=== PATIENT | male | born 1955 | race Caucasian/White ===

== ENCOUNTER → 2017-06-09 12:39 | Outpatient (CLI) | payer MEDICAID, SELFPAY ==
--- NOTE | 2017-06-09 12:42 | STE_ITS ---
Reason For Study: ASHD WITHOUT ANGINA Stress Results Protocol: Dobutamine Protocol Maximum Predicted HR: 161 bpm Target HR: 137 bpm% Maximum Predicted HR: 88 % DurationHeart Rate Stage (mm:ss) (bpm) BPDos eComment BASELINE 87 148/89 STAGE 1 3:50 10 9 160/7310.00 STAGE 2 2:54 14 2 166/8020.00 RECOVERY 102 142/8 7 4 CC DEFINITY FOR TEST Stress Duration: 6:44 mm:ss Maximum Stress HR: 142 bpm Baseline Echocardiogram Findings The estimated ejection fraction is 65 %. Stress Echo Wall motion Data Resting WMIntermediate WMStress WM Resting Wall Motion Wall Motion Stress No regional wall motion No regional wall motion abnormalities noted. abnormalities noted. EKG Data Normal intervals are noted. The patient was titrated from 10 mcg to a maximum of 20 mcg of dobutamine during the stress. The maximum heart rate attained was 148 beats per minute. This was 91% of maximum predicted heart rate. During dobutamine infusion, there were no ST or T wave changes noted to suggest ischemia. Interpretation Summary The study was technically difficult. Contrast injection was performed. The estimated ejection fraction is 65 %. The patient was titrated from 10 mcg to a maximum of 20 mcg of dobutamine during the stress. Normal adequate dobutamine echocardiogram. Negative for ischemia by EKG and echocardiographic criteria. No anginal symptoms noted. No arrhythmias noted. Rare PVCs noted. Hypertensive blood pressure response to dobutamine. Test terminated due to attainment of target heart rate. Final LVEF of 70%. No complications. Decreased sensitivity due to very poor echo windows. Ordering Physician: Stefan Lorenzana Referring Physician: Stefan Lorenzana Performed By: Esther Nicholson, RDNINFA, RVT
== END ==
PROVIDERS: Family Provider Internal Medicine; PCP Internal Medicine; Visit Provider Internal Medicine Cardiovascular Disease
DX: I25.10 Atherosclerotic heart disease of native coronary artery without angina pectoris (principal); R07.9 Chest pain, unspecified; E78.4 Other hyperlipidemia; R07.89 Other chest pain
CPT/HCPCS: 93017; 93350; J7030; Q9957; A4216; C8928

== ENCOUNTER 2017-12-12 08:11 | Day surgery (SDC) | payer MEDICAID, SELFPAY ==
[2017-12-12 07:05] VITALS: BMI 31.3
[2017-12-12 08:26] LABS: Prothrombin Time Fingerstick 12.4 SEC (11.9-14.4)
--- NOTE | 2017-12-12 10:28 | CL.D_ITS ---
Patient Name: CORIE TAN Study Date: 12/12/2017 Performing: Harrison Fontenot MD Ht: inches cm : 1955 Wt: lbs kg Age: 62 Gender: male BSA: PROCEDURE(S) PERFORMED NA34-SHL/COR/LV CLINICAL PROFILE AND INDICATIONS Indications: Other Heart Failure: None Stress/Imaging Stress/Image Study Performed: No CAD Presentations: Symptom unlikely to be ischemic. CONCLUSIONS Mild coronary artery disease with no obstructive segments noted RECOMMENDATIONS Medical therapy DESCRIPTION OF PROCEDURE The patient arrived to the procedure lab. The risks and benefits of the procedure as well as a full d escription of our services here and current unavailability of surgical backup were fully explained to the patient and/or their significant other prior to the catheterization. The Timeout was completed, verifying the correct patient and procedure. The patient's procedural site was prepped and draped in the usual fashion. Local anesthetic was given subcutaneously to right groin region with Lidocaine 2%. Using a modified Seldinger technique, arterial access was obtained via the right femoral artery, a 5 Fr sheath was inserted. Left Coronary Artery selective angiography was performed in multiple views u sing a 5 Fr. JL4 catheter. Right Coronary Artery selective angiography was then performed in multiple views using a 5 Fr. 3DRC (Raj) catheter. Left Ventriculography was performed in WERNER projection using a 5 Fr. Pigtail catheter. LV to AO pullback pressures were then recorded.Contrast was injected through the sheath and the Right Iliac and Femoral artery were assessed for possible closure device.T he arterial sheath was pulled and manual compression applied until hemostasis is achieved. CORONARY ANGIOGRAPHY DOMINANCE: Right Dominant LEFT HEART ASSESSMENT Left Ventricular Ejection Fraction: by LV Gram 60 % Normal Left Ventricular systolic function LEFT MAIN: Angiographically normal LEFT ANTERIOR DECENDING ARTERY: Mild luminal irregularities MID LAD: Moderate luminal irregularities up to 50% CIRCUMFLEX ARTERY: Mild luminal irregularities RIGHT CORONARY ARTERY: Mild luminal irregularities COMPLICATIONS No Complications PROCEDURE MEDICATIONS Versed 1 mg IV Fentanyl 25 mcg IV Oxygen: 4 L/min via nasal cannula SUMMARY OF HEMODYNAMIC DATA Time AIR REST ECG 09:01:53 AO 112/70 (88) SA 10:00:16 LV 117/3, 9 10:06:48 LV 115/3, 9 10:06:54 LV 122/3, 11 10:08:40 LVp 120/1, 11 10:08:55 AOp 117/64 (87) 10:09:00 Signed By Harrison Fontenot MD On 12/12/2017 10:27:42 Harrison Fontenot MD
== END 2017-12-12 15:46 | disposition home or self-care (01) ==
PROVIDERS: Family Provider Internal Medicine; PCP Internal Medicine; Referring Provider Internal Medicine Cardiovascular Disease; Visit Provider Internal Medicine Cardiovascular Disease
DX: I25.10 Atherosclerotic heart disease of native coronary artery without angina pectoris (principal); I73.9 Peripheral vascular disease, unspecified; I10 Essential (primary) hypertension; E78.5 Hyperlipidemia, unspecified; J44.9 Chronic obstructive pulmonary disease, unspecified; G40.409 Other generalized epilepsy and epileptic syndromes, not intractable, without status epilepticus; G47.33 Obstructive sleep apnea (adult) (pediatric); F17.210 Nicotine dependence, cigarettes, uncomplicated; E66.9 Obesity, unspecified; Z68.31 Body mass index [BMI] 31.0-31.9, adult; R07.9 Chest pain, unspecified; R94.39 Abnormal result of other cardiovascular function study; R00.2 Palpitations; Z86.718 Personal history of other venous thrombosis and embolism; Z86.711 Personal history of pulmonary embolism; Z79.01 Long term (current) use of anticoagulants; Z79.899 Other long term (current) drug therapy
CPT/HCPCS: 36416; 85610; 93458; 99152; 99153; C1760; J7040; Q9967; J2405

== ENCOUNTER 2017-12-14 14:04 | Emergency (ER) | payer MEDICAID, SELFPAY ==
[2017-12-14 14:05] VITALS: BP 140/84; PULSE 86; RESP 14; TEMP 37.4; O2SAT 94; BMI 31.6
[2017-12-14 16:16] VITALS: BP 134/80; PULSE 80; RESP 18; O2SAT 95
--- NOTE | 2017-12-14 16:27 | RAD_ITS ---
STUDY: X-RAY - LEFT SHOULDER REASON FOR EXAM: Male, 62 years old. Trauma TECHNIQUE: 2 view(s) of the shoulder. COMPARISON: None. FINDINGS: Normal glenohumeral articulation. Normal acromioclavicular joint. Normal acromion. There is a questionable cortical step off of the lateral aspect of the humeral head noted on the transscapular view. The soft tissue structures are unremarkable. Normal visualized pulmonary apex. RAD/Shoulder min 2 Views IMPRESSION: Questionable cortical step off of the lateral aspect of the humeral head noted on the transscapular view raising the suspicion of fracture. If clinically indicated, CT of the left shoulder would be helpful for further evaluation. Electronically Signed: Ford Craig MD at 16:49 EDT , Service support ,
--- NOTE | 2017-12-14 17:21 | ED.VISSUMM ---
- ER Visit Summary Date of Service: 12/14/17 Chief Complaint: [Injury left shoulder] History of Present Illness: The patient is a 62 M [presents the emergency department complaint of injury to his left shoulder that occurred 3 months ago. Patient states that his fianc?s daughter was falling as she was having a seizure and he try to catch her with his left arm. Patient immediately felt a tearing-like sensation in his left shoulder. Patient's had severe pain since that time. Patient states the pain is worse with certain movements. Patient is right-hand dominant. Patient also states he had a heart cath 2 days ago which was unremarkable.] Physical Examination: [HEENT-PERRLA, EOMI. Cranial nerves II through XII grossly intact. TMs clear. Mucous membranes moist. No adenopathy. Cardiovascular-regular rate and rhythm without murmur or ectopy Lungs-clear to auscultation, chest wall stable without crepitus or subcu emphysema Abdomen-normoactive bowel sounds, soft, nontender, no rebound or rigidity, no peritoneal signs. Extremities-intact ?4, normal range of motion, normal pulses, atraumatic]. Left shoulder-patient has diffuse tenderness over the glenohumeral joint. There is no obvious deformity or sulcus sign. Patient has pain with abduction and has a hard time resisting abduction at the glenohumeral joint. He is neurovascular intact distally. Deep tendon reflexes are plus 2 out of 4 bilaterally at the bicep and tricep as well as the brachial radialis. Test Results: [X-ray of the left shoulder read by radiology as questionable cortical defect of the humeral head on one view raising possibility for an avulsion type fracture.] Emergency Department Course and Treatment: [Patient will receive a sling in the emergency department. I suspect patient may have injured his rotator cuff however patient will be referred to orthopedics on-call for follow-up.] Treatment Plan: [Follow-up with orthopedics and given a sling. Patient given a prescription for [place] for pain] Disposition: [Discharged home in stable condition] Impression: [Left humeral head avulsion fracture with possible internal derangement of shoulder] This note was generated with [employer] Worksation software. It may contain incorrect words, spelling, and punctuation that were not noted in review of the chart prior to signing ED Disposition - Plan for ED Patient: Chief Complaint: Upper Extremity Injury Referrals: Josefina Newby MD [Primary Care Provider] -
--- NOTE | 2017-12-14 17:23 | ED.DEP ---
ED Disposition - Plan for ED Patient: Chief Complaint: Upper Extremity Injury Instructions: ED Sprain Shoulder, ED Fx Shoulder Prescriptions: Hydrocodone/Acetaminophen [[place] 5-325 Tablet] 1 - 2 ea PO 4X/DAY PRN PRN 5 Days #20 tab PRN Reason: Pain Referrals: Josefina Newby MD [Primary Care Provider] - Tyler De León MD [STAFF PHYSICIAN] - 3-5 Days
[2017-12-14 17:30] VITALS: BP 140/68; PULSE 86; RESP 20; O2SAT 96
== END 2017-12-14 17:31 | disposition home or self-care (01) ==
PROVIDERS: Emergency Provider Emergency Medicine; Family Provider Internal Medicine; PCP Internal Medicine
DX: S42.292A Other displaced fracture of upper end of left humerus, initial encounter for closed fracture (principal); X58.XXXA Exposure to other specified factors, initial encounter; Y93.89 Activity, other specified; J44.9 Chronic obstructive pulmonary disease, unspecified; Z72.0 Tobacco use
CPT/HCPCS: 73030; 99283

== ENCOUNTER 2018-04-29 01:15 | Observation (INO) | payer MEDICAID, SELFPAY ==
[2018-04-29] VITALS (16 sets, daily range): BP systolic 86–130; BP diastolic 66–98; PULSE 81–120; RESP 12–35; TEMP 36.9–37.8; O2SAT 91–97; BMI 33.4; BMI 31.1
--- NOTE | 2018-04-29 01:27 | EKG12_ITS ---
Test Reason : SOB Blood Pressure : / mmHG Vent. Rate : 115 BPM Atrial Rate : 115 BPM P-R Int : 142 ms QRS Dur : 088 ms QT Int : 326 ms P-R-T Axes : 079 063 080 degrees QTc Int : 450 ms Sinus tachycardia Otherwise normal ECG Confirmed by ADITHYA AVILES, JOSSELINE ([id number]), deputy editor in chief BRODY COLLINS ([id number]) on 05/02/2018 4:48:28 PM Referred By: DC Confirmed By:JOSSELINE HAJI MD
[2018-04-29] MEDS: Ipratropium/Albuterol Sulfate 3 ML AMPUL.NEB INHALATION ×3 (01:35→11:09)
[2018-04-29] MEDS: MethylPREDNISolone 125 MG/2 ML Vial IV (01:36)
[2018-04-29 01:38] LABS: Absolute Lymphocyte Count 2.77 X10^3/ul (0.83-4.51); Absolute Neutrophil Count 2.9 X10^3/uL (2.0-7.7); Basophil# 0.02 X10^3/uL; Basophil% 0.3 % (0-1); Eosinophil# 0.07 X10^3/uL; Hematocrit 48.1 % (40-54); Lymphocyte # 2.77 X10^3/ul (4.0); Lymphocyte % 38.2 % (19-41); Mean Corp Hgb Conc 33.3 g/gl (32-36); Mean Corpuscular Hgb 34.9 pg (27.0-32.0); Mean Corpuscular Volume 104.8 fL (80-94); Mean Platelet Vol. 10.2 fl (6.2-12.0); Monocyte% 20.7 % (0-10); Neutrophil # 2.86 X10^3/uL (2.7-7.7); Neutrophil % 39.2 % (47-70); Platelet Count 114 K/mm3 (150-450); RBC Distribution Width CV 13.2 % (11.6-14.6); RBC Distribution Width SD 50.4 fl (35.1-43.9); Red Blood Count 4.59 M/mm3 (4.6-6.2); White Blood Count 7.3 K/mm3 (4.4-11.0)
[2018-04-29 01:39] LABS: POSITIVE COUNT NO; POSITIVE DIFFERENTIAL NO; POSITIVE MORPHOLOGY NO
--- NOTE | 2018-04-29 01:40 | RAD_ITS ---
STUDY: X-RAY CHEST REASON FOR EXAM: Male, 62 years old. Sore throat TECHNIQUE: Single frontal view of the chest. COMPARISON: None. FINDINGS: Chronic interstitial lung changes without superimposed acute alveolar disease. There is no demonstrated pleural abnormality. Normal size heart. Normal mediastinum and angie. Normal visualized pulmonary arteries. There is atherosclerotic calcification of the aortic arch with tortuosity. Normal visualized thoracic spine. Normal visualized ribs, clavicles, and shoulders. There is no demonstrated abnormality of the visualized soft tissue structures of the upper abdomen. RAD/Chest 1 View (Portable) IMPRESSION: Chronic interstitial lung changes without superimposed acute alveolar disease. Electronically Signed: Trell Sal MD at 2:25 EST Tel , Service support ,
[2018-04-29 01:45] LABS: International Normalized Ratio 1.4; Prothrombin Time (Protime)PT. 17.2 SECONDS (11.7-14.9)
[2018-04-29 01:55] LABS: ALB/GLOB Ratio 0.8 RATIO (0.9-2.4); AST(SGOT) 41 U/L (15-37); Alanine Aminotransfer ALT/SGPT 22 U/L (16-61); Albumin, Serum 3.1 g/dL (3.2-5.0); Alkaline Phosphatase 83 U/L (45-117); Anion Gap 6 (5-15); BUN 11 mg/dL (7-18); BUN/Creat Ratio 15.9 RATIO (10-20); Calcium,Total 8.7 mg/dL (8.5-10.1); Chloride 102 mmol/L (98-107); Creatinine, Serum 0.69 mg/dL (0.70-1.30); EST Glomerular Filtration Rate 123 mL/min (>60); Est Glom Filt Rate - Afr Amer 149 mL/min (>60); Estimated Creatinine Clearance 113.85 ml/min; Globulin 4.1 g/dL (2.2-4.2); Glucose 96 mg/dL (74-106); Potassium 4.4 mmol/L (3.5-5.1); Protein, Total 7.2 g/dL (6.4-8.2); Sodium Level 134 mmol/L (136-145)
--- NOTE | 2018-04-29 02:00 | CPS ---
INCREASED IPAP TO 16-DR AWARE
[2018-04-29 02:01] LABS: Lactic Acid 1.1 mmol/L (0.4-2.0)
[2018-04-29 02:06] LABS: Allen Test POS; Base Excess 1 mmol/L (-2 to +2); Bicarbonate 25.5 mmol/L (22-26); Blood Gas Specimen Type ART; EPAP 7; FI02 40; IPAP 16; PO2 95 mmHG (75-100); RR 12; SITE L Radial; SO2 97 % (95-99); Time Given 154; Total Carbon Dioxide 27 mmol/L
[2018-04-29 04:04] LABS: Bacteria 0 SEEN /hpf (None Seen); Mucous, Urine 0 SEEN /hpf (<or=2+); White Blood Cells 0 SEEN /hpf (0-5)
--- NOTE | 2018-04-29 04:06 | CT_ITS ---
STUDY: CTA CHEST REASON FOR EXAM: Male, 62 years old. SOB RADIATION DOSAGE (If Supplied By Facility): CTDIvol = ( 17.87 ) mGy, DLP = ( 601.92 ) mGycm TECHNIQUE: The examination was performed with the intravenous administration of Isovue 370 100ML IV. Post-processing of the angiographic images was performed, with multiplanar reformation and 3D reconstruction. Individualized dose optimization techniques were used for this CT. COMPARISON: 06/18/2015 FINDINGS: Normal enhancement of the main pulmonary artery and right and left pulmonary arteries. Normal enhancement of the bilateral peripheral pulmonary arteries. There is no demonstrated pulmonary embolism. Normal thoracic aorta and visualized great vessels. There is no demonstrated aortic dissection. Normal heart and pericardium. Normal mediastinum. Calcified right hilar lymph nodes. Normal visualized trachea and bronchi. Pulmonary emphysema. Normal pleura. Normal chest wall structures. Normal osseous structures. Normal visualized upper abdomen. CT/CTA Chest W/WO Contrast IMPRESSION: Normal CTA chest examination, without a demonstrated pulmonary embolism or arterial dissection. Electronically Signed: Trell Sal MD at 5:36 EST Tel , Service support ,
[2018-04-29 04:07] LABS: Color, Urine Yellow (Yellow); Glucose, Dipstick Normal (Normal); Ketone-Dipstick 5 mg/dl (Negative); Leukocyte Esterase-Dipstick Negative /ul (Negative); Nitrite-Dipstick Negative (Negative); Occult Blood-Urine 10 /ul (Negative); Protein-Dipstick Negative (Negative); Urine Bilirubin Dipstick Negative (Negative); Urine Clarity Sl. Cloudy (Clear); Urine Urobilinogen 1 mg/dl (Normal)
[2018-04-29 04:13] LABS: Amorphous Sediment 1+ URATE; Red Blood Cells-Urine 0-5 SEEN /hpf (0-5); Squamous Epithelial Cells - UA 0-5 SEEN /hpf (0-5)
--- NOTE | 2018-04-29 04:43 | HP.PCM_ITS ---
Problem List (1) COPD exacerbation Status: Chronic History of Present Illness Date of Admission: 04/29/18 Chief Complaint: shortness of breath The patient is a 62 year old M with a significant history of COPD; seizure disorder and bilateral lower extremity edema who presented to the emergency department because of 1 day history of progressively worsening shortness of breath. Associated with his symptoms is wheezing and increased cough. Also he reports that he has productive cough of shields to greenish sputum which is changed from previous. Further, he had a sore throat. Emergency department doctor reported that patient was hypoxic with respiratory rate in the 80s for which reason he was on a nonrebreather mask and he was transitioned to BiPAP. Also patient was noted to be tripoding and was having purse lips breathing. At the emergency department patient was given steroids and DuoNeb. Because he complained of chest pain a CTPA was done but it was unremarkable for PE. Patient reported that he has a CPAP machine that is broken so for each night he wakes up 3-4 times because of difficulty breathing. He reported that his CPAP machine will be delivered to his home on 05/01/2018. Also, he reported that he has been too weak and he is unable to maintain a steady gait to walk. At emergency department he was found to have INR of 1.4. 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 Past Medical History Past Medical History (Chronic Problems): Chronic Problems COPD exacerbation (Chronic) History of DVT (deep vein thrombosis) (Chronic) History of pulmonary embolism (Chronic) Seizure disorder (Chronic) COPD (chronic obstructive pulmonary disease) (Chronic) Allergies No Known Allergies Allergy (Verified 04/29/18 01:22) Home Medications: Ambulatory Orders Medication Instructions Recorded Divalproex Sodium [Depakote ER] 1,000 mg PO QHS 10/30/14 Divalproex Sodium [Depakote ER] 500 mg PO BID 10/30/14 Warfarin [Coumadin] 5 mg PO SUMOWETHFRSA 10/30/14 Albuterol Inhaler [Ventolin Hfa] 1 - 2 puff INHALATION Q4H PRN PRN 05/28/16 Gabapentin [Neurontin] 300 - 600 mg PO TID 05/28/16 Mometasone/Formoterol [Dulera 200 2 puff IH BID 05/28/16 Mcg/5 Mcg Inhaler] Potassium Chloride [K-Dur] 10 meq PO TID 05/28/16 Acetaminophen [Tylenol] 650 mg PO Q6H PRN 12/12/17 Albuterol Sulfate [Proventil Hfa] 6.7 gm IH Q4H PRN 12/12/17 Cholecalciferol (Vitamin D3) 50,000 unit PO Q7D 12/12/17 [Vitamin D] Furosemide [Lasix] 40 mg PO BREAKFAST 12/12/17 Guaifenesin [Mucinex] 600 mg PO BID 12/12/17 Ipratropium/Albuterol Sulfate 3 ml INHALATION Q4HWA.RT 12/12/17 [Duoneb] Nitroglycerin [Nitrostat] 0.4 mg SUBLINGUAL Q5M PRN 12/12/17 Oxygen, Home [Home Oxygen] 2 - 4 lpm NASAL DAILY 12/12/17 Pravastatin [Pravachol] 40 mg PO QHS 12/12/17 Varenicline [Chantix] 1 mg PO BID 12/12/17 Furosemide [Lasix] 20 mg PO LUNCH 04/29/18 Oxycodone HCl/Acetaminophen 1 - 2 each PO Q6H PRN PRN 04/29/18 [Endocet 5-325 Tablet] Tiotropium [place] [Spiriva 18 MCG] 2 puff INHALATION DAILY 04/29/18 Warfarin [Coumadin ([facility])] 2 mg PO TU 04/29/18 Surgical History: no surgical history, appendectomy, - - Liver biopsy Psychiatric History: No pertinent psych hx Smoking Status: Current every day smoker Alcohol: None - *Family History Maternal History Items: COPD, - Paternal History Items: Unknown - Does not know his paternal medical history Review of Systems Constitutional: Reports: Chills, Weakness. Denies: Weight Change HEENT: Denies: Head Aches, Sinus Congestion, Sinus Drainage Cardiovascular: Denies: Chest Pain, Palpitations Respiratory: Reports: Cough, Shortness of Breath, Shortness of breath upon exertion, Wheezing. Denies: Sputum production Gastrointestinal: Denies: Abdominal Pain, Nausea, Vomiting Genitourinary: Denies: Dysuria Musculoskeletal: Denies: Joint Pain, Joint Tenderness Skin: Denies: Rash, Wounds Neurological: Denies: Numbness, Tingling, Focal weakness Psychiatric: Denies: Anxiety, Depression, Homicidal Ideations, Suicidal Ideations Hematologic/ Lymphatic: Denies: Easy Bruising, Easy Bleeding VTE Information - Inpt Only VTE Present on Admission: No VTE Mechan Device Prophylaxis: None VTE Pharm Prophylaxis ordered?: No Reason prophylaxis not ordered:: Treatment Not Indicated - History of DVT and PE and started on Lovenox to bridge his Coumadin. - Physical Exam General: Alert, Oriented x3, Cooperative HEENT: Atraumatic, PERRLA, EOMI, Normocephalic Neck: Supple, No JVD, Negative Carotid Bruits Lungs: Diminished Cardiovascular: Regular rate, No murmurs Abdomen: Bowel Sounds Present, Soft, Non Tender Extremities: No edema, Capillary Refill Less than 3 Seconds Skin: No rashes, No breakdown Musculoskeletal: No Tenderness to Palpation of Joints or Extremities Neurological: Neuro grossly intact Psych/Mental Status: Normal Affect, Appropriate Vital Signs Temp Pulse Resp BP Pulse Ox 98.9 F 102 H 22 H 127/98 H 93 04/29/18 03:00 04/29/18 03:00 04/29/18 03:00 04/29/18 03:00 04/29/18 03:00 Oxygen Flow Rate (L/min) 15 Oxygen Delivery Method Bi-pap Weight: 102.6 kg Body Mass Index (BMI) 33.4 Laboratory Tests Past 24 Hrs 04/29/18 04/29/18 04/29/18 01:25 01:25 01:25 WBC 7.3 RBC 4.59 L Hgb 16.0 Hct 48.1 MCV 104.8 H MCH 34.9 H MCHC 33.3 RDW 13.2 RDW Differential 50.4 H Plt Count 114 L MPV 10.2 Immature Gran % (Auto) 0.600 Neut % (Auto) 39.2 L Lymph % (Auto) 38.2 [place] % (Auto) 20.7 H Eos % (Auto) 1.0 Baso % (Auto) 0.3 Absolute Neuts (auto) 2.9 Absolute Lymphs (auto) 2.77 Total Counted Not Reportable PT 17.2 H INR 1.4 APTT 42.0 H Specimen Type Sample Site pH Bicarbonate Actual POC Total CO2 Base Excess O2 Saturation O2 % ABG pCO2 ABG pO2 Dariusz Test Respiration Rate O2 Delivery Device EPAP IPAP Blood Gas Notified Whom Blood Gas Notified Time Sodium 134 L Potassium 4.4 Chloride 102 Carbon Dioxide 26.0 Anion Gap 6 BUN 11 Creatinine 0.69 L Estim Creat Clear Calc 113.85 Est GFR (MDRD) Af Amer 149 Est GFR (MDRD) Non-Af 123 BUN/Creatinine Ratio 15.9 Glucose 96 Lactic Acid Calcium 8.7 Total Bilirubin 0.50 AST 41 H ALT 22 Alkaline Phosphatase 83 Troponin I < 0.015 Total Protein 7.2 Albumin 3.1 L Globulin 4.1 Albumin/Globulin Ratio 0.8 L Urine Color Urine Clarity Urine pH Ur Specific [place] Urine Protein Urine Glucose (UA) Urine Ketones Urine Occult Blood Urine Nitrite Urine Bilirubin Urine Urobilinogen Ur Leukocyte Esterase Urine RBC Urine WBC Ur Squamous Epith Cells Amorphous Sediment Urine Bacteria Urine Mucus 04/29/18 04/29/18 04/29/18 01:25 01:59 04:00 WBC RBC Hgb Hct MCV MCH MCHC RDW RDW Differential Plt Count MPV Immature Gran % (Auto) Neut % (Auto) Lymph % (Auto) [place] % (Auto) Eos % (Auto) Baso % (Auto) Absolute Neuts (auto) Absolute Lymphs (auto) Total Counted PT INR APTT Specimen Type ART Sample Site L Radial pH 7.40 Bicarbonate Actual 25.5 POC Total CO2 27 Base Excess 1 O2 Saturation 97 O2 % 40 ABG pCO2 41.0 ABG pO2 95 Dariusz Test POS Respiration Rate 12 O2 Delivery Device Bi / C PAP EPAP 7 IPAP 16 Blood Gas Notified Whom ED Blood Gas Notified Time 154 Sodium Potassium Chloride Carbon Dioxide Anion Gap BUN Creatinine Estim Creat Clear Calc Est GFR (MDRD) Af Amer Est GFR (MDRD) Non-Af BUN/Creatinine Ratio Glucose Lactic Acid 1.1 Calcium Total Bilirubin AST ALT Alkaline Phosphatase Troponin I Total Protein Albumin Globulin Albumin/Globulin Ratio Urine Color Yellow Urine Clarity Sl. Cloudy Urine pH 5.0 Ur Specific [place] 1.020 Urine Protein Negative Urine Glucose (UA) Normal Urine Ketones 5 H Urine Occult Blood 10 H Urine Nitrite Negative Urine Bilirubin Negative Urine Urobilinogen 1 H Ur Leukocyte Esterase Negative Urine RBC 0-5 SEEN Urine WBC 0 SEEN Ur Squamous Epith Cells 0-5 SEEN Amorphous Sediment 1+ URATE Urine Bacteria 0 SEEN Urine Mucus 0 SEEN Assessment/Plan All Active Problems COPD with acute exacerbation (Acute) SIRS (systemic inflammatory response syndrome) (Acute) Weakness (Acute) Thrush (Acute) Hypokalemia (Acute) The patient is a 62 year old M with a significant history of COPD; seizure disorder; DVT and PE and bilateral lower extremity edema who presented to the emergency department because of 1 day history of progressively worsening shortness of breath. COPD exacerbation CXR independently reviewed confirms no acute pathology. EKG independently reviewed confirms sinus tachycardia Scheduled DuoNeb Albuterol as needed Received Solu-Medrol at the emergency department. Telemetry continued. Because of reported chills; a T-max of 100 at the emergency department and with a productive cough that has changed patient will be started on antibiotics. Because he is on Coumadin and azithromycin can potentiate the Coumadin will put patient on Levaquin. Oxygen as needed. At the time of evaluation patient was off BiPAP and he was tolerating nasal cannula. CPAP nightly. PT and OT to work the patient. Epilepsy He reported that his last seizure was about a week ago Depakote continued Instructed follow-up with PCP and neurologist. Bilateral lower extremities Laxis with potassium supplementation continued. Chest pain Patient reported that has had chest pain for about 4 months he reported that previously he has been evaluated with a stress test and results was not impressive. Serial troponin ordered. History of DVT and PE Because because of subtherapeutic INR and if any chest suspicion of PE patient received therapeutic dose of Lovenox at the emergency department. Continue Lovenox to bridge Coumadin. Chronic pain Home narcotic continued ALEJANDRA CPAP ordered. DVT prophylaxis Not indicated since patient is on Lovenox and Coumadin for history of PE. Code Visit OBSV E&M: 14138 Initial observation care L3
--- NOTE | 2018-04-29 05:32 | ED.DCSUM_ITS ---
- ER Visit Summary Date of Service: 04/29/18 Chief Complaint: Shortness of breath History of Present Illness: The patient is a 62 M with shortness of breath that started yesterday and got worse. He has a history of COPD. He reports a cough with sputum. Denies fever. He does have some right side chest pain. He has a history of PE and takes Coumadin. He is a smoker. He was hypoxic for EMS but responded to nonrebreather. Physical Examination: Afebrile and vital signs unremarkable except for heart rate of 113 and a respiratory rate of 26. 95% on nonrebreather. HEENT exam unremarkable. Heart tachycardic but regular. Lungs show wheezing and diminished sounds in all [place]. Abdomen soft and nontender. Extremities nontender with no edema. Skin normal in color. Test Results: EKG showed sinus rhythm at a rate of 115. Platelets 114, sodium 134, creatinine 0.69, AST 41, INR 1.4, troponin normal, lactate normal, ABG normal, cultures pending. Chest x-ray showed chronic changes. CTA chest pending. Emergency Department Course and Treatment: Patient presents with respiratory failure and was started on BiPAP. He was treated with Solu-Medrol and DuoNeb and had improvement in his symptoms. He was tolerating BiPAP well. Sepsis workup was also performed but this was all fairly unremarkable. Lactate normal. EKG showed tachycardia but was otherwise unremarkable and troponin normal. His INR was subtherapeutic. I spoke with him about this. He said he did have chest pain and so a CTA was performed. Results are pending. Patient was treated with Lovenox while awaiting results. I spoke with the hospitalist who will admit for further care. Treatment Plan: As above Disposition: Admission Impression: 1. COPD exacerbation 2. Subtherapeutic INR This note was generated with [employer] software. It may contain incorrect words, spelling, and punctuation that were not noted in review of the chart prior to signing ED Disposition - Plan for ED Patient: Referrals: Josefina Newby MD [Primary Care Provider] -
[2018-04-29] MEDS: Enoxaparin 100 MG/ML Syringe SC (05:46)
[2018-04-29] MEDS: levoFLOXacin 750 MG Tablet PO (08:03)
[2018-04-29] MEDS: guaiFENesin 600 MG Tablet PO (08:04)
[2018-04-29] MEDS: Gabapentin 300 MG Capsule PO (08:04)
[2018-04-29] MEDS: Furosemide 40 MG Tablet PO (08:04)
--- NOTE | 2018-04-29 08:27 | CPS ---
PT STATED HE FELT S.O.B BECAUSE ROOM WAS TO HOT. THERMOSTAT WAS TURNED DOWN AND COAL MILL OPERATOR WAS GOING TO GET PT A FAN. PT WAS OFFERED BIPAP FOR COMFORT. PT REFUSED BIPAP AT THIS TIME. PT WAS INFORMED TO LET NURSE KNOW IF HE CHANGES MIND AND WOULD LIKE BIPAP.
--- NOTE | 2018-04-29 11:55 | DCINST_ITS ---
- Discharge Diagnoses Current Active Problems: Current Active and Chronic Problems COPD exacerbation (Chronic) You will use the following diet at home:: No restrictions Your food should be the consistency of: Regular Your liquids should be the consistency of: Regular/Thin Discharge Activity: Return to Normal Activity Weight Bearing Status: Full weight bearing Allergies/Adverse Reactions: Allergies No Known Allergies Allergy (Verified 04/29/18 01:22) Medications to take at Discharge Divalproex Sodium [Depakote ER] 1,000 mg PO QHS 10/30/14 Divalproex Sodium [Depakote ER] 500 mg PO BID 10/30/14 Albuterol Inhaler [Ventolin Hfa] 1 - 2 puff INHALATION Q4H PRN PRN 05/28/16 Gabapentin [Neurontin] 300 - 600 mg PO TID 05/28/16 Mometasone/Formoterol [Dulera 200 Mcg/5 Mcg Inhaler] 2 puff IH BID 05/28/16 Potassium Chloride [K-Dur] 10 meq PO TID 05/28/16 Acetaminophen [Tylenol] 650 mg PO Q6H PRN 12/12/17 Albuterol Sulfate [Proventil Hfa] 6.7 gm IH Q4H PRN 12/12/17 Cholecalciferol (Vitamin D3) [Vitamin D3] 50,000 unit PO Q7D 12/12/17 Furosemide [Lasix] 40 mg PO BREAKFAST 12/12/17 Guaifenesin [Mucinex] 600 mg PO BID 12/12/17 Ipratropium/Albuterol Sulfate [Duoneb] 3 ml INHALATION Q4HWA.RT 12/12/17 Nitroglycerin [Nitrostat] 0.4 mg SUBLINGUAL Q5M PRN 12/12/17 Oxygen, Home [Home Oxygen] 2 - 4 lpm NASAL DAILY 12/12/17 Pravastatin [Pravachol] 40 mg PO QHS 12/12/17 Varenicline [Chantix] 1 mg PO BID 12/12/17 Furosemide [Lasix] 20 mg PO LUNCH 04/29/18 Levofloxacin [Levaquin] 500 mg PO DAILY #5 tab 04/29/18 MethylPREDNISolone DosePak [Medrol DosePak] 4 mg PO UD #1 box 04/29/18 Oxycodone HCl/Acetaminophen [Endocet 5-325 Tablet] 1 - 2 each PO Q6H PRN PRN 04/29/18 Tiotropium [place] [Spiriva 18 MCG] 2 puff INHALATION DAILY 04/29/18 Warfarin [Coumadin] 5 mg PO DAILY #1 tablet 04/29/18 The following prescriptions were given: Levofloxacin [Levaquin] 500 mg PO DAILY #5 tab MethylPREDNISolone DosePak [Medrol DosePak] 4 mg PO UD #1 box Warfarin [Coumadin] 5 mg PO DAILY #1 tablet Primary Care Physician: Josefina Newby MD [Primary Care Provider] - Please follow up with your Primary Care Physician in: in one week to get your INR checked Test Results: Test results from this visit will be discussed in further detail at your follow-up appointment, if applicable. Please Follow Up With: Thomas Van MD When: as directed
[2018-04-29] MEDS: Divalproex (ER) 500 MG Tablet PO (12:16)
[2018-04-29] MEDS: Furosemide 20 MG Tablet PO (12:17)
--- NOTE | 2018-04-30 21:31 | PCM.DC.SUM ---
Discharge Date and Diagnosis Date of Admission: 04/29/18 Date of Discharge: 04/29/18 - Primary Discharge Diagnosis #1 acute exacerbation of COPD #2 subtherapeutic INR #3 seizure disorder - Secondary Discharge Diagnosis Chronic Problems COPD exacerbation (Chronic) History of DVT (deep vein thrombosis) (Chronic) History of pulmonary embolism (Chronic) Seizure disorder (Chronic) COPD (chronic obstructive pulmonary disease) (Chronic) Hospital Course and Treatment Operations: None Procedures: None Summary of Care Provided: The patient is a 62 year old M was seen in the emergency room with a chief complaint of shortness of breath. Patient stated his BiPAP machine was broken and he was unable to use it at home, he said that he was going to get a new BiPAP machine in 2 days. Patient complained of cough with yellow sputum production. Patient was examined in the ER, he was initially placed on a non-rebreather, then transition over to BiPAP, then nasal cannula. Patient was given aerosol treatments in the emergency room, CTA was performed which showed no evidence of pneumonia or PE. Patient was given IV Solu-Medrol and labs were obtained which were unremarkable except for a subtherapeutic INR. Patient was admitted for acute exacerbation of COPD, he remained on nasal cannula O2 and IV Solu-Medrol, he was evaluated the morning of 04/29/18 and was noted to be comfortable on his home oxygen setting. Patient wanted to be discharged home. On 04/29/18, patient was seen and examined: On examination he appeared in good health and spirits. Vital signs as documented. Skin warm and dry and without overt rashes. Neck without JVD. Lungs-breath sounds were distant bilaterally. Heart exam notable for regular rhythm, normal sounds and absence of murmurs, rubs or gallops. Abdomen unremarkable and without evidence of organomegaly, masses, or abdominal aortic enlargement. Extremities nonedematous. Neuro: Cranial nerves II through XII are grossly intact, no focal motor deficits were noted, sensation to light touch and pinprick intact. Psych: Patient is alert and oriented x3, he does not appear anxious or depressed On 04/29/18, patient was seen and examined and felt to be in stable condition for discharge home, patient was instructed to recheck his INR next week at his physician's office. - Physical Exam Vital Signs Temp Pulse Resp BP Pulse Ox 98.5 F 97 16 116/66 91 04/29/18 09:00 04/29/18 11:09 04/29/18 11:09 04/29/18 09:00 04/29/18 09:00 Oxygen Flow Rate (L/min) 4 Oxygen Delivery Method Nasal Cannula Weight: 95.6 kg Body Mass Index (BMI) 31.1 Intake and Output for Last 24 Hours 04/28/18 04/29/18 04/30/18 23:59 23:59 23:59 Intake Total 360 / 360 Balance 360 / 360 Microbiology Past 72 Hours 04/29/18 04:00 Urine Culture - Final Urine, Clean Catch Mixed Gram Positive Organisms 04/29/18 08:55 Influenza Types A,B Direct FA (ARACELI) - Final Mucosa - Nose Discharge Activity: Return to Normal Activity Weight Bearing Status: Full weight bearing Home Medications: Medications to take at Discharge Divalproex Sodium [Depakote ER] 1,000 mg PO QHS 10/30/14 Divalproex Sodium [Depakote ER] 500 mg PO BID 10/30/14 Albuterol Inhaler [Ventolin Hfa] 1 - 2 puff INHALATION Q4H PRN PRN 05/28/16 Gabapentin [Neurontin] 300 - 600 mg PO TID 05/28/16 Mometasone/Formoterol [Dulera 200 Mcg/5 Mcg Inhaler] 2 puff IH BID 05/28/16 Potassium Chloride [K-Dur] 10 meq PO TID 05/28/16 Acetaminophen [Tylenol] 650 mg PO Q6H PRN 12/12/17 Albuterol Sulfate [Proventil Hfa] 6.7 gm IH Q4H PRN 12/12/17 Cholecalciferol (Vitamin D3) [Vitamin D3] 50,000 unit PO Q7D 12/12/17 Furosemide [Lasix] 40 mg PO BREAKFAST 12/12/17 Guaifenesin [Mucinex] 600 mg PO BID 12/12/17 Ipratropium/Albuterol Sulfate [Duoneb] 3 ml INHALATION Q4HWA.RT 12/12/17 Nitroglycerin [Nitrostat] 0.4 mg SUBLINGUAL Q5M PRN 12/12/17 Oxygen, Home [Home Oxygen] 2 - 4 lpm NASAL DAILY 12/12/17 Pravastatin [Pravachol] 40 mg PO QHS 12/12/17 Varenicline [Chantix] 1 mg PO BID 12/12/17 Furosemide [Lasix] 20 mg PO LUNCH 04/29/18 Levofloxacin [Levaquin] 500 mg PO DAILY #5 tab 04/29/18 MethylPREDNISolone DosePak [Medrol DosePak] 4 mg PO UD #1 box 04/29/18 Oxycodone HCl/Acetaminophen [Endocet 5-325 Tablet] 1 - 2 each PO Q6H PRN PRN 04/29/18 Tiotropium [place] [Spiriva 18 MCG] 2 puff INHALATION DAILY 04/29/18 Warfarin [Coumadin] 5 mg PO DAILY #1 tablet 04/29/18 Following Prescrptions Were Given to Patient: Levofloxacin [Levaquin] 500 mg PO DAILY #5 tab MethylPREDNISolone DosePak [Medrol DosePak] 4 mg PO UD #1 box Warfarin [Coumadin] 5 mg PO DAILY #1 tablet Primary Care Physician: Josefina Newby MD [Primary Care Provider] - Please follow up with your Primary Care Physician in: in one week to get your INR checked Please Follow Up With: Thomas Van MD When: as directed Disposition: Home Minutes spent on discharge:: 30 Patient Condition:: Stable Medical Necessity - Tobacco Use Smoking Status: Current every day smoker Tobacco Use: Cigarettes, Cigars Meaningful Use Info Meaningful Use Diagnoses (Choose all that apply): None applicable Code Visit OBSV E&M: 34374 Observ/hosp same date L3
== END 2018-04-29 11:54 | disposition home or self-care (01) ==
LOC: ED 01:34 → PCU 05:33
PROVIDERS: Admitting Provider Hospitalist; Emergency Provider Emergency Medicine; Family Provider Internal Medicine; PCP Internal Medicine; Visit Provider Internal Medicine
DX: J44.1 Chronic obstructive pulmonary disease with (acute) exacerbation (principal); G40.909 Epilepsy, unspecified, not intractable, without status epilepticus; Z86.718 Personal history of other venous thrombosis and embolism; Z86.711 Personal history of pulmonary embolism; Z79.899 Other long term (current) drug therapy; Z79.01 Long term (current) use of anticoagulants; Z99.81 Dependence on supplemental oxygen; E87.6 Hypokalemia; G89.29 Other chronic pain; G47.33 Obstructive sleep apnea (adult) (pediatric); F17.210 Nicotine dependence, cigarettes, uncomplicated
CPT/HCPCS: 36415; 36600; 71045; 71275; 80053; 81001; 82803; 83605; 84484; 85025; 85610; 85730; 87040; 87086; 87088; 87804; 93005; 94002; 94640; 94667; 96372; 96374; 99218; 99285; 99406; Q9967; G0378

== ENCOUNTER 2018-05-02 12:56 | Inpatient (IN) | payer MEDICAID, SELFPAY ==
[2018-04-29 06:27] VITALS: BMI 31.1
[2018-05-02] VITALS (13 sets, daily range): BP systolic 118–176; BP diastolic 73–133; PULSE 76–106; RESP 12–40; TEMP 36.6–37.2; O2SAT 91–99; BMI 31.7; BMI 30.9; BMI 31.0
--- NOTE | 2018-05-02 13:40 | RAD_ITS ---
STUDY: X-RAY CHEST REASON FOR EXAM: Male, 62 years old. Shortness of breath. TECHNIQUE: Single AP portable view of the chest. COMPARISON: Comparison is made with prior study dated April 29, 2018. FINDINGS: EKG electrodes are seen. Hyperinflation. Emphysematous changes are seen in the upper lobes worse on the right side as well as bullous formation. There has been essentially no change. There is no demonstrated pleural abnormality. Normal size heart. Normal mediastinum and angie. Normal visualized pulmonary arteries. There is atherosclerotic tortuosity of the aortic arch and descending thoracic aorta. There are diffuse degenerative changes of the visualized thoracic spine. Normal visualized ribs, clavicles, and shoulders. There is no demonstrated abnormality of the visualized soft tissue structures of the upper abdomen. RAD/Chest 1 View (Portable) IMPRESSION: Hyperinflation. Emphysematous changes worse in the upper lobes and more prominent on the right side. Electronically Signed: Mack Quintanilla, at 14:15 EST , Service support ,
--- NOTE | 2018-05-02 13:40 | EKG12_ITS ---
Test Reason : CP Blood Pressure : / mmHG Vent. Rate : 107 BPM Atrial Rate : 107 BPM P-R Int : 142 ms QRS Dur : 084 ms QT Int : 334 ms P-R-T Axes : 082 066 076 degrees QTc Int : 445 ms Sinus tachycardia Otherwise normal ECG Confirmed by ADITHYA AVILES, JOSSELINE ([id number]), managing editor BRODY COLLINS ([id number] on 05/04/2018 3:47:47 PM Referred By: Savannah Saldana Confirmed By:JOSSELINE HAJI MD
[2018-05-02] MEDS: Ipratropium/Albuterol Sulfate 3 ML AMPUL.NEB INHALATION ×2 (13:57→19:02)
[2018-05-02] MEDS: Albuterol 2.5 MG/3 ML VIAL.NEB. INHALATION ×2 (13:57)
[2018-05-02 14:06] LABS: Absolute Lymphocyte Count 1.48 X10^3/ul (0.83-4.51); Absolute Neutrophil Count 3.6 X10^3/uL (2.0-7.7); Basophil# 0.01 X10^3/uL; Basophil% 0.2 % (0-1); Hematocrit 50.1 % (40-54); Hemoglobin 16.5 g/dl (13.0-16.5); Lymphocyte # 1.48 X10^3/ul (4.0); Lymphocyte % 26.5 % (19-41); Mean Corp Hgb Conc 32.9 g/gl (32-36); Mean Corpuscular Hgb 34.7 pg (27.0-32.0); Mean Corpuscular Volume 105.5 fL (80-94); Monocyte# 0.46 X10^3/uL; Monocyte% 8.2 % (0-10); Neutrophil # 3.59 X10^3/uL (2.7-7.7); Neutrophil % 64.4 % (47-70); Platelet Count 115 K/mm3 (150-450); RBC Distribution Width SD 50.7 fl (35.1-43.9); Red Blood Count 4.75 M/mm3 (4.6-6.2); White Blood Count 5.6 K/mm3 (4.4-11.0)
[2018-05-02 14:10] LABS: POSITIVE COUNT NO; POSITIVE DIFFERENTIAL NO; POSITIVE MORPHOLOGY NO
[2018-05-02 14:21] LABS: Anion Gap 6 (5-15); BUN 12 mg/dL (7-18); BUN/Creat Ratio 13.6 RATIO (10-20); Calcium,Total 8.8 mg/dL (8.5-10.1); Chloride 101 mmol/L (98-107); Creatinine, Serum 0.88 mg/dL (0.70-1.30); EST Glomerular Filtration Rate 93 mL/min (>60); Est Glom Filt Rate - Afr Amer 113 mL/min (>60); Estimated Creatinine Clearance 89.27 ml/min; Glucose 120 mg/dL (74-106); Potassium 4.4 mmol/L (3.5-5.1); Sodium Level 137 mmol/L (136-145)
[2018-05-02 15:03] LABS: International Normalized Ratio 2.1; Prothrombin Time (Protime)PT. 23.3 SECONDS (11.7-14.9)
--- NOTE | 2018-05-02 15:22 | HP.PCM_ITS ---
Problem List (1) Acute and chronic respiratory failure with hypoxia Status: Acute (2) COPD with acute exacerbation Status: Acute (3) Tobacco use Status: Chronic (4) HTN (hypertension) Status: Chronic Qualifiers: Hypertension type: essential hypertension Qualified Code(s): I10 - Essential (primary) hypertension (5) History of DVT (deep vein thrombosis) Status: Chronic (6) History of pulmonary embolism Status: Chronic (7) Seizure disorder Status: Chronic History of Present Illness Date of Admission: 05/02/18 Chief Complaint: Dyspnea, wheezing, increased RR, hypoxia per visit health care The patient is a 62 y/o M w/ PMHx: Seizure Disorder, Obesity, Chronic COPD w/ Chronic Hypoxic Respiratory Failure, History of PE/DVT, HTN who was recently discharged on 05/02/18 following evaluation and treatment for acute COPD exacerbation who notes he initially improved; however, he now returns to the [facility] ED on 05/02/18 with history of worsening dyspnea, accessory muscle usage, increased respiratory rate, audible wheezing, increased oxygenation needs with hypoxia per home health care visiting on day of ED presentation noting that he did take his antibiotic, steroid and breathing treatments as prescribed. Work-up in the ED included T 98.2, heart rate initially 106, BP 176/133, respiratory rate 40, 95% on 6 L nasal cannula, CBC with W BC 5.6, hemoglobin 16.5, platelet 115 without market shift, INR 2.1, ABG with pH 7.40, O2 saturation 93, PO2 68 on 4 L nasal cannula, BMP with glucose 120, troponin < 0.015, EKG w/ sinus tachycardia with no acute evidence of ischemia, chest x-ray with chronic COPD changes with no acute cardiopulmonary findings otherwise, rest watson viral panel pending. ED patient administered duo nebs, albuterol. Past Medical History Past Medical History (Chronic Problems): Chronic Problems COPD exacerbation (Chronic) Tobacco use (Chronic) HTN (hypertension) (Chronic) History of DVT (deep vein thrombosis) (Chronic) History of pulmonary embolism (Chronic) Seizure disorder (Chronic) COPD (chronic obstructive pulmonary disease) (Chronic) Allergies No Known Allergies Allergy (Verified 05/02/18 12:57) Home Medications: Ambulatory Orders Medication Instructions Recorded Albuterol Inhaler [Ventolin Hfa] 1 - 2 puff INHALATION Q4H PRN PRN 05/28/16 Gabapentin [Neurontin] 300 mg PO TID 05/28/16 Potassium Chloride [K-Dur] 10 meq PO TID 05/28/16 Acetaminophen [Tylenol] 650 mg PO Q6H PRN 12/12/17 Albuterol Sulfate [Proventil Hfa] 6.7 gm IH Q4H PRN 12/12/17 Nitroglycerin [Nitrostat] 0.4 mg SUBLINGUAL Q5M PRN 12/12/17 Oxygen, Home [Home Oxygen] 2 - 4 lpm NASAL DAILY 12/12/17 Varenicline [Chantix] 1 mg PO BID 12/12/17 Furosemide [Lasix] 20 mg PO BID 04/29/18 MethylPREDNISolone DosePak [Medrol 4 mg PO UD #1 box 04/29/18 DosePak] Tiotropium [place] [Spiriva 18 MCG] 2 puff INHALATION DAILY 04/29/18 Warfarin [Coumadin] 5 mg PO DAILY #1 tablet 04/29/18 Divalproex Sodium [Depakote ER] 1,000 mg PO QHS 05/02/18 Divalproex Sodium [Depakote ER] 500 mg PO 0700,1300 05/02/18 Guaifenesin [Mucinex] 600 mg PO BID 05/02/18 Levofloxacin [Levaquin] 500 mg PO DAILY 05/02/18 Mometasone/Formoterol [Dulera 200 2 puff INHALATION BID 05/02/18 Mcg/5 Mcg Inhaler] Pravastatin Sodium 40 mg PO QHS 05/02/18 Surgical History: no surgical history, appendectomy, - - Liver biopsy Psychiatric History: No pertinent psych hx Lives: Spouse/ Significant Other Smoking Status: Current every day smoker - Patient had previously been taking Chantix however recently started smoking approximately 4 cigarettes a day. Tobacco Use: Cigarettes Alcohol: None Drugs: None - *Family History Maternal History Items: COPD Paternal History Items: Unknown - Does not know his paternal medical history. Review of Systems Constitutional: Reports: Anorexia, Malaise, Weakness, Fatigue. Denies: Chills, Fever, Weight Change HEENT: Denies: Head Aches, Sinus Congestion, Sinus Drainage Cardiovascular: Denies: Chest Pain, Palpitations Respiratory: Reports: Cough, Shortness of Breath, Shortness of breath at rest, Shortness of breath upon exertion, Wheezing. Denies: Sputum production Gastrointestinal: Denies: Abdominal Pain, Nausea, Vomiting Genitourinary: Denies: Dysuria Musculoskeletal: Reports: Joint Pain. Denies: Joint Tenderness Skin: Denies: Rash, Wounds Neurological: Denies: Numbness, Tingling, Focal weakness Psychiatric: Denies: Anxiety, Depression, Homicidal Ideations, Suicidal Ideations Hematologic/ Lymphatic: Denies: Easy Bruising, Easy Bleeding VTE Information - Inpt Only VTE Present on Admission: No VTE Mechan Device Prophylaxis: SCD's VTE Pharm Prophylaxis ordered?: Yes Patient Problems: Active and Suspected Problems Acute and chronic respiratory failure with hypoxia (Acute) Subjective: Seated upright in ED bed, fatigued appearance, ongoing increased respiratory rate, accessory muscle usage, some conversational dyspnea. Objective: Physical Examination: General: awake, alert, oriented x 3 and cooperative, seated upright in the ED bed, mildly improved since initial presentation but still having increased respiratory rate, accessory muscle usage, some conversational dyspnea. Skin: normal color, turgor, no icterus, cyanosis. HEENT: AT/NC, EOMI, PERRLA, moderately dry MM, no carotid bruits or JVD noted. Lungs: Severely diminished bilaterally, and expiratory expiratory wheezing, mildly rhonchorous, increased work of breathing, some accessory muscle usage, increased respiratory rate, some conversational dyspnea. Heart: Tachycardic with regular rhythm; no gallop, rub audible. Abdomen: soft, obese, NTTP, ND, normal BS, no HSM. Extremities: no cyanosis, clubbing, or edema. Neurological: patient awake, alert, oriented x 3; cognitive function intact; pupils equally reactive to light and accomodation; cranial nerves II-XII grossly normal, moving all 4 extremities, no focal deficits, strength severely globally decreased secondary to acute presentation. Psychiatric: affect appears fatigued, ill-appearing, no acute evidence of depressive or anxiety feelings. - Physical Exam Vital Signs Temp Pulse Resp BP Pulse Ox 98.2 F 88 19 H 118/73 91 05/02/18 12:57 05/02/18 15:07 05/02/18 15:07 05/02/18 15:07 05/02/18 15:07 Oxygen Flow Rate (L/min) 6 Oxygen Delivery Method Nasal Cannula Weight: 215 lb Body Mass Index (BMI) 31.7 Laboratory Tests Past 24 Hrs 05/02/18 05/02/18 05/02/18 13:03 13:03 14:45 WBC 5.6 RBC 4.75 Hgb 16.5 Hct 50.1 MCV 105.5 H MCH 34.7 H MCHC 32.9 RDW 13.0 RDW Differential 50.7 H Plt Count 115 L MPV 11.0 Immature Gran % (Auto) 0.700 Neut % (Auto) 64.4 Lymph % (Auto) 26.5 [place] % (Auto) 8.2 Eos % (Auto) 0.0 Baso % (Auto) 0.2 Absolute Neuts (auto) 3.6 Absolute Lymphs (auto) 1.48 Total Counted Not Reportable PT 23.3 H INR 2.1 Sodium 137 Potassium 4.4 Chloride 101 Carbon Dioxide 30.0 Anion Gap 6 BUN 12 Creatinine 0.88 Estim Creat Clear Calc 89.27 Est GFR (MDRD) Af Amer 113 Est GFR (MDRD) Non-Af 93 BUN/Creatinine Ratio 13.6 Glucose 120 H Calcium 8.8 Troponin I < 0.015 Valproic Acid 05/02/18 14:45 WBC RBC Hgb Hct MCV MCH MCHC RDW RDW Differential Plt Count MPV Immature Gran % (Auto) Neut % (Auto) Lymph % (Auto) [place] % (Auto) Eos % (Auto) Baso % (Auto) Absolute Neuts (auto) Absolute Lymphs (auto) Total Counted PT INR Sodium Potassium Chloride Carbon Dioxide Anion Gap BUN Creatinine Estim Creat Clear Calc Est GFR (MDRD) Af Amer Est GFR (MDRD) Non-Af BUN/Creatinine Ratio Glucose Calcium Troponin I Valproic Acid Pending Assessment/Plan All Active Problems Acute and chronic respiratory failure with hypoxia (Acute) COPD with acute exacerbation (Acute) SIRS (systemic inflammatory response syndrome) (Acute) Weakness (Acute) Thrush (Acute) Hypokalemia (Acute) The patient is a 62 y/o M w/ PMHx: Seizure Disorder, Obesity, Chronic COPD w/ Chronic Hypoxic Respiratory Failure, History of PE/DVT, HLD, HTN who was recently discharged on 05/02/18 following evaluation and treatment for acute COPD exacerbation who notes he initially improved; however, he now returns to the [facility] ED on 05/02/18 with history of worsening dyspnea, accessory muscle usage, increased respiratory rate, audible wheezing, increased oxygenation needs with hypoxia per home health care visiting on day of ED presentation noting that he did take his antibiotic, steroid and breathing treatments as prescribed. (1) Acute on chronic COPD exacerbation w/ acute on chronic hypoxic respiratory failure: CXR w/ chronic changes, CBC on admission w/ no market WBC elevation or market shift, notable increased respiratory rate in the ED, accessory muscle usage, some conversational dyspnea, ABG requested and only noted hypoxia increasing oxygenation needed. Will admit to medical surgical floor on telemetry to be cautious, maintain on oxygen with wean as tolerated to home oxygen supplementation, continue ATC duonebs, PRN albuterol, IV methylprednisolone, HOB, IS parameters, continue patient home oral Levaquin regimen which he had been recently discharged on until completed with pending sputum cultures and respiratory viral panel requested. (2) History of DVT/PE: Continue home Coumadin regimen, INR therapeutic 2.1 upon admission. (3) Hyperlipidemia: Continue home statin regimen. (4) Hypertension: Continue home regimen including Lasix, PRN hydralazine. (5) Obesity: Weight loss and lifestyle changes encouraged. (6) Tobacco Abuse: Encouraged cessation, inpatient consultation per RT, NR if desired. (7) Seizure disorder: Continue home Depakote regimen. (8) DVT prophylaxis: SCDs, Coumadin with INR trending. (9) CODE status: Discussed CODE status at length including difference between FULL code, DNR-CCA and DNR-CC status. Following discussions about the differences in these status initially reticent about intubation however following discussion with present requested full code status. Advanced Care Planning Face to Face Time: 16 minutes. Code Visit Inpatient E&M: 00581 Init Hosp L3 Procedures: 44686 Advncd Care Plan 30 Min
[2018-05-02 15:30] LABS: Valproic Acid (Depakene) Level 100 ug/mL (50-100)
[2018-05-02 15:35] LABS: Allen Test POS; Base Excess 0 mmol/L (-2 to +2); Bicarbonate 25.1 mmol/L (22-26); Blood Gas Specimen Type ART; O2 Delivery Device Nasal Can; PO2 68 mmHG (75-100); SITE L Radial; SO2 93 % (95-99); Time Given 1525; Total Carbon Dioxide 26 mmol/L; pCO2 40.6 mmHg (35-45)
--- NOTE | 2018-05-02 15:36 | NURSING ---
209 COPD EXAC, RESP FAILURE WHITE
--- NOTE | 2018-05-02 15:41 | ED.DCSUM_ITS ---
- ER Visit Summary Date of Service: 05/02/18 Chief Complaint: Shortness of breath History of Present Illness: The patient is a 62 M presenting with shortness of breath. Patient states this started this morning. He has been very short of breath throughout the day. His home health aide came and was concerned about him and called EMS. His oxygen sat was 85% on 4 L. He is currently on prednisone. He was recently discharged from the hospital on Tuesday. Physical Examination: Vitals are stable. Patient is afebrile. 92% on 6 L. Alert mild distress. HEENT exam is unremarkable. Neck is supple. Lungs are wheezing bilaterally. Accessory muscle use Heart is regular and tachycardic Abdomen is soft nontender nondistended. Extremities are unremarkable. Skin is warm and dry. No focal neurologic deficit. Remainder of exam is unremarkable. Emergency Department Course and Treatment: EKG is sinus tachycardia rate of 107. Chest x-ray shows hyperinflation. Emphysematous changes worse in the upper lobes and more prominent on the right side. CBC normal except platelet 115. Chemistries unremarkable. INR 2.1. Troponin is negative. Valproic acid 100. Patient given albuterol, Atrovent aerosols. He is satting 93% on 6 L. Will discuss with hospitalist for admission. Disposition: Admission Impression: COPD exacerbation This note was generated with UGOBE dictation software. It may contain incorrect words, spelling, and punctuation that were not noted in review of the chart prior to signing ED Disposition - Plan for ED Patient: Referrals: Josefina Newby MD [Primary Care Provider] -
[2018-05-02 16:35] LABS: Magnesium 1.9 mg/dL (1.6-2.6)
--- NOTE | 2018-05-02 18:01 | NURSING ---
pads placed on side rails due to pt hx of epilepsy and last seizure being 2 weeks ago, pt educated about his fall risk and pressure controller light and bed alarm. Educated about cardiac/ low cholesterol diet- pt reports he is not happy about that but did eat dinner without difficulty.
[2018-05-02] MEDS: Gabapentin 300 MG Capsule PO (20:41)
[2018-05-02] MEDS: Furosemide 20 MG Tablet PO (20:42)
[2018-05-02] MEDS: guaiFENesin 600 MG Tablet PO (20:42)
[2018-05-02] MEDS: Pravastatin 40 MG Tablet PO (20:42)
[2018-05-02] MEDS: 0.9% NaCl Peripheral Flush Adult/Peds IV (20:43)
[2018-05-02] MEDS: Divalproex (ER) 500 MG Tablet 1000 MG PO (20:43)
[2018-05-02] MEDS: Varenicline 0.5 MG Tablet 1 MG PO (20:43)
[2018-05-03] VITALS (21 sets, daily range): BP systolic 108–147; BP diastolic 70–86; PULSE 73–110; RESP 12–31; TEMP 36.2–36.9; O2SAT 92–96
[2018-05-03 06:11] LABS: Absolute Lymphocyte Count 1.87 X10^3/ul (0.83-4.51); Absolute Neutrophil Count 2.9 X10^3/uL (2.0-7.7); Basophil# 0.01 X10^3/uL; Basophil% 0.2 % (0-1); Hematocrit 44.7 % (40-54); Hemoglobin 15.7 g/dl (13.0-16.5); Lymphocyte # 1.87 X10^3/ul (4.0); Lymphocyte % 35.7 % (19-41); Mean Corp Hgb Conc 35.1 g/gl (32-36); Mean Corpuscular Hgb 36.2 pg (27.0-32.0); Mean Platelet Vol. 10.7 fl (6.2-12.0); Monocyte# 0.42 X10^3/uL; Neutrophil % 55.3 % (47-70); POSITIVE COUNT NO; POSITIVE DIFFERENTIAL NO; POSITIVE MORPHOLOGY NO; Platelet Count 114 K/mm3 (150-450); RBC Distribution Width CV 12.8 % (11.6-14.6); RBC Distribution Width SD 48.5 fl (35.1-43.9); Red Blood Count 4.34 M/mm3 (4.6-6.2); White Blood Count 5.2 K/mm3 (4.4-11.0)
[2018-05-03 06:23] LABS: International Normalized Ratio 1.7; Prothrombin Time (Protime)PT. 19.8 SECONDS (11.7-14.9)
[2018-05-03 06:24] LABS: Anion Gap 9 (5-15); BUN 15 mg/dL (7-18); Calcium,Total 8.8 mg/dL (8.5-10.1); Chloride 102 mmol/L (98-107); EST Glomerular Filtration Rate 146 mL/min (>60); Est Glom Filt Rate - Afr Amer 176 mL/min (>60); Estimated Creatinine Clearance 130.93 ml/min; Glucose 138 mg/dL (74-106); Potassium 4.5 mmol/L (3.5-5.1); Sodium Level 138 mmol/L (136-145)
[2018-05-03] MEDS: Divalproex (ER) 500 MG Tablet PO ×2 (06:31→12:06)
[2018-05-03] MEDS: levoFLOXacin 500 MG Tablet PO (06:31)
[2018-05-03] MEDS: Gabapentin 300 MG Capsule PO ×3 (06:32→22:53)
[2018-05-03] MEDS: 0.9% NaCl Peripheral Flush Adult/Peds IV ×3 (06:32→14:06)
[2018-05-03] MEDS: Ipratropium/Albuterol Sulfate 3 ML AMPUL.NEB INHALATION ×4 (06:42→18:42)
[2018-05-03] MEDS: guaiFENesin 600 MG Tablet PO ×2 (09:14→22:53)
[2018-05-03] MEDS: Varenicline 0.5 MG Tablet 1 MG PO ×2 (09:14→22:53)
[2018-05-03] MEDS: Furosemide 20 MG Tablet PO ×2 (09:14→22:53)
--- NOTE | 2018-05-03 10:04 | NURSING ---
pre-void bladder scan approx 190-200ml. pt to bathroom, unable to void this is what happens at home pt back to bed- increased work of breathing due to exertion- again offered catheter to assist with voiding needs d/t breathing. pt unsteady on his feet. continues to decline optin of catheter- states he will let nurse know when he is agreeable to one. as pt rests, work of breathing subsides and pt able to speak in full sentences. pt verbalizes understanding of from this point just standing at bedside to use urinal d/t breathing and unsteady gait, pt agrees to call for assistance.
[2018-05-03] MEDS: Oseltamivir Phosphate 75 MG Capsule PO ×2 (10:07→22:56)
--- NOTE | 2018-05-03 11:58 | CT_ITS ---
STUDY: CT CHEST WITHOUT CONTRAST REASON FOR EXAM: Male, 62 years old. Shortness of breath and positive for influenza a RADIATION DOSAGE (If Supplied By Facility): CTDIvol = ( 15.24 ) mGy, DLP = ( 539.95 ) mGycm TECHNIQUE: Transaxial imaging was performed without the administration of intravenous contrast material. Individualized dose optimization techniques were used for this CT. COMPARISON: 04/29/2018 FINDINGS: Diffuse emphysema. No acute alveolar disease. There is no demonstrated pleural abnormality. Normal heart and pericardium. Normal mediastinum. Calcified right hilar lymph nodes. Normal unenhanced pulmonary arteries. Normal aorta arch and descending thoracic aorta. Normal osseous structures. There is no demonstrated abnormality of the visualized upper abdomen. CT/Chest without Contrast IMPRESSION: Diffuse emphysema. No acute alveolar disease. Electronically Signed: Trell Sal MD at 13:14 EST Tel , Service support ,
[2018-05-03] MEDS: Acetaminophen 325 MG Tablet 650 MG PO (12:06)
[2018-05-03] MEDS: Ondansetron 4 MG/2 ML Vial IV (12:12)
[2018-05-03 12:25] LABS: Allen Test POS; Base Excess 5 mmol/L (-2 to +2); Blood Gas Specimen Type ART; O2 Delivery Device Nasal Can; PO2 57 mmHG (75-100); SITE L Radial; SO2 90 % (95-99); Time Given 1205; Total Carbon Dioxide 30 mmol/L; pH 7.46 (7.35-7.45)
--- NOTE | 2018-05-03 12:25 | CASEMGMT ---
Addendum entered by Nikita Solano 05/03/18 15:52: 1300: Call placed to [facility]. They confirmed pt currently has order for O2 @ 4 L/M N/C with them. Inquired about BIPAP mask. They stated they are aware pt needs a new mask but that they are actually currently working with pt's physician on getting pt switched over to a Trilogy unit for pt instead. Call place to [facility] and referral made. Order for referral placed. Original Note: RN CM INDUSTRIAL SERVICES WORKER CM to room to meet with patient for initial transition planning/care coordination assessment. RN STUART introduced self and role at [facility]. Pt voices understanding and consents to assessment at this time. Pt resting in bed at this time. Pt is A/O at this time and answers all questions appropriately. Care providers, pharmacy, and demographics verified at this time. PCP: Keyonna Poe Pharmacy: [facility] [employer] Insurance: [facility] Prescription Benefit: Yes Living Will/HPOA: does not have LW or HCPOA. Explained to pt what these documents are for. Pt states he wishes for his significant other, Chely, to be the one to make medical decisions for him if he were unable to. Explained to pt the importance of completing POA papers. Pt states he would be willing to talk with HENRIETTA about this. HENRIETTA Martins, notified. Also provided pt with AD info packet and [employer] rac card if he decides to complete paperwork after discharge. LNOK: Pt states he does not have any children. Living Arrangements: Pt lives with his significant other, Chely Wills, and Chely's son and daughter. Pt states he was independent prior to admission. States Mo usually does the meals/cooking. States they live in a 2-story home with 3 steps to enter. Approx 10 steps between floors. Transportation: Pt states drives he does not drive. gets transportation for doctor appts through [facility]. His neighbor also helps provide transportation at times. DME: has the following DME: Tub bench/shower chair, cane, walker (does not use), O2 @ 4 L/M N/C through [employer], BIPAP, and nebulizer. Pt states the mask to the BIPAP is broken and states Dr Newby's office was working on getting him another one. Pt states he is interested in information on medical alert button. Pt given handout on local companies that provide medical alert button services. HHC/SNF: Pt states has never been to a SNF but that he has used a HHC agency in the past. He is unsure of the name of the agency. Pt wishes to return home on discharge and declines need for HHC. Discussed CCN with pt for Chronic COPD and pt states he is interested/agreeable to a referral. CM to follow for home oxygen needs and any further discharge planning/needs. Pt voices no further concerns/needs at this time. Advised pt to ask for CM if any further questions/concerns/needs arise. Voices understanding. PLAN: Home with support of significant other and discharge plans in place. Radha BAÑUELOS RN CM
--- NOTE | 2018-05-03 14:03 | PN_ITS ---
<Yves Mari - Last Filed: 05/03/18 13:53> Patient Problems: Active and Suspected Problems Acute and chronic respiratory failure with hypoxia (Acute) Subjective: When patient examined, he was tachypneic, had SOB, conversational dyspnea, and pursed lip breathing. He also had intermittent coughing bouts. He had recently received a breathing treatment. His pulse ox was dipping to about 87% and back up to low 90s during interview. He remains tachy. He also complained of subjective fevers and shaking chills. An ABG was obtained - mildly alkalotic, and BiPAP restarted - tolerated well and more relaxed. - Physical Exam General: Alert, Oriented x3, Cooperative HEENT: Atraumatic, PERRLA, EOMI, Normocephalic Neck: Supple, No JVD, Negative Carotid Bruits Lungs: Diminished - severely diminished, Wheezes Cardiovascular: Regular rate, No murmurs Abdomen: Bowel Sounds Present, Soft, Non Tender Extremities: No edema, Capillary Refill Less than 3 Seconds Skin: No rashes, No breakdown Musculoskeletal: No Tenderness to Palpation of Joints or Extremities Neurological: Cranial nerves II-XII grossly intact Psych/Mental Status: Anxious, Alert and oriented to time, place, person, mood and affect Vital Signs Temp Pulse Resp BP Pulse Ox 98.3 F 89 20 H 121/75 H 95 05/03/18 13:09 05/03/18 13:09 05/03/18 13:09 05/03/18 13:09 05/03/18 13:09 Oxygen Flow Rate (L/min) 4 Oxygen Delivery Method Bi-pap Weight: 209 lb 14.081 oz Body Mass Index (BMI) 30.9 Intake and Output for Last 24 Hours 05/01/18 05/02/18 05/03/18 23:59 23:59 23:59 Intake Total 450 / 450 410 / 410 Output Total 475 / 475 Balance 450 / 450 -65 / -65 Microbiology Past 72 Hours 05/02/18 17:30 Respiratory Panel (PCR) - Final Mucosa - Nose Influenza A (Subtype H1) Laboratory Tests Past 24 Hrs 05/02/18 05/02/18 05/02/18 13:03 13:03 13:03 WBC 5.6 RBC 4.75 Hgb 16.5 Hct 50.1 MCV 105.5 H MCH 34.7 H MCHC 32.9 RDW 13.0 RDW Differential 50.7 H Plt Count 115 L MPV 11.0 Immature Gran % (Auto) 0.700 Neut % (Auto) 64.4 Lymph % (Auto) 26.5 [place] % (Auto) 8.2 Eos % (Auto) 0.0 Baso % (Auto) 0.2 Absolute Neuts (auto) 3.6 Absolute Lymphs (auto) 1.48 Total Counted Not Reportable PT INR Specimen Type Sample Site pH Bicarbonate Actual POC Total CO2 Base Excess O2 Saturation ABG pCO2 ABG pO2 Dariusz Test O2 Delivery Device Liter Flow Blood Gas Notified Whom Blood Gas Notified Time Sodium 137 Potassium 4.4 Chloride 101 Carbon Dioxide 30.0 Anion Gap 6 BUN 12 Creatinine 0.88 Estim Creat Clear Calc 89.27 Est GFR (MDRD) Af Amer 113 Est GFR (MDRD) Non-Af 93 BUN/Creatinine Ratio 13.6 Glucose 120 H Calcium 8.8 Magnesium 1.9 Troponin I < 0.015 Valproic Acid MRSA (PCR) 05/02/18 05/02/18 05/02/18 14:45 14:45 15:30 WBC RBC Hgb Hct MCV MCH MCHC RDW RDW Differential Plt Count MPV Immature Gran % (Auto) Neut % (Auto) Lymph % (Auto) [place] % (Auto) Eos % (Auto) Baso % (Auto) Absolute Neuts (auto) Absolute Lymphs (auto) Total Counted PT 23.3 H INR 2.1 Specimen Type ART Sample Site L Radial pH 7.40 Bicarbonate Actual 25.1 POC Total CO2 26 Base Excess 0 O2 Saturation 93 L ABG pCO2 40.6 ABG pO2 68 L Dariusz Test POS O2 Delivery Device Nasal Can Liter Flow 4.0 Blood Gas Notified Whom ED MD Blood Gas Notified Time 1525 Sodium Potassium Chloride Carbon Dioxide Anion Gap BUN Creatinine Estim Creat Clear Calc Est GFR (MDRD) Af Amer Est GFR (MDRD) Non-Af BUN/Creatinine Ratio Glucose Calcium Magnesium Troponin I Valproic Acid 100 MRSA (PCR) 05/03/18 05/03/18 05/03/18 05:45 05:45 05:45 WBC 5.2 RBC 4.34 L Hgb 15.7 Hct 44.7 MCV 103.0 H MCH 36.2 H MCHC 35.1 RDW 12.8 RDW Differential 48.5 H Plt Count 114 L MPV 10.7 Immature Gran % (Auto) 0.800 Neut % (Auto) 55.3 Lymph % (Auto) 35.7 [place] % (Auto) 8.0 Eos % (Auto) 0.0 Baso % (Auto) 0.2 Absolute Neuts (auto) 2.9 Absolute Lymphs (auto) 1.87 Total Counted Not Reportable PT 19.8 H INR 1.7 Specimen Type Sample Site pH Bicarbonate Actual POC Total CO2 Base Excess O2 Saturation ABG pCO2 ABG pO2 Dariusz Test O2 Delivery Device Liter Flow Blood Gas Notified Whom Blood Gas Notified Time Sodium 138 Potassium 4.5 Chloride 102 Carbon Dioxide 27.0 Anion Gap 9 BUN 15 Creatinine 0.60 L Estim Creat Clear Calc 130.93 Est GFR (MDRD) Af Amer 176 Est GFR (MDRD) Non-Af 146 BUN/Creatinine Ratio 25.0 H Glucose 138 H Calcium 8.8 Magnesium Troponin I Valproic Acid MRSA (PCR) 05/03/18 05/03/18 12:22 Unknown WBC RBC Hgb Hct MCV MCH MCHC RDW RDW Differential Plt Count MPV Immature Gran % (Auto) Neut % (Auto) Lymph % (Auto) [place] % (Auto) Eos % (Auto) Baso % (Auto) Absolute Neuts (auto) Absolute Lymphs (auto) Total Counted PT INR Specimen Type ART Sample Site L Radial pH 7.46 H Bicarbonate Actual 29.0 H POC Total CO2 30 Base Excess 5 H O2 Saturation 90 L ABG pCO2 41.0 ABG pO2 57 L Dariusz Test POS O2 Delivery Device Nasal Can Liter Flow 4.0 Blood Gas Notified Whom [facility] MD Blood Gas Notified Time 1205 Sodium Potassium Chloride Carbon Dioxide Anion Gap BUN Creatinine Estim Creat Clear Calc Est GFR (MDRD) Af Amer Est GFR (MDRD) Non-Af BUN/Creatinine Ratio Glucose Calcium Magnesium Troponin I Valproic Acid MRSA (PCR) Pending Medical Necessity - Tobacco Use Smoking Status: Current every day smoker - Patient had previously been taking Chantix however recently started smoking approximately 4 cigarettes a day. Tobacco Use: Cigarettes Assessment/Plan All Active Problems Acute and chronic respiratory failure with hypoxia (Acute) COPD with acute exacerbation (Acute) SIRS (systemic inflammatory response syndrome) (Acute) Weakness (Acute) Thrush (Acute) Hypokalemia (Acute) 1. Acute COPD exacerbation with acute on chronic hypoxic respiratory failure - + Flu A. Tamiflu, Steroids, Aerosols. Bipap qhs and naps. CT ordered - no pneumonia, Diffuse emphysema. Levaquin DCd as he recently had a course of this. Afebrile no leukocytosis. He recently restarted smoking about 4 cigs per day. Still tachy with fluctuant sats - remain on tele for now. 2. Nicotine abuse - cessation, patch if desired. Again, recently started again. 3. Hx DVT/PE - warfarin, recently CTA negative. 4. Hx Seizures - Depakote. 5. HTN - stable. DVT ppx: warfarin. DC planning: PTOT This patient was seen by Yves Mari PA-C under the supervision of Doctor Jason. <Bean Gomez - Last Filed: 05/03/18 16:46> Subjective: Seen and examined. Patient was readmitted after discharge on 04/30/18 after severe shortness of breath, tachypnea, labored breathing from ER. He also complained of fever or chills and completed recently Levaquin. CT chest was done and shows diffuse emphysematous changes with hyperlucency - Physical Exam General: Alert, Oriented x3, Cooperative HEENT: Atraumatic, PERRLA, EOMI, Normocephalic Neck: Supple, No JVD, Negative Carotid Bruits Lungs: Diminished, Wheezes Cardiovascular: Regular rate, Normal S1, Normal S2, No murmurs Abdomen: Bowel Sounds Present, Soft, Non Tender, Non-Distended Extremities: No edema, Capillary Refill Less than 3 Seconds Skin: No rashes, No breakdown Musculoskeletal: No Tenderness to Palpation of Joints or Extremities, Arthritic Changes Neurological: Cranial nerves II-XII grossly intact, Neuro grossly intact Psych/Mental Status: Normal Affect, Appropriate Vital Signs Temp Pulse Resp BP Pulse Ox 97.9 F 85 22 H 108/70 94 05/03/18 16:11 05/03/18 16:11 05/03/18 16:11 05/03/18 16:11 05/03/18 16:11 Oxygen Flow Rate (L/min) 4 Oxygen Delivery Method Bi-pap Weight: 209 lb 14.081 oz Body Mass Index (BMI) 30.9 Intake and Output for Last 24 Hours 05/01/18 05/02/18 05/03/18 23:59 23:59 23:59 Intake Total 450 / 450 410 / 410 Output Total 775 / 775 Balance 450 / 450 -365 / -365 Microbiology Past 72 Hours 05/02/18 17:30 Respiratory Panel (PCR) - Final Mucosa - Nose Influenza A (Subtype H1) Laboratory Tests Past 24 Hrs 05/03/18 05/03/18 05/03/18 05:45 05:45 05:45 WBC 5.2 RBC 4.34 L Hgb 15.7 Hct 44.7 MCV 103.0 H MCH 36.2 H MCHC 35.1 RDW 12.8 RDW Differential 48.5 H Plt Count 114 L MPV 10.7 Immature Gran % (Auto) 0.800 Neut % (Auto) 55.3 Lymph % (Auto) 35.7 [place] % (Auto) 8.0 Eos % (Auto) 0.0 Baso % (Auto) 0.2 Absolute Neuts (auto) 2.9 Absolute Lymphs (auto) 1.87 Total Counted Not Reportable PT 19.8 H INR 1.7 Specimen Type Sample Site pH Bicarbonate Actual POC Total CO2 Base Excess O2 Saturation ABG pCO2 ABG pO2 Dariusz Test O2 Delivery Device Liter Flow Blood Gas Notified Whom Blood Gas Notified Time Sodium 138 Potassium 4.5 Chloride 102 Carbon Dioxide 27.0 Anion Gap 9 BUN 15 Creatinine 0.60 L Estim Creat Clear Calc 130.93 Est GFR (MDRD) Af Amer 176 Est GFR (MDRD) Non-Af 146 BUN/Creatinine Ratio 25.0 H Glucose 138 H Calcium 8.8 MRSA (PCR) 05/03/18 05/03/18 12:22 Unknown WBC RBC Hgb Hct MCV MCH MCHC RDW RDW Differential Plt Count MPV Immature Gran % (Auto) Neut % (Auto) Lymph % (Auto) [place] % (Auto) Eos % (Auto) Baso % (Auto) Absolute Neuts (auto) Absolute Lymphs (auto) Total Counted PT INR Specimen Type ART Sample Site L Radial pH 7.46 H Bicarbonate Actual 29.0 H POC Total CO2 30 Base Excess 5 H O2 Saturation 90 L ABG pCO2 41.0 ABG pO2 57 L Dariusz Test POS O2 Delivery Device Nasal Can Liter Flow 4.0 Blood Gas Notified Whom HOSP Blood Gas Notified Time 1205 Sodium Potassium Chloride Carbon Dioxide Anion Gap BUN Creatinine Estim Creat Clear Calc Est GFR (MDRD) Af Amer Est GFR (MDRD) Non-Af BUN/Creatinine Ratio Glucose Calcium MRSA (PCR) Negative Assessment/Plan This patient was seen in conjunction with Yves AGUILAR. I have independently interviewed and examined the patient and reviewed pertinent history, examination findings, laboratory and plan of management. I have reviewed the note and agree with the documented findings with the few additional points. In brief, patient is admitted for COPD exacerbation with acute on chronic hypoxic respiratory failure. CT chest was done and shows worsening of emphysematous changes predominantly in upper lobes on right side but no acute alveolar disease.. MRSA is negative. Influenza A subtype H1 is positive. Patient is on Tamiflu. As patient completed recently antibiotic and CT chest is negative for consolidation, no further indication of antibiotic. I have discussed my assessment with Yves AGUILAR and orders have been reviewed. Clinical Impression(s) from Imaging Studies Chest X-Ray 05/02/18 13:40 IMPRESSION: Hyperinflation. Emphysematous changes worse in the upper lobes and more prominent on the right side. Chest CT 05/03/18 11:58 IMPRESSION: Diffuse emphysema. No acute alveolar disease. E Code Visit Inpatient E&M: 28199 Subs Hosp L3
[2018-05-03 15:13] LABS: M R Staph aureus DNA By PCR Negative (Negative); Probe Check PASS; Specimen Processing Control PASS
[2018-05-03] MEDS: Tamsulosin HCl 0.4 MG Capsule PO (17:18)
[2018-05-03] MEDS: Pravastatin 40 MG Tablet PO (22:53)
[2018-05-03] MEDS: Divalproex (ER) 500 MG Tablet 1000 MG PO (22:54)
[2018-05-04] VITALS (17 sets, daily range): BP systolic 112–123; BP diastolic 60–87; PULSE 64–90; RESP 12–24; TEMP 36.3–36.6; O2SAT 85–96
[2018-05-04] MEDS: Gabapentin 300 MG Capsule PO ×3 (06:14→20:42)
[2018-05-04] MEDS: Divalproex (ER) 500 MG Tablet PO ×2 (06:14→14:11)
[2018-05-04 06:36] LABS: Absolute Lymphocyte Count 2.01 X10^3/ul (0.83-4.51); Absolute Neutrophil Count 7.1 X10^3/uL (2.0-7.7); Basophil# 0.01 X10^3/uL; Basophil% 0.1 % (0-1); Hematocrit 43.4 % (40-54); Hemoglobin 15.2 g/dl (13.0-16.5); Lymphocyte # 2.01 X10^3/ul (4.0); Lymphocyte % 20.9 % (19-41); Mean Corpuscular Hgb 35.7 pg (27.0-32.0); Mean Corpuscular Volume 101.9 fL (80-94); Mean Platelet Vol. 10.7 fl (6.2-12.0); Monocyte% 4.2 % (0-10); Neutrophil # 7.11 X10^3/uL (2.7-7.7); Neutrophil % 74.1 % (47-70); POSITIVE COUNT NO; POSITIVE DIFFERENTIAL NO; POSITIVE MORPHOLOGY NO; Platelet Count 113 K/mm3 (150-450); RBC Distribution Width CV 12.4 % (11.6-14.6); RBC Distribution Width SD 46.8 fl (35.1-43.9); Red Blood Count 4.26 M/mm3 (4.6-6.2); White Blood Count 9.6 K/mm3 (4.4-11.0)
[2018-05-04 07:05] LABS: Anion Gap 10 (5-15); BUN 20 mg/dL (7-18); BUN/Creat Ratio 32.3 RATIO (10-20); Calcium,Total 8.6 mg/dL (8.5-10.1); Chloride 100 mmol/L (98-107); Creatinine, Serum 0.62 mg/dL (0.70-1.30); EST Glomerular Filtration Rate 141 mL/min (>60); Est Glom Filt Rate - Afr Amer 170 mL/min (>60); Glucose 127 mg/dL (74-106); Potassium 4.7 mmol/L (3.5-5.1); Sodium Level 138 mmol/L (136-145)
[2018-05-04] MEDS: Ipratropium/Albuterol Sulfate 3 ML AMPUL.NEB INHALATION ×3 (07:14→18:41)
--- NOTE | 2018-05-04 08:45 | PCM.PN.HOSP ---
Patient Problems: Active and Suspected Problems Acute and chronic respiratory failure with hypoxia (Acute) Subjective: Patient is short of breath. Tachypneic and using accessory muscle. Patient is on BiPAP. No fever or chills. Vitals/I&O's: Vital Signs Temp Pulse Resp BP Pulse Ox 97.4 F L 70 16 123/74 H 94 05/04/18 03:30 05/04/18 03:30 05/04/18 03:30 05/04/18 03:30 05/04/18 03:30 Oxygen Flow Rate (L/min) 4 Oxygen Delivery Method Nasal Cannula Weight: 209 lb 14.081 oz Body Mass Index (BMI) 30.9 Intake and Output for Last 24 Hours 05/02/18 05/03/18 05/04/18 23:59 23:59 23:59 Intake Total 450 / 450 710 / 710 200 / 200 Output Total 1075 / 1075 500 / 500 Balance 450 / 450 -365 / -365 -300 / -300 Vital Signs - 24 hr Temp Pulse Resp BP Pulse Ox 05/04/18 14:07 97.7 F L 78 20 H 119/65 93 05/04/18 13:40 78 18 90 05/04/18 13:29 75 05/04/18 10:48 82 24 H 05/04/18 09:56 87 05/04/18 09:53 97.4 F L 90 22 H 122/87 H 96 05/04/18 07:14 71 18 85 05/04/18 03:30 97.4 F L 70 16 123/74 H 94 05/04/18 03:06 70 17 91 05/04/18 01:47 64 05/04/18 00:53 69 18 93 05/03/18 22:28 84 19 H 93 05/03/18 21:30 98 F 76 16 113/74 95 05/03/18 20:06 86 28 H 93 05/03/18 18:56 80 05/03/18 18:41 88 31 H 95 05/03/18 16:11 97.9 F 85 22 H 108/70 94 05/03/18 15:43 84 23 H 93 Prescriptions This Visit Medication Instructions Recorded Divalproex Sodium [Depakote ER] 1,000 mg PO QHS 05/02/18 Divalproex Sodium [Depakote ER] 500 mg PO 0700,1300 02/26/19 Guaifenesin [Mucinex] 600 mg PO BID 05/02/18 Levofloxacin [Levaquin] 500 mg PO DAILY 05/02/18 Mometasone/Formoterol [Dulera 200 2 puff INHALATION BID 05/02/18 Mcg/5 Mcg Inhaler] Pravastatin Sodium 40 mg PO QHS 05/02/18 Medications Added to Medication List This Visit Category Date Time Status Ensure Enlive Med 05/04/18 14:00 Active 120 ml PO 4X/DAY General: Alert, Oriented x3, Cooperative HEENT: Atraumatic, PERRLA, EOMI, Normocephalic Neck: Supple, No JVD, Negative Carotid Bruits Lungs: Diminished - Air entry severely diminished in all lung hudson, Rhonchi, Short of Breath, Tachypneic, Using Accessory Muscles, - - On BiPAP Cardiovascular: Regular rate, Regular Rhythm, Normal S1, Normal S2, No murmurs Abdomen: Bowel Sounds Present, Soft, Non Tender, Non-Distended Extremities: No edema, Capillary Refill Less than 3 Seconds Skin: No rashes, No breakdown Musculoskeletal: No Tenderness to Palpation of Joints or Extremities, Arthritic Changes, Muscle Wasting Lymphatic: No Cervical, Supraclavicular, or Inguinal Adenopathy Neurological: Cranial nerves II-XII grossly intact, Neuro grossly intact Psych/Mental Status: Normal Affect, Appropriate Microbiology Past 72 Hours 05/02/18 17:30 Mucosa - Nose Respiratory Panel (PCR) - Final Influenza A (Subtype H1) Laboratory Results 05/03/18 12:22: Specimen Type ART, Sample Site L Radial, pH 7.46 H, Bicarbonate Actual 29.0 H, POC Total CO2 30, Base Excess 5 H, O2 Saturation 90 L, ABG pCO2 41.0, ABG pO2 57 L, Dariusz Test POS, O2 Delivery Device Nasal Can, Liter Flow 4.0, Blood Gas Notified Whom HOSP , Blood Gas Notified Time 1205 05/03/18 : MRSA (PCR) Negative 05/04/18 06:20: WBC 9.6, RBC 4.26 L, Hgb 15.2, Hct 43.4, MCV 101.9 H, MCH 35.7 H, MCHC 35.0, RDW 12.4, RDW Differential 46.8 H, Plt Count 113 L, MPV 10.7, Immature Gran % (Auto) 0.700, Neut % (Auto) 74.1 H, Lymph % (Auto) 20.9, [place] % (Auto) 4.2, Eos % (Auto) 0.0, Baso % (Auto) 0.1, Absolute Neuts (auto) 7.1, Absolute Lymphs (auto) 2.01, Total Counted Not Reportable 05/04/18 06:20: Sodium 138, Potassium 4.7, Chloride 100, Carbon Dioxide 28.0, Anion Gap 10, BUN 20 H, Creatinine 0.62 L, Estim Creat Clear Calc 126.70, Est GFR (MDRD) Af Amer 170, Est GFR (MDRD) Non-Af 141, BUN/Creatinine Ratio 32.3 H, Glucose 127 H, Calcium 8.6 Current Medications Acetaminophen (Tylenol) 650 mg PO Q6H PRN PRN PRN Reason: Non-cardiac pain (mod-severe) Last Admin: 05/03/18 12:06 Dose: 650 mg Al Hydroxide/Mg Hydroxide (Mylanta Ii) 30 ml PO Q6H PRN PRN PRN Reason: Gastric burning Albuterol Sulfate (Ventolin Aerosols) 2.5 mg INHALATION Q2H PRN PRN PRN Reason: SHORTNESS OF BREATH Albuterol/Ipratropium (Duoneb) 3 ml INHALATION Q4HWA.RT REPLACED BY [facility] Last Admin: 05/04/18 07:14 Dose: 3 ml Divalproex Sodium (Depakote Er) 1,000 mg PO QHS REPLACED BY [facility] Last Admin: 05/03/18 22:54 Dose: 1,000 mg Divalproex Sodium (Depakote Er) 500 mg PO BID@0700,1300 REPLACED BY [facility] Last Admin: 05/04/18 06:14 Dose: 500 mg Furosemide (Lasix) 20 mg PO BID REPLACED BY [facility] Last Admin: 05/03/18 22:53 Dose: 20 mg Gabapentin (Neurontin) 300 mg PO TID REPLACED BY [facility] Last Admin: 05/04/18 06:14 Dose: 300 mg Guaifenesin (Mucinex) 600 mg PO BID REPLACED BY [facility] Last Admin: 05/03/18 22:53 Dose: 600 mg Hydralazine HCl (Apresoline Iv) 10 mg IV Q4H PRN PRN PRN Reason: SBP > 160 Magnesium Hydroxide (Milk Of Magnesia) 30 ml PO DAILY PRN PRN PRN Reason: Constipation Methylprednisolone (Solu-Medrol) 40 mg IV Q8 REPLACED BY [facility] Last Admin: 05/04/18 06:14 Dose: 40 mg Nitroglycerin (Nitrostat) 0.4 mg SUBLINGUAL Q5M PRN PRN Reason: Chest Pain Ondansetron HCl (Zofran) 4 mg IV Q8H PRN PRN PRN Reason: NAUSEA/VOMITING Last Admin: 05/03/18 12:12 Dose: 4 mg Oseltamivir Phosphate (Tamiflu) 75 mg PO BID REPLACED BY [facility] Stop: 05/07/18 22:01 Last Admin: 05/03/18 22:56 Dose: 75 mg Potassium Chloride (K-Dur) 10 meq PO TID REPLACED BY [facility] Last Admin: 05/04/18 06:13 Dose: 10 meq Pravastatin Sodium (Pravachol) 40 mg PO QHS REPLACED BY [facility] Last Admin: 05/03/18 22:53 Dose: 40 mg Sodium Chloride () 5 - 15 ml IV UD PRN PRN Reason: SALINE FLUSH Last Admin: 05/03/18 14:06 Dose: 10 ml Tamsulosin HCl (Flomax) 0.4 mg PO DAILY@1730 REPLACED BY [facility] Last Admin: 05/03/18 17:18 Dose: 0.4 mg Varenicline (Chantix) 1 mg PO BID REPLACED BY [facility] Last Admin: 05/03/18 22:53 Dose: 1 mg Warfarin Sodium (Coumadin (Pbkc)) 5 mg PO DAILY@1700 REPLACED BY [facility] Last Admin: 05/03/18 17:18 Dose: 5 mg Medical Necessity - Tobacco Use Smoking Status: Current every day smoker - Patient had previously been taking Chantix however recently started smoking approximately 4 cigarettes a day. Tobacco Use: Cigarettes Assessment/Plan All Active Problems Acute and chronic respiratory failure with hypoxia (Acute) COPD with acute exacerbation (Acute) SIRS (systemic inflammatory response syndrome) (Acute) Weakness (Acute) Thrush (Acute) Hypokalemia (Acute) The patient is 62-year-old male with history of chronic active smoker admitted for COPD exacerbation with acute on chronic hypoxic respiratory failure. CT chest was done and shows worsening of emphysematous changes predominantly in upper lobes on right side but no acute alveolar disease.. MRSA is negative. 1. Acute COPD exacerbation with acute on chronic hypoxic respiratory failure; probably from viral influenza A bronchitis:- Influenza A subtype H1 is positive. Patient is on Tamiflu. patient completed recently antibiotic and CT chest is negative for consolidation, no further indication of antibiotic. Continue steroids, Aerosols. Bipap qhs and naps. Afebrile no leukocytosis. He recently restarted smoking about 4 cigs per day. On BiPAP support 2. Nicotine abuse - cessation, patch if desired. Again, recently started again. 3. Hx DVT/PE - warfarin, recently CTA negative. 4. Hx Seizures - Depakote. 5. HTN - stable. DVT ppx: warfarin. Clinical Impression(s) from Imaging Studies Chest X-Ray 05/02/18 13:40 IMPRESSION: Hyperinflation. Emphysematous changes worse in the upper lobes and more prominent on the right side. Chest CT 05/03/18 11:58 IMPRESSION: Diffuse emphysema. No acute alveolar disease. E Code Visit Inpatient E&M: 54885 Subs Hosp L3
[2018-05-04] MEDS: Furosemide 20 MG Tablet PO ×2 (09:55→20:42)
[2018-05-04] MEDS: guaiFENesin 600 MG Tablet PO ×2 (09:55→20:42)
[2018-05-04] MEDS: Oseltamivir Phosphate 75 MG Capsule PO ×2 (09:55→20:41)
[2018-05-04] MEDS: Varenicline 0.5 MG Tablet 1 MG PO ×2 (09:55→20:42)
--- NOTE | 2018-05-04 10:10 | CASEMGMT ---
Addendum entered by Lakshmi Stewart 05/04/18 12:44: Pt is off bipap and awake. SW spoke w/pt about completing LW/POA forms, pt is not up for it at this time but is agreeable to talk about it again tomorrow. SW will follow up w/pt tomorrow. ERICKA Easton, SOCIAL SERVICE WORKER Original Note: Pt had indicated yesterday he would be interested in completing LW/POA forms. However, pt is resting at present w/bi-pap on. SW will check back in w/pt later today regarding LW/POA forms as time allows, or will speak w/pt tomorrow. ERICKA Easton, SOCIAL SERVICE WORKER
--- NOTE | 2018-05-04 13:55 | CPS ---
at 1000, RN reported placing patient on BiPAP.
[2018-05-04] MEDS: 0.9% NaCl Peripheral Flush Adult/Peds IV (14:11)
--- NOTE | 2018-05-04 15:37 | CPS ---
Patient complaining of SOB at this time, PEP therapy not done.
[2018-05-04] MEDS: Tamsulosin HCl 0.4 MG Capsule PO (17:45)
[2018-05-04] MEDS: Divalproex (ER) 500 MG Tablet 1000 MG PO (20:41)
[2018-05-04] MEDS: Pravastatin 40 MG Tablet PO (20:41)
[2018-05-05] VITALS (18 sets, daily range): BP systolic 103–124; BP diastolic 67–75; PULSE 73–108; RESP 12–26; TEMP 36.6–36.9; O2SAT 89–96
[2018-05-05] MEDS: Divalproex (ER) 500 MG Tablet PO ×2 (06:21→14:04)
[2018-05-05] MEDS: Gabapentin 300 MG Capsule PO ×3 (06:21→20:26)
[2018-05-05] MEDS: Ipratropium/Albuterol Sulfate 3 ML AMPUL.NEB INHALATION ×4 (07:32→20:21)
[2018-05-05] MEDS: guaiFENesin 600 MG Tablet PO ×2 (10:56→20:25)
[2018-05-05] MEDS: Varenicline 0.5 MG Tablet 1 MG PO ×2 (10:56→20:24)
[2018-05-05] MEDS: Oseltamivir Phosphate 75 MG Capsule PO ×2 (10:57→20:26)
[2018-05-05] MEDS: Furosemide 20 MG Tablet PO ×2 (10:57→20:25)
--- NOTE | 2018-05-05 11:50 | CASEMGMT ---
Addendum entered by Nikita Solano 05/06/18 16:13: 05/05/18: Pt requesting to talk with bookseamer blindstitch about questions he has re: diet order/restrictions and what foods he should/shouldn't eat when he returns home. Call placed to bookseamer blindstitch and referral made. She states she will come to floor to talk with pt. Original Note: RANDY DAVIDSON NOTE: *Per Dr Gomez, he anticipates that pt may be ready for discharge Tuesday05-07-18. *PT/OT evals reviewed. RANDY DAVIDSON to room to talk with pt. Pt sitting up in chair beside bed. Discussed HHC with pt. Pt states he would like HHC, and states no preference of HHC agency. *Call placed to [facility] @ [phone] and spoke with Hanane. She states they are in Network with [facility]. Referral faxed to her @ [phone] for Detention, and PT/OT. *Hanane returned call and states they are able to accept pt. Hanane was made aware that [facility] referrral was made prior to setting up [facility]. RANDY DAVIDSON asked Hanane if someone from [facility] could contact [facility] once pt discharged from [facility]. [facility] contact information provided. *If pt is discharged Tuesday, start of care will be Tuesday05-08-18. Green sheet placed on chart. *Call placed to [facility] and she was made aware plans are for pt to receive [facility] services upon discharge. Radha BAÑUELOS RN, CM
--- NOTE | 2018-05-05 13:36 | CASEMGMT ---
SW assisted pt in completing LW/POA forms. SW gave pt originals and copies, and placed a copy on the chart. Pt named Chely Wills as POA. ERICKA Easton, WINDOWS SYSTEMS ADMINISTRATOR
--- NOTE | 2018-05-05 13:56 | PCM.PN.HOSP ---
Patient Problems: Active and Suspected Problems Acute and chronic respiratory failure with hypoxia (Acute) Subjective: Patient still gets very short of breath even on going to bathroom. Has cough able to bring up some phlegm. Still on BiPAP intermittently. Tachypneic and hypoxic. Vitals/I&O's: Vital Signs Temp Pulse Resp BP Pulse Ox 98.4 F 104 H 22 H 124/72 H 92 05/05/18 11:45 05/05/18 11:54 05/05/18 11:45 05/05/18 11:45 05/05/18 11:45 Oxygen Flow Rate (L/min) 5 Oxygen Delivery Method Nasal Cannula Weight: 209 lb 14.081 oz Body Mass Index (BMI) 30.9 Intake and Output for Last 24 Hours 05/03/18 05/04/18 05/05/18 23:59 23:59 23:59 Intake Total 710 / 710 560 / 560 400 / 400 Output Total 1075 / 1075 1025 / 1025 800 / 800 Balance -365 / -365 -465 / -465 -400 / -400 General: Alert, Oriented x3, Cooperative HEENT: Atraumatic, PERRLA, EOMI, Normocephalic Neck: Supple, No JVD, Negative Carotid Bruits Lungs: Diminished, Rhonchi, Short of Breath, Tachypneic, Using Accessory Muscles, Wheezes Cardiovascular: Regular rate, Regular Rhythm, Normal S1, Normal S2, No murmurs Abdomen: Bowel Sounds Present, Soft, Non Tender Extremities: No edema, Capillary Refill Less than 3 Seconds Skin: No rashes, No breakdown Musculoskeletal: No Tenderness to Palpation of Joints or Extremities, Arthritic Changes, Muscle Wasting Neurological: Cranial nerves II-XII grossly intact Psych/Mental Status: Normal Affect, Appropriate Microbiology Past 72 Hours 05/02/18 17:30 Mucosa - Nose Respiratory Panel (PCR) - Final Influenza A (Subtype H1) Current Medications Acetaminophen (Tylenol) 650 mg PO Q6H PRN PRN PRN Reason: Non-cardiac pain (mod-severe) Last Admin: 05/03/18 12:06 Dose: 650 mg Al Hydroxide/Mg Hydroxide (Mylanta Ii) 30 ml PO Q6H PRN PRN PRN Reason: Gastric burning Albuterol Sulfate (Ventolin Aerosols) 2.5 mg INHALATION Q2H PRN PRN PRN Reason: SHORTNESS OF BREATH Albuterol/Ipratropium (Duoneb) 3 ml INHALATION Q4HWA.RT [facility] Last Admin: 05/05/18 11:53 Dose: 3 ml Divalproex Sodium (Depakote Er) 1,000 mg PO QHS [facility] Last Admin: 05/04/18 20:41 Dose: 1,000 mg Divalproex Sodium (Depakote Er) 500 mg PO BID@0700,1300 [facility] Last Admin: 05/05/18 06:21 Dose: 500 mg Furosemide (Lasix) 20 mg PO BID [facility] Last Admin: 05/05/18 10:57 Dose: 20 mg Gabapentin (Neurontin) 300 mg PO TID [facility] Last Admin: 05/05/18 06:21 Dose: 300 mg Guaifenesin (Mucinex) 600 mg PO BID [facility] Last Admin: 05/05/18 10:56 Dose: 600 mg Hydralazine HCl (Apresoline Iv) 10 mg IV Q4H PRN PRN PRN Reason: SBP > 160 Magnesium Hydroxide (Milk Of Magnesia) 30 ml PO DAILY PRN PRN PRN Reason: Constipation Methylprednisolone (Solu-Medrol) 40 mg IV Q8 [facility] Last Admin: 05/05/18 06:21 Dose: 40 mg Nitroglycerin (Nitrostat) 0.4 mg SUBLINGUAL Q5M PRN PRN Reason: Chest Pain Nutritional Formula (Lactose Free) (Ensure Enlive) 120 ml PO 4X/DAY [facility] Last Admin: 05/05/18 10:57 Dose: 120 ml Ondansetron HCl (Zofran) 4 mg IV Q8H PRN PRN PRN Reason: NAUSEA/VOMITING Last Admin: 05/03/18 12:12 Dose: 4 mg Oseltamivir Phosphate (Tamiflu) 75 mg PO BID [facility] Stop: 05/07/18 22:01 Last Admin: 05/05/18 10:57 Dose: 75 mg Potassium Chloride (K-Dur) 10 meq PO TID [facility] Last Admin: 05/05/18 06:21 Dose: 10 meq Pravastatin Sodium (Pravachol) 40 mg PO QHS [facility] Last Admin: 05/04/18 20:41 Dose: 40 mg Sodium Chloride () 5 - 15 ml IV UD PRN PRN Reason: SALINE FLUSH Last Admin: 05/04/18 14:11 Dose: 10 ml Tamsulosin HCl (Flomax) 0.4 mg PO DAILY@1730 [facility] Last Admin: 05/04/18 17:45 Dose: 0.4 mg Varenicline (Chantix) 1 mg PO BID [facility] Last Admin: 05/05/18 10:56 Dose: 1 mg Warfarin Sodium (Coumadin (Pbkc)) 5 mg PO DAILY@1700 [facility] Last Admin: 05/04/18 17:45 Dose: 5 mg Medical Necessity - Tobacco Use Smoking Status: Current every day smoker - Patient had previously been taking Chantix however recently started smoking approximately 4 cigarettes a day. Tobacco Use: Cigarettes Assessment/Plan All Active Problems Acute and chronic respiratory failure with hypoxia (Acute) COPD with acute exacerbation (Acute) SIRS (systemic inflammatory response syndrome) (Acute) Weakness (Acute) Thrush (Acute) Hypokalemia (Acute) The patient is 62-year-old male with history of chronic active smoker admitted for COPD exacerbation with acute on chronic hypoxic respiratory failure. CT chest was done and shows worsening of emphysematous changes predominantly in upper lobes on right side but no acute alveolar disease.. MRSA is negative. 1. Acute COPD exacerbation with acute on chronic hypoxic respiratory failure; probably from viral influenza A bronchitis; with history of advanced COPD:- Influenza A subtype H1 is positive. Patient is on Tamiflu. patient completed recently antibiotic and CT chest is negative for consolidation, no further indication of antibiotic. Continue steroids, Aerosols. Bipap qhs and naps. Afebrile no leukocytosis. He recently restarted smoking about 4 cigs per day. On BiPAP support. Sputum culture is ordered. MRSA nasal screen negative. No PFT in our EMR system 2. Nicotine abuse - cessation, patch if desired. Again, recently started again. 3. Hx DVT/PE - warfarin, recently CTA negative. 4. Hx Seizures - Depakote. 5. HTN - stable. DVT ppx: warfarin. Clinical Impression(s) from Imaging Studies Chest X-Ray 05/02/18 13:40 IMPRESSION: Hyperinflation. Emphysematous changes worse in the upper lobes and more prominent on the right side. Chest CT 05/03/18 11:58 IMPRESSION: Diffuse emphysema. No acute alveolar disease. Microbiology Past 72 Hours 05/02/18 17:30 Mucosa - Nose Respiratory Panel (PCR) - Final Influenza A (Subtype H1) Code Visit Inpatient E&M: 79424 Subs Hosp L3
--- NOTE | 2018-05-05 14:00 | PN_ITS ---
Patient Problems: Active and Suspected Problems Acute and chronic respiratory failure with hypoxia (Acute) Subjective: Patient still gets very short of breath even on going to bathroom. Has cough able to bring up some phlegm. Still on BiPAP intermittently. Tachypneic and hypoxic. Vitals/I&O's: Vital Signs Temp Pulse Resp BP Pulse Ox 98.4 F 104 H 22 H 124/72 H 92 05/05/18 11:45 05/05/18 11:54 05/05/18 11:45 05/05/18 11:45 05/05/18 11:45 Oxygen Flow Rate (L/min) 5 Oxygen Delivery Method Nasal Cannula Weight: 209 lb 14.081 oz Body Mass Index (BMI) 30.9 Intake and Output for Last 24 Hours 05/03/18 05/04/18 05/05/18 23:59 23:59 23:59 Intake Total 710 / 710 560 / 560 400 / 400 Output Total 1075 / 1075 1025 / 1025 800 / 800 Balance -365 / -365 -465 / -465 -400 / -400 General: Alert, Oriented x3, Cooperative HEENT: Atraumatic, PERRLA, EOMI, Normocephalic Neck: Supple, No JVD, Negative Carotid Bruits Lungs: Diminished, Rhonchi, Short of Breath, Tachypneic, Using Accessory Muscles, Wheezes Cardiovascular: Regular rate, Regular Rhythm, Normal S1, Normal S2, No murmurs Abdomen: Bowel Sounds Present, Soft, Non Tender Extremities: No edema, Capillary Refill Less than 3 Seconds Skin: No rashes, No breakdown Musculoskeletal: No Tenderness to Palpation of Joints or Extremities, Arthritic Changes, Muscle Wasting Neurological: Cranial nerves II-XII grossly intact Psych/Mental Status: Normal Affect, Appropriate Microbiology Past 72 Hours 05/02/18 17:30 Mucosa - Nose Respiratory Panel (PCR) - Final Influenza A (Subtype H1) Current Medications Acetaminophen (Tylenol) 650 mg PO Q6H PRN PRN PRN Reason: Non-cardiac pain (mod-severe) Last Admin: 05/03/18 12:06 Dose: 650 mg Al Hydroxide/Mg Hydroxide (Mylanta Ii) 30 ml PO Q6H PRN PRN PRN Reason: Gastric burning Albuterol Sulfate (Ventolin Aerosols) 2.5 mg INHALATION Q2H PRN PRN PRN Reason: SHORTNESS OF BREATH Albuterol/Ipratropium (Duoneb) 3 ml INHALATION Q4HWA.RT [facility] Last Admin: 05/05/18 11:53 Dose: 3 ml Divalproex Sodium (Depakote Er) 1,000 mg PO QHS [facility] Last Admin: 05/04/18 20:41 Dose: 1,000 mg Divalproex Sodium (Depakote Er) 500 mg PO BID@0700,1300 [facility] Last Admin: 05/05/18 06:21 Dose: 500 mg Furosemide (Lasix) 20 mg PO BID [facility] Last Admin: 05/05/18 10:57 Dose: 20 mg Gabapentin (Neurontin) 300 mg PO TID [facility] Last Admin: 05/05/18 06:21 Dose: 300 mg Guaifenesin (Mucinex) 600 mg PO BID [facility] Last Admin: 05/05/18 10:56 Dose: 600 mg Hydralazine HCl (Apresoline Iv) 10 mg IV Q4H PRN PRN PRN Reason: SBP > 160 Magnesium Hydroxide (Milk Of Magnesia) 30 ml PO DAILY PRN PRN PRN Reason: Constipation Methylprednisolone (Solu-Medrol) 40 mg IV Q8 [facility] Last Admin: 05/05/18 06:21 Dose: 40 mg Nitroglycerin (Nitrostat) 0.4 mg SUBLINGUAL Q5M PRN PRN Reason: Chest Pain Nutritional Formula (Lactose Free) (Ensure Enlive) 120 ml PO 4X/DAY [facility] Last Admin: 05/05/18 10:57 Dose: 120 ml Ondansetron HCl (Zofran) 4 mg IV Q8H PRN PRN PRN Reason: NAUSEA/VOMITING Last Admin: 05/03/18 12:12 Dose: 4 mg Oseltamivir Phosphate (Tamiflu) 75 mg PO BID [facility] Stop: 05/07/18 22:01 Last Admin: 05/05/18 10:57 Dose: 75 mg Potassium Chloride (K-Dur) 10 meq PO TID [facility] Last Admin: 05/05/18 06:21 Dose: 10 meq Pravastatin Sodium (Pravachol) 40 mg PO QHS [facility] Last Admin: 05/04/18 20:41 Dose: 40 mg Sodium Chloride () 5 - 15 ml IV UD PRN PRN Reason: SALINE FLUSH Last Admin: 05/04/18 14:11 Dose: 10 ml Tamsulosin HCl (Flomax) 0.4 mg PO DAILY@1730 [facility] Last Admin: 05/04/18 17:45 Dose: 0.4 mg Varenicline (Chantix) 1 mg PO BID [facility] Last Admin: 05/05/18 10:56 Dose: 1 mg Warfarin Sodium (Coumadin (Pbkc)) 5 mg PO DAILY@1700 [facility] Last Admin: 05/04/18 17:45 Dose: 5 mg Medical Necessity - Tobacco Use Smoking Status: Current every day smoker - Patient had previously been taking Chantix however recently started smoking approximately 4 cigarettes a day. Tobacco Use: Cigarettes Assessment/Plan All Active Problems Acute and chronic respiratory failure with hypoxia (Acute) COPD with acute exacerbation (Acute) SIRS (systemic inflammatory response syndrome) (Acute) Weakness (Acute) Thrush (Acute) Hypokalemia (Acute) The patient is 62-year-old male with history of chronic active smoker admitted for COPD exacerbation with acute on chronic hypoxic respiratory failure. CT chest was done and shows worsening of emphysematous changes predominantly in upper lobes on right side but no acute alveolar disease.. MRSA is negative. 1. Acute COPD exacerbation with acute on chronic hypoxic respiratory failure; probably from viral influenza A bronchitis; with history of advanced COPD:- Influenza A subtype H1 is positive. Patient is on Tamiflu. patient completed recently antibiotic and CT chest is negative for consolidation, no further indication of antibiotic. Continue steroids, Aerosols. Bipap qhs and naps. Afebrile no leukocytosis. He recently restarted smoking about 4 cigs per day. On BiPAP support. Sputum culture is ordered. MRSA nasal screen negative. No PFT in our EMR system 2. Nicotine abuse - cessation, patch if desired. Again, recently started again. 3. Hx DVT/PE - warfarin, recently CTA negative. 4. Hx Seizures - Depakote. 5. HTN - stable. DVT ppx: warfarin. Clinical Impression(s) from Imaging Studies Chest X-Ray 05/02/18 13:40 IMPRESSION: Hyperinflation. Emphysematous changes worse in the upper lobes and more prominent on the right side. Chest CT 05/03/18 11:58 IMPRESSION: Diffuse emphysema. No acute alveolar disease. Microbiology Past 72 Hours 05/02/18 17:30 Mucosa - Nose Respiratory Panel (PCR) - Final Influenza A (Subtype H1) Code Visit Inpatient E&M: 80160 Subs Hosp L3
[2018-05-05] MEDS: 0.9% NaCl Peripheral Flush Adult/Peds IV ×2 (14:03→20:26)
--- NOTE | 2018-05-05 14:32 | CASEMGMT ---
Addendum entered by Nikita Solano 05/05/18 14:41: Isadora's number is: [phone]. Original Note: RANDY DAVIDSON NOTE: VM message received from STUART Muir from [facility], inquiring about discharge plans. Call returned to Isadora and message left on her confidential VM informing her that pt may be discharged over the weekend, possibly Tuesday, and [facility]. She was also made aware that RANDY Catherine CM, will be CM for pt on Tuesday and her contact number was provided. Radha BAÑUELOS RN, CM
--- NOTE | 2018-05-05 14:50 | CASEMGMT ---
RANDY DAVIDSON NOTE: *Pt had previously stated he needs a new BIPAP mask at home. Pt clarifies at this time that his mask is usable but that it is getting old and that he would like a new one. Had pt look at the BIPAP mask/hose attachement that he has been been using while @ [facility] and pt states that it would fit/looks to be compatible with his home unit. Advised pt to take this BIPAP mask home with him on discharge. RNTiffanie, made aware that the BIPAP mask pt is using @ [facility] needs to be sent home with pt on discharge and asked her to pass this information along on the handoff. *Call placed to [facility]. They feel pt would benefit from Trilogy/Non-invasive breathing unit @ home. They state they were initially working on this with Rupal Sanders/JEFF for Dr Van, pt's pulmonoligst and that pt would need to be seen by broke worker after discharge. Discussed this with pt and he was made aware. Advised pt to follow-up with his broke worker, re: same. Pt states he had an apppt with Dr Van but that he had to cancel it d/t illness/coming to the hospital. Pt states he will make follow-up appt with Dr Van after he is discharged. *Call placed to Dr Van's office. They were made aware of [facility] recommendations for Trilogy unit and that pt plans to make follow-up appt after he is discharged. Radha BAÑUELOS RN, CM
--- NOTE | 2018-05-05 15:54 | NURSING ---
VSA overide by Dr. Gomez d/t COPD. VS obtained, will get again in 4hrs. No distress noted.
[2018-05-05] MEDS: Tamsulosin HCl 0.4 MG Capsule PO (18:02)
[2018-05-05] MEDS: Divalproex (ER) 500 MG Tablet 1000 MG PO (20:24)
[2018-05-05] MEDS: Pravastatin 40 MG Tablet PO (20:25)
[2018-05-06] VITALS (19 sets, daily range): BP systolic 102–132; BP diastolic 64–69; PULSE 60–86; RESP 12–24; TEMP 36.6–36.9; O2SAT 90–94
[2018-05-06] MEDS: Gabapentin 300 MG Capsule PO ×3 (06:02→20:53)
[2018-05-06] MEDS: Divalproex (ER) 500 MG Tablet PO ×2 (06:02→11:28)
[2018-05-06] MEDS: 0.9% NaCl Peripheral Flush Adult/Peds IV ×3 (06:03→23:38)
[2018-05-06] MEDS: Ipratropium/Albuterol Sulfate 3 ML AMPUL.NEB INHALATION ×4 (07:31→18:36)
[2018-05-06] MEDS: Varenicline 1 MG Tablet PO ×2 (08:55→20:57)
[2018-05-06] MEDS: Oseltamivir Phosphate 75 MG Capsule PO ×2 (08:55→20:53)
[2018-05-06] MEDS: Furosemide 20 MG Tablet PO ×2 (08:55→20:54)
[2018-05-06] MEDS: guaiFENesin 600 MG Tablet PO (08:55)
--- NOTE | 2018-05-06 11:02 | PCM.PN.HOSP ---
Patient Problems: Active and Suspected Problems Acute and chronic respiratory failure with hypoxia (Acute) Subjective: Patient is still short of breath. Does not feel improvement in breathing. Repeat chest x-ray PA lateral ordered. On BiPAP. Patient had 2 loose bowel movements in the morning no blood but mucousy. No fever or chills. No tachycardia. Respiratory rate 18 -22/min; pulse ox 92% 5 L of oxygen for last 3 days Vitals/I&O's: Vital Signs Temp Pulse Resp BP Pulse Ox 97.9 F 82 22 H 132/65 H 90 05/06/18 07:20 05/06/18 07:31 05/06/18 08:00 05/06/18 07:20 05/06/18 07:31 Oxygen Flow Rate (L/min) 5 Oxygen Delivery Method Nasal Cannula Weight: 209 lb 14.081 oz Body Mass Index (BMI) 30.9 Intake and Output for Last 24 Hours 05/04/18 05/05/18 05/06/18 23:59 23:59 23:59 Intake Total 560 / 560 640 / 640 Output Total 1025 / 1025 1100 / 1100 675 / 675 Balance -465 / -465 -460 / -460 -675 / -675 General: Alert, Oriented x3, Cooperative HEENT: Atraumatic, PERRLA, EOMI, Normocephalic Neck: Supple, No JVD, Negative Carotid Bruits Lungs: Clear to auscultation, Normal air movement Cardiovascular: Regular rate, No murmurs Abdomen: Bowel Sounds Present, Soft, Non Tender Extremities: No edema, Capillary Refill Less than 3 Seconds Skin: No rashes, No breakdown Musculoskeletal: No Tenderness to Palpation of Joints or Extremities Neurological: Cranial nerves II-XII grossly intact Psych/Mental Status: Normal Affect, Appropriate Microbiology Past 72 Hours 05/02/18 17:30 Mucosa - Nose Respiratory Panel (PCR) - Final Influenza A (Subtype H1) Current Medications Acetaminophen (Tylenol) 650 mg PO Q6H PRN PRN PRN Reason: Non-cardiac pain (mod-severe) Last Admin: 05/03/18 12:06 Dose: 650 mg Al Hydroxide/Mg Hydroxide (Mylanta Ii) 30 ml PO Q6H PRN PRN PRN Reason: Gastric burning Albuterol Sulfate (Ventolin Aerosols) 2.5 mg INHALATION Q2H PRN PRN PRN Reason: SHORTNESS OF BREATH Albuterol/Ipratropium (Duoneb) 3 ml INHALATION Q4HWA.RT [facility] Last Admin: 05/06/18 07:31 Dose: 3 ml Divalproex Sodium (Depakote Er) 1,000 mg PO QHS [facility] Last Admin: 05/05/18 20:24 Dose: 1,000 mg Divalproex Sodium (Depakote Er) 500 mg PO BID@0700,1300 [facility] Last Admin: 05/06/18 06:02 Dose: 500 mg Furosemide (Lasix) 20 mg PO BID [facility] Last Admin: 05/06/18 08:55 Dose: 20 mg Gabapentin (Neurontin) 300 mg PO TID [facility] Last Admin: 05/06/18 06:02 Dose: 300 mg Guaifenesin (Mucinex) 1,200 mg PO BID [facility] Hydralazine HCl (Apresoline Iv) 10 mg IV Q4H PRN PRN PRN Reason: SBP > 160 Magnesium Hydroxide (Milk Of Magnesia) 30 ml PO DAILY PRN PRN PRN Reason: Constipation Methylprednisolone (Solu-Medrol) 40 mg IV Q6 [facility] Nitroglycerin (Nitrostat) 0.4 mg SUBLINGUAL Q5M PRN PRN Reason: Chest Pain Nutritional Formula (Lactose Free) (Ensure Enlive) 120 ml PO 4X/DAY [facility] Last Admin: 05/06/18 08:55 Dose: Not Given Ondansetron HCl (Zofran) 4 mg IV Q8H PRN PRN PRN Reason: NAUSEA/VOMITING Last Admin: 05/03/18 12:12 Dose: 4 mg Oseltamivir Phosphate (Tamiflu) 75 mg PO BID [facility] Stop: 05/07/18 22:01 Last Admin: 05/06/18 08:55 Dose: 75 mg Potassium Chloride (K-Dur) 10 meq PO TID [facility] Last Admin: 05/06/18 06:02 Dose: 10 meq Pravastatin Sodium (Pravachol) 40 mg PO QHS [facility] Last Admin: 05/05/18 20:25 Dose: 40 mg Sodium Chloride () 5 - 15 ml IV UD PRN PRN Reason: SALINE FLUSH Last Admin: 05/06/18 06:03 Dose: 10 ml Tamsulosin HCl (Flomax) 0.4 mg PO DAILY@1730 [facility] Last Admin: 05/05/18 18:02 Dose: 0.4 mg Varenicline (Chantix) 1 mg PO BID [facility] Last Admin: 05/06/18 08:55 Dose: 1 mg Warfarin Sodium (Coumadin (Pbkc)) 5 mg PO DAILY@1700 [facility] Last Admin: 05/05/18 18:03 Dose: 5 mg Medical Necessity - Tobacco Use Smoking Status: Current every day smoker - Patient had previously been taking Chantix however recently started smoking approximately 4 cigarettes a day. Tobacco Use: Cigarettes Assessment/Plan All Active Problems Acute and chronic respiratory failure with hypoxia (Acute) COPD with acute exacerbation (Acute) SIRS (systemic inflammatory response syndrome) (Acute) Weakness (Acute) Thrush (Acute) Hypokalemia (Acute) The patient is 62-year-old male with history of chronic active smoker admitted for COPD exacerbation with acute on chronic hypoxic respiratory failure. CT chest was done and shows worsening of emphysematous changes predominantly in upper lobes on right side but no acute alveolar disease.. MRSA is negative. 1. Acute COPD exacerbation with acute on chronic hypoxic respiratory failure; probably from viral influenza A bronchitis; with history of advanced COPD:- Influenza A subtype H1 is positive. Patient is on Tamiflu. patient completed recently antibiotic and CT chest is negative for consolidation, no further indication of antibiotic. Continue steroids, Aerosols. Bipap qhs and naps. Afebrile no leukocytosis. He recently restarted smoking about 4 cigs per day. On BiPAP support. Sputum culture is ordered. MRSA nasal screen negative. No PFT in our EMR system Repeat chest x-ray ordered. Solu-Medrol increased to 60 mg every 6 hourly. CBC, BMP and INR ordered. 2. Loose bowel movement, 2 times: Patient is not on laxative. C. difficile needs to be sent if patient gets more than 3 bowel movements in 1 day as per C. difficile protocol. 2. Nicotine abuse - cessation, patch if desired. Again, recently started again. 3. Hx DVT/PE - warfarin, recently CTA negative. 4. Hx Seizures - Depakote. 5. HTN - stable. DVT ppx: warfarin. Clinical Impression(s) from Imaging Studies Chest X-Ray 05/02/18 13:40 IMPRESSION: Hyperinflation. Emphysematous changes worse in the upper lobes and more prominent on the right side. Chest CT 05/03/18 11:58 IMPRESSION: Diffuse emphysema. No acute alveolar disease. Microbiology Past 72 Hours 05/02/18 17:30 Mucosa - Nose Respiratory Panel (PCR) - Final Influenza A (Subtype H1) Code Visit Inpatient E&M: 14558 Subs Hosp L3
--- NOTE | 2018-05-06 13:14 | RAD_ITS ---
STUDY: X-RAY CHEST REASON FOR EXAM: Male, 62 years old. Shortness of breath, dyspnea TECHNIQUE: AP COMPARISON: Chest CT from 05/03/2018, chest x-ray from 05/02/2018 FINDINGS: Bullous emphysema particularly the right upper lobe better seen on prior chest CT. Parenchymal opacity at the right lung base is new since the prior chest x-ray CT. There is no demonstrated pleural abnormality. Normal size heart. Normal mediastinum and angie. Normal visualized pulmonary arteries. There is atherosclerotic calcification of the aortic arch with tortuosity. There is demineralization of the osseous structures. Normal visualized ribs, clavicles, and shoulders. There is no demonstrated abnormality of the visualized soft tissue structures of the upper abdomen. RAD/Chest 1 View (Portable) IMPRESSION: 1. Developing infiltrate in the right lower lobe. 2. Bullous emphysema. Electronically Signed: Eyal Burns MD at 15:32 EST , Service support ,
[2018-05-06 14:16] LABS: Absolute Lymphocyte Count 1.26 X10^3/ul (0.83-4.51); Absolute Neutrophil Count 8.4 X10^3/uL (2.0-7.7); Basophil# 0.02 X10^3/uL; Basophil% 0.2 % (0-1); Hematocrit 42.8 % (40-54); Hemoglobin 15.1 g/dl (13.0-16.5); Lymphocyte # 1.26 X10^3/ul (4.0); Lymphocyte % 11.7 % (19-41); Mean Corp Hgb Conc 35.3 g/gl (32-36); Mean Corpuscular Hgb 36.7 pg (27.0-32.0); Mean Corpuscular Volume 103.9 fL (80-94); Mean Platelet Vol. 10.7 fl (6.2-12.0); Monocyte# 0.81 X10^3/uL; Monocyte% 7.5 % (0-10); Neutrophil # 8.37 X10^3/uL (2.7-7.7); Neutrophil % 77.8 % (47-70); Platelet Count 124 K/mm3 (150-450); RBC Distribution Width CV 12.4 % (11.6-14.6); RBC Distribution Width SD 45.7 fl (35.1-43.9); Red Blood Count 4.12 M/mm3 (4.6-6.2); White Blood Count 10.8 K/mm3 (4.4-11.0)
[2018-05-06 14:20] LABS: International Normalized Ratio 1.8; Prothrombin Time (Protime)PT. 20.5 SECONDS (11.7-14.9)
[2018-05-06 14:22] LABS: POSITIVE COUNT YES; POSITIVE DIFFERENTIAL NO; POSITIVE MORPHOLOGY YES
[2018-05-06 14:29] LABS: Anion Gap 7 (5-15); BUN 25 mg/dL (7-18); Calcium,Total 8.4 mg/dL (8.5-10.1); Chloride 99 mmol/L (98-107); Creatinine, Serum 0.76 mg/dL (0.70-1.30); EST Glomerular Filtration Rate 111 mL/min (>60); Est Glom Filt Rate - Afr Amer 135 mL/min (>60); Estimated Creatinine Clearance 103.36 ml/min; Glucose 188 mg/dL (74-106); Potassium 4.5 mmol/L (3.5-5.1); Sodium Level 135 mmol/L (136-145)
--- NOTE | 2018-05-06 14:50 | CASEMGMT ---
RANDY DAVIDSON NOTE: *Pt had previously stated he needs a new BIPAP mask at home. Pt clarifies at this time that his mask is usable but that it is getting old and that he would like a new one. Had pt look at the BIPAP mask/hose attachement that he has been been using while @ [facility] and pt states that it would fit/looks to be compatible with his home unit. Advised pt to take this BIPAP mask home with him on discharge. RNTiffanie, made aware that the BIPAP mask pt is using @ [facility] needs to be sent home with pt on discharge and asked her to pass this information along on the handoff. *Call placed to [facility]. They feel pt would benefit from Trilogy/Non-invasive breathing unit @ home. They state they were initially working on this with Rupal Sanders/JEFF for Dr Van, pt's pulmonoligst and that pt would need to be seen by first officer after discharge. Discussed this with pt and he was made aware. Advised pt to follow-up with his first officer, re: same. Pt states he had an apppt with Dr Van but that he had to cancel it d/t illness/coming to the hospital. Pt states he will make follow-up appt with Dr Van after he is discharged. *Call placed to Dr Van's office. They were made aware of [facility]'s recommendations for Trilogy unit and that pt plans to make follow-up appt after he is discharged. Radha BAÑUELOS RN, CM
[2018-05-06] MEDS: Tamsulosin HCl 0.4 MG Capsule PO (17:07)
[2018-05-06] MEDS: Pravastatin 40 MG Tablet PO (20:53)
[2018-05-06] MEDS: guaiFENesin 1,200 MG Tablet 1200 MG PO (20:53)
[2018-05-06] MEDS: Divalproex (ER) 500 MG Tablet 1000 MG PO (20:54)
[2018-05-07] VITALS (17 sets, daily range): BP systolic 98–142; BP diastolic 68–92; PULSE 64–90; RESP 12–26; TEMP 36.1–36.9; O2SAT 91–95
[2018-05-07] MEDS: Gabapentin 300 MG Capsule PO ×3 (06:17→20:55)
[2018-05-07] MEDS: 0.9% NaCl Peripheral Flush Adult/Peds IV ×6 (06:18→22:59)
[2018-05-07] MEDS: Divalproex (ER) 500 MG Tablet PO ×2 (06:18→11:57)
[2018-05-07] MEDS: Ipratropium/Albuterol Sulfate 3 ML AMPUL.NEB INHALATION ×4 (07:43→19:41)
[2018-05-07 08:27] LABS: Prothrombin Time (Protime)PT. 22.2 SECONDS (11.7-14.9)
[2018-05-07] MEDS: guaiFENesin 1,200 MG Tablet 1200 MG PO ×2 (09:29→20:55)
[2018-05-07] MEDS: Varenicline 1 MG Tablet PO ×2 (09:29→20:55)
[2018-05-07] MEDS: Furosemide 20 MG Tablet PO ×2 (09:29→20:56)
[2018-05-07] MEDS: Oseltamivir Phosphate 75 MG Capsule PO ×2 (09:29→20:57)
--- NOTE | 2018-05-07 10:05 | PCM.PN.HOSP ---
Patient Problems: Active and Suspected Problems Acute and chronic respiratory failure with hypoxia (Acute) Subjective: Patient did not had tachycardia or fever but no improvement in shortness of breath. Patient also has cough and possible aspiration. Chest x-ray shows right lower lobe infiltrate. Started on clindamycin. Patient also loose bowel movement 2-3 times yesterday and 2 times today. C. difficile ordered. Vitals/I&O's: Vital Signs Temp Pulse Resp BP Pulse Ox 97.5 F L 90 22 H 113/71 92 05/07/18 07:36 05/07/18 12:00 05/07/18 11:39 05/07/18 07:36 05/07/18 07:43 Oxygen Flow Rate (L/min) 5 Oxygen Delivery Method Nasal Cannula Weight: 209 lb 14.081 oz Body Mass Index (BMI) 30.9 Intake and Output for Last 24 Hours 05/05/18 05/06/18 05/07/18 23:59 23:59 23:59 Intake Total 640 / 640 1120 / 1120 560 / 560 Output Total 1100 / 1100 1825 / 1825 600 / 600 Balance -460 / -460 -705 / -705 -40 / -40 General: Alert, Oriented x3, Cooperative HEENT: Atraumatic, PERRLA, EOMI, Normocephalic Neck: Supple, No JVD, Negative Carotid Bruits Lungs: Clear to auscultation, Normal air movement, Diminished - Air entry severely diminished., Rhonchi, Tachypneic, Wheezes, - - On high flow with intermittent BiPAP support Cardiovascular: Regular rate, Regular Rhythm, Normal S1, Normal S2, No murmurs Abdomen: Bowel Sounds Present, Soft, Non Tender, Non-Distended Extremities: No edema, Capillary Refill Less than 3 Seconds Skin: No rashes, No breakdown Musculoskeletal: No Tenderness to Palpation of Joints or Extremities, Arthritic Changes, Muscle Wasting Neurological: Cranial nerves II-XII grossly intact Psych/Mental Status: Normal Affect, Appropriate Microbiology Past 72 Hours 05/06/18 07:30 Sputum, Expectorated/Coughed Gram Stain - Final 05/06/18 07:30 Sputum, Expectorated/Coughed Respiratory Culture - Preliminary Appears to be normal respiratory angelika. Further studies to follow. Laboratory Results 05/06/18 13:50: PT 20.5 H, INR 1.8 05/06/18 13:50: WBC 10.8, RBC 4.12 L, Hgb 15.1, Hct 42.8, MCV 103.9 H, MCH 36.7 H, MCHC 35.3, RDW 12.4, RDW Differential 45.7 H, Plt Count 124 L, MPV 10.7, Immature Gran % (Auto) 2.800 H, Neut % (Auto) 77.8 H, Lymph % (Auto) 11.7 L, Laurens % (Auto) 7.5, Eos % (Auto) 0.0, Baso % (Auto) 0.2, Absolute Neuts (auto) 8.4 H, Absolute Lymphs (auto) 1.26, Total Counted Not Reportable, Diff Path Review July05/06/18 13:50: Sodium 135 L, Potassium 4.5, Chloride 99, Carbon Dioxide 29.0, Anion Gap 7, BUN 25 H, Creatinine 0.76, Estim Creat Clear Calc 103.36, Est GFR (MDRD) Af Amer 135, Est GFR (MDRD) Non-Af 111, BUN/Creatinine Ratio 33.0 H, Glucose 188 H, Calcium 8.4 L 05/07/18 07:55: PT 22.2 H, INR 2.0 Current Medications Acetaminophen (Tylenol) 650 mg PO Q6H PRN PRN PRN Reason: Non-cardiac pain (mod-severe) Last Admin: 05/03/18 12:06 Dose: 650 mg Al Hydroxide/Mg Hydroxide (Mylanta Ii) 30 ml PO Q6H PRN PRN PRN Reason: Gastric burning Albuterol Sulfate (Ventolin Aerosols) 2.5 mg INHALATION Q2H PRN PRN PRN Reason: SHORTNESS OF BREATH Albuterol/Ipratropium (Duoneb) 3 ml INHALATION Q4HWA.RT [facility] Last Admin: 05/07/18 11:39 Dose: 3 ml Clindamycin HCl (Cleocin) 300 mg PO TID [facility] Divalproex Sodium (Depakote Er) 1,000 mg PO QHS [facility] Last Admin: 05/06/18 20:54 Dose: 1,000 mg Divalproex Sodium (Depakote Er) 500 mg PO BID@0700,1300 [facility] Last Admin: 05/07/18 11:57 Dose: 500 mg Furosemide (Lasix) 20 mg PO BID [facility] Last Admin: 05/07/18 09:29 Dose: 20 mg Gabapentin (Neurontin) 300 mg PO TID [facility] Last Admin: 05/07/18 06:17 Dose: 300 mg Guaifenesin (Mucinex) 1,200 mg PO BID [facility] Last Admin: 05/07/18 09:29 Dose: 1,200 mg Hydralazine HCl (Apresoline Iv) 10 mg IV Q4H PRN PRN PRN Reason: SBP > 160 Lactobacillus Acidophilus (Acidophilus) 1 tablet PO TID [facility] Methylprednisolone (Solu-Medrol) 40 mg IV Q6 [facility] Last Admin: 05/07/18 11:52 Dose: 40 mg Nitroglycerin (Nitrostat) 0.4 mg SUBLINGUAL Q5M PRN PRN Reason: Chest Pain Nutritional Formula (Lactose Free) (Ensure Enlive) 120 ml PO 4X/DAY [facility] Last Admin: 05/07/18 09:29 Dose: 120 ml Ondansetron HCl (Zofran) 4 mg IV Q8H PRN PRN PRN Reason: NAUSEA/VOMITING Last Admin: 05/03/18 12:12 Dose: 4 mg Oseltamivir Phosphate (Tamiflu) 75 mg PO BID [facility] Stop: 05/07/18 22:01 Last Admin: 05/07/18 09:29 Dose: 75 mg Potassium Chloride (K-Dur) 10 meq PO TID [facility] Last Admin: 05/07/18 06:17 Dose: 10 meq Pravastatin Sodium (Pravachol) 40 mg PO QHS [facility] Last Admin: 05/06/18 20:53 Dose: 40 mg Sodium Chloride () 5 - 15 ml IV UD PRN PRN Reason: SALINE FLUSH Last Admin: 05/07/18 11:52 Dose: 10 ml Tamsulosin HCl (Flomax) 0.4 mg PO DAILY@1730 [facility] Last Admin: 05/06/18 17:07 Dose: 0.4 mg Varenicline (Chantix) 1 mg PO BID [facility] Last Admin: 05/07/18 09:29 Dose: 1 mg Warfarin Sodium (Coumadin (Pbkc)) 5 mg PO DAILY@1700 [facility] Last Admin: 05/06/18 17:07 Dose: 5 mg Medical Necessity - Tobacco Use Smoking Status: Current every day smoker - Patient had previously been taking Chantix however recently started smoking approximately 4 cigarettes a day. Tobacco Use: Cigarettes Assessment/Plan All Active Problems Acute and chronic respiratory failure with hypoxia (Acute) COPD with acute exacerbation (Acute) SIRS (systemic inflammatory response syndrome) (Acute) Weakness (Acute) Thrush (Acute) Hypokalemia (Acute) The patient is 62-year-old male with history of chronic active smoker admitted for COPD exacerbation with acute on chronic hypoxic respiratory failure. CT chest was done and shows worsening of emphysematous changes predominantly in upper lobes on right side but no acute alveolar disease.. MRSA is negative. 1. Acute COPD exacerbation with acute on chronic hypoxic respiratory failure; probably from viral influenza A bronchitis; with history of advanced COPD:- Influenza A subtype H1 is positive. Patient is on Tamiflu. patient completed recently antibiotic and CT chest is negative for consolidation, no further indication of antibiotic. Continue steroids, Aerosols. Bipap qhs and naps. Afebrile no leukocytosis. He recently restarted smoking about 4 cigs per day. On BiPAP support. Sputum culture is ordered. MRSA nasal screen negative. No PFT in our EMR system Repeat chest x-ray ordered. Solu-Medrol increased to 60 mg every 6 hourly. 2. Right lower lobe evolving infiltrate suggestive of possible right lower lobe aspiration pneumonia: Patient was given 1 dose of IV clindamycin and then he started on Flagyl 500 mg every 8 hourly. If his stool for C. difficile comes negative, can change to clindamycin. 3. Diarrhea, loose bowel movements 3 times per day: Patient is not on laxative. Stool for C. difficile ordered along with stool for leukocytes, occult blood and enteric panel. 2. Nicotine abuse - cessation, patch if desired. Again, recently started again. 3. Hx DVT/PE - warfarin, recently CTA negative. 4. Hx Seizures - Depakote. 5. HTN - stable. DVT ppx: warfarin. Heparin 5000 units subcutaneous every 8 hourly until INR is more than 2. Microbiology Past 72 Hours 05/06/18 07:30 Sputum, Expectorated/Coughed Gram Stain - Final 05/06/18 07:30 Sputum, Expectorated/Coughed Respiratory Culture - Preliminary Appears to be normal respiratory angelika. Further studies to follow. Laboratory Results 05/06/18 13:50: PT 20.5 H, INR 1.8 05/06/18 13:50: WBC 10.8, RBC 4.12 L, Hgb 15.1, Hct 42.8, MCV 103.9 H, MCH 36.7 H, MCHC 35.3, RDW 12.4, RDW Differential 45.7 H, Plt Count 124 L, MPV 10.7, Immature Gran % (Auto) 2.800 H, Neut % (Auto) 77.8 H, Lymph % (Auto) 11.7 L, Laurens % (Auto) 7.5, Eos % (Auto) 0.0, Baso % (Auto) 0.2, Absolute Neuts (auto) 8.4 H, Absolute Lymphs (auto) 1.26, Total Counted Not Reportable, Diff Path Review July05/06/18 13:50: Sodium 135 L, Potassium 4.5, Chloride 99, Carbon Dioxide 29.0, Anion Gap 7, BUN 25 H, Creatinine 0.76, Estim Creat Clear Calc 103.36, Est GFR (MDRD) Af Amer 135, Est GFR (MDRD) Non-Af 111, BUN/Creatinine Ratio 33.0 H, Glucose 188 H, Calcium 8.4 L 05/07/18 07:55: PT 22.2 H, INR 2.0 Microbiology Past 72 Hours 05/02/18 17:30 Mucosa - Nose Respiratory Panel (PCR) - Final Influenza A (Subtype H1) Clinical Impression(s) from Imaging Studies Chest X-Ray 05/02/18 13:40 IMPRESSION: Hyperinflation. Emphysematous changes worse in the upper lobes and more prominent on the right side. Chest CT 05/03/18 11:58 IMPRESSION: Diffuse emphysema. No acute alveolar disease. Chest X-Ray 05/06/18 13:14 IMPRESSION: 1. Developing infiltrate in the right lower lobe. 2. Bullous emphysema. Code Visit Inpatient E&M: 44482 Subs Hosp L3
--- NOTE | 2018-05-07 14:05 | PN_ITS ---
Patient Problems: Active and Suspected Problems Acute and chronic respiratory failure with hypoxia (Acute) Subjective: Patient did not had tachycardia or fever but no improvement in shortness of breath. Patient also has cough and possible aspiration. Chest x-ray shows right lower lobe infiltrate. Started on clindamycin. Patient also loose bowel movement 2-3 times yesterday and 2 times today. C. difficile ordered. Vitals/I&O's: Vital Signs Temp Pulse Resp BP Pulse Ox 97.5 F L 90 22 H 113/71 92 05/07/18 07:36 05/07/18 12:00 05/07/18 11:39 05/07/18 07:36 05/07/18 07:43 Oxygen Flow Rate (L/min) 5 Oxygen Delivery Method Nasal Cannula Weight: 209 lb 14.081 oz Body Mass Index (BMI) 30.9 Intake and Output for Last 24 Hours 05/05/18 05/06/18 05/07/18 23:59 23:59 23:59 Intake Total 640 / 640 1120 / 1120 560 / 560 Output Total 1100 / 1100 1825 / 1825 600 / 600 Balance -460 / -460 -705 / -705 -40 / -40 General: Alert, Oriented x3, Cooperative HEENT: Atraumatic, PERRLA, EOMI, Normocephalic Neck: Supple, No JVD, Negative Carotid Bruits Lungs: Clear to auscultation, Normal air movement, Diminished - Air entry severely diminished., Rhonchi, Tachypneic, Wheezes, - - On high flow with intermittent BiPAP support Cardiovascular: Regular rate, Regular Rhythm, Normal S1, Normal S2, No murmurs Abdomen: Bowel Sounds Present, Soft, Non Tender, Non-Distended Extremities: No edema, Capillary Refill Less than 3 Seconds Skin: No rashes, No breakdown Musculoskeletal: No Tenderness to Palpation of Joints or Extremities, Arthritic Changes, Muscle Wasting Neurological: Cranial nerves II-XII grossly intact Psych/Mental Status: Normal Affect, Appropriate Microbiology Past 72 Hours 05/06/18 07:30 Sputum, Expectorated/Coughed Gram Stain - Final 05/06/18 07:30 Sputum, Expectorated/Coughed Respiratory Culture - Preliminary Appears to be normal respiratory angelika. Further studies to follow. Laboratory Results 05/06/18 13:50: PT 20.5 H, INR 1.8 05/06/18 13:50: WBC 10.8, RBC 4.12 L, Hgb 15.1, Hct 42.8, MCV 103.9 H, MCH 36.7 H, MCHC 35.3, RDW 12.4, RDW Differential 45.7 H, Plt Count 124 L, MPV 10.7, Immature Gran % (Auto) 2.800 H, Neut % (Auto) 77.8 H, Lymph % (Auto) 11.7 L, Greer % (Auto) 7.5, Eos % (Auto) 0.0, Baso % (Auto) 0.2, Absolute Neuts (auto) 8.4 H, Absolute Lymphs (auto) 1.26, Total Counted Not Reportable, Diff Path Review July05/06/18 13:50: Sodium 135 L, Potassium 4.5, Chloride 99, Carbon Dioxide 29.0, Anion Gap 7, BUN 25 H, Creatinine 0.76, Estim Creat Clear Calc 103.36, Est GFR (MDRD) Af Amer 135, Est GFR (MDRD) Non-Af 111, BUN/Creatinine Ratio 33.0 H, Glucose 188 H, Calcium 8.4 L 05/07/18 07:55: PT 22.2 H, INR 2.0 Current Medications Acetaminophen (Tylenol) 650 mg PO Q6H PRN PRN PRN Reason: Non-cardiac pain (mod-severe) Last Admin: 05/03/18 12:06 Dose: 650 mg Al Hydroxide/Mg Hydroxide (Mylanta Ii) 30 ml PO Q6H PRN PRN PRN Reason: Gastric burning Albuterol Sulfate (Ventolin Aerosols) 2.5 mg INHALATION Q2H PRN PRN PRN Reason: SHORTNESS OF BREATH Albuterol/Ipratropium (Duoneb) 3 ml INHALATION Q4HWA.RT [facility] Last Admin: 05/07/18 11:39 Dose: 3 ml Clindamycin HCl (Cleocin) 300 mg PO TID [facility] Divalproex Sodium (Depakote Er) 1,000 mg PO QHS [facility] Last Admin: 05/06/18 20:54 Dose: 1,000 mg Divalproex Sodium (Depakote Er) 500 mg PO BID@0700,1300 [facility] Last Admin: 05/07/18 11:57 Dose: 500 mg Furosemide (Lasix) 20 mg PO BID [facility] Last Admin: 05/07/18 09:29 Dose: 20 mg Gabapentin (Neurontin) 300 mg PO TID [facility] Last Admin: 05/07/18 06:17 Dose: 300 mg Guaifenesin (Mucinex) 1,200 mg PO BID [facility] Last Admin: 05/07/18 09:29 Dose: 1,200 mg Hydralazine HCl (Apresoline Iv) 10 mg IV Q4H PRN PRN PRN Reason: SBP > 160 Lactobacillus Acidophilus (Acidophilus) 1 tablet PO TID [facility] Methylprednisolone (Solu-Medrol) 40 mg IV Q6 [facility] Last Admin: 05/07/18 11:52 Dose: 40 mg Nitroglycerin (Nitrostat) 0.4 mg SUBLINGUAL Q5M PRN PRN Reason: Chest Pain Nutritional Formula (Lactose Free) (Ensure Enlive) 120 ml PO 4X/DAY [facility] Last Admin: 05/07/18 09:29 Dose: 120 ml Ondansetron HCl (Zofran) 4 mg IV Q8H PRN PRN PRN Reason: NAUSEA/VOMITING Last Admin: 05/03/18 12:12 Dose: 4 mg Oseltamivir Phosphate (Tamiflu) 75 mg PO BID [facility] Stop: 05/07/18 22:01 Last Admin: 05/07/18 09:29 Dose: 75 mg Potassium Chloride (K-Dur) 10 meq PO TID [facility] Last Admin: 05/07/18 06:17 Dose: 10 meq Pravastatin Sodium (Pravachol) 40 mg PO QHS [facility] Last Admin: 05/06/18 20:53 Dose: 40 mg Sodium Chloride () 5 - 15 ml IV UD PRN PRN Reason: SALINE FLUSH Last Admin: 05/07/18 11:52 Dose: 10 ml Tamsulosin HCl (Flomax) 0.4 mg PO DAILY@1730 [facility] Last Admin: 05/06/18 17:07 Dose: 0.4 mg Varenicline (Chantix) 1 mg PO BID [facility] Last Admin: 05/07/18 09:29 Dose: 1 mg Warfarin Sodium (Coumadin (Pbkc)) 5 mg PO DAILY@1700 [facility] Last Admin: 05/06/18 17:07 Dose: 5 mg Medical Necessity - Tobacco Use Smoking Status: Current every day smoker - Patient had previously been taking Chantix however recently started smoking approximately 4 cigarettes a day. Tobacco Use: Cigarettes Assessment/Plan All Active Problems Acute and chronic respiratory failure with hypoxia (Acute) COPD with acute exacerbation (Acute) SIRS (systemic inflammatory response syndrome) (Acute) Weakness (Acute) Thrush (Acute) Hypokalemia (Acute) The patient is 62-year-old male with history of chronic active smoker admitted for COPD exacerbation with acute on chronic hypoxic respiratory failure. CT chest was done and shows worsening of emphysematous changes predominantly in upper lobes on right side but no acute alveolar disease.. MRSA is negative. 1. Acute COPD exacerbation with acute on chronic hypoxic respiratory failure; probably from viral influenza A bronchitis; with history of advanced COPD:- Inf luenza A subtype H1 is positive. Patient is on Tamiflu. patient completed recently antibiotic and CT chest is negative for consolidation, no further indication of antibiotic. Continue steroids, Aerosols. Bipap qhs and naps. Afebrile no leukocytosis. He recently restarted smoking about 4 cigs per day. On BiPAP support. Sputum culture is ordered. MRSA nasal screen negative. No PFT in our EMR system Repeat chest x-ray ordered. Solu-Medrol increased to 60 mg every 6 hourly. 2. Right lower lobe evolving infiltrate suggestive of possible right lower lobe aspiration pneumonia: Patient was given 1 dose of IV clindamycin and then he started on Flagyl 500 mg every 8 hourly. If his stool for C. difficile comes negative, can change to clindamycin. 3. Diarrhea, loose bowel movements 3 times per day: Patient is not on laxative. Stool for C. difficile ordered along with stool for leukocytes, occult blood and enteric panel. 2. Nicotine abuse - cessation, patch if desired. Again, recently started again. 3. Hx DVT/PE - warfarin, recently CTA negative. 4. Hx Seizures - Depakote. 5. HTN - stable. DVT ppx: warfarin. Heparin 5000 units subcutaneous every 8 hourly until INR is more than 2. Microbiology Past 72 Hours 05/06/18 07:30 Sputum, Expectorated/Coughed Gram Stain - Final 05/06/18 07:30 Sputum, Expectorated/Coughed Respiratory Culture - Pre liminary Appears to be normal respiratory angelika. Further studies to follow. Laboratory Results 05/06/18 13:50: PT 20.5 H, INR 1.8 05/06/18 13:50: WBC 10.8, RBC 4.12 L, Hgb 15.1, Hct 42.8, MCV 103.9 H, MCH 36.7 H, MCHC 35.3, RDW 12.4, RDW Differential 45.7 H, Plt Count 124 L, MPV 10.7, Immature Gran % (Auto) 2.800 H, Neut % (Auto) 77.8 H, Lymph % (Auto) 11.7 L, Greer % (Auto) 7.5, Eos % (Auto) 0.0, Baso % (Auto) 0.2, Absolute Neuts (auto) 8.4 H, Absolute Lymphs (auto) 1.26, Total Counted Not Reportable, Diff Path Review July05/06/18 13:50: Sodium 135 L, Potassium 4.5, Chloride 99, Carbon Dioxide 29.0, Anion Gap 7, BUN 25 H, Creatinine 0.76, Estim Creat Clear Calc 103.36, Est GFR (MDRD) Af Amer 135, Est GFR (MDRD) Non-Af 111, BUN/Creatinine Ratio 33.0 H, Glucose 188 H, Calcium 8.4 L 05/07/18 07:55: PT 22.2 H, INR 2.0 Microbiology Past 72 Hours 05/02/18 17:30 Mucosa - Nose Respiratory Panel (PCR) - Final Influenza A (Subtype H1) Clinical Impression(s) from Imaging Studies Chest X-Ray 05/02/18 13:40 IMPRESSION: Hyperinflation. Emphysematous changes worse in the upper lobes and more prominent on the right side. Chest CT 05/03/18 11:58 IMPRESSION: Diffuse emphysema. No acute alveolar disease. Chest X-Ray 05/06/18 13:14 IMPRESSION: 1. Developing infiltrate in the right lower lobe. 2. Bullous emphysema. Code Visit Inpatient E&M: 61361 Subs Hosp L3
[2018-05-07] MEDS: Clindamycin HCl 150 MG Capsule 300 MG PO (14:07)
[2018-05-07] MEDS: Tamsulosin HCl 0.4 MG Capsule PO (17:20)
[2018-05-07] MEDS: Pravastatin 40 MG Tablet PO (20:55)
[2018-05-07] MEDS: Divalproex (ER) 500 MG Tablet 1000 MG PO (20:56)
[2018-05-08] VITALS (14 sets, daily range): BP systolic 116–134; BP diastolic 62–94; PULSE 58–98; RESP 12–23; TEMP 36.5–36.9; O2SAT 92–98
[2018-05-08] MEDS: 0.9% NaCl Peripheral Flush Adult/Peds IV ×3 (05:54→17:59)
[2018-05-08] MEDS: Gabapentin 300 MG Capsule PO ×3 (05:54→21:00)
[2018-05-08] MEDS: Divalproex (ER) 500 MG Tablet PO ×2 (05:55→13:21)
[2018-05-08] MEDS: Ipratropium/Albuterol Sulfate 3 ML AMPUL.NEB INHALATION ×4 (06:54→19:34)
[2018-05-08 07:15] LABS: International Normalized Ratio 2.5; Prothrombin Time (Protime)PT. 27.3 SECONDS (11.7-14.9)
--- NOTE | 2018-05-08 07:27 | PN_ITS ---
Patient Problems: Active and Suspected Problems Acute and chronic respiratory failure with hypoxia (Acute) Subjective: Patient was seen and examined. He complains of difficulty breaking up his sputum. He is on 5 L of oxygen. He is on 4 L at home. He denied any fever but admits to having chills. Denied nausea or vomiting. Vitals/I&O's: Vital Signs Temp Pulse Resp BP Pulse Ox 97.7 F L 59 L 20 H 116/67 96 05/08/18 03:00 05/08/18 03:53 05/08/18 03:00 05/08/18 03:00 05/08/18 03:00 Oxygen Flow Rate (L/min) 5 Oxygen Delivery Method Bi-pap Weight: 95.2 kg Body Mass Index (BMI) 30.9 Intake and Output for Last 24 Hours 05/06/18 05/07/18 05/08/18 23:59 23:59 23:59 Intake Total 1120 / 1120 1317 / 1317 217 / 217 Output Total 1825 / 1825 1200 / 1200 900 / 900 Balance -705 / -705 117 / 117 -683 / -683 General: Alert, Oriented x3, Cooperative, - - in mild respiratory distress, on 5L oxygen HEENT: Atraumatic, PERRLA, EOMI, Normocephalic Oral: Moist Mucosa Neck: Supple Lungs: Normal air movement, Diminished Cardiovascular: Regular rate, Regular Rhythm, Normal S1, Normal S2, No murmurs Abdomen: Bowel Sounds Present, Soft, Non Tender, Non-Distended, No Hepato- splenomegaly Extremities: No edema Skin: No rashes, No breakdown Musculoskeletal: No Tenderness to Palpation of Joints or Extremities Lymphatic: No Cervical, Supraclavicular, or Inguinal Adenopathy Neurological: Cranial nerves II-XII grossly intact, Neuro grossly intact Psych/Mental Status: Normal Affect, Appropriate Microbiology Past 72 Hours 05/06/18 07:30 Sputum, Expectorated/Coughed Gram Stain - Final 05/06/18 07:30 Sputum, Expectorated/Coughed Respiratory Culture - Preliminary Appears to be normal respiratory angelika. Further studies to follow. Laboratory Results 05/07/18 07:55: PT 22.2 H, INR 2.0 05/08/18 06:40: PT 27.3 H, INR 2.5 Current Medications Acetaminophen (Tylenol) 650 mg PO Q6H PRN PRN PRN Reason: Non-cardiac pain (mod-severe) Last Admin: 05/03/18 12:06 Dose: 650 mg Al Hydroxide/Mg Hydroxide (Mylanta Ii) 30 ml PO Q6H PRN PRN PRN Reason: Gastric burning Albuterol Sulfate (Ventolin Aerosols) 2.5 mg INHALATION Q2H PRN PRN PRN Reason: SHORTNESS OF BREATH Albuterol/Ipratropium (Duoneb) 3 ml INHALATION Q4HWA.RT [facility] Last Admin: 05/07/18 19:41 Dose: 3 ml Divalproex Sodium (Depakote Er) 1,000 mg PO QHS [facility] Last Admin: 05/07/18 20:56 Dose: 1,000 mg Divalproex Sodium (Depakote Er) 500 mg PO BID@0700,1300 [facility] Last Admin: 05/08/18 05:55 Dose: 500 mg Furosemide (Lasix) 20 mg PO BID [facility] Last Admin: 05/07/18 20:56 Dose: 20 mg Gabapentin (Neurontin) 300 mg PO TID [facility] Last Admin: 05/08/18 05:54 Dose: 300 mg Guaifenesin (Mucinex) 1,200 mg PO BID [facility] Last Admin: 05/07/18 20:55 Dose: 1,200 mg Hydralazine HCl (Apresoline Iv) 10 mg IV Q4H PRN PRN PRN Reason: SBP > 160 Piperacillin Sod/Tazobactam (Sod 3.375 gm/ Sodium Chloride) 50 mls @ 12.5 mls/hr IV Q8 [facility] Last Admin: 05/08/18 05:55 Dose: 12.5 mls/hr Lactobacillus Acidophilus (Acidophilus) 1 tablet PO TID [facility] Last Admin: 05/08/18 05:54 Dose: 1 tablet Methylprednisolone (Solu-Medrol) 40 mg IV Q6 [facility] Last Admin: 05/08/18 05:54 Dose: 40 mg Nitroglycerin (Nitrostat) 0.4 mg SUBLINGUAL Q5M PRN PRN Reason: Chest Pain Nutritional Formula (Lactose Free) (Ensure Enlive) 120 ml PO 4X/DAY [facility] Last Admin: 05/07/18 20:56 Dose: 120 ml Ondansetron HCl (Zofran) 4 mg IV Q8H PRN PRN PRN Reason: NAUSEA/VOMITING Last Admin: 05/03/18 12:12 Dose: 4 mg Potassium Chloride (K-Dur) 10 meq PO TID [facility] Last Admin: 05/08/18 05:54 Dose: 10 meq Pravastatin Sodium (Pravachol) 40 mg PO QHS [facility] Last Admin: 05/07/18 20:55 Dose: 40 mg Sodium Chloride () 5 - 15 ml IV UD PRN PRN Reason: SALINE FLUSH Last Admin: 05/08/18 05:54 Dose: 10 ml Tamsulosin HCl (Flomax) 0.4 mg PO DAILY@1730 [facility] Last Admin: 05/07/18 17:20 Dose: 0.4 mg Varenicline (Chantix) 1 mg PO BID [facility] Last Admin: 05/07/18 20:55 Dose: 1 mg Warfarin Sodium (Coumadin (Pbkc)) 5 mg PO DAILY@1700 [facility] Last Admin: 05/07/18 17:19 Dose: 5 mg Medical Necessity - Tobacco Use Smoking Status: Current every day smoker - Patient had previously been taking Chantix however recently started smoking approximately 4 cigarettes a day. Tobacco Use: Cigarettes Assessment/Plan All Active Problems Acute and chronic respiratory failure with hypoxia (Acute) COPD with acute exacerbation (Acute) SIRS (systemic inflammatory response syndrome) (Acute) Weakness (Acute) Thrush (Acute) Hypokalemia (Acute) 62-year-old male with past medical history of COPD, on chronic 4 L home oxygen, recently admitted and discharged with acute COPD exacerbation comes in with worsening shortness of breath found to have acute influenza A. 1. Acute on chronic hypoxic respiratory failure secondary to acute influenza A bronchitis with possible aspiration pneumonia versus HCAP Patient is currently on 5 L of oxygen, on 4 L of oxygen at home, will continue breathing treatment, continue to wean off oxygen to home O2 level Respiratory therapy to assist patient with vest therapy. 2. Acute influenza A bronchitis, completed Tamiflu, on IV solumedrol, breathing treatments, will switch to prednisone taper possibly tomorrow if he improves. 3. HCAP vs possible aspiration pneumonia, on IV Zosyn( day 2) speech therapy consulted, feel patient is at risk for aspiration, swallow eval recommended today, will continue with Zosyn for now, will re- evaluate and de-escalate if needed 4. Acvute diarrhea, resolving, C. difficile negative, FOBT negative, will continue to monitor 5. Nicotine dependence, on replacement 6. History of DVT/PE, on Coumadin, INR therapeutic at 2.5 7. H/o seizures, on Depakote 8. Hypertension, controlled 9. DVT PPx-on Coumadin, INR is therapeutic, 10. Disposition - Possible DC in 24-48 hours Code Visit Inpatient E&M: 63846 Subs Hosp L2
[2018-05-08] MEDS: guaiFENesin 1,200 MG Tablet 1200 MG PO ×2 (10:27→21:00)
[2018-05-08] MEDS: Varenicline 1 MG Tablet PO ×2 (10:27→21:00)
[2018-05-08] MEDS: Furosemide 20 MG Tablet PO ×2 (10:27→21:00)
--- NOTE | 2018-05-08 12:45 | SP.MBSS_ITS ---
PRIMARY / SECONDARY DIAGNOSIS: dysphagia (R13.10) REFERRING PHYSICIAN: Dr. Mini Marx MD CURRENT DIET: regular textures, thin liquids DENTITION: edentulous MENTAL STATUS: WFL RESPIRATORY STATUS: O2 at 4L/min via nasal cannula. REASON FOR REFERRAL: The Patient is a 62 year old male referred for a modified barium swallow (MBS) study to objectively assess the Patients oropharyngeal swallow function under fluoroscopy secondary to concerns for persistent aspiration; currently admitted with right lower lobe infiltrate with suspicion of aspiration; healthcare acquired pneumonia vs. aspiration pneumonia. ADDITIONAL OBJECTIVE ASSESSMENT RESULTS: 05/02/2018 CXR revealed hyperinflation; emphysematous changes worse in the upper lobes and more prominent on the right side. 05/03/[address] revealed diffuse emphysema; no acute alveolar disease. 05/06/2018 CXR revealed developing infiltrate in the right lower lobe; bullous emphysema. MEDICAL HISTORY: Chronic obstructive pulmonary disease with acute exacerbations and chronic hypoxic respiratory failure, pulmonary embolism, seizure disorder, hypertension, tobacco use, deep vein thrombosis. ASSESSMENT PARAMETERS: The Patient participated in a Modified Barium Swallow (MBS) study on 05/08/2018. Dr. Quintanilla was the radiologist present for this evaluation. This study was recorded in the lateral view and images were sent to PACs for storage. Scoring was completed with each trial through the 8-point Penetration-Aspiration Scale (PAS) and Videofluoroscopic Scale Score (VSS), and summarized via the Modified Barium Swallow Impairment Profile (MBSImP) and Bolus Residue Scale (BRS) with severity scoring through the Dysphagia Severity Rating Scale (DSRS) and Swallowing Performance Scale (PSP), and recommended diet textures through the International Dysphagia Diet Standardisation Initiative (IDDSI). RESULTS OF THE EVALUATION: The Patient presents with mild to moderate oropharyngeal dysphagia (SPS: 4; DSRS: 3) with transient penetration with thin liquids likely secondary to the diagnosis of chronic obstructive pulmonary disease. OBJECTIVE ASSESSMENT OF SWALLOW FUNCTION (QUANTITATIVE ? PER TRIAL): PENETRATION / ASPIRATION SCALE (RIGGINS): 1 = does not enter airway 2 = enters airway/above vocal folds/ejected 3 = enters airway/above vocal folds/not ejected 4 = enters airway/contacts vocal folds/ejected 5 = enters airway/contacts vocal folds/not ejected 6 = enters airway/below vocal folds/ejected 7 = enters airway/below vocal folds/not ejected despite effort 8 = enters airway/below vocal folds/no effort VIDEOFLOROSCOPIC SCALE SCORE (RIGGINS): Grade I = aspiration of material that has penetrated into the laryngeal vestibule, intact cough reflex Grade II = aspiration < 10 % of the bolus, intact cough reflex Grade III = aspiration of < 10 % of the bolus, reduced cough reflex or aspiration of > 10 % of the bolus, intact cough reflex Grade IV = aspiration of > 10 % of the bolus, reduced cough reflex PENETRATION / ASPIRATION SCALE (SCORE) WITH VIDEOFLOROSCOPIC SCALE SCORE: Thin liquid - 5 mL tsp.: 1 Thin liquids via cup (single sip): 1 Thin liquids via cup (single sip): 2 Thin liquids via cup (single sip): 1 Thin liquids via straw (single sip): 2 Thin liquids via straw (sequential swallows): 3 Pudding via spoon: 1 Regular textured cookie: 1 Thin liquids via straw (sequential swallows): 4 OBJECTIVE ASSESSMENT OF SWALLOW FUNCTION (QUANTITATIVE ? AGGREGATE): MODIFIED BARIUM SWALLOW IMPAIRMENT PROFILE (MBSImP) LABIAL SEAL: 0 (of 4) no labial escape TONGUE CONTROL DURING BOLUS MANIPULATION: 2 (of 3) posterior escape < 50% BOLUS PREPARATION / MASTICATION: 1 (of 3) slow prolonged; complete recollection BOLUS TRANSPORT / LINGUAL MOTION: 0 (of 4) brisk tongue motion ORAL RESIDUE: 2 (of 4) residue collection on oral structures INITIATION OF PHARYNGEAL SWALLOW: 3 (of 4) bolus head in pyriforms SOFT PALATE ELEVATION: 0 (of 4) no bolus between soft palate & pharyngeal wall LARYNGEAL ELEVATION: 1 (of 3) partial superior movement; partial approximation ANTERIOR HYOID EXCURSION: 1 (of 2) partial anterior movement EPIGLOTTIC MOVEMENT: 0 (of 2) complete epiglottic inversion LARYNGEAL VESTIBULE CLOSURE: 1 (of 2) incomplete PHARYNGEAL STRIPPING WAVE: 1 (of 2) present / diminished PE SEGMENT OPENIN (of 3) complete distension / duration; no obstruction TONGUE BASE RETRACTION: 2 (of 4) narrow column of contrast PHARYNGEAL RESIDUE: 2 (of 4) collection of residue ESOPHAGEAL BOLUS CLEARANCE: could not view BOLUS RESIDUE SCALE (BRS): 2 (of 6) residue in valleculae DYSPHAGIA SEVERITY RATING SCALE (DSRS): 3 (mild-moderate) SWALLOWING PERFORMANCE SCALE (SPS): 4 (mild to moderate) OBJECTIVE ASSESSMENT OF SWALLOW FUNCTION (QUALITATIVE): ORAL PREPARATORY PHASE: oral preparatory phase marked by mild (albeit effective) mastication inefficiency with sufficient oral containment; difficulty with bolus formation / breath management with opened mouth breathing reported (reports most prominent towards end of meals) ORAL TRANSITIONAL PHASE: oral transitional phase marked by no presence of transitional incompetence; sufficient bolus transportation without lingual discoordination (no tremor / undulations); sufficient oral clearance; intermittent premature posterior bolus loss predominantly during trials of larger bolus sizes of thin liquids PHARYNGEAL PHASE: pharyngeal phase marked by mild pharyngeal phase delay / dyssynchrony; intermittent mild reduction in hyolaryngeal excursion resulting in inconsistent suboptimal laryngeal vestibule closure / pressure, with inconsistent laryngeal vestibule pressure generated to expel penetrated material; mild pharyngeal dysmotility attributed to mild reductions in tongue based retraction and posterior pharyngeal stripping wave action; no signs of velopharyngeal impairments; no aspiration throughout trials. ESOPHAGEAL PHASE: No obvious esophageal phase abnormalities observed. CONTRIBUTING / COMPLICATING FACTORS AND NOTABLE FINDINGS: sufficient volitional cough intensity to expel penetrated material. All deficits managed successfully with bolus rate / volume adjustments. No aspiration appreciated throughout trials, unable to definitively rule out silent aspiration. RECOMMENDATIONS AND CONSIDERATIONS: The Patient requires intensive skilled speech-language intervention targeting diet texture management and training / implementation of recommended compensatory strategies; Patient and caregiver education regarding dysphagia associated with chronic obstructive pulmonary disease (COPD); and Patient and caregiver training targeting meal preparation if unable to advance to baseline diet textures prior to discharge. Results and recommendations were discussed with the Patient immediately following MBS completion, with the Patient verbalizing understanding and agreement with all recommendations and education provided. DIET TEXTURE RECOMMENDATIONS: Will recommend a mechanical soft textured (IDDSI: 5), thin liquid diet (IDDSI: 0) diet. RECOMMENDED COMPENSATORY STRATEGIES: Distant supervision, reduced bolus volume / rate of ingestion, seated upright at 90 degrees during PO intake, remain upright for 30-60 minutes post meal (GERD precaution), medications one at a time with a liquid chaser. IMAGE COUNT: [id number] Cecilio Arnold M.A., CCC-RECYCLE COORDINATOR MBSImP Certified, LSVT Certified [facility] Speech-Language Pathology Department [email or web address]
--- NOTE | 2018-05-08 14:00 | RAD_ITS ---
STUDY: SWALLOWING STUDY REASON FOR EXAM: Male, 62 years old. Dysphagia. TECHNIQUE: The examination was performed with Speech Pathology in attendance. Under fluoroscopic observation, the patient ingested thin barium, thick barium, barium pudding, and barium coated cracker. FLUOROSCOPY TIME: 1:52 minutes/seconds. [id number] images were obtained. RADIOLOGIST INVOLVEMENT: Radiologist was present and providing direct supervision. COMPARISON: None. FINDINGS: The following was observed during swallowing of the various mixtures of barium: Thin Barium: Transient penetration with ingestion of thin liquids. Thick Barium: There was no evidence of aspiration or laryngeal penetration. Barium Pudding: There was no evidence of aspiration or laryngeal penetration. Barium Coated Cracker: There was no evidence of aspiration or laryngeal penetration. RAD/Swallowing Function w/Video IMPRESSION: Transient penetration with ingestion of thin liquids. The swallow study findings were discussed with the patient by the speech pathologist at the conclusion of the examination. Please see speech pathology report for more information and recommendations. Electronically Signed: Mack Quintanilla, at 9:56 EST , Service support ,
[2018-05-08 14:17] LABS: Pathologist Review Reviewed
[2018-05-08] MEDS: Tamsulosin HCl 0.4 MG Capsule PO (17:58)
[2018-05-08] MEDS: Pravastatin 40 MG Tablet PO (21:00)
[2018-05-08] MEDS: Divalproex (ER) 500 MG Tablet 1000 MG PO (21:00)
[2018-05-09] VITALS (17 sets, daily range): BP systolic 118–127; BP diastolic 61–75; PULSE 51–94; RESP 12–24; TEMP 36.6–36.9; O2SAT 92–96
[2018-05-09] MEDS: Divalproex (ER) 500 MG Tablet PO ×2 (06:09→12:39)
[2018-05-09] MEDS: Gabapentin 300 MG Capsule PO ×3 (06:09→21:13)
[2018-05-09] MEDS: Ipratropium/Albuterol Sulfate 3 ML AMPUL.NEB INHALATION ×4 (07:23→19:21)
[2018-05-09 07:50] LABS: Anion Gap 3 (5-15); BUN 20 mg/dL (7-18); BUN/Creat Ratio 26.7 RATIO (10-20); Calcium,Total 7.9 mg/dL (8.5-10.1); Chloride 100 mmol/L (98-107); Creatinine, Serum 0.75 mg/dL (0.70-1.30); EST Glomerular Filtration Rate 113 mL/min (>60); Est Glom Filt Rate - Afr Amer 137 mL/min (>60); Estimated Creatinine Clearance 104.74 ml/min; Glucose 198 mg/dL (74-106); Potassium 4.8 mmol/L (3.5-5.1); Sodium Level 135 mmol/L (136-145)
[2018-05-09 07:52] LABS: International Normalized Ratio 2.6; Prothrombin Time (Protime)PT. 27.9 SECONDS (11.7-14.9)
[2018-05-09 07:53] LABS: Hematocrit 44.7 % (40-54); Hemoglobin 15.2 g/dl (13.0-16.5); Mean Corpuscular Hgb 34.9 pg (27.0-32.0); Mean Corpuscular Volume 102.8 fL (80-94); Mean Platelet Vol. 10.6 fl (6.2-12.0); Platelet Count 133 K/mm3 (150-450); RBC Distribution Width CV 12.6 % (11.6-14.6); RBC Distribution Width SD 46.2 fl (35.1-43.9); Red Blood Count 4.35 M/mm3 (4.6-6.2); White Blood Count 10.7 K/mm3 (4.4-11.0)
[2018-05-09 08:06] LABS: Differential Indicated MANUAL DIFF; POSITIVE COUNT YES; POSITIVE DIFFERENTIAL NO; POSITIVE MORPHOLOGY YES
[2018-05-09 08:59] LABS: Lymphocyte 16 % (19-41); Metamyelocyte 1 % (0-1); Monocyte 3 % (0-10); Myelocyte 5 (0-0); Neutrophil-Band 2 % (0-5); Neutrophil-Segmented 72 % (47-70); Promyelocyte 1 (0-0); Total Cells Counted 100 (MANUAL DIFF)
[2018-05-09 09:03] LABS: Red Cell Morphology NORM C+C NORMAL (NORM C&C)
[2018-05-09 09:04] LABS: Platelet Estimate MOD DEC (ADEQ)
[2018-05-09 09:06] LABS: Absolute Neutrophil Count 7.9 X10^3/uL (2.0-7.7); Neutrophil # 7.88 X10^3/uL (2.7-7.7)
[2018-05-09] MEDS: Furosemide 20 MG Tablet PO ×2 (09:42→21:13)
[2018-05-09] MEDS: Varenicline 1 MG Tablet PO ×2 (09:42→21:13)
[2018-05-09] MEDS: guaiFENesin 1,200 MG Tablet 1200 MG PO ×2 (09:42→21:13)
--- NOTE | 2018-05-09 12:07 | PCM.PN.HOSP ---
Patient Problems: Active and Suspected Problems Acute and chronic respiratory failure with hypoxia (Acute) Subjective: Patient was seen and examined. He is using the vest therapy, feels that staff is been losing, but unable to be expectorated. Denies any fever or chills He is on 5 L of oxygen. Appears mildly anxious/dyspneic. Objective: Physical exam: General: Alert, Oriented x3, Cooperative, - - in mild respiratory distress, on 5L oxygen HEENT: Atraumatic, PERRLA, EOMI, Normocephalic Oral: Moist Mucosa Neck: Supple Lungs: Normal air movement, Diminished Cardiovascular: Regular rate, Regular Rhythm, Normal S1, Normal S2, No murmurs Abdomen: Bowel Sounds Present, Soft, Non Tender, Non-Distended, No Hepato-splenomegaly Extremities: No edema Skin: No rashes, No breakdown Musculoskeletal: No Tenderness to Palpation of Joints or Extremities Lymphatic: No Cervical, Supraclavicular, or Inguinal Adenopathy Neurological: Cranial nerves II-XII grossly intact, Neuro grossly intact Psych/Mental Status: Normal Affect, Appropriate Vitals/I&O's: Vital Signs Temp Pulse Resp BP Pulse Ox 98.4 F 82 20 H 127/67 H 92 05/09/18 09:33 05/09/18 11:05 05/09/18 11:05 05/09/18 09:33 05/09/18 09:33 Oxygen Flow Rate (L/min) 5 Oxygen Delivery Method Nasal Cannula Weight: 95.2 kg Body Mass Index (BMI) 30.9 Intake and Output for Last 24 Hours 05/07/18 05/08/18 05/09/18 23:59 23:59 23:59 Intake Total 1317 / 1317 2357 / 2357 733 / 733 Output Total 1200 / 1200 1600 / 1600 675 / 675 Balance 117 / 117 757 / 757 58 / 58 Microbiology Past 72 Hours 05/08/18 06:20 Stool Enteric Bacteriology - Final 05/06/18 07:30 Sputum, Expectorated/Coughed Gram Stain - Final 05/06/18 07:30 Sputum, Expectorated/Coughed Respiratory Culture - Final Gram positive jan Mixed Jen 05/08/18 06:20 Stool C. difficile DNA Amplification - Final 05/08/18 06:20 Stool Stool Lactoferrin - Final 05/08/18 06:20 Stool Stool Occult Blood (ARACELI) - Final Laboratory Results 05/06/18 13:50: Diff Path Review Reviewed 05/09/18 07:10: PT 27.9 H, INR 2.6 05/09/18 07:10: WBC 10.7, RBC 4.35 L, Hgb 15.2, Hct 44.7, MCV 102.8 H, MCH 34.9 H, MCHC 34.0, RDW 12.6, RDW Differential 46.2 H, Plt Count 133 L, MPV 10.6, Neut % (Auto) Not Reportable, Absolute Neuts (auto) 7.9 H, Absolute Lymphs (auto) 1.70, Total Counted 100, Neutrophils % (Manual) 72 H, Band Neutrophils % 2, Lymphocytes % (Manual) 16 L, Monocytes % (Manual) 3, Metamyelocytes % 1, Myelocytes % 5 H, Promyelocytes % 1 H, Diff Path Review May foll, Platelet Estimate MOD DEC, RBC Morphology NORM C+C 05/09/18 07:10: Sodium 135 L, Potassium 4.8, Chloride 100, Carbon Dioxide 32.0, Anion Gap 3 L, BUN 20 H, Creatinine 0.75, Estim Creat Clear Calc 104.74, Est GFR (MDRD) Af Amer 137, Est GFR (MDRD) Non-Af 113, BUN/Creatinine Ratio 26.7 H, Glucose 198 H, Calcium 7.9 L Current Medications Acetaminophen (Tylenol) 650 mg PO Q6H PRN PRN PRN Reason: Non-cardiac pain (mod-severe) Last Admin: 05/03/18 12:06 Dose: 650 mg Al Hydroxide/Mg Hydroxide (Mylanta Ii) 30 ml PO Q6H PRN PRN PRN Reason: Gastric burning Albuterol Sulfate (Ventolin Aerosols) 2.5 mg INHALATION Q2H PRN PRN PRN Reason: SHORTNESS OF BREATH Albuterol/Ipratropium (Duoneb) 3 ml INHALATION Q4HWA.RT [facility] Last Admin: 05/09/18 11:12 Dose: 3 ml Divalproex Sodium (Depakote Er) 1,000 mg PO QHS [facility] Last Admin: 05/08/18 21:00 Dose: 1,000 mg Divalproex Sodium (Depakote Er) 500 mg PO BID@0700,1300 [facility] Last Admin: 05/09/18 06:09 Dose: 500 mg Furosemide (Lasix) 20 mg PO BID [facility] Last Admin: 05/09/18 09:42 Dose: 20 mg Gabapentin (Neurontin) 300 mg PO TID [facility] Last Admin: 05/09/18 06:09 Dose: 300 mg Guaifenesin (Mucinex) 1,200 mg PO BID [facility] Last Admin: 05/09/18 09:42 Dose: 1,200 mg Hydralazine HCl (Apresoline Iv) 10 mg IV Q4H PRN PRN PRN Reason: SBP > 160 Piperacillin Sod/Tazobactam (Sod 3.375 gm/ Sodium Chloride) 50 mls @ 12.5 mls/hr IV Q8 [facility] Last Admin: 05/09/18 06:09 Dose: 12.5 mls/hr Lactobacillus Acidophilus (Acidophilus) 1 tablet PO TID [facility] Last Admin: 05/09/18 06:09 Dose: 1 tablet Methylprednisolone (Solu-Medrol) 40 mg IV Q6 [facility] Last Admin: 05/09/18 06:09 Dose: 40 mg Nitroglycerin (Nitrostat) 0.4 mg SUBLINGUAL Q5M PRN PRN Reason: Chest Pain Ondansetron HCl (Zofran) 4 mg IV Q8H PRN PRN PRN Reason: NAUSEA/VOMITING Last Admin: 05/03/18 12:12 Dose: 4 mg Potassium Chloride (K-Dur) 10 meq PO TID [facility] Last Admin: 05/09/18 06:09 Dose: 10 meq Pravastatin Sodium (Pravachol) 40 mg PO QHS [facility] Last Admin: 05/08/18 21:00 Dose: 40 mg Sodium Chloride () 5 - 15 ml IV UD PRN PRN Reason: SALINE FLUSH Last Admin: 05/08/18 17:59 Dose: 10 ml Tamsulosin HCl (Flomax) 0.4 mg PO DAILY@1730 [facility] Last Admin: 05/08/18 17:58 Dose: 0.4 mg Varenicline (Chantix) 1 mg PO BID [facility] Last Admin: 05/09/18 09:42 Dose: 1 mg Warfarin Sodium (Coumadin (Pbkc)) 5 mg PO DAILY@1700 [facility] Last Admin: 05/08/18 17:58 Dose: 5 mg Medical Necessity - Tobacco Use Smoking Status: Current every day smoker - Patient had previously been taking Chantix however recently started smoking approximately 4 cigarettes a day. Tobacco Use: Cigarettes Assessment/Plan All Active Problems Acute and chronic respiratory failure with hypoxia (Acute) COPD with acute exacerbation (Acute) SIRS (systemic inflammatory response syndrome) (Acute) Weakness (Acute) Thrush (Acute) Hypokalemia (Acute) 62-year-old male with past medical history of COPD, on chronic 4 L home oxygen, recently admitted and discharged with acute COPD exacerbation comes in with worsening shortness of breath found to have acute influenza A. 1. Acute on chronic hypoxic respiratory failure secondary to acute influenza A bronchitis with possible aspiration pneumonia Patient is currently on 5 L of oxygen, on 4 L of oxygen at home, will continue breathing treatment, continue to wean off oxygen to home O2 level Respiratory therapy to assist patient with vest therapy. 2. Acute influenza A bronchitis, completed Tamiflu, will switch to prednisone taper possibly tomorrow if he improves. 3. Aspiration pneumonia, stable vitals, being followed by speech therapy, aspiration risk, on IV Zosyn( day 2) Switch to oral Augmentin for total of 7 days of antibiotics 4. Acvute diarrhea, resolving, C. difficile negative, FOBT negative, will continue to monitor 5. Nicotine dependence, on replacement 6. History of DVT/PE, on Coumadin, INR therapeutic at 2.6 7. H/o seizures, on Depakote 8. Hypertension, controlled 9. DVT PPx-on Coumadin, INR is therapeutic, 10. Disposition - Possible DC tomorrow home with [facility] vs SNF Code Visit Inpatient E&M: 08144 Subs Hosp L2
[2018-05-09] MEDS: Acetaminophen 325 MG Tablet 650 MG PO (12:39)
--- NOTE | 2018-05-09 13:14 | CASEMGMT ---
Addendum entered by Florin Myers 05/09/18 14:30: Discussed DC Plan with pt. He states he spoke with his fiance on phone and they decided to return home. Referral has been sent to [facility] (see below). Awaiting their approval. Pt updated on Home Health Agency. Tari KEMP Original Note: Addendum entered by Florin Myers 05/09/18 14:02: Spoke with Dr. Brown re: recommendation for SNF. RANDY DAVIDSON spoke with patient who is reluctant for SNF placement, but after discussion re: medical progress, fatigue and weakness pt stated he will speak with his fiance. Tari KEMP Original Note: RANDY DAVIDSON Note- Intro role of CM to patient in room. discussed care needs for home. Pt states his shower is in basement and he won't be able to do stairs easily. Discussed sink side bathes until he is more stable. Discussed Home Health. Pt had not been agreeable earlier, but is agreeable now. States his is able to assist him @ home. Has oxygen concentrator, portability through [employer]. -Call to [place] [facility]-unable to accept. -Call to [facility]- clinicals faxed, they will review. PH: [phone] (ask for Home Health dept) FX: Tari KEMP
[2018-05-09] MEDS: Amox/Clavulanate 875 MG Tablet PO (17:49)
[2018-05-09] MEDS: Tamsulosin HCl 0.4 MG Capsule PO (17:50)
[2018-05-09] MEDS: Pravastatin 40 MG Tablet PO (21:13)
[2018-05-09] MEDS: Divalproex (ER) 500 MG Tablet 1000 MG PO (21:13)
[2018-05-10] VITALS (11 sets, daily range): BP systolic 127–137; BP diastolic 72–79; PULSE 63–89; RESP 12–20; TEMP 36.2–36.9; O2SAT 93–97
[2018-05-10] MEDS: Divalproex (ER) 500 MG Tablet PO (06:09)
[2018-05-10] MEDS: 0.9% NaCl Peripheral Flush Adult/Peds IV (06:09)
[2018-05-10] MEDS: Gabapentin 300 MG Capsule PO (06:10)
[2018-05-10 06:31] LABS: International Normalized Ratio 2.7; Prothrombin Time (Protime)PT. 28.6 SECONDS (11.7-14.9)
[2018-05-10] MEDS: Ipratropium/Albuterol Sulfate 3 ML AMPUL.NEB INHALATION ×2 (06:41→11:17)
[2018-05-10] MEDS: predniSONE 10 MG Tablet 40 MG PO (09:39)
[2018-05-10] MEDS: Furosemide 20 MG Tablet PO (09:39)
[2018-05-10] MEDS: guaiFENesin 1,200 MG Tablet 1200 MG PO (09:39)
[2018-05-10] MEDS: Amox/Clavulanate 875 MG Tablet PO (09:39)
[2018-05-10] MEDS: Varenicline 1 MG Tablet PO (09:39)
--- NOTE | 2018-05-10 10:10 | CASEMGMT ---
Addendum entered by Nikita Solano 05/10/18 12:29: Discharge orders are in. Call placed to Hanane Patel @ [facility]. She was notified pt being discharged today. She states start of care will be w/in the next 48 hrs. Discharge instructions and summary faxed to N @ [phone]. Original Note: RN STUART NOTE: RNSamia, notified this RN SUTART that pt asking if things are set up @ his home from [facility]. Call placed to [facility] and spoke with Radha. Radha confirms that they will be working with ASSISTANT OFFICE MANAGER Rupal Sanders @ [facility] re: Trilogy unit. They have received an order from Rupal Sanders for the Trilogy unit and are just awaiting clinical documentation before they can set it up. Pt currently has O2 @ 4 L/M thru [facility] @ home w/portability and also has BIPAP, but states would like a new BIPAP mask. Samia states she is aware pt's current BIPAP mask pt has been using @ [facility] will be sent home with pt on discharge. [facility]: Call placed to [facility] @ [phone] and spoke with Hanane. She states they are still able to take pt and she is aware of anticipated discharge today 05/10/18. Will return call to Hanane once discharge plans/date confirmed. RN to room to discuss above with pt. He was notified [facility] will contact pt re: setting up Trilogy in his home once they have all required documentation completed. He states he plans to make an appt with Dr Van's office once he is discharged. He was also made aware [facility] is still able to accept him for [facility] for start of care this week and he is still agreeable to same. Call placed to [facility] and referral cancelled. Radha BAÑUELOS RN CM
--- NOTE | 2018-05-10 11:08 | PCM.DC ---
- Discharge Diagnoses Current Active Problems: Current Active and Chronic Problems Tobacco use (Chronic) HTN (hypertension) (Chronic) Acute and chronic respiratory failure with hypoxia (Acute) Reason(s) for Visit for Discharge Instructions: Shortness of breath You will use the following diet at home:: Cardiac Your food should be the consistency of: Regular Your liquids should be the consistency of: Regular/Thin Discharge Activity: Return to Normal Activity Additional Instructions: You have been advised to quit smoking. Continue to wear your oxygen all the time. Complete your antibiotics. Continue to use your breathing treatments. Follow=up with your primary care doctor in 1-2 weeks. Allergies/Adverse Reactions: Allergies No Known Allergies Allergy (Verified 05/02/18 12:57) Medications to take at Discharge Albuterol Inhaler [Ventolin Hfa] 1 - 2 puff INHALATION Q4H PRN PRN 05/28/16 Gabapentin [Neurontin] 300 mg PO TID 05/28/16 Potassium Chloride [K-Dur] 10 meq PO TID 05/28/16 Acetaminophen [Tylenol] 650 mg PO Q6H PRN 12/12/17 Albuterol Sulfate [Proventil Hfa] 6.7 gm IH Q4H PRN 12/12/17 Nitroglycerin [Nitrostat] 0.4 mg SUBLINGUAL Q5M PRN 12/12/17 Oxygen, Home [Home Oxygen] 2 - 4 lpm NASAL DAILY 12/12/17 Varenicline [Chantix] 1 mg PO BID 12/12/17 Furosemide [Lasix] 20 mg PO BID 04/29/18 Tiotropium [place] [Spiriva 18 MCG] 2 puff INHALATION DAILY 04/29/18 Warfarin [Coumadin] 5 mg PO DAILY #1 tablet 04/29/18 Divalproex Sodium [Depakote ER] 1,000 mg PO QHS 05/02/18 Divalproex Sodium [Depakote ER] 500 mg PO 0700,1300 05/02/18 Guaifenesin [Mucinex] 600 mg PO BID 05/02/18 Mometasone/Formoterol [Dulera 200 Mcg/5 Mcg Inhaler] 2 puff INHALATION BID 05/02/18 Pravastatin Sodium 40 mg PO QHS 05/02/18 Acetaminophen [Tylenol Tablet] 650 mg PO Q6H PRN PRN tablet 05/10/18 Amox/Clavulanate Tablet [Augmentin Tablet] 875 mg PO BID #10 tablet 05/10/18 Lactobacillus Acidophilus [Acidophilus] 1 tablet PO TID #30 tablet 05/10/18 Prednisone 10 mg PO DAILY #30 tablet 05/10/18 The following prescriptions were given: Prednisone 10 mg PO DAILY #30 tablet Amox/Clavulanate Tablet [Augmentin Tablet] 875 mg PO BID #10 tablet Lactobacillus Acidophilus [Acidophilus] 1 tablet PO TID #30 tablet Primary Care Physician: Josefina Newby MD [Primary Care Provider] - Please follow up with your Primary Care Physician in: within 1-2 weeks Test Results: Test results from this visit will be discussed in further detail at your follow-up appointment, if applicable. Proposed Discharge Date: 05/10/18
--- NOTE | 2018-05-10 11:11 | PCM.DC.SUM ---
Discharge Date and Diagnosis Date of Admission: 05/02/18 Date of Discharge: 05/10/18 - Primary Discharge Diagnosis Active and Suspected Problems Acute and chronic respiratory failure with hypoxia (Acute) Acute influenza A bronchitis Aspiration pneumonia Dysphagia, on mechanical soft diet Acute diarrhea Nicotine dependence, recently quit - Secondary Discharge Diagnosis Chronic Problems COPD exacerbation (Chronic) Tobacco use (Chronic) HTN (hypertension) (Chronic) History of DVT (deep vein thrombosis) (Chronic) History of pulmonary embolism (Chronic) Seizure disorder (Chronic) COPD (chronic obstructive pulmonary disease) (Chronic) Hospital Course and Treatment Imaging Results: Clinical Impression(s) from Imaging Studies Chest X-Ray 05/02/18 13:40 IMPRESSION: Hyperinflation. Emphysematous changes worse in the upper lobes and more prominent on the right side. Electronically Signed: Mack Quintanilla, at 14:15 EST , Service support , Chest CT 05/03/18 11:58 IMPRESSION: Diffuse emphysema. No acute alveolar disease. Electronically Signed: Trell Sal MD at 13:14 EST Tel , Service support , Chest X-Ray 05/06/18 13:14 IMPRESSION: 1. Developing infiltrate in the right lower lobe. 2. Bullous emphysema. Electronically Signed: Eyal Burns MD at 15:32 EST , Service support , Videofluoroscopic Swallow 05/08/18 14:00 IMPRESSION: Transient penetration with ingestion of thin liquids. The swallow study findings were discussed with the patient by the speech pathologist at the conclusion of the examination. Please see speech pathology report for more information and recommendations. Electronically Signed: Mack Quintanilla, at 9:56 EST , Service support , None Operations: None Procedures: None Summary of Care Provided: 62-year-old male with past medical history of COPD, on chronic 4 L home oxygen, recently admitted and discharged with acute COPD exacerbation comes in with worsening shortness of breath found to have acute influenza A. Patient was managed as acute on chronic hypoxic respiratory failure secondary to acute influenza A bronchitis with possible aspiration pneumonia. He was seen by speech therapy and put on mechanical soft diet. He improved with breathing treatments, vest therapy, Tamiflu, IV antibiotics. He completed his Tamiflu in the hospital. He had episodes of diarrhea, stool for c. diff was negative. He was discharged on 5L oxygen. He was counselled to quit smoking. Subjective: On the day of his discharge, he felt well. Denies any fever or chills or SOB. Objective: Physical exam: General: Alert, Oriented x3, Cooperative, on 5L oxygen HEENT: Atraumatic, PERRLA, EOMI, Normocephalic Oral: Moist Mucosa Neck: Supple Lungs: Normal air movement, Diminished Cardiovascular: Regular rate, Regular Rhythm, Normal S1, Normal S2, No murmurs Abdomen: Bowel Sounds Present, Soft, Non Tender, Non-Distended, No Hepato-splenomegaly Extremities: No edema Skin: No rashes, No breakdown Musculoskeletal: No Tenderness to Palpation of Joints or Extremities Lymphatic: No Cervical, Supraclavicular, or Inguinal Adenopathy Neurological: Cranial nerves II-XII grossly intact, Neuro grossly intact Psych/Mental Status: Normal Affect, Appropriate - Physical Exam Vital Signs Temp Pulse Resp BP Pulse Ox 97.6 F L 73 16 128/75 H 94 05/10/18 06:07 05/10/18 06:41 05/10/18 06:41 05/10/18 06:07 05/10/18 06:41 Oxygen Flow Rate (L/min) 5 Oxygen Delivery Method Nasal Cannula Weight: 95.2 kg Body Mass Index (BMI) 30.9 Intake and Output for Last 24 Hours 05/08/18 05/09/18 05/10/18 23:59 23:59 23:59 Intake Total 2357 / 2357 1451 / 1451 1030 / 1030 Output Total 1600 / 1600 1200 / 1200 1575 / 1575 Balance 757 / 757 251 / 251 -545 / -545 Microbiology Past 72 Hours 05/08/18 06:20 Enteric Bacteriology - Final Stool 05/06/18 07:30 Gram Stain - Final Sputum, Expectorated/Coughed Respiratory Culture - Final Gram positive jan Mixed Jen 05/08/18 06:20 C. difficile DNA Amplification - Final Stool 05/08/18 06:20 Stool Lactoferrin - Final Stool 05/08/18 06:20 Stool Occult Blood (ARACELI) - Final Stool Laboratory Tests Past 24 Hrs 05/10/18 06:10 PT 28.6 H INR 2.7 Discharge Diet: Low fat/ Low Cholesterol, 2000 mg Sodium Diet Discharge Activity: Return to Normal Activity Home Medications: Medications to take at Discharge Albuterol Inhaler [Ventolin Hfa] 1 - 2 puff INHALATION Q4H PRN PRN 05/28/16 Gabapentin [Neurontin] 300 mg PO TID 05/28/16 Potassium Chloride [K-Dur] 10 meq PO TID 05/28/16 Acetaminophen [Tylenol] 650 mg PO Q6H PRN 12/12/17 Albuterol Sulfate [Proventil Hfa] 6.7 gm IH Q4H PRN 12/12/17 Nitroglycerin [Nitrostat] 0.4 mg SUBLINGUAL Q5M PRN 12/12/17 Oxygen, Home [Home Oxygen] 2 - 4 lpm NASAL DAILY 12/12/17 Varenicline [Chantix] 1 mg PO BID 12/12/17 Furosemide [Lasix] 20 mg PO BID 04/29/18 Tiotropium [place] [Spiriva 18 MCG] 2 puff INHALATION DAILY 04/29/18 Warfarin [Coumadin] 5 mg PO DAILY #1 tablet 04/29/18 Divalproex Sodium [Depakote ER] 1,000 mg PO QHS 05/02/18 Divalproex Sodium [Depakote ER] 500 mg PO 0700,1300 05/02/18 Guaifenesin [Mucinex] 600 mg PO BID 05/02/18 Mometasone/Formoterol [Dulera 200 Mcg/5 Mcg Inhaler] 2 puff INHALATION BID 05/02/18 Pravastatin Sodium 40 mg PO QHS 05/02/18 Acetaminophen [Tylenol Tablet] 650 mg PO Q6H PRN PRN tablet 05/10/18 Amox/Clavulanate Tablet [Augmentin Tablet] 875 mg PO BID #10 tablet 05/10/18 Lactobacillus Acidophilus [Acidophilus] 1 tablet PO TID #30 tablet 05/10/18 Prednisone 10 mg PO DAILY #30 tablet 05/10/18 Following Prescrptions Were Given to Patient: Prednisone 10 mg PO DAILY #30 tablet Amox/Clavulanate Tablet [Augmentin Tablet] 875 mg PO BID #10 tablet Lactobacillus Acidophilus [Acidophilus] 1 tablet PO TID #30 tablet Primary Care Physician: Josefina Newby MD [Primary Care Provider] - Please follow up with your Primary Care Physician in: within 1-2 weeks Disposition: Home Minutes spent on discharge:: 40 Patient Condition:: Stable Medical Necessity - Tobacco Use Smoking Status: Current every day smoker - Patient had previously been taking Chantix however recently started smoking approximately 4 cigarettes a day. Tobacco Use: Cigarettes Meaningful Use Info Meaningful Use Diagnoses (Choose all that apply): None applicable
[2018-05-10 14:38] LABS: Pathologist Review Reviewed
--- NOTE | 2018-05-11 15:35 | CASEMGMT ---
RANDY DAVIDSON Discharge Follow-Up Phone Call. Trini:?? 14? Strata: 4 Discharge Date: 05-10-18 Adm Dx:?? COPD Exac, Resp failure Call to pt to inquire about how??he?has been doing since being discharged from the hospital.? Pt stated, I'm feeling better, but just not 99%. Pt states he was able to get all of his prescriptions and has made follow-up appts with Dr Newby and his design technician. Pt states the [facility] agency is currently at his home going over all their stuff. Instructed pt to discuss any concerns he may have with [facility] nurse and also let pt know he could contact [facility] CM if he has questions or concerns. Radha BAÑUELOS RN, CM
== END 2018-05-10 13:51 | disposition home health service (06) | DRG 140 ==
LOC: ED 14:11 → MS2 15:43
PROVIDERS: Internal Medicine; Physician Assistant; Admitting Provider Family Medicine; Emergency Provider Emergency Medicine; Family Provider Internal Medicine; PCP Internal Medicine; Referring Provider Family Medicine; Visit Provider Internal Medicine
DX: J44.0 Chronic obstructive pulmonary disease with (acute) lower respiratory infection (principal); J96.21 Acute and chronic respiratory failure with hypoxia; J10.1 Influenza due to other identified influenza virus with other respiratory manifestations; Z99.81 Dependence on supplemental oxygen; J69.0 Pneumonitis due to inhalation of food and vomit; J44.1 Chronic obstructive pulmonary disease with (acute) exacerbation; E78.5 Hyperlipidemia, unspecified; G40.909 Epilepsy, unspecified, not intractable, without status epilepticus; E66.9 Obesity, unspecified; I10 Essential (primary) hypertension; Z68.30 Body mass index [BMI] 30.0-30.9, adult; Z86.711 Personal history of pulmonary embolism; Z79.01 Long term (current) use of anticoagulants; Z86.718 Personal history of other venous thrombosis and embolism; F17.210 Nicotine dependence, cigarettes, uncomplicated; G47.33 Obstructive sleep apnea (adult) (pediatric); G89.29 Other chronic pain; E87.6 Hypokalemia; R13.10 Dysphagia, unspecified; Z79.899 Other long term (current) drug therapy; R19.7 Diarrhea, unspecified
CPT/HCPCS: 36415; 36600; 71045; 71250; 71275; 74230; 80048; 80053; 80164; 81001; 82274; 82803; 83605; 83630; 83735; 84484; 85025; 85610; 85730; 87040; 87070; 87086; 87088; 87205; 87493; 87506; 87633; 87641; 87804; 92526; 92610; 92611; 93005; 94002; 94003; 94640; 94660; 94667; 94668; 96372; 96374; 97110; 97162; 97165; 97530; 97803; 99218; 99251; 99283; 99285; 99406; J7040; Q9967; A4216; G0378; G0463; J2405

== ENCOUNTER → 2018-06-26 09:08 | Outpatient (CLI) | payer MEDICAID, SELFPAY ==
[2018-05-02 16:09] VITALS: BMI 30.9
[2018-06-26 09:32] LABS: International Normalized Ratio 1.4; Prothrombin Time (Protime)PT. 17.4 SECONDS (11.7-14.9)
== END ==
PROVIDERS: Family Provider Internal Medicine; PCP Internal Medicine; Referring Provider Internal Medicine; Visit Provider Internal Medicine
DX: I26.90 Septic pulmonary embolism without acute cor pulmonale (principal)
CPT/HCPCS: 85610

== ENCOUNTER → 2018-06-27 08:39 | Outpatient (CLI) | payer MEDICAID, SELFPAY ==
[2018-05-02 16:09] VITALS: BMI 30.9
--- NOTE | 2018-06-27 09:25 | RAD_ITS ---
CLINICAL HISTORY: Male, 62 years old. Difficulty swallowing for several years. Fails food sticks in throat area. Bloating in abdomen area. PROCEDURE: Fluoroscopically guided, air-contrast, barium pill esophagram. FLUOROSCOPY TIME (if supplied): (2:28) minutes/seconds TECHNIQUE: The patient easily and readily swallowed effervescent crystals, a 13 mm barium pill and various density barium contrast. Multiple digital spot images were obtained during the course of the real-time exam. FINDINGS: Esophageal motility appears normal. There is no esophageal stricture, web or diverticulum. There is no intrinsic or extrinsic esophageal mass or mass effect. The esophageal mucosal pattern appears unremarkable. The stomach is appropriately positioned demonstrating normal morphology and rotation. There is no intrinsic or extrinsic gastric mass or mass effect. There is mildly suboptimal contrast coating of the gastric mucosa for unknown reasons. However no gross gastric mucosal abnormality is identified. Contrast readily exit of the gastric outlet into unremarkable appearing duodenal bulb and proximal duodenal C-sweep. RAD/Upper GI Series Only IMPRESSION: No fluoroscopically evident pathology. Electronically Signed: Aris Cannon MD at 11:36 EDT , Service support ,
== END ==
PROVIDERS: Family Provider Internal Medicine; PCP Internal Medicine; Referring Provider Nurse Practitioner Adult Health; Visit Provider Nurse Practitioner Adult Health
DX: K30 Functional dyspepsia (principal); R68.81 Early satiety
CPT/HCPCS: 74246

== ENCOUNTER 2018-07-15 12:31 | Emergency (ER) | payer MEDICAID, SELFPAY ==
[2018-05-02 16:09] VITALS: BMI 30.9
[2018-07-15 12:32] VITALS: BP 143/103; PULSE 111; RESP 22; TEMP 37.1; O2SAT 95; BMI 31.4
[2018-07-15 12:35] VITALS: O2SAT 95
--- NOTE | 2018-07-15 12:45 | ED.RN ---
PT ASKING FOR [facility] TO BE NOTIFIED. [facility] CALLED AT [phone], PER PATIENT REQUEST. [facility] UPDATED THAT PATIENT WAS HERE AND AWAITING TEST RESULTS.
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
[2018-07-15 13:29] LABS: Absolute Lymphocyte Count 2.91 X10^3/ul (0.83-4.51); Absolute Neutrophil Count 7.2 X10^3/uL (2.0-7.7); Basophil# 0.03 X10^3/uL; Basophil% 0.3 % (0-1); Eosinophil# 0.06 X10^3/uL; Eosinophils% 0.5 % (0-5); Hematocrit 49.4 % (40-54); Hemoglobin 16.9 g/dl (13.0-16.5); Lymphocyte # 2.91 X10^3/ul (4.0); Lymphocyte % 25.4 % (19-41); Mean Corp Hgb Conc 34.2 g/gl (32-36); Mean Corpuscular Hgb 34.1 pg (27.0-32.0); Mean Corpuscular Volume 99.8 fL (80-94); Mean Platelet Vol. 9.9 fl (6.2-12.0); Monocyte# 1.09 X10^3/uL; Monocyte% 9.5 % (0-10); Neutrophil # 7.21 X10^3/uL (2.7-7.7); Neutrophil % 62.8 % (47-70); Platelet Count 197 K/mm3 (150-450); RBC Distribution Width CV 12.7 % (11.6-14.6); RBC Distribution Width SD 46.5 fl (35.1-43.9); Red Blood Count 4.95 M/mm3 (4.6-6.2); White Blood Count 11.5 K/mm3 (4.4-11.0)
[2018-07-15 13:30] LABS: POSITIVE COUNT NO; POSITIVE DIFFERENTIAL NO; POSITIVE MORPHOLOGY NO
[2018-07-15] MEDS: fentaNYL 100 MCG/2 ML Ampul 50 MCG IV ×2 (13:31→15:08)
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
[2018-07-15 13:39] LABS: International Normalized Ratio 2.3; Prothrombin Time (Protime)PT. 25.7 SECONDS (11.7-14.9)
[2018-07-15 13:44] LABS: Anion Gap 11 (5-15); BUN 9 mg/dL (7-18); BUN/Creat Ratio 9.9 RATIO (10-20); Calcium,Total 9.4 mg/dL (8.5-10.1); Chloride 99 mmol/L (98-107); Creatinine, Serum 0.91 mg/dL (0.70-1.30); EST Glomerular Filtration Rate 90 mL/min (>60); Est Glom Filt Rate - Afr Amer 109 mL/min (>60); Estimated Creatinine Clearance 86.32 ml/min; Glucose 112 mg/dL (74-106); Potassium 4.1 mmol/L (3.5-5.1); Sodium Level 140 mmol/L (136-145)
[2018-07-15 14:07] LABS: Alcohol, Blood (Medical)-Serum < 3.0 mg/dL
[2018-07-15 14:29] LABS: Valproic Acid (Depakene) Level 92 ug/mL (50-100)
[2018-07-15 14:31] VITALS: BP 133/87; PULSE 115; RESP 24; O2SAT 92
[2018-07-15 16:01] VITALS: BP 140/78; PULSE 108; O2SAT 94
--- NOTE | 2018-07-15 16:16 | NURSING ---
[facility]
--- NOTE | 2018-07-15 16:45 | NURSING ---
[facility] FOR TRANSPORT, ETA IS HALF HOUR
[2018-07-15 16:51] VITALS: BP 133/83; PULSE 109; RESP 18; O2SAT 94
[2018-07-15 16:57] LABS: Amphetamine Urine VISTA NEGATIVE (<1000 ng/mL); Barbiturate Urine VISTA NEGATIVE (< 200 ng/mL); Benzodiazepine Urine VISTA NEGATIVE (< 200 ng/mL); Cocaine Urine VISTA NEGATIVE (< 300 ng/mL); Ecstacy Urine VISTA NEGATIVE (< 500 ng/mL); Methadone Urine VISTA NEGATIVE (< 300 ng/mL); PCP Urine VISTA NEGATIVE (< 25 ng/mL); THC Urine VISTA NEGATIVE (< 50 ng/mL); Vista UDS pH Range 6
--- NOTE | 2018-07-15 16:58 | ED.RN ---
ATTEMPTED TO CALL [facility] AGAIN PER PATIENT REQUEST. NO ANSWER AND NOT ABLE TO LEAVE MESSAGE. WILL TRY AGAIN.
--- NOTE | 2018-07-15 17:14 | ED.RN ---
TRANSPORT AT BEDSIDE, REPORT GIVEN. DENIES QUESTIONS OR NEEDS. ASSISTED IN GETTING PATIENT OVER TO EMS C[facility].
== END 2018-07-15 17:22 | disposition short-term general hospital (02) ==
LOC: ED 12:57
PROVIDERS: Emergency Provider Emergency Medicine; Family Provider Internal Medicine; PCP Internal Medicine
DX: S22.41XA Multiple fractures of ribs, right side, initial encounter for closed fracture (principal); V49.50XA Passenger injured in collision with unspecified motor vehicles in traffic accident, initial encounter; Y93.89 Activity, other specified; Y92.9 Unspecified place or not applicable; I25.10 Atherosclerotic heart disease of native coronary artery without angina pectoris; I10 Essential (primary) hypertension; J44.9 Chronic obstructive pulmonary disease, unspecified; Z99.81 Dependence on supplemental oxygen; Z86.718 Personal history of other venous thrombosis and embolism; Z79.01 Long term (current) use of anticoagulants; Z86.711 Personal history of pulmonary embolism; Z79.899 Other long term (current) drug therapy; Z72.0 Tobacco use
CPT/HCPCS: 70450; 71260; 72125; 72128; 72131; 73521; 73590; 74177; 80048; 80164; 80307; 80320; 85025; 85610; 96374; 96376; 99285; Q9967; A4216; G0480

== ENCOUNTER 2018-08-02 12:55 | Emergency (ER) | payer MEDICAID, SELFPAY ==
[2018-08-02 12:56] VITALS: BP 124/97; BP 127/96; PULSE 105; RESP 18; TEMP 37; O2SAT 97; BMI 32.3
--- NOTE | 2018-08-02 13:27 | RAD_ITS ---
STUDY: X-RAY CHEST REASON FOR EXAM: Male, 63 years old. Shortness of breath. Bilateral lower extremity swelling and pain. Hemoptysis. TECHNIQUE: Single AP portable view of the chest. COMPARISON: Comparison is made with prior study dated May 06, 2018. FINDINGS: EKG electrodes are seen. Increased bronchovascular markings in both lungs worse in the right upper lobe suggestive of emphysema. There is no demonstrated pleural abnormality. Normal size heart. Normal mediastinum and angie. Normal visualized pulmonary arteries. There is atherosclerotic calcification of the aortic arch with tortuosity. Normal visualized thoracic spine. There is evidence of nondisplaced fractures of the right fifth sixth seventh and eighth ribs. There is no demonstrated abnormality of the visualized soft tissue structures of the upper abdomen. RAD/Chest 1 View (Portable) IMPRESSION: Hyperinflation. Emphysematous changes. Nondisplaced fractures of the right fifth, sixth seventh and eighth ribs. Electronically Signed: Mack Quintanilla, at 13:58 EDT , Service support ,
--- NOTE | 2018-08-02 13:27 | EKG12_ITS ---
Test Reason : EDEMA Blood Pressure : / mmHG Vent. Rate : 101 BPM Atrial Rate : 101 BPM P-R Int : 144 ms QRS Dur : 092 ms QT Int : 368 ms P-R-T Axes : 080 068 073 degrees QTc Int : 477 ms Sinus tachycardia Otherwise normal ECG Confirmed by RUSSEL AVILES, YARELI ([id number]), editor trade journal ANDREW DAVIS ([id number] on 08/07/2018 12:56:30 PM Referred By: TREVIN Confirmed By:YARELI GOODE MD
[2018-08-02 13:53] LABS: Absolute Lymphocyte Count 2.51 X10^3/ul (0.83-4.51); Absolute Neutrophil Count 6.6 X10^3/uL (2.0-7.7); Basophil# 0.02 X10^3/uL; Basophil% 0.2 % (0-1); Eosinophil# 0.07 X10^3/uL; Eosinophils% 0.7 % (0-5); Hematocrit 41.2 % (40-54); Hemoglobin 13.4 g/dl (13.0-16.5); Lymphocyte # 2.51 X10^3/ul (4.0); Lymphocyte % 23.7 % (19-41); Mean Corp Hgb Conc 32.5 g/gl (32-36); Mean Corpuscular Hgb 34.6 pg (27.0-32.0); Mean Corpuscular Volume 106.5 fL (80-94); Mean Platelet Vol. 9.7 fl (6.2-12.0); Monocyte# 1.24 X10^3/uL; Monocyte% 11.7 % (0-10); Neutrophil # 6.57 X10^3/uL (2.7-7.7); POSITIVE COUNT NO; POSITIVE DIFFERENTIAL NO; POSITIVE MORPHOLOGY NO; Platelet Count 362 K/mm3 (150-450); RBC Distribution Width CV 14.5 % (11.6-14.6); RBC Distribution Width SD 54.9 fl (35.1-43.9); Red Blood Count 3.87 M/mm3 (4.6-6.2); White Blood Count 10.6 K/mm3 (4.4-11.0)
[2018-08-02 14:03] LABS: Anion Gap 8 (5-15); BUN 16 mg/dL (7-18); BUN/Creat Ratio 24.8 RATIO (10-20); Chloride 100 mmol/L (98-107); Creatinine, Serum 0.64 mg/dL (0.70-1.30); EST Glomerular Filtration Rate 134 mL/min (>60); Est Glom Filt Rate - Afr Amer 162 mL/min (>60); Estimated Creatinine Clearance 121.21 ml/min; Glucose 92 mg/dL (74-106); Potassium 4.3 mmol/L (3.5-5.1); Sodium Level 140 mmol/L (136-145)
[2018-08-02] MEDS: Morphine 4 MG/ML Syringe IV (14:06)
[2018-08-02 14:07] LABS: International Normalized Ratio 0.9; Prothrombin Time (Protime)PT. 12.1 SECONDS (11.7-14.9)
[2018-08-02 14:20] LABS: BNP,B-Type NATRIURETIC PEPTIDE 5.9 pg/mL (0-100)
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
--- NOTE | 2018-08-02 15:00 | ED.DEP ---
ED Disposition - Plan for ED Patient: Disposition: Home or Assisted Living Instructions: ED Leg Swelling Bilateral Referrals: Josefina Newby MD [Primary Care Provider] -
[2018-08-02] MEDS: fentaNYL 100 MCG/2 ML Ampul 50 MCG IV (15:16)
[2018-08-02] MEDS: Furosemide 40 MG Tablet PO (15:16)
[2018-08-02 15:24] VITALS: BP 123/80; BP 123/81; PULSE 102; RESP 17; RESP 18; O2SAT 94
== END 2018-08-02 15:54 | disposition home or self-care (01) ==
PROVIDERS: Emergency Provider Emergency Medicine; Family Provider Internal Medicine; PCP Internal Medicine
DX: R60.0 Localized edema (principal); V89.2XXA Person injured in unspecified motor-vehicle accident, traffic, initial encounter; R06.02 Shortness of breath; G40.909 Epilepsy, unspecified, not intractable, without status epilepticus; Z99.81 Dependence on supplemental oxygen; Z86.718 Personal history of other venous thrombosis and embolism; Z79.01 Long term (current) use of anticoagulants; Z79.899 Other long term (current) drug therapy
CPT/HCPCS: 71045; 80048; 83880; 84484; 85025; 85610; 93005; 96374; 96375; 99285; A4216

== ENCOUNTER 2018-08-13 16:12 | Inpatient (IN) | payer MEDICAID, SELFPAY ==
[2018-08-13] VITALS (10 sets, daily range): BP systolic 112–152; BP diastolic 62–103; PULSE 93–113; RESP 12–28; TEMP 36.8–37.3; O2SAT 92–98; BMI 31.3; BMI 31.1; BMI 31.2
--- NOTE | 2018-08-13 16:49 | EKG12_ITS ---
Test Reason : SOB Blood Pressure : / mmHG Vent. Rate : 102 BPM Atrial Rate : 102 BPM P-R Int : 150 ms QRS Dur : 092 ms QT Int : 354 ms P-R-T Axes : 079 071 077 degrees QTc Int : 461 ms Sinus tachycardia Otherwise normal ECG Confirmed by ADITHYA AVILES, JOSSELINE ([id number]), editorial specialist ROCKY MILLER ([id number]) on 08/15/2018 8:08:35 AM Referred By: Savannah Saldana Confirmed By:JOSSELINE HAJI MD
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
[2018-08-13 17:01] LABS: Absolute Lymphocyte Count 2.57 X10^3/ul (0.83-4.51); Absolute Neutrophil Count 2.4 X10^3/uL (2.0-7.7); Basophil# 0.01 X10^3/uL; Basophil% 0.2 % (0-1); Eosinophil# 0.14 X10^3/uL; Eosinophils% 2.3 % (0-5); Hematocrit 40.4 % (40-54); Hemoglobin 13.6 g/dl (13.0-16.5); Lymphocyte # 2.57 X10^3/ul (4.0); Lymphocyte % 42.5 % (19-41); Mean Corp Hgb Conc 33.7 g/gl (32-36); Mean Corpuscular Hgb 35.1 pg (27.0-32.0); Mean Corpuscular Volume 104.1 fL (80-94); Mean Platelet Vol. 9.6 fl (6.2-12.0); Monocyte# 0.88 X10^3/uL; Monocyte% 14.5 % (0-10); Neutrophil % 39.7 % (47-70); POSITIVE COUNT NO; POSITIVE DIFFERENTIAL NO; POSITIVE MORPHOLOGY NO; Platelet Count 202 K/mm3 (150-450); RBC Distribution Width CV 13.9 % (11.6-14.6); RBC Distribution Width SD 52.2 fl (35.1-43.9); Red Blood Count 3.88 M/mm3 (4.6-6.2); White Blood Count 6.1 K/mm3 (4.4-11.0)
[2018-08-13 17:09] LABS: Prothrombin Time (Protime)PT. 35.5 SECONDS (11.7-14.9)
[2018-08-13 17:10] LABS: International Normalized Ratio 3.5
[2018-08-13] MEDS: Albuterol 2.5 MG/3 ML VIAL.NEB. INHALATION ×3 (17:11→20:44)
[2018-08-13] MEDS: Ipratropium/Albuterol Sulfate 3 ML AMPUL.NEB INHALATION (17:11)
[2018-08-13 17:17] LABS: Anion Gap 5 (5-15); BUN 5 mg/dL (7-18); BUN/Creat Ratio 7.8 RATIO (10-20); Chloride 100 mmol/L (98-107); Creatinine, Serum 0.64 mg/dL (0.70-1.30); EST Glomerular Filtration Rate 136 mL/min (>60); Est Glom Filt Rate - Afr Amer 164 mL/min (>60); Estimated Creatinine Clearance 121.21 ml/min; Glucose 96 mg/dL (74-106); Potassium 3.5 mmol/L (3.5-5.1); Sodium Level 141 mmol/L (136-145)
[2018-08-13 17:28] LABS: Valproic Acid (Depakene) Level 104 ug/mL (50-100)
[2018-08-13] MEDS: Morphine 4 MG/ML Syringe IV (17:44)
[2018-08-13] MEDS: Ondansetron 4 MG/2 ML Vial IV (17:44)
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
[2018-08-13] MEDS: MethylPREDNISolone 125 MG/2 ML Vial IV (20:43)
[2018-08-13] MEDS: 0.9% Normal Saline 1,000 ML 100 ML IV (22:15)
[2018-08-13 22:18] LABS: Magnesium 1.7 mg/dL (1.6-2.6)
[2018-08-13] MEDS: Cefazolin 1 GM/50 ML BAG IV (22:51)
[2018-08-13] MEDS: Furosemide 20 MG Tablet PO (22:53)
[2018-08-13] MEDS: guaiFENesin 1,200 MG Tablet 1200 MG PO (22:53)
[2018-08-13] MEDS: Pravastatin 40 MG Tablet PO (22:54)
[2018-08-13] MEDS: Gabapentin 300 MG Capsule PO (22:55)
[2018-08-13] MEDS: HYDROcodone Bitartrate/Apap 5/325 Tablet PO (23:20)
[2018-08-14] VITALS (13 sets, daily range): BP systolic 116–142; BP diastolic 51–75; PULSE 82–100; RESP 12–26; TEMP 36.2–36.8; O2SAT 92–98
[2018-08-14] MEDS: Cefazolin 1 GM/50 ML BAG IV ×3 (05:56→21:45)
[2018-08-14] MEDS: Gabapentin 300 MG Capsule PO ×3 (05:57→21:44)
[2018-08-14] MEDS: HYDROcodone Bitartrate/Apap 5/325 Tablet PO ×3 (06:00→18:46)
[2018-08-14 06:01] LABS: Absolute Lymphocyte Count 0.73 X10^3/ul (0.83-4.51); Absolute Neutrophil Count 2.2 X10^3/uL (2.0-7.7); Hematocrit 39.7 % (40-54); Hemoglobin 12.9 g/dl (13.0-16.5); Lymphocyte # 0.73 X10^3/ul (4.0); Lymphocyte % 25.1 % (19-41); Mean Corp Hgb Conc 32.5 g/gl (32-36); Mean Corpuscular Hgb 34.2 pg (27.0-32.0); Mean Corpuscular Volume 105.3 fL (80-94); Mean Platelet Vol. 9.7 fl (6.2-12.0); Monocyte# 0.02 X10^3/uL; Monocyte% 0.7 % (0-10); Neutrophil # 2.15 X10^3/uL (2.7-7.7); Neutrophil % 73.9 % (47-70); Platelet Count 183 K/mm3 (150-450); RBC Distribution Width CV 13.4 % (11.6-14.6); RBC Distribution Width SD 50.2 fl (35.1-43.9); Red Blood Count 3.77 M/mm3 (4.6-6.2); White Blood Count 2.9 K/mm3 (4.4-11.0)
[2018-08-14 06:05] LABS: POSITIVE COUNT NO; POSITIVE DIFFERENTIAL NO; POSITIVE MORPHOLOGY NO
[2018-08-14 06:33] LABS: International Normalized Ratio 3.1; Prothrombin Time (Protime)PT. 32.4 SECONDS (11.7-14.9)
[2018-08-14 06:34] LABS: Anion Gap 11 (5-15); BUN 9 mg/dL (7-18); BUN/Creat Ratio 12.4 RATIO (10-20); Chloride 102 mmol/L (98-107); Creatinine, Serum 0.73 mg/dL (0.70-1.30); EST Glomerular Filtration Rate 117 mL/min (>60); Est Glom Filt Rate - Afr Amer 141 mL/min (>60); Estimated Creatinine Clearance 106.27 ml/min; Glucose 175 mg/dL (74-106); Sodium Level 144 mmol/L (136-145)
[2018-08-14] MEDS: Divalproex (ER) 500 MG Tablet PO ×2 (06:52→12:47)
[2018-08-14] MEDS: Ipratropium/Albuterol Sulfate 3 ML AMPUL.NEB INHALATION ×4 (07:11→19:50)
[2018-08-14] MEDS: guaiFENesin 1,200 MG Tablet 1200 MG PO ×2 (08:29→21:44)
[2018-08-14] MEDS: Furosemide 20 MG Tablet PO ×2 (08:29→21:43)
--- NOTE | 2018-08-14 09:43 | NURSING ---
wound photo: right martell
[2018-08-14 11:40] LABS: M R Staph aureus DNA By PCR POSITIVE (Negative); Probe Check PASS; Staph aureus DNA By PCR POSITIVE (Negative)
[2018-08-14] MEDS: 0.9% NaCl Peripheral Flush Adult/Peds IV ×3 (12:47→21:55)
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
[2018-08-14] MEDS: Divalproex (ER) 500 MG Tablet 1000 MG PO (21:44)
[2018-08-14] MEDS: Pravastatin 40 MG Tablet PO (21:45)
[2018-08-14] MEDS: Morphine 2 MG/ML Syringe IV (21:55)
[2018-08-15] VITALS (10 sets, daily range): BP systolic 105–136; BP diastolic 61–78; PULSE 82–93; RESP 12–22; TEMP 36.1–36.7; O2SAT 90–98
[2018-08-15] MEDS: Gabapentin 300 MG Capsule PO ×3 (06:05→21:43)
[2018-08-15] MEDS: Cefazolin 1 GM/50 ML BAG IV (06:05)
[2018-08-15] MEDS: Divalproex (ER) 500 MG Tablet PO ×2 (06:06→13:45)
[2018-08-15] MEDS: HYDROcodone Bitartrate/Apap 5/325 Tablet PO ×2 (06:06→13:45)
[2018-08-15 06:50] LABS: Absolute Lymphocyte Count 1.22 X10^3/ul (0.83-4.51); Absolute Neutrophil Count 7.1 X10^3/uL (2.0-7.7); Hematocrit 38.9 % (40-54); Hemoglobin 12.8 g/dl (13.0-16.5); Lymphocyte # 1.22 X10^3/ul (4.0); Lymphocyte % 13.6 % (19-41); Mean Corp Hgb Conc 32.9 g/gl (32-36); Mean Corpuscular Hgb 34.4 pg (27.0-32.0); Mean Corpuscular Volume 104.6 fL (80-94); Mean Platelet Vol. 10.1 fl (6.2-12.0); Monocyte# 0.53 X10^3/uL; Monocyte% 5.9 % (0-10); Neutrophil # 7.13 X10^3/uL (2.7-7.7); Neutrophil % 79.8 % (47-70); Platelet Count 179 K/mm3 (150-450); RBC Distribution Width CV 13.6 % (11.6-14.6); Red Blood Count 3.72 M/mm3 (4.6-6.2); White Blood Count 8.9 K/mm3 (4.4-11.0)
[2018-08-15 07:06] LABS: POSITIVE COUNT NO; POSITIVE DIFFERENTIAL NO; POSITIVE MORPHOLOGY NO
[2018-08-15] MEDS: Ipratropium/Albuterol Sulfate 3 ML AMPUL.NEB INHALATION ×4 (07:35→19:06)
[2018-08-15] MEDS: Ondansetron 4 MG/2 ML Vial IV (08:02)
[2018-08-15] MEDS: 0.9% NaCl Peripheral Flush Adult/Peds IV ×2 (08:03→10:22)
[2018-08-15] MEDS: guaiFENesin 1,200 MG Tablet 1200 MG PO ×2 (08:03→21:43)
[2018-08-15] MEDS: Furosemide 20 MG Tablet PO ×2 (08:03→18:00)
[2018-08-15] MEDS: Morphine 2 MG/ML Syringe IV ×2 (10:22→23:32)
[2018-08-15] MEDS: Magnesium Hydroxide 30 ML UDC PO (11:05)
--- NOTE | 2018-08-15 11:12 | PCM.RX.CS ---
Consult Pharmacy has been consulted to manage selected antiobiotic: Vancomycin Type of Consult: New start Suspected Infection: Skin/Soft tissue Prior Doses of Antibiotics Received/Current Regimen: NONE Labs: Sodium 144 mmol/L (136-145) 08/14/18 05:30 Potassium 4.0 mmol/L (3.5-5.1) 08/14/18 05:30 Chloride 102 mmol/L (98-107) 08/14/18 05:30 Carbon Dioxide 31.0 mmol/L (21.0-32.0) 08/14/18 05:30 Anion Gap 11 (5-15) 08/14/18 05:30 BUN 9 mg/dL (7-18) 08/14/18 05:30 Creatinine 0.73 mg/dL (0.70-1.30) 08/14/18 05:30 Est GFR (MDRD) Af Amer 141 mL/min (>60) 08/14/18 05:30 Est GFR (MDRD) Non-Af 117 mL/min (>60) 08/14/18 05:30 BUN/Creatinine Ratio 12.4 RATIO (10-20) 08/14/18 05:30 Glucose 175 mg/dL (74-106) H 08/14/18 05:30 Microbiology: Microbiology 08/14/18 09:10 Wound - Leg, Right Gram Stain - Final 08/14/18 09:10 Wound - Leg, Right Wound Culture - Preliminary Staphylococcus aureus 08/14/18 07:35 Sputum, Expectorated/Coughed Gram Stain - Final 08/14/18 07:35 Sputum, Expectorated/Coughed Respiratory Culture - Preliminary 08/14/18 05:05 Mucosa - Nasopharyngeal Respiratory Panel (PCR) - Final Weight used for dosin.8 kg Estimated Creatinine Clearance: 106ML/HR Goal Trough: 15-20 mcg/mL Pharmacy Plan for Drug Dosing: Plan/Recommendations 1. Vancomycin loading dose 2000mg IV x 1 08/15/18 @1130 2. Schedule vancomycin 1250mg IV Q8H to start 08/15/18 @ 1930 3. Trough schedule prior to 4th total dose per protocol 08/16/18 @ 1100 4. Pharmacy Service will continue to monitor and adjust dosing as required.
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
[2018-08-15] MEDS: Pravastatin 40 MG Tablet PO (21:43)
[2018-08-15] MEDS: Divalproex (ER) 500 MG Tablet 1000 MG PO (21:43)
[2018-08-16] VITALS (8 sets, daily range): BP systolic 121–149; BP diastolic 70–79; PULSE 80–91; RESP 12–22; TEMP 36.3–36.4; O2SAT 93–97
[2018-08-16] MEDS: HYDROcodone Bitartrate/Apap 5/325 Tablet PO (04:52)
[2018-08-16] MEDS: Gabapentin 300 MG Capsule PO (06:10)
[2018-08-16] MEDS: Divalproex (ER) 500 MG Tablet PO (06:10)
[2018-08-16 06:28] LABS: Prothrombin Time (Protime)PT. 56.7 SECONDS (11.7-14.9)
[2018-08-16 06:38] LABS: International Normalized Ratio 6.3
[2018-08-16] MEDS: Ipratropium/Albuterol Sulfate 3 ML AMPUL.NEB INHALATION ×2 (07:13→10:52)
--- NOTE | 2018-08-16 08:58 | DCINST_ITS ---
You will use the following diet at home:: Cardiac Your food should be the consistency of: Regular Your liquids should be the consistency of: Regular/Thin Discharge Activity: Return to Normal Activity Call your doctor if you observe: Fever of 101 or Higher, Shortness of breath, Dizziness, Fainting spells, Swelling in the ankles, Chest pain, Increased palpitations (irregular heartbeat) Allergies/Adverse Reactions: Allergies No Known Allergies Allergy (Verified 08/13/18 16:13) Medications to take at Discharge Albuterol Inhaler [Ventolin Hfa] 1 - 2 puff INHALATION Q4H PRN PRN 05/28/16 Gabapentin [Neurontin] 300 mg PO TID 05/28/16 Potassium Chloride [K-Dur] 10 meq PO TID 05/28/16 Albuterol Sulfate [Proventil Hfa] 6.7 gm IH Q4H PRN 12/12/17 Nitroglycerin (INPATIENT USE) [Nitrostat] 0.4 mg SUBLINGUAL Q5M PRN 12/12/17 Oxygen, Home [Home Oxygen] 2 - 4 lpm NASAL DAILY 12/12/17 Furosemide [Lasix] 20 mg PO BID 04/29/18 Tiotropium [place] [Spiriva 18 MCG] 2 puff INHALATION DAILY 04/29/18 Divalproex Sodium [Depakote ER] 1,000 mg PO QHS 05/02/18 Divalproex Sodium [Depakote ER] 500 mg PO 0700,1300 05/02/18 Pravastatin Sodium 40 mg PO QHS 05/02/18 Acetaminophen [Tylenol Tablet] 650 mg PO Q6H PRN PRN tablet 05/10/18 Lactobacillus Acidophilus [Acidophilus] 1 tablet PO TID #30 tablet 05/10/18 Guaifenesin [Mucinex] 600 mg PO BID 07/15/18 Ergocalciferol (Vitamin D2) [Vitamin D2] 50 mcg PO QWEEK 08/02/18 Mometasone/Formoterol [Dulera 200 Mcg/5 Mcg Inhaler] 2 puff IH BID 08/02/18 Doxycycline 100 mg PO BID #20 capsule 08/16/18 Prednisone [Deltasone] 40 mg PO DAILY #14 tablet 08/16/18 Warfarin Sodium 7.5 mg PO SUWETHFRSA #0 08/16/18 Warfarin [Coumadin] 10 mg PO MOTU #0 08/16/18 The following prescriptions were given: Prednisone [Deltasone] 40 mg PO DAILY #14 tablet Doxycycline 100 mg PO BID #20 capsule Primary Care Physician: Josefina Newby MD [Primary Care Provider] - Please follow up with your Primary Care Physician in: 3-5 days Test Results: Test results from this visit will be discussed in further detail at your follow- up appointment, if applicable. Please Follow Up With: Wound Care Center When: 1 week
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
--- NOTE | 2018-08-16 09:05 | PCA ---
made apt for [facility] and [facility]
[2018-08-16] MEDS: guaiFENesin 1,200 MG Tablet 1200 MG PO (09:12)
[2018-08-16] MEDS: Furosemide 20 MG Tablet PO (09:12)
--- NOTE | 2018-08-16 09:24 | NURSING ---
pt states he would like hospital van to transport him home- social work/case management aware- states nursing needs to arrange. transportation set up for 1200. pt aware and will order early meal tray. has his own portable o2 tank for transport home.
--- NOTE | 2018-08-16 09:37 | PCA ---
MADE APT FOR PRIMARY CARE BUT THE WOUND CENTER IS CLOSED SO GAVE PATIENT INFO TO MAKE THEMSELVES
--- NOTE | 2018-08-16 10:26 | NURSING ---
wound photo: right martell
[2018-08-16 12:11] LABS: Vancomycin, Trough Level 14.7 ug/mL (5.0-15.0)
--- NOTE | 2018-08-17 15:06 | CASEMGMT ---
RN CM DC PHONE CALL DC DATE: 08/16/18 DC Disposition: Home LACE/STRATA: 14/4 Attempted call to home, call did not go through with given number. Tari NOVAKN RN ACM
== END 2018-08-16 12:00 | disposition home health service (06) | DRG 140 ==
LOC: ED 17:48 → MS3 21:42
PROVIDERS: Admitting Provider Family Medicine; Emergency Provider Emergency Medicine; Family Provider Internal Medicine; PCP Internal Medicine; Referring Provider Family Medicine; Visit Provider Family Medicine
DX: J44.1 Chronic obstructive pulmonary disease with (acute) exacerbation (principal); J96.21 Acute and chronic respiratory failure with hypoxia; L03.115 Cellulitis of right lower limb; E66.9 Obesity, unspecified; G40.909 Epilepsy, unspecified, not intractable, without status epilepticus; Z68.31 Body mass index [BMI] 31.0-31.9, adult; Z99.81 Dependence on supplemental oxygen; S22.43XD Multiple fractures of ribs, bilateral, subsequent encounter for fracture with routine healing; Z86.711 Personal history of pulmonary embolism; E78.5 Hyperlipidemia, unspecified; V89.2XXD Person injured in unspecified motor-vehicle accident, traffic, subsequent encounter; I10 Essential (primary) hypertension; Z86.718 Personal history of other venous thrombosis and embolism; Z79.01 Long term (current) use of anticoagulants; Z87.891 Personal history of nicotine dependence
CPT/HCPCS: 36415; 71045; 80048; 80164; 80202; 83735; 84484; 85025; 85610; 87070; 87077; 87186; 87205; 87633; 87640; 93005; 94002; 94003; 94640; 94667; 94668; 97162; 97166; 97530; 97802; 99285; J7030; J7040; J7050; A4216; J2405

== ENCOUNTER → 2018-08-18 16:27 | Outpatient (CLI) | payer MEDICAID, SELFPAY ==
[2018-08-13 21:47] VITALS: BMI 31.1
[2018-08-18 16:50] LABS: International Normalized Ratio 3.1; Prothrombin Time (Protime)PT. 31.7 SECONDS (11.7-14.9)
== END ==
PROVIDERS: Family Provider Internal Medicine; PCP Internal Medicine; Referring Provider Internal Medicine; Visit Provider Internal Medicine
DX: I26.99 Other pulmonary embolism without acute cor pulmonale (principal)
CPT/HCPCS: 85610

== ENCOUNTER → 2018-08-25 12:23 | Outpatient (CLI) | payer MEDICAID, SELFPAY ==
[2018-08-24 11:03] VITALS: BMI 31.7
[2018-08-25 12:45] LABS: Prothrombin Time (Protime)PT. 12.7 SECONDS (11.7-14.9)
== END ==
PROVIDERS: Family Provider Internal Medicine; PCP Internal Medicine; Referring Provider Internal Medicine; Visit Provider Internal Medicine
DX: I26.99 Other pulmonary embolism without acute cor pulmonale (principal)
CPT/HCPCS: 85610

== ENCOUNTER 2018-08-31 10:00 | Outpatient (RCR) | payer MEDICAID, SELFPAY ==
[2018-08-13 21:47] VITALS: BMI 31.1
[2018-08-24 11:03] VITALS: BP 121/84; PULSE 116; RESP 20; TEMP 36.6; BMI 31.7
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
[2018-08-31 09:52] VITALS: BP 112/84; PULSE 113; RESP 18; TEMP 36.9; BMI 31.7
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
== END 2018-09-03 23:59 ==
LOC: WC 10:00
PROVIDERS: Family Provider Internal Medicine; PCP Internal Medicine; Visit Provider Podiatrist
DX: L97.812 Non-pressure chronic ulcer of other part of right lower leg with fat layer exposed (principal); M79.661 Pain in right lower leg; R60.0 Localized edema; J44.9 Chronic obstructive pulmonary disease, unspecified; Z86.718 Personal history of other venous thrombosis and embolism; E78.5 Hyperlipidemia, unspecified; I10 Essential (primary) hypertension; Z87.891 Personal history of nicotine dependence; J96.11 Chronic respiratory failure with hypoxia; G40.909 Epilepsy, unspecified, not intractable, without status epilepticus; Z79.899 Other long term (current) drug therapy; Z99.81 Dependence on supplemental oxygen; Z79.01 Long term (current) use of anticoagulants; Z86.711 Personal history of pulmonary embolism
CPT/HCPCS: 11042; 99202; G0463

== ENCOUNTER → 2018-09-04 12:22 | Outpatient (CLI) | payer MEDICAID, SELFPAY ==
[2018-08-31 09:52] VITALS: BMI 31.7
[2018-09-04 12:42] LABS: Prothrombin Time (Protime)PT. 36.7 SECONDS (11.7-14.9)
[2018-09-04 12:52] LABS: International Normalized Ratio 3.7
== END ==
PROVIDERS: Family Provider Internal Medicine; PCP Internal Medicine; Referring Provider Internal Medicine; Visit Provider Internal Medicine
DX: I26.99 Other pulmonary embolism without acute cor pulmonale (principal)
CPT/HCPCS: 85610

== ENCOUNTER → 2018-09-18 | Outpatient (CLI) | payer MEDICAID, SELFPAY ==
[2018-09-14 10:18] VITALS: BMI 31.7
[2018-09-18 13:00] LABS: Prothrombin Time (Protime)PT. 38.4 SECONDS (11.7-14.9)
[2018-09-18 13:03] LABS: International Normalized Ratio 3.9
== END | disposition home or self-care (01) ==
LOC: LABSPEC 12:33
PROVIDERS: Family Provider Internal Medicine; PCP Internal Medicine; Referring Provider Internal Medicine; Visit Provider Internal Medicine
DX: Z86.718 Personal history of other venous thrombosis and embolism (principal)
CPT/HCPCS: 85610

== ENCOUNTER → 2018-09-25 12:07 | Outpatient (CLI) | payer MEDICAID, SELFPAY ==
[2018-09-21 10:05] VITALS: BMI 31.7
[2018-09-25 12:39] LABS: Prothrombin Time (Protime)PT. 31.3 SECONDS (11.7-14.9)
== END ==
PROVIDERS: Family Provider Internal Medicine; PCP Internal Medicine; Referring Provider Internal Medicine; Visit Provider Internal Medicine
DX: I26.99 Other pulmonary embolism without acute cor pulmonale (principal)
CPT/HCPCS: 85610

== ENCOUNTER 2018-09-28 10:30 | Outpatient (RCR) | payer MEDICAID, SELFPAY ==
[2018-09-04 01:08] VITALS: BP 112/84; PULSE 113; RESP 18; TEMP 36.9
[2018-09-06 11:11] VITALS: BP 144/78; PULSE 100; RESP 20; TEMP 36.9; BMI 31.7
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
[2018-09-14 10:18] VITALS: BP 135/68; PULSE 100; RESP 22; TEMP 36.1; BMI 31.7
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
[2018-09-21 10:05] VITALS: BP 134/86; PULSE 100; RESP 20; TEMP 36.6; BMI 31.7
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
[2018-09-28 10:13] VITALS: BP 131/71; PULSE 96; RESP 20; TEMP 36.1; BMI 31.7
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
== END 2018-10-04 23:59 ==
LOC: WC 10:30
PROVIDERS: Family Provider Internal Medicine; PCP Internal Medicine; Visit Provider Podiatrist
DX: L97.812 Non-pressure chronic ulcer of other part of right lower leg with fat layer exposed (principal); M79.661 Pain in right lower leg; R60.0 Localized edema; J44.9 Chronic obstructive pulmonary disease, unspecified; E78.5 Hyperlipidemia, unspecified; I10 Essential (primary) hypertension; J96.11 Chronic respiratory failure with hypoxia; G40.909 Epilepsy, unspecified, not intractable, without status epilepticus; Z86.718 Personal history of other venous thrombosis and embolism; Z87.891 Personal history of nicotine dependence; S81.831S Puncture wound without foreign body, right lower leg, sequela; W26.8XXS Contact with other sharp object(s), not elsewhere classified, sequela
CPT/HCPCS: 11042

== ENCOUNTER → 2018-10-09 12:58 | Outpatient (CLI) | payer MEDICAID, SELFPAY ==
[2018-10-05 09:38] VITALS: BMI 31.7
[2018-10-09 13:36] LABS: International Normalized Ratio 3.2; Prothrombin Time (Protime)PT. 33.1 SECONDS (11.7-14.9)
== END ==
PROVIDERS: Family Provider Internal Medicine; PCP Internal Medicine; Referring Provider Internal Medicine; Visit Provider Internal Medicine
DX: I26.99 Other pulmonary embolism without acute cor pulmonale (principal)
CPT/HCPCS: 85610

== ENCOUNTER 2018-10-12 10:00 | Outpatient (RCR) | payer MEDICAID, SELFPAY ==
[2018-10-05 01:02] VITALS: BP 131/71; PULSE 96; RESP 20; TEMP 36.1
[2018-10-05 09:38] VITALS: BP 111/66; PULSE 104; RESP 18; TEMP 36.7; O2SAT 94; BMI 31.7
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
[2018-10-12 10:16] VITALS: BP 136/90; PULSE 99; RESP 18; TEMP 36.6; BMI 31.7
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
== END 2018-11-04 23:59 ==
LOC: WC 10:00
PROVIDERS: Family Provider Internal Medicine; PCP Internal Medicine; Visit Provider Podiatrist
DX: L97.812 Non-pressure chronic ulcer of other part of right lower leg with fat layer exposed (principal); R60.0 Localized edema; J44.9 Chronic obstructive pulmonary disease, unspecified; E66.9 Obesity, unspecified; Z68.31 Body mass index [BMI] 31.0-31.9, adult; Z71.3 Dietary counseling and surveillance; Z86.718 Personal history of other venous thrombosis and embolism; I10 Essential (primary) hypertension; E78.5 Hyperlipidemia, unspecified; M79.661 Pain in right lower leg
CPT/HCPCS: 11042; 99212; G0463

== ENCOUNTER → 2018-10-23 10:00 | Outpatient (CLI) | payer MEDICAID, SELFPAY ==
[2018-10-12 10:16] VITALS: BMI 31.7
[2018-10-23 10:20] LABS: International Normalized Ratio 2.6
== END ==
PROVIDERS: Family Provider Internal Medicine; PCP Internal Medicine; Referring Provider Internal Medicine; Visit Provider Internal Medicine
DX: I26.99 Other pulmonary embolism without acute cor pulmonale (principal)
CPT/HCPCS: 85610

== ENCOUNTER → 2018-11-07 15:10 | Outpatient (CLI) | payer MEDICAID, SELFPAY ==
[2018-10-12 10:16] VITALS: BMI 31.7
[2018-11-07 15:30] LABS: International Normalized Ratio 2.4; Prothrombin Time (Protime)PT. 26.1 SECONDS (11.7-14.9)
== END ==
PROVIDERS: Family Provider Internal Medicine; PCP Internal Medicine; Referring Provider Internal Medicine; Visit Provider Internal Medicine
DX: I26.99 Other pulmonary embolism without acute cor pulmonale (principal)
CPT/HCPCS: 85610

== ENCOUNTER → 2018-11-23 15:24 | Outpatient (CLI) | payer MEDICAID, SELFPAY ==
[2018-11-23 15:59] LABS: Absolute Neutrophil Count 2.5 X10^3/uL (2.0-7.7); Basophil# 0.03 X10^3/uL; Basophil% 0.5 % (0-1); Eosinophils% 1.8 % (0-5); Hematocrit 43.2 % (40-54); Hemoglobin 14.3 g/dL (13.0-16.5); Lymphocyte % 40.8 % (19-41); Mean Corp Hgb Conc 33.1 g/dL (32-36); Mean Corpuscular Hgb 33.3 pg (27.0-32.0); Mean Corpuscular Volume 100.5 fL (80-94); Mean Platelet Vol. 10.2 fl (6.2-12.0); Monocyte% 12.4 % (0-10); NRBC Flagged by Analyzer 0 % (0-5); Neutrophil # 2.47 X10^3/uL (2.7-7.7); Neutrophil % 43.8 % (47-70); Platelet Count 165 K/mm3 (150-450); RBC Distribution Width CV 13.4 % (11.6-14.6); RBC Distribution Width SD 49.8 fl (35.1-43.9); White Blood Count 5.6 K/mm3 (4.4-11.0)
[2018-11-23 16:27] LABS: Vitamin B12 354 pg/mL (211-911); Vitamin D,25 Hydroxy 70.6 ng/mL (29.95-100.01)
[2018-11-23 16:28] LABS: Valproic Acid (Depakene) Level 87 ug/mL (50-100)
[2018-11-23 16:32] LABS: ALB/GLOB Ratio 0.7 RATIO (0.9-2.4); AST(SGOT) 21 U/L (15-37); Alanine Aminotransfer ALT/SGPT 19 U/L (16-61); Albumin, Serum 2.8 g/dL (3.2-5.0); Alkaline Phosphatase 93 U/L (45-117); Anion Gap 2 (5-15); BUN 7 mg/dL (7-18); Calcium,Total 8.9 mg/dL (8.5-10.1); Chloride 103 mmol/L (98-107); Creatinine, Serum 0.64 mg/dL (0.70-1.30); EST Glomerular Filtration Rate 136 mL/min (>60); Est Glom Filt Rate - Afr Amer 165 mL/min (>60); Globulin 4.2 g/dL (2.2-4.2); Glucose 101 mg/dL (74-106); Potassium 3.9 mmol/L (3.5-5.1); Sodium Level 139 mmol/L (136-145); Thyroid Stim Hormone (TSH) 1.24 uIU/mL (0.358-3.74)
== END ==
PROVIDERS: Family Provider Internal Medicine; PCP Internal Medicine; Referring Provider Nurse Practitioner Family; Visit Provider Nurse Practitioner Family
DX: R56.9 Unspecified convulsions (principal); R41.3 Other amnesia
CPT/HCPCS: 36415; 80053; 80164; 82140; 82306; 82607; 84443; 85025

== ENCOUNTER → 2018-12-13 10:09 | Outpatient (CLI) | payer MEDICAID, SELFPAY ==
--- NOTE | 2018-12-13 10:23 | MRI_ITS ---
STUDY: MRI BRAIN WITHOUT CONTRAST REASON FOR EXAM: Male, 63 years old. Memory loss, headache TECHNIQUE: Standardized multiplanar fat and water weighted pulse sequences were obtained. COMPARISON: Previous RI obtained on 02/23/2017, previous CT scan obtained on 07/15/2018. FINDINGS: Mild enlargement of the ventricles and extra-axial spaces consistent with age-related cerebral atrophy. Normal white matter tracts of the supratentorial brain. Normal bilateral basal ganglia. Normal thalami. There is no extra-axial fluid accumulation. Normal flow voids within the major intracranial circulation suggesting patency by spin echo criteria. Normal sella turcica, pituitary gland, infundibular stalk, optic chiasm and hypothalamus. Normal tectal plate and pineal gland. Normal midbrain, santos and medulla. Normal cerebellum. Normal basal cisterns. Normal bilateral temporal bones. Normal bilateral internal auditory canals. No demonstrated orbital abnormality, within the constraints of a routine brain study. Normal visualized paranasal sinuses. Normal calvarium and skull base. Normal visualized soft tissue structures. Normal visualized upper cervical spine. MRI/Brain without Contrast IMPRESSION: Mild age-related cerebral atrophy, which is unchanged. Electronically Signed: Irvin Rivas, at 12:15 EDT Tel , Service support ,
== END ==
PROVIDERS: Family Provider Internal Medicine; PCP Internal Medicine; Referring Provider Nurse Practitioner Family; Visit Provider Nurse Practitioner Family
DX: R41.3 Other amnesia (principal); R51 Headache
CPT/HCPCS: 70551

== ENCOUNTER 2019-01-04 15:01 | Inpatient (IN) | payer MEDICAID, SELFPAY ==
[2019-01-04] VITALS (12 sets, daily range): BP systolic 121–137; BP diastolic 68–99; PULSE 92–103; RESP 12–26; TEMP 36.4–37.2; O2SAT 93–99; BMI 30.5; BMI 29.4
--- NOTE | 2019-01-04 15:30 | EKG12_ITS ---
Test Reason : SOB Blood Pressure : / mmHG Vent. Rate : 097 BPM Atrial Rate : 097 BPM P-R Int : 166 ms QRS Dur : 092 ms QT Int : 348 ms P-R-T Axes : 070 056 064 degrees QTc Int : 441 ms Normal sinus rhythm Low voltage QRS (Limb Leads) Confirmed by RUSSEL AVILES, YARELI ([id number]), non linear editor ROCKY MILLER ([id number]) on 01/08/2019 9:32:41 AM Referred By: Matias Chong Confirmed By:YARELI GOODE MD
--- NOTE | 2019-01-04 15:30 | RAD_ITS ---
STUDY: X-RAY CHEST REASON FOR EXAM: Male, 63 years old. Shortness of breath TECHNIQUE: PA and lateral views of the chest. COMPARISON: August 13, 2018 FINDINGS: Cardiac silhouette unremarkable. Pulmonary vascularity unremarkable. Aorta unremarkable. Reidentified are increased interstitial markings predominately at the lung bases Upper abdomen unremarkable. Old bilateral rib fractures are also again noted. No pneumothorax. RAD/Chest PA and Lateral IMPRESSION: No focal pulmonary consolidation or pneumothorax. Similar appearance to the increased bibasilar interstitial markings which may indicate a primary pulmonary parenchymal process. Electronically Signed: Dariusz River, at 17:33 EDT Tel , Service support ,
--- NOTE | 2019-01-04 15:33 | ED.DCSUM_ITS ---
- ER Visit Summary Date of Service: 01/04/19 Chief Complaint: Shortness of breath History of Present Illness: The patient is a 63 M who presents with shortness of breath that is been getting worse over the past 2 days. Patient states he is coughing up some yellow sputum. Patient admits to subjective chills. Patient admits to some intermittent chest pain. Patient states this is dull and lasts a few minutes. Patient states he gets lightheaded with ambulation. Patient has been using his home oxygen and CPAP with minimal relief. Patient admits to some nausea and vomiting. Patient also admits to a sore throat. Physical Examination: Vital signs are stable except for mild tachycardia of 102. Patient is afebrile. Patient is in no acute distress. Oral mucosa is pink and moist. Neck is supple. Trachea is midline. There is no JVD noted. Heart was regular and slightly tachycardic. Lungs were diminished bilaterally. There is adequate respiratory effort noted. Abdomen is soft and nontender. Cranial nerves II through XII are intact. There are no focal motor or sensory deficits noted. Extremities are intact. There is no calf tenderness or edema. Test Results: CBC was normal. Basic metabolic profile was essentially within normal limits. Troponin was normal. PA and lateral chest x-ray was obtained. There are chronic changes. There is no acute infiltrate. EKG showed normal sinus rhythm with a rate of 97. There are no acute ST or T wave changes. Emergency Department Course and Treatment: Patient was placed on oxygen. Patient was given DuoNeb and albuterol aerosols here. Patient was feeling better on reevaluation. I attempted to ambulate the patient with a pulse oximeter. Patient's pulse oximetry readings dropped into the 80s with a low of 81. Case was discussed with the hospitalist. He will admit the patient to his service. Patient understood and was agreeable with the plan. All questions were answered. Disposition: Admit to hospital Impression: COPD exacerbation This note was generated with [employer] dictation software. It may contain incorrect words, spelling, and punctuation that were not noted in review of the chart pr ior to signing ED Disposition - Plan for ED Patient: Disposition: Acute Care Hospital [facility] Diagnosis: COPD (chronic obstructive pulmonary disease), COPD exacerbation
[2019-01-04] MEDS: Albuterol 2.5 MG/3 ML VIAL.NEB. INHALATION ×3 (15:43→15:56)
[2019-01-04 15:44] LABS: Absolute Lymphocyte Count 2.63 X10^3/uL (0.83-4.51); Absolute Neutrophil Count 1.5 X10^3/uL (2.0-7.7); Basophil# 0.02 X10^3/uL; Basophil% 0.4 % (0-1); Eosinophil# 0.08 X10^3/uL; Eosinophils% 1.7 % (0-5); Hemoglobin 14.8 g/dL (13.0-16.5); Lymphocyte # 2.63 X10^3/ul (4.0); Lymphocyte % 54.7 % (19-41); Mean Corp Hgb Conc 33.6 g/dL (32-36); Mean Corpuscular Hgb 34.1 pg (27.0-32.0); Mean Corpuscular Volume 101.4 fL (80-94); Mean Platelet Vol. 11.1 fl (6.2-12.0); Monocyte# 0.52 X10^3/uL; Monocyte% 10.8 % (0-10); NRBC Flagged by Analyzer 0 % (0-5); Neutrophil # 1.54 X10^3/uL (2.7-7.7); Platelet Count 156 K/mm3 (150-450); RBC Distribution Width CV 12.9 % (11.6-14.6); RBC Distribution Width SD 48.7 fl (35.1-43.9); Red Blood Count 4.34 M/mm3 (4.6-6.2); White Blood Count 4.8 K/mm3 (4.4-11.0)
[2019-01-04] MEDS: MethylPREDNISolone 125 MG/2 ML Vial 60 MG IV (15:54)
[2019-01-04 15:56] LABS: Anion Gap 6 (5-15); BUN 3 mg/dL (7-18); BUN/Creat Ratio 5.4 RATIO (10-20); Calcium,Total 9.2 mg/dL (8.5-10.1); Chloride 100 mmol/L (98-107); Creatinine, Serum 0.56 mg/dL (0.70-1.30); EST Glomerular Filtration Rate 158 mL/min (>60); Est Glom Filt Rate - Afr Amer 191 mL/min (>60); Estimated Creatinine Clearance 138.52 ml/min; Glucose 107 mg/dL (74-106); Potassium 4.4 mmol/L (3.5-5.1); Sodium Level 139 mmol/L (136-145)
--- NOTE | 2019-01-04 19:56 | HP.PCM_ITS ---
Problem List (1) COPD exacerbation Status: Acute (2) COPD (chronic obstructive pulmonary disease) Status: Chronic Qualifiers: COPD type: unspecified COPD Qualified Code(s): J44.9 - Chronic obstructive pulmonary disease, unspecified (3) HLD (hyperlipidemia) Status: Chronic Qualifiers: Hyperlipidemia type: unspecified Qualified Code(s): E78.5 - Hyperlipidemia, unspecified (4) HTN (hypertension) Status: Chronic Qualifiers: Hypertension type: essential hypertension Qualified Code(s): I10 - Essential (primary) hypertension (5) History of DVT (deep vein thrombosis) Status: Chronic (6) History of pulmonary embolism Status: Chronic (7) Lower extremity edema Status: Chronic (8) Seizure disorder Status: Chronic (9) Tobacco use Status: Chronic (10) Ulcer of right lower extremity with fat layer exposed Status: Chronic History of Present Illness Date of Admission: 01/04/19 Chief Complaint: shortness of breath The patient is a 63 year old M with a significant history of COPD; tobacco abuse; PE; bilateral lower extremity edema and DVT who presented to the emergency department with progressively worsening shortness of breath x3 days. Associated with symptoms is malaise; forgetfulness; sore throat and orthopnea. At baseline he uses 4 L of oxygen. Because of his symptoms he increased his oxygen to 5 L but still he had no relief. He reports chills and subjective fever. Further, he had productive cough of yellow sputum. At the emergency department on 4 L of oxygen with ambulation his oxygen saturation dropped to 81% so a consideration was made for admission. Past Medical History Past Medical History (Chronic Problems): Chronic Problems Tobacco use (Chronic) HTN (hypertension) (Chronic) HLD (hyperlipidemia) (Chronic) Ulcer of right lower extremity with fat layer exposed (Chronic) Lower extremity edema (Chronic) History of DVT (deep vein thrombosis) (Chronic) History of pulmonary embolism (Chronic) Seizure disorder (Chronic) COPD (chronic obstructive pulmonary disease) (Chronic) Allergies No Known Allergies Allergy (Verified 01/04/19 15:02) Home Medications: Ambulatory Orders Medication Instructions Recorded Albuterol Inhaler [Ventolin Hfa] 1 - 2 puff INHALATION Q4H PRN PRN 05/28/16 Gabapentin [Neurontin] 300 mg PO TID 05/28/16 Potassium Chloride [K-Dur] 10 meq PO TID 05/28/16 Nitroglycerin (INPATIENT USE) 0.4 mg SUBLINGUAL Q5M PRN 12/12/17 [Nitrostat] Furosemide [Lasix] 40 mg PO BREAKFAST 04/29/18 Divalproex Sodium [Depakote ER] 1,000 mg PO QHS 05/02/18 Divalproex Sodium [Depakote ER] 500 mg PO 0700,1300 05/02/18 Pravastatin Sodium 40 mg PO QHS 05/02/18 Acetaminophen [Tylenol Tablet] 650 mg PO Q6H PRN PRN tablet 05/10/18 Guaifenesin [Mucinex] 600 mg PO BID 07/15/18 Ergocalciferol (Vitamin D2) 50 mcg PO QWEEK 08/02/18 [Vitamin D2] Furosemide [Lasix] 20 mg PO LUNCH 01/04/19 Levetiracetam 500 mg PO BID 01/04/19 Mometasone/Formoterol [Dulera 200 1 puff IH BID 01/04/19 Mcg/5 Mcg Inhaler] Warfarin Sodium 7.5 mg PO MOFR 01/04/19 Warfarin [Coumadin] 5 mg PO SUTUWETHSA 01/04/19 Surgical History: appendectomy, - - Liver biopsy. Psychiatric History: No pertinent psych hx Smoking Status: Heavy Smoker (>10/day) Tobacco Use: Cigarettes - *Family History Maternal History Items: COPD, Heart Disease Paternal History Items: Unknown - Does not know his paternal medical history. Review of Systems Constitutional: Reports: Chills, Fever - subjective, Malaise. Denies: Weight Change HEENT: Denies: Head Aches, Sinus Congestion, Sinus Drainage Cardiovascular: Reports: Orthopnea, Paroxysmal Noc. Dyspnea. Denies: Chest Pain, Palpitations Respiratory: Reports: Cough, Sputum production. Denies: Shortness of breath at rest Gastrointestinal: Denies: Abdominal Pain, Nausea, Vomiting Genitourinary: Denies: Dysuria Musculoskeletal: Denies: Joint Pain, Joint Tenderness Skin: Denies: Rash, Wounds Neurological: Denies: Numbness, Tingling, Focal weakness Psychiatric: Denies: Anxiety, Depression, Homicidal Ideations, Suicidal Ideations Hematologic/ Lymphatic: Denies: Easy Bruising, Easy Bleeding VTE Information - Inpt Only VTE Present on Admission: No VTE Mechan Device Prophylaxis: None VTE Pharm Prophylaxis ordered?: No Reason prophylaxis not ordered:: Treatment Not Indicated - Patient is supratherapeutic on his home Coumadin. Patient Problems: Active and Suspected Problems COPD exacerbation (Acute) - Physical Exam Vitals/I&O's: Vital Signs Temp Pulse Resp BP Pulse Ox 98.6 F 103 H 20 H 129/82 H 93 01/04/19 19:00 01/04/19 19:30 01/04/19 19:30 01/04/19 19:30 01/04/19 19:30 Oxygen Flow Rate (L/min) 4 Oxygen Delivery Method Nasal Cannula Weight: 93.8 kg Body Mass Index (BMI) 30.5 General: Alert, Oriented x3, Cooperative HEENT: Atraumatic, PERRLA, EOMI, Normocephalic Neck: Supple, No JVD, Negative Carotid Bruits Lungs: No wheeze, No rales, Rhonchi Cardiovascular: Regular rate, No murmurs Abdomen: Bowel Sounds Present, Soft, Non Tender Extremities: Capillary Refill Less than 3 Seconds, Edema - 3+ bilateral feet and legs. Skin: No rashes, No breakdown Musculoskeletal: No Tenderness to Palpation of Joints or Extremities Neurological: Cranial nerves II-XII grossly intact Psych/Mental Status: Normal Affect, Appropriate Laboratory Results 01/04/19 15:10: WBC 4.8, RBC 4.34 L, Hgb 14.8, Hct 44.0, MCV 101.4 H, MCH 34.1 H , MCHC 33.6, RDW Std Deviation 48.7 H, RDW Coeff of Mohsen 12.9, Plt Count 156, MPV 11.1, Immature Gran % (Auto) 0.400, Neut % (Auto) 32.0 L, Lymph % (Auto) 54.7 H , [place] % (Auto) 10.8 H, Eos % (Auto) 1.7, Baso % (Auto) 0.4, Absolute Neuts (auto) 1.5 L, Absolute Lymphs (auto) 2.63, Nucleated RBC % 0 01/04/19 15:10: Sodium 139, Potassium 4.4, Chloride 100, Carbon Dioxide 33.0 H, Anion Gap 6, BUN 3 L, Creatinine 0.56 L, Estim Creat Clear Calc 138.52, Est GFR (MDRD) Af Amer 191, Est GFR (MDRD) Non-Af 158, BUN/Creatinine Ratio 5.4 L, Glucose 107 H, Calcium 9.2, Troponin I < 0.015 Assessment/Plan All Active Problems COPD exacerbation (Acute) The patient is a 63 year old M with a significant history of COPD; tobacco abuse; PE; bilateral lower extremity edema and DVT who presented to the emergency department with progressively worsening shortness of breath x3 days consistent with likely COPD exacerbation. COPD exacerbation CXR independently reviewed confirms no acute cardiopulmonary process Scheduled DuoNeb Albuterol as needed Received Solu-Medrol. Solu-Medrol continued Since patient reported subjective fever and chills at home azithromycin was ordered. Oxygen as needed PE/ DVT/aortic mechanical valve valve INR is 3.5. Hold Coumadin for now. Repeat INR in a.m. Bilateral leg edema Lasix continued DVT Prophylaxis Not indicated since patient is supratherapeutic on his home Coumadin. Code Visit Inpatient E&M: 68652 Init Hosp L3
[2019-01-04] MEDS: guaiFENesin 600 MG Tablet PO (22:08)
[2019-01-04] MEDS: Pravastatin 40 MG Tablet PO (22:08)
[2019-01-04 22:09] LABS: Prothrombin Time (Protime)PT. 35.2 SECONDS (11.7-14.9)
[2019-01-04] MEDS: Gabapentin 300 MG Capsule PO (22:09)
[2019-01-04] MEDS: Divalproex (ER) 500 MG Tablet 1000 MG PO (22:09)
[2019-01-04] MEDS: levETIRAcetam 500 MG Tablet PO (22:09)
[2019-01-04 22:11] LABS: International Normalized Ratio 3.5
[2019-01-04] MEDS: 0.9% Saline Lock 10 ML Syringe IV (22:15)
[2019-01-04] MEDS: Ipratropium/Albuterol Sulfate 3 ML AMPUL.NEB INHALATION (22:52)
[2019-01-04] MEDS: Azithromycin 250 MG Tablet 500 MG PO (23:56)
[2019-01-05] VITALS (13 sets, daily range): BP systolic 109–131; BP diastolic 63–81; PULSE 97–119; RESP 12–24; TEMP 36.1–37.1; O2SAT 89–96
[2019-01-05] MEDS: Ipratropium/Albuterol Sulfate 3 ML AMPUL.NEB INHALATION ×5 (02:18→23:20)
[2019-01-05] MEDS: Gabapentin 300 MG Capsule PO ×3 (05:09→22:36)
[2019-01-05] MEDS: 0.9% Saline Lock 10 ML Syringe IV ×2 (05:10→22:39)
[2019-01-05 06:53] LABS: Prothrombin Time (Protime)PT. 35.1 SECONDS (11.7-14.9)
[2019-01-05] MEDS: Divalproex (ER) 500 MG Tablet PO ×2 (07:01→12:32)
[2019-01-05 07:03] LABS: International Normalized Ratio 3.5
--- NOTE | 2019-01-05 07:18 | CPS ---
pt was increased to 5lpm per home O2 setting.....90% on 5.
--- NOTE | 2019-01-05 09:00 | PN_ITS ---
Patient Problems: Active and Suspected Problems COPD exacerbation (Acute) Subjective: Chief complaint: Follow-up after admission for acute COPD exacerbation. Patient seen and examined. No acute events overnight. He is still complaining of significant shortness of breath at rest with productive cough with clear sputum. He reported no improvement. He is afebrile, slightly tachycardic, blood pressure stable, pulse ox is 96% on 5 L. - Physical Exam Vitals/I&O's: Vital Signs Temp Pulse Resp BP Pulse Ox 98.1 F 113 H 24 H 131/75 H 96 01/05/19 08:46 01/05/19 08:46 01/05/19 08:46 01/05/19 08:46 01/05/19 08:46 Oxygen Flow Rate (L/min) 5 Oxygen Delivery Method Nasal Cannula Weight: 199 lb 4.766 oz Body Mass Index (BMI) 29.4 Intake and Output for Last 24 Hours 01/03/19 01/04/19 01/05/19 23:59 23:59 23:59 Intake Total 600 / 600 Output Total 625 / 625 Balance -25 / -25 General: Alert, Oriented x3, Cooperative, - - In moderate respiratory distress. HEENT: Atraumatic, PERRLA, EOMI, Normocephalic Oral: Moist Mucosa, No Gingival or Mucosal Lesions/ Ulcerations Neck: Supple, No JVD, Negative Carotid Bruits, Trachea Midline, Thyroid Normal Size and Texture Lungs: No rales, Diminished, Rhonchi, Short of Breath, Tachypneic, Wheezes, - - Markedly decreased sounds bilateral, occasional wheezes, bilateral rhonchi. Cardiovascular: Regular rate, Regular Rhythm, Normal S1, Normal S2, PMI Normal, - - Metallic click. Abdomen: Bowel Sounds Present, Soft, Non Tender, Non-Distended, No Hepato- splenomegaly Extremities: No clubbing, No cyanosis, Edema - Trace edema. Skin: No rashes, No breakdown Lymphatic: No Cervical, Supraclavicular, or Inguinal Adenopathy Neurological: Cranial nerves II-XII grossly intact, Motor Exam 5/5 strength throughout Psych/Mental Status: Normal Affect, Appropriate, Alert and oriented to time, place, person, mood and affect Microbiology Past 72 Hours 01/04/19 23:15 Mucosa - Nasopharyngeal Influenza Types A,B Direct FA (ARACELI) - Final Laboratory Results 01/04/19 15:10: WBC 4.8, RBC 4.34 L, Hgb 14.8, Hct 44.0, MCV 101.4 H, MCH 34.1 H , MCHC 33.6, RDW Std Deviation 48.7 H, RDW Coeff of Mohsen 12.9, Plt Count 156, MPV 11.1, Immature Gran % (Auto) 0.400, Neut % (Auto) 32.0 L, Lymph % (Auto) 54.7 H, [place] % (Auto) 10.8 H, Eos % (Auto) 1.7, Baso % (Auto) 0.4, Absolute Neuts (auto) 1.5 L, Absolute Lymphs (auto) 2.63, Nucleated RBC % 0 01/04/19 15:10: Sodium 139, Potassium 4.4, Chloride 100, Carbon Dioxide 33.0 H, Anion Gap 6, BUN 3 L, Creatinine 0.56 L, Estim Creat Clear Calc 138.52, Est GFR (MDRD) Af Amer 191, Est GFR (MDRD) Non-Af 158, BUN/Creatinine Ratio 5.4 L, Glucose 107 H, Calcium 9.2, Troponin I < 0.015 01/04/19 21:36: PT 35.2 H, INR 3.5 H* 01/05/19 05:43: PT 35.1 H, INR 3.5 H* Clinical Impression(s) from Imaging Studies Chest X-Ray 01/04/19 15:30 IMPRESSION: No focal pulmonary consolidation or pneumothorax. Similar appearance to the increased bibasilar interstitial markings which may indicate a primary pulmonary parenchymal process. Electronically Signed: Dariusz River, at 17:33 EDT Tel , Service support , Current Medications Acetaminophen (Tylenol) 650 mg PO Q6H PRN PRN PRN Reason: Pain Score 1-3/Temp > 100.7 F Albuterol Sulfate (Ventolin Aerosols) 2.5 mg INHALATION Q2H PRN PRN PRN Reason: SHORTNESS OF BREATH Albuterol/Ipratropium (Duoneb) 3 ml INHALATION Q4H.RT [place] Last Admin: 01/05/19 06:55 Dose: 3 ml Documented by: Azithromycin (Zithromax) 500 mg PO Q24@2200 [facility] Last Admin: 01/04/19 23:56 Dose: 500 mg Documented by: Dextrose (D50w Syringe) 0 gm IV X1 PRN; Protocol PRN Reason: Hypoglycemia Divalproex Sodium (Depakote Er) 500 mg PO 0700,1300 [facility] Last Admin: 01/05/19 07:01 Dose: 500 mg Documented by: Divalproex Sodium (Depakote Er) 1,000 mg PO QHS [facility] Last Admin: 01/04/19 22:09 Dose: 1,000 mg Documented by: Furosemide (Lasix) 40 mg PO BREAKFAST [place] Furosemide (Lasix) 20 mg PO LUNCH [facility] Gabapentin (Neurontin) 300 mg PO TID [facility] Last Admin: 01/05/19 05:09 Dose: 300 mg Documented by: Glucagon () 1 mg IM .X1 PRN PRN Reason: Hypoglycemia Guaifenesin (Mucinex) 600 mg PO BID [facility] Last Admin: 01/04/19 22:08 Dose: 600 mg Documented by: Levetiracetam (Keppra Tablet) 500 mg PO BID [facility] Last Admin: 01/04/19 22:09 Dose: 500 mg Documented by: Methylprednisolone (Solu-Medrol) 40 mg IV Q8 [facility] Last Admin: 01/05/19 05:09 Dose: 40 mg Documented by: Nutritional Formula (Lactose Free) (Ensure Enlive) 120 ml PO 4X/DAY [facility] Last Admin: 01/04/19 22:15 Dose: 120 ml Documented by: Ondansetron HCl (Zofran) 4 mg IV Q8H PRN PRN PRN Reason: NAUSEA/VOMITING Potassium Chloride (K-Dur) 10 meq PO TIDCM [facility] Pravastatin Sodium (Pravachol) 40 mg PO QHS [facility] Last Admin: 01/04/19 22:08 Dose: 40 mg Documented by: Sodium Chloride () 10 - 40 ml IV UD PRN PRN Reason: SALINE FLUSH Last Admin: 01/05/19 05:10 Dose: 10 ml Documented by: Medical Necessity - Tobacco Use Smoking Status: Current every day smoker Tobacco Use: Cigarettes Assessment/Plan All Active Problems COPD exacerbation (Acute) This is a 63 years old male patient presented to the emergency room because of worsening shortness of breath with productive cough with clear sputum and was found to have acute COPD exacerbation. #1 acute COPD exacerbation: Chest x-ray reviewed, no acute findings. Patient is on IV Solu-Medrol, IV Zithromax and bronchodilators. He reported no improvement of his symptoms. His routine blood work was unremarkable. EKG revealed no acute ischemic changes. Nasal swab for influenza A and B were negative. Plan to continue same treatment. #2 chronic respiratory failure: Chronically on 5 L of oxygen at home and he has been on 5 L here. He is dyspneic, tachypneic and distressed. Plan as above. #3 status post aortic valve replacement with prosthetic valve: On Coumadin, INR 3.5. Plan to check INR tomorrow morning again. #4 history of DVT/PE: Again, on Coumadin and INR is 3.5. #5 seizure disorder: Stable, continue Keppra. #6 hyperlipidemia: Continue statins. #7 chronic bilateral leg edema: Continue Lasix. #8 DVT prophylaxis: INR is 3.5. This note was generated with cartmi dictation software. It may contain incorrect words, spelling, and punctuation that were not noted in checking the note before signing. Code Visit Inpatient E&M: 74990 Subs Hosp L2
[2019-01-05] MEDS: Furosemide 40 MG Tablet PO (09:32)
[2019-01-05] MEDS: guaiFENesin 600 MG Tablet PO ×2 (09:33→22:36)
[2019-01-05] MEDS: levETIRAcetam 500 MG Tablet PO ×2 (09:33→22:37)
--- NOTE | 2019-01-05 11:34 | CASEMGMT ---
LW/POA forms both scanned into summary tab of [facility]. Chely Wills is listed as pt's healthcare POA. ERICKA Easton
[2019-01-05] MEDS: Furosemide 20 MG Tablet PO (12:31)
[2019-01-05] MEDS: Ondansetron 4 MG/2 ML Vial IV (15:21)
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
--- NOTE | 2019-01-05 22:34 | CPS ---
PT REFUSED TO PUT ON BIPAP FOR TONIGHT
[2019-01-05] MEDS: Divalproex (ER) 500 MG Tablet 1000 MG PO (22:37)
[2019-01-05] MEDS: Pravastatin 40 MG Tablet PO (22:38)
[2019-01-05] MEDS: Azithromycin 250 MG Tablet 500 MG PO (22:39)
[2019-01-05] MEDS: Acetaminophen 325 MG Tablet 650 MG PO (22:45)
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
[2019-01-06] VITALS (28 sets, daily range): BP systolic 107–130; BP diastolic 56–74; PULSE 80–115; RESP 12–30; TEMP 36.2–37.2; O2SAT 90–96
[2019-01-06] MEDS: Ipratropium/Albuterol Sulfate 3 ML AMPUL.NEB INHALATION ×5 (02:33→19:46)
[2019-01-06] MEDS: Albuterol 2.5 MG/3 ML VIAL.NEB. INHALATION ×2 (05:24→07:37)
[2019-01-06] MEDS: Gabapentin 300 MG Capsule PO ×3 (05:47→21:36)
[2019-01-06] MEDS: 0.9% Saline Lock 10 ML Syringe IV ×4 (05:50→21:43)
[2019-01-06] MEDS: Divalproex (ER) 500 MG Tablet PO ×2 (06:00→14:13)
[2019-01-06] MEDS: Acetaminophen 325 MG Tablet 650 MG PO ×2 (06:00→18:18)
[2019-01-06] MEDS: guaiFENesin 600 MG Tablet PO ×2 (07:25→21:36)
[2019-01-06] MEDS: levETIRAcetam 500 MG Tablet PO ×2 (07:26→21:36)
[2019-01-06] MEDS: Furosemide 40 MG Tablet PO (07:27)
--- NOTE | 2019-01-06 07:39 | NURSING ---
abelardo called @ [address] beck in room and requesting pt get a stat albuterol aerosol, he is also going to add mucomyst to regime
[2019-01-06 07:41] LABS: International Normalized Ratio 1.4; Prothrombin Time (Protime)PT. 17.1 SECONDS (11.7-14.9)
--- NOTE | 2019-01-06 08:12 | PN_ITS ---
Patient Problems: Active and Suspected Problems COPD exacerbation (Acute) Subjective: Chief complaint: Follow-up after admission for acute COPD exacerbation. Patient seen and examined. No acute events overnight. This morning, he complained of significant shortness of breath and wheezing. Nursing staff mentioned that he has been coughing for the last 3 to 4 hours continuously. He has been having difficulty expectorating sputum. He remained on 5 L of oxygen. Slightly tachycardic, blood pressure stable, pulse ox is 95% on 5 L. - Physical Exam Vitals/I&O's: Vital Signs Temp Pulse Resp BP Pulse Ox 98.1 F 110 H 26 H 109/56 L 95 01/06/19 08:11 01/06/19 08:11 01/06/19 08:11 01/06/19 07:37 01/06/19 08:11 Oxygen Flow Rate (L/min) 5 Oxygen Delivery Method Nasal Cannula Weight: 199 lb 4.766 oz Body Mass Index (BMI) 29.4 Intake and Output for Last 24 Hours 01/04/19 01/05/19 01/06/19 23:59 23:59 23:59 Intake Total 1300 / 1620 1020 / 1020 Output Total 1050 / 1600 1050 / 1050 Balance 250 / 20 -30 / -30 General: Alert, Oriented x3, Cooperative, - - Moderately short of breath, distress because of coughing. HEENT: Atraumatic, PERRLA, EOMI, Normocephalic Oral: Moist Mucosa, No Gingival or Mucosal Lesions/ Ulcerations Neck: Supple, No JVD, Negative Carotid Bruits, Trachea Midline, Thyroid Normal Size and Texture Lungs: No rales, Diminished, Rhonchi, Short of Breath, - - Markedly decreased breath sounds bilateral, bilateral end expiratory wheezes. Rhonchi. Cardiovascular: Regular rate, Regular Rhythm, Normal S1, Normal S2, PMI Normal, Tachycardic Abdomen: Bowel Sounds Present, Soft, Non Tender, Non-Distended, No Hepato- splenomegaly Extremities: No clubbing, No cyanosis, Edema Skin: No rashes, No breakdown Lymphatic: No Cervical, Supraclavicular, or Inguinal Adenopathy Neurological: Cranial nerves II-XII grossly intact, Neuro grossly intact Psych/Mental Status: Normal Affect, Appropriate Microbiology Past 72 Hours 01/04/19 23:15 Mucosa - Nasopharyngeal Influenza Types A,B Direct FA (ARACELI) - Final Laboratory Results 01/06/19 06:41: PT 17.1 H, INR 1.4 Current Medications Acetaminophen (Tylenol) 650 mg PO Q6H PRN PRN PRN Reason: Pain Score 1-3/Temp > 100.7 F Last Admin: 01/06/19 06:00 Dose: 650 mg Documented by: Acetylcysteine (Mucomyst) 800 mg INHALATION BID.RT [facility] Albuterol Sulfate (Ventolin Aerosols) 2.5 mg INHALATION Q2H PRN PRN PRN Reason: SHORTNESS OF BREATH Last Admin: 01/06/19 07:37 Dose: 2.5 mg Documented by: Albuterol/Ipratropium (Duoneb) 3 ml INHALATION Q4H.RT [facility] Last Admin: 01/06/19 06:38 Dose: 3 ml Documented by: Azithromycin (Zithromax) 500 mg PO Q24@2200 [facility] Last Admin: 01/05/19 22:39 Dose: 500 mg Documented by: Dextrose (D50w Syringe) 0 gm IV X1 PRN; Protocol PRN Reason: Hypoglycemia Divalproex Sodium (Depakote Er) 500 mg PO 0700,1300 [facility] Last Admin: 01/06/19 06:00 Dose: 500 mg Documented by: Divalproex Sodium (Depakote Er) 1,000 mg PO QHS [facility] Last Admin: 01/05/19 22:37 Dose: 1,000 mg Documented by: Furosemide (Lasix) 40 mg PO BREAKFAST [facility] Last Admin: 01/06/19 07:27 Dose: 40 mg Documented by: Furosemide (Lasix) 20 mg PO LUNCH [facility] Last Admin: 01/05/19 12:31 Dose: 20 mg Documented by: Gabapentin (Neurontin) 300 mg PO TID [facility] Last Admin: 01/06/19 05:47 Dose: 300 mg Documented by: Glucagon () 1 mg IM .X1 PRN PRN Reason: Hypoglycemia Guaifenesin (Mucinex) 600 mg PO BID [facility] Last Admin: 01/06/19 07:25 Dose: 600 mg Documented by: Levetiracetam (Keppra Tablet) 500 mg PO BID [facility] Last Admin: 01/06/19 07:26 Dose: 500 mg Documented by: Methylprednisolone (Solu-Medrol) 40 mg IV Q8 [facility] Last Admin: 01/06/19 05:47 Dose: 40 mg Documented by: Nicotine (Nicoderm Cq (Pbkc)) 21 mg TRANSDERM. DAILY [facility] Last Admin: 01/06/19 07:26 Dose: 21 mg Documented by: Nutritional Formula (Lactose Free) (Ensure Enlive) 120 ml PO 4X/DAY [facility] Last Admin: 01/06/19 07:26 Dose: 120 ml Documented by: Ondansetron HCl (Zofran) 4 mg IV Q8H PRN PRN PRN Reason: NAUSEA/VOMITING Last Admin: 01/05/19 15:21 Dose: 4 mg Documented by: Potassium Chloride (K-Dur) 10 meq PO TIDCM [facility] Last Admin: 01/06/19 07:23 Dose: 10 meq Documented by: Pravastatin Sodium (Pravachol) 40 mg PO QHS [facility] Last Admin: 01/05/19 22:38 Dose: 40 mg Documented by: Sodium Chloride () 10 - 40 ml IV UD PRN PRN Reason: SALINE FLUSH Last Admin: 01/06/19 05:50 Dose: 10 ml Documented by: Medical Necessity - Tobacco Use Smoking Status: Current every day smoker Tobacco Use: Cigarettes Assessment/Plan All Active Problems COPD exacerbation (Acute) This is a 63 years old male patient presented to the emergency room because of worsening shortness of breath with productive cough with clear sputum and was found to have acute COPD exacerbation. #1 acute COPD exacerbation: He is on IV Solu-Medrol, p.o. Zithromax and bronchodilators. Chest x-ray reviewed, no acute findings. Nasal swab for influenza a and B were negative. He remained on 5 L of oxygen, slightly tachycardic, blood pressure stable. Nasal swab for influenza a and B were negative. Sputum culture is pending. He reported no improvement of his symptoms . His routine blood work was unremarkable. EKG revealed no acute ischemic changes. Plan: Start Mucomyst inhalation twice daily, continue other treatments. #2 chronic respiratory failure: Chronically on 5 L of oxygen at home and he has been on 5 L here. He is dyspneic, tachypneic and distressed. Plan as above. #3 status post aortic valve replacement with prosthetic valve: Today's INR is 1.4, subtherapeutic. Coumadin was held because INR was 3.5 on 2 consecutive days. Plan: Resume Coumadin, start IV heparin drip weight-based protocol, recheck INR tomorrow morning. #4 history of DVT/PE: Again, on Coumadin and INR is 1.4, plan to start IV heparin drip as above. #5 seizure disorder: Stable, continue Keppra. #6 hyperlipidemia: Continue statins. #7 chronic bilateral leg edema: Continue Lasix. #8 DVT prophylaxis: INR is 1.4, plan as above. This note was generated with [employer] dictation software. It may contain incorrect words, spelling, and punctuation that were not noted in checking the note before signing. Code Visit Inpatient E&M: 59138 Subs Hosp L2
--- NOTE | 2019-01-06 08:39 | NURSING ---
Addendum entered by Sandra Mota 01/06/19 08:41: order changed to vial 5000units/1ml, ordered dose to be 6000 units =1.2 ml Original Note: Notified by Louise of need for clarification for loading dose of heparin. Clarified order for heparin loading dose with pharmacist- 10,000units /10ml received did not match protocol, order changed to 6000units/ml to match protocol.
--- NOTE | 2019-01-06 08:49 | NURSING ---
heparin just arrived from Rx
[2019-01-06 08:59] LABS: Partial Thromboplast Time 29.9 Seconds (24.1-36.2)
[2019-01-06] MEDS: HEPARIN/D5w 25,000 UNITS 25,000 UNITS/250 ML IV.SOLN. 0.1 UNITS IV (09:03)
[2019-01-06] MEDS: Heparin Injection (Vial) 5,000 UNIT/ML VIAL 6000 UNIT IV (09:04)
[2019-01-06] MEDS: Acetylcysteine 800 MG/4 ML VIAL.NEB. INHALATION (10:59)
[2019-01-06] MEDS: Furosemide 20 MG Tablet PO (14:12)
[2019-01-06 15:35] LABS: Partial Thromboplast Time 123.3 Seconds (24.1-36.2)
--- NOTE | 2019-01-06 16:27 | NURSING ---
APTT 123.3, notified RANDY Gil. Louise states she was already aware and adjusted according to protocol.
[2019-01-06] MEDS: Ondansetron 4 MG/2 ML Vial IV (18:17)
[2019-01-06] MEDS: Divalproex (ER) 500 MG Tablet 1000 MG PO (21:34)
[2019-01-06] MEDS: Azithromycin 250 MG Tablet 500 MG PO (21:38)
[2019-01-06] MEDS: Pravastatin 40 MG Tablet PO (21:38)
[2019-01-06 21:46] LABS: Partial Thromboplast Time 50.7 Seconds (24.1-36.2)
[2019-01-06] MEDS: Heparin 10,000 UNITS/10 ML Vial 1000 UNITS IV (22:19)
[2019-01-07] VITALS (25 sets, daily range): BP systolic 110–132; BP diastolic 61–81; PULSE 80–98; RESP 12–24; TEMP 36.4–37; O2SAT 93–99
[2019-01-07] MEDS: Ipratropium/Albuterol Sulfate 3 ML AMPUL.NEB INHALATION ×7 (01:19→23:01)
[2019-01-07] MEDS: HEPARIN/D5w 25,000 UNITS 25,000 UNITS/250 ML IV.SOLN. 10 UNITS IV (01:50)
[2019-01-07] MEDS: Acetaminophen 325 MG Tablet 650 MG PO (01:54)
[2019-01-07 04:24] LABS: Absolute Lymphocyte Count 1.31 X10^3/uL (0.83-4.51); Absolute Neutrophil Count 6.9 X10^3/uL (2.0-7.7); Basophil# 0.02 X10^3/uL; Basophil% 0.2 % (0-1); Hematocrit 39.2 % (40-54); Hemoglobin 12.7 g/dL (13.0-16.5); Lymphocyte # 1.31 X10^3/ul (4.0); Lymphocyte % 14.9 % (19-41); Mean Corp Hgb Conc 32.4 g/dL (32-36); Mean Corpuscular Hgb 33.4 pg (27.0-32.0); Mean Corpuscular Volume 103.2 fL (80-94); Monocyte# 0.42 X10^3/uL; Monocyte% 4.8 % (0-10); NRBC Flagged by Analyzer 0 % (0-5); Neutrophil # 6.88 X10^3/uL (2.7-7.7); Neutrophil % 78.3 % (47-70); Platelet Count 128 K/mm3 (150-450); RBC Distribution Width CV 13.1 % (11.6-14.6); RBC Distribution Width SD 49.5 fl (35.1-43.9); White Blood Count 8.8 K/mm3 (4.4-11.0)
[2019-01-07 04:26] LABS: International Normalized Ratio 1.2; Prothrombin Time (Protime)PT. 14.9 SECONDS (11.7-14.9)
[2019-01-07 04:28] LABS: Partial Thromboplast Time 65.3 Seconds (24.1-36.2)
[2019-01-07 04:29] LABS: Anion Gap 5 (5-15); BUN 14 mg/dL (7-18); BUN/Creat Ratio 24.4 RATIO (10-20); Calcium,Total 8.5 mg/dL (8.5-10.1); Chloride 98 mmol/L (98-107); Creatinine, Serum 0.57 mg/dL (0.70-1.30); EST Glomerular Filtration Rate 153 mL/min (>60); Est Glom Filt Rate - Afr Amer 186 mL/min (>60); Estimated Creatinine Clearance 136.09 ml/min; Glucose 151 mg/dL (74-106); Potassium 4.8 mmol/L (3.5-5.1); Sodium Level 136 mmol/L (136-145)
--- NOTE | 2019-01-07 05:06 | NURSING ---
Continue 1,000 units heparin per hour. aPTT 65.3.
[2019-01-07] MEDS: Gabapentin 300 MG Capsule PO ×3 (05:53→20:07)
[2019-01-07] MEDS: 0.9% Saline Lock 10 ML Syringe IV ×3 (05:58→20:06)
[2019-01-07] MEDS: Divalproex (ER) 500 MG Tablet PO ×2 (06:03→13:21)
[2019-01-07] MEDS: Acetylcysteine 800 MG/4 ML VIAL.NEB. INHALATION ×2 (06:47→19:37)
[2019-01-07] MEDS: guaiFENesin 600 MG Tablet PO ×2 (08:19→20:08)
[2019-01-07] MEDS: Furosemide 40 MG Tablet PO (08:19)
[2019-01-07] MEDS: levETIRAcetam 500 MG Tablet PO ×2 (08:20→20:08)
--- NOTE | 2019-01-07 08:32 | PCM.PROGNOTE ---
Patient Problems: Active and Suspected Problems COPD exacerbation (Acute) Subjective: Chief complaint: Follow-up after admission for acute COPD exacerbation. Patient seen and examined. No acute events overnight. Today, patient started to feel better, shortness of breath is minimally improved, still having cough but also improved. He remained on 5 L of oxygen. He was started on Mucomyst inhalation and he was able to expectorate some sputum. His other vital signs are stable. - Physical Exam Vitals/I&O's: Vital Signs Temp Pulse Resp BP Pulse Ox 97.8 F 80 24 H 120/71 94 01/07/19 08:02 01/07/19 08:06 01/07/19 08:06 01/07/19 08:02 01/07/19 08:06 Oxygen Flow Rate (L/min) 5 Oxygen Delivery Method Nasal Cannula Weight: 199 lb 4.766 oz Body Mass Index (BMI) 29.4 Intake and Output for Last 24 Hours 01/05/19 01/06/19 01/07/19 23:59 23:59 22:59 Intake Total 1300 / 1620 2024.89 / 2024.89 477.17 / 477.17 Output Total 1050 / 1600 2100 / 2100 925 / 925 Balance 250 / 20 -75.11 / -75.11 -447.83 / -447.83 General: Alert, Oriented x3, Cooperative, - - Mildly short of breath. HEENT: Atraumatic, PERRLA, EOMI, Normocephalic Oral: Moist Mucosa, No Gingival or Mucosal Lesions/ Ulcerations Neck: Supple, No JVD, Negative Carotid Bruits, Trachea Midline, Thyroid Normal Size and Texture Lungs: No rales, Diminished, Rhonchi, Wheezes, - - Decreased breath sounds bilateral, bilateral rhonchi, occasional wheezes. Cardiovascular: Regular rate, Regular Rhythm, Normal S1, Normal S2, PMI Normal Abdomen: Bowel Sounds Present, Soft, Non Tender, Non-Distended, No Hepato-splenomegaly Extremities: No clubbing, No cyanosis, Edema - Trace edema. Skin: No rashes, No breakdown Lymphatic: No Cervical, Supraclavicular, or Inguinal Adenopathy Neurological: Cranial nerves II-XII grossly intact, Neuro grossly intact Psych/Mental Status: Normal Affect, Appropriate, Alert and oriented to time, place, person, mood and affect Microbiology Past 72 Hours 11/01/19 12:30 Sputum, Expectorated/Coughed Gram Stain - Final 01/05/19 12:30 Sputum, Expectorated/Coughed Respiratory Culture - Preliminary Appears to be normal respiratory angelika. Further studies to follow. 01/04/19 23:15 Mucosa - Nasopharyngeal Influenza Types A,B Direct FA (ARACELI) - Final Laboratory Results 01/06/19 15:00: APTT 123.3 H* 01/06/19 21:30: APTT 50.7 H 01/07/19 03:56: WBC 8.8, RBC 3.80 L, Hgb 12.7 L, Hct 39.2 L, MCV 103.2 H, MCH 33.4 H, MCHC 32.4, RDW Std Deviation 49.5 H, RDW Coeff of Mohsen 13.1, Plt Count 128 L, MPV 11.0, Immature Gran % (Auto) 1.800 H, Neut % (Auto) 78.3 H, Lymph % (Auto) 14.9 L, Mchenry % (Auto) 4.8, Eos % (Auto) 0.0, Baso % (Auto) 0.2, Absolute Neuts (auto) 6.9, Absolute Lymphs (auto) 1.31, Nucleated RBC % 0 01/07/19 03:56: PT 14.9, INR 1.2, APTT 65.3 H 01/07/19 03:56: Sodium 136, Potassium 4.8, Chloride 98, Carbon Dioxide 33.0 H, Anion Gap 5, BUN 14, Creatinine 0.57 L, Estim Creat Clear Calc 136.09, Est GFR (MDRD) Af Amer 186, Est GFR (MDRD) Non-Af 153, BUN/Creatinine Ratio 24.4 H, Glucose 151 H, Calcium 8.5 Current Medications Acetaminophen (Tylenol) 650 mg PO Q6H PRN PRN PRN Reason: Pain Score 1-3/Temp > 100.7 F Last Admin: 01/07/19 01:54 EDT Dose: 650 mg Documented by: Acetylcysteine (Mucomyst) 800 mg INHALATION BID.RT [facility] Last Admin: 01/07/19 06:47 Dose: 800 mg Documented by: Albuterol Sulfate (Ventolin Aerosols) 2.5 mg INHALATION Q2H PRN PRN PRN Reason: SHORTNESS OF BREATH Last Admin: 01/06/19 07:37 Dose: 2.5 mg Documented by: Albuterol/Ipratropium (Duoneb) 3 ml INHALATION Q4H.RT [facility] Last Admin: 01/07/19 06:47 Dose: 3 ml Documented by: Azithromycin (Zithromax) 500 mg PO Q24@2200 [facility] Last Admin: 01/06/19 21:38 Dose: 500 mg Documented by: Dextrose (D50w Syringe) 0 gm IV X1 PRN; Protocol PRN Reason: Hypoglycemia Divalproex Sodium (Depakote Er) 500 mg PO 0700,1300 [facility] Last Admin: 01/07/19 06:03 Dose: 500 mg Documented by: Divalproex Sodium (Depakote Er) 1,000 mg PO QHS [facility] Last Admin: 01/06/19 21:34 Dose: 1,000 mg Documented by: Enoxaparin Sodium (Lovenox) 90 mg SC Q12@0600,1800 [facility] Furosemide (Lasix) 40 mg PO BREAKFAST [facility] Last Admin: 01/07/19 08:19 Dose: 40 mg Documented by: Furosemide (Lasix) 20 mg PO LUNCH [facility] Last Admin: 01/06/19 14:12 Dose: 20 mg Documented by: Gabapentin (Neurontin) 300 mg PO TID [facility] Last Admin: 01/07/19 05:53 Dose: 300 mg Documented by: Glucagon () 1 mg IM .X1 PRN PRN Reason: Hypoglycemia Guaifenesin (Mucinex) 600 mg PO BID [facility] Last Admin: 01/07/19 08:19 Dose: 600 mg Documented by: Levetiracetam (Keppra Tablet) 500 mg PO BID [facility] Last Admin: 01/07/19 08:20 Dose: 500 mg Documented by: Methylprednisolone (Solu-Medrol) 40 mg IV Q8 [facility] Last Admin: 01/07/19 05:56 Dose: 40 mg Documented by: Nicotine (Nicoderm Cq (Pbkc)) 21 mg TRANSDERM. DAILY [facility] Last Admin: 01/07/19 08:20 Dose: 21 mg Documented by: Nutritional Formula (Lactose Free) (Ensure Enlive) 120 ml PO 4X/DAY [facility] Last Admin: 01/07/19 08:19 Dose: 120 ml Documented by: Ondansetron HCl (Zofran) 4 mg IV Q8H PRN PRN PRN Reason: NAUSEA/VOMITING Last Admin: 01/06/19 18:17 Dose: 4 mg Documented by: Potassium Chloride (K-Dur) 10 meq PO TIDCM [facility] Last Admin: 01/07/19 08:19 Dose: 10 meq Documented by: Pravastatin Sodium (Pravachol) 40 mg PO QHS [facility] Last Admin: 01/06/19 21:38 Dose: 40 mg Documented by: Sodium Chloride () 10 - 40 ml IV UD PRN PRN Reason: SALINE FLUSH Last Admin: 01/07/19 05:58 Dose: 10 ml Documented by: Warfarin Sodium (Coumadin (Pbkc)) 7.5 mg PO MOFR [facility] Warfarin Sodium (Coumadin (Pbkc)) 5 mg PO SUTUWETHSA [facility] Last Admin: 01/06/19 16:22 Dose: 5 mg Documented by: Medical Necessity - Tobacco Use Smoking Status: Current every day smoker Tobacco Use: Cigarettes Assessment/Plan All Active Problems COPD exacerbation (Acute) This is a 63 years old male patient presented to the emergency room because of worsening shortness of breath with productive cough with clear sputum and was found to have acute COPD exacerbation. #1 acute COPD exacerbation: Remained on IV Solu-Medrol, p.o. Zithromax and bronchodilators including Mucomyst inhalation. Today, symptoms started to improve. Chest x-ray reviewed, no acute findings. Nasal swab for influenza a and B were negative. Remained stable on 5 L of oxygen, other vital signs are stable. Nasal swab for influenza a and B were negative. Sputum culture culture revealed normal respiratory angelika, final is pending. Routine blood work from today reviewed, unremarkable. EKG revealed no acute ischemic changes. Plan: Continue same treatment, possible DC home tomorrow. #2 chronic respiratory failure: Chronically on 5 L of oxygen at home and he has been on 5 L here. Symptoms started to improve. Plan as above. #3 history of DVT/PE: Patient was on Coumadin only for history of PE and DVT, never had a history of aortic valve replacement. Today's INR is 1.2. Plan: DC IV heparin drip, start subcu Lovenox twice daily, continue Coumadin, repeat INR tomorrow morning. #4 seizure disorder: Stable, continue Keppra. #5 hyperlipidemia: Continue statins. #6 chronic bilateral leg edema: Continue Lasix. #7 DVT prophylaxis: INR is 1.2, start subcu Lovenox as above. This note was generated with [employer] dictation software. It may contain incorrect words, spelling, and punctuation that were not noted in checking the note before signing. Code Visit Inpatient E&M: 18617 Subs Hosp L2
--- NOTE | 2019-01-07 08:32 | NURSING ---
Notified by RANDY Gil that patient does not have a mechanical valve and heparin stopped and lovenox to be ordered.
--- NOTE | 2019-01-07 11:43 | NURSING ---
on 01/06 @ 0903 when heparin started via pump, dose should have read on MAY 1199 units or 12/hr on 01/06 @ 1740 when heparin restarted via pump, dose should have refelected on MAY 900 units or 9 ml/hr these are the actual doses that the heparin premix was run at according to the policy, it wwould not allow nurse to correct what is reflected on MAR to the actual dose that is running
[2019-01-07] MEDS: Enoxaparin 100 MG/ML Syringe 90 MG SC ×2 (13:18→22:21)
[2019-01-07] MEDS: Furosemide 20 MG Tablet PO (13:20)
[2019-01-07] MEDS: Divalproex (ER) 500 MG Tablet 1000 MG PO (20:09)
[2019-01-07] MEDS: Pravastatin 40 MG Tablet PO (20:09)
[2019-01-07] MEDS: Azithromycin 250 MG Tablet 500 MG PO (20:16)
--- NOTE | 2019-01-07 23:31 | CPS ---
pt to be discharged tomorrow, has no bipap at home. om 5 lpm nasal o2 as at home
[2019-01-08] VITALS (19 sets, daily range): BP systolic 105–122; BP diastolic 62–75; PULSE 82–98; RESP 12–22; TEMP 36.5–37; O2SAT 94–98
[2019-01-08] MEDS: Ipratropium/Albuterol Sulfate 3 ML AMPUL.NEB INHALATION ×6 (02:39→23:10)
[2019-01-08 05:54] LABS: International Normalized Ratio 1.4; Prothrombin Time (Protime)PT. 17.3 SECONDS (11.7-14.9)
[2019-01-08] MEDS: 0.9% Saline Lock 10 ML Syringe IV ×3 (06:09→21:04)
[2019-01-08] MEDS: Gabapentin 300 MG Capsule PO ×3 (06:09→21:59)
[2019-01-08] MEDS: Divalproex (ER) 500 MG Tablet PO ×2 (06:10→14:05)
[2019-01-08] MEDS: Acetaminophen 325 MG Tablet 650 MG PO ×2 (06:11→18:06)
[2019-01-08] MEDS: Acetylcysteine 800 MG/4 ML VIAL.NEB. INHALATION ×2 (07:14→19:39)
--- NOTE | 2019-01-08 08:07 | PCM.PROGNOTE ---
Patient Problems: Active and Suspected Problems COPD exacerbation (Acute) Subjective: Chief complaint: Follow-up after admission for acute COPD exacerbation. Patient seen and examined. No acute events overnight. Symptoms continue to improve very slowly, still complaining of cough and wheezing. He does not think that he is back to his baseline. His pulse ox remained stable on 5 L of oxygen, other vitals are stable. - Physical Exam Vitals/I&O's: Vital Signs Temp Pulse Resp BP Pulse Ox 98.2 F 84 18 116/63 98 01/08/19 07:23 01/08/19 07:23 01/08/19 07:23 01/08/19 07:23 01/08/19 07:23 Oxygen Flow Rate (L/min) 5 Oxygen Delivery Method Nasal Cannula Weight: 199 lb 4.766 oz Body Mass Index (BMI) 29.4 Intake and Output for Last 24 Hours 01/07/19 01/07/19 01/08/19 00:59 23:59 23:59 Intake Total 640 / 640 Output Total 750 / 750 Balance -110 / -110 General: Alert, Oriented x3, Cooperative, - - Mildly short of breath, audible wheezing. HEENT: Atraumatic, PERRLA, EOMI, Normocephalic Oral: Moist Mucosa, No Gingival or Mucosal Lesions/ Ulcerations Neck: Supple, No JVD, Negative Carotid Bruits, Trachea Midline, Thyroid Normal Size and Texture Lungs: No rales, Diminished, Rhonchi, Short of Breath, - - Decreased breath sounds bilateral, bilateral expiratory wheezes. Cardiovascular: Regular rate, Regular Rhythm, Normal S1, Normal S2, PMI Normal Abdomen: Bowel Sounds Present, Soft, Non Tender, Non-Distended, No Hepato-splenomegaly Extremities: No clubbing, No cyanosis, Edema - Trace edema. Skin: No rashes, No breakdown Lymphatic: No Cervical, Supraclavicular, or Inguinal Adenopathy Neurological: Cranial nerves II-XII grossly intact, Neuro grossly intact Psych/Mental Status: Normal Affect, Appropriate Microbiology Past 72 Hours 01/05/19 12:30 Sputum, Expectorated/Coughed Gram Stain - Final 01/05/19 12:30 Sputum, Expectorated/Coughed Respiratory Culture - Final Laboratory Results 01/08/19 05:08: PT 17.3 H, INR 1.4 Current Medications Acetaminophen (Tylenol) 650 mg PO Q6H PRN PRN PRN Reason: Pain Score 1-3/Temp > 100.7 F Last Admin: 01/08/19 06:11 Dose: 650 mg Documented by: Acetylcysteine (Mucomyst) 800 mg INHALATION BID.RT [facility] Last Admin: 01/08/19 07:14 Dose: 800 mg Documented by: Albuterol Sulfate (Ventolin Aerosols) 2.5 mg INHALATION Q2H PRN PRN PRN Reason: SHORTNESS OF BREATH Last Admin: 01/06/19 07:37 Dose: 2.5 mg Documented by: Albuterol/Ipratropium (Duoneb) 3 ml INHALATION Q4H.RT [facility] Last Admin: 01/08/19 07:14 Dose: 3 ml Documented by: Azithromycin (Zithromax) 500 mg PO Q24@2200 [facility] Last Admin: 01/07/19 20:16 Dose: 500 mg Documented by: Dextrose (D50w Syringe) 0 gm IV X1 PRN; Protocol PRN Reason: Hypoglycemia Divalproex Sodium (Depakote Er) 500 mg PO 0700,1300 [facility] Last Admin: 01/08/19 06:10 Dose: 500 mg Documented by: Divalproex Sodium (Depakote Er) 1,000 mg PO QHS [facility] Last Admin: 01/07/19 20:09 Dose: 1,000 mg Documented by: Enoxaparin Sodium (Lovenox) 90 mg SC Q12 [facility] Last Admin: 01/07/19 22:21 Dose: 90 mg Documented by: Furosemide (Lasix) 40 mg PO BREAKFAST [facility] Last Admin: 01/07/19 08:19 Dose: 40 mg Documented by: Furosemide (Lasix) 20 mg PO LUNCH [facility] Last Admin: 01/07/19 13:20 Dose: 20 mg Documented by: Gabapentin (Neurontin) 300 mg PO TID [facility] Last Admin: 01/08/19 06:09 Dose: 300 mg Documented by: Glucagon () 1 mg IM .X1 PRN PRN Reason: Hypoglycemia Guaifenesin (Mucinex) 600 mg PO BID [facility] Last Admin: 01/07/19 20:08 Dose: 600 mg Documented by: Levetiracetam (Keppra Tablet) 500 mg PO BID [facility] Last Admin: 01/07/19 20:08 Dose: 500 mg Documented by: Methylprednisolone (Solu-Medrol) 40 mg IV Q8 [facility] Last Admin: 01/08/19 06:09 Dose: 40 mg Documented by: Nicotine (Nicoderm Cq (Pbkc)) 21 mg TRANSDERM. DAILY [facility] Last Admin: 01/07/19 08:20 Dose: 21 mg Documented by: Nutritional Formula (Lactose Free) (Ensure Enlive) 120 ml PO 4X/DAY [facility] Last Admin: 01/07/19 20:16 Dose: 120 ml Documented by: Ondansetron HCl (Zofran) 4 mg IV Q8H PRN PRN PRN Reason: NAUSEA/VOMITING Last Admin: 01/06/19 18:17 Dose: 4 mg Documented by: Potassium Chloride (K-Dur) 10 meq PO TIDCM [facility] Last Admin: 01/07/19 18:03 Dose: 10 meq Documented by: Pravastatin Sodium (Pravachol) 40 mg PO QHS [facility] Last Admin: 01/07/19 20:09 Dose: 40 mg Documented by: Sodium Chloride () 10 - 40 ml IV UD PRN PRN Reason: SALINE FLUSH Last Admin: 01/08/19 06:09 Dose: 10 ml Documented by: Warfarin Sodium (Coumadin (Pbkc)) 7.5 mg PO MOFR [facility] Warfarin Sodium (Coumadin (Pbkc)) 5 mg PO SUTUWETHSA [facility] Last Admin: 01/07/19 18:03 Dose: 5 mg Documented by: Medical Necessity - Tobacco Use Smoking Status: Current every day smoker Tobacco Use: Cigarettes Assessment/Plan All Active Problems COPD exacerbation (Acute) This is a 63 years old male patient presented to the emergency room because of worsening shortness of breath with productive cough with clear sputum and was found to have acute COPD exacerbation. #1 acute COPD exacerbation: Remained on IV Solu-Medrol, p.o. Zithromax and bronchodilators including Mucomyst inhalation. Symptoms continued to improve very slowly. He remained on 5 L of oxygen which is his baseline at home. Chest x-ray reviewed, no acute findings. Nasal swab for influenza a and B were negative. Sputum culture culture revealed mixed normal respiratory angelika. Routine blood work from today reviewed, unremarkable. EKG revealed no acute ischemic changes. Plan to continue same treatment, anticipate discharge home tomorrow. #2 chronic respiratory failure: Chronically on 5 L of oxygen at home and he has been on 5 L here. Symptoms continue to improve. Plan as above. #3 history of DVT/PE: Patient was on Coumadin only for history of PE and DVT. He is on therapeutic Lovenox twice daily and Coumadin. Today's INR is 1.4. Plan to continue same treatment, repeat INR tomorrow morning. #4 seizure disorder: Stable, continue Keppra. #5 hyperlipidemia: Continue statins. #6 chronic bilateral leg edema: Continue Lasix. #7 DVT prophylaxis: INR is 1.4, start subcu Lovenox as above. This note was generated with [employer] dictation software. It may contain incorrect words, spelling, and punctuation that were not noted in checking the note before signing. Code Visit Inpatient E&M: 97431 Subs Hosp L2
[2019-01-08] MEDS: Furosemide 40 MG Tablet PO (08:23)
[2019-01-08] MEDS: guaiFENesin 600 MG Tablet PO ×2 (10:17→21:59)
[2019-01-08] MEDS: levETIRAcetam 500 MG Tablet PO ×2 (10:18→22:00)
[2019-01-08] MEDS: Enoxaparin 100 MG/ML Syringe 90 MG SC ×2 (10:18→21:10)
[2019-01-08] MEDS: Furosemide 20 MG Tablet PO (12:00)
[2019-01-08] MEDS: Ondansetron 4 MG/2 ML Vial IV (21:05)
[2019-01-08] MEDS: Divalproex (ER) 500 MG Tablet 1000 MG PO (21:58)
[2019-01-08] MEDS: Pravastatin 40 MG Tablet PO (21:58)
[2019-01-08] MEDS: Azithromycin 250 MG Tablet 500 MG PO (21:59)
[2019-01-09 02:19] VITALS: PULSE 92; RESP 18
[2019-01-09] MEDS: Ipratropium/Albuterol Sulfate 3 ML AMPUL.NEB INHALATION ×3 (02:20→11:22)
[2019-01-09 02:23] VITALS: BP 116/63; PULSE 91; RESP 20; TEMP 36.9; O2SAT 97
--- NOTE | 2019-01-09 05:30 | CPS ---
patient refused PAP therapy at this time. Patient informed that it is recommended for him to wear it but still declined
[2019-01-09] MEDS: 0.9% Saline Lock 10 ML Syringe IV (06:09)
[2019-01-09] MEDS: Divalproex (ER) 500 MG Tablet PO ×2 (06:09→12:47)
[2019-01-09] MEDS: Gabapentin 300 MG Capsule PO (06:10)
[2019-01-09] MEDS: Acetylcysteine 800 MG/4 ML VIAL.NEB. INHALATION (06:36)
[2019-01-09 06:37] VITALS: PULSE 91; RESP 18; O2SAT 96
--- NOTE | 2019-01-09 07:27 | DCINST_ITS ---
- Discharge Diagnoses Current Active Problems: Current Active and Chronic Problems COPD exacerbation (Acute) COPD (chronic obstructive pulmonary disease) (Chronic) You will use the following diet at home:: Cardiac Your food should be the consistency of: Regular Discharge Activity: May Not Drive - for 1-2 week and see PCP before resumtion of driving Call your doctor if you observe: Fever of 101 or Higher, Coldness, Increased Pain, Inability to urinate, Inability to have a bowel movement, Shortness of breath, Fainting spells, Swelling in the ankles, Chest pain, Prolonged hiccoughing, Increased palpitations (irregular heartbeat) Allergies/Adverse Reactions: Allergies No Known Allergies Allergy (Verified 01/04/19 15:02) Medications to take at Discharge Gabapentin [Neurontin] 300 mg PO TID 05/28/16 Potassium Chloride [K-Dur] 10 meq PO TID 05/28/16 Nitroglycerin (INPATIENT USE) [Nitrostat] 0.4 mg SUBLINGUAL Q5M PRN 12/12/17 Furosemide [Lasix] 40 mg PO BREAKFAST 04/29/18 Divalproex Sodium [Depakote ER] 1,000 mg PO QHS 05/02/18 Divalproex Sodium [Depakote ER] 500 mg PO 0700,1300 05/02/18 Pravastatin Sodium 40 mg PO QHS 05/02/18 Acetaminophen [Tylenol Tablet] 650 mg PO Q6H PRN PRN tablet 05/10/18 Guaifenesin [Mucinex] 600 mg PO BID 07/15/18 Ergocalciferol (Vitamin D2) [Vitamin D2] 50 mcg PO QWEEK 08/02/18 Furosemide [Lasix] 20 mg PO LUNCH 01/04/19 Levetiracetam 500 mg PO BID 01/04/19 Mometasone/Formoterol [Dulera 200 Mcg/5 Mcg Inhaler] 1 puff IH BID 01/04/19 Warfarin Sodium 7.5 mg PO MOFR 01/04/19 Warfarin [Coumadin] 5 mg PO SUTUWETHSA 01/04/19 Albuterol Inhaler [Ventolin Hfa] 2 puff INHALATION Q4H PRN PRN #0 01/09/19 Bmx Liquid 10 ml PO Q4H PRN PRN #100 ml 01/09/19 Ipratropium/Albuterol Sulfate [Duoneb] 3 ml INHALATION Q4H PRN PRN #30 ampul.neb 01/09/19 Nicotine [Nicoderm Cq] 21 mg TRANSDERM. DAILY #30 patch 01/09/19 Prednisone 10 mg PO UD #30 tab 01/09/19 The following prescriptions were given: Bmx Liquid 10 ml PO Q4H PRN PRN #100 ml PRN Reason: sore thorat Transmission Status: Pending to [facility] Ipratropium/Albuterol Sulfate [Duoneb] 3 ml INHALATION Q4H PRN PRN #30 ampul.neb PRN Reason: Sob &/Or Wheezing Transmission Status: Pending to [facility] Nicotine [Nicoderm Cq] 21 mg TRANSDERM. DAILY #30 patch Transmission Status: Pending to [facility] Prednisone 10 mg PO UD #30 tab Prescription Printed Primary Care Physician: Josefina Newby MD [Primary Care Provider] - Please follow up with your Primary Care Physician in: in 1-2 weeks Test Results: Test results from this visit will be discussed in further detail at your follow- up appointment, if applicable. Please Follow Up With: Freddy Gee MD When: SEVERE COPD
[2019-01-09 07:46] LABS: International Normalized Ratio 2.6; Prothrombin Time (Protime)PT. 27.5 SECONDS (11.7-14.9)
[2019-01-09 08:19] VITALS: BP 129/69; PULSE 90; RESP 18; TEMP 36.7; O2SAT 93
[2019-01-09] MEDS: Acetaminophen 325 MG Tablet 650 MG PO (08:24)
[2019-01-09] MEDS: Furosemide 40 MG Tablet PO (08:26)
--- NOTE | 2019-01-09 08:35 | PCM.PN.HOSP ---
Patient Problems: Active and Suspected Problems COPD exacerbation (Acute) Subjective: The patient is still short of breath. Postnasal dripping, sore throat. Patient also has choking sensation on sausage. Patient is edentulous but does not use dentures. Feels like burning and sore throat. Vitals/I&O's: Vital Signs Temp Pulse Resp BP Pulse Ox 98.0 F 90 18 129/69 H 93 01/09/19 08:19 01/09/19 08:19 01/09/19 08:19 01/09/19 08:19 01/09/19 08:19 Oxygen Flow Rate (L/min) 5 Oxygen Delivery Method Nasal Cannula Weight: 199 lb 4.766 oz Body Mass Index (BMI) 29.4 Intake and Output for Last 24 Hours 01/07/19 01/08/19 01/09/19 23:59 23:59 23:59 Intake Total 1560 / 1560 1084 / 1084 Output Total 1625 / 1625 400 / 400 Balance -65 / -65 684 / 684 General: Alert, Oriented x3, Cooperative HEENT: Atraumatic, PERRLA, EOMI, Normocephalic Oral: No Gingival or Mucosal Lesions/ Ulcerations, - - No obvious oral ulcers seen. No whitish plaque suggestive of yeast infection Neck: Supple, No JVD, Negative Carotid Bruits Lungs: Diminished - Air entry severely diminished., Rhonchi, Short of Breath Cardiovascular: Regular rate, Regular Rhythm, Normal S1, Normal S2, No murmurs Abdomen: Bowel Sounds Present, Soft, Non Tender, Non-Distended Extremities: Capillary Refill Less than 3 Seconds, Edema - Slight edema Skin: No rashes, No breakdown Musculoskeletal: No Tenderness to Palpation of Joints or Extremities, Arthritic Changes Neurological: Cranial nerves II-XII grossly intact Psych/Mental Status: Normal Affect, Appropriate Microbiology Past 72 Hours 01/05/19 12:30 Sputum, Expectorated/Coughed Gram Stain - Final 01/05/19 12:30 Sputum, Expectorated/Coughed Respiratory Culture - Final Laboratory Results 01/09/19 05:47: PT 27.5 H, INR 2.6 Current Medications Acetaminophen (Tylenol) 650 mg PO Q6H PRN PRN PRN Reason: Pain Score 1-3/Temp > 100.7 F Last Admin: 01/09/19 08:24 Dose: 650 mg Documented by: Acetylcysteine (Mucomyst) 800 mg INHALATION BID.RT [facility] Last Admin: 01/09/19 06:36 Dose: 800 mg Documented by: Albuterol Sulfate (Ventolin Aerosols) 2.5 mg INHALATION Q2H PRN PRN PRN Reason: SHORTNESS OF BREATH Last Admin: 01/06/19 07:37 Dose: 2.5 mg Documented by: Albuterol/Ipratropium (Duoneb) 3 ml INHALATION Q4H.RT [facility] Last Admin: 01/09/19 06:36 Dose: 3 ml Documented by: Azithromycin (Zithromax) 500 mg PO Q24@2200 [facility] Last Admin: 01/08/19 21:59 Dose: 500 mg Documented by: Dextrose (D50w Syringe) 0 gm IV X1 PRN; Protocol PRN Reason: Hypoglycemia Divalproex Sodium (Depakote Er) 500 mg PO 0700,1300 [facility] Last Admin: 01/09/19 06:09 Dose: 500 mg Documented by: Divalproex Sodium (Depakote Er) 1,000 mg PO QHS [facility] Last Admin: 01/08/19 21:58 Dose: 1,000 mg Documented by: Enoxaparin Sodium (Lovenox) 90 mg SC Q12 [facility] Last Admin: 01/08/19 21:10 Dose: 90 mg Documented by: Furosemide (Lasix) 40 mg PO BREAKFAST [facility] Last Admin: 01/09/19 08:26 Dose: 40 mg Documented by: Furosemide (Lasix) 20 mg PO LUNCH [facility] Last Admin: 01/08/19 12:00 Dose: 20 mg Documented by: Gabapentin (Neurontin) 300 mg PO TID [facility] Last Admin: 01/09/19 06:10 Dose: 300 mg Documented by: Glucagon () 1 mg IM .X1 PRN PRN Reason: Hypoglycemia Guaifenesin (Mucinex) 600 mg PO BID [facility] Last Admin: 01/08/19 21:59 Dose: 600 mg Documented by: Levetiracetam (Keppra Tablet) 500 mg PO BID [facility] Last Admin: 01/08/19 22:00 Dose: 500 mg Documented by: Lidocaine/Diphenhydr/Alum/Mg/Simeth () 10 ml PO Q4H PRN PRN PRN Reason: sore thorat Methylprednisolone (Solu-Medrol) 40 mg IV Q8 [facility] Last Admin: 01/09/19 06:09 Dose: 40 mg Documented by: Nicotine (Nicoderm Cq (Pbkc)) 21 mg TRANSDERM. DAILY [facility] Last Admin: 01/08/19 10:19 Dose: 21 mg Documented by: Nutritional Formula (Lactose Free) (Ensure Enlive) 120 ml PO 4X/DAY [facility] Last Admin: 01/08/19 21:08 Dose: Not Given Documented by: Ondansetron HCl (Zofran) 4 mg IV Q8H PRN PRN PRN Reason: NAUSEA/VOMITING Last Admin: 01/08/19 21:05 Dose: 4 mg Documented by: Potassium Chloride (K-Dur) 10 meq PO TIDCM [facility] Last Admin: 01/09/19 08:26 Dose: 10 meq Documented by: Pravastatin Sodium (Pravachol) 40 mg PO QHS [facility] Last Admin: 01/08/19 21:58 Dose: 40 mg Documented by: Sodium Chloride () 10 - 40 ml IV UD PRN PRN Reason: SALINE FLUSH Last Admin: 01/09/19 06:09 Dose: 10 ml Documented by: Warfarin Sodium (Coumadin (Pbkc)) 7.5 mg PO MOFR [facility] Last Admin: 01/08/19 17:56 Dose: 7.5 mg Documented by: Warfarin Sodium (Coumadin (Pbkc)) 5 mg PO SUTUWETHSA [facility] Last Admin: 01/07/19 18:03 Dose: 5 mg Documented by: STROKE Vital Signs/Narrative: Vital Signs Temp Pulse Resp BP Pulse Ox 01/09/19 08:19 98.0 F 90 18 129/69 H 93 01/09/19 06:37 91 18 96 Medical Necessity - Tobacco Use Smoking Status: Current every day smoker Tobacco Use: Cigarettes Assessment/Plan All Active Problems COPD exacerbation (Acute) Patient has acute COPD exacerbation: Patient has URI symptoms including postnasal drip and sore throat. There is no obvious white plaque suggestive of yeast infection or ulcer. Speech therapist was called. Patient was examined and recommended small bites with sips of water but no obvious major abnormality. Mechanical soft texture with thin liquid. For sore throat, started on BMX liquid. Repeat chest x-ray was done does not show acute cardiopulmonary ability. Patient follows hand stemmer Dr Van [facility]. Patient agrees for discharge. Scripts were given. Please see discharge summary for details assessment and plan and management during hospital course.
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
[2019-01-09] MEDS: guaiFENesin 600 MG Tablet PO (10:54)
[2019-01-09] MEDS: levETIRAcetam 500 MG Tablet PO (10:55)
--- NOTE | 2019-01-09 11:07 | RAD_ITS ---
STUDY: X-RAY CHEST REASON FOR EXAM: Male, 63 years old. Thick cough, SOB COPD TECHNIQUE: PA and lateral views of the chest. COMPARISON: January 04, 2019 FINDINGS: There is hyperinflation of the lungs consistent with chronic obstructive lung disease (COPD). No focal consolidation or new opacification. Interstitial fibrotic and cystic emphysematous changes reidentified. Normal size heart. Stable mediastinal and osseous structures. RAD/Chest PA and Lateral IMPRESSION: COPD/emphysema Electronically Signed: Brandon Baker MD at 13:07 EST , Service support ,
[2019-01-09 11:23] VITALS: PULSE 74; RESP 19
[2019-01-09] MEDS: Furosemide 20 MG Tablet PO (11:46)
--- NOTE | 2019-01-09 11:56 | DS.PCM_ITS ---
Discharge Date and Diagnosis - Problem List Patient Problems: Active and Suspected Problems COPD exacerbation (Acute) Date of Admission: 01/04/19 Date of Discharge: 01/09/19 - Primary Discharge Diagnosis Active and Suspected Problems COPD exacerbation (Acute) - Secondary Discharge Diagnosis Chronic Problems Tobacco use (Chronic) HTN (hypertension) (Chronic) HLD (hyperlipidemia) (Chronic) Ulcer of right lower extremity with fat layer exposed (Chronic) Lower extremity edema (Chronic) History of DVT (deep vein thrombosis) (Chronic) History of pulmonary embolism (Chronic) Seizure disorder (Chronic) COPD (chronic obstructive pulmonary disease) (Chronic) Hospital Course and Treatment Imaging Results: 01/09/19 11:07 Chest PA and Lateral [RAD] Urgent Operations: None Summary of Care Provided: [] This is a 63 years old male patient [facility] ER because of worsening shortness of breath with productive cough with clear sputum, significant URI symptoms of postnasal drip and nasal congestion and was found to have acute COPD exacerbation. #1 acute COPD exacerbation: Nasal swab for influenza a and B were negative. Sputum culture culture revealed mixed normal respiratory angelika. Influenza is negative EKG revealed no acute ischemic changes.He was started on IV Solu- Medrol, p.o. Zithromax, bronchodilator, Mucomyst inhalation, incentive spirometry and chest physiotherapy. Patient has slow improvement in respiratory status. Patient is on 5 L of oxygen diuresis home requirement. There is no obvious white plaque suggestive of yeast infection or ulcer. Speech therapist was called. Patient was examined and recommended small bites with sips of water but no obvious major abnormality. Mechanical soft texture with thin liquid. For sore throat, started on BMX liquid. Repeat chest x-ray was done does not show acute cardiopulmonary ability. Patient follows aws consultant Dr Van [place]. #2 chronic respiratory failure: Chronically on 5 L of oxygen at home and he has been on 5 L here. Patient was advised bronchopulmonary hygiene especially incentive spirometry and acapella #3 history of DVT/PE: Patient was on Coumadin only for history of PE and DVT. Initially, INR was subtherapeutic and supplemented with Lovenox therapeutic dose. INR today is 2.6 therefore Lovenox discontinued. The new home dose of warfarin. #4 seizure disorder: Stable, continue Keppra. #5 hyperlipidemia: Continue statins. #6 chronic bilateral leg edema: Continue Lasix. Discharge medication reconciliation done. Discharge follow-up instructions completed. Discharge process discussed with the patient and all questions were answered to patient's satisfaction. Prescriptions were given for tapering dose of prednisone, DuoNeb nebulization, BMX liquid as needed for symptomatic management of sore throat and nicotine patch. Follow-up with aws consultant Dr Van in 2 weeks. Patient was advised to use BiPAP with oxygen as he was using before. Total time spent, exact 35 minutes on discharge meds reconciliation, examination, review of imaging and blood test and discussion with the patient on follow-up instructions. Patient Problems: Active and Suspected Problems COPD exacerbation (Acute) Subjective: Please see progress note of the same day 01/09. - Physical Exam Vitals/I&O's: Vital Signs Temp Pulse Resp BP Pulse Ox 98.0 F 74 19 H 129/69 H 93 01/09/19 08:19 01/09/19 11:23 01/09/19 11:23 01/09/19 08:19 01/09/19 08:19 Oxygen Flow Rate (L/min) 5 Oxygen Delivery Method Nasal Cannula Weight: 199 lb 4.766 oz Body Mass Index (BMI) 29.4 Intake and Output for Last 24 Hours 01/07/19 01/08/19 01/09/19 23:59 23:59 23:59 Intake Total 1560 / 1560 1084 / 1084 Output Total 1625 / 1625 400 / 400 Balance -65 / -65 684 / 684 Microbiology Past 72 Hours 01/05/19 12:30 Sputum, Expectorated/Coughed Gram Stain - Final 01/05/19 12:30 Sputum, Expectorated/Coughed Respiratory Culture - Final Laboratory Results 01/09/19 05:47: PT 27.5 H, INR 2.6 Current Medications Acetaminophen (Tylenol) 650 mg PO Q6H PRN PRN PRN Reason: Pain Score 1-3/Temp > 100.7 F Last Admin: 01/09/19 08:24 Dose: 650 mg Documented by: Acetylcysteine (Mucomyst) 800 mg INHALATION BID.RT [facility] Last Admin: 01/09/19 06:36 Dose: 800 mg Documented by: Albuterol Sulfate (Ventolin Aerosols) 2.5 mg INHALATION Q2H PRN PRN PRN Reason: SHORTNESS OF BREATH Last Admin: 01/06/19 07:37 Dose: 2.5 mg Documented by: Albuterol/Ipratropium (Duoneb) [address] [facility] Last Admin: 01/09/19 11:22 Dose: 3 ml Documented by: Azithromycin (Zithromax) 500 mg PO Q24@2200 [facility] Last Admin: 01/08/19 21:59 Dose: 500 mg Documented by: Dextrose (D50w Syringe) 0 gm IV X1 PRN; Protocol PRN Reason: Hypoglycemia Divalproex Sodium (Depakote Er) 500 mg PO 0700,1300 [facility] Last Admin: 01/09/19 06:09 Dose: 500 mg Documented by: Divalproex Sodium (Depakote Er) 1,[address] [facility] Last Admin: 01/08/19 21:58 Dose: 1,000 mg Documented by: Furosemide (Lasix) [address] [facility] Last Admin: 01/09/19 08:26 Dose: 40 mg Documented by: Furosemide (Lasix) [address] [facility] Last Admin: 01/09/19 11:46 Dose: 20 mg Documented by: Gabapentin (Neurontin) [address] [facility] Last Admin: 01/09/19 06:10 Dose: 300 mg Documented by: Glucagon () 1 mg IM .X1 PRN PRN Reason: Hypoglycemia Guaifenesin (Mucinex) [address] [facility] Last Admin: 01/09/19 10:54 Dose: 600 mg Documented by: Levetiracetam (Keppra Tablet) [address] [facility] Last Admin: 01/09/19 10:55 Dose: 500 mg Documented by: Lidocaine/Diphenhydr/Alum/Mg/Simeth () 10 ml PO Q4H PRN PRN PRN Reason: sore thorat Methylprednisolone (Solu-Medrol) [address] [facility] Last Admin: 01/09/19 06:09 Dose: 40 mg Documented by: Nicotine (Nicoderm Cq (Pbkc)) [address] [facility] Last Admin: 01/09/19 10:55 Dose: 21 mg Documented by: Nutritional Formula (Lactose Free) (Ensure Enlive) 120 ml PO 4X/DAY [facility] Last Admin: 01/09/19 10:58 Dose: Not Given Documented by: Ondansetron HCl (Zofran) 4 mg IV Q8H PRN PRN PRN Reason: NAUSEA/VOMITING Last Admin: 01/08/19 21:05 Dose: 4 mg Documented by: Potassium Chloride (K-Dur) [address] [facility] Last Admin: 01/09/19 11:47 Dose: 10 meq Documented by: Pravastatin Sodium (Pravachol) [address] [facility] Last Admin: 01/08/19 21:58 Dose: 40 mg Documented by: Sodium Chloride () 10 - 40 ml IV UD PRN PRN Reason: SALINE FLUSH Last Admin: 01/09/19 06:09 Dose: 10 ml Documented by: Warfarin Sodium (Coumadin (Pbkc)) 7.[address] [facility] Last Admin: 01/08/19 17:56 Dose: 7.5 mg Documented by: Warfarin Sodium (Coumadin (Pbkc)) [address] [facility] Last Admin: 01/07/19 18:03 Dose: 5 mg Documented by: Discharge Activity: May Not Drive - for 1-2 week and see PCP before resumtion of driving Call your doctor if you observe: Fever of 101 or Higher, Coldness, Increased Pain, Inability to urinate, Inability to have a bowel movement, Shortness of breath, Fainting spells, Swelling in the ankles, Chest pain, Prolonged hiccoughing, Increased palpitations (irregular heartbeat) Home Medications: Medications to take at Discharge Gabapentin [Neurontin] 300 mg PO TID 05/28/16 Potassium Chloride [K-Dur] 10 meq PO TID 05/28/16 Nitroglycerin (INPATIENT USE) [Nitrostat] 0.4 mg SUBLINGUAL Q5M PRN 12/12/17 Furosemide [Lasix] 40 mg PO BREAKFAST 04/29/18 Divalproex Sodium [Depakote ER] 1,000 mg PO QHS 05/02/18 Divalproex Sodium [Depakote ER] 500 mg PO 0700,1300 05/02/18 Pravastatin Sodium 40 mg PO QHS 05/02/18 Acetaminophen [Tylenol Tablet] 650 mg PO Q6H PRN PRN tablet 05/10/18 Guaifenesin [Mucinex] 600 mg PO BID 07/15/18 Ergocalciferol (Vitamin D2) [Vitamin D2] 50 mcg PO QWEEK 08/02/18 Furosemide [Lasix] 20 mg PO LUNCH 01/04/19 Levetiracetam 500 mg PO BID 01/04/19 Mometasone/Formoterol [Dulera 200 Mcg/5 Mcg Inhaler] 1 puff IH BID 01/04/19 Warfarin Sodium 7.5 mg PO MOFR 01/04/19 Warfarin [Coumadin] 5 mg PO SUTUWETHSA 01/04/19 Albuterol Inhaler [Ventolin Hfa] 2 puff INHALATION Q4H PRN PRN #0 01/09/19 Bmx Liquid 10 ml PO Q4H PRN PRN #100 ml 01/09/19 Ipratropium/Albuterol Sulfate [Duoneb] 3 ml INHALATION Q4H PRN PRN #30 ampul.neb 01/09/19 Nicotine [Nicoderm Cq] 21 mg TRANSDERM. DAILY #30 patch 01/09/19 Prednisone 10 mg PO UD #30 tab 01/09/19 Following Prescrptions Were Given to Patient: Bmx Liquid 10 ml PO Q4H PRN PRN #100 ml PRN Reason: sore thorat Transmission Status: Received by [facility] Ipratropium/Albuterol Sulfate [Duoneb] 3 ml INHALATION Q4H PRN PRN #30 ampul.neb PRN Reason: Sob &/Or Wheezing Transmission Status: Received by [facility] Nicotine [Nicoderm Cq] 21 mg TRANSDERM. DAILY #30 patch Transmission Status: Received by [facility] Prednisone 10 mg PO UD #30 tab Prescription Printed Primary Care Physician: Josefina Newby MD [Primary Care Provider] - Please follow up with your Primary Care Physician in: in 1-2 weeks Please Follow Up With: Freddy Gee MD When: SEVERE COPD Please Follow Up With: DEEDEE BECK NP When: TUESDAY Medical Necessity - Tobacco Use Smoking Status: Current every day smoker Tobacco Use: Cigarettes Meaningful Use Info Meaningful Use Diagnoses (Choose all that apply): None applicable Code Visit Inpatient E&M: 92423 Disch Hosp
[2019-01-09] MEDS: BMX LIQUID 180 ML 10 ML PO (12:50)
[2019-01-09 12:55] VITALS: BP 124/88; PULSE 85; RESP 18; TEMP 36.7; O2SAT 96
--- NOTE | 2019-01-10 14:56 | CASEMGMT ---
RANDY CM DC PHONE CALL DC DATE: DC Disposition: Home Diagnosis on Discharge: Shortness of Breath LACE/STRATA: 15/4 Attempted call, no answer and no message machine with name identifier. Tari NOVAKN RN ACM
--- NOTE | 2019-01-16 08:06 | CCN.REFER ---
Patient declining CCN. Spoke with both sisters and brother, and they all agree. However, patient states he is much improved and does not needed any added monitoring in the home. CCN information left with patient and family to contact if they change their mind.
== END 2019-01-09 13:10 | disposition home or self-care (01) | DRG 140 ==
LOC: ED 20:49 → MS3 20:53
PROVIDERS: Hospitalist; Admitting Provider Hospitalist; Emergency Provider Emergency Medicine; Family Provider Internal Medicine; PCP Internal Medicine; Referring Provider Hospitalist; Visit Provider Internal Medicine
DX: J44.1 Chronic obstructive pulmonary disease with (acute) exacerbation (principal); Z99.81 Dependence on supplemental oxygen; Z86.718 Personal history of other venous thrombosis and embolism; Z86.711 Personal history of pulmonary embolism; F17.210 Nicotine dependence, cigarettes, uncomplicated; R60.0 Localized edema; Z79.01 Long term (current) use of anticoagulants; E78.5 Hyperlipidemia, unspecified; G40.909 Epilepsy, unspecified, not intractable, without status epilepticus; J96.10 Chronic respiratory failure, unspecified whether with hypoxia or hypercapnia; I10 Essential (primary) hypertension
CPT/HCPCS: 36415; 71046; 80048; 84484; 85025; 85610; 85730; 87070; 87205; 87633; 87804; 92610; 93005; 94002; 94003; 94640; 94667; 94668; 97110; 97116; 97162; 97166; 97530; 97802; 99285; 99406; A4216; J2405

== ENCOUNTER 2019-01-23 17:47 | Inpatient (IN) | payer MEDICAID, SELFPAY ==
[2019-01-04 21:15] VITALS: BMI 29.4
[2019-01-23] VITALS (15 sets, daily range): BP systolic 115–139; BP diastolic 64–111; PULSE 97–130; RESP 19–28; TEMP 36.8–37.7; O2SAT 95–97; BMI 31.9; BMI 29.4
--- NOTE | 2019-01-23 18:35 | CT_ITS ---
STUDY: CT BRAIN WITHOUT CONTRAST REASON FOR EXAM: Male, 63 years old. Garbled speech, elevated blood pressure, shortness of breath, nausea, cough RADIATION DOSAGE (If Supplied By Facility): CTDIvol = ( 44.99 ) mGy, DLP = ( 829.85 ) mGycm TECHNIQUE: Transaxial CT imaging of the brain was performed without administration of intravenous contrast material. Individualized dose optimization techniques were used for this CT. COMPARISON: Previous study of 07/15/2018 FINDINGS: Normal soft tissue structures. Normal calvarium. There is mild cerebral atrophy with widening of the extra-axial spaces and ventricular dilatation. There are areas of decreased attenuation within the white matter tracts of the supratentorial brain, consistent with microvascular disease changes. Normal basal ganglia and thalami. Normal brainstem. Normal cerebellum. There is no intracranial hemorrhage. There are no findings of an acute ischemic infarction. Normal visualized paranasal sinuses. CT/Brain/Head without Contrast IMPRESSION: Chronic involutional changes of the brain. Electronically Signed: Ford Craig MD at 19:28 EST , Service support ,
--- NOTE | 2019-01-23 18:35 | EKG12_ITS ---
Test Reason : SOB Blood Pressure : / mmHG Vent. Rate : 118 BPM Atrial Rate : 118 BPM P-R Int : 168 ms QRS Dur : 086 ms QT Int : 322 ms P-R-T Axes : 072 062 072 degrees QTc Int : 451 ms Sinus tachycardia Otherwise normal ECG Confirmed by DELMY AVILES, JERI ([id number]), editor newspaper PATT CUMMINS ([id number]) on 01/26/2019 12:24:53 PM Referred By: Confirmed By:JOEL BROCK MD
--- NOTE | 2019-01-23 18:37 | RAD_ITS ---
STUDY: X-RAY CHEST REASON FOR EXAM: Male, 63 years old. Nausea cough and shortness of breath times several days TECHNIQUE: Single AP portable view of the chest. COMPARISON: Prior study of 01/09/2019 FINDINGS: chauffeur leads are present. The lungs are clear and expanded. There is no demonstrated pleural abnormality. Normal size heart. Normal mediastinum and angie. Normal visualized pulmonary arteries. There are calcified plaques of the thoracic aorta. Normal visualized thoracic spine. There are multiple old bilateral rib fractures. There is no demonstrated abnormality of the visualized soft tissue structures of the upper abdomen. RAD/Chest 1 View (Portable) IMPRESSION: Calcified plaques of the thoracic aorta. Multiple old bilateral rib fractures. No acute cardiopulmonary disease process is seen. Electronically Signed: Ford Craig MD at 18:56 EST , Service support ,
[2019-01-23] MEDS: 0.9% Normal Saline 1,000 ML 1000 ML IV (18:47)
[2019-01-23 19:08] LABS: Absolute Lymphocyte Count 1.36 X10^3/uL (0.83-4.51); Absolute Neutrophil Count 4.6 X10^3/uL (2.0-7.7); Basophil# 0.04 X10^3/uL; Basophil% 0.5 % (0-1); Hematocrit 42.9 % (40-54); Hemoglobin 14.4 g/dL (13.0-16.5); Lymphocyte # 1.36 X10^3/ul (4.0); Lymphocyte % 17.1 % (19-41); Mean Corp Hgb Conc 33.6 g/dL (32-36); Mean Corpuscular Hgb 33.8 pg (27.0-32.0); Mean Corpuscular Volume 100.7 fL (80-94); Mean Platelet Vol. 10.7 fl (6.2-12.0); Monocyte# 1.87 X10^3/uL; Monocyte% 23.5 % (0-10); NRBC Flagged by Analyzer 0 % (0-5); Neutrophil % 57.6 % (47-70); POSITIVE DIFFERENTIAL YES; Platelet Count 117 K/mm3 (150-450); RBC Distribution Width CV 13.1 % (11.6-14.6); RBC Distribution Width SD 48.1 fl (35.1-43.9); Red Blood Count 4.26 M/mm3 (4.6-6.2)
[2019-01-23 19:11] LABS: International Normalized Ratio 2.3; Prothrombin Time (Protime)PT. 25.7 SECONDS (11.7-14.9)
[2019-01-23 19:20] LABS: Differential Indicated SCAN CRITERIA MET
[2019-01-23 19:24] LABS: Valproic Acid (Depakene) Level 73 ug/mL (50-100)
[2019-01-23 19:28] LABS: Anion Gap 9 (5-15); BUN 9 mg/dL (7-18); BUN/Creat Ratio 19.1 RATIO (10-20); Calcium,Total 8.7 mg/dL (8.5-10.1); Chloride 95 mmol/L (98-107); Creatinine, Serum 0.47 mg/dL (0.70-1.30); EST Glomerular Filtration Rate 193 mL/min (>60); Est Glom Filt Rate - Afr Amer 233 mL/min (>60); Estimated Creatinine Clearance 165.05 ml/min; Glucose 109 mg/dL (74-106); Potassium 4.4 mmol/L (3.5-5.1); Sodium Level 132 mmol/L (136-145)
[2019-01-23 19:44] LABS: Bacteria 0 SEEN /hpf (None Seen); Squamous Epithelial Cells - UA 0 SEEN /hpf (0-5)
[2019-01-23 19:47] LABS: Differential Comment SCANNED
[2019-01-23 19:57] LABS: Color, Urine Amber (Yellow); Glucose, Dipstick Normal (Normal); Ketone-Dipstick 50 mg/dl (Negative); Leukocyte Esterase-Dipstick 25 /ul (Negative); Nitrite-Dipstick Negative (Negative); Occult Blood-Urine 25 /ul (Negative); Protein-Dipstick 30 mg/dl (Negative); Urine Clarity Clear (Clear); Urine Urobilinogen 12 mg/dl (Normal)
[2019-01-23 19:58] LABS: Urine Bilirubin Dipstick 1 mg/dL (Negative)
[2019-01-23] MEDS: Ipratropium/Albuterol Sulfate 3 ML AMPUL.NEB INHALATION ×2 (20:01→23:47)
[2019-01-23 20:22] LABS: Mucous, Urine 1+ /hpf (<or=2+)
[2019-01-23 20:23] LABS: Red Blood Cells-Urine 0-5 SEEN /hpf (0-5)
[2019-01-23 20:25] LABS: Transitional Epithelial - Ur 0-5 SEEN /hpf (0-5); White Blood Cells 0-5 SEEN /hpf (0-5)
--- NOTE | 2019-01-23 20:54 | HP.PCM_ITS ---
Problem List (1) CVA (cerebral vascular accident) Status: Acute Qualifiers: CVA mechanism: unspecified Qualified Code(s): I63.9 - Cerebral infarction, unspecified (2) COPD exacerbation Status: Acute (3) Tobacco use Status: Chronic (4) HTN (hypertension) Status: Chronic Qualifiers: Hypertension type: essential hypertension Qualified Code(s): I10 - Essential (primary) hypertension (5) HLD (hyperlipidemia) Status: Chronic Qualifiers: Hyperlipidemia type: unspecified Qualified Code(s): E78.5 - Hyperlipidemia, unspecified (6) History of DVT (deep vein thrombosis) Status: Chronic (7) History of pulmonary embolism Status: Chronic (8) Seizure disorder Status: Chronic (9) COPD (chronic obstructive pulmonary disease) Status: Chronic Qualifiers: COPD type: unspecified COPD Qualified Code(s): J44.9 - Chronic obstructive pulmonary disease, unspecified (10) Chronic respiratory failure with hypoxia Status: Chronic History of Present Illness Date of Admission: 01/23/19 Chief Complaint: Dyspnea, cough, wheezing, ongoing slurred speech The patient is a 63 y/o M w/ PMHx: Chronic COPD w/ Chronic Hypoxic Respiratory Failure (4L NC) following w/ CC Pulmonary, HTN, HLD, Depression and Anxiety, Hx DVT/PE on coumadin, Seizure disorder, Tobacco use ongoing who presents to the [facility] [place] ED on 01/23/19 with history of 2 to 3 days of progressively worsening fatigue, weakness generally, dyspnea worse with exertion with mildly productive cough of yellow-shields sputum with ongoing wheezing and chest tightness with decreased appetite, nausea, emesis and subjective fevers in addition to 2 days of ongoing slurred speech but no focal neurological deficits otherwise but global weakness per patient report. He states that he has been able to eat although he has had little appetite but had no difficulty doing so. Work-up in the ED included T 98.4, heart rate 109, BP 115/69, respiratory rate 20, 92% on 4 L nasal cannula, CBC with WC 8, hemoglobin 14.4, platelet 117 with increased granulocytes, monocytes, INR 2.3, BMP with sodium 132, chloride 95, BUN/creatinine 9/0.47, glucose 109, urinalysis with 30 protein, 50 ketones, 25 occult blood, negative nitrite, leukocyte esterase 12, urobilinogen 12, bilirubin 1, 0 bacteria, valproic acid level 73, EKG with no acute evidence of ischemia, CT head with chronic involutional changes with no acute intracranial findings, chest x-ray with calcified plaques of the thoracic aorta, multiple old bilateral rib fractures with no acute cardiopulmonary findings. In the ED patient ministered normal saline, Solu-Medrol, DuoNeb therapy. Past Medical History Past Medical History (Chronic Problems): Chronic Problems Chronic respiratory failure with hypoxia (Chronic) Tobacco use (Chronic) HTN (hypertension) (Chronic) HLD (hyperlipidemia) (Chronic) Ulcer of right lower extremity with fat layer exposed (Chronic) Lower extremity edema (Chronic) History of DVT (deep vein thrombosis) (Chronic) History of pulmonary embolism (Chronic) Seizure disorder (Chronic) COPD (chronic obstructive pulmonary disease) (Chronic) Allergies No Known Allergies Allergy (Verified 01/23/19 17:51) Home Medications: Ambulatory Orders Medication Instructions Recorded Gabapentin [Neurontin] 300 mg PO TID 05/28/16 Potassium Chloride [K-Dur] 10 meq PO TID 05/28/16 Nitroglycerin (INPATIENT USE) 0.4 mg SUBLINGUAL Q5M PRN 12/12/17 [Nitrostat] Furosemide [Lasix] 40 mg PO BREAKFAST 04/29/18 Divalproex Sodium [Depakote ER] 1,000 mg PO QHS 05/02/18 Divalproex Sodium [Depakote ER] 500 mg PO 0700,1300 05/02/18 Pravastatin Sodium 40 mg PO QHS 05/02/18 Acetaminophen [Tylenol Tablet] 650 mg PO Q6H PRN PRN tablet 05/10/18 Guaifenesin [Mucinex] 600 mg PO BID 07/15/18 Furosemide [Lasix] 20 mg PO LUNCH 01/04/19 Mometasone/Formoterol [Dulera 200 1 puff IH BID 01/04/19 Mcg/5 Mcg Inhaler] Warfarin [Coumadin] 5 mg PO SUTUWETHSA 01/04/19 Albuterol Inhaler [Ventolin Hfa] 2 puff INHALATION Q4H PRN PRN #0 01/09/19 Ipratropium/Albuterol Sulfate 3 ml INHALATION Q4H PRN PRN #30 01/09/19 [Duoneb] ampul.neb Cholecalciferol (Vitamin D3) 50,000 unit PO MO 01/23/19 [Vitamin D] Warfarin Sodium 2.5 mg PO MOFR 01/23/19 Surgical History: appendectomy, - - Liver biopsy. Psychiatric History: No pertinent psych hx Lives: With Family - Patient lives with his temo as well as her family. Smoking Status: Current every day smoker - Patient continues to smoke 1 pack/day cigarette tobacco usage. Tobacco Use: Cigarettes Alcohol: None Drugs: None - *Family History Maternal History Items: COPD, Heart Disease Paternal History Items: Unknown - Does not know his paternal medical history. Review of Systems Constitutional: Reports: Anorexia, Fever, Malaise, Weakness, Fatigue. Denies: Chills, Weight Change HEENT: Reports: Sinus Congestion, Sore Throat. Denies: Head Aches, Sinus Draina ge Cardiovascular: Denies: Chest Pain, Palpitations Respiratory: Reports: Cough, Shortness of Breath, Shortness of breath at rest, Shortness of breath upon exertion, Sputum production, Wheezing Gastrointestinal: Reports: Nausea. Denies: Abdominal Pain, Vomiting Genitourinary: Denies: Dysuria Musculoskeletal: Reports: Back Pain, Joint Pain. Denies: Joint Tenderness Skin: Reports: Skin Changes. Denies: Rash, Wounds Neurological: Reports: Slurred speech, Confusion. Denies: Focal weakness, Numbness, Tingling Psychiatric: Denies: Anxiety, Depression, Homicidal Ideations, Suicidal Ideations Hematologic/ Lymphatic: Reports: Easy Bruising, Easy Bleeding VTE Information - Inpt Only VTE Present on Admission: No VTE Mechan Device Prophylaxis: SCD's VTE Pharm Prophylaxis ordered?: No Reason prophylaxis not ordered:: Treatment Not Indicated - Continue Coumadin, INR therapeutic upon presentation. Patient Problems: Active and Suspected Problems CVA (cerebral vascular accident) (Acute) Subjective: Patient seated upright in ED bed, fatigued appearance, markedly slurred speech. Objective: Physical Examination: General: awake, alert, oriented to self, place, month but gave wrong year and wrong president and cooperative, seated upright in the ED bed in no apparent distress, markedly slurred speech. Skin: normal color, turgor, no icterus, cyanosis. HEENT: AT/NC, EOMI, PERRLA, dry MM, no carotid bruits or JVD noted. Lungs: Diminished breath sounds throughout, greater bilateral bases, occasional end expiratory wheeze, no rhonchi or rales. Heart: Regular rate and rhythm; no gallop, rub audible. Abdomen: soft, obese, NTTP, ND, normal BS, no HSM. Extremities: no cyanosis, clubbing, or edema. Neurological: patient awake, alert, oriented as noted; cognitive function not baseline intact; pupils equally reactive to light and accomodation; cranial nerves II-XII grossly normal, moving all 4 extremities, no focal deficits, sensation intact, finger-nose and [id number] appropriate, no drift, negative Babinski, notably slurred speech, strength accordingly moderately to severely global decrease. Psychiatric: affect appears flat, fatigue, no acute evidence of depressive or anxiety feelings. - Physical Exam Vitals/I&O's: Vital Signs Temp Pulse Resp BP Pulse Ox 98.4 F 111 H 24 H 115/69 96 01/23/19 20:00 01/23/19 20:02 01/23/19 20:02 01/23/19 20:00 01/23/19 20:00 Oxygen Flow Rate (L/min) 4 Oxygen Delivery Method Nasal Cannula Weight: 216 lb 7.903 oz Body Mass Index (BMI) 31.9 Intake and Output for Last 24 Hours 01/21/19 01/22/19 01/23/19 23:59 23:59 23:59 Intake Total 1000 / 1000 Balance 1000 / 1000 Microbiology Past 72 Hours 01/23/19 18:45 Mucosa - Nasopharyngeal Influenza Types A,B Direct FA (ARACELI) - Final Laboratory Results 01/23/19 18:10: WBC 8.0, RBC 4.26 L, Hgb 14.4, Hct 42.9, MCV 100.7 H, MCH 33.8 H , MCHC 33.6, RDW Std Deviation 48.1 H, RDW Coeff of Mohsen 13.1, Plt Count 117 L, MPV 10.7, Immature Gran % (Auto) 1.300 H, Neut % (Auto) 57.6, Lymph % (Auto) 17.1 L, [place] % (Auto) 23.5 H, Eos % (Auto) 0.0, Baso % (Auto) 0.5, Absolute Neuts (auto) 4.6, Absolute Lymphs (auto) 1.36, Nucleated RBC % 0, Differential Comment SCANNED 01/23/19 18:10: PT 25.7 H, INR 2.3 01/23/19 18:10: Sodium 132 L, Potassium 4.4, Chloride 95 L, Carbon Dioxide 28.0, Anion Gap 9, BUN 9, Creatinine 0.47 L, Estim Creat Clear Calc 165.05, Est GFR (MDRD) Af Amer 233, Est GFR (MDRD) Non-Af 193, BUN/Creatinine Ratio 19.1, Glucose 109 H, Calcium 8.7, Troponin I < 0.015 01/23/19 18:10: Lactic Acid 1.0 01/23/19 18:10: Valproic Acid 73 01/23/19 19:35: Urine Color Alida, Urine Clarity Clear, Urine pH 7.0, Ur Specific [place] 1.010, Urine Protein 30 H, Urine Glucose (UA) Normal, Urine Ketones 50 H, Urine Occult Blood 25 H, Urine Nitrite Negative, Urine Bilirubin 1 H, Urine Urobilinogen 12 H, Ur Leukocyte Esterase 25 H, Urine RBC 0-5 SEEN, Urine WBC 0-5 SEEN, Ur Squamous Epith Cells 0 SEEN, Ur Transition Epith Cell 0-5 SEEN, Urine Bacteria 0 SEEN, Urine Mucus 1+ Assessment/Plan All Active Problems CVA (cerebral vascular accident) (Acute) COPD exacerbation (Acute) The patient is a 63 y/o M w/ PMHx: Chronic COPD w/ Chronic Hypoxic Respiratory Failure (4-5L NC) following w/ CC Pulmonary, Obesity, HTN, HLD, Depression and Anxiety, Hx DVT/PE on coumadin, Seizure disorder, Tobacco use ongoing who presents to the [facility] [place] ED on 01/23/19 with history of 2 to 3 days of progressively worsening fatigue, weakness generally, dyspnea worse with exertion with mildly productive cough of yellow-shields sputum with ongoing wheezing and chest tightness with decreased appetite, nausea, emesis and subjective fevers in addition to 2 days of ongoing slurred speech but no focal neurological deficits otherwise but global weakness per patient report. He states that he has been able to eat although he has had little appetite but had no difficulty doing so. (1) Slurred speech, Unclear specific etiology, concerning for TIA/CVA: Work-up in the ED included T 98.4, heart rate 109, BP 115/69, respiratory rate 20, 92% on 4 L nasal cannula, CBC with WC 8, hemoglobin 14.4, platelet 117 with increased granulocytes, monocytes, INR 2.3, BMP with sodium 132, chloride 95, BUN/creatinine 9/0.47, glucose 109, valproic acid level 73, EKG with no acute evidence of ischemia, CT head with chronic involutional changes with no acute intracranial findings, chest x-ray with calcified plaques of the thoracic aorta, multiple old bilateral rib fractures with no acute cardiopulmonary findings. Will admit to the PCU and his concurrent slurred speech, will obtain MRI Brain, MRA Head and Neck, ECHO, PT/OT/Speech/Nutrition evaluation per protocol. Will consult Neurology for evaluation. Will allow permissive HTN, maintain on aspirin, Coumadin with INR trending, high-dose statin w/ AM FLP, fall precautions. Mag, TSH, HgbA1c, UDS, NH requested. (2) Acute on chronic COPD exacerbation chronic hypoxic respiratory failure: CXR w/ chronic changes, CBC on admission w/ no market WBC elevation. Will maintain on oxygen with wean as tolerated to home oxygen supplementation, continue ATC duonebs, PRN albuterol, IV methylprednisolone, HOB, IS parameters, defer antibiotics given no market WBC elevation and afebrile with suspected possible viral etiology, respiratory viral panel requested, sputum culture requested. (3) Hypertension: We will hold regimen, permissive pending evaluation #1, add back once appropriate. (4) Hyperlipidemia: Maintained on high-dose statin, FLP in a.m. (5) History of DVT/PE: We will continue on Coumadin, INR trending. (6) Obesity: Weight loss and lifestyle changes encouraged, nutrition consulted. (7) Seizure disorder: We will continue home Depakote regimen. (8) Tobacco Abuse: Encouraged cessation, inpatient consultation per RT, NR if desired. (9) DVT prophylaxis: SCDs, Coumadin with INR trending, therapeutic upon presentation. (10) CODE status: Patient does not have a living will nor healthcare power of mergers and acquisitions attorney per current discussions but he is fatigued. Discussed CODE status at length including difference between FULL code, DNR-CCA and DNR-CC status. Following discussions about the differences in these status, requested full code status. Advanced Care Planning Face to Face Time: 16 minutes. Code Visit Inpatient E&M: 34000 Init Hosp L3 Procedures: 75875 Advncd Care Plan 30 Min
--- NOTE | 2019-01-23 21:10 | ED.VISSUMM ---
- ER Visit Summary Date of Service: 01/23/19 Chief Complaint: Shortness of breath History of Present Illness: The patient is a 63 M presenting with shortness of breath. Patient states this started a couple of days ago. He complains of decreased appetite, shortness of breath, cough, nausea, vomiting, diarrhea. He has had subjective fever and chills. He also states that he has slurred speech for the past 2 days. He had admission 01/04-01/09 for COPD exacerbation. He has chest pain with cough. Denies other complaints. Physical Examination: Vitals are stable. Temperature 99.9. Pulse ox 97% on 4 L. Alert no acute distress. HEENT exam is unremarkable. Neck is supple. Lungs are diminished and wheezing bilaterally. Heart is regular and tachycardic Abdomen is soft nontender nondistended. Extremities are unremarkable. Skin is warm and dry. Dysarthria, normal strength and sensation Remainder of exam is unremarkable. Emergency Department Course and Treatment: Patient was given DuoNeb aerosol. He was given Solu-Medrol IV. CBC normal except platelet 117, chemistries unremarkable except sodium 132. INR 2.3. Urinalysis unremarkable. Troponin is negative. Lactic acid 1.0. EKG sinus tachycardia rate of 118. Chest x-ray shows no acute process. CT head shows chronic changes. Discussed with the hospitalist for admission. Disposition: Admission Impression: TIA versus CVA; COPD exacerbation This note was generated with [employer] dictation software. It may contain incorrect words, spelling, and punctuation that were not noted in review of the chart prior to signing ED Disposition - Plan for ED Patient: Referrals: Josefina Newby MD [Primary Care Provider] -
[2019-01-23] MEDS: MethylPREDNISolone 125 MG/2 ML Vial IV (21:23)
--- NOTE | 2019-01-23 21:55 | ECHOCS_ITS ---
Reason For Study: TIA/CVA Procedure This was a 2D Doppler, Color Flow transthoracic echocardiogram. The study was technically difficult. Contrast injection was performed. Exam performed portable in patient room. Left Ventricle Normal size and thickness. The estimated ejection fraction is 65 %. Stage 1 diastolic dysfunction. No regional wall motion abnormalities noted. Right Ventricle Moderately dilated right ventricle. Normal systolic function. Atria Normal left atrium. Normal right atrium. Normal atrial septum. Bubble contrast study negative for right to left interatrial shunt. Mitral Valve The mitral valve is structurally normal. No prolapse or stenosis seen. Mild mitral annular calcification extending into the posterior leaflet. Tricuspid Valve Normal tricuspid valve. Unable to estimate RV systolic pressure due to insufficient tricuspid regurgitant envelope. Aortic Valve Normal aortic valve. Trisinus/trileaflet aortic valve. Pulmonic Valve Normal pulmonic valve. Great Vessels Normal aortic root. Normal arch. Normal inferior vena cava. Inferior vena cava collapse with sniff. Pericardium/Pleural No pericardial effusion. Medication Diluted definity 4.0ml given slow IV push to enhance endocardial definition. Performed a rapid injection of agitated mix of 9 cc saline and 1cc air to assess for atrial septal defect. Bubble study from subcostal window. MMode/2D Measurements & Calculations LVIDd: 4.3 cm IVSd: 0.91 cm LVIDs: 2.8 cm LVPWd: 0.96 cm LVAd ap4: 33.3 cm2 RVDd: 4.1 cm FS: 33.9 % EDV(MOD-sp4): 106.9 ml EDV(sp4-el): 112.8 ml LVAs ap4: 19.5 cm2 ESV(MOD-sp4): 43.2 ml ESV(sp4-el): 44.0 ml EF(MOD-sp4): 59.6 % EF(sp4-el): 61.0 % SV(MOD-sp4): 63.6 ml SV(sp4-el): 68.8 ml Time Measurements MV dec time: 0.20 sec Doppler Measurements & Calculations MV E max joaquim: 58.4 cm/sec Lat Peak E' Joaquim: 11.1 cm/sec Med Peak E' Joaquim: 6.3 cm/sec MV A max joaquim: 80.2 cm/sec E/E' lat: 5.3 E/E' med: 9.3 MV E/A: 0.73 Ao V2 max: 104.1 cm/sec LV V1 max: 86.9 cm/sec Ao max P.3 mmHg LV V1 max P.0 mmHg Interpretation Summary The estimated ejection fraction is 65 %. Stage 1 diastolic dysfunction. Moderately dilated right ventricle. Bubble contrast study negative for right to left interatrial shunt. Unable to estimate RV systolic pressure due to insufficient tricuspid regurgitant envelope. Compared to echo report dated 12/24/2016, no appreciable changes noted. The study was technically difficult. Contrast injection was performed. Ordering Physician: Savannah Saldana Referring Physician: RHONDA JIMENEZ Performed By: Randi Eaton, IKE, RVT
[2019-01-23 22:29] LABS: Magnesium 1.9 mg/dL (1.6-2.6); Thyroid Stim Hormone (TSH) 1.04 uIU/mL (0.358-3.74)
[2019-01-23 23:02] LABS: AST(SGOT) 21 U/L (15-37); Alanine Aminotransfer ALT/SGPT 24 U/L (16-61); Albumin, Serum 2.8 g/dL (3.2-5.0); Alkaline Phosphatase 81 U/L (45-117); Bilirubin, Direct 0.29 mg/dL (0.00-0.30); Globulin 4.4 g/dL (2.2-4.2); Protein, Total 7.2 g/dL (6.4-8.2)
[2019-01-23] MEDS: guaiFENesin 600 MG Tablet PO (23:03)
[2019-01-23] MEDS: Famotidine 20 MG Tablet PO (23:03)
[2019-01-23] MEDS: 0.9% Normal Saline 1,000 ML 100 ML IV (23:03)
[2019-01-23] MEDS: Gabapentin 300 MG Capsule PO (23:03)
[2019-01-23] MEDS: Atorvastatin Calcium 80 MG Tablet PO (23:03)
[2019-01-23] MEDS: Divalproex (ER) 500 MG Tablet 1000 MG PO (23:03)
[2019-01-23 23:08] LABS: Hemoglobin A1c 5.2 % (4.2-6.3)
[2019-01-23 23:39] LABS: Amphetamine Urine VISTA NEGATIVE (<1000 ng/mL); Barbiturate Urine VISTA NEGATIVE (< 200 ng/mL); Benzodiazepine Urine VISTA NEGATIVE (< 200 ng/mL); Cocaine Urine VISTA NEGATIVE (< 300 ng/mL); Ecstacy Urine VISTA NEGATIVE (< 500 ng/mL); Methadone Urine VISTA NEGATIVE (< 300 ng/mL); PCP Urine VISTA NEGATIVE (< 25 ng/mL); THC Urine VISTA NEGATIVE (< 50 ng/mL); Vista UDS pH Range 6
[2019-01-23 23:43] LABS: Ammonia < 10.0 umol/L (11-32)
[2019-01-23 23:52] LABS: Alcohol, Blood (Medical)-Serum < 3.0 mg/dL
[2019-01-24] VITALS (19 sets, daily range): BP systolic 104–131; BP diastolic 58–77; PULSE 82–101; RESP 12–20; TEMP 36.2–37.2; O2SAT 88–97; BMI 31.9
[2019-01-24 06:10] LABS: Absolute Lymphocyte Count 0.62 X10^3/uL (0.83-4.51); Absolute Neutrophil Count 2.4 X10^3/uL (2.0-7.7); Basophil# 0.01 X10^3/uL; Basophil% 0.3 % (0-1); Hemoglobin 12.8 g/dL (13.0-16.5); Lymphocyte # 0.62 X10^3/ul (4.0); Lymphocyte % 19.2 % (19-41); Mean Corp Hgb Conc 33.7 g/dL (32-36); Mean Corpuscular Volume 100.8 fL (80-94); Mean Platelet Vol. 10.5 fl (6.2-12.0); Monocyte# 0.18 X10^3/uL; Monocyte% 5.6 % (0-10); NRBC Flagged by Analyzer 0 % (0-5); Neutrophil # 2.37 X10^3/uL (2.7-7.7); Neutrophil % 73.4 % (47-70); POSITIVE COUNT YES; POSITIVE MORPHOLOGY YES; Platelet Count 86 K/mm3 (150-450); RBC Distribution Width SD 47.8 fl (35.1-43.9); Red Blood Count 3.77 M/mm3 (4.6-6.2); White Blood Count 3.2 K/mm3 (4.4-11.0)
[2019-01-24 06:19] LABS: International Normalized Ratio 1.7; Prothrombin Time (Protime)PT. 20.1 SECONDS (11.7-14.9)
[2019-01-24 06:25] LABS: Anion Gap 6 (5-15); BUN 8 mg/dL (7-18); BUN/Creat Ratio 19.5 RATIO (10-20); Calcium,Total 8.7 mg/dL (8.5-10.1); Chloride 101 mmol/L (98-107); Cholesterol 152 mg/dL (200); Creatinine, Serum 0.41 mg/dL (0.70-1.30); EST Glomerular Filtration Rate 226 mL/min (>60); Est Glom Filt Rate - Afr Amer 273 mL/min (>60); Glucose 176 mg/dL (74-106); High Density Lipoprotein 43 mg/dL; Potassium 4.3 mmol/L (3.5-5.1); Sodium Level 134 mmol/L (136-145); Triglycerides 128 mg/dL; Very Low Density Lipoprotein 26 mg/dL (5-40)
[2019-01-24] MEDS: Gabapentin 300 MG Capsule PO ×3 (06:30→20:55)
[2019-01-24] MEDS: Divalproex (ER) 500 MG Tablet PO ×2 (06:30→14:46)
[2019-01-24] MEDS: Ipratropium/Albuterol Sulfate 3 ML AMPUL.NEB INHALATION ×5 (06:54→22:51)
[2019-01-24 07:11] LABS: Differential Indicated SCAN CRITERIA MET
[2019-01-24 07:26] LABS: Differential Comment SCANNED; Reactive Lymphocyte 1+
[2019-01-24] MEDS: Furosemide 40 MG Tablet PO (09:14)
[2019-01-24] MEDS: Aspirin 81 MG TAB.CHEW PO (09:14)
[2019-01-24] MEDS: Famotidine 20 MG Tablet PO ×2 (10:18→20:54)
[2019-01-24] MEDS: guaiFENesin 600 MG Tablet PO ×3 (10:18→20:55)
--- NOTE | 2019-01-24 11:50 | PN_ITS ---
Patient Problems: Active and Suspected Problems CVA (cerebral vascular accident) (Acute) Subjective: Patient seen and examined. He complained of slurred speech and double vision. He also complains of some lower abdominal pain. Review of systems otherwise negative. Labs and vitals reviewed. He is for MRI of the brain and MRA of the head and neck today. Neurology is on board. Vitals/I&O's: Vital Signs Temp Pulse Resp BP Pulse Ox 98.2 F 90 16 127/74 H 91 01/24/19 10:26 01/24/19 10:45 01/24/19 10:45 01/24/19 10:26 01/24/19 10:26 Oxygen Flow Rate (L/min) 4 Oxygen Delivery Method Nasal Cannula Weight: 199 lb 1.239 oz Body Mass Index (BMI) 31.9 Intake and Output for Last 24 Hours 01/22/19 01/23/19 01/24/19 23:59 23:59 23:59 Intake Total 1000 / 1000 1320 / 1320 Output Total 200 / 200 Balance 1000 / 1000 1120 / 1120 General: Alert, Oriented x3, Cooperative, Lethargic HEENT: Atraumatic, PERRLA, EOMI, Normocephalic Oral: Dry Mucosa Neck: Supple, No JVD, Negative Carotid Bruits Lungs: Clear to auscultation, Normal air movement, No rhonchi, No wheeze Cardiovascular: Regular rate, Regular Rhythm, Normal S1, Normal S2, No murmurs Abdomen: Bowel Sounds Present, Soft, Non Tender Extremities: No clubbing, No cyanosis, No edema, Capillary Refill Less than 3 Seconds Skin: No rashes, No breakdown Musculoskeletal: No Tenderness to Palpation of Joints or Extremities Lymphatic: No Cervical, Supraclavicular, or Inguinal Adenopathy Neurological: - - has double vision in both eyes, has slurred speech, power in LE is 4-/5. normal sensation to light touch and pinprick; reflexes normal Psych/Mental Status: Normal Affect, Appropriate, Alert and oriented to time, place, person, mood and affect Microbiology Past 72 Hours 01/24/19 06:02 Sputum, Expectorated/Coughed Gram Stain - Final 01/23/19 23:40 Mucosa - Nose Respiratory Panel (PCR) - Final 01/23/19 18:45 Mucosa - Nasopharyngeal Influenza Types A,B Direct FA (ARACELI) - Final Laboratory Results 01/23/19 18:10: WBC 8.0, RBC 4.26 L, Hgb 14.4, Hct 42.9, MCV 100.7 H, MCH 33.8 H , MCHC 33.6, RDW Std Deviation 48.1 H, RDW Coeff of Mohsen 13.1, Plt Count 117 L, MPV 10.7, Immature Gran % (Auto) 1.300 H, Neut % (Auto) 57.6, Lymph % (Auto) 17.1 L, Starke % (Auto) 23.5 H, Eos % (Auto) 0.0, Baso % (Auto) 0.5, Absolute Neuts (auto) 4.6, Absolute Lymphs (auto) 1.36, Nucleated RBC % 0, Differential Comment SCANNED 01/23/19 18:10: PT 25.7 H, INR 2.3 01/23/19 18:10: Sodium 132 L, Potassium 4.4, Chloride 95 L, Carbon Dioxide 28.0, Anion Gap 9, BUN 9, Creatinine 0.47 L, Estim Creat Clear Calc 165.05, Est GFR (MDRD) Af Amer 233, Est GFR (MDRD) Non-Af 193, BUN/Creatinine Ratio 19.1, Glucose 109 H, Calcium 8.7, Troponin I < 0.015 01/23/19 18:10: Lactic Acid 1.0 01/23/19 18:10: Valproic Acid 73 01/23/19 18:10: Magnesium 1.9, TSH 1.04 01/23/19 18:10: Hemoglobin A1c 5.2 01/23/19 18:10: Total Bilirubin 0.70, Direct Bilirubin 0.29, AST 21, ALT 24, Alkaline Phosphatase 81, Total Protein 7.2, Albumin 2.8 L, Globulin 4.4 H 01/23/19 19:35: Urine Color Alida, Urine Clarity Clear, Urine pH 7.0, Ur Specific [place] 1.010, Urine Protein 30 H, Urine Glucose (UA) Normal, Urine Ketones 50 H, Urine Occult Blood 25 H, Urine Nitrite Negative, Urine Bilirubin 1 H, Urine Urobilinogen 12 H, Ur Leukocyte Esterase 25 H, Urine RBC 0-5 SEEN, Urine WBC 0-5 SEEN, Ur Squamous Epith Cells 0 SEEN, Ur Transition Epith Cell 0-5 SEEN, Urine Bacteria 0 SEEN, Urine Mucus 1+ 01/23/19 19:35: Urine Opiates Screen NEGATIVE, Urine Methadone Screen NEGATIVE, Ur Barbiturates Screen NEGATIVE, Ur Phencyclidine Scrn NEGATIVE, Ur Amphetamines Screen NEGATIVE, U Methamphetamin-MDMA NEGATIVE, U Benzodiazepines Scrn NEGATIVE, Urine Cocaine Screen NEGATIVE, U Cannabinoids Screen NEGATIVE, Ur Drug Screen Comment 01/23/19 23:05: Ammonia < 10.0 L 01/23/19 23:05: Ethyl Alcohol < 3.0 01/24/19 05:30: WBC 3.2 L, RBC 3.77 L, Hgb 12.8 L, Hct 38.0 L, MCV 100.8 H, MCH 34.0 H, MCHC 33.7, RDW Std Deviation 47.8 H, RDW Coeff of Mohsen 13.0, Plt Count 86 L, MPV 10.5, Immature Gran % (Auto) 1.500 H, Neut % (Auto) 73.4 H, Lymph % (Auto) 19.2, Starke % (Auto) 5.6, Eos % (Auto) 0.0, Baso % (Auto) 0.3, Absolute Neuts (auto) 2.4, Absolute Lymphs (auto) 0.62 L, Nucleated RBC % 0, Differential Comment SCANNED, Reactive Lymphocytes 1+ 01/24/19 05:30: Sodium 134 L, Potassium 4.3, Chloride 101, Carbon Dioxide 27.0, Anion Gap 6, BUN 8, Creatinine 0.41 L, Estim Creat Clear Calc 189.20, Est GFR (MDRD) Af Amer 273, Est GFR (MDRD) Non-Af 226, BUN/Creatinine Ratio 19.5, Glucose 176 H, Calcium 8.7, Triglycerides 128, Cholesterol 152, LDL Cholesterol 83, VLDL Cholesterol 26, HDL Cholesterol 43 01/24/19 05:30: PT 20.1 H, INR 1.[address] 01/23/19 18:35 IMPRESSION: Chronic involutional changes of the brain. Electronically Signed: Ford Craig MD at 19:28 EST , Service support , Chest X-Ray 01/23/19 18:37 IMPRESSION: Calcified plaques of the thoracic aorta. Multiple old bilateral rib fractures. No acute cardiopulmonary disease process is seen. Electronically Signed: Ford Craig MD at 18:56 EST , Service support , Current Medications Acetaminophen (Tylenol) 650 mg PO Q6H PRN PRN PRN Reason: Non-cardiac pain (-12/14) Al Hydroxide/Mg Hydroxide (Mylanta Ii) 15 - 30 ml PO Q4H PRN PRN PRN Reason: INDIGESTION Albuterol Sulfate (Ventolin Aerosols) 2.5 mg INHALATION Q2H PRN PRN PRN Reason: dyspnea, wheezing Albuterol/Ipratropium (Duoneb) 3 ml INHALATION Q4HWA.RT [facility] Last Admin: 01/24/19 10:45 Dose: 3 ml Documented by: Aspirin (Aspirin, Baby) 81 mg PO DAILY@0800 [facility] Last Admin: 01/24/19 09:14 Dose: 81 mg Documented by: Atorvastatin Calcium (Lipitor) 80 mg PO QHS [facility] Last Admin: 01/23/19 23:03 Dose: 80 mg Documented by: Dextrose (D50w Syringe) 0 gm IV X1 PRN; Protocol PRN Reason: Hypoglycemia Divalproex Sodium (Depakote Er) 500 mg PO 0700,1300 [facility] Last Admin: 01/24/19 06:30 Dose: 500 mg Documented by: Divalproex Sodium (Depakote Er) 1,000 mg PO QHS [facility] Last Admin: 01/23/19 23:03 Dose: 1,000 mg Documented by: Famotidine (Pepcid) 20 mg PO BID [facility] Last Admin: 01/24/19 10:18 Dose: 20 mg Documented by: Furosemide (Lasix) 40 mg PO BREAKFAST [facility] Last Admin: 01/24/19 09:14 Dose: 40 mg Documented by: Furosemide (Lasix) 20 mg PO LUNCH [facility] Gabapentin (Neurontin) 300 mg PO TID [facility] Last Admin: 01/24/19 06:30 Dose: 300 mg Documented by: Glucagon () 1 mg IM .X1 PRN PRN Reason: Hypoglycemia Guaifenesin (Mucinex) 600 mg PO BID [facility] Last Admin: 01/24/19 10:18 Dose: 600 mg Documented by: Sodium Chloride () 250 mls @ 15 mls/hr IV .[id number] PRN PRN Reason: Saline Flush Labetalol HCl (Trandate) 10 mg IV Q10M PRN PRN Reason: MAINTAIN BP < 220/120 Stop: 01/24/19 21:56 Magnesium Hydroxide (Milk Of Magnesia) 30 ml PO DAILY PRN PRN Reason: Constipation Methylprednisolone (Solu-Medrol) 40 mg IV Q8 [facility] Last Admin: 01/24/19 06:30 Dose: 40 mg Documented by: Nicotine (Nicoderm Cq (Pbkc)) 21 mg TRANSDERM. DAILY [facility] Last Admin: 01/24/19 10:18 Dose: 21 mg Documented by: Nitroglycerin (Nitrostat) 0.4 mg SUBLINGUAL Q5M PRN PRN Reason: CARDIAC/CHEST PAIN Nutritional Formula (Lactose Free) (Ensure Enlive) 120 ml PO 4X/DAY [facility] Last Admin: 01/24/19 10:23 Dose: 120 ml Documented by: Ondansetron HCl (Zofran) 4 mg IV Q8H PRN PRN PRN Reason: NAUSEA/VOMITING Sodium Chloride () 10 - 40 ml IV UD PRN PRN Reason: SALINE FLUSH Throat Lozenges (Cepacol Sore Throat Lozenge) 1 lozenge MUCOUS MEM Q2H PRN PRN PRN Reason: COUGH Warfarin Sodium (Coumadin (Pbkc)) 5 mg PO SuTuWeThSa@1700 [facility] Warfarin Sodium (Coumadin (Pbkc)) 2.5 mg PO MoFr@1700 [facility] STROKE Vital Signs/Narrative: Vital Signs Temp Pulse Resp BP Pulse Ox 01/24/19 10:45 90 16 01/24/19 10:26 98.2 F 90 18 127/74 H 91 01/24/19 08:01 18 Medical Necessity - Tobacco Use Smoking Status: Current every day smoker Tobacco Use: Cigarettes Assessment/Plan All Active Problems CVA (cerebral vascular accident) (Acute) COPD exacerbation (Acute) 1. Slurred speech and double vision * etiology is not very clear; It is unlikely it is a TIA as symptoms are still persistent * brain CT as negative for any acute intracranial process * MRI of brain and MRA of head and neck pending * neurology on board * on aspirin, and statin * 2D echo pending * PT/OT and speech therapy consulted * fall precautions * ammonia level was also <10 * 2. hypertensionL: Controlled. Current meds on hold to allow for permissive hypertension as he was thought to possibly have a stroke. Resume BP meds. 3. Hyperlipidemia: On high-dose statin. Lipid panel was within normal limits. 4. ? Acute COPD exacerbation: * Patient currently on 4 L of oxygen which is his baseline. * His lungs are clear he does not seem to be in exacerbation. * On breathing treatments and IV Solu-Medrol. * Respiratory panel and culture are negative and influenza screen is also negative. 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 INR was 1.7 today. 6. Seizure disorder: * On Depakote. * Per discussion with neurology, since there is crossreaction to Depakote and Coumadin, will be a good idea to switch patient to newer oral anticoagulants. * Will check to see if there is insurance coverage for the newer anticoagulants * 7 Nicotine dependence: Counseled on cessation. DVT Prophylaxis: On Coumadin. INR today is 1.7 Code Visit Inpatient E&M: 16543 Subs Hosp L3
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
--- NOTE | 2019-01-24 12:20 | MRI_ITS ---
STUDY: MRA OF THE HEAD WITHOUT CONTRAST REASON FOR EXAM: Male, 63 years old. CVA. Slurred speech, weakness, fatigue. TECHNIQUE: 3-D [id number] (TOF) imaging was performed with MIPs. The study was performed unenhanced. COMPARISON: 06/20/2015. FINDINGS: Bilateral petrous and cavernous carotid arteries are unremarkable. Normal A1 segments of the anterior cerebral arteries bilaterally. Hypoplastic anterior communicating artery. Visualized A2 segments of the anterior cerebral arteries are unremarkable. No aneurysm, dissection, stenosis, or occlusion. Normal right M1 and M2 segments of the middle cerebral arteries, with a normal M1 bifurcation. Normal left M1 and M2 segments of the middle cerebral arteries, with a normal M1 bifurcation. Hypoplastic or aplastic posterior communicating arteries. Normal bilateral vertebral arteries. Normal basilar artery with a normal basilar bifurcation. The visualized bilateral superior cerebellar (SCA) arteries are normal. Normal bilateral P1, P2 and visualized P3 segments of the posterior cerebral arteries. There is no demonstrated aneurysm of the kashia of [place]. There is no major vessel occlusion or significant stenosis. MRI/MRA Head ONLY without Contrast IMPRESSION: Normal MRA of the head. No demonstrated aneurysm, dissection, stenosis, or occlusion. Electronically Signed: Renetta Diaz MD at 16:09 EST Tel , Service support ,
--- NOTE | 2019-01-24 12:20 | MRI_ITS ---
STUDY: MRA NECK WITHOUT CONTRAST REASON FOR EXAM: Male, 63 years old. CVA. Slurred speech, weakness, fatigue. TECHNIQUE: Source images were obtained, MIPs were performed. The study was performed unenhanced. COMPARISON: None. FINDINGS: This study is limited by patient motion. RIGHT CAROTID ARTERIES: Normal right common carotid artery (CCA). Normal right common carotid bulb. Normal origin of the right internal carotid (ICA) artery without a significant stenosis. Normal visualized cervical portion of the right internal carotid artery. Normal origin of the right external carotid artery (ECA). LEFT CAROTID ARTERIES: Normal left common carotid artery (CCA). Normal left common carotid bulb. Normal origin of the left internal carotid (ICA) artery without a significant stenosis. Normal visualized cervical portion of the left internal carotid artery. Normal origin of the left external carotid artery (ECA). VERTEBRAL ARTERIES: Unremarkable vertebral arteries. MRI/MRA Neck without Contrast IMPRESSION: Normal bilateral cervical carotid and vertebral arteries. Electronically Signed: Renetta Diaz MD at 16:15 EST Tel , Service support ,
--- NOTE | 2019-01-24 12:30 | MRI_ITS ---
STUDY: MRI BRAIN WITHOUT CONTRAST REASON FOR EXAM: Male, 63 years old. CVA, slurred speech TECHNIQUE: Standardized multiplanar fat and water weighted pulse sequences were obtained. COMPARISON: Brain MRI 12/13/2018. FINDINGS: There is mild cerebral atrophy with widening of the extra-axial spaces and ventricular dilatation. There are a limited number of small white matter hyperintensities, distributed throughout the deep white matter tracts of the cerebral hemispheres, consistent with mild chronic white matter ischemic changes. There is no evidence for recent intracranial ischemia or other cause of cytotoxic edema on diffusion weighted imaging (DWI). Normal T2* images of the brain without demonstrated susceptibility artifact. There is no demonstrated hemosiderin stain. Normal bilateral basal ganglia. Normal thalami. There is no extra-axial fluid accumulation. Normal flow voids within the major intracranial circulation suggesting patency by spin echo criteria. Normal sella turcica, pituitary gland, infundibular stalk, optic chiasm and hypothalamus. Normal tectal plate and pineal gland. Normal midbrain, santos and medulla. Normal cerebellum. Normal basal cisterns. Normal bilateral temporal bones. Normal bilateral internal auditory canals. No demonstrated orbital abnormality, within the constraints of a routine brain study. Normal visualized paranasal sinuses. Normal calvarium and skull base. Normal visualized soft tissue structures. Normal visualized upper cervical spine. MRI/Brain without Contrast IMPRESSION: No acute infarct or intracranial hemorrhage. Mild involutional changes of the brain, as described above. Electronically Signed: Isaihammad Coleman, at 15:29 EST Tel , Service support ,
--- NOTE | 2019-01-24 12:35 | PCA ---
[facility] called to let us know that the patient is active with them for HH.
--- NOTE | 2019-01-24 12:54 | CHAPLAIN ---
Type of Pastoral Visit _x__ Initial Visit ___ Follow-up Visit ___ On-call Visit ___ General Patient Visit ___ Spiritual Assessment ___ Family Conference ___ Bereavement ___ Rapid Response ___ Code Blue ___ Other (describe below) Pastoral Care Referral From _x__ Patient ___ Family ___ Nurse ___ Physician ___ Radiology Equipment Servicer ___ Sorting Supervisor ___ Other (describe below) Sacrament/Intervention _x__ Active listening ___ Anointing ___ Yazidism ___ Bereavement ___ Communion _x__ Gabby exploration ___ ___ Life review _x__ Prayer ___ Reconciliation ___ Sacrament of Sick _x__ Supportive presence ___ Wedding ___ Other (describe below) Pastoral Comments patient expresses concern about his spiritual status and requests support and prayer
--- NOTE | 2019-01-24 14:22 | CASEMGMT ---
Addendum entered by Lashay Stover 01/24/19 15:00: [facility] is aware of pt admission. Minal PADILLA CM Original Note: Readmission chart review: Pt was initially admitted 01/04-01/09/19 on MS3 for COPD exacerbation. Pt was already current with [facility] for home oxygen at 5 liters and trilogy prior to this visit. Pt did have [facility] setup at discharge with [facility] for RN, PT/OT and a referral was faxed to [facility] but pt declined CCN once home. Call to [facility] and pt is still active with them at this time and resumption of care order placed in computer at this time. Pt states that he did f/u with PCP on 01/16/19 and that he has been taking meds and using oxygen/trilogy as prescribed. Pt readmitted 01/23/19 for COPD/slurred speech. CM to follow for MRI results and any further discharge planning/needs. Minal PADILLA CM
[2019-01-24] MEDS: Furosemide 20 MG Tablet PO (14:46)
--- NOTE | 2019-01-24 15:39 | CASEMGMT ---
SW did not complete a PHQ 9 as per Neurologist he did not have a Stroke or TIA. Jane GOVEA MSW
[2019-01-24] MEDS: Acetaminophen 325 MG Tablet 650 MG PO (17:42)
[2019-01-24] MEDS: Ibuprofen 400 MG Tablet PO (20:54)
[2019-01-24] MEDS: Atorvastatin Calcium 80 MG Tablet PO (20:54)
[2019-01-24] MEDS: Divalproex (ER) 500 MG Tablet 1000 MG PO (20:55)
[2019-01-24] MEDS: 0.9% Saline Lock 10 ML Syringe IV (20:55)
[2019-01-25] VITALS (19 sets, daily range): BP systolic 113–146; BP diastolic 61–79; PULSE 77–104; RESP 12–24; TEMP 36.2–36.8; O2SAT 91–97; BMI 31.9
[2019-01-25] MEDS: 0.9% Saline Lock 10 ML Syringe IV ×2 (06:10→21:41)
[2019-01-25] MEDS: Divalproex (ER) 500 MG Tablet PO ×2 (06:10→12:38)
[2019-01-25] MEDS: Gabapentin 300 MG Capsule PO ×3 (06:10→21:42)
[2019-01-25] MEDS: Magnesium Hydroxide 30 ML UDC PO (06:14)
[2019-01-25] MEDS: Ipratropium/Albuterol Sulfate 3 ML AMPUL.NEB INHALATION ×4 (07:10→21:06)
[2019-01-25 08:01] LABS: Absolute Lymphocyte Count 0.88 X10^3/uL (0.83-4.51); Absolute Neutrophil Count 8.2 X10^3/uL (2.0-7.7); Basophil# 0.01 X10^3/uL; Basophil% 0.1 % (0-1); Hematocrit 37.2 % (40-54); Hemoglobin 12.5 g/dL (13.0-16.5); Lymphocyte # 0.88 X10^3/ul (4.0); Lymphocyte % 8.9 % (19-41); Mean Corp Hgb Conc 33.6 g/dL (32-36); Mean Corpuscular Volume 101.1 fL (80-94); Mean Platelet Vol. 10.9 fl (6.2-12.0); Monocyte% 7.1 % (0-10); NRBC Flagged by Analyzer 0 % (0-5); Neutrophil # 8.22 X10^3/uL (2.7-7.7); Neutrophil % 83.3 % (47-70); Platelet Count 101 K/mm3 (150-450); RBC Distribution Width CV 13.1 % (11.6-14.6); RBC Distribution Width SD 49.1 fl (35.1-43.9); Red Blood Count 3.68 M/mm3 (4.6-6.2); White Blood Count 9.9 K/mm3 (4.4-11.0)
[2019-01-25 08:17] LABS: Anion Gap 7 (5-15); BUN 17 mg/dL (7-18); BUN/Creat Ratio 33.1 RATIO (10-20); Calcium,Total 9.1 mg/dL (8.5-10.1); Chloride 100 mmol/L (98-107); Creatinine, Serum 0.51 mg/dL (0.70-1.30); EST Glomerular Filtration Rate 174 mL/min (>60); Est Glom Filt Rate - Afr Amer 211 mL/min (>60); Estimated Creatinine Clearance 152.11 ml/min; Glucose 173 mg/dL (74-106); Potassium 4.2 mmol/L (3.5-5.1); Sodium Level 136 mmol/L (136-145)
[2019-01-25] MEDS: Furosemide 40 MG Tablet PO (09:02)
[2019-01-25] MEDS: Aspirin 81 MG TAB.CHEW PO (09:02)
[2019-01-25] MEDS: Famotidine 20 MG Tablet PO ×2 (09:02→21:41)
[2019-01-25] MEDS: guaiFENesin 600 MG Tablet PO ×2 (09:06→21:41)
--- NOTE | 2019-01-25 09:45 | RAD_ITS ---
STUDY: X-RAY CHEST REASON FOR EXAM: Male, 63 years old. Shortness of breath TECHNIQUE: AP and lateral views of the chest. COMPARISON: 01/23/2019 FINDINGS: There are hazy infiltrates at the right lung base.. There is no demonstrated pleural abnormality. Normal size heart. Normal mediastinum and angie. Normal visualized pulmonary arteries. Normal visualized aortic arch and descending thoracic aorta. Normal visualized thoracic spine. Normal visualized ribs, clavicles, and shoulders. There is no demonstrated abnormality of the visualized soft tissue structures of the upper abdomen. RAD/Chest PA and Lateral IMPRESSION: Hazy infiltrates at the right lung base may represent atelectasis or pneumonia in the proper clinical setting. Electronically Signed: Andrew Coleman, at 10:46 EST Tel , Service support ,
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
[2019-01-25] MEDS: Furosemide 20 MG Tablet PO (12:38)
--- NOTE | 2019-01-25 13:21 | PCM.PROGNOTE ---
<Holly Mabry - Last Filed: 01/25/19 14:00> Patient Problems: Active and Suspected Problems CVA (cerebral vascular accident) (Acute) Slurred speech (Acute) Subjective: Patient seen and examined. Continues to complain of slurred speech and visual disturbances. Reports continued shortness of breath with intermittent productive cough. Denies fever, chills. - Physical Exam Vitals/I&O's: Vital Signs Temp Pulse Resp BP Pulse Ox 97.7 F L 96 16 114/61 91 01/25/19 12:51 01/25/19 12:51 01/25/19 12:51 01/25/19 12:51 01/25/19 12:51 Oxygen Flow Rate (L/min) 6 Oxygen Delivery Method Nasal Cannula Weight: 199 lb 1.239 oz Body Mass Index (BMI) 31.9 Intake and Output for Last 24 Hours 01/23/19 01/24/19 01/25/19 23:59 23:59 23:59 Intake Total 1000 / 1000 2140 / 2240 100 / 100 Output Total 650 / 900 725 / 725 Balance 1000 / 1000 1490 / 1340 -625 / -625 General: Alert, Oriented x3, Cooperative HEENT: Atraumatic, PERRLA, EOMI, Normocephalic Oral: Dry Mucosa Neck: Supple, No JVD, Negative Carotid Bruits Lungs: Clear to auscultation, Diminished Cardiovascular: Regular rate, Regular Rhythm, Normal S1, Normal S2, No murmurs Abdomen: Bowel Sounds Present, Soft, Non Tender, Non-Distended Extremities: No clubbing, No cyanosis, No edema, Capillary Refill Less than 3 Seconds Skin: No rashes, No breakdown Musculoskeletal: No Tenderness to Palpation of Joints or Extremities Neurological: Cranial nerves II-XII grossly intact, Neuro grossly intact Psych/Mental Status: Normal Affect, Appropriate Microbiology Past 72 Hours 01/24/19 06:02 Sputum, Expectorated/Coughed Gram Stain - Final 01/24/19 06:02 Sputum, Expectorated/Coughed Respiratory Culture - Preliminary Appears to be normal respiratory angelika. Further studies to follow. 01/23/19 23:40 Mucosa - Nose Respiratory Panel (PCR) - Final 01/23/19 18:45 Mucosa - Nasopharyngeal Influenza Types A,B Direct FA (ARACELI) - Final Laboratory Results 01/25/19 07:15: WBC 9.9, RBC 3.68 L, Hgb 12.5 L, Hct 37.2 L, MCV 101.1 H, MCH 34.0 H, MCHC 33.6, RDW Std Deviation 49.1 H, RDW Coeff of Mohsen 13.1, Plt Count 101 L, MPV 10.9, Immature Gran % (Auto) 0.600, Neut % (Auto) 83.3 H, Lymph % (Auto) 8.9 L, [place] % (Auto) 7.1, Eos % (Auto) 0.0, Baso % (Auto) 0.1, Absolute Neuts (auto) 8.2 H, Absolute Lymphs (auto) 0.88, Nucleated RBC % 0 01/25/19 07:15: Sodium 136, Potassium 4.2, Chloride 100, Carbon Dioxide 29.0, Anion Gap 7, BUN 17, Creatinine 0.51 L, Estim Creat Clear Calc 152.11, Est GFR (MDRD) Af Amer 211, Est GFR (MDRD) Non-Af 174, BUN/Creatinine Ratio 33.1 H, Glucose 173 H, Calcium 9.1 Current Medications Acetaminophen (Tylenol) 650 mg PO Q6H PRN PRN PRN Reason: Non-cardiac pain (-12/14) Last Admin: 01/24/19 17:42 Dose: 650 mg Documented by: Al Hydroxide/Mg Hydroxide (Mylanta Ii) 15 - 30 ml PO Q4H PRN PRN PRN Reason: INDIGESTION Albuterol Sulfate (Ventolin Aerosols) 2.5 mg INHALATION Q2H PRN PRN PRN Reason: dyspnea, wheezing Albuterol/Ipratropium (Duoneb) 3 ml INHALATION Q4HWA.RT [facility] Last Admin: 01/25/19 11:18 Dose: 3 ml Documented by: Aspirin (Aspirin, Baby) 81 mg PO DAILY@0800 [facility] Last Admin: 01/25/19 09:02 Dose: 81 mg Documented by: Atorvastatin Calcium (Lipitor) 80 mg PO QHS [facility] Last Admin: 01/24/19 20:54 Dose: 80 mg Documented by: Dextrose (D50w Syringe) 0 gm IV X1 PRN; Protocol PRN Reason: Hypoglycemia Divalproex Sodium (Depakote Er) 500 mg PO 0700,1300 [facility] Last Admin: 01/25/19 12:38 Dose: 500 mg Documented by: Divalproex Sodium (Depakote Er) 1,000 mg PO QHS [facility] Last Admin: 01/24/19 20:55 Dose: 1,000 mg Documented by: Famotidine (Pepcid) 20 mg PO BID [facility] Last Admin: 01/25/19 09:02 Dose: 20 mg Documented by: Furosemide (Lasix) 40 mg PO BREAKFAST [facility] Last Admin: 01/25/19 09:02 Dose: 40 mg Documented by: Furosemide (Lasix) 20 mg PO LUNCH [facility] Last Admin: 01/25/19 12:38 Dose: 20 mg Documented by: Gabapentin (Neurontin) 300 mg PO TID [facility] Last Admin: 01/25/19 12:39 Dose: 300 mg Documented by: Glucagon () 1 mg IM .X1 PRN PRN Reason: Hypoglycemia Guaifenesin (Mucinex) 600 mg PO BID [facility] Last Admin: 01/25/19 09:06 Dose: 600 mg Documented by: Sodium Chloride () 250 mls @ 15 mls/hr IV .[id number] PRN PRN Reason: Saline Flush Ibuprofen (Motrin) 400 mg PO Q8H PRN PRN PRN Reason: mild to moderate pain, fever Last Admin: 01/24/19 20:54 Dose: 400 mg Documented by: Magnesium Hydroxide (Milk Of Magnesia) 30 ml PO DAILY PRN PRN Reason: Constipation Last Admin: 01/25/19 06:14 Dose: 30 ml Documented by: Methylprednisolone (Solu-Medrol) 40 mg IV Q8 [facility] Last Admin: 01/25/19 12:39 Dose: 40 mg Documented by: Nicotine (Nicoderm Cq (Pbkc)) 21 mg TRANSDERM. DAILY [facility] Last Admin: 01/25/19 09:03 Dose: 21 mg Documented by: Nitroglycerin (Nitrostat) 0.4 mg SUBLINGUAL Q5M PRN PRN Reason: CARDIAC/CHEST PAIN Nutritional Formula (Lactose Free) (Ensure Enlive) 120 ml PO 4X/DAY [facility] Last Admin: 01/25/19 12:45 Dose: 120 ml Documented by: Ondansetron HCl (Zofran) 4 mg IV Q8H PRN PRN PRN Reason: NAUSEA/VOMITING Sodium Chloride () 10 - 40 ml IV UD PRN PRN Reason: SALINE FLUSH Last Admin: 01/25/19 06:10 Dose: 10 ml Documented by: Throat Lozenges (Cepacol Sore Throat Lozenge) 1 lozenge MUCOUS MEM Q2H PRN PRN PRN Reason: COUGH Warfarin Sodium (Coumadin (Pbkc)) 5 mg PO SuTuWeThSa@1700 [place] Warfarin Sodium (Coumadin (Pbkc)) 2.5 mg PO MoFr@1700 [place] Medical Necessity - Tobacco Use Smoking Status: Former smoker Tobacco Use: Cigarettes Assessment/Plan All Active Problems CVA (cerebral vascular accident) (Acute) Slurred speech (Acute) COPD exacerbation (Acute) 1. Acute on chronic COPD exacerbation with chronic hypoxic respiratory failure- chest x-ray this morning with hazy infiltrate versus atelectasis in the right lung base. Respiratory panel negative. Sputum culture pending, preliminary shows normal respiratory angelika. Afebrile, no leukocytosis. Low suspicion for underlying pneumonia. Continue IV Solu-Medrol. Continue supplement oxygen to maintain O2 at or above 90%. Patient wears 4 L nasal cannula at baseline. Currently requiring 6 L nasal cannula. PT/OT. PT recommending additional therapy. SNF recommended at prior to discharge. Case management following for discharge planning. 2. TIA/CVA ruled out-MRI of brain showed nothing acute. MRA of head and neck showed no significant stenosis or occlusion. Neurology consulted, suspect symptoms secondary to underlying metabolic issues as a result of #1. Discontinue aspirin. Patient continues to complain of slurred speech and double vision. Unclear etiology. Patient will need follow-up with ophthalmology at discharge. 3. Hypertension-stable, continue home Lasix regimen. 4. Hyperlipidemia-continue statin. 5. 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 Transition to Eliquis due to concern for cross reaction with Depakote and Coumadin. Patient appears to have been on Coumadin long-term for remote history of DVT/PE however history of this is not entirely clear. Will begin Eliquis 2.5 mg twice daily for preventative DVT recurrence. Recommend follow-up with primary care physician to see if long-term anticoagulation is necessary. 6. Seizure disorder-continue Depakote. 7. Tobacco dependence-encourage cessation, nicotine replacement patch. 8. Obesity-encouraged diet lifestyle modifications. DVT prophylaxis-Coumadin, transition to Eliquis This patient was seen by Holly Raghavendra, [employer] [facility] under the supervision of Dr. Arteaga. <MikelpipeAlia - Last Filed: 01/25/19 16:14> - Physical Exam Vitals/I&O's: Vital Signs Temp Pulse Resp BP Pulse Ox 97.7 F L 90 16 114/61 91 01/25/19 12:51 01/25/19 15:15 01/25/19 15:15 01/25/19 12:51 01/25/19 12:51 Oxygen Flow Rate (L/min) 6 Oxygen Delivery Method Nasal Cannula Weight: 199 lb 1.239 oz Body Mass Index (BMI) 31.9 Intake and Output for Last 24 Hours 01/23/19 01/24/19 01/25/19 23:59 23:59 23:59 Intake Total 1000 / 1000 2140 / 2240 100 / 100 Output Total 650 / 900 725 / 725 Balance 1000 / 1000 1490 / 1340 -625 / -625 Microbiology Past 72 Hours 01/24/19 06:02 Sputum, Expectorated/Coughed Gram Stain - Final 01/24/19 06:02 Sputum, Expectorated/Coughed Respiratory Culture - Preliminary Appears to be normal respiratory angelika. Further studies to follow. 01/23/19 23:40 Mucosa - Nose Respiratory Panel (PCR) - Final 01/23/19 18:45 Mucosa - Nasopharyngeal Influenza Types A,B Direct FA (ARACELI) - Final Laboratory Results 01/25/19 07:15: WBC 9.9, RBC 3.68 L, Hgb 12.5 L, Hct 37.2 L, MCV 101.1 H, MCH 34.0 H, MCHC 33.6, RDW Std Deviation 49.1 H, RDW Coeff of Mohsen 13.1, Plt Count 101 L, MPV 10.9, Immature Gran % (Auto) 0.600, Neut % (Auto) 83.3 H, Lymph % (Auto) 8.9 L, [place] % (Auto) 7.1, Eos % (Auto) 0.0, Baso % (Auto) 0.1, Absolute Neuts (auto) 8.2 H, Absolute Lymphs (auto) 0.88, Nucleated RBC % 0 01/25/19 07:15: Sodium 136, Potassium 4.2, Chloride 100, Carbon Dioxide 29.0, Anion Gap 7, BUN 17, Creatinine 0.51 L, Estim Creat Clear Calc 152.11, Est GFR (MDRD) Af Amer 211, Est GFR (MDRD) Non-Af 174, BUN/Creatinine Ratio 33.1 H, Glucose 173 H, Calcium 9.1 Current Medications Acetaminophen (Tylenol) 650 mg PO Q6H PRN PRN PRN Reason: Non-cardiac pain (4-1010) Last Admin: 01/25/19 15:13 Dose: 650 mg Documented by: Al Hydroxide/Mg Hydroxide (Mylanta Ii) 15 - 30 ml PO Q4H PRN PRN PRN Reason: INDIGESTION Albuterol Sulfate (Ventolin Aerosols) 2.5 mg INHALATION Q2H PRN PRN PRN Reason: dyspnea, wheezing Albuterol/Ipratropium (Duoneb) 3 ml INHALATION Q4HWA.RT [facility] Last Admin: 01/25/19 15:14 Dose: 3 ml Documented by: Apixaban (Eliquis) 2.5 mg PO BID [facility] Atorvastatin Calcium (Lipitor) 80 mg PO QHS [facility] Last Admin: 01/24/19 20:54 Dose: 80 mg Documented by: Dextrose (D50w Syringe) 0 gm IV X1 PRN; Protocol PRN Reason: Hypoglycemia Divalproex Sodium (Depakote Er) 500 mg PO 0700,1300 [facility] Last Admin: 01/25/19 12:38 Dose: 500 mg Documented by: Divalproex Sodium (Depakote Er) 1,000 mg PO QHS [facility] Last Admin: 01/24/19 20:55 Dose: 1,000 mg Documented by: Famotidine (Pepcid) 20 mg PO BID [facility] Last Admin: 01/25/19 09:02 Dose: 20 mg Documented by: Furosemide (Lasix) 40 mg PO BREAKFAST [facility] Last Admin: 01/25/19 09:02 Dose: 40 mg Documented by: Furosemide (Lasix) 20 mg PO LUNCH [facility] Last Admin: 01/25/19 12:38 Dose: 20 mg Documented by: Gabapentin (Neurontin) 300 mg PO TID [facility] Last Admin: 01/25/19 12:39 Dose: 300 mg Documented by: Glucagon () 1 mg IM .X1 PRN PRN Reason: Hypoglycemia Guaifenesin (Mucinex) 600 mg PO BID [facility] Last Admin: 11/21/19 09:06 Dose: 600 mg Documented by: Sodium Chloride () 250 mls @ 15 mls/hr IV .[id number] PRN PRN Reason: Saline Flush Magnesium Hydroxide (Milk Of Magnesia) 30 ml PO DAILY PRN PRN Reason: Constipation Last Admin: 01/25/19 06:14 Dose: 30 ml Documented by: Methylprednisolone (Solu-Medrol) 40 mg IV Q8 [facility] Last Admin: 01/25/19 12:39 Dose: 40 mg Documented by: Nicotine (Nicoderm Cq (Pbkc)) 21 mg TRANSDERM. DAILY [facility] Last Admin: 01/25/19 09:03 Dose: 21 mg Documented by: Nitroglycerin (Nitrostat) 0.4 mg SUBLINGUAL Q5M PRN PRN Reason: CARDIAC/CHEST PAIN Nutritional Formula (Lactose Free) (Ensure Enlive) 120 ml PO 4X/DAY [facility] Last Admin: 01/25/19 12:45 Dose: 120 ml Documented by: Ondansetron HCl (Zofran) 4 mg IV Q8H PRN PRN PRN Reason: NAUSEA/VOMITING Sodium Chloride () 10 - 40 ml IV UD PRN PRN Reason: SALINE FLUSH Last Admin: 01/25/19 06:10 Dose: 10 ml Documented by: Throat Lozenges (Cepacol Sore Throat Lozenge) 1 lozenge MUCOUS MEM Q2H PRN PRN PRN Reason: COUGH Assessment/Plan Patient seen by ROXANA Allison under my supervision. Patient seen and examined. He still complains of slurred speech and weakness in his lower extremities. CVA ruled out. MRI. MRA of the head and neck was also negative. Still does complain of some shortness of breath and cough Labs and vitals reviewed. o/e: Vital Signs Height 5 ft 9 in Weight: 199 lb 1.239 oz Weight in Pounds 199.1 lbs Pulse Ox 91 Temperature 97.7 F Pulse Rate 90 Respiratory Rate 16 Blood Pressure 114/61 Blood Pressure Position Sitting General: Alert, Oriented x3, Cooperative HEENT: Atraumatic, PERRLA, EOMI, Normocephalic Oral: Dry Mucosa Neck: Supple, No JVD, Negative Carotid Bruits Lungs: Clear to auscultation, Normal air movement, No rhonchi, No wheeze Cardiovascular: Regular rate, Regular Rhythm, Normal S1, Normal S2, No murmurs Abdomen: Bowel Sounds Present, Soft, Non Tender Extremities: No clubbing, No cyanosis, No edema, Capillary Refill Less than 3 Seconds Skin: No rashes, No breakdown Musculoskeletal: No Tenderness to Palpation of Joints or Extremities Lymphatic: No Cervical, Supraclavicular, or Inguinal Adenopathy Neurological: - - has double vision in both eyes, has slurred speech, power in LE is 4-/5. normal sensation to light touch and pinprick; reflexes normal Psych/Mental Status: Normal Affect, Appropriate, Alert and oriented to time, place, person, mood and affect Plan is continue breathing treatments and IV Solu Medrol for now. Aspirin discontinued a stroke has been ruled out. Patient switched to Eliquis on account of reaction between Coumadin and Depakote. Symptoms may be likely due to underlying metabolic issues per neurology. PT OT on board. Will benefit from ophthalmology referral upon discharge due to double vision. Will check vitamin B1 and B12 as well as folic acid levels. Code Visit Inpatient E&M: 37256 Subs Hosp L2
--- NOTE | 2019-01-25 13:36 | CASEMGMT ---
SW met with patient, introduced self and role at [facility]. SW discussed Palliative Care with patient and he was open to a referral. SW also talked with patient about his d/c plan. He said he wants to go home. SW told him therapy will work with him today and we will see how he does. Referral made to Palliative Care. Jane SULLIVAN
--- NOTE | 2019-01-25 14:09 | CASEMGMT ---
Referral made to Palliative Care via phone and fax. Jane GOVEA MSW
--- NOTE | 2019-01-25 14:59 | CASEMGMT ---
SW spoke with patient as it is being recommended that he go somewhere for rehab as he is weak and he is requiring more oxygen than normal. He said, Nope. He said he understands they are worried about him, but he is going home. Jane GOVEA SLPS
[2019-01-25] MEDS: Acetaminophen 325 MG Tablet 650 MG PO (15:13)
[2019-01-25 17:04] LABS: Vitamin B12 621 pg/mL (211-911)
[2019-01-25] MEDS: Divalproex (ER) 500 MG Tablet 1000 MG PO (21:41)
[2019-01-25] MEDS: Atorvastatin Calcium 80 MG Tablet PO (21:42)
[2019-01-26] VITALS (36 sets, daily range): BP systolic 92–184; BP diastolic 56–137; PULSE 75–165; RESP 12–32; TEMP 36.2–40.3; O2SAT 88–99; BMI 31.9
[2019-01-26] MEDS: Divalproex (ER) 500 MG Tablet PO (06:00)
[2019-01-26] MEDS: Gabapentin 300 MG Capsule PO (06:00)
[2019-01-26] MEDS: 0.9% Saline Lock 10 ML Syringe IV ×3 (06:01→13:37)
[2019-01-26] MEDS: Ipratropium/Albuterol Sulfate 3 ML AMPUL.NEB INHALATION ×5 (07:07→22:29)
[2019-01-26 07:12] LABS: International Normalized Ratio 1.1; Prothrombin Time (Protime)PT. 13.7 SECONDS (11.7-14.9)
--- NOTE | 2019-01-26 09:24 | CASEMGMT ---
HENRIETTA received a call yesterday from Claudia at Palliative Care. [facility] has the incorrect address and phone number for patient. HENRIETTA spoke with patient this am and obtained the correct address and phone number for patient. [address] and phone [phone]. HENRIETTA called Palliative Care and updated Darshana. HENRIETTA also asked if someone could see the patient for Palliative while he is here in the hospital as he is not doing well and he is someone that could easily fall through the cracks. She said they are really busy today so she cannot guarantee anything. Jane GOVEA APPLICATION DEVELOPMENT CONSULTANT
[2019-01-26] MEDS: Albuterol 2.5 MG/3 ML VIAL.NEB. INHALATION (09:26)
--- NOTE | 2019-01-26 09:27 | RAD_ITS ---
STUDY: X-RAY CHEST REASON FOR EXAM: Male, 63 years old. Shortness of breath, aspiration TECHNIQUE: Single AP portable view of the chest. COMPARISON: 01/25/2019 and 01/23/2019 FINDINGS: There are persistent hazy infiltrates at the right lung base which may represent aspiration pneumonia due to the rapid development since 01/23/2019. The left lung is clear. Small right pleural effusion. Normal size heart. Normal mediastinum and angie. Normal visualized pulmonary arteries. Normal visualized aortic arch and descending thoracic aorta. Normal visualized thoracic spine. Normal visualized ribs, clavicles, and shoulders. There is no demonstrated abnormality of the visualized soft tissue structures of the upper abdomen. RAD/Chest 1 View (Portable) IMPRESSION: Persistent hazy infiltrates at the right lung base may represent aspiration pneumonia. Small right pleural effusion. Electronically Signed: Andrew Coleman, at 10:01 EST Tel , Service support ,
--- NOTE | 2019-01-26 09:42 | PCM.PROGNOTE ---
<Holly Mabry - Last Filed: 01/26/19 10:13> Patient Problems: Active and Suspected Problems CVA (cerebral vascular accident) (Acute) Slurred speech (Acute) Subjective: Nursing reports patient began coughing intensely while eating breakfast this morning. His respiratory status has quickly declined since that time. Patient seen and examined. Appears in significant respiratory distress, coarse breath sounds. O2 saturation mid 80s on 8 L nasal cannula. Respiratory notified to place BiPAP. Stat chest x-ray ordered. Pulmonary medicine consulted. Patient transferred to ICU, anticipate need for intubation. - Physical Exam Vitals/I&O's: Vital Signs Temp Pulse Resp BP Pulse Ox 97.9 F 102 H 20 H 120/69 91 01/26/19 05:00 01/26/19 07:07 01/26/19 07:07 01/26/19 05:00 01/26/19 07:07 Oxygen Flow Rate (L/min) 6 Oxygen Delivery Method Nasal Cannula Weight: 199 lb 1.239 oz Body Mass Index (BMI) 31.9 Intake and Output for Last 24 Hours 01/24/19 01/25/19 01/26/19 23:59 23:59 23:59 Intake Total 2140 / 2240 680 / 680 Output Total 650 / 900 1100 / 1350 650 / 650 Balance 1490 / 1340 -420 / -670 -650 / -650 General: - - Appears to be in significant respiratory distress, alert, appears fatigued HEENT: Atraumatic, PERRLA, EOMI, Normocephalic Oral: Dry Mucosa Neck: Supple, No JVD, Negative Carotid Bruits Lungs: Diminished, Tachypneic, - - Coarse breath sounds Cardiovascular: Regular Rhythm, Normal S1, Normal S2, No murmurs, Tachycardic Abdomen: Bowel Sounds Present, Soft, Non Tender, Non-Distended Extremities: No clubbing, No cyanosis, Capillary Refill Less than 3 Seconds, Edema - Nonpitting bilateral lower extremities Skin: No rashes, No breakdown Musculoskeletal: No Tenderness to Palpation of Joints or Extremities Neurological: Cranial nerves II-XII grossly intact, Neuro grossly intact Psych/Mental Status: Normal Affect Microbiology Past 72 Hours 01/24/19 06:02 Sputum, Expectorated/Coughed Gram Stain - Final 01/24/19 06:02 Sputum, Expectorated/Coughed Respiratory Culture - Final 01/23/19 23:40 Mucosa - Nose Respiratory Panel (PCR) - Final 01/23/19 18:45 Mucosa - Nasopharyngeal Influenza Types A,B Direct FA (ARACELI) - Final Laboratory Results 01/25/19 07:15: Vitamin B12 621 01/26/19 06:45: PT 13.7, INR 1.1 01/26/19 06:45: Whole Bld Vitamin B1 Pending, RBC Folate Hemolysate Pending, RBC Folate Pending, Hematocrit Pending Current Medications Acetaminophen (Tylenol) 650 mg PO Q6H PRN PRN PRN Reason: Non-cardiac pain (-12/14) Last Admin: 01/25/19 15:13 Dose: 650 mg Documented by: Al Hydroxide/Mg Hydroxide (Mylanta Ii) 15 - 30 ml PO Q4H PRN PRN PRN Reason: INDIGESTION Albuterol Sulfate (Ventolin Aerosols) 2.5 mg INHALATION Q2H PRN PRN PRN Reason: dyspnea, wheezing Last Admin: 01/26/19 09:26 Dose: 2.5 mg Documented by: Albuterol/Ipratropium (Duoneb) 3 ml INHALATION Q4HWA.RT [facility] Last Admin: 01/26/19 07:07 Dose: 3 ml Documented by: Apixaban (Eliquis) 2.5 mg PO BID [facility] Atorvastatin Calcium (Lipitor) 80 mg PO QHS [facility] Last Admin: 01/25/19 21:42 Dose: 80 mg Documented by: Dextrose (D50w Syringe) 0 gm IV X1 PRN; Protocol PRN Reason: Hypoglycemia Divalproex Sodium (Depakote Er) 500 mg PO 0700,1300 [facility] Last Admin: 01/26/19 06:00 Dose: 500 mg Documented by: Divalproex Sodium (Depakote Er) 1,000 mg PO QHS [facility] Last Admin: 01/25/19 21:41 Dose: 1,000 mg Documented by: Famotidine (Pepcid) 20 mg PO BID [facility] Last Admin: 01/25/19 21:41 Dose: 20 mg Documented by: Furosemide (Lasix) 40 mg PO BREAKFAST [facility] Last Admin: 01/25/19 09:02 Dose: 40 mg Documented by: Furosemide (Lasix) 20 mg PO LUNCH [facility] Last Admin: 01/25/19 12:38 Dose: 20 mg Documented by: Gabapentin (Neurontin) 300 mg PO TID [facility] Last Admin: 01/26/19 06:00 Dose: 300 mg Documented by: Glucagon () 1 mg IM .X1 PRN PRN Reason: Hypoglycemia Guaifenesin (Mucinex) 600 mg PO BID [facility] Last Admin: 01/25/19 21:41 Dose: 600 mg Documented by: Sodium Chloride () 250 mls @ 15 mls/hr IV .[id number] PRN PRN Reason: Saline Flush Piperacillin Sod/Tazobactam (Sod 3.375 gm/ Sodium Chloride) 50 mls @ 12.5 mls/hr IV Q8 [facility] Magnesium Hydroxide (Milk Of Magnesia) 30 ml PO DAILY PRN PRN Reason: Constipation Last Admin: 01/25/19 06:14 Dose: 30 ml Documented by: Methylprednisolone (Solu-Medrol) 40 mg IV Q8 [facility] Last Admin: 01/26/19 06:00 Dose: 40 mg Documented by: Nicotine (Nicoderm Cq (Pbkc)) 21 mg TRANSDERM. DAILY [facility] Last Admin: 01/25/19 09:03 Dose: 21 mg Documented by: Nitroglycerin (Nitrostat) 0.4 mg SUBLINGUAL Q5M PRN PRN Reason: CARDIAC/CHEST PAIN Nutritional Formula (Lactose Free) (Ensure Enlive) 120 ml PO 4X/DAY [facility] Last Admin: 01/25/19 21:42 Dose: 120 ml Documented by: Ondansetron HCl (Zofran) 4 mg IV Q8H PRN PRN PRN Reason: NAUSEA/VOMITING Sodium Chloride () 10 - 40 ml IV UD PRN PRN Reason: SALINE FLUSH Last Admin: 01/26/19 06:01 Dose: 10 ml Documented by: Throat Lozenges (Cepacol Sore Throat Lozenge) 1 lozenge MUCOUS MEM Q2H PRN PRN PRN Reason: COUGH Medical Necessity - Tobacco Use Smoking Status: Former smoker Tobacco Use: Cigarettes Assessment/Plan All Active Problems CVA (cerebral vascular accident) (Acute) Slurred speech (Acute) COPD exacerbation (Acute) 1. Acute hypoxic respiratory failure secondary to suspected aspiration-attempted BiPAP however patient began vomiting. Chest x-ray shows persistent hazy infiltrate at the right lung base, possible aspiration pneumonia. IV Zosyn initiated. Patient transferred to ICU. Pulmonary medicine consult placed. 2. Acute on chronic COPD exacerbation with chronic hypoxic respiratory failure- Respiratory panel negative. Sputum culture showed normal respiratory angelika. Afebrile, no leukocytosis. Continue IV Solu-Medrol. Patient wears 4 L nasal cannula at baseline. 3. TIA/CVA ruled out-MRI of brain showed nothing acute. MRA of head and neck showed no significant stenosis or occlusion. Neurology consulted, suspect symptoms secondary to underlying metabolic issues as a result of #1. Discontinue aspirin. Patient continues to complain of slurred speech and double vision. Unclear etiology. Patient will need follow-up with ophthalmology at discharge. 4. Hypertension-stable, continue home Lasix regimen. 5. Hyperlipidemia-continue statin. 6. 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 Transition to Eliquis due to concern for cross reaction with Depakote and Coumadin. Patient appears to have been on Coumadin long-term for remote history of DVT/PE however history of this is not entirely clear. Will begin Eliquis 2.5 mg twice daily for preventative DVT recurrence. Recommend follow-up with primary care physician to see if long-term anticoagulation is necessary. 7. Seizure disorder-continue Depakote. 8. Tobacco dependence-encourage cessation, nicotine replacement patch. 9. Obesity-encouraged diet lifestyle modifications. DVT prophylaxis-transitioned to Eliquis This patient was seen by ROXANA Allison under the supervision of Dr. Arteaga. <Alia Arteaga - Last Filed: 01/26/19 15:11> - Physical Exam Vitals/I&O's: Vital Signs Temp Pulse Resp BP Pulse Ox 103 F H 117 H 16 135/67 H 97 01/26/19 12:00 01/26/19 13:25 01/26/19 13:25 01/26/19 12:00 01/26/19 13:25 Oxygen Flow Rate (L/min) 6 Oxygen Delivery Method Mechanical Ventilator Weight: 199 lb 1.239 oz Body Mass Index (BMI) 31.9 Intake and Output for Last 24 Hours 01/24/19 01/25/19 01/26/19 23:59 23:59 23:59 Intake Total 2140 / 2240 680 / 680 2049 / 2049 Output Total 650 / 900 1100 / 1350 650 / 650 Balance 1490 / 1340 -420 / -670 1400 / 1400 Microbiology Past 72 Hours 11/19/19 18:10 Blood Culture (Wb) - Right Forearm Blood Culture - Preliminary No growth in 48 hours. 01/23/19 18:00 Blood Culture (Wb) - Anticubital Left Blood Culture - Preliminary No growth in 48 hours. 01/24/19 06:02 Sputum, Expectorated/Coughed Gram Stain - Final 01/24/19 06:02 Sputum, Expectorated/Coughed Respiratory Culture - Final 01/23/19 23:40 Mucosa - Nose Respiratory Panel (PCR) - Final 01/23/19 18:45 Mucosa - Nasopharyngeal Influenza Types A,B Direct FA (ARACELI) - Final Laboratory Results 01/25/19 07:15: Vitamin B12 621 01/26/19 06:45: PT 13.7, INR 1.1 01/26/19 06:45: Whole Bld Vitamin B1 Pending, RBC Folate Hemolysate Pending, RBC Folate Pending, Hematocrit Pending 01/26/19 10:24: ESR 44 H 01/26/19 10:24: Miscellaneous Test Pending 01/26/19 10:24: Acetylchol Rcpt Block Ab Pending, Acetylchol Rcpt Modu Ab Pending 01/26/19 10:25: Total Creatine Kinase 45, Triglycerides 130 01/26/19 11:17: Specimen Type ART, Sample Site R Brachial, pH 7.42, Bicarbonate Actual 28.5 H, POC Total CO2 30, Base Excess 4 H, O2 Saturation 84 L, O2 % 50, ABG pCO2 43.8, ABG pO2 48 L, Dariusz Test NA, Respiration Rate 14, O2 Delivery Device Vent, Vent Mode A-C, Tidal Volume 450, POC PEEP 5, Blood Gas Notified Whom ICU , Blood Gas Notified Time 1116 01/26/19 12:50: Lactic Acid 3.2 H 01/26/19 12:55: WBC 12.4 H, RBC 4.00 L, Hgb 13.6, Hct 42.1, MCV 105.3 H, MCH 34.0 H, MCHC 32.3, RDW Std Deviation 54.4 H, RDW Coeff of Mohsen 13.9, Plt Count 107 L, MPV 10.7, Immature Gran % (Auto) 0.500, Neut % (Auto) 80.5 H, Lymph % (Auto) 5.4 L, [place] % (Auto) 13.4 H, Eos % (Auto) 0.0, Baso % (Auto) 0.2, Absolute Neuts (auto) 9.9 H, Absolute Lymphs (auto) 0.67 L, Nucleated RBC % 0, Differential Comment COMMENT, Diff Path Review July foll 01/26/19 12:55: Sodium 143, Potassium 3.9, Chloride 106, Carbon Dioxide 30.0, Anion Gap 7, BUN 16, Creatinine 0.65 L, Estim Creat Clear Calc 119.34, Est GFR (MDRD) Af Amer 161, Est GFR (MDRD) Non-Af 133, BUN/Creatinine Ratio 24.6 H, Glucose 126 H, Calcium 8.8, Total Bilirubin 0.60, AST 44 H, ALT 41, Alkaline Phosphatase 77, Total Protein 6.3 L, Albumin 2.4 L, Globulin 3.9, Albumin/Globulin Ratio 0.6 L Current Medications Acetaminophen (Tylenol) 650 mg PO Q6H PRN PRN PRN Reason: Non-cardiac pain (-12/14) Last Admin: 01/25/19 15:13 Dose: 650 mg Documented by: Acetaminophen (Tylenol Liquid) 650 mg GT Q6H PRN PRN PRN Reason: TEMP>101 Al Hydroxide/Mg Hydroxide (Mylanta Ii) 15 - 30 ml PO Q4H PRN PRN PRN Reason: INDIGESTION Albuterol Sulfate (Ventolin Aerosols) 2.5 mg INHALATION Q2H PRN PRN PRN Reason: dyspnea, wheezing Last Admin: 01/26/19 09:26 Dose: 2.5 mg Documented by: Albuterol/Ipratropium (Duoneb) 3 ml INHALATION Q4HWA.RT [facility] Last Admin: 01/26/19 14:17 Dose: 3 ml Documented by: Apixaban (Eliquis) 2.5 mg GT BID [facility] Atorvastatin Calcium (Lipitor) 80 mg GT QHS [facility] Chlorhexidine Gluconate () 15 ml PO BID [facility] Chlorhexidine Gluconate () 1 each TOPICAL DAILY [facility] Dextrose (D50w Syringe) 0 gm IV X1 PRN; Protocol PRN Reason: Hypoglycemia Divalproex Sodium (Depakote Er) 500 mg PO 0700,1300 [facility] Last Admin: 01/26/19 13:30 Dose: Not Given Documented by: Divalproex Sodium (Depakote Er) 1,000 mg PO QHS [facility] Last Admin: 01/25/19 21:41 Dose: 1,000 mg Documented by: Famotidine (Pepcid) 20 mg GT BID [facility] Gabapentin (Neurontin) 300 mg GT TID [facility] Last Admin: 01/26/19 14:41 Dose: 300 mg Documented by: Glucagon () 1 mg IM .X1 PRN PRN Reason: Hypoglycemia Guaifenesin (Robitussin) 10 ml GT Q6H PRN Sodium Chloride () 250 mls @ 15 mls/hr IV .[id number] PRN PRN Reason: Saline Flush Piperacillin Sod/Tazobactam (Sod 3.375 gm/ Sodium Chloride) 50 mls @ 12.5 mls/hr IV Q8 [facility] Last Admin: 01/26/19 11:39 Dose: 12.5 mls/hr Documented by: Vancomycin IV Pharmacy to Dose (1 ea/ Sodium Chloride) 500 mls @ 250 mls/hr IV X1 PRN; Protocol PRN Reason: Rx to Dose Vancomycin HCl 1,750 mg/ (Sodium Chloride) 535 mls @ 250 mls/hr IV Q12H [facility] Fentanyl () 100 mls @ 5 mls/hr IV UD [facility]; Protocol Last Admin: 01/26/19 10:05 Dose: 50 mcg/hr, 5 mls/hr Documented by: Propofol (Diprivan) 1,000 mg in 100 mls @ 5.418 mls/hr CONT INF .Q12H [facility]; Protocol Last Admin: 01/26/19 10:05 Dose: 10 mcg/kg/min, 5.4 mls/hr Documented by: Magnesium Hydroxide (Milk Of Magnesia) 30 ml GT DAILY PRN PRN Reason: Constipation Methylprednisolone (Solu-Medrol) 40 mg IV Q8 [facility] Last Admin: 01/26/19 14:41 Dose: 40 mg Documented by: Nicotine (Nicoderm Cq (Pbkc)) 21 mg TRANSDERM. DAILY [facility] Last Admin: 01/26/19 11:41 Dose: 21 mg Documented by: Nitroglycerin (Nitrostat) 0.4 mg SUBLINGUAL Q5M PRN PRN Reason: CARDIAC/CHEST PAIN Ondansetron HCl (Zofran) 4 mg IV Q8H PRN PRN PRN Reason: NAUSEA/VOMITING Sodium Chloride () 10 - 40 ml IV UD PRN PRN Reason: SALINE FLUSH Last Admin: 01/26/19 13:37 Dose: 10 ml Documented by: Throat Lozenges (Cepacol Sore Throat Lozenge) 1 lozenge MUCOUS MEM Q2H PRN PRN PRN Reason: COUGH Assessment/Plan Patient seen by Holly Mabry NP-C under my supervision Patient seen and examined this morning. At time of early review, patient had no complaints. He still said he had weakness in his lower extremities but this was getting better he thought his speech was getting better too. However subsequently after eating breakfast, patient was noted to be getting more short of breath and requiring increasing amounts of oxygen up to 8 L. Stat chest x-ray obtained showed persistent hazy infiltrate of the right lung base likely due to aspiration pneumonia. Urgent pulmonology consult was placed and patient was transferred to ICU where he was intubated. He was started on IV Zosyn. o/e: Vital Signs Height 5 ft 9 in Weight: 199 lb 1.239 oz Weight in Pounds 199.1 lbs Pulse Ox 97 Temperature 103 F Pulse Rate 117 Respiratory Rate 16 Blood Pressure 135/67 Blood Pressure Position Semi-Fowlers General: - - alert, fatigued, short of breath, HEENT: Atraumatic, PERRLA, EOMI, Normocephalic Oral: Dry Mucosa Neck: Supple, No JVD, Negative Carotid Bruits Lungs: Diminished, Tachypneic, - - Coarse breath sounds bibasally, on 8L of oxygen by nasal canula Cardiovascular: Regular Rhythm, Normal S1, Normal S2, No murmurs, Tachycardic Abdomen: Bowel Sounds Present, Soft, Non Tender, Non-Distended Extremities: No clubbing, No cyanosis, Capillary Refill Less than 3 Seconds, Edema - Nonpitting bilateral lower extremities Skin: No rashes, No breakdown Musculoskeletal: No Tenderness to Palpation of Joints or Extremities Neurological: Cranial nerves II-XII grossly intact,power in LE is 4-/5, slurred speech Psych/Mental Status: Normal Affect Plan is to transfer emergently to ICU. Start IV zosyn. Sputum culture. He could not tolerate BiPAP and so he was emergently intubated. Continue hydration with IV fluids. Continue IV steroids. Neurology is on board. Rest of management as per Holly Mabry NP-C's notes which I reviewed and endorsed. Code Visit Inpatient E&M: 74816 Subs Hosp L3
--- NOTE | 2019-01-26 09:50 | NURSING ---
Dr. Medellin in to see patient. clearly patient is SOB and struggling to catch breath. Dr. Medellin spoke to patient about possible need for intubation and patient was agreeable. Pt then began to vomit. Dr. Medellin request immediate transfer to ICU
[2019-01-26] MEDS: Etomidate 20 MG/10 ML Vial IV (10:02)
[2019-01-26] MEDS: Midazolam 2 MG/2 ML Syringe 4 MG IV (10:02)
[2019-01-26] MEDS: fentaNYL drip 100 ML 5 MCG IV (10:05)
[2019-01-26] MEDS: Propofol 10MG/Ml 1,000 MG/100 ML Bottle 5.4 MG CONT INF (10:05)
--- NOTE | 2019-01-26 10:05 | RAD_ITS ---
STUDY: X-RAY CHEST REASON FOR EXAM: Male, 63 years old. ET tube placement TECHNIQUE: Single AP portable view of the chest. COMPARISON: 01/26/2019 FINDINGS: There has been interval intubation, ET tube is 7.1 cm above the ciro. Enteric tube courses below the diaphragms, its tip is excluded from view. Multiple external lines overlie the thorax. There are persistent hazy infiltrates at the right lung base which may represent aspiration pneumonia due to the rapid development since 01/23/2019. The left lung is clear. Small right pleural effusion. Normal size heart. Normal mediastinum and angie. Normal visualized pulmonary arteries. Normal visualized aortic arch and descending thoracic aorta. Normal visualized thoracic spine. There are fractures of the right lateral ribs. There is no demonstrated abnormality of the visualized soft tissue structures of the upper abdomen. RAD/Chest 1 View IMPRESSION: ET tube as described above. Persistent hazy infiltrates at the right lung base may represent aspiration pneumonia. Electronically Signed: Andrew Coleman, at 11:31 EST Tel , Service support ,
--- NOTE | 2019-01-26 10:05 | RAD_ITS ---
STUDY: X-RAY - ABDOMEN/PELVIS REASON FOR EXAM: Male, 63 years old. OG tube placement TECHNIQUE: Single AP view of the abdomen / pelvis. COMPARISON: None. FINDINGS: Normal visualized lung bases. Enteric tube overlies the stomach. There is an unremarkable bowel gas pattern. There is no demonstrated free abdominal air. The visualized liver, spleen and kidneys are grossly normal in size and morphology. Normal soft tissue structures. Normal visualized osseous structures. RAD/Abdomen Single View IMPRESSION: Enteric tube overlies the stomach. Electronically Signed: Andrew Coleman, at 11:35 EST Tel , Service support ,
--- NOTE | 2019-01-26 10:15 | CON.PCM_ITS ---
Reason for Consult Date of Consultation: 01/26/19 Reason for Consultation: Acute on chronic hypoxemic respiratory failure History of Present Illness: The patient is a 63-year-old male, with a history as outlined below, who presented to the emergency department on January 23 with complaints of s hortness of breath and slurred speech. The patient has a history of COPD (follows with Dr. 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 On presentation to the emergency department, the patient was noted to be febrile, tachycardic and tachypneic. Initial laboratory evaluation revealed no evidence of a leukocytosis. INR was noted to be 2.3. Troponin was negative. Lactate was within normal limits. Head CT revealed chronic involutional changes of the brain. Plain film checks x-ray on presentation revealed no acute cardiopulmonary process. The patient received aerosol treatments, IV steroids and was admitted to the progressive care unit for further management. Although the patient was maintained on bronchodilators and steroids, antibiotics were not initiated, as there was little overall concern for an underlying pulmonary infectious process. Over concerns for the patient slurred speech, neurology consultation was placed. Brain MRI, however, was largely unremarkable. A surface echocardiogram was also obtained and revealed normal LV size with an ejection fraction of 65% and stage I diastolic dysfunction. The RV was noted to be moderately dilated. On the morning of January 26, the patient apparently experienced a venkat aspir ation event while eating breakfast. He subsequently went on to develop a significant amount of respiratory distress. Attempts to utilize noninvasive positive pressure ventilatory support was limited by the fact that the patient developed nausea and vomiting. I did speak personally with the patient who indicated that he would in fact want to be intubated. The decision at that time was made to transfer the patient to the medical intensive care unit. On arrival to the ICU, the patient was noted to be in venkat respiratory distress. The patient was unable to speak in sentences and was tachypneic with accessory muscle use. Bedside Intubation Note Indication: Acute on chronic respiratory failure Consent was obtained from: Patient The patient was placed in the appropriate sniffing position. Preoxygenation via bag valve mask was provided for a minimum of 3 minutes. The patient had continuous cardiac as well as pulse oximetry monitoring during the procedure. P rocedure sedation was provided by the administration of 4 mg of Versed and 20 mg of etomidate. Direct laryngoscopy was then performed using a number 4 MAC blade, which revealed a grade 1 view. A 7.5 mm endotracheal tube was visualized advancing between the cords to the level of 22 cm at the lip. The stylette was then removed and discarded. Tube placement was confirmed by fogging in the tube along with equal and bilateral breath sounds. Colorimetric change was visualized on the CO2 meter. The cuff was then inflated and the tube secured using a commercially available device. A good pulse oximetry waveform was seen on the monitor throughout the procedure. A portable chest x-ray has been ordered to confirm appropriate placement. The patient tolerated the procedure well. Past Medical History Past Medical History (Chronic Problems): Chronic Problems Chronic respiratory failure with hypoxia (Chronic) Tobacco use (Chronic) HTN (hypertension) (Chronic) HLD (hyperlipidemia) (Chronic) Ulcer of right lower extremity with fat layer exposed (Chronic) Lower extremity edema (Chronic) History of DVT (deep vein thrombosis) (Chronic) History of pulmonary embolism (Chronic) Seizure disorder (Chronic) COPD (chronic obstructive pulmonary disease) (Chronic) Allergies No Known Allergies Allergy (Verified 01/23/19 17:51) Home Medications: Ambulatory Orders Medication Instructions Recorded Gabapentin [Neurontin] 300 mg PO TID 05/28/16 Potassium Chloride [K-Dur] 10 meq PO TID 05/28/16 Nitroglycerin (INPATIENT USE) 0.4 mg SUBLINGUAL Q5M PRN 12/12/17 [Nitrostat] Furosemide [Lasix] 40 mg PO BREAKFAST 04/29/18 Divalproex Sodium [Depakote ER] 1,000 mg PO QHS 05/02/18 Divalproex Sodium [Depakote ER] 500 mg PO 0700,1300 05/02/18 Pravastatin Sodium 40 mg PO QHS 05/02/18 Acetaminophen [Tylenol Tablet] 650 mg PO Q6H PRN PRN tablet 05/10/18 Guaifenesin [Mucinex] 600 mg PO BID 07/15/18 Furosemide [Lasix] 20 mg PO LUNCH 01/04/19 Mometasone/Formoterol [Dulera 200 1 puff IH BID 01/04/19 Mcg/5 Mcg Inhaler] Warfarin [Coumadin] 5 mg PO SUTUWETHSA 01/04/19 Albuterol Inhaler [Ventolin Hfa] 2 puff INHALATION Q4H PRN PRN #0 01/09/19 Ipratropium/Albuterol Sulfate 3 ml INHALATION Q4H PRN PRN #30 01/09/19 [Duoneb] ampul.neb Cholecalciferol (Vitamin D3) 50,000 unit PO MO 01/23/19 [Vitamin D] Warfarin Sodium 2.5 mg PO MOFR 01/23/19 Surgical History: appendectomy, - - Liver biopsy. Psychiatric History: No pertinent psych hx Lives: With Family - Patient lives with his fianc?e as well as her family. Smoking Status: Former smoker Tobacco Use: Cigarettes Alcohol: None Drugs: None - *Family History Maternal History Items: COPD, Heart Disease Paternal History Items: Unknown - Does not know his paternal medical history. Review of Systems Unable to obtain accurate/complete ROS d/t: Due to current intubation and mechanical ventilation status Patient Problems: Active and Suspected Problems CVA (cerebral vascular accident) (Acute) Slurred speech (Acute) Objective: The patient's most recent lab work, culture data and imaging studies have all been personally reviewed. - Physical Exam Vitals/I&O's: Vital Signs Temp Pulse Resp BP Pulse Ox 97.9 F 102 H 20 H 120/69 91 01/26/19 05:00 01/26/19 07:07 01/26/19 07:07 01/26/19 05:00 01/26/19 07:07 Oxygen Flow Rate (L/min) 6 Oxygen Delivery Method Nasal Cannula Weight: 199 lb 1.239 oz Body Mass Index (BMI) 31.9 Intake and Output for Last 24 Hours 01/24/19 01/25/19 01/26/19 23:59 23:59 23:59 Intake Total 2140 / 2240 680 / 680 Output Total 650 / 900 1100 / 1350 650 / 650 Balance 1490 / 1340 -420 / -670 -650 / -650 General: - - Intubated, sedated and mechanically ventilated. HEENT: Atraumatic, PERRLA, Normocephalic Oral: Dry Mucosa, - - Endotracheal and OG tubes in place Neck: Supple, No Nodes, Trachea Midline Lungs: Diminished, Rhonchi Cardiovascular: Normal S1, Normal S2, No murmurs, Tachycardic Abdomen: Bowel Sounds Present, Soft, Non Tender Extremities: No clubbing, No cyanosis, Edema Skin: No breakdown Musculoskeletal: No Muscle Wasting Lymphatic: No Cervical, Supraclavicular, or Inguinal Adenopathy Neurological: - - No focal neurological deficits. Currently sedated. Labs (Last 48 Hours) 01/25/19 01/25/19 01/25/19 07:15 07:15 07:15 WBC 9.9 RBC 3.68 L Hgb 12.5 L Hct 37.2 L MCV 101.1 H MCH 34.0 H MCHC 33.6 RDW Std Deviation 49.1 H RDW Coeff of Mohsen 13.1 Plt Count 101 L MPV 10.9 Immature Gran % (Auto) 0.600 Neut % (Auto) 83.3 H Lymph % (Auto) 8.9 L White % (Auto) 7.1 Eos % (Auto) 0.0 Baso % (Auto) 0.1 Absolute Neuts (auto) 8.2 H Absolute Lymphs (auto) 0.88 Nucleated RBC % 0 ESR PT INR Specimen Type Sample Site pH Bicarbonate Actual POC Total CO2 Base Excess O2 Saturation O2 % ABG pCO2 ABG pO2 Dariusz Test Respiration Rate O2 Delivery Device Vent Mode Tidal Volume POC PEEP Blood Gas Notified Whom Blood Gas Notified Time Sodium 136 Potassium 4.2 Chloride 100 Carbon Dioxide 29.0 Anion Gap 7 BUN 17 Creatinine 0.51 L Estim Creat Clear Calc 152.11 Est GFR (MDRD) Af Amer 211 Est GFR (MDRD) Non-Af 174 BUN/Creatinine Ratio 33.1 H Glucose 173 H Lactic Acid Calcium 9.1 Total Bilirubin AST ALT Alkaline Phosphatase Total Creatine Kinase Total Protein Albumin Triglycerides Whole Bld Vitamin B1 Vitamin B12 621 RBC Folate Hemolysate RBC Folate Hematocrit Acetylchol Rcpt Block Ab Acetylchol Rcpt Modu Ab Miscellaneous Test 01/26/19 01/26/19 01/26/19 06:45 06:45 10:24 WBC RBC Hgb Hct MCV MCH MCHC RDW Std Deviation RDW Coeff of Mohsen Plt Count MPV Immature Gran % (Auto) Neut % (Auto) Lymph % (Auto) White % (Auto) Eos % (Auto) Baso % (Auto) Absolute Neuts (auto) Absolute Lymphs (auto) Nucleated RBC % ESR 44 H PT 13.7 INR 1.1 Specimen Type Sample Site pH Bicarbonate Actual POC Total CO2 Base Excess O2 Saturation O2 % ABG pCO2 ABG pO2 Dariusz Test Respiration Rate O2 Delivery Device Vent Mode Tidal Volume POC PEEP Blood Gas Notified Whom Blood Gas Notified Time Sodium Potassium Chloride Carbon Dioxide Anion Gap BUN Creatinine Estim Creat Clear Calc Est GFR (MDRD) Af Amer Est GFR (MDRD) Non-Af BUN/Creatinine Ratio Glucose Lactic Acid Calcium Total Bilirubin AST ALT Alkaline Phosphatase Total Creatine Kinase Total Protein Albumin Triglycerides Whole Bld Vitamin B1 Pending Vitamin B12 RBC Folate Hemolysate Pending RBC Folate Pending Hematocrit Pending Acetylchol Rcpt Block Ab Acetylchol Rcpt Modu Ab Miscellaneous Test 01/26/19 01/26/19 01/26/19 10:24 10:24 10:25 WBC RBC Hgb Hct MCV MCH MCHC RDW Std Deviation RDW Coeff of Mohsen Plt Count MPV Immature Gran % (Auto) Neut % (Auto) Lymph % (Auto) White % (Auto) Eos % (Auto) Baso % (Auto) Absolute Neuts (auto) Absolute Lymphs (auto) Nucleated RBC % ESR PT INR Specimen Type Sample Site pH Bicarbonate Actual POC Total CO2 Base Excess O2 Saturation O2 % ABG pCO2 ABG pO2 Dariusz Test Respiration Rate O2 Delivery Device Vent Mode Tidal Volume POC PEEP Blood Gas Notified Whom Blood Gas Notified Time Sodium Potassium Chloride Carbon Dioxide Anion Gap BUN Creatinine Estim Creat Clear Calc Est GFR (MDRD) Af Amer Est GFR (MDRD) Non-Af BUN/Creatinine Ratio Glucose Lactic Acid Calcium Total Bilirubin AST ALT Alkaline Phosphatase Total Creatine Kinase 45 Total Protein Albumin Triglycerides 130 Whole Bld Vitamin B1 Vitamin B12 RBC Folate Hemolysate RBC Folate Hematocrit Acetylchol Rcpt Block Ab Pending Acetylchol Rcpt Modu Ab Pending Miscellaneous Test Pending 01/26/19 01/26/19 01/26/19 11:17 12:50 12:55 WBC Pending RBC Pending Hgb Pending Hct Pending MCV Pending MCH Pending MCHC Pending RDW Std Deviation Pending RDW Coeff of Mohsen Pending Plt Count Pending MPV Immature Gran % (Auto) Neut % (Auto) Pending Lymph % (Auto) White % (Auto) Eos % (Auto) Baso % (Auto) Absolute Neuts (auto) Pending Absolute Lymphs (auto) Nucleated RBC % ESR PT INR Specimen Type ART Sample Site R Brachial pH 7.42 Bicarbonate Actual 28.5 H POC Total CO2 30 Base Excess 4 H O2 Saturation 84 L O2 % 50 ABG pCO2 43.8 ABG pO2 48 L Dariusz Test NA Respiration Rate 14 O2 Delivery Device Vent Vent Mode A-C Tidal Volume 450 POC PEEP 5 Blood Gas Notified Whom ICU MD Blood Gas Notified Time 1116 Sodium Potassium Chloride Carbon Dioxide Anion Gap BUN Creatinine Estim Creat Clear Calc Est GFR (MDRD) Af Amer Est GFR (MDRD) Non-Af BUN/Creatinine Ratio Glucose Lactic Acid Pending Calcium Total Bilirubin AST ALT Alkaline Phosphatase Total Creatine Kinase Total Protein Albumin Triglycerides Whole Bld Vitamin B1 Vitamin B12 RBC Folate Hemolysate RBC Folate Hematocrit Acetylchol Rcpt Block Ab Acetylchol Rcpt Modu Ab Miscellaneous Test 01/26/19 12:55 WBC RBC Hgb Hct MCV MCH MCHC RDW Std Deviation RDW Coeff of Mohsen Plt Count MPV Immature Gran % (Auto) Neut % (Auto) Lymph % (Auto) White % (Auto) Eos % (Auto) Baso % (Auto) Absolute Neuts (auto) Absolute Lymphs (auto) Nucleated RBC % ESR PT INR Specimen Type Sample Site pH Bicarbonate Actual POC Total CO2 Base Excess O2 Saturation O2 % ABG pCO2 ABG pO2 Dariusz Test Respiration Rate O2 Delivery Device Vent Mode Tidal Volume POC PEEP Blood Gas Notified Whom Blood Gas Notified Time Sodium Pending Potassium Pending Chloride Pending Carbon Dioxide Pending Anion Gap Pending BUN Pending Creatinine Pending Estim Creat Clear Calc Est GFR (MDRD) Af Amer Pending Est GFR (MDRD) Non-Af Pending BUN/Creatinine Ratio Pending Glucose Pending Lactic Acid Calcium Pending Total Bilirubin Pending AST Pending ALT Pending Alkaline Phosphatase Pending Total Creatine Kinase Total Protein Pending Albumin Pending Triglycerides Whole Bld Vitamin B1 Vitamin B12 RBC Folate Hemolysate RBC Folate Hematocrit Acetylchol Rcpt Block Ab Acetylchol Rcpt Modu Ab Miscellaneous Test Microbiology 01/24/19 06:02 Sputum, Expectorated/Coughed Gram Stain - Final 01/24/19 06:02 Sputum, Expectorated/Coughed Respiratory Culture - Final 01/23/19 23:40 Mucosa - Nose Respiratory Panel (PCR) - Final Clinical Impression(s) from Imaging Studies Brain CT 01/23/19 18:35 IMPRESSION: Chronic involutional changes of the brain. Electronically Signed: Ford Craig MD at 19:28 EST , Service support , Chest X-Ray 01/23/19 18:37 IMPRESSION: Calcified plaques of the thoracic aorta. Multiple old bilateral rib fractures. No acute cardiopulmonary disease process is seen. Electronically Signed: Ford Craig MD at 18:56 EST , Service support , Head MRA 01/24/19 12:20 IMPRESSION: Normal MRA of the head. No demonstrated aneurysm, dissection, stenosis, or occlusion. Electronically Signed: Renetta Diaz MD at 16:09 EST Tel , Service support , Neck MRA 01/24/19 12:20 IMPRESSION: Normal bilateral cervical carotid and vertebral arteries. Electronically Signed: Renetta Diaz MD at 16:15 EST Tel , Service support , Brain MRI 01/24/19 12:30 IMPRESSION: No acute infarct or intracranial hemorrhage. Mild involutional changes of the brain, as described above. Electronically Signed: Andrew Coleman, at 15:29 EST Tel , Service support , Chest X-Ray 01/25/19 09:45 IMPRESSION: Hazy infiltrates at the right lung base may represent atelectasis or pneumonia in the proper clinical setting. Electronically Signed: Andrew Coleman, at 10:46 EST Tel , Service support , Chest X-Ray 01/26/19 09:27 IMPRESSION: Persistent hazy infiltrates at the right lung base may represent aspiration pneumonia. Small right pleural effusion. Electronically Signed: Andrew Coleman, at 10:01 EST Tel , Service support , Chest X-Ray 01/26/19 10:05 IMPRESSION: ET tube as described above. Persistent hazy infiltrates at the right lung base may represent aspiration pneumonia. Electronically Signed: Andrew Coleman, at 11:31 EST Tel , Service support , KUB X-Ray 01/26/19 10:05 IMPRESSION: Enteric tube overlies the stomach. Electronically Signed: Andrew Coleman, at 11:35 EST Tel , Service support , KUB X-Ray 01/26/19 10:46 IMPRESSION: Enteric tube overlies the stomach. Electronically Signed: Andrew Coleman, at 11:41 EST Tel , Service support , Current Medications Acetaminophen (Tylenol) 650 mg PO Q6H PRN PRN PRN Reason: Non-cardiac pain (4-12/14) Last Admin: 01/25/19 15:13 Dose: 650 mg Documented by: Al Hydroxide/Mg Hydroxide (Mylanta Ii) 15 - 30 ml PO Q4H PRN PRN PRN Reason: INDIGESTION Albuterol Sulfate (Ventolin Aerosols) 2.5 mg INHALATION Q2H PRN PRN PRN Reason: dyspnea, wheezing Last Admin: 01/26/19 09:26 Dose: 2.5 mg Documented by: Albuterol/Ipratropium (Duoneb) 3 ml INHALATION Q4HWA.RT [facility] Last Admin: 01/26/19 07:07 Dose: 3 ml Documented by: Apixaban (Eliquis) 2.5 mg PO BID EVLER Atorvastatin Calcium (Lipitor) 80 mg PO QHS [facility]VER Last Admin: 01/25/19 21:42 Dose: 80 mg Documented by: Dextrose (D50w Syringe) 0 gm IV X1 PRN; Protocol PRN Reason: Hypoglycemia Divalproex Sodium (Depakote Er) 500 mg PO 0700,1300 [facility] Last Admin: 01/26/19 06:00 Dose: 500 mg Documented by: Divalproex Sodium (Depakote Er) 1,000 mg PO QHS [facility] Last Admin: 01/25/19 21:41 Dose: 1,000 mg Documented by: Famotidine (Pepcid) 20 mg PO BID [facility] Last Admin: 01/25/19 21:41 Dose: 20 mg Documented by: Furosemide (Lasix) 40 mg PO BREAKFAST [facility] Last Admin: 01/25/19 09:02 Dose: 40 mg Documented by: Furosemide (Lasix) 20 mg PO LUNCH [facility] Last Admin: 01/25/19 12:38 Dose: 20 mg Documented by: Gabapentin (Neurontin) 300 mg PO TID [facility] Last Admin: 01/26/19 06:00 Dose: 300 mg Documented by: Glucagon () 1 mg IM .X1 PRN PRN Reason: Hypoglycemia Guaifenesin (Mucinex) 600 mg PO BID [facility] Last Admin: 01/25/19 21:41 Dose: 600 mg Documented by: Sodium Chloride () 250 mls @ 15 mls/hr IV .[id number] PRN PRN Reason: Saline Flush Piperacillin Sod/Tazobactam (Sod 3.375 gm/ Sodium Chloride) 50 mls @ 12.5 mls/hr IV Q8 [facility] Vancomycin IV Pharmacy to Dose (1 ea/ Sodium Chloride) 500 mls @ 250 mls/hr IV X1 PRN; Protocol PRN Reason: Rx to Dose Magnesium Hydroxide (Milk Of Magnesia) 30 ml PO DAILY PRN PRN Reason: Constipation Last Admin: 01/25/19 06:14 Dose: 30 ml Documented by: Methylprednisolone (Solu-Medrol) 40 mg IV Q8 [facility] Last Admin: 01/26/19 06:00 Dose: 40 mg Documented by: Nicotine (Nicoderm Cq (Pbkc)) 21 mg TRANSDERM. DAILY [facility] Last Admin: 01/25/19 09:03 Dose: 21 mg Documented by: Nitroglycerin (Nitrostat) 0.4 mg SUBLINGUAL Q5M PRN PRN Reason: CARDIAC/CHEST PAIN Nutritional Formula (Lactose Free) (Ensure Enlive) 120 ml PO 4X/DAY [facility] Last Admin: 01/25/19 21:42 Dose: 120 ml Documented by: Ondansetron HCl (Zofran) 4 mg IV Q8H PRN PRN PRN Reason: NAUSEA/VOMITING Sodium Chloride () 10 - 40 ml IV UD PRN PRN Reason: SALINE FLUSH Last Admin: 01/26/19 06:01 Dose: 10 ml Documented by: Throat Lozenges (Cepacol Sore Throat Lozenge) 1 lozenge MUCOUS MEM Q2H PRN PRN PRN Reason: COUGH Assessment/Plan Active and Suspected Problems CVA (cerebral vascular accident) (Acute) Slurred speech (Acute) RECOMMENDATIONS: 1. Start broad-spectrum antimicrobials including Zosyn and vancomycin. 2. Orders for IV fluids have been placed. 3. Check lactate and obtain arterial blood gas in 1 hour. 4. Obtain sputum, urine and blood cultures. 5. Wean FiO2 and PEEP to maintain oxygen saturations at or above 90%. 6. Start tube feeds once OG tube placement has been confirmed. 7. Continue appropriate ICU prophylaxis IMPRESSIONS: 1. Acute on chronic hypoxemic respiratory failure/severe sepsis secondary to presumed aspiration pneumonia The patient was emergently transferred to the ICU on the morning of January 26, where she did require intubation due to impending respiratory failure following an aspiration event. The patient has been started on appropriate antimicrobials. He will receive supplemental IV fluid hydration as well. Culture data is currently pending. Continue bronchodilators and steroids as ordered. Will obtain arterial blood gas in approximately 1 hour. Wean FiO2 and PEEP to maintain oxygen saturations at or above 90%. 2. COPD with exacerbation Inciting etiology appears to be aspiration event. Continue current supportive measures as noted above along with bronchodilators and steroids. Wean oxygen as tolerated. 3. Slurred speech Neurology is currently following. Work-up has been unrevealing to date. 4. History of venous thrombi embolic disease/hypertension/hyperlipidemia/seizure disorder/continuous tobacco dependency Complicates care, management, recovery and prognosis. Hold home antihypertensives and diuretics for now. Continue antiepileptics. TIME: 40 minutes of critical care time, inclusive of procedures, was spent addressing the patient's acute on chronic hypoxemic respiratory failure, severe sepsis secondary to presumed aspiration pneumonia, COPD with exacerbation, review of all data and collaboration with the care team. ([id number]) Code Visit 9xxxx: [id number] Critical care first hour
--- NOTE | 2019-01-26 10:24 | CASEMGMT ---
SW spoke with Palliative Care this am and they can see patient today at 3p. Patient however, was transferred to ICU and intubated so SW canceled the visit for today. Jane GOVEA MSW
--- NOTE | 2019-01-26 10:41 | NURSING ---
Notified patients listed person to notify of his status change ans transfer to ICU. Spoke with Chely Wills listed as his significant other.
[2019-01-26 10:42] LABS: Erythrocyte Sedimentation Rate 44 mm/hr (0-20)
--- NOTE | 2019-01-26 10:46 | RAD_ITS ---
STUDY: X-RAY - ABDOMEN/PELVIS REASON FOR EXAM: Male, 63 years old. OG tube placement TECHNIQUE: Single AP view of the abdomen / pelvis. COMPARISON: None. FINDINGS: Normal visualized lung bases. Enteric tube overlies the stomach. There is an unremarkable bowel gas pattern. There is no demonstrated free abdominal air. The visualized liver, spleen and kidneys are grossly normal in size and morphology. Normal soft tissue structures. Normal visualized osseous structures. RAD/Abdomen Single View (Portable) IMPRESSION: Enteric tube overlies the stomach. Electronically Signed: Andrew Coleman, at 11:41 EST Tel , Service support ,
[2019-01-26] MEDS: 0.9% Normal Saline 1,000 ML 999 ML IV (10:51)
[2019-01-26 11:20] LABS: Base Excess 4 mmol/L (-2 to +2); Bicarbonate 28.5 mmol/L (22-26); Blood Gas Specimen Type ART; FI02 50; Mode A-C; O2 Delivery Device Vent; PEEP 5; PO2 48 mmHG (75-100); RR 14; SITE R Brachial; SO2 84 % (95-99); Time Given 1116; Total Carbon Dioxide 30 mmol/L; Vt 450; pCO2 43.8 mmHg (35-45); pH 7.42 (7.35-7.45)
[2019-01-26 11:51] LABS: CPK Total, Creatine Kinase 45 U/L (39-308); Triglycerides 130 mg/dL
--- NOTE | 2019-01-26 12:00 | CASEMGMT ---
Patient is now intubated. His photoresist contact printer on his demographics is his ex-fiance (Chely Wills). Patient completed healthcare poa papers in May of this year and he named Chely as his healthcare poa. SW called Chely and she is aware patient named her as his healthcare poa. She is in agreement with making decisions that need made for now. She asked that we keep her updated. SW printed his healthcare poa and healthcare lw and placed them in his chart. HENRIETTA also updated RN. Jane GOVEA MSW
--- NOTE | 2019-01-26 12:25 | NURSING ---
1000 RNS, respiratory, and Dr. Millan at bedside for intubation 1002 4mg IVP Versed given by Dr. millan followed by NS flush 1002 20mg etomidate IVP given by Dr. Millan followed by NS flush 1004 Dr. Millan intubated with 7.5 ETT, positive color change, equal Breath sounds bilaterally, 22 @the lip, OG placed by Anjelica Jolley RN, CXray ordered for verification of placement.
[2019-01-26 13:21] LABS: Absolute Lymphocyte Count 0.67 X10^3/uL (0.83-4.51); Absolute Neutrophil Count 9.9 X10^3/uL (2.0-7.7); Basophil# 0.02 X10^3/uL; Basophil% 0.2 % (0-1); Hematocrit 42.1 % (40-54); Hemoglobin 13.6 g/dL (13.0-16.5); Lymphocyte # 0.67 X10^3/ul (4.0); Lymphocyte % 5.4 % (19-41); Mean Corp Hgb Conc 32.3 g/dL (32-36); Mean Corpuscular Volume 105.3 fL (80-94); Mean Platelet Vol. 10.7 fl (6.2-12.0); Monocyte# 1.66 X10^3/uL; Monocyte% 13.4 % (0-10); NRBC Flagged by Analyzer 0 % (0-5); Neutrophil # 9.94 X10^3/uL (2.7-7.7); Neutrophil % 80.5 % (47-70); POSITIVE DIFFERENTIAL YES; POSITIVE MORPHOLOGY YES; Platelet Count 107 K/mm3 (150-450); RBC Distribution Width CV 13.9 % (11.6-14.6); RBC Distribution Width SD 54.4 fl (35.1-43.9); White Blood Count 12.4 K/mm3 (4.4-11.0)
[2019-01-26 13:29] LABS: BUN 16 mg/dL (7-18); BUN/Creat Ratio 24.6 RATIO (10-20); Creatinine, Serum 0.65 mg/dL (0.70-1.30); EST Glomerular Filtration Rate 133 mL/min (>60); Estimated Creatinine Clearance 119.34 ml/min; Glucose 126 mg/dL (74-106)
[2019-01-26 13:29] LABS: Lactic Acid 3.2 mmol/L (0.4-2.0)
[2019-01-26 13:30] LABS: ALB/GLOB Ratio 0.6 RATIO (0.9-2.4); AST(SGOT) 44 U/L (15-37); Alanine Aminotransfer ALT/SGPT 41 U/L (16-61); Albumin, Serum 2.4 g/dL (3.2-5.0); Alkaline Phosphatase 77 U/L (45-117); Anion Gap 7 (5-15); Calcium,Total 8.8 mg/dL (8.5-10.1); Chloride 106 mmol/L (98-107); Est Glom Filt Rate - Afr Amer 161 mL/min (>60); Globulin 3.9 g/dL (2.2-4.2); Potassium 3.9 mmol/L (3.5-5.1); Protein, Total 6.3 g/dL (6.4-8.2); Sodium Level 143 mmol/L (136-145)
[2019-01-26 13:31] LABS: Differential Indicated SCAN CRITERIA MET
[2019-01-26] MEDS: Lactated Ringers 1,000 ML 999 ML IV ×2 (13:37→14:41)
--- NOTE | 2019-01-26 13:37 | PCM.RX.CS ---
Consult Pharmacy has been consulted to manage selected antiobiotic: Vancomycin Type of Consult: New start Suspected Infection: Sepsis Prior Doses of Antibiotics Received/Current Regimen: none Labs: Sodium 143 mmol/L (136-145) 01/26/19 12:55 Potassium 3.9 mmol/L (3.5-5.1) 01/26/19 12:55 Chloride 106 mmol/L (98-107) 01/26/19 12:55 Carbon Dioxide 30.0 mmol/L (21.0-32.0) 01/26/19 12:55 Anion Gap 7 (5-15) 01/26/19 12:55 BUN 16 mg/dL (7-18) 01/26/19 12:55 Creatinine 0.65 mg/dL (0.70-1.30) L 01/26/19 12:55 Est GFR (MDRD) Af Amer 161 mL/min (>60) 01/26/19 12:55 Est GFR (MDRD) Non-Af 133 mL/min (>60) 01/26/19 12:55 BUN/Creatinine Ratio 24.6 RATIO (10-20) H 01/26/19 12:55 Glucose 126 mg/dL (74-106) H 01/26/19 12:55 Microbiology: Microbiology 01/24/19 06:02 Sputum, Expectorated/Coughed Gram Stain - Final 01/24/19 06:02 Sputum, Expectorated/Coughed Respiratory Culture - Final 01/23/19 23:40 Mucosa - Nose Respiratory Panel (PCR) - Final 01/23/19 18:45 Mucosa - Nasopharyngeal Influenza Types A,B Direct FA (ARACELI) - Final Weight used for dosin kg Estimated Creatinine Clearance: 97ml/min Goal Trough: 15-20 mcg/mL Pharmacy Plan for Drug Dosing: Recommend an initial dose of Vancomycin of 25mg/kg or 2000mg IV x1. Then based on pt's weight and CrCl recommend Vancomycin 1750mg IV q12h to start 01/26/19 at 2200. Est trough for the pt is 15-20. Trough will be drawn before the 4th total dose on 01/27/19 at 2130 Pharmacy Service will continue to monitor and adjust dosing as required. Follow-Up Labs: Trough Vancomycin - 01/27/19 at 2130
[2019-01-26] MEDS: Gabapentin 300 MG Capsule GT ×2 (14:41→20:49)
--- NOTE | 2019-01-26 15:25 | NURSING ---
placed patient on cooling blanket
[2019-01-26] MEDS: Vital AF 1.2 Cal Liquid 1,000 ML 60 ML GT (16:49)
[2019-01-26] MEDS: Propofol 10MG/Ml 1,000 MG/100 ML Bottle 8.1 MG CONT INF (16:51)
[2019-01-26 16:55] LABS: Reflex Lactate? Y
[2019-01-26 16:56] LABS: Lactic Acid 4.6 mmol/L (0.4-2.0)
[2019-01-26 19:59] LABS: Reflex Lactate? Y
[2019-01-26] MEDS: Chlorhexidine 15 ML PO (20:48)
[2019-01-26] MEDS: Atorvastatin Calcium 80 MG Tablet GT (20:49)
[2019-01-26] MEDS: APIXABAN 2.5 MG TABLET GT (20:50)
[2019-01-26 22:36] LABS: Bedside Glucose 166 mg/dL (70-110)
[2019-01-26] MEDS: Famotidine 20 MG Tablet GT (22:36)
[2019-01-26] MEDS: fentaNYL drip 100 ML 7.5 MCG IV (23:38)
[2019-01-27] VITALS (70 sets, daily range): BP systolic 71–130; BP diastolic 42–79; PULSE 72–93; RESP 14–21; TEMP 36.2–37.3; O2SAT 85–97; BMI 31.9
[2019-01-27] MEDS: Ipratropium/Albuterol Sulfate 3 ML AMPUL.NEB INHALATION ×6 (03:00→23:13)
[2019-01-27] MEDS: Propofol 10MG/Ml 1,000 MG/100 ML Bottle 8.1 MG CONT INF (03:14)
[2019-01-27] MEDS: Gabapentin 300 MG Capsule GT ×3 (05:49→21:09)
--- NOTE | 2019-01-27 06:27 | PN_ITS ---
Subjective: The patient was seen and examined at the bedside this morning. Events from the last 24 hours have been reviewed. Although the patient is currently afebrile, he did spike fevers yesterday afternoon with a T-max of 104.6 ?F noted. Hemodynamics have been somewhat tenuous overnight. The patient's FiO2 and PEEP requirements had to be increased overnight. However, respiratory therapy reports that they have not had to suction a significant amount of secretions from the endotracheal tube. The patient is currently documented to be overall net +6.5 L for the admission. He was started on tube feeds yesterday, which are currently at goal rate. He is sedated at the present time on both propofol and fentanyl. Objective: The patient's most recent lab work, culture data and imaging studies have all been personally reviewed. Surface echocardiogram revealed normal LV size and function with an ejection fraction of 65%. There was evidence of stage I diastolic dysfunction, nonetheless. The right ventricle was noted to be moderately dilated. Sputum, blood and urine cultures are currently pending. General: - - Remains intubated, sedated and mechanically ventilated. Occasional ventilator dyssynchrony noted. HEENT: Atraumatic, PERRLA, Normocephalic Oral: No Gingival or Mucosal Lesions/ Ulcerations, - - Endotracheal and OG tubes in place. Neck: Supple, No Nodes, Trachea Midline Lungs: No rhonchi, No wheeze, No rales, Diminished Cardiovascular: Normal S1, Normal S2, No murmurs, Tachycardic Abdomen: Bowel Sounds Present, Soft, Non Tender, Non-Distended Extremities: No clubbing, No cyanosis, - - Bilateral lower extremity pitting edema present Skin: No breakdown Musculoskeletal: No Tenderness to Palpation of Joints or Extremities Lymphatic: No Cervical, Supraclavicular, or Inguinal Adenopathy Neurological: - - No focal neurological deficits. Currently sedated. Moves all extremities spontaneously. Vital Signs Temp Pulse Resp BP Pulse Ox 98.7 F 90 21 H 92/58 L 88 01/27/19 06:00 01/27/19 06:18 01/27/19 06:18 01/27/19 06:00 01/27/19 06:18 Oxygen Flow Rate (L/min) 6 Oxygen Delivery Method Mechanical Ventilator Weight: 219 lb 5.759 oz Body Mass Index (BMI) 31.9 Intake and Output for Last 24 Hours 01/25/19 01/26/19 01/27/19 23:59 23:59 23:59 Intake Total 680 / 680 5126.01 / 5136.86 614.45 / 614.45 Output Total 1100 / 1350 1175 / 1175 150 / 150 Balance -420 / -670 3951.01 / 3961.86 464.45 / 464.45 Labs (Last 48 Hours) 01/25/19 01/25/19 01/25/19 07:15 07:15 07:15 WBC 9.9 RBC 3.68 L Hgb 12.5 L Hct 37.2 L MCV 101.1 H MCH 34.0 H MCHC 33.6 RDW Std Deviation 49.1 H RDW Coeff of Mohsen 13.1 Plt Count 101 L MPV 10.9 Immature Gran % (Auto) 0.600 Neut % (Auto) 83.3 H Lymph % (Auto) 8.9 L Morehouse % (Auto) 7.1 Eos % (Auto) 0.0 Baso % (Auto) 0.1 Absolute Neuts (auto) 8.2 H Absolute Lymphs (auto) 0.88 Nucleated RBC % 0 Differential Comment Diff Path Review ESR PT INR Specimen Type Sample Site pH Bicarbonate Actual POC Total CO2 Base Excess O2 Saturation O2 % ABG pCO2 ABG pO2 Dariusz Test Respiration Rate O2 Delivery Device Vent Mode Tidal Volume POC PEEP Blood Gas Notified Whom Blood Gas Notified Time Sodium 136 Potassium 4.2 Chloride 100 Carbon Dioxide 29.0 Anion Gap 7 BUN 17 Creatinine 0.51 L Estim Creat Clear Calc 152.11 Est GFR (MDRD) Af Amer 211 Est GFR (MDRD) Non-Af 174 BUN/Creatinine Ratio 33.1 H Glucose 173 H Lactic Acid Calcium 9.1 Total Bilirubin AST ALT Alkaline Phosphatase Total Creatine Kinase Total Protein Albumin Globulin Albumin/Globulin Ratio Triglycerides Whole Bld Vitamin B1 Vitamin B12 621 RBC Folate Hemolysate RBC Folate Hematocrit Acetylchol Rcpt Block Ab Acetylchol Rcpt Modu Ab Miscellaneous Cytology Miscellaneous Test POC Glucose 01/26/19 01/26/19 01/26/19 06:45 06:45 10:24 WBC RBC Hgb Hct MCV MCH MCHC RDW Std Deviation RDW Coeff of Mohsen Plt Count MPV Immature Gran % (Auto) Neut % (Auto) Lymph % (Auto) Morehouse % (Auto) Eos % (Auto) Baso % (Auto) Absolute Neuts (auto) Absolute Lymphs (auto) Nucleated RBC % Differential Comment Diff Path Review ESR 44 H PT 13.7 INR 1.1 Specimen Type Sample Site pH Bicarbonate Actual POC Total CO2 Base Excess O2 Saturation O2 % ABG pCO2 ABG pO2 Dariusz Test Respiration Rate O2 Delivery Device Vent Mode Tidal Volume POC PEEP Blood Gas Notified Whom Blood Gas Notified Time Sodium Potassium Chloride Carbon Dioxide Anion Gap BUN Creatinine Estim Creat Clear Calc Est GFR (MDRD) Af Amer Est GFR (MDRD) Non-Af BUN/Creatinine Ratio Glucose Lactic Acid Calcium Total Bilirubin AST ALT Alkaline Phosphatase Total Creatine Kinase Total Protein Albumin Globulin Albumin/Globulin Ratio Triglycerides Whole Bld Vitamin B1 Pending Vitamin B12 RBC Folate Hemolysate Pending RBC Folate Pending Hematocrit Pending Acetylchol Rcpt Block Ab Acetylchol Rcpt Modu Ab Miscellaneous Cytology Miscellaneous Test POC Glucose 01/26/19 01/26/19 01/26/19 10:24 10:24 10:25 WBC RBC Hgb Hct MCV MCH MCHC RDW Std Deviation RDW Coeff of Mohsen Plt Count MPV Immature Gran % (Auto) Neut % (Auto) Lymph % (Auto) Morehouse % (Auto) Eos % (Auto) Baso % (Auto) Absolute Neuts (auto) Absolute Lymphs (auto) Nucleated RBC % Differential Comment Diff Path Review ESR PT INR Specimen Type Sample Site pH Bicarbonate Actual POC Total CO2 Base Excess O2 Saturation O2 % ABG pCO2 ABG pO2 Dariusz Test Respiration Rate O2 Delivery Device Vent Mode Tidal Volume POC PEEP Blood Gas Notified Whom Blood Gas Notified Time Sodium Potassium Chloride Carbon Dioxide Anion Gap BUN Creatinine Estim Creat Clear Calc Est GFR (MDRD) Af Amer Est GFR (MDRD) Non-Af BUN/Creatinine Ratio Glucose Lactic Acid Calcium Total Bilirubin AST ALT Alkaline Phosphatase Total Creatine Kinase 45 Total Protein Albumin Globulin Albumin/Globulin Ratio Triglycerides 130 Whole Bld Vitamin B1 Vitamin B12 RBC Folate Hemolysate RBC Folate Hematocrit Acetylchol Rcpt Block Ab Pending Acetylchol Rcpt Modu Ab Pending Miscellaneous Cytology Miscellaneous Test Pending POC Glucose 01/26/19 01/26/19 01/26/19 11:17 12:50 12:55 WBC 12.4 H RBC 4.00 L Hgb 13.6 Hct 42.1 MCV 105.3 H MCH 34.0 H MCHC 32.3 RDW Std Deviation 54.4 H RDW Coeff of Mohsen 13.9 Plt Count 107 L MPV 10.7 Immature Gran % (Auto) 0.500 Neut % (Auto) 80.5 H Lymph % (Auto) 5.4 L Morehouse % (Auto) 13.4 H Eos % (Auto) 0.0 Baso % (Auto) 0.2 Absolute Neuts (auto) 9.9 H Absolute Lymphs (auto) 0.67 L Nucleated RBC % 0 Differential Comment COMMENT Diff Path Review May foll ESR PT INR Specimen Type ART Sample Site R Brachial pH 7.42 Bicarbonate Actual 28.5 H POC Total CO2 30 Base Excess 4 H O2 Saturation 84 L O2 % 50 ABG pCO2 43.8 ABG pO2 48 L Dariusz Test NA Respiration Rate 14 O2 Delivery Device Vent Vent Mode A-C Tidal Volume 450 POC PEEP 5 Blood Gas Notified Whom ICU MD Blood Gas Notified Time 1116 Sodium Potassium Chloride Carbon Dioxide Anion Gap BUN Creatinine Estim Creat Clear Calc Est GFR (MDRD) Af Amer Est GFR (MDRD) Non-Af BUN/Creatinine Ratio Glucose Lactic Acid 3.2 H Calcium Total Bilirubin AST ALT Alkaline Phosphatase Total Creatine Kinase Total Protein Albumin Globulin Albumin/Globulin Ratio Triglycerides Whole Bld Vitamin B1 Vitamin B12 RBC Folate Hemolysate RBC Folate Hematocrit Acetylchol Rcpt Block Ab Acetylchol Rcpt Modu Ab Miscellaneous Cytology Miscellaneous Test POC Glucose 01/26/19 01/26/19 01/26/19 12:55 15:00 15:55 WBC RBC Hgb Hct MCV MCH MCHC RDW Std Deviation RDW Coeff of Mohsen Plt Count MPV Immature Gran % (Auto) Neut % (Auto) Lymph % (Auto) Morehouse % (Auto) Eos % (Auto) Baso % (Auto) Absolute Neuts (auto) Absolute Lymphs (auto) Nucleated RBC % Differential Comment Diff Path Review ESR PT INR Specimen Type Sample Site pH Bicarbonate Actual POC Total CO2 Base Excess O2 Saturation O2 % ABG pCO2 ABG pO2 Dariusz Test Respiration Rate O2 Delivery Device Vent Mode Tidal Volume POC PEEP Blood Gas Notified Whom Blood Gas Notified Time Sodium 143 Potassium 3.9 Chloride 106 Carbon Dioxide 30.0 Anion Gap 7 BUN 16 Creatinine 0.65 L Estim Creat Clear Calc 119.34 Est GFR (MDRD) Af Amer 161 Est GFR (MDRD) Non-Af 133 BUN/Creatinine Ratio 24.6 H Glucose 126 H Lactic Acid 4.6 H* Calcium 8.8 Total Bilirubin 0.60 AST 44 H ALT 41 Alkaline Phosphatase 77 Total Creatine Kinase Total Protein 6.3 L Albumin 2.4 L Globulin 3.9 Albumin/Globulin Ratio 0.6 L Triglycerides Whole Bld Vitamin B1 Vitamin B12 RBC Folate Hemolysate RBC Folate Hematocrit Acetylchol Rcpt Block Ab Acetylchol Rcpt Modu Ab Miscellaneous Cytology Cancelled Miscellaneous Test POC Glucose 01/26/19 22:29 WBC RBC Hgb Hct MCV MCH MCHC RDW Std Deviation RDW Coeff of Mohsen Plt Count MPV Immature Gran % (Auto) Neut % (Auto) Lymph % (Auto) Morehouse % (Auto) Eos % (Auto) Baso % (Auto) Absolute Neuts (auto) Absolute Lymphs (auto) Nucleated RBC % Differential Comment Diff Path Review ESR PT INR Specimen Type Sample Site pH Bicarbonate Actual POC Total CO2 Base Excess O2 Saturation O2 % ABG pCO2 ABG pO2 Dariusz Test Respiration Rate O2 Delivery Device Vent Mode Tidal Volume POC PEEP Blood Gas Notified Whom Blood Gas Notified Time Sodium Potassium Chloride Carbon Dioxide Anion Gap BUN Creatinine Estim Creat Clear Calc Est GFR (MDRD) Af Amer Est GFR (MDRD) Non-Af BUN/Creatinine Ratio Glucose Lactic Acid Calcium Total Bilirubin AST ALT Alkaline Phosphatase Total Creatine Kinase Total Protein Albumin Globulin Albumin/Globulin Ratio Triglycerides Whole Bld Vitamin B1 Vitamin B12 RBC Folate Hemolysate RBC Folate Hematocrit Acetylchol Rcpt Block Ab Acetylchol Rcpt Modu Ab Miscellaneous Cytology Miscellaneous Test POC Glucose 166 H Microbiology 01/26/19 10:45 Sputum, Induced/Lukens Gram Stain - Final 01/23/19 18:10 Blood Culture (Wb) - Right Forearm Blood Culture - Preliminary No growth in 48 hours. 01/23/19 18:00 Blood Culture (Wb) - Anticubital Left Blood Culture - Preliminary No growth in 48 hours. 01/24/19 06:02 Sputum, Expectorated/Coughed Gram Stain - Final 01/24/19 06:02 Sputum, Expectorated/Coughed Respiratory Culture - Final Clinical Impression(s) from Imaging Studies Brain CT 01/23/19 18:35 IMPRESSION: Chronic involutional changes of the brain. Electronically Signed: Ford Craig MD at 19:28 EST , Service support , Chest X-Ray 01/23/19 18:37 IMPRESSION: Calcified plaques of the thoracic aorta. Multiple old bilateral rib fractures. No acute cardiopulmonary disease process is seen. Electronically Signed: Ford Craig MD at 18:56 EST , Service support , Head MRA 01/24/19 12:20 IMPRESSION: Normal MRA of the head. No demonstrated aneurysm, dissection, stenosis, or occlusion. Electronically Signed: Renetta Diaz MD at 16:09 EST Tel , Service support , Neck MRA 01/24/19 12:20 IMPRESSION: Normal bilateral cervical carotid and vertebral arteries. Electronically Signed: Renetta Diaz MD at 16:15 EST Tel , Service support , Brain MRI 01/24/19 12:30 IMPRESSION: No acute infarct or intracranial hemorrhage. Mild involutional changes of the brain, as described above. Electronically Signed: Andrew Coleman, at 15:29 EST Tel , Service support , Chest X-Ray 01/25/19 09:45 IMPRESSION: Hazy infiltrates at the right lung base may represent atelectasis or pneumonia in the proper clinical setting. Electronically Signed: Andrew Coleman, at 10:46 EST Tel , Service support , Chest X-Ray 01/26/19 09:27 IMPRESSION: Persistent hazy infiltrates at the right lung base may represent aspiration pneumonia. Small right pleural effusion. Electronically Signed: Andrew Coleman, at 10:01 EST Tel , Service support , Chest X-Ray 01/26/19 10:05 IMPRESSION: ET tube as described above. Persistent hazy infiltrates at the right lung base may represent aspiration pneumonia. Electronically Signed: Andrew Coleman, at 11:31 EST Tel , Service support , KUB X-Ray 01/26/19 10:05 IMPRESSION: Enteric tube overlies the stomach. Electronically Signed: Andrew Coleman, at 11:35 EST Tel , Service support , KUB X-Ray 01/26/19 10:46 IMPRESSION: Enteric tube overlies the stomach. Electronically Signed: Andrew Coleman, at 11:41 EST Tel , Service support , Medical Necessity - Tobacco Use Smoking Status: Current every day smoker Tobacco Use: Cigarettes Assessment/Plan All Active Problems CVA (cerebral vascular accident) (Acute) Slurred speech (Acute) COPD exacerbation (Acute) RECOMMENDATIONS: 1. Obtain repeat plain film chest x-ray this morning. 2. Obtain repeat arterial blood gas. 3. Continue to wean FiO2 and PEEP to maintain oxygen saturations at or above 90%. 4. Continue propofol and fentanyl for sedation. 5. Continue empiric antimicrobials, pending infectious work-up. 6. Continue scheduled bronchodilators and steroids. 7. Continue tube feeds as ordered. 8. Continue appropriate ICU prophylaxis. IMPRESSIONS: 1. Acute on chronic hypoxemic respiratory failure/severe sepsis secondary to presumed aspiration pneumonia The patient was emergently transferred to the ICU on the morning of January 26, where he did require intubation due to impending respiratory failure following an aspiration event. The patient will remain on broad-spectrum antimicrobial coverage, pending infectious work-up. He has been adequately volume resuscitated at this time. Continue scheduled bronchodilators and IV steroids. Continue to wean FiO2 and PEEP to maintain oxygen saturations at or above 90%. Repeat plain film chest x-ray and arterial blood gas will be obtained this morning. Continue tube feeds as ordered. 2. COPD with exacerbation Inciting etiology appears to be aspiration event. Continue current supportive measures as noted above along with bronchodilators and steroids. Wean oxygen as tolerated. 3. Slurred speech Neurology is currently following. Work-up has been unrevealing to date. 4. History of venous thrombi embolic disease/hypertension/hyperlipidemia/seizure disorder/continuous tobacco dependency Complicates care, management, recovery and prognosis. Hold home antihypertensives and diuretics for now. Continue antiepileptics. UPDATE: Following my initial evaluation of the patient, I was notified by nursing staff that the patient's blood pressures had dropped. This is likely multifactorial and related to the patient's underlying infection coupled with the sedation that is currently being employed. The patient will be given a small fluid challenge and if he remains hemodynamically unstable, vasopressor support will be initiated. We will plan to have PICC line placed today as well. TIME: 44 minutes of critical care time, inclusive of procedures, was spent addressing the patient's acute on chronic hypoxemic respiratory failure, severe sepsis secondary to presumed aspiration pneumonia, COPD with exacerbation, review of all data and collaboration with the care team. ([id number]) Code Visit [id number]: [id number] Critical care first hour
--- NOTE | 2019-01-27 06:29 | RAD_ITS ---
HISTORY: SOB Short of Breath/Dyspnea ADDITIONAL HISTORY: None provided. TECHNIQUE: Frontal chest radiograph. Number of images including paperwork: 1 COMPARISON: 01/26/2019 FINDINGS: LUNGS AND PLEURA: Mild decrease in right basilar opacity. Mild increase in left basilar opacity. Findings could be related to atelectasis and/or infiltrates. CARDIAC SILHOUETTE: Stable. MEDIASTINUM AND SARAH: Stable. UPPER ABDOMEN: Unremarkable. SKELETON AND SOFT TISSUES: No acute findings. OTHER DEVICES AND HARDWARE: Endotracheal tube tip in the mid thoracic trachea. Gastric tube extends into the stomach, tip below the level of the film. RAD/Chest 1 View (Portable) IMPRESSION: Bibasilar pulmonary opacities with mild decrease on the right and mild increase on the left. at 0744 Reported and signed by: Vidhya Tierney MD Electronically Signed: Vidhya Tierney MD at 7:44 EST Tel , Service support ,
[2019-01-27 07:03] LABS: Absolute Lymphocyte Count 0.88 X10^3/uL (0.83-4.51); Absolute Neutrophil Count 11.6 X10^3/uL (2.0-7.7); Basophil# 0.03 X10^3/uL; Basophil% 0.2 % (0-1); Eosinophil# 0.04 X10^3/uL; Eosinophils% 0.3 % (0-5); Hematocrit 36.6 % (40-54); Lymphocyte # 0.88 X10^3/ul (4.0); Lymphocyte % 6.4 % (19-41); Mean Corp Hgb Conc 32.8 g/dL (32-36); Mean Corpuscular Hgb 34.7 pg (27.0-32.0); Mean Corpuscular Volume 105.8 fL (80-94); Mean Platelet Vol. 11.2 fl (6.2-12.0); Monocyte# 0.97 X10^3/uL; NRBC Flagged by Analyzer 0 % (0-5); Neutrophil # 11.63 X10^3/uL (2.7-7.7); Neutrophil % 84.4 % (47-70); POSITIVE COUNT YES; POSITIVE MORPHOLOGY YES; Platelet Count 84 K/mm3 (150-450); RBC Distribution Width CV 14.2 % (11.6-14.6); Red Blood Count 3.46 M/mm3 (4.6-6.2); White Blood Count 13.8 K/mm3 (4.4-11.0)
[2019-01-27 07:05] LABS: Differential Indicated SCAN CRITERIA MET
[2019-01-27 07:12] LABS: Anion Gap 5 (5-15); BUN 17 mg/dL (7-18); BUN/Creat Ratio 34.6 RATIO (10-20); Calcium,Total 8.5 mg/dL (8.5-10.1); Chloride 103 mmol/L (98-107); Creatinine, Serum 0.49 mg/dL (0.70-1.30); EST Glomerular Filtration Rate 183 mL/min (>60); Est Glom Filt Rate - Afr Amer 222 mL/min (>60); Estimated Creatinine Clearance 158.31 ml/min; Glucose 181 mg/dL (74-106); Sodium Level 138 mmol/L (136-145)
[2019-01-27 07:26] LABS: Base Excess 5 mmol/L (-2 to +2); Bicarbonate 30.6 mmol/L (22-26); Blood Gas Specimen Type ART; FI02 80; Mode A-C; O2 Delivery Device Vent; PEEP 10; PO2 59 mmHG (75-100); RR 14; SITE R Brachial; SO2 87 % (95-99); Time Given 719; Total Carbon Dioxide 32 mmol/L; Vt 450; pCO2 58.8 mmHg (35-45); pH 7.32 (7.35-7.45)
--- NOTE | 2019-01-27 09:27 | CM.UR ---
Participated in interdisciplinary rounds this am. Patient remains on vent. Will possibly need to start on levo today d/t low map. Explained that dc is undetermined but have home vs SNF but with his currently vent setting will anticipate need for SNF. dr. Medellin agreed. RANDY Nina requested I confirm who is listed as HPOA as she has name and phone number for andrespau Chely Wills. I did confirm that she is who is listed as HPOA on the scanned advance directives and alerted ICU. Diane Gastelum RN, CCM.
[2019-01-27] MEDS: Chlorhexidine 15 ML PO ×2 (09:56→21:10)
[2019-01-27] MEDS: APIXABAN 2.5 MG TABLET GT ×2 (09:57→21:08)
[2019-01-27] MEDS: Famotidine 20 MG Tablet GT ×2 (09:59→21:09)
[2019-01-27] MEDS: Senna/Docusate Sodium 1 Tablet 2 TABLET GT ×2 (10:04→21:10)
[2019-01-27] MEDS: Polyethylene Glycol 3350 17 GM PACKET GT ×2 (10:04→21:09)
--- NOTE | 2019-01-27 10:10 | PCM.PN.HOSP ---
Patient Problems: Active and Suspected Problems CVA (cerebral vascular accident) (Acute) Slurred speech (Acute) Subjective: Patient seen and examined. He remains intubated and is heavily sedated. His blood pressure was running low this morning and patient is to be started on vasopressor support. WBC has trended up to 13.8 today. Unable to do comprehensive review of systems as patient is intubated and sedated. Vitals/I&O's: Vital Signs Temp Pulse Resp BP Pulse Ox 98.5 F 86 20 H 91/54 L 91 01/27/19 07:00 01/27/19 07:00 01/27/19 07:00 01/27/19 07:00 01/27/19 08:00 Oxygen Flow Rate (L/min) 6 Oxygen Delivery Method Mechanical Ventilator Weight: 219 lb 5.759 oz Body Mass Index (BMI) 31.9 Intake and Output for Last 24 Hours 01/25/19 01/26/19 01/27/19 23:59 23:59 23:59 Intake Total 680 / 680 5126.01 / 5136.86 646.58 / 646.58 Output Total 1100 / 1350 1175 / 1175 150 / 150 Balance -420 / -670 3951.01 / 3961.86 496.58 / 496.58 General: - - intubated, sedated, RASS score is -4 HEENT: Atraumatic, PERRLA, EOMI, Normocephalic Oral: Moist Mucosa Neck: Supple, No JVD, Negative Carotid Bruits Lungs: - - decreased breath sounds bibasally, no wheezes or crackles. intubated. AC/VC, TV-500mls, [id number] Cardiovascular: Regular rate, Regular Rhythm, Normal S1, Normal S2, No murmurs Abdomen: Bowel Sounds Present, Soft, Non Tender, Non-Distended, No Hepato-splenomegaly Extremities: No clubbing, No cyanosis, No edema, Capillary Refill Less than 3 Seconds Skin: No rashes, No breakdown Musculoskeletal: No Tenderness to Palpation of Joints or Extremities Lymphatic: No Cervical, Supraclavicular, or Inguinal Adenopathy Neurological: - - intubated, heavily sedated, RASS score is -4 Microbiology Past 72 Hours 01/26/19 10:45 Sputum, Induced/Lukens Gram Stain - Final 01/23/19 18:10 Blood Culture (Wb) - Right Forearm Blood Culture - Preliminary No growth in 48 hours. 01/23/19 18:00 Blood Culture (Wb) - Anticubital Left Blood Culture - Preliminary No growth in 48 hours. 01/24/19 06:02 Sputum, Expectorated/Coughed Gram Stain - Final 01/24/19 06:02 Sputum, Expectorated/Coughed Respiratory Culture - Final 01/23/19 23:40 Mucosa - Nose Respiratory Panel (PCR) - Final Laboratory Results 01/26/19 10:24: ESR 44 H 01/26/19 10:24: Miscellaneous Test Pending 01/26/19 10:24: Acetylchol Rcpt Block Ab Pending, Acetylchol Rcpt Modu Ab Pending 01/26/19 10:25: Total Creatine Kinase 45, Triglycerides 130 01/26/19 11:17: Specimen Type ART, Sample Site R Brachial, pH 7.42, Bicarbonate Actual 28.5 H, POC Total CO2 30, Base Excess 4 H, O2 Saturation 84 L, O2 % 50, ABG pCO2 43.8, ABG pO2 48 L, Dariusz Test NA, Respiration Rate 14, O2 Delivery Device Vent, Vent Mode A-C, Tidal Volume 450, POC PEEP 5, Blood Gas Notified Whom ICU MD, Blood Gas Notified Time 1116 01/26/19 12:50: Lactic Acid 3.2 H 01/26/19 12:55: WBC 12.4 H, RBC 4.00 L, Hgb 13.6, Hct 42.1, MCV 105.3 H, MCH 34.0 H, MCHC 32.3, RDW Std Deviation 54.4 H, RDW Coeff of Mohsen 13.9, Plt Count 107 L, MPV 10.7, Immature Gran % (Auto) 0.500, Neut % (Auto) 80.5 H, Lymph % (Auto) 5.4 L, [place] % (Auto) 13.4 H, Eos % (Auto) 0.0, Baso % (Auto) 0.2, Absolute Neuts (auto) 9.9 H, Absolute Lymphs (auto) 0.67 L, Nucleated RBC % 0, Differential Comment COMMENT, Diff Path Review July01/26/19 12:55: Sodium 143, Potassium 3.9, Chloride 106, Carbon Dioxide 30.0, Anion Gap 7, BUN 16, Creatinine 0.65 L, Estim Creat Clear Calc 119.34, Est GFR (MDRD) Af Amer 161, Est GFR (MDRD) Non-Af 133, BUN/Creatinine Ratio 24.6 H, Glucose 126 H, Calcium 8.8, Total Bilirubin 0.60, AST 44 H, ALT 41, Alkaline Phosphatase 77, Total Protein 6.3 L, Albumin 2.4 L, Globulin 3.9, Albumin/Globulin Ratio 0.6 L 01/26/19 15:00: Miscellaneous Cytology Cancelled 01/26/19 15:55: Lactic Acid 4.6 H* 01/26/19 22:29: POC Glucose 166 H 01/27/19 05:45: WBC 13.8 H, RBC 3.46 L, Hgb 12.0 L, Hct 36.6 L, MCV 105.8 H, MCH 34.7 H, MCHC 32.8, RDW Std Deviation 55.0 H, RDW Coeff of Mohsen 14.2, Plt Count 84 L, MPV 11.2, Immature Gran % (Auto) 1.700 H, Neut % (Auto) 84.4 H, Lymph % (Auto) 6.4 L, [place] % (Auto) 7.0, Eos % (Auto) 0.3, Baso % (Auto) 0.2, Absolute Neuts (auto) 11.6 H, Absolute Lymphs (auto) 0.88, Nucleated RBC % 0 01/27/19 05:45: Sodium 138, Potassium 5.0, Chloride 103, Carbon Dioxide 30.0, Anion Gap 5, BUN 17, Creatinine 0.49 L, Estim Creat Clear Calc 158.31, Est GFR (MDRD) Af Amer 222, Est GFR (MDRD) Non-Af 183, BUN/Creatinine Ratio 34.6 H, Glucose 181 H, Calcium 8.5 01/27/19 07:20: Specimen Type ART, Sample Site R Brachial, pH 7.32 L, Bicarbonate Actual 30.6 H, POC Total CO2 32, Base Excess 5 H, O2 Saturation 87 L, O2 % 80, ABG pCO2 58.8 H, ABG pO2 59 L, Respiration Rate 14, O2 Delivery Device Vent, Minute Volume 11.00, Vent Mode A-C, Tidal Volume 450, POC PEEP 10, Blood Gas Notified Whom ICU , Blood Gas Notified Time [address] 01/23/19 18:35 IMPRESSION: Chronic involutional changes of the brain. Electronically Signed: Ford Craig MD at 19:28 EST , Service support , Head MRA 01/24/19 12:20 IMPRESSION: Normal MRA of the head. No demonstrated aneurysm, dissection, stenosis, or occlusion. Electronically Signed: Renetta Diaz MD at 16:09 EST Tel , Service support , Neck MRA 01/24/19 12:20 IMPRESSION: Normal bilateral cervical carotid and vertebral arteries. Electronically Signed: Renetta Diaz MD at 16:15 EST Tel , Service support , Brain MRI 01/24/19 12:30 IMPRESSION: No acute infarct or intracranial hemorrhage. Mild involutional changes of the brain, as described above. Electronically Signed: Andrew Coleman, at 15:29 EST Tel , Service support , KUB X-Ray 01/26/19 10:46 IMPRESSION: Enteric tube overlies the stomach. Electronically Signed: Andrew Coleman, at 11:41 EST Tel , Service support , Chest X-Ray 01/27/19 06:29 IMPRESSION: Bibasilar pulmonary opacities with mild decrease on the right and mild increase on the left. at 0744 Reported and signed by: Vidhay Tierney MD Electronically Signed: Vidhya Tierney MD at 7:44 EST Tel , Service support , Current Medications Acetaminophen (Tylenol) 650 mg PO Q6H PRN PRN PRN Reason: Non-cardiac pain (-12/14) Last Admin: 01/25/19 15:13 Dose: 650 mg Documented by: Acetaminophen (Tylenol Liquid) 650 mg GT Q6H PRN PRN PRN Reason: TEMP>101 Al Hydroxide/Mg Hydroxide (Mylanta Ii) 15 - 30 ml PO Q4H PRN PRN PRN Reason: INDIGESTION Albuterol Sulfate (Ventolin Aerosols) 2.5 mg INHALATION Q2H PRN PRN PRN Reason: dyspnea, wheezing Last Admin: 01/26/19 09:26 Dose: 2.5 mg Documented by: Albuterol/Ipratropium (Duoneb) 3 ml INHALATION Q4HWA.RT [facility] Last Admin: 01/27/19 06:17 Dose: 3 ml Documented by: Apixaban (Eliquis) 2.5 mg GT BID [facility] Last Admin: 01/26/19 20:50 Dose: 2.5 mg Documented by: Atorvastatin Calcium (Lipitor) 80 mg GT QHS [facility] Last Admin: 01/26/19 20:49 Dose: 80 mg Documented by: Chlorhexidine Gluconate () 15 ml PO BID [facility] Last Admin: 01/26/19 20:48 Dose: 15 ml Documented by: Chlorhexidine Gluconate () 1 each TOPICAL DAILY [facility] Dextrose (D50w Syringe) 0 gm IV X1 PRN; Protocol PRN Reason: Hypoglycemia Divalproex Sodium (Depakote Er) 500 mg PO 0700,1300 [facility] Last Admin: 01/26/19 13:30 Dose: Not Given Documented by: Divalproex Sodium (Depakote Er) 1,000 mg PO QHS [facility] Last Admin: 01/25/19 21:41 Dose: 1,000 mg Documented by: Famotidine (Pepcid) 20 mg GT BID [facility] Last Admin: 01/26/19 22:36 Dose: 20 mg Documented by: Gabapentin (Neurontin) 300 mg GT TID [facility] Last Admin: 01/27/19 05:49 Dose: 300 mg Documented by: Glucagon () 1 mg IM .X1 PRN PRN Reason: Hypoglycemia Guaifenesin (Robitussin) 10 ml GT Q6H PRN Sodium Chloride () 250 mls @ 15 mls/hr IV .[id number] PRN PRN Reason: Saline Flush Piperacillin Sod/Tazobactam (Sod 3.375 gm/ Sodium Chloride) 50 mls @ 12.5 mls/hr IV Q8 [facility] Last Admin: 01/27/19 06:30 Dose: 12.5 mls/hr Documented by: Vancomycin IV Pharmacy to Dose (1 ea/ Sodium Chloride) 500 mls @ 250 mls/hr IV X1 PRN; Protocol PRN Reason: Rx to Dose Vancomycin HCl 1,750 mg/ (Sodium Chloride) 535 mls @ 250 mls/hr IV Q12H [facility] Last Infusion: 01/26/19 23:06 Dose: Infused Documented by: Fentanyl () 100 mls @ 5 mls/hr IV UD [facility]; Protocol Last Titration: 01/27/19 07:26 Dose: 150 mcg/hr, 15 mls/hr Documented by: Propofol (Diprivan) 1,000 mg in 100 mls @ 5.418 mls/hr CONT INF .Q12H [facility]; Protocol Last Titration: 01/27/19 07:30 Dose: 30 mcg/kg/min, 16.3 mls/hr Documented by: Enteral Nutritional Formula (Vital Af 1.2 Truong Liquid) 1,000 mls @ 60 mls/hr GT .[id number] [facility] Last Admin: 01/26/19 16:49 Dose: 60 mls/hr Documented by: Magnesium Hydroxide (Milk Of Magnesia) 30 ml GT DAILY PRN PRN Reason: Constipation Methylprednisolone (Solu-Medrol) 40 mg IV Q8 [facility] Last Admin: 01/27/19 05:49 Dose: 40 mg Documented by: Nicotine (Nicoderm Cq (Pbkc)) 21 mg TRANSDERM. DAILY [facility] Last Admin: 01/26/19 11:41 Dose: 21 mg Documented by: Nitroglycerin (Nitrostat) 0.4 mg SUBLINGUAL Q5M PRN PRN Reason: CARDIAC/CHEST PAIN Ondansetron HCl (Zofran) 4 mg IV Q8H PRN PRN PRN Reason: NAUSEA/VOMITING Polyethylene Glycol (Miralax) 17 gm GT BID [facility] Senna/Docusate Sodium (Senokot-S, Lila-Colace) 2 tablet GT BID [facility] Sodium Chloride () 10 - 40 ml IV UD PRN PRN Reason: SALINE FLUSH Last Admin: 01/26/19 13:37 Dose: 10 ml Documented by: Throat Lozenges (Cepacol Sore Throat Lozenge) 1 lozenge MUCOUS MEM Q2H PRN PRN PRN Reason: COUGH Valproic Acid (Depakene) 500 mg GT 4X/DAY [facility] Last Admin: 01/26/19 20:48 Dose: 500 mg Documented by: STROKE Vital Signs/Narrative: Vital Signs Temp Pulse Resp BP Pulse Ox 01/27/19 08:00 91 01/27/19 07:00 98.5 F 86 20 H 91/54 L 90 01/27/19 06:18 90 21 H 88 Medical Necessity - Tobacco Use Smoking Status: Current every day smoker Tobacco Use: Cigarettes Assessment/Plan All Active Problems CVA (cerebral vascular accident) (Acute) Slurred speech (Acute) COPD exacerbation (Acute) 1. Acute hypoxic respiratory failure due to aspiration pneumonia patient acutely aspirated yesterday morning, requiring emergent intubation and sedation. remains intubated and sedated on IV zosyn and vancomycin blood cultures pending sputum culture growing GNR possibly Hemophilus sp critical care on board 2. Septic shock due to aspiration pneumonia BP running low this morning, down to the 80s and 90s systolic has received IVF resuscitation per sepsis protocol to be started on levophed for vasopressor support. critical care on board on IV vancomycin and zosyn 3. Aspiration pneumonia: as under 1 and 2 4. Slurred speech and double vision stroke ruled out per CT and MRI etiology still unclear neurology on board PT/OT and speech therapy on board 5. Hypertension: now hypotensive, so BP meds on hold 6. 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 Seizure disorder: on depakote DVT prophylaxis: on eliquis Code Visit Inpatient E&M: [id number] [facility] Hosp L3
[2019-01-27] MEDS: fentaNYL drip 100 ML 15 MCG IV ×3 (10:25→21:30)
[2019-01-27] MEDS: Propofol 10MG/Ml 1,000 MG/100 ML Bottle 13.5 MG CONT INF (10:25)
[2019-01-27] MEDS: Propofol 10MG/Ml 1,000 MG/100 ML Bottle 16.3 MG CONT INF ×2 (16:30→20:57)
--- NOTE | 2019-01-27 17:00 | NURSING ---
ed re chronic illness deferred til acute illness resolving
[2019-01-27] MEDS: TITRATION PARAMETER CHANGE 1 EACH IV (20:56)
[2019-01-27] MEDS: CHLORHEXIDINE GLUC 2% CLOTH 1 EACH TOWELETTE TOPICAL (20:56)
[2019-01-27] MEDS: Atorvastatin Calcium 80 MG Tablet GT (21:09)
[2019-01-27 22:21] LABS: Bedside Glucose 218 mg/dL (70-110)
[2019-01-27 22:42] LABS: Vancomycin, Trough Level 13.6 ug/mL (5.0-15.0)
[2019-01-28] VITALS (54 sets, daily range): BP systolic 100–161; BP diastolic 53–84; PULSE 46–76; RESP 16; TEMP 36.5–37.3; O2SAT 84–98; BMI 31.9
--- NOTE | 2019-01-28 | CT_ITS ---
STUDY: CTA CHEST REASON FOR EXAM: Male, 63 years old. COPD with signs and symptoms of pulmonary embolus. RADIATION DOSAGE (If Supplied By Facility): CTDIvol = ( 10.29 ) mGy, DLP = ( 564.79 ) mGycm TECHNIQUE: The examination was performed with the intravenous administration of 100 ml of Isovue 370. Post-processing of the angiographic images was performed, with multiplanar reformation and 3D reconstruction. Individualized dose optimization techniques were used for this CT. COMPARISON: Prior comparison studies are not available for review at this time. FINDINGS: Cardiac monitoring leads are present. Patient is intubated. The tip of endotracheal tube is located below the aortic arch. Enteric tube is present with the distal end not imaged on the study. Normal enhancement of the main pulmonary artery and right and left pulmonary arteries. Normal enhancement of the bilateral peripheral pulmonary arteries. Small segmental and subsegmental emboli are visible in the right middle lobe branches of the right pulmonary artery. There is atherosclerotic calcification of the aortic arch with tortuosity. There is no demonstrated aortic dissection. Normal heart and pericardium. There are calcifications of the coronary arteries. Normal mediastinum. Normal hilar regions. Normal visualized trachea and bronchi. The lungs are hyper expanded, with flattening of the hemidiaphragms. There is dense right lower lobe airspace consolidation and possible atelectasis. This could be secondary to pneumonia. There is also left lower lobe airspace consolidation. There are increased lucencies in the upper lobes are probably related to sequela of centrilobular and paraseptal emphysema. There is interstitial thickening present in the left upper lobe that may represent pulmonary fibrosis. Normal pleura. Normal chest wall structures. There are degenerative changes of thoracic spine. The bones appear mildly osteopenic. There is deformity of right-sided ribs that may be the result of old rib fractures. Normal visualized upper abdomen. CT/CTA Chest W/WO Contrast IMPRESSION: 1. Small right middle lobe segmental pulmonary emboli. 2. Bilateral lower lobe airspace consolidations and possible atelectasis suggesting pneumonia. 3. 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 4. No CTA demonstrated arterial dissection. N.B. : The above information has been verbally conveyed by Maddie Jeffers MD to RANDY Galvez, on 01/28/2019 09:50:52 (ET). Electronically Signed: Maddie Jeffers MD at 9:55 EST , Service support ,
--- NOTE | 2019-01-28 00:21 | PCM.RX.CS ---
Consult Pharmacy has been consulted to manage selected antiobiotic: Vancomycin Type of Consult: Follow-up Labs: Sodium 138 mmol/L (136-145) 01/27/19 05:45 Potassium 5.0 mmol/L (3.5-5.1) 01/27/19 05:45 Chloride 103 mmol/L (98-107) 01/27/19 05:45 Carbon Dioxide 30.0 mmol/L (21.0-32.0) 01/27/19 05:45 Anion Gap 5 (5-15) 01/27/19 05:45 BUN 17 mg/dL (7-18) 01/27/19 05:45 Creatinine 0.49 mg/dL (0.70-1.30) L 01/27/19 05:45 Est GFR (MDRD) Af Amer 222 mL/min (>60) 01/27/19 05:45 Est GFR (MDRD) Non-Af 183 mL/min (>60) 01/27/19 05:45 BUN/Creatinine Ratio 34.6 RATIO (10-20) H 01/27/19 05:45 Glucose 181 mg/dL (74-106) H 01/27/19 05:45 Vancomycin Trough 13.6 ug/mL (5.0-15.0) 01/27/19 21:45 Microbiology: Microbiology 01/26/19 12:55 Urine Catheter - [place] Urine Culture - Preliminary Culture exhibits no growth. 01/26/19 10:45 Sputum, Induced/Lukens Gram Stain - Final 01/26/19 10:45 Sputum, Induced/Lukens Respiratory Culture - Preliminary GNR Possible Haemophilus sp. 01/23/19 18:10 Blood Culture (Wb) - Right Forearm Blood Culture - Preliminary No growth in 48 hours. 01/23/19 18:00 Blood Culture (Wb) - Anticubital Left Blood Culture - Preliminary No growth in 48 hours. 01/24/19 06:02 Sputum, Expectorated/Coughed Gram Stain - Final 01/24/19 06:02 Sputum, Expectorated/Coughed Respiratory Culture - Final 01/23/19 23:40 Mucosa - Nose Respiratory Panel (PCR) - Final 01/23/19 18:45 Mucosa - Nasopharyngeal Influenza Types A,B Direct FA (ARACELI) - Final Goal Trough: 15-20 mcg/mL Pharmacy Plan for Drug Dosing: Pharmacy Service will continue to monitor and adjust dosing as required. TROUGH 13.6 INCREASE TO 2GM Q12H NEXT TR 01/29 @ 2029 Follow-Up Labs: Trough Vancomycin Labs to be done on [date and time ordered]: 01/29 @ 2029
[2019-01-28] MEDS: Propofol 10MG/Ml 1,000 MG/100 ML Bottle 16.3 MG CONT INF ×2 (01:21→06:59)
[2019-01-28] MEDS: Vital AF 1.2 Cal Liquid 1,000 ML 60 ML GT (01:34)
[2019-01-28] MEDS: CHLORHEXIDINE GLUC 2% CLOTH 1 EACH TOWELETTE TOPICAL (02:18)
[2019-01-28] MEDS: Ipratropium/Albuterol Sulfate 3 ML AMPUL.NEB INHALATION ×6 (03:10→22:18)
[2019-01-28] MEDS: fentaNYL drip 100 ML 15 MCG IV ×3 (04:00→20:08)
[2019-01-28 05:20] LABS: Anion Gap 6 (5-15); BUN 20 mg/dL (7-18); Calcium,Total 8.1 mg/dL (8.5-10.1); Chloride 101 mmol/L (98-107); Creatinine, Serum 0.53 mg/dL (0.70-1.30); EST Glomerular Filtration Rate 169 mL/min (>60); Est Glom Filt Rate - Afr Amer 204 mL/min (>60); Estimated Creatinine Clearance 146.37 ml/min; Glucose 207 mg/dL (74-106); Potassium 5.1 mmol/L (3.5-5.1); Sodium Level 136 mmol/L (136-145)
[2019-01-28 05:24] LABS: Absolute Neutrophil Count 13.2 X10^3/uL (2.0-7.7); Basophil# 0.02 X10^3/uL; Basophil% 0.1 % (0-1); Eosinophil# 0.02 X10^3/uL; Eosinophils% 0.1 % (0-5); Hematocrit 35.5 % (40-54); Hemoglobin 11.4 g/dL (13.0-16.5); Lymphocyte % 5.9 % (19-41); Mean Corp Hgb Conc 32.1 g/dL (32-36); Mean Corpuscular Hgb 34.3 pg (27.0-32.0); Mean Corpuscular Volume 106.9 fL (80-94); Mean Platelet Vol. 10.8 fl (6.2-12.0); Monocyte# 0.85 X10^3/uL; Monocyte% 5.6 % (0-10); NRBC Flagged by Analyzer 0.1 % (0-5); Neutrophil # 13.15 X10^3/uL (2.7-7.7); Neutrophil % 86.5 % (47-70); POSITIVE COUNT YES; POSITIVE MORPHOLOGY YES; Platelet Count 89 K/mm3 (150-450); RBC Distribution Width CV 13.7 % (11.6-14.6); RBC Distribution Width SD 54.2 fl (35.1-43.9); Red Blood Count 3.32 M/mm3 (4.6-6.2); White Blood Count 15.2 K/mm3 (4.4-11.0)
[2019-01-28] MEDS: Gabapentin 300 MG Capsule GT ×3 (05:34→21:24)
[2019-01-28 05:45] LABS: Bedside Glucose 192 mg/dL (70-110)
[2019-01-28] MEDS: Insulin Lispro 100 UNIT/ML INSULN.PEN SC ×3 (05:46→18:37)
[2019-01-28 06:09] LABS: Differential Indicated SCAN CRITERIA MET
[2019-01-28 06:15] LABS: Platelet Estimate MOD DEC (ADEQ)
--- NOTE | 2019-01-28 06:25 | PN_ITS ---
Subjective: The patient was seen and examined at the bedside this morning. Events from the last 24 hours have been reviewed. The patient is currently afebrile, but is requiring levophed at 2.5 mcg/min to maintain hemodynamic stability. FiO2 and PEEP remains significantly elevated at 70% and 14, respectively. The patient is currently documented to be overall net +10.7 L for the hospital admission. He is currently tolerating tube feeds without issue. No significant secretions have been suctioned from his endotracheal tube. The patient readily desaturates with attempts at weaning his sedation. Objective: The patient's most recent lab work, culture data and imaging studies have all been personally reviewed. Surface echocardiogram revealed normal LV size and function with an ejection fraction of 65%. There was evidence of stage I diastolic dysfunction, nonetheless. The right ventricle was noted to be moderately dilated. Preliminary sputum culture appears to be a gram-negative jan, possible Haemophilus. Blood and urine cultures are pending. General: - - Remains intubated, sedated and mechanically ventilated. No ventilator dyssynchrony at the current time. HEENT: Atraumatic, Normocephalic Oral: No Gingival or Mucosal Lesions/ Ulcerations, - - Endotracheal and OG tubes currently in place Neck: Supple, No Nodes, Trachea Midline Lungs: No rhonchi, No wheeze, No rales, Diminished Cardiovascular: Regular rate, Regular Rhythm, Normal S1, Normal S2 Abdomen: Bowel Sounds Present, Soft, Non Tender Extremities: No clubbing, No cyanosis, - - Bilateral lower external body pitting edema Skin: No breakdown Musculoskeletal: No Tenderness to Palpation of Joints or Extremities Lymphatic: No Cervical, Supraclavicular, or Inguinal Adenopathy Neurological: - - No focal neurological deficits. The patient is currently sedated. Vital Signs Temp Pulse Resp BP Pulse Ox 97.9 F 68 16 108/61 95 01/28/19 05:00 01/28/19 05:00 01/28/19 05:00 01/28/19 05:00 01/28/19 05:00 Oxygen Flow Rate (L/min) 6 Oxygen Delivery Method Mechanical Ventilator Weight: 221 lb 9.033 oz Body Mass Index (BMI) 31.9 Intake and Output for Last 24 Hours 01/26/19 01/27/19 01/28/19 23:59 23:59 23:59 Intake Total 5126.01 / 5136.86 4179.38 / 4215.38 1406.97 / 1406.97 Output Total 1175 / 1175 680 / 680 250 / 250 Balance 3951.01 / 3961.86 3499.38 / 3535.38 1156.97 / 1156.97 Labs (Last 48 Hours) 01/26/19 01/26/19 01/26/19 06:45 06:45 10:24 WBC RBC Hgb Hct MCV MCH MCHC RDW Std Deviation RDW Coeff of Mohsen Plt Count MPV Immature Gran % (Auto) Neut % (Auto) Lymph % (Auto) [place] % (Auto) Eos % (Auto) Baso % (Auto) Absolute Neuts (auto) Absolute Lymphs (auto) Nucleated RBC % Differential Comment Diff Path Review Platelet Estimate ESR 44 H PT 13.7 INR 1.1 Specimen Type Sample Site pH Bicarbonate Actual POC Total CO2 Base Excess O2 Saturation O2 % ABG pCO2 ABG pO2 Dariusz Test Respiration Rate O2 Delivery Device Minute Volume Vent Mode Tidal Volume POC PEEP Blood Gas Notified Whom Blood Gas Notified Time Sodium Potassium Chloride Carbon Dioxide Anion Gap BUN Creatinine Estim Creat Clear Calc Est GFR (MDRD) Af Amer Est GFR (MDRD) Non-Af BUN/Creatinine Ratio Glucose Lactic Acid Calcium Total Bilirubin AST ALT Alkaline Phosphatase Total Creatine Kinase Total Protein Albumin Globulin Albumin/Globulin Ratio Triglycerides Whole Bld Vitamin B1 Pending RBC Folate Hemolysate Pending RBC Folate Pending Hematocrit Pending Vancomycin Trough Acetylchol Rcpt Block Ab Acetylchol Rcpt Modu Ab Miscellaneous Cytology Miscellaneous Test POC Glucose 01/26/19 01/26/19 01/26/19 10:24 10:24 10:25 WBC RBC Hgb Hct MCV MCH MCHC RDW Std Deviation RDW Coeff of Mohsen Plt Count MPV Immature Gran % (Auto) Neut % (Auto) Lymph % (Auto) [place] % (Auto) Eos % (Auto) Baso % (Auto) Absolute Neuts (auto) Absolute Lymphs (auto) Nucleated RBC % Differential Comment Diff Path Review Platelet Estimate ESR PT INR Specimen Type Sample Site pH Bicarbonate Actual POC Total CO2 Base Excess O2 Saturation O2 % ABG pCO2 ABG pO2 Dariusz Test Respiration Rate O2 Delivery Device Minute Volume Vent Mode Tidal Volume POC PEEP Blood Gas Notified Whom Blood Gas Notified Time Sodium Potassium Chloride Carbon Dioxide Anion Gap BUN Creatinine Estim Creat Clear Calc Est GFR (MDRD) Af Amer Est GFR (MDRD) Non-Af BUN/Creatinine Ratio Glucose Lactic Acid Calcium Total Bilirubin AST ALT Alkaline Phosphatase Total Creatine Kinase 45 Total Protein Albumin Globulin Albumin/Globulin Ratio Triglycerides 130 Whole Bld Vitamin B1 RBC Folate Hemolysate RBC Folate Hematocrit Vancomycin Trough Acetylchol Rcpt Block Ab Pending Acetylchol Rcpt Modu Ab Pending Miscellaneous Cytology Miscellaneous Test Pending POC Glucose 01/26/19 01/26/19 01/26/19 11:17 12:50 12:55 WBC 12.4 H RBC 4.00 L Hgb 13.6 Hct 42.1 MCV 105.3 H MCH 34.0 H MCHC 32.3 RDW Std Deviation 54.4 H RDW Coeff of Mohsen 13.9 Plt Count 107 L MPV 10.7 Immature Gran % (Auto) 0.500 Neut % (Auto) 80.5 H Lymph % (Auto) 5.4 L [place] % (Auto) 13.4 H Eos % (Auto) 0.0 Baso % (Auto) 0.2 Absolute Neuts (auto) 9.9 H Absolute Lymphs (auto) 0.67 L Nucleated RBC % 0 Differential Comment COMMENT Diff Path Review May foll Platelet Estimate ESR PT INR Specimen Type ART Sample Site R Brachial pH 7.42 Bicarbonate Actual 28.5 H POC Total CO2 30 Base Excess 4 H O2 Saturation 84 L O2 % 50 ABG pCO2 43.8 ABG pO2 48 L Dariusz Test NA Respiration Rate 14 O2 Delivery Device Vent Minute Volume Vent Mode A-C Tidal Volume 450 POC PEEP 5 Blood Gas Notified Whom ICU Blood Gas Notified Time 1116 Sodium Potassium Chloride Carbon Dioxide Anion Gap BUN Creatinine Estim Creat Clear Calc Est GFR (MDRD) Af Amer Est GFR (MDRD) Non-Af BUN/Creatinine Ratio Glucose Lactic Acid 3.2 H Calcium Total Bilirubin AST ALT Alkaline Phosphatase Total Creatine Kinase Total Protein Albumin Globulin Albumin/Globulin Ratio Triglycerides Whole Bld Vitamin B1 RBC Folate Hemolysate RBC Folate Hematocrit Vancomycin Trough Acetylchol Rcpt Block Ab Acetylchol Rcpt Modu Ab Miscellaneous Cytology Miscellaneous Test POC Glucose 01/26/19 01/26/19 01/26/19 12:55 15:00 15:55 WBC RBC Hgb Hct MCV MCH MCHC RDW Std Deviation RDW Coeff of Mohsen Plt Count MPV Immature Gran % (Auto) Neut % (Auto) Lymph % (Auto) [place] % (Auto) Eos % (Auto) Baso % (Auto) Absolute Neuts (auto) Absolute Lymphs (auto) Nucleated RBC % Differential Comment Diff Path Review Platelet Estimate ESR PT INR Specimen Type Sample Site pH Bicarbonate Actual POC Total CO2 Base Excess O2 Saturation O2 % ABG pCO2 ABG pO2 Dariusz Test Respiration Rate O2 Delivery Device Minute Volume Vent Mode Tidal Volume POC PEEP Blood Gas Notified Whom Blood Gas Notified Time Sodium 143 Potassium 3.9 Chloride 106 Carbon Dioxide 30.0 Anion Gap 7 BUN 16 Creatinine 0.65 L Estim Creat Clear Calc 119.34 Est GFR (MDRD) Af Amer 161 Est GFR (MDRD) Non-Af 133 BUN/Creatinine Ratio 24.6 H Glucose 126 H Lactic Acid 4.6 H* Calcium 8.8 Total Bilirubin 0.60 AST 44 H ALT 41 Alkaline Phosphatase 77 Total Creatine Kinase Total Protein 6.3 L Albumin 2.4 L Globulin 3.9 Albumin/Globulin Ratio 0.6 L Triglycerides Whole Bld Vitamin B1 RBC Folate Hemolysate RBC Folate Hematocrit Vancomycin Trough Acetylchol Rcpt Block Ab Acetylchol Rcpt Modu Ab Miscellaneous Cytology Cancelled Miscellaneous Test POC Glucose 01/26/19 01/27/19 01/27/19 22:29 05:45 05:45 WBC 13.8 H RBC 3.46 L Hgb 12.0 L Hct 36.6 L MCV 105.8 H MCH 34.7 H MCHC 32.8 RDW Std Deviation 55.0 H RDW Coeff of Mohsen 14.2 Plt Count 84 L MPV 11.2 Immature Gran % (Auto) 1.700 H Neut % (Auto) 84.4 H Lymph % (Auto) 6.4 L [place] % (Auto) 7.0 Eos % (Auto) 0.3 Baso % (Auto) 0.2 Absolute Neuts (auto) 11.6 H Absolute Lymphs (auto) 0.88 Nucleated RBC % 0 Differential Comment Diff Path Review Platelet Estimate ESR PT INR Specimen Type Sample Site pH Bicarbonate Actual POC Total CO2 Base Excess O2 Saturation O2 % ABG pCO2 ABG pO2 Adriusz Test Respiration Rate O2 Delivery Device Minute Volume Vent Mode Tidal Volume POC PEEP Blood Gas Notified Whom Blood Gas Notified Time Sodium 138 Potassium 5.0 Chloride 103 Carbon Dioxide 30.0 Anion Gap 5 BUN 17 Creatinine 0.49 L Estim Creat Clear Calc 158.31 Est GFR (MDRD) Af Amer 222 Est GFR (MDRD) Non-Af 183 BUN/Creatinine Ratio 34.6 H Glucose 181 H Lactic Acid Calcium 8.5 Total Bilirubin AST ALT Alkaline Phosphatase Total Creatine Kinase Total Protein Albumin Globulin Albumin/Globulin Ratio Triglycerides Whole Bld Vitamin B1 RBC Folate Hemolysate RBC Folate Hematocrit Vancomycin Trough Acetylchol Rcpt Block Ab Acetylchol Rcpt Modu Ab Miscellaneous Cytology Miscellaneous Test POC Glucose 166 H 01/27/19 01/27/19 01/27/19 07:20 21:45 22:14 WBC RBC Hgb Hct MCV MCH MCHC RDW Std Deviation RDW Coeff of Mohsen Plt Count MPV Immature Gran % (Auto) Neut % (Auto) Lymph % (Auto) [place] % (Auto) Eos % (Auto) Baso % (Auto) Absolute Neuts (auto) Absolute Lymphs (auto) Nucleated RBC % Differential Comment Diff Path Review Platelet Estimate ESR PT INR Specimen Type ART Sample Site R Brachial pH 7.32 L Bicarbonate Actual 30.6 H POC Total CO2 32 Base Excess 5 H O2 Saturation 87 L O2 % 80 ABG pCO2 58.8 H ABG pO2 59 L Dariusz Test Respiration Rate 14 O2 Delivery Device Vent Minute Volume 11.00 Vent Mode A-C Tidal Volume 450 POC PEEP 10 Blood Gas Notified Whom ICU MD Blood Gas Notified Time 719 Sodium Potassium Chloride Carbon Dioxide Anion Gap BUN Creatinine Estim Creat Clear Calc Est GFR (MDRD) Af Amer Est GFR (MDRD) Non-Af BUN/Creatinine Ratio Glucose Lactic Acid Calcium Total Bilirubin AST ALT Alkaline Phosphatase Total Creatine Kinase Total Protein Albumin Globulin Albumin/Globulin Ratio Triglycerides Whole Bld Vitamin B1 RBC Folate Hemolysate RBC Folate Hematocrit Vancomycin Trough 13.6 Acetylchol Rcpt Block Ab Acetylchol Rcpt Modu Ab Miscellaneous Cytology Miscellaneous Test POC Glucose 218 H 01/28/19 01/28/19 01/28/19 05:00 05:00 05:41 WBC 15.2 H RBC 3.32 L Hgb 11.4 L Hct 35.5 L MCV 106.9 H MCH 34.3 H MCHC 32.1 RDW Std Deviation 54.2 H RDW Coeff of Mohsen 13.7 Plt Count 89 L MPV 10.8 Immature Gran % (Auto) 1.800 H Neut % (Auto) 86.5 H Lymph % (Auto) 5.9 L [place] % (Auto) 5.6 Eos % (Auto) 0.1 Baso % (Auto) 0.1 Absolute Neuts (auto) 13.2 H Absolute Lymphs (auto) 0.90 Nucleated RBC % 0.1 Differential Comment Diff Path Review Platelet Estimate MOD DEC ESR PT INR Specimen Type Sample Site pH Bicarbonate Actual POC Total CO2 Base Excess O2 Saturation O2 % ABG pCO2 ABG pO2 Dariusz Test Respiration Rate O2 Delivery Device Minute Volume Vent Mode Tidal Volume POC PEEP Blood Gas Notified Whom Blood Gas Notified Time Sodium 136 Potassium 5.1 Chloride 101 Carbon Dioxide 29.0 Anion Gap 6 BUN 20 H Creatinine 0.53 L Estim Creat Clear Calc 146.37 Est GFR (MDRD) Af Amer 204 Est GFR (MDRD) Non-Af 169 BUN/Creatinine Ratio 38.0 H Glucose 207 H Lactic Acid Calcium 8.1 L Total Bilirubin AST ALT Alkaline Phosphatase Total Creatine Kinase Total Protein Albumin Globulin Albumin/Globulin Ratio Triglycerides Whole Bld Vitamin B1 RBC Folate Hemolysate RBC Folate Hematocrit Vancomycin Trough Acetylchol Rcpt Block Ab Acetylchol Rcpt Modu Ab Miscellaneous Cytology Miscellaneous Test POC Glucose 192 H Microbiology 01/26/19 12:55 Urine Catheter - [place] Urine Culture - Preliminary Culture exhibits no growth. 01/26/19 10:45 Sputum, Induced/[place] Gram Stain - Final 01/26/19 10:45 Sputum, Induced/[place] Respiratory Culture - Preliminary GNR Possible Haemophilus sp. 01/23/19 18:10 Blood Culture (Wb) - Right Forearm Blood Culture - Preliminary No growth in 48 hours. 01/23/19 18:00 Blood Culture (Wb) - Anticubital Left Blood Culture - Preliminary No growth in 48 hours. 01/24/19 06:02 Sputum, Expectorated/Coughed Gram Stain - Final 01/24/19 06:02 Sputum, Expectorated/Coughed Respiratory Culture - Final Clinical Impression(s) from Imaging Studies Brain CT 01/23/19 18:35 IMPRESSION: Chronic involutional changes of the brain. Electronically Signed: Ford Craig MD at 19:28 EST , Service support , Chest X-Ray 01/23/19 18:37 IMPRESSION: Calcified plaques of the thoracic aorta. Multiple old bilateral rib fractures. No acute cardiopulmonary disease process is seen. Electronically Signed: Ford Craig MD at 18:56 EST , Service support , Head MRA 01/24/19 12:20 IMPRESSION: Normal MRA of the head. No demonstrated aneurysm, dissection, stenosis, or occlusion. Electronically Signed: Renetta Diaz MD at 16:09 EST Tel , Service support , Neck MRA 01/24/19 12:20 IMPRESSION: Normal bilateral cervical carotid and vertebral arteries. Electronically Signed: Renetta Diaz MD at 16:15 EST Tel , Service support , Brain MRI 01/24/19 12:30 IMPRESSION: No acute infarct or intracranial hemorrhage. Mild involutional changes of the brain, as described above. Electronically Signed: Andrew Cloeman at 15:29 EST Tel , Service support , Chest X-Ray 01/25/19 09:45 IMPRESSION: Hazy infiltrates at the right lung base may represent atelectasis or pneumonia in the proper clinical setting. Electronically Signed: Andrew Coleman at 10:46 EST Tel , Service support , Chest X-Ray 01/26/19 09:27 IMPRESSION: Persistent hazy infiltrates at the right lung base may represent aspiration pneumonia. Small right pleural effusion. Electronically Signed: Andrew Coleman at 10:01 EST Tel , Service support , Chest X-Ray 01/26/19 10:05 IMPRESSION: ET tube as described above. Persistent hazy infiltrates at the right lung base may represent aspiration pneumonia. Electronically Signed: Andrew Coleman, at 11:31 EST Tel , Service support , KUB X-Ray 01/26/19 10:05 IMPRESSION: Enteric tube overlies the stomach. Electronically Signed: Andrew Coleman, at 11:35 EST Tel , Service support , KUB X-Ray 01/26/19 10:46 IMPRESSION: Enteric tube overlies the stomach. Electronically Signed: Andrew Coleman, at 11:41 EST Tel , Service support , Chest X-Ray 01/27/19 06:29 IMPRESSION: Bibasilar pulmonary opacities with mild decrease on the right and mild increase on the left. at 0744 Reported and signed by: Vidhya Tierney MD Electronically Signed: Vidhya Tierney MD at 7:44 EST Tel , Service support , Medical Necessity - Tobacco Use Smoking Status: Current every day smoker Tobacco Use: Cigarettes Assessment/Plan All Active Problems CVA (cerebral vascular accident) (Acute) Slurred speech (Acute) COPD exacerbation (Acute) RECOMMENDATIONS: 1. Obtain CTA chest to evaluate for recurrent PE. 2. Continue broad-spectrum antimicrobial coverage. 3. Continue Levophed with plans to wean to maintain a mean arterial pressure at or above 65 mmHg. 4. Continue to wean FiO2 and PEEP to maintain an oxygen saturation at or above 90%. 5. Continue bronchodilators and steroids. 6. Continue tube feeds as ordered. 7. Continue appropriate ICU prophylaxis. IMPRESSIONS: 1. Acute on chronic hypoxemic respiratory failure secondary to presumed aspiration pneumonia The patient was emergently transferred to the ICU on the morning of November 22, where he did require intubation due to impending respiratory failure following an aspiration event. The patient will remain on broad-spectrum antimicrobial coverage, pending infectious work-up. He has been adequately volume resuscitated at this time. Continue scheduled bronchodilators and IV steroids. Continue to wean FiO2 and PEEP to maintain oxygen saturations at or above 90%. A CTA chest will be obtained this morning as well, given the patient's history of venous thromboembolic disease. Tube feeds will be continued as ordered. 2. Septic shock secondary to presumed aspiration pneumonia The patient was adequately volume resuscitated, but subsequently developed hypotension, which may be the consequence of both his underlying infection and concurrent use of sedative medications. Regardless, he did require initiation of vasopressor support. Levophed will be weaned to maintain a mean arterial p ressure at or above 65 mmHg. We will plan to continue current supportive measures with broad-spectrum antimicrobials, pending finalized infectious work- up. 3. COPD with exacerbation Inciting etiology appears to be aspiration event. Continue current supportive measures as noted above along with bronchodilators and steroids. Wean oxygen as tolerated. 4. Slurred speech Neurology is currently following. Work-up has been unrevealing to date. 5. History of venous thrombi embolic disease/hypertension/hyperlipidemia/seizure disorder/continuous tobacco dependency Complicates care, management, recovery and prognosis. Hold home antihypertensives and diuretics for now. Continue antiepileptics. TIME: 45 minutes of critical care time, independent of procedures, was spent addressing the patient's acute on chronic hypoxemic respiratory failure, septic shock secondary to presumed aspiration pneumonia, COPD with exacerbation, review of all data and collaboration with the care team. ([id number]) Code Visit [id number]: [id number] Critical care first hour
--- NOTE | 2019-01-28 09:05 | PN_ITS ---
Patient Problems: Active and Suspected Problems CVA (cerebral vascular accident) (Acute) Slurred speech (Acute) Subjective: Patient seen and examined. He remains intubated and heavily sedated. According to his nurse, he had an episode of bradycardia this morning. Patient also had difficulty sustaining his oxygen saturation unless he was heavily sedated. His PEEP had to be increased to 14 overnight. Unable to do comprehensive review of systems as he is intubated and heavily sedated. Vitals/I&O's: Vital Signs Temp Pulse Resp BP Pulse Ox 97.8 F 67 16 126/65 H 94 01/28/19 07:00 01/28/19 07:00 01/28/19 07:00 01/28/19 07:00 01/28/19 07:00 Oxygen Flow Rate (L/min) 6 Oxygen Delivery Method Mechanical Ventilator Weight: 221 lb 9.033 oz Body Mass Index (BMI) 31.9 Intake and Output for Last 24 Hours 01/26/19 01/27/19 01/28/19 23:59 23:59 23:59 Intake Total 5126.01 / 5136.86 4179.38 / 4215.38 1478.70 / 1478.70 Output Total 1175 / 1175 680 / 680 250 / 250 Balance 3951.01 / 3961.86 3499.38 / 3535.38 1228.70 / 1228.70 General: - - intubated, sedated, RASS score is -4 HEENT: Atraumatic, PERRLA, EOMI, Normocephalic Oral: Moist Mucosa Neck: Supple, No JVD, Negative Carotid Bruits Lungs: - - decreased breath sounds bibasally, no wheezes or crackles. intubated. AC/VC, TV-500mls, [id number] Cardiovascular: Regular rate, Regular Rhythm, Normal S1, Normal S2, No murmurs Abdomen: Bowel Sounds Present, Soft, Non Tender, Non-Distended, No Hepato- splenomegaly Extremities: No clubbing, No cyanosis, No edema, Capillary Refill Less than 3 Seconds Skin: No rashes, No breakdown Musculoskeletal: No Tenderness to Palpation of Joints or Extremities Lymphatic: No Cervical, Supraclavicular, or Inguinal Adenopathy Neurological: - - intubated, heavily sedated, RASS score is -4 Microbiology Past 72 Hours 01/26/19 12:55 Urine Catheter - [place] Urine Culture - Preliminary Culture exhibits no growth. 01/26/19 10:45 Sputum, Induced/Lukens Gram Stain - Final 01/26/19 10:45 Sputum, Induced/Lukens Respiratory Culture - Preliminary GNR Possible Haemophilus sp. 01/23/19 18:10 Blood Culture (Wb) - Right Forearm Blood Culture - Preliminary No growth in 48 hours. 01/23/19 18:00 Blood Culture (Wb) - Anticubital Left Blood Culture - Preliminary No growth in 48 hours. 01/24/19 06:02 Sputum, Expectorated/Coughed Gram Stain - Final 01/24/19 06:02 Sputum, Expectorated/Coughed Respiratory Culture - Final Laboratory Results 01/27/19 21:45: Vancomycin Trough 13.6 01/27/19 22:14: POC Glucose 218 H 01/28/19 05:00: WBC 15.2 H, RBC 3.32 L, Hgb 11.4 L, Hct 35.5 L, MCV 106.9 H, MCH 34.3 H, MCHC 32.1, RDW Std Deviation 54.2 H, RDW Coeff of Mohsen 13.7, Plt Count 89 L, MPV 10.8, Immature Gran % (Auto) 1.800 H, Neut % (Auto) 86.5 H, Lymph % (Auto) 5.9 L, [place] % (Auto) 5.6, Eos % (Auto) 0.1, Baso % (Auto) 0.1, Absolute Neuts (auto) 13.2 H, Absolute Lymphs (auto) 0.90, Nucleated RBC % 0.1, Platelet Estimate MOD DEC 01/28/19 05:00: Sodium 136, Potassium 5.1, Chloride 101, Carbon Dioxide 29.0, Anion Gap 6, BUN 20 H, Creatinine 0.53 L, Estim Creat Clear Calc 146.37, Est GFR (MDRD) Af Amer 204, Est GFR (MDRD) Non-Af 169, BUN/Creatinine Ratio 38.0 H, Gluc ose 207 H, Calcium 8.1 L 01/28/19 05:41: POC Glucose 192 H Current Medications Acetaminophen (Tylenol) 650 mg PO Q6H PRN PRN PRN Reason: Non-cardiac pain (-12/14) Last Admin: 01/25/19 15:13 Dose: 650 mg Documented by: Acetaminophen (Tylenol Liquid) 650 mg GT Q6H PRN PRN PRN Reason: TEMP>101 Al Hydroxide/Mg Hydroxide (Mylanta Ii) 15 - 30 ml PO Q4H PRN PRN PRN Reason: INDIGESTION Albuterol Sulfate (Ventolin Aerosols) 2.5 mg INHALATION Q2H PRN PRN PRN Reason: dyspnea, wheezing Last Admin: 01/26/19 09:26 Dose: 2.5 mg Documented by: Albuterol/Ipratropium (Duoneb) 3 ml INHALATION Q4HWA.RT [facility] Last Admin: 01/28/19 06:43 Dose: 3 ml Documented by: Apixaban (Eliquis) 2.5 mg GT BID [facility] Last Admin: 01/27/19 21:08 Dose: 2.5 mg Documented by: Atorvastatin Calcium (Lipitor) 80 mg GT QHS [facility] Last Admin: 01/27/19 21:09 Dose: 80 mg Documented by: Chlorhexidine Gluconate () 15 ml PO BID [facility] Last Admin: 01/27/19 21:10 Dose: 15 ml Documented by: Chlorhexidine Gluconate () 1 each TOPICAL DAILY [facility] Last Admin: 01/28/19 02:18 Dose: 1 each Documented by: Dextrose (D50w Syringe) 0 gm IV X1 PRN; Protocol PRN Reason: Hypoglycemia Divalproex Sodium (Depakote Er) 500 mg PO 0700,1300 [facility] Last Admin: 01/26/19 13:30 Dose: Not Given Documented by: Divalproex Sodium (Depakote Er) 1,000 mg PO QHS [facility] Last Admin: 01/25/19 21:41 Dose: 1,000 mg Documented by: Famotidine (Pepcid) 20 mg GT BID [facility] Last Admin: 01/27/19 21:09 Dose: 20 mg Documented by: Gabapentin (Neurontin) 300 mg GT TID [facility] Last Admin: 01/28/19 05:34 Dose: 300 mg Documented by: Glucagon () 1 mg IM .X1 PRN PRN Reason: Hypoglycemia Guaifenesin (Robitussin) 10 ml GT Q6H PRN Sodium Chloride () 250 mls @ 15 mls/hr IV .[id number] PRN PRN Reason: Saline Flush Piperacillin Sod/Tazobactam (Sod 3.375 gm/ Sodium Chloride) 50 mls @ 12.5 mls/hr IV Q8 [facility] Last Admin: 01/28/19 05:34 Dose: 12.5 mls/hr Documented by: Vancomycin IV Pharmacy to Dose (1 ea/ Sodium Chloride) 500 mls @ 250 mls/hr IV X1 PRN; Protocol PRN Reason: Rx to Dose Enteral Nutritional Formula (Vital Af 1.2 Truong Liquid) 1,000 mls @ 60 mls/hr GT .[id number] [facility] Last Admin: 01/28/19 01:34 Dose: 60 mls/hr Documented by: Fentanyl () 100 mls @ 15 mls/hr IV UD [facility]; Protocol Last Titration: 01/28/19 07:00 Dose: 150 mcg/hr, 15 mls/hr Documented by: Propofol (Diprivan) 1,000 mg in 100 mls @ 16.254 mls/hr CONT INF .Q6H10M [facility]; Protocol Last Admin: 01/28/19 06:59 Dose: 30 mcg/kg/min, 16.3 mls/hr Documented by: Norepinephrine Bitartrate 8 mg (/ Sodium Chloride) 250 mls @ 9.375 mls/hr CONT INF .[id number] [facility]; Protocol Last Titration: 01/28/19 07:00 Dose: 2.5 mcg/min, 4.7 mls/hr Documented by: Vancomycin HCl 2,000 mg/ (Sodium Chloride) 540 mls @ 250 mls/hr IV Q12H [facility] Insulin Human Lispro (Humalog Kwikpen (Bkc)) 0 unit SC Q6 [facility]; Protocol Last Admin: 01/28/19 05:46 Dose: 1 u Documented by: Magnesium Hydroxide (Milk Of Magnesia) 30 ml GT DAILY PRN PRN Reason: Constipation Methylprednisolone (Solu-Medrol) 40 mg IV Q8 [facility] Last Admin: 01/28/19 05:34 Dose: 40 mg Documented by: Nicotine (Nicoderm Cq (Pbkc)) 21 mg TRANSDERM. DAILY [facility] Last Admin: 01/27/19 09:58 Dose: 21 mg Documented by: Nitroglycerin (Nitrostat) 0.4 mg SUBLINGUAL Q5M PRN PRN Reason: CARDIAC/CHEST PAIN Ondansetron HCl (Zofran) 4 mg IV Q8H PRN PRN PRN Reason: NAUSEA/VOMITING Polyethylene Glycol (Miralax) 17 gm GT BID [facility] Last Admin: 01/27/19 21:09 Dose: 17 gm Documented by: Senna/Docusate Sodium (Senokot-S, Lila-Colace) 2 tablet GT BID [facility] Last Admin: 01/27/19 21:10 Dose: 2 tablet Documented by: Sodium Chloride () 10 - 40 ml IV UD PRN PRN Reason: SALINE FLUSH Last Admin: 01/26/19 13:37 Dose: 10 ml Documented by: Throat Lozenges (Cepacol Sore Throat Lozenge) 1 lozenge MUCOUS MEM Q2H PRN PRN PRN Reason: COUGH Valproic Acid (Depakene) 500 mg GT 4X/DAY [facility] Last Admin: 01/27/19 21:10 Dose: 500 mg Documented by: STROKE Vital Signs/Narrative: Vital Signs Temp Pulse Resp BP Pulse Ox 01/28/19 07:00 97.8 F 67 16 126/65 H 94 01/28/19 06:43 70 16 94 01/28/19 06:00 97.7 F L 68 16 114/60 91 01/28/19 05:45 67 16 95 Medical Necessity - Tobacco Use Smoking Status: Current every day smoker Tobacco Use: Cigarettes Assessment/Plan All Active Problems CVA (cerebral vascular accident) (Acute) Slurred speech (Acute) COPD exacerbation (Acute) 1. Acute hypoxic respiratory failure due to aspiration pneumonia * remains intubated and sedated * PEEP had to be increased from [id number] to [id number] * patient having difficulty maintaining adequate oxygenation unless he is deeply sedated * on IV zosyn and vancomycin * blood cultures: no growth after 48 hours; repeat blood cultures pending * sputum culture growing GNR possibly Hemophilus sp * critical care on board * to get CTA of chest to rule out a PE * 2. Septic shock due to aspiration pneumonia * still remains on low dose levophed * critical care on board * on IV vancomycin and zosyn * 3. Aspiration pneumonia: as under 1 and 2 4. Slurred speech and double vision * stroke ruled out per CT and MRI * etiology still unclear * neurology on board * PT/OT and speech therapy on board * will need re-evaluation after he is extubated * 5. Hypertension:BP meds on hold o/a of septic shock 6. History of DVT and PE: * on eliquis * Patient couldnt give us much information about when he had the PE and DVT, and how many he had had. * He just said his PCP said he wasnt to go off of anticoagulation. * 7. Seizure disorder: on depakote DVT prophylaxis: on eliquis Code Visit Inpatient E&M: 84378 Subs Hosp L3
[2019-01-28] MEDS: Chlorhexidine 15 ML PO ×2 (10:14→21:26)
[2019-01-28] MEDS: Polyethylene Glycol 3350 17 GM PACKET GT ×2 (10:15→21:24)
[2019-01-28] MEDS: Famotidine 20 MG Tablet GT ×2 (10:17→21:27)
[2019-01-28] MEDS: Senna/Docusate Sodium 1 Tablet 2 TABLET GT ×2 (10:18→21:25)
[2019-01-28] MEDS: HEPARIN/D5w 25,000 UNITS 25,000 UNITS/250 ML IV.SOLN. 14 UNITS IV (10:19)
[2019-01-28 10:45] LABS: International Normalized Ratio 1.1; Partial Thromboplast Time 32.8 Seconds (24.1-36.2); Prothrombin Time (Protime)PT. 13.9 SECONDS (11.7-14.9)
[2019-01-28 13:20] LABS: Bedside Glucose 198 mg/dL (70-110)
[2019-01-28] MEDS: TITRATION PARAMETER CHANGE 1 EACH IV ×2 (13:41→16:04)
[2019-01-28] MEDS: Propofol 10MG/Ml 1,000 MG/100 ML Bottle 13.5 MG CONT INF (13:42)
[2019-01-28] MEDS: 0.9% Saline Lock 10 ML Syringe IV (13:51)
--- NOTE | 2019-01-28 15:45 | NURSING ---
ed re chronic illness deferred till acute illness resolving
[2019-01-28 16:29] LABS: Partial Thromboplast Time 89.2 Seconds (24.1-36.2)
[2019-01-28 18:36] LABS: Bedside Glucose 199 mg/dL (70-110)
[2019-01-28] MEDS: Propofol 10MG/Ml 1,000 MG/100 ML Bottle 18.1 MG CONT INF (19:17)
[2019-01-28] MEDS: Atorvastatin Calcium 80 MG Tablet GT (21:25)
[2019-01-29] VITALS (45 sets, daily range): BP systolic 99–126; BP diastolic 54–82; PULSE 67–90; RESP 12–28; TEMP 37.3–37.7; O2SAT 88–97; BMI 31.9
[2019-01-29] MEDS: Insulin Lispro 100 UNIT/ML INSULN.PEN SC ×4 (00:27→17:30)
[2019-01-29] MEDS: Propofol 10MG/Ml 1,000 MG/100 ML Bottle 18.1 MG CONT INF ×2 (00:27→05:00)
[2019-01-29 00:35] LABS: Bedside Glucose 212 mg/dL (70-110)
[2019-01-29 00:38] LABS: Partial Thromboplast Time 104.8 Seconds (24.1-36.2)
[2019-01-29] MEDS: fentaNYL drip 100 ML 15 MCG IV (03:06)
[2019-01-29] MEDS: HEPARIN/D5w 25,000 UNITS 25,000 UNITS/250 ML IV.SOLN. 10 UNITS IV (03:07)
[2019-01-29] MEDS: Ipratropium/Albuterol Sulfate 3 ML AMPUL.NEB INHALATION ×5 (03:31→19:09)
[2019-01-29] MEDS: Gabapentin 300 MG Capsule GT ×3 (05:03→20:27)
[2019-01-29 05:41] LABS: Bedside Glucose 195 mg/dL (70-110)
[2019-01-29 06:45] LABS: Allen Test POS; Base Excess 7 mmol/L (-2 to +2); Bicarbonate 33.5 mmol/L (22-26); Blood Gas Specimen Type ART; FI02 100; Mode A-C; O2 Delivery Device Vent; PEEP 14; PO2 106 mmHG (75-100); RR 16; SITE L Radial; SO2 97 % (95-99); Time Given 635; Total Carbon Dioxide 35 mmol/L; Vt 500; pCO2 66.3 mmHg (35-45); pH 7.31 (7.35-7.45)
[2019-01-29 06:58] LABS: Absolute Lymphocyte Count 0.75 X10^3/uL (0.83-4.51); Absolute Neutrophil Count 10.1 X10^3/uL (2.0-7.7); Basophil# 0.04 X10^3/uL; Basophil% 0.3 % (0-1); Eosinophil# 0.05 X10^3/uL; Eosinophils% 0.4 % (0-5); Hematocrit 34.2 % (40-54); Hemoglobin 11.2 g/dL (13.0-16.5); Lymphocyte # 0.75 X10^3/ul (4.0); Lymphocyte % 6.2 % (19-41); Mean Corp Hgb Conc 32.7 g/dL (32-36); Mean Corpuscular Hgb 34.8 pg (27.0-32.0); Mean Corpuscular Volume 106.2 fL (80-94); Mean Platelet Vol. 12.2 fl (6.2-12.0); Monocyte# 0.66 X10^3/uL; Monocyte% 5.4 % (0-10); NRBC Flagged by Analyzer 0.7 % (0-5); Neutrophil # 10.13 X10^3/uL (2.7-7.7); Neutrophil % 83.4 % (47-70); POSITIVE COUNT YES; Platelet Count 81 K/mm3 (150-450); RBC Distribution Width CV 13.8 % (11.6-14.6); RBC Distribution Width SD 53.1 fl (35.1-43.9); Red Blood Count 3.22 M/mm3 (4.6-6.2); White Blood Count 12.2 K/mm3 (4.4-11.0)
[2019-01-29] MEDS: guaiFENesin 10 ML UDC (200MG/10ML) GT ×3 (06:58→17:31)
[2019-01-29 07:51] LABS: Partial Thromboplast Time 55.9 Seconds (24.1-36.2)
[2019-01-29 08:00] LABS: Allen Test POS; Base Excess 7 mmol/L (-2 to +2); Bicarbonate 33.7 mmol/L (22-26); Blood Gas Specimen Type ART; FI02 100; Mode APRV; O2 Delivery Device Vent; PO2 92 mmHG (75-100); SITE L Radial; SO2 96 % (95-99); T LOW 0.5; Time Given 748; Total Carbon Dioxide 36 mmol/L; pCO2 67.3 mmHg (35-45); pH 7.31 (7.35-7.45)
[2019-01-29 08:13] LABS: Anion Gap 4 (5-15); BUN 20 mg/dL (7-18); BUN/Creat Ratio 40.7 RATIO (10-20); Calcium,Total 8.5 mg/dL (8.5-10.1); Chloride 101 mmol/L (98-107); Creatinine, Serum 0.49 mg/dL (0.70-1.30); EST Glomerular Filtration Rate 183 mL/min (>60); Est Glom Filt Rate - Afr Amer 221 mL/min (>60); Estimated Creatinine Clearance 158.31 ml/min; Glucose 191 mg/dL (74-106); Sodium Level 136 mmol/L (136-145)
[2019-01-29] MEDS: 0.9% Saline Lock 10 ML Syringe IV ×4 (08:18→16:02)
--- NOTE | 2019-01-29 08:28 | PCM.PN.INT ---
Subjective: Intubated and sedated. Patient did come off of pressor agents at approximately 1:15 AM. Patient continues to be positive fluid balance over the course of the hospitalization. Patient had significant difficulty with oxygenation overnight requiring 100% FiO2 on my arrival this morning. Patient has remained on a heparin drip. General: - - Intubated and sedated. RASS -3. Fair vent synchrony. Anasarca. HEENT: Atraumatic, PERRLA, EOMI, Normocephalic, - - Slight scleral injection without icterus Oral: Moist Mucosa, No Gingival or Mucosal Lesions/ Ulcerations Neck: Supple, No Nodes, Trachea Midline, JVD, Right Lungs: Diminished, Rhonchi - Bilateral, Wheezes Cardiovascular: Regular rate, Regular Rhythm, Normal S1, Normal S2, No murmurs, No rub noted, No Gallop Abdomen: Bowel Sounds Present, Soft, Non Tender, Distended, Obese, - - No grimacing with palpation Extremities: No clubbing, No cyanosis, Edema - Anasarca Skin: No rashes, No breakdown Musculoskeletal: No Tenderness to Palpation of Joints or Extremities Lymphatic: No Cervical, Supraclavicular, or Inguinal Adenopathy Neurological: - - Difficult exam. Spinal reflexes are intact. Some spontaneous movement of the hands noted. Psych/Mental Status: Flat Affect Vital Signs Temp Pulse Resp BP Pulse Ox 37.4 C H 81 14 112/60 96 01/29/19 07:00 01/29/19 07:00 01/29/19 07:00 01/29/19 07:00 01/29/19 07:00 Oxygen Flow Rate (L/min) 6 Oxygen Delivery Method Mechanical Ventilator Weight: 104.9 kg Body Mass Index (BMI) 31.9 Intake and Output for Last 24 Hours 01/27/19 01/28/19 01/29/19 23:59 23:59 23:59 Intake Total 4179.38 / 4215.38 4491.51 / 5730.51 1644.03 / 1644.03 Output Total 680 / 680 1000 / 1300 500 / 500 Balance 3499.38 / 3535.38 3491.51 / 4430.51 1144.03 / 1144.03 Labs (Last 48 Hours) 01/27/19 01/27/19 01/28/19 21:45 22:14 05:00 WBC 15.2 H RBC 3.32 L Hgb 11.4 L Hct 35.5 L MCV 106.9 H MCH 34.3 H MCHC 32.1 RDW Std Deviation 54.2 H RDW Coeff of Mohsen 13.7 Plt Count 89 L MPV 10.8 Immature Gran % (Auto) 1.800 H Neut % (Auto) 86.5 H Lymph % (Auto) 5.9 L [place] % (Auto) 5.6 Eos % (Auto) 0.1 Baso % (Auto) 0.1 Absolute Neuts (auto) 13.2 H Absolute Lymphs (auto) 0.90 Nucleated RBC % 0.1 Platelet Estimate MOD DEC PT INR APTT Specimen Type Sample Site pH Bicarbonate Actual POC Total CO2 Base Excess O2 Saturation O2 % ABG pCO2 ABG pO2 Dariusz Test Respiration Rate O2 Delivery Device Vent Mode Tidal Volume POC PEEP Pressure High Pressure Low Time High Time Low Blood Gas Notified Whom Blood Gas Notified Time Sodium Potassium Chloride Carbon Dioxide Anion Gap BUN Creatinine Estim Creat Clear Calc Est GFR (MDRD) Af Amer Est GFR (MDRD) Non-Af BUN/Creatinine Ratio Glucose Calcium Troponin I Vancomycin Trough 13.6 POC Glucose 218 H 01/28/19 01/28/19 01/28/19 05:00 05:41 10:00 WBC RBC Hgb Hct MCV MCH MCHC RDW Std Deviation RDW Coeff of Mohsen Plt Count MPV Immature Gran % (Auto) Neut % (Auto) Lymph % (Auto) [place] % (Auto) Eos % (Auto) Baso % (Auto) Absolute Neuts (auto) Absolute Lymphs (auto) Nucleated RBC % Platelet Estimate PT 13.9 INR 1.1 APTT 32.8 Specimen Type Sample Site pH Bicarbonate Actual POC Total CO2 Base Excess O2 Saturation O2 % ABG pCO2 ABG pO2 Dariusz Test Respiration Rate O2 Delivery Device Vent Mode Tidal Volume POC PEEP Pressure High Pressure Low Time High Time Low Blood Gas Notified Whom Blood Gas Notified Time Sodium 136 Potassium 5.1 Chloride 101 Carbon Dioxide 29.0 Anion Gap 6 BUN 20 H Creatinine 0.53 L Estim Creat Clear Calc 146.37 Est GFR (MDRD) Af Amer 204 Est GFR (MDRD) Non-Af 169 BUN/Creatinine Ratio 38.0 H Glucose 207 H Calcium 8.1 L Troponin I Vancomycin Trough POC Glucose 192 H 01/28/19 01/28/19 01/28/19 11:10 11:42 16:00 WBC RBC Hgb Hct MCV MCH MCHC RDW Std Deviation RDW Coeff of Mohsen Plt Count MPV Immature Gran % (Auto) Neut % (Auto) Lymph % (Auto) [place] % (Auto) Eos % (Auto) Baso % (Auto) Absolute Neuts (auto) Absolute Lymphs (auto) Nucleated RBC % Platelet Estimate PT INR APTT 89.2 H Specimen Type Sample Site pH Bicarbonate Actual POC Total CO2 Base Excess O2 Saturation O2 % ABG pCO2 ABG pO2 Dariusz Test Respiration Rate O2 Delivery Device Vent Mode Tidal Volume POC PEEP Pressure High Pressure Low Time High Time Low Blood Gas Notified Whom Blood Gas Notified Time Sodium Potassium Chloride Carbon Dioxide Anion Gap BUN Creatinine Estim Creat Clear Calc Est GFR (MDRD) Af Amer Est GFR (MDRD) Non-Af BUN/Creatinine Ratio Glucose Calcium Troponin I < 0.015 Vancomycin Trough POC Glucose 198 H 01/28/19 01/28/19 01/28/19 18:33 23:00 23:45 WBC RBC Hgb Hct MCV MCH MCHC RDW Std Deviation RDW Coeff of Mohsen Plt Count MPV Immature Gran % (Auto) Neut % (Auto) Lymph % (Auto) [place] % (Auto) Eos % (Auto) Baso % (Auto) Absolute Neuts (auto) Absolute Lymphs (auto) Nucleated RBC % Platelet Estimate PT INR APTT Cancelled 104.8 H* Specimen Type Sample Site pH Bicarbonate Actual POC Total CO2 Base Excess O2 Saturation O2 % ABG pCO2 ABG pO2 Dariusz Test Respiration Rate O2 Delivery Device Vent Mode Tidal Volume POC PEEP Pressure High Pressure Low Time High Time Low Blood Gas Notified Whom Blood Gas Notified Time Sodium Potassium Chloride Carbon Dioxide Anion Gap BUN Creatinine Estim Creat Clear Calc Est GFR (MDRD) Af Amer Est GFR (MDRD) Non-Af BUN/Creatinine Ratio Glucose Calcium Troponin I Vancomycin Trough POC Glucose 199 H 01/29/19 01/29/19 01/29/19 00:19 05:02 06:39 WBC RBC Hgb Hct MCV MCH MCHC RDW Std Deviation RDW Coeff of Mohsen Plt Count MPV Immature Gran % (Auto) Neut % (Auto) Lymph % (Auto) [place] % (Auto) Eos % (Auto) Baso % (Auto) Absolute Neuts (auto) Absolute Lymphs (auto) Nucleated RBC % Platelet Estimate PT INR APTT Specimen Type ART Sample Site L Radial pH 7.31 L Bicarbonate Actual 33.5 H POC Total CO2 35 Base Excess 7 H O2 Saturation 97 O2 % 100 ABG pCO2 66.3 H ABG pO2 106 H Dariusz Test POS Respiration Rate 16 O2 Delivery Device Vent Vent Mode A-C Tidal Volume 500 POC PEEP 14 Pressure High Pressure Low Time High Time Low Blood Gas Notified Whom ICU MD Blood Gas Notified Time 635 Sodium Potassium Chloride Carbon Dioxide Anion Gap BUN Creatinine Estim Creat Clear Calc Est GFR (MDRD) Af Amer Est GFR (MDRD) Non-Af BUN/Creatinine Ratio Glucose Calcium Troponin I Vancomycin Trough POC Glucose 212 H 195 H 01/29/19 01/29/19 01/29/19 06:40 06:40 06:40 WBC 12.2 H RBC 3.22 L Hgb 11.2 L Hct 34.2 L MCV 106.2 H MCH 34.8 H MCHC 32.7 RDW Std Deviation 53.1 H RDW Coeff of Mohsen 13.8 Plt Count 81 L MPV 12.2 H Immature Gran % (Auto) 4.300 H Neut % (Auto) 83.4 H Lymph % (Auto) 6.2 L [place] % (Auto) 5.4 Eos % (Auto) 0.4 Baso % (Auto) 0.3 Absolute Neuts (auto) 10.1 H Absolute Lymphs (auto) 0.75 L Nucleated RBC % 0.7 Platelet Estimate PT INR APTT Cancelled Specimen Type Sample Site pH Bicarbonate Actual POC Total CO2 Base Excess O2 Saturation O2 % ABG pCO2 ABG pO2 Dariusz Test Respiration Rate O2 Delivery Device Vent Mode Tidal Volume POC PEEP Pressure High Pressure Low Time High Time Low Blood Gas Notified Whom Blood Gas Notified Time Sodium Cancelled Potassium Cancelled Chloride Cancelled Carbon Dioxide Cancelled Anion Gap Cancelled BUN Cancelled Creatinine Cancelled Estim Creat Clear Calc Cancelled Est GFR (MDRD) Af Amer Cancelled Est GFR (MDRD) Non-Af Cancelled BUN/Creatinine Ratio Cancelled Glucose Cancelled Calcium Cancelled Troponin I Vancomycin Trough POC Glucose 01/29/19 01/29/19 01/29/19 07:30 07:30 07:54 WBC RBC Hgb Hct MCV MCH MCHC RDW Std Deviation RDW Coeff of Mohsen Plt Count MPV Immature Gran % (Auto) Neut % (Auto) Lymph % (Auto) [place] % (Auto) Eos % (Auto) Baso % (Auto) Absolute Neuts (auto) Absolute Lymphs (auto) Nucleated RBC % Platelet Estimate PT INR APTT 55.9 H Specimen Type ART Sample Site L Radial pH 7.31 L Bicarbonate Actual 33.7 H POC Total CO2 36 Base Excess 7 H O2 Saturation 96 O2 % 100 ABG pCO2 67.3 H* ABG pO2 92 Dariusz Test POS Respiration Rate O2 Delivery Device Vent Vent Mode APRV Tidal Volume POC PEEP Pressure High 20.0 Pressure Low 0.0 Time High 4.0 Time Low 0.5 Blood Gas Notified Whom ICU Blood Gas Notified Time 748 Sodium 136 Potassium 6.0 H* Chloride 101 Carbon Dioxide 31.0 Anion Gap 4 L BUN 20 H Creatinine 0.49 L Estim Creat Clear Calc 158.31 Est GFR (MDRD) Af Amer 221 Est GFR (MDRD) Non-Af 183 BUN/Creatinine Ratio 40.7 H Glucose 191 H Calcium 8.5 Troponin I Vancomycin Trough POC Glucose Microbiology 01/26/19 10:45 Sputum, Induced/Lukens Gram Stain - Final 01/26/19 10:45 Sputum, Induced/Lukens Respiratory Culture - Preliminary Haemophilus influenzae Streptococcus pneumoniae 01/23/19 18:00 Blood Culture (Wb) - Anticubital Left Blood Culture - Final No growth in 5 days. 01/23/19 18:10 Blood Culture (Wb) - Right Forearm Blood Culture - Final No growth in 5 days. 01/26/19 12:55 Urine Catheter - [place] Urine Culture - Final Culture exhibits no growth. Clinical Impression(s) from Imaging Studies Chest CTA 01/28/19 00:00 IMPRESSION: 1. Small right middle lobe segmental pulmonary emboli. 2. Bilateral lower lobe airspace consolidations and possible atelectasis suggesting pneumonia. 3. 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 4. No CTA demonstrated arterial dissection. N.B. : The above information has been verbally conveyed by Maddie Jeffers MD to RANDY Galvez, on 01/28/2019 09:50:52 (ET). Electronically Signed: Maddie Jeffers MD at 9:55 EST , Service support , ADDENDUM: 01/28/19 1002 IMPRESSION: 1. Small right middle lobe segmental pulmonary emboli. 2. Bilateral lower lobe airspace consolidations and possible atelectasis suggesting pneumonia. 3. 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 4. No CTA demonstrated arterial dissection. N.B. : The above information has been verbally conveyed by Maddie Jeffers MD to RANDY Galvez, on 01/28/2019 09:50:52 (ET). Electronically Signed: Maddie Jeffers MD at 9:55 EST , Service support , Medical Necessity - Tobacco Use Smoking Status: Current every day smoker Tobacco Use: Cigarettes Assessment/Plan All Active Problems CVA (cerebral vascular accident) (Acute) Slurred speech (Acute) COPD exacerbation (Acute) RECOMMENDATIONS: 1. Continue APRV ventilation 2. Continue broad-spectrum antimicrobial coverage. 3. Attempt diuretic therapy 4. Continue to wean FiO2 and PEEP to maintain an oxygen saturation at or above 90%. 5. Continue bronchodilators and steroids. 6. Continue tube feeds as ordered. 7. Continue appropriate ICU prophylaxis. IMPRESSIONS: 1. Acute on chronic hypoxemic respiratory failure secondary to presumed aspiration pneumonia The patient was emergently transferred to the ICU on the morning of January 26, where he did require intubation due to impending respiratory failure following an aspiration event. Patient now with multiple etiologies of hypoxic respiratory failure including COPD, H. influenzae and small pulmonary emboli. Patient is on anticoagulation. Repeat ABG shows adequate ventilation on APRV. We will continue to try to wean oxygen as tolerated through the day. Patient with significant anasarca. Will attempt to diurese now the patient is off of pressors 2. Septic shock secondary to presumed aspiration pneumonia Been able to come off of pressor therapy. We will continue with broad-spectrum antibiotics pending sensitivities for H. influenzae. Will attempt to diurese patient today. 3. COPD with exacerbation Inciting etiology appears to be aspiration event and possible pulmonary emboli. Continue current supportive measures as noted above along with bronchodilators and steroids. Wean oxygen as tolerated. 4. Slurred speech Neurology is currently following. Work-up has been unrevealing to date. 5. History of venous thrombi embolic disease/hypertension/hyperlipidemia/seizure disorder/continuous tobacco dependency Complicates care, management, recovery and prognosis. Hold home antihypertensives and diuretics for now. Continue antiepileptics. 6. Hyperkalemia Patient reportedly did not have a hemolyzed sample, but has isolated hyperkalemia. Renal function appears to be intact at this time. We will hold off on giving acute intervention. Patient will be given Lasix therapy, which should decrease potassium. Significant acidosis was not noted on ABG. Addendum 1430: Patient did okay through the day. Patient did respond to diuretic therapy appropriately. Patient has been able to be kept on APRV and tolerating well. Have been able to decrease to 80% FiO2. No pressors have been required. We will continue to attempt to wean FiO2. TIME: 85 minutes of critical care time, independent of procedures, was spent addressing the patient's acute on chronic hypoxemic respiratory failure, septic shock secondary to presumed aspiration pneumonia, COPD with exacerbation, review of all data and collaboration with the care team. (6 AM to 8:30 AM, 12 PM to 2:30 PM) Code Visit Procedures: 34790 Critial Care Addl 30 Min 9xxxx: [id number] Critical care first hour
--- NOTE | 2019-01-29 08:38 | CPS ---
ALDAIR critical CO2 read to at 0800 on 01/29/2019 Mckayla VARGAS
--- NOTE | 2019-01-29 08:50 | PCM.PN.HOSP ---
Patient Problems: Active and Suspected Problems CVA (cerebral vascular accident) (Acute) Slurred speech (Acute) Subjective: Intubated and sedated, had his vent settings changed this am since he was on a 100% FiO2 and his Pao2 was barely over 100 Vitals/I&O's: Vital Signs Temp Pulse Resp BP Pulse Ox 99.3 F H 81 14 112/60 96 01/29/19 07:00 01/29/19 07:00 01/29/19 07:00 01/29/19 07:00 01/29/19 07:00 Oxygen Flow Rate (L/min) 6 Oxygen Delivery Method Mechanical Ventilator Weight: 231 lb 4.238 oz Body Mass Index (BMI) 31.9 Intake and Output for Last 24 Hours 01/27/19 01/28/19 01/29/19 23:59 23:59 23:59 Intake Total 4179.38 / 4215.38 4491.51 / 5730.51 1744.03 / 1744.03 Output Total 680 / 680 1000 / 1300 500 / 500 Balance 3499.38 / 3535.38 3491.51 / 4430.51 1244.03 / 1244.03 General: - - Intubated and sedated HEENT: Atraumatic, PERRLA, Normocephalic, - - Intubated Oral: Moist Mucosa Neck: Supple, No JVD Lungs: Diminished, Rhonchi, Wheezes Cardiovascular: Regular rate, Regular Rhythm, Normal S1, Normal S2, No murmurs Abdomen: Soft, Non-Distended, No Hepato-splenomegaly Extremities: Capillary Refill Less than 3 Seconds, Edema Skin: No rashes, No breakdown Neurological: - - Intubated and sedated Psych/Mental Status: - - Intubated and sedated Microbiology Past 72 Hours 01/26/19 10:45 Sputum, Induced/Lukens Gram Stain - Final 01/26/19 10:45 Sputum, Induced/Lukens Respiratory Culture - Preliminary Haemophilus influenzae Streptococcus pneumoniae 01/23/19 18:00 Blood Culture (Wb) - Anticubital Left Blood Culture - Final No growth in 5 days. 01/23/19 18:10 Blood Culture (Wb) - Right Forearm Blood Culture - Final No growth in 5 days. 01/26/19 12:55 Urine Catheter - [place] Urine Culture - Final Culture exhibits no growth. 01/24/19 06:02 Sputum, Expectorated/Coughed Gram Stain - Final 01/24/19 06:02 Sputum, Expectorated/Coughed Respiratory Culture - Final Laboratory Results 01/28/19 10:00: PT 13.9, INR 1.1, APTT 32.8 01/28/19 11:10: Troponin I < 0.015 01/28/19 11:42: POC Glucose 198 H 01/28/19 16:00: APTT 89.2 H 01/28/19 18:33: POC Glucose 199 H 01/28/19 23:00: APTT Cancelled 01/28/19 23:45: APTT 104.8 H* 01/29/19 00:19: POC Glucose 212 H 01/29/19 05:02: POC Glucose 195 H 01/29/19 06:39: Specimen Type ART, Sample Site L Radial, pH 7.31 L, Bicarbonate Actual 33.5 H, POC Total CO2 35, Base Excess 7 H, O2 Saturation 97, O2 % 100, ABG pCO2 66.3 H, ABG pO2 106 H, Dariusz Test POS, Respiration Rate 16, O2 Delivery Device Vent, Vent Mode A-C, Tidal Volume 500, POC PEEP 14, Blood Gas Notified Whom ICU MD, Blood Gas Notified Time 635 01/29/19 06:40: WBC 12.2 H, RBC 3.22 L, Hgb 11.2 L, Hct 34.2 L, MCV 106.2 H, MCH 34.8 H, MCHC 32.7, RDW Std Deviation 53.1 H, RDW Coeff of Mohsen 13.8, Plt Count 81 L, MPV 12.2 H, Immature Gran % (Auto) 4.300 H, Neut % (Auto) 83.4 H, Lymph % (Auto) 6.2 L, [place] % (Auto) 5.4, Eos % (Auto) 0.4, Baso % (Auto) 0.3, Absolute Neuts (auto) 10.1 H, Absolute Lymphs (auto) 0.75 L, Nucleated RBC % 0.7 01/29/19 06:40: Sodium Cancelled, Potassium Cancelled, Chloride Cancelled, Carbon Dioxide Cancelled, Anion Gap Cancelled, BUN Cancelled, Creatinine Cancelled, Estim Creat Clear Calc Cancelled, Est GFR (MDRD) Af Amer Cancelled, Est GFR (MDRD) Non-Af Cancelled, BUN/Creatinine Ratio Cancelled, Glucose Cancelled, Calcium Cancelled 01/29/19 06:40: APTT Cancelled 01/29/19 07:30: APTT 55.9 H 01/29/19 07:30: Sodium 136, Potassium 6.0 H*, Chloride 101, Carbon Dioxide 31.0, Anion Gap 4 L, BUN 20 H, Creatinine 0.49 L, Estim Creat Clear Calc 158.31, Est GFR (MDRD) Af Amer 221, Est GFR (MDRD) Non-Af 183, BUN/Creatinine Ratio 40.7 H, Glucose 191 H, Calcium 8.5 01/29/19 07:54: Specimen Type ART, Sample Site L Radial, pH 7.31 L, Bicarbonate Actual 33.7 H, POC Total CO2 36, Base Excess 7 H, O2 Saturation 96, O2 % 100, ABG pCO2 67.3 H*, ABG pO2 92, Dariusz Test POS, O2 Delivery Device Vent, Vent Mode APRV, Pressure High 20.0, Pressure Low 0.0, Time High 4.0, Time Low 0.5, Blood Gas Notified Whom ICU MD, Blood Gas Notified Time 748 Current Medications Acetaminophen (Tylenol) 650 mg PO Q6H PRN PRN PRN Reason: Non-cardiac pain (-12/14) Last Admin: 01/25/19 15:13 Dose: 650 mg Documented by: Acetaminophen (Tylenol Liquid) 650 mg GT Q6H PRN PRN PRN Reason: TEMP>101 Al Hydroxide/Mg Hydroxide (Mylanta Ii) 15 - 30 ml PO Q4H PRN PRN PRN Reason: INDIGESTION Albuterol Sulfate (Ventolin Aerosols) 2.5 mg INHALATION Q2H PRN PRN PRN Reason: dyspnea, wheezing Last Admin: 01/26/19 09:26 Dose: 2.5 mg Documented by: Albuterol/Ipratropium (Duoneb) 3 ml INHALATION Q4HWA.RT [facility] Last Admin: 01/29/19 06:51 Dose: 3 ml Documented by: Atorvastatin Calcium (Lipitor) 80 mg GT QHS [facility] Last Admin: 01/28/19 21:25 Dose: 80 mg Documented by: Chlorhexidine Gluconate () 15 ml PO BID [facility] Last Admin: 01/28/19 21:26 Dose: 15 ml Documented by: Chlorhexidine Gluconate () 1 each TOPICAL DAILY [facility] Last Admin: 01/28/19 02:18 Dose: 1 each Documented by: Dextrose (D50w Syringe) 0 gm IV X1 PRN; Protocol PRN Reason: Hypoglycemia Divalproex Sodium (Depakote Er) 500 mg PO 0700,1300 [facility] Last Admin: 01/26/19 13:30 Dose: Not Given Documented by: Divalproex Sodium (Depakote Er) 1,000 mg PO QHS [facility] Last Admin: 01/25/19 21:41 Dose: 1,000 mg Documented by: Famotidine (Pepcid) 20 mg GT BID [facility] Last Admin: 01/28/19 21:27 Dose: 20 mg Documented by: Gabapentin (Neurontin) 300 mg GT TID [facility] Last Admin: 01/29/19 05:03 Dose: 300 mg Documented by: Glucagon () 1 mg IM .X1 PRN PRN Reason: Hypoglycemia Guaifenesin (Robitussin) 10 ml GT Q6H PRN Guaifenesin (Robitussin) 10 ml GT Q6H [facility] Last Admin: 01/29/19 06:58 Dose: 10 ml Documented by: Heparin Sodium (Porcine) (Heparin Na) 0 unit IV UD PRN; Protocol Sodium Chloride () 250 mls @ 15 mls/hr IV .[id number] PRN PRN Reason: Saline Flush Piperacillin Sod/Tazobactam (Sod 3.375 gm/ Sodium Chloride) 50 mls @ 12.5 mls/hr IV Q8 [facility] Last Admin: 01/29/19 05:08 Dose: 12.5 mls/hr Documented by: Vancomycin IV Pharmacy to Dose (1 ea/ Sodium Chloride) 500 mls @ 250 mls/hr IV X1 PRN; Protocol PRN Reason: Rx to Dose Enteral Nutritional Formula (Vital Af 1.2 Truong Liquid) 1,000 mls @ 60 mls/hr GT .[id number] [facility] Last Admin: 01/28/19 21:16 Dose: Not Given Documented by: Fentanyl () 100 mls @ 15 mls/hr IV UD [facility]; Protocol Last Titration: 01/29/19 07:15 Dose: 75 mcg/hr, 7.5 mls/hr Documented by: Propofol (Diprivan) 1,000 mg in 100 mls @ 18.882 mls/hr CONT INF .Q5H18M [facility]; Protocol Last Titration: 01/29/19 07:15 Dose: 24.88 mcg/kg/min, 15 mls/hr Documented by: Norepinephrine Bitartrate 8 mg (/ Sodium Chloride) 250 mls @ 9.375 mls/hr CONT INF .[id number] [facility]; Protocol Last Titration: 01/29/19 02:30 Dose: 0 mcg/min, 0 mls/hr Documented by: Vancomycin HCl 2,000 mg/ (Sodium Chloride) 540 mls @ 250 mls/hr IV Q12H [facility] Last Infusion: 01/28/19 23:25 Dose: Infused Documented by: Heparin Sodium/Dextrose () 25,000 units in 250 mls @ 14 mls/hr IV .[id number] [facility]; Protocol Last Admin: 01/29/19 03:07 Dose: 1,000 units/hr, 10 mls/hr Documented by: Insulin Human Lispro (Humalog Kwikpen (Bkc)) 0 unit SC Q6 [facility]; Protocol Last Admin: 01/29/19 05:04 Dose: 1 u Documented by: Magnesium Hydroxide (Milk Of Magnesia) 30 ml GT DAILY PRN PRN Reason: Constipation Methylprednisolone (Solu-Medrol) 40 mg IV Q8 [facility] Last Admin: 01/29/19 05:03 Dose: 40 mg Documented by: Nicotine (Nicoderm Cq (Pbkc)) 21 mg TRANSDERM. DAILY [facility] Last Admin: 01/28/19 10:15 Dose: 21 mg Documented by: Nitroglycerin (Nitrostat) 0.4 mg SUBLINGUAL Q5M PRN PRN Reason: CARDIAC/CHEST PAIN Ondansetron HCl (Zofran) 4 mg IV Q8H PRN PRN PRN Reason: NAUSEA/VOMITING Polyethylene Glycol (Miralax) 17 gm GT BID [facility] Last Admin: 01/28/19 21:24 Dose: 17 gm Documented by: Senna/Docusate Sodium (Senokot-S, Lila-Colace) 2 tablet GT BID [facility] Last Admin: 01/28/19 21:25 Dose: 2 tablet Documented by: Sodium Chloride () 10 - 40 ml IV UD PRN PRN Reason: SALINE FLUSH Last Admin: 01/29/19 08:18 Dose: 10 ml Documented by: Throat Lozenges (Cepacol Sore Throat Lozenge) 1 lozenge MUCOUS MEM Q2H PRN PRN PRN Reason: COUGH Valproic Acid (Depakene) 500 mg GT 4X/DAY [facility] Last Admin: 01/28/19 21:24 Dose: 500 mg Documented by: STROKE Vital Signs/Narrative: Vital Signs Temp Pulse Resp BP Pulse Ox 01/29/19 07:00 99.3 F H 81 14 112/60 96 01/29/19 06:45 82 17 95 01/29/19 06:00 99.3 F H 72 16 108/55 L 95 01/29/19 05:00 99.4 F H 76 14 101/54 L 96 Medical Necessity - Tobacco Use Smoking Status: Current every day smoker Tobacco Use: Cigarettes Assessment/Plan All Active Problems CVA (cerebral vascular accident) (Acute) Slurred speech (Acute) COPD exacerbation (Acute) 1. Acute on chronic hypoxic respiratory failure and septic shock secondary to aspiration/COPD exacerbation/PE -Initial presentation was with a COPD exacerbation and possible viral URI, and then he had an aspiration event which has led to his intubation and findings of septic shock necessitating Levophed -Pressors have been off since about 1 AM -Appreciate ICU assistance -Continue with vent management -He is positive about 14 L, and given his elevated potassium today would recommend IV diuresis, significant edema -He was initially on Coumadin and then switched to Eliquis and then found to have a subsegmental PE on the right and therefore was transitioned to heparin drip, which we will continue. -Continue with Zosyn/Vanco and Solu-Medrol 2. Slurred speech -Neurology was consulted -MRIs and MRAs of the head and neck were negative for a stroke -Echo was unremarkable with an EF of 65% and stage I diastolic dysfunction -Continue with heparin drip, will hold aspirin in the meantime, continue with statin 3. HTN/HLD -Given that he was on pressor support, will hold all blood home blood pressure medications -Monitor and adjust home medications as necessary -Continue with Lipitor 4. History of DVT -At the point of discharge we will plan on discharge on Eliquis given that he is also on Depakote for history of seizures -Given his history of DVT and now a PE, will likely need to be on lifelong anticoagulation 5. History of seizure disorder -Continue with Depakote as able -Appreciate neurology assistance DVT: Heparin drip Code Visit Inpatient E&M: 70674 Subs Hosp L2
[2019-01-29] MEDS: Furosemide 40 MG/4 ML Vial IV ×2 (08:52→16:02)
[2019-01-29] MEDS: CHLORHEXIDINE GLUC 2% CLOTH 1 EACH TOWELETTE TOPICAL (09:47)
[2019-01-29] MEDS: Polyethylene Glycol 3350 17 GM PACKET GT ×2 (09:48→20:27)
[2019-01-29] MEDS: Senna/Docusate Sodium 1 Tablet 2 TABLET GT ×2 (09:49→20:26)
[2019-01-29] MEDS: Famotidine 20 MG Tablet GT ×2 (09:49→20:27)
[2019-01-29] MEDS: Chlorhexidine 15 ML PO ×2 (09:50→20:30)
[2019-01-29] MEDS: Vital AF 1.2 Cal Liquid 1,000 ML 60 ML GT (09:50)
--- NOTE | 2019-01-29 10:02 | CASEMGMT ---
SW participated in rounds, pt remains on a ventilator at this time. SW called pt's CARMENCITA Chely Baker, gave her a brief update and let her know about ICU rounds at 9am each day. She was aware. She did want to speak w/RN. RN is doing pt care, gave her number and she will call Ms. Baker back. SW let her know, she states understanding. SW will continue to follow. ERICKA Easton
[2019-01-29 11:21] LABS: Bedside Glucose 216 mg/dL (70-110)
[2019-01-29] MEDS: fentaNYL drip 100 ML 7.5 MCG IV (12:28)
[2019-01-29] MEDS: Propofol 10MG/Ml 1,000 MG/100 ML Bottle 9.4 MG CONT INF ×2 (12:29→21:00)
[2019-01-29 14:09] LABS: Pathologist Review Reviewed
[2019-01-29 14:26] LABS: Potassium 5.5 mmol/L (3.5-5.1)
[2019-01-29 14:28] LABS: Partial Thromboplast Time 46.2 Seconds (24.1-36.2)
--- NOTE | 2019-01-29 14:35 | CHAPLAIN ---
Type of Pastoral Visit ___ Initial Visit _x__ Follow-up Visit ___ On-call Visit ___ General Patient Visit ___ Spiritual Assessment ___ Family Conference ___ Bereavement ___ Rapid Response ___ Code Blue ___ Other (describe below) Pastoral Care Referral From _x__ Patient ___ Family ___ Nurse ___ Physician ___ Artist'S Representative ___ Nurse Head _x__ Other (describe below) Sacrament/Intervention ___ Active listening ___ Anointing ___ Episcopal ___ Bereavement ___ Communion ___ Gabby exploration ___ ___ Life review _x__ Prayer ___ Reconciliation ___ Sacrament of Sick _x__ Supportive presence ___ Wedding ___ Other (describe below) Pastoral Comments patient had requested initial visits and now he is on the ventilator; offered prayer for pt and left a calling card to notify of support
[2019-01-29] MEDS: Heparin Injection (Vial) 5,000 UNIT/ML VIAL IV (14:52)
[2019-01-29 17:35] LABS: Bedside Glucose 211 mg/dL (70-110)
[2019-01-29] MEDS: Atorvastatin Calcium 80 MG Tablet GT (20:27)
[2019-01-29 20:51] LABS: Bedside Glucose 236 mg/dL (70-110)
[2019-01-29 21:44] LABS: Partial Thromboplast Time 57.5 Seconds (24.1-36.2)
[2019-01-30] VITALS (40 sets, daily range): BP systolic 92–132; BP diastolic 58–76; PULSE 70–97; RESP 12–29; TEMP 37.2–37.7; O2SAT 89–95; BMI 31.9
[2019-01-30] MEDS: guaiFENesin 10 ML UDC (200MG/10ML) GT ×5 (00:11→23:35)
[2019-01-30] MEDS: Insulin Lispro 100 UNIT/ML INSULN.PEN SC ×5 (00:46→23:31)
[2019-01-30 00:56] LABS: Bedside Glucose 221 mg/dL (70-110)
[2019-01-30 03:12] LABS: Partial Thromboplast Time 57.9 Seconds (24.1-36.2)
[2019-01-30] MEDS: Ipratropium/Albuterol Sulfate 3 ML AMPUL.NEB INHALATION ×5 (03:50→22:04)
[2019-01-30] MEDS: fentaNYL drip 100 ML 7.5 MCG IV ×2 (04:13→16:30)
[2019-01-30] MEDS: HEPARIN/D5w 25,000 UNITS 25,000 UNITS/250 ML IV.SOLN. 11 UNITS IV (04:14)
[2019-01-30 05:20] LABS: Hematocrit 33.4 % (40-54); Hemoglobin 10.8 g/dL (13.0-16.5); Mean Corp Hgb Conc 32.3 g/dL (32-36); Mean Corpuscular Hgb 33.8 pg (27.0-32.0); Mean Corpuscular Volume 104.4 fL (80-94); Mean Platelet Vol. 11.5 fl (6.2-12.0); POSITIVE COUNT YES; POSITIVE MORPHOLOGY YES; Platelet Count 110 K/mm3 (150-450); RBC Distribution Width CV 13.8 % (11.6-14.6); RBC Distribution Width SD 52.7 fl (35.1-43.9); White Blood Count 10.7 K/mm3 (4.4-11.0)
[2019-01-30 05:30] LABS: Prothrombin Time (Protime)PT. 12.7 SECONDS (11.7-14.9)
[2019-01-30 05:31] LABS: Partial Thromboplast Time 51.2 Seconds (24.1-36.2)
[2019-01-30] MEDS: Propofol 10MG/Ml 1,000 MG/100 ML Bottle 9.4 MG CONT INF ×3 (05:32→20:20)
[2019-01-30] MEDS: Gabapentin 300 MG Capsule GT ×3 (05:32→22:03)
[2019-01-30] MEDS: CHLORHEXIDINE GLUC 2% CLOTH 1 EACH TOWELETTE TOPICAL (05:33)
[2019-01-30 05:36] LABS: Anion Gap 4 (5-15); BUN 28 mg/dL (7-18); BUN/Creat Ratio 52.3 RATIO (10-20); Calcium,Total 8.4 mg/dL (8.5-10.1); Chloride 96 mmol/L (98-107); Creatinine, Serum 0.54 mg/dL (0.70-1.30); EST Glomerular Filtration Rate 166 mL/min (>60); Est Glom Filt Rate - Afr Amer 201 mL/min (>60); Estimated Creatinine Clearance 143.65 ml/min; Glucose 196 mg/dL (74-106); Potassium 5.3 mmol/L (3.5-5.1); Sodium Level 136 mmol/L (136-145)
[2019-01-30 05:51] LABS: Bedside Glucose 182 mg/dL (70-110)
[2019-01-30 06:20] LABS: Differential Indicated MANUAL DIFF
[2019-01-30 06:36] LABS: Lymphocyte 16 % (19-41); Metamyelocyte 4 % (0-1); Monocyte 5 % (0-10); Neutrophil-Band 2 % (0-5); Neutrophil-Segmented 73 % (47-70); Nucleated Red Bld Cells,Manual 2 % (0-5); Total Cells Counted 100 (MANUAL DIFF)
[2019-01-30 06:37] LABS: Platelet Estimate ADEQUATE (ADEQ); Red Cell Morphology NORM C+C NORMAL (NORM C&C)
[2019-01-30 06:38] LABS: Absolute Lymphocyte Count 1.71 X10^3/uL (0.83-4.51); Lymphocyte # 1.71 X10^3/ul (4.0); Neutrophil # 8.03 X10^3/uL (2.7-7.7)
[2019-01-30] MEDS: Furosemide 40 MG/4 ML Vial IV ×3 (06:51→22:04)
--- NOTE | 2019-01-30 07:22 | PCM.PN.HOSP ---
Patient Problems: Active and Suspected Problems CVA (cerebral vascular accident) (Acute) Slurred speech (Acute) Subjective: Intubated and sedated, he failed spontaneous breathing trial again this morning Vitals/I&O's: Vital Signs Temp Pulse Resp BP Pulse Ox 99.1 F 72 14 117/65 91 01/30/19 06:00 01/30/19 06:36 01/30/19 06:36 01/30/19 06:00 01/30/19 06:34 Oxygen Flow Rate (L/min) 6 Oxygen Delivery Method Mechanical Ventilator Weight: 230 lb 13.184 oz Body Mass Index (BMI) 31.9 Intake and Output for Last 24 Hours 01/28/19 01/29/19 01/30/19 23:59 23:59 23:59 Intake Total 4491.51 / 5730.51 4006.36 / 4785.26 1530.69 / 1530.69 Output Total 1000 / 1300 3475 / 3925 850 / 850 Balance 3491.51 / 4430.51 531.36 / 860.26 680.69 / 680.69 General: - - Intubated and sedated HEENT: Atraumatic, PERRLA, Normocephalic, - - Intubated Oral: Moist Mucosa Neck: Supple, No JVD Lungs: Diminished, Rhonchi, Wheezes Cardiovascular: Regular rate, Regular Rhythm, Normal S1, Normal S2, No murmurs Abdomen: Soft, Non-Distended, No Hepato-splenomegaly Extremities: Capillary Refill Less than 3 Seconds, Edema Skin: No rashes, No breakdown Neurological: - - Intubated and sedated Psych/Mental Status: - - Intubated and sedated Microbiology Past 72 Hours 01/26/19 10:45 Sputum, Induced/Lukens Gram Stain - Final 01/26/19 10:45 Sputum, Induced/Lukens Respiratory Culture - Preliminary Haemophilus influenzae Streptococcus pneumoniae 01/23/19 18:00 Blood Culture (Wb) - Anticubital Left Blood Culture - Final No growth in 5 days. 01/23/19 18:10 Blood Culture (Wb) - Right Forearm Blood Culture - Final No growth in 5 days. 01/26/19 12:55 Urine Catheter - [place] Urine Culture - Final Culture exhibits no growth. Laboratory Results 01/26/19 10:24: Miscellaneous Test 01/26/19 12:55: Diff Path Review Reviewed 01/29/19 07:30: APTT 55.9 H 01/29/19 07:30: Sodium 136, Potassium 6.0 H*, Chloride 101, Carbon Dioxide 31.0, Anion Gap 4 L, BUN 20 H, Creatinine 0.49 L, Estim Creat Clear Calc 158.31, Est GFR (MDRD) Af Amer 221, Est GFR (MDRD) Non-Af 183, BUN/Creatinine Ratio 40.7 H, Glucose 191 H, Calcium 8.5 01/29/19 07:54: Specimen Type ART, Sample Site L Radial, pH 7.31 L, Bicarbonate Actual 33.7 H, POC Total CO2 36, Base Excess 7 H, O2 Saturation 96, O2 % 100, ABG pCO2 67.3 H*, ABG pO2 92, Dariusz Test POS, O2 Delivery Device Vent, Vent Mode APRV, Pressure High 20.0, Pressure Low 0.0, Time High 4.0, Time Low 0.5, Blood Gas Notified Whom ICU MD, Blood Gas Notified Time 748 01/29/19 11:03: POC Glucose 216 H 01/29/19 14:10: APTT 46.2 H 01/29/19 14:10: Potassium 5.5 H 01/29/19 17:29: POC Glucose 211 H 01/29/19 20:42: POC Glucose 236 H 01/29/19 20:55: APTT Cancelled 01/29/19 21:20: APTT 57.5 H 01/30/19 00:42: POC Glucose 221 H 01/30/19 02:45: APTT 57.9 H 01/30/19 05:10: Sodium 136, Potassium 5.3 H, Chloride 96 L, Carbon Dioxide 36.0 H, Anion Gap 4 L, BUN 28 H, Creatinine 0.54 L, Estim Creat Clear Calc 143.65, Est GFR (MDRD) Af Amer 201, Est GFR (MDRD) Non-Af 166, BUN/Creatinine Ratio 52.3 H, Glucose 196 H, Calcium 8.4 L 01/30/19 05:10: WBC 10.7, RBC 3.20 L, Hgb 10.8 L, Hct 33.4 L, MCV 104.4 H, MCH 33.8 H, MCHC 32.3, RDW Std Deviation 52.7 H, RDW Coeff of Mohsen 13.8, Plt Count 110 L, MPV 11.5, Neut % (Auto) Not Reportable, Absolute Neuts (auto) 8.0 H, Absolute Lymphs (auto) 1.71, Total Counted 100, Neutrophils % (Manual) 73 H, Band Neutrophils % 2, Lymphocytes % (Manual) 16 L, Monocytes % (Manual) 5, Metamyelocytes % 4 H, Nucleated RBCs/100 WBC 2, Diff Path Review July, Platelet Estimate ADEQUATE, RBC Morphology NORM C+C 01/30/19 05:10: PT 12.7, INR 1.0, APTT 51.2 H 01/30/19 05:35: POC Glucose 182 H Current Medications Acetaminophen (Tylenol) 650 mg PO Q6H PRN PRN PRN Reason: Non-cardiac pain (-12/14) Last Admin: 01/25/19 15:13 Dose: 650 mg Documented by: Acetaminophen (Tylenol Liquid) 650 mg GT Q6H PRN PRN PRN Reason: TEMP>101 Al Hydroxide/Mg Hydroxide (Mylanta Ii) 15 - 30 ml PO Q4H PRN PRN PRN Reason: INDIGESTION Albuterol Sulfate (Ventolin Aerosols) 2.5 mg INHALATION Q2H PRN PRN PRN Reason: dyspnea, wheezing Last Admin: 01/26/19 09:26 Dose: 2.5 mg Documented by: Albuterol/Ipratropium (Duoneb) 3 ml INHALATION Q4HWA.RT [facility] Last Admin: 01/30/19 06:36 Dose: 3 ml Documented by: Atorvastatin Calcium (Lipitor) 80 mg GT QHS [facility] Last Admin: 01/29/19 20:27 Dose: 80 mg Documented by: Chlorhexidine Gluconate () 15 ml PO BID [facility] Last Admin: 01/29/19 20:30 Dose: 15 ml Documented by: Chlorhexidine Gluconate () 1 each TOPICAL DAILY [facility] Last Admin: 01/30/19 05:33 Dose: 1 each Documented by: Dextrose (D50w Syringe) 0 gm IV X1 PRN; Protocol PRN Reason: Hypoglycemia Divalproex Sodium (Depakote Er) 500 mg PO 0700,1300 [facility] Last Admin: 01/26/19 13:30 Dose: Not Given Documented by: Divalproex Sodium (Depakote Er) 1,000 mg PO QHS [facility] Last Admin: 01/25/19 21:41 Dose: 1,000 mg Documented by: Famotidine (Pepcid) 20 mg GT BID [facility] Last Admin: 01/29/19 20:27 Dose: 20 mg Documented by: Furosemide (Lasix) 40 mg IV Q8 [facility] Gabapentin (Neurontin) 300 mg GT TID [facility] Last Admin: 01/30/19 05:32 Dose: 300 mg Documented by: Glucagon () 1 mg IM .X1 PRN PRN Reason: Hypoglycemia Guaifenesin (Robitussin) 10 ml GT Q6H PRN Guaifenesin (Robitussin) 10 ml GT Q6H [facility] Last Admin: 01/30/19 05:33 Dose: 10 ml Documented by: Heparin Sodium (Porcine) (Heparin Na) 0 unit IV UD PRN; Protocol Last Admin: 01/29/19 14:52 Dose: 1,000 unit Documented by: Sodium Chloride () 250 mls @ 15 mls/hr IV .[id number] PRN PRN Reason: Saline Flush Enteral Nutritional Formula (Vital Af 1.2 Truong Liquid) 1,000 mls @ 60 mls/hr GT .[id number] [facility] Last Admin: 01/29/19 09:50 Dose: 60 mls/hr Documented by: Fentanyl () 100 mls @ 15 mls/hr IV UD [facility]; Protocol Last Titration: 01/30/19 06:00 Dose: 75 mcg/hr, 7.5 mls/hr Documented by: Propofol (Diprivan) 1,000 mg in 100 mls @ 18.882 mls/hr CONT INF .Q5H18M [facility]; Protocol Last Admin: 01/30/19 06:51 Dose: Not Given Documented by: Heparin Sodium/Dextrose () 25,000 units in 250 mls @ 14 mls/hr IV .[id number] [facility]; Protocol Last Titration: 01/30/19 06:28 Dose: 1,100 units/hr, 11 mls/hr Documented by: Ampicillin Sodium/Sulbactam (Sodium 3 gm/ Sodium Chloride) 112 mls @ 150 mls/hr IV Q6 [facility] Last Infusion: 01/30/19 06:27 Dose: Infused Documented by: Insulin Glargine (Lantus (Bk)) 5 units SC BID [facility] Last Admin: 01/29/19 20:43 Dose: 5 u Documented by: Insulin Human Lispro (Humalog Kwikpen ([facility])) 0 unit SC Q6 [facility]; Protocol Last Admin: 01/30/19 05:37 Dose: 1 u Documented by: Magnesium Hydroxide (Milk Of Magnesia) 30 ml GT DAILY PRN PRN Reason: Constipation Methylprednisolone (Solu-Medrol) 40 mg IV Q8 [facility] Last Admin: 01/30/19 05:32 Dose: 40 mg Documented by: Nicotine (Nicoderm Cq ([facility])) 21 mg TRANSDERM. DAILY [facility] Last Admin: 01/29/19 09:48 Dose: 21 mg Documented by: Nitroglycerin (Nitrostat) 0.4 mg SUBLINGUAL Q5M PRN PRN Reason: CARDIAC/CHEST PAIN Ondansetron HCl (Zofran) 4 mg IV Q8H PRN PRN PRN Reason: NAUSEA/VOMITING Polyethylene Glycol (Miralax) 17 gm GT BID [facility] Last Admin: 01/29/19 20:27 Dose: 17 gm Documented by: Senna/Docusate Sodium (Senokot-S, Lila-Colace) 2 tablet GT BID [facility] Last Admin: 01/29/19 20:26 Dose: 2 tablet Documented by: Sodium Chloride () 10 - 40 ml IV UD PRN PRN Reason: SALINE FLUSH Last Admin: 01/29/19 16:02 Dose: 10 ml Documented by: Throat Lozenges (Cepacol Sore Throat Lozenge) 1 lozenge MUCOUS MEM Q2H PRN PRN PRN Reason: COUGH Valproic Acid (Depakene) 500 mg GT 4X/DAY [facility] Last Admin: 01/29/19 20:28 Dose: 500 mg Documented by: STROKE Vital Signs/Narrative: Vital Signs Temp Pulse Resp BP Pulse Ox 01/30/19 06:36 72 14 01/30/19 06:34 85 15 91 01/30/19 06:02 83 21 H 92 01/30/19 06:00 99.1 F 78 13 117/65 92 01/30/19 05:00 99.1 F 89 21 H 112/76 92 01/30/19 04:00 99.2 F H 82 14 108/58 L 92 01/30/19 03:50 80 23 H 91 Medical Necessity - Tobacco Use Smoking Status: Current every day smoker Tobacco Use: Cigarettes Assessment/Plan All Active Problems CVA (cerebral vascular accident) (Acute) Slurred speech (Acute) COPD exacerbation (Acute) 1. Acute on chronic hypoxic respiratory failure and septic shock secondary to aspiration/COPD exacerbation/PE -Initial presentation was with a COPD exacerbation and possible viral URI, and then he had an aspiration event which has led to his intubation and findings of septic shock necessitating Levophed -Pressors have been off since 01/29/19 -Appreciate ICU assistance -Continue with vent management -He is positive about 14 L, and given his elevated potassium today would recommend IV diuresis, significant edema -He was initially on Coumadin and then switched to Eliquis and then found to have a subsegmental PE on the right and therefore was transitioned to heparin drip, which we will continue. -Continue with unasyn and Solu-Medrol for H. influenzae, and S. pneumo 2. Slurred speech -Neurology was consulted -MRIs and MRAs of the head and neck were negative for a stroke -Echo was unremarkable with an EF of 65% and stage I diastolic dysfunction -Continue with heparin drip, will hold aspirin in the meantime, continue with statin 3. HTN/HLD -Given that he was on pressor support, will hold all blood home blood pressure medications -Monitor and adjust home medications as necessary -Continue with Lipitor 4. History of DVT -At the point of discharge we will plan on discharge on Eliquis given that he is also on Depakote for history of seizures -Given his history of DVT and now a PE, will likely need to be on lifelong anticoagulation 5. History of seizure disorder -Continue with Depakote as able -Appreciate neurology assistance DVT: Heparin drip Code Visit Inpatient E&M: [id number] Subs Hosp L2
[2019-01-30 07:26] LABS: Base Excess 18 mmol/L (-2 to +2); Bicarbonate 41.7 mmol/L (22-26); Blood Gas Specimen Type ART; FI02 60; Mode APRV; O2 Delivery Device Vent; PO2 66 mmHG (75-100); SITE L Radial; SO2 93 % (95-99); T LOW 0.5; Time Given 721; Total Carbon Dioxide 43 mmol/L; pCO2 56.8 mmHg (35-45); pH 7.47 (7.35-7.45)
--- NOTE | 2019-01-30 07:44 | PN_ITS ---
Subjective: Patient did okay overnight. Patient has remained hemodynamically stable. Patient is tolerating APRV well and has been able to be decreased to 60% FiO2. Patient has had diuresis with Lasix intermittently. No significant fever noted overnight. General: - - Intubated and sedated. Good vent synchrony. HEENT: Atraumatic, PERRLA, EOMI, Normocephalic, - - No scleral icterus or injection noted Oral: Moist Mucosa, No Gingival or Mucosal Lesions/ Ulcerations Neck: Supple, No JVD, No Nodes, Trachea Midline Lungs: Diminished, Rhonchi, Wheezes Cardiovascular: Regular rate, Regular Rhythm, Normal S1, Normal S2, No murmurs, No rub noted, No Gallop Abdomen: Bowel Sounds Present, Soft, Non Tender, Non-Distended, Obese Extremities: No clubbing, No cyanosis, Edema - Anasarca Skin: No rashes, No breakdown Musculoskeletal: No Tenderness to Palpation of Joints or Extremities Lymphatic: No Cervical, Supraclavicular, or Inguinal Adenopathy Neurological: Cranial nerves II-XII grossly intact, Neuro grossly intact Psych/Mental Status: Flat Affect Vital Signs Temp Pulse Resp BP Pulse Ox 37.3 C 72 14 117/65 91 01/30/19 06:00 01/30/19 06:36 01/30/19 06:36 01/30/19 06:00 01/30/19 06:34 Oxygen Flow Rate (L/min) 6 Oxygen Delivery Method Mechanical Ventilator Weight: 104.7 kg Body Mass Index (BMI) 31.9 Intake and Output for Last 24 Hours 01/28/19 01/29/19 01/30/19 23:59 23:59 23:59 Intake Total 4491.51 / 5730.51 4006.36 / 4785.26 1530.69 / 1530.69 Output Total 1000 / 1300 3475 / 3925 850 / 850 Balance 3491.51 / 4430.51 531.36 / 860.26 680.69 / 680.69 Labs (Last 48 Hours) 01/26/19 01/26/19 01/28/19 10:24 12:55 10:00 WBC RBC Hgb Hct MCV MCH MCHC RDW Std Deviation RDW Coeff of Mohsen Plt Count MPV Immature Gran % (Auto) Neut % (Auto) Lymph % (Auto) [place] % (Auto) Eos % (Auto) Baso % (Auto) Absolute Neuts (auto) Absolute Lymphs (auto) Total Counted Neutrophils % (Manual) Band Neutrophils % Lymphocytes % (Manual) Monocytes % (Manual) Metamyelocytes % Nucleated RBC % Nucleated RBCs/100 WBC Diff Path Review Reviewed Platelet Estimate RBC Morphology PT 13.9 INR 1.1 APTT 32.8 Specimen Type Sample Site pH Bicarbonate Actual POC Total CO2 Base Excess O2 Saturation O2 % ABG pCO2 ABG pO2 Dariusz Test Respiration Rate O2 Delivery Device Vent Mode Tidal Volume POC PEEP Pressure High Pressure Low Time High Time Low Blood Gas Notified Whom Blood Gas Notified Time Sodium Potassium Chloride Carbon Dioxide Anion Gap BUN Creatinine Estim Creat Clear Calc Est GFR (MDRD) Af Amer Est GFR (MDRD) Non-Af BUN/Creatinine Ratio Glucose Calcium Troponin I Miscellaneous Test POC Glucose 01/28/19 01/28/19 01/28/19 11:10 11:42 16:00 WBC RBC Hgb Hct MCV MCH MCHC RDW Std Deviation RDW Coeff of Mohsen Plt Count MPV Immature Gran % (Auto) Neut % (Auto) Lymph % (Auto) [place] % (Auto) Eos % (Auto) Baso % (Auto) Absolute Neuts (auto) Absolute Lymphs (auto) Total Counted Neutrophils % (Manual) Band Neutrophils % Lymphocytes % (Manual) Monocytes % (Manual) Metamyelocytes % Nucleated RBC % Nucleated RBCs/100 WBC Diff Path Review Platelet Estimate RBC Morphology PT INR APTT 89.2 H Specimen Type Sample Site pH Bicarbonate Actual POC Total CO2 Base Excess O2 Saturation O2 % ABG pCO2 ABG pO2 Dariusz Test Respiration Rate O2 Delivery Device Vent Mode Tidal Volume POC PEEP Pressure High Pressure Low Time High Time Low Blood Gas Notified Whom Blood Gas Notified Time Sodium Potassium Chloride Carbon Dioxide Anion Gap BUN Creatinine Estim Creat Clear Calc Est GFR (MDRD) Af Amer Est GFR (MDRD) Non-Af BUN/Creatinine Ratio Glucose Calcium Troponin I < 0.015 Miscellaneous Test POC Glucose 198 H 01/28/19 01/28/19 01/28/19 18:33 23:00 23:45 WBC RBC Hgb Hct MCV MCH MCHC RDW Std Deviation RDW Coeff of [place]sen Plt Count MPV Immature Gran % (Auto) Neut % (Auto) Lymph % (Auto) [place] % (Auto) Eos % (Auto) Baso % (Auto) Absolute Neuts (auto) Absolute Lymphs (auto) Total Counted Neutrophils % (Manual) Band Neutrophils % Lymphocytes % (Manual) Monocytes % (Manual) Metamyelocytes % Nucleated RBC % Nucleated RBCs/100 WBC Diff Path Review Platelet Estimate RBC Morphology PT INR APTT Cancelled 104.8 H* Specimen Type Sample Site pH Bicarbonate Actual POC Total CO2 Base Excess O2 Saturation O2 % ABG pCO2 ABG pO2 Dariusz Test Respiration Rate O2 Delivery Device Vent Mode Tidal Volume POC PEEP Pressure High Pressure Low Time High Time Low Blood Gas Notified Whom Blood Gas Notified Time Sodium Potassium Chloride Carbon Dioxide Anion Gap BUN Creatinine Estim Creat Clear Calc Est GFR (MDRD) Af Amer Est GFR (MDRD) Non-Af BUN/Creatinine Ratio Glucose Calcium Troponin I Miscellaneous Test POC Glucose 199 H 01/29/19 01/29/19 01/29/19 00:19 05:02 06:39 WBC RBC Hgb Hct MCV MCH MCHC RDW Std Deviation RDW Coeff of [place] Plt Count MPV Immature Gran % (Auto) Neut % (Auto) Lymph % (Auto) [place] % (Auto) Eos % (Auto) Baso % (Auto) Absolute Neuts (auto) Absolute Lymphs (auto) Total Counted Neutrophils % (Manual) Band Neutrophils % Lymphocytes % (Manual) Monocytes % (Manual) Metamyelocytes % Nucleated RBC % Nucleated RBCs/100 WBC Diff Path Review Platelet Estimate RBC Morphology PT INR APTT Specimen Type ART Sample Site L Radial pH 7.31 L Bicarbonate Actual 33.5 H POC Total CO2 35 Base Excess 7 H O2 Saturation 97 O2 % 100 ABG pCO2 66.3 H ABG pO2 106 H Dariusz Test POS Respiration Rate 16 O2 Delivery Device Vent Vent Mode A-C Tidal Volume 500 POC PEEP 14 Pressure High Pressure Low Time High Time Low Blood Gas Notified Whom ICU MD Blood Gas Notified Time 635 Sodium Potassium Chloride Carbon Dioxide Anion Gap BUN Creatinine Estim Creat Clear Calc Est GFR (MDRD) Af Amer Est GFR (MDRD) Non-Af BUN/Creatinine Ratio Glucose Calcium Troponin I Miscellaneous Test POC Glucose 212 H 195 H 01/29/19 01/29/19 01/29/19 06:40 06:40 06:40 WBC 12.2 H RBC 3.22 L Hgb 11.2 L Hct 34.2 L MCV 106.2 H MCH 34.8 H MCHC 32.7 RDW Std Deviation 53.1 H RDW Coeff of Mohsen 13.8 Plt Count 81 L MPV 12.2 H Immature Gran % (Auto) 4.300 H Neut % (Auto) 83.4 H Lymph % (Auto) 6.2 L [place] % (Auto) 5.4 Eos % (Auto) 0.4 Baso % (Auto) 0.3 Absolute Neuts (auto) 10.1 H Absolute Lymphs (auto) 0.75 L Total Counted Neutrophils % (Manual) Band Neutrophils % Lymphocytes % (Manual) Monocytes % (Manual) Metamyelocytes % Nucleated RBC % 0.7 Nucleated RBCs/100 WBC Diff Path Review Platelet Estimate RBC Morphology PT INR APTT Cancelled Specimen Type Sample Site pH Bicarbonate Actual POC Total CO2 Base Excess O2 Saturation O2 % ABG pCO2 ABG pO2 Dariusz Test Respiration Rate O2 Delivery Device Vent Mode Tidal Volume POC PEEP Pressure High Pressure Low Time High Time Low Blood Gas Notified Whom Blood Gas Notified Time Sodium Cancelled Potassium Cancelled Chloride Cancelled Carbon Dioxide Cancelled Anion Gap Cancelled BUN Cancelled Creatinine Cancelled Estim Creat Clear Calc Cancelled Est GFR (MDRD) Af Amer Cancelled Est GFR (MDRD) Non-Af Cancelled BUN/Creatinine Ratio Cancelled Glucose Cancelled Calcium Cancelled Troponin I Miscellaneous Test POC Glucose 01/29/19 01/29/19 01/29/19 07:30 07:30 07:54 WBC RBC Hgb Hct MCV MCH MCHC RDW Std Deviation RDW Coeff of Mohsen Plt Count MPV Immature Gran % (Auto) Neut % (Auto) Lymph % (Auto) [place] % (Auto) Eos % (Auto) Baso % (Auto) Absolute Neuts (auto) Absolute Lymphs (auto) Total Counted Neutrophils % (Manual) Band Neutrophils % Lymphocytes % (Manual) Monocytes % (Manual) Metamyelocytes % Nucleated RBC % Nucleated RBCs/100 WBC Diff Path Review Platelet Estimate RBC Morphology PT INR APTT 55.9 H Specimen Type ART Sample Site L Radial pH 7.31 L Bicarbonate Actual 33.7 H POC Total CO2 36 Base Excess 7 H O2 Saturation 96 O2 % 100 ABG pCO2 67.3 H* ABG pO2 92 Dariusz Test POS Respiration Rate O2 Delivery Device Vent Vent Mode APRV Tidal Volume POC PEEP Pressure High 20.0 Pressure Low 0.0 Time High 4.0 Time Low 0.5 Blood Gas Notified Whom ICU MD Blood Gas Notified Time 748 Sodium 136 Potassium 6.0 H* Chloride 101 Carbon Dioxide 31.0 Anion Gap 4 L BUN 20 H Creatinine 0.49 L Estim Creat Clear Calc 158.31 Est GFR (MDRD) Af Amer 221 Est GFR (MDRD) Non-Af 183 BUN/Creatinine Ratio 40.7 H Glucose 191 H Calcium 8.5 Troponin I Miscellaneous Test POC Glucose 01/29/19 01/29/19 01/29/19 11:03 14:10 14:10 WBC RBC Hgb Hct MCV MCH MCHC RDW Std Deviation RDW Coeff of Mohsen Plt Count MPV Immature Gran % (Auto) Neut % (Auto) Lymph % (Auto) [place] % (Auto) Eos % (Auto) Baso % (Auto) Absolute Neuts (auto) Absolute Lymphs (auto) Total Counted Neutrophils % (Manual) Band Neutrophils % Lymphocytes % (Manual) Monocytes % (Manual) Metamyelocytes % Nucleated RBC % Nucleated RBCs/100 WBC Diff Path Review Platelet Estimate RBC Morphology PT INR APTT 46.2 H Specimen Type Sample Site pH Bicarbonate Actual POC Total CO2 Base Excess O2 Saturation O2 % ABG pCO2 ABG pO2 Dariusz Test Respiration Rate O2 Delivery Device Vent Mode Tidal Volume POC PEEP Pressure High Pressure Low Time High Time Low Blood Gas Notified Whom Blood Gas Notified Time Sodium Potassium 5.5 H Chloride Carbon Dioxide Anion Gap BUN Creatinine Estim Creat Clear Calc Est GFR (MDRD) Af Amer Est GFR (MDRD) Non-Af BUN/Creatinine Ratio Glucose Calcium Troponin I Miscellaneous Test POC Glucose 216 H 01/29/19 01/29/19 01/29/19 17:29 20:42 20:55 WBC RBC Hgb Hct MCV MCH MCHC RDW Std Deviation RDW Coeff of Mohsen Plt Count MPV Immature Gran % (Auto) Neut % (Auto) Lymph % (Auto) [place] % (Auto) Eos % (Auto) Baso % (Auto) Absolute Neuts (auto) Absolute Lymphs (auto) Total Counted Neutrophils % (Manual) Band Neutrophils % Lymphocytes % (Manual) Monocytes % (Manual) Metamyelocytes % Nucleated RBC % Nucleated RBCs/100 WBC Diff Path Review Platelet Estimate RBC Morphology PT INR APTT Cancelled Specimen Type Sample Site pH Bicarbonate Actual POC Total CO2 Base Excess O2 Saturation O2 % ABG pCO2 ABG pO2 Dariusz Test Respiration Rate O2 Delivery Device Vent Mode Tidal Volume POC PEEP Pressure High Pressure Low Time High Time Low Blood Gas Notified Whom Blood Gas Notified Time Sodium Potassium Chloride Carbon Dioxide Anion Gap BUN Creatinine Estim Creat Clear Calc Est GFR (MDRD) Af Amer Est GFR (MDRD) Non-Af BUN/Creatinine Ratio Glucose Calcium Troponin I Miscellaneous Test POC Glucose 211 H 236 H 01/29/19 01/30/19 01/30/19 21:20 00:42 02:45 WBC RBC Hgb Hct MCV MCH MCHC RDW Std Deviation RDW Coeff of Mohsen Plt Count MPV Immature Gran % (Auto) Neut % (Auto) Lymph % (Auto) [place] % (Auto) Eos % (Auto) Baso % (Auto) Absolute Neuts (auto) Absolute Lymphs (auto) Total Counted Neutrophils % (Manual) Band Neutrophils % Lymphocytes % (Manual) Monocytes % (Manual) Metamyelocytes % Nucleated RBC % Nucleated RBCs/100 WBC Diff Path Review Platelet Estimate RBC Morphology PT INR APTT 57.5 H 57.9 H Specimen Type Sample Site pH Bicarbonate Actual POC Total CO2 Base Excess O2 Saturation O2 % ABG pCO2 ABG pO2 Dariusz Test Respiration Rate O2 Delivery Device Vent Mode Tidal Volume POC PEEP Pressure High Pressure Low Time High Time Low Blood Gas Notified Whom Blood Gas Notified Time Sodium Potassium Chloride Carbon Dioxide Anion Gap BUN Creatinine Estim Creat Clear Calc Est GFR (MDRD) Af Amer Est GFR (MDRD) Non-Af BUN/Creatinine Ratio Glucose Calcium Troponin I Miscellaneous Test POC Glucose 221 H 01/30/19 01/30/19 01/30/19 05:10 05:10 05:10 WBC 10.7 RBC 3.20 L Hgb 10.8 L Hct 33.4 L MCV 104.4 H MCH 33.8 H MCHC 32.3 RDW Std Deviation 52.7 H RDW Coeff of Mohsen 13.8 Plt Count 110 L MPV 11.5 Immature Gran % (Auto) Neut % (Auto) Not Reportable Lymph % (Auto) [place] % (Auto) Eos % (Auto) Baso % (Auto) Absolute Neuts (auto) 8.0 H Absolute Lymphs (auto) 1.71 Total Counted 100 Neutrophils % (Manual) 73 H Band Neutrophils % 2 Lymphocytes % (Manual) 16 L Monocytes % (Manual) 5 Metamyelocytes % 4 H Nucleated RBC % Nucleated RBCs/100 WBC 2 Diff Path Review May foll Platelet Estimate ADEQUATE RBC Morphology NORM C+C PT 12.7 INR 1.0 APTT 51.2 H Specimen Type Sample Site pH Bicarbonate Actual POC Total CO2 Base Excess O2 Saturation O2 % ABG pCO2 ABG pO2 Dariusz Test Respiration Rate O2 Delivery Device Vent Mode Tidal Volume POC PEEP Pressure High Pressure Low Time High Time Low Blood Gas Notified Whom Blood Gas Notified Time Sodium 136 Potassium 5.3 H Chloride 96 L Carbon Dioxide 36.0 H Anion Gap 4 L BUN 28 H Creatinine 0.54 L Estim Creat Clear Calc 143.65 Est GFR (MDRD) Af Amer 201 Est GFR (MDRD) Non-Af 166 BUN/Creatinine Ratio 52.3 H Glucose 196 H Calcium 8.4 L Troponin I Miscellaneous Test POC Glucose 01/30/19 01/30/19 05:35 07:22 WBC RBC Hgb Hct MCV MCH MCHC RDW Std Deviation RDW Coeff of Mohsen Plt Count MPV Immature Gran % (Auto) Neut % (Auto) Lymph % (Auto) [place] % (Auto) Eos % (Auto) Baso % (Auto) Absolute Neuts (auto) Absolute Lymphs (auto) Total Counted Neutrophils % (Manual) Band Neutrophils % Lymphocytes % (Manual) Monocytes % (Manual) Metamyelocytes % Nucleated RBC % Nucleated RBCs/100 WBC Diff Path Review Platelet Estimate RBC Morphology PT INR APTT Specimen Type ART Sample Site L Radial pH 7.47 H Bicarbonate Actual 41.7 H POC Total CO2 43 Base Excess 18 H O2 Saturation 93 L O2 % 60 ABG pCO2 56.8 H ABG pO2 66 L Dariusz Test Respiration Rate O2 Delivery Device Vent Vent Mode APRV Tidal Volume POC PEEP Pressure High 20.0 Pressure Low 0.0 Time High 4.0 Time Low 0.5 Blood Gas Notified Whom ICU MD Blood Gas Notified Time 721 Sodium Potassium Chloride Carbon Dioxide Anion Gap BUN Creatinine Estim Creat Clear Calc Est GFR (MDRD) Af Amer Est GFR (MDRD) Non-Af BUN/Creatinine Ratio Glucose Calcium Troponin I Miscellaneous Test POC Glucose 182 H Microbiology 01/26/19 10:45 Sputum, Induced/[place] Gram Stain - Final 01/26/19 10:45 Sputum, Induced/[place] Respiratory Culture - Final Haemophilus influenzae Streptococcus pneumoniae 01/23/19 18:00 Blood Culture (Wb) - Anticubital Left Blood Culture - Final No growth in 5 days. 01/23/19 18:10 Blood Culture (Wb) - Right Forearm Blood Culture - Final No growth in 5 days. 01/26/19 12:55 Urine Catheter - [place] Urine Culture - Final Culture exhibits no growth. Medical Necessity - Tobacco Use Smoking Status: Current every day smoker Tobacco Use: Cigarettes Assessment/Plan All Active Problems CVA (cerebral vascular accident) (Acute) Slurred speech (Acute) COPD exacerbation (Acute) RECOMMENDATIONS: 1. Continue APRV ventilation, wean oxygen as tolerated 2. Continue Unasyn to complete a 10-day course 3. Schedule diuretic therapy 4. Continue to wean FiO2 and PEEP to maintain an oxygen saturation at or above 90%. 5. Continue bronchodilators and steroids. 6. Continue tube feeds as ordered. 7. Continue appropriate ICU prophylaxis. IMPRESSIONS: 1. Acute on chronic hypoxemic respiratory failure secondary to presumed aspiration pneumonia The patient was emergently transferred to the ICU on the morning of January 26, where he did require intubation due to impending respiratory failure following an aspiration event. Patient now with multiple etiologies of hypoxic respiratory failure including COPD, H. influenzae and small pulmonary emboli. Patient is on anticoagulation. Repeat ABG this morning shows adequate ventilation on APRV. We will continue to try to wean oxygen as tolerated through the day. Likely attempt to wean P high once patient is at 40%. Patient still with significant anasarca. Will attempt to diurese now the patient is off of pressors 2. Septic shock secondary to presumed aspiration pneumonia Been able to come off of pressor therapy yesterday. We will continue with broad-spectrum antibiotics pending sensitivities for H. influenzae and pneumococcus. Will schedule diuresis given adequate blood pressures 3. COPD with exacerbation Inciting etiology appears to be aspiration event and possible pulmonary emboli. Continue current supportive measures as noted above along with bronc hodilators and steroids. Wean oxygen as tolerated. Anticipate keeping steroids at current levels until extubated 4. Slurred speech Neurology is currently following. Work-up has been unrevealing to date. 5. History of venous thrombi embolic disease/hypertension/hyperlipidemia/seizure disorder/continuous tobacco dependency Complicates care, management, recovery and prognosis. Hold home antihypertensives and diuretics for now. Continue antiepileptics. 6. Hyperkalemia Improving with diuresis. Patient reportedly did not have a hemolyzed sample, but has isolated hyperkalemia. Renal function appears to be intact at this time. We will hold off on giving acute intervention. Significant acidosis was not noted on ABG. TIME: 34 minutes of critical care time, independent of procedures, was spent addressing the patient's acute on chronic hypoxemic respiratory failure, septic shock secondary to presumed aspiration pneumonia, COPD with exacerbation, review of all data and collaboration with the care team. (6:30 AM to 7:30 AM) Code Visit [id number]: [id number] Critical care first hour
[2019-01-30] MEDS: Heparin Injection (Vial) 5,000 UNIT/ML VIAL IV (08:18)
[2019-01-30] MEDS: Vital AF 1.2 Cal Liquid 1,000 ML 60 ML GT (09:28)
[2019-01-30] MEDS: Polyethylene Glycol 3350 17 GM PACKET GT ×2 (09:33→21:51)
[2019-01-30] MEDS: Magnesium Hydroxide 30 ML UDC GT (09:33)
[2019-01-30] MEDS: Senna/Docusate Sodium 1 Tablet 2 TABLET GT ×2 (09:33→21:51)
[2019-01-30] MEDS: Famotidine 20 MG Tablet GT ×2 (09:34→22:03)
[2019-01-30] MEDS: Chlorhexidine 15 ML PO ×2 (09:36→22:06)
[2019-01-30] MEDS: 0.9% Saline Lock 10 ML Syringe IV ×2 (13:06→22:06)
[2019-01-30 13:51] LABS: Bedside Glucose 217 mg/dL (70-110)
[2019-01-30 15:44] LABS: Pathologist Review Reviewed
[2019-01-30] MEDS: Bisacodyl 10 MG Suppository RECTAL (16:29)
[2019-01-30 16:45] LABS: Bedside Glucose 200 mg/dL (70-110)
[2019-01-30] MEDS: Atorvastatin Calcium 80 MG Tablet GT (22:03)
[2019-01-31] VITALS (40 sets, daily range): BP systolic 90–138; BP diastolic 52–91; PULSE 66–98; RESP 10–30; TEMP 37.2–37.6; O2SAT 89–97; BMI 31.9
[2019-01-31 00:05] LABS: Bedside Glucose 210 mg/dL (70-110)
[2019-01-31] MEDS: Ipratropium/Albuterol Sulfate 3 ML AMPUL.NEB INHALATION ×5 (02:24→19:07)
[2019-01-31] MEDS: HEPARIN/D5w 25,000 UNITS 25,000 UNITS/250 ML IV.SOLN. 12 UNITS IV (02:37)
[2019-01-31 03:40] LABS: Partial Thromboplast Time 60.4 Seconds (24.1-36.2)
[2019-01-31 04:46] LABS: Allen Test POS; Base Excess 21 mmol/L (-2 to +2); Bicarbonate 44.3 mmol/L (22-26); Blood Gas Specimen Type ART; FI02 55; Mode APRV; O2 Delivery Device Vent; PEEP 0; PO2 64 mmHG (75-100); SITE L Radial; SO2 93 % (95-99); T LOW 0.5; Time Given 435; Total Carbon Dioxide 46 mmol/L; pCO2 56.4 mmHg (35-45)
[2019-01-31] MEDS: Propofol 10MG/Ml 1,000 MG/100 ML Bottle 9.4 MG CONT INF ×2 (05:20→23:59)
[2019-01-31] MEDS: 0.9% Saline Lock 10 ML Syringe IV ×3 (05:21→18:44)
[2019-01-31] MEDS: Gabapentin 300 MG Capsule GT ×3 (05:21→21:03)
[2019-01-31] MEDS: Furosemide 40 MG/4 ML Vial IV (05:21)
[2019-01-31] MEDS: guaiFENesin 10 ML UDC (200MG/10ML) GT ×4 (05:21→23:09)
[2019-01-31] MEDS: Vital AF 1.2 Cal Liquid 1,000 ML 60 ML GT (05:27)
[2019-01-31] MEDS: Insulin Lispro 100 UNIT/ML INSULN.PEN SC ×4 (05:40→23:08)
[2019-01-31 05:56] LABS: Bedside Glucose 205 mg/dL (70-110)
[2019-01-31 06:19] LABS: Hematocrit 35.4 % (40-54); Hemoglobin 11.4 g/dL (13.0-16.5); Mean Corp Hgb Conc 32.2 g/dL (32-36); Mean Corpuscular Volume 105.7 fL (80-94); Mean Platelet Vol. 11.8 fl (6.2-12.0); POSITIVE COUNT YES; POSITIVE MORPHOLOGY YES; Platelet Count 134 K/mm3 (150-450); RBC Distribution Width CV 13.9 % (11.6-14.6); RBC Distribution Width SD 53.8 fl (35.1-43.9); Red Blood Count 3.35 M/mm3 (4.6-6.2); White Blood Count 13.4 K/mm3 (4.4-11.0)
[2019-01-31 06:20] LABS: Differential Indicated MANUAL DIFF
[2019-01-31 06:30] LABS: ALB/GLOB Ratio 0.6 RATIO (0.9-2.4); AST(SGOT) 20 U/L (15-37); Alanine Aminotransfer ALT/SGPT 19 U/L (16-61); Albumin, Serum 2.1 g/dL (3.2-5.0); Alkaline Phosphatase 53 U/L (45-117); Anion Gap 4 (5-15); BUN 32 mg/dL (7-18); BUN/Creat Ratio 63.9 RATIO (10-20); Calcium,Total 8.6 mg/dL (8.5-10.1); Chloride 90 mmol/L (98-107); EST Glomerular Filtration Rate 179 mL/min (>60); Est Glom Filt Rate - Afr Amer 217 mL/min (>60); Estimated Creatinine Clearance 155.15 ml/min; Globulin 3.8 g/dL (2.2-4.2); Glucose 204 mg/dL (74-106); Potassium 4.7 mmol/L (3.5-5.1); Protein, Total 5.9 g/dL (6.4-8.2); Sodium Level 134 mmol/L (136-145)
[2019-01-31] MEDS: Furosemide 20 MG/2 ML VIAL IV (06:48)
[2019-01-31 06:58] LABS: Lymphocyte 10 % (19-41); Macrocytosis 2+; Metamyelocyte 4 % (0-1); Monocyte 7 % (0-10); Neutrophil-Band 3 % (0-5); Neutrophil-Segmented 76 % (47-70); Platelet Estimate ADEQUATE (ADEQ); Red Cell Morphology N CYTIC NORMAL (NORM C&C); Total Cells Counted 100 (MANUAL DIFF)
[2019-01-31 06:59] LABS: Absolute Lymphocyte Count 1.34 X10^3/uL (0.83-4.51); Absolute Neutrophil Count 10.6 X10^3/uL (2.0-7.7); Lymphocyte # 1.34 X10^3/ul (4.0); Neutrophil # 10.59 X10^3/uL (2.7-7.7)
--- NOTE | 2019-01-31 07:11 | PCM.PN.INT ---
Subjective: Patient did okay overnight. Patient did have some decreased saturations requiring increase in P high to 22. Patient is tolerating tube feeds. Patient did receive diuretic therapy, but overall is fluid neutral. No fevers have been reported overnight. General: - - Intubated and sedated. Anasarca noted. HEENT: Atraumatic, PERRLA, EOMI, Normocephalic, - - No scleral icterus or injection noted Oral: Moist Mucosa, No Gingival or Mucosal Lesions/ Ulcerations Neck: Supple, No JVD, No Nodes, Trachea Midline Lungs: No rhonchi, No wheeze, Diminished, Rales, - - Symmetric expansion. No dullness to percussion. Cardiovascular: Regular rate, Regular Rhythm, Normal S1, Normal S2, No murmurs, No rub noted, No Gallop Abdomen: Bowel Sounds Present, Soft, Non Tender, Non-Distended, Obese Extremities: No clubbing, No cyanosis, Edema Skin: No rashes, No breakdown Musculoskeletal: No Tenderness to Palpation of Joints or Extremities Lymphatic: No Cervical, Supraclavicular, or Inguinal Adenopathy Neurological: Cranial nerves II-XII grossly intact, Neuro grossly intact Psych/Mental Status: Flat Affect Vital Signs Temp Pulse Resp BP Pulse Ox 37.2 C 82 12 104/72 89 01/31/19 06:00 01/31/19 06:00 01/31/19 06:00 01/31/19 06:00 01/31/19 06:00 Oxygen Flow Rate (L/min) 6 Oxygen Delivery Method Mechanical Ventilator Weight: 103.7 kg Body Mass Index (BMI) 31.9 Intake and Output for Last 24 Hours 01/29/19 01/30/19 01/31/19 23:59 23:59 23:59 Intake Total 3964.67 / 4743.57 4105.20 / 4122.10 1022.12 / 1022.12 Output Total 3475 / 3925 4350 / 4350 500 / 500 Balance 489.67 / 818.57 -244.80 / -227.90 522.12 / 522.12 Labs (Last 48 Hours) 01/26/19 01/26/19 01/29/19 10:24 12:55 07:30 WBC RBC Hgb Hct MCV MCH MCHC RDW Std Deviation RDW Coeff of Mohsen Plt Count MPV Neut % (Auto) Absolute Neuts (auto) Absolute Lymphs (auto) Total Counted Neutrophils % (Manual) Band Neutrophils % Lymphocytes % (Manual) Monocytes % (Manual) Metamyelocytes % Nucleated RBCs/100 WBC Diff Path Review Reviewed Platelet Estimate RBC Morphology Macrocytosis PT INR APTT 55.9 H Specimen Type Sample Site pH Bicarbonate Actual POC Total CO2 Base Excess O2 Saturation O2 % ABG pCO2 ABG pO2 Dariusz Test O2 Delivery Device Vent Mode POC PEEP Pressure High Pressure Low Time High Time Low Blood Gas Notified Whom Blood Gas Notified Time Sodium Potassium Chloride Carbon Dioxide Anion Gap BUN Creatinine Estim Creat Clear Calc Est GFR (MDRD) Af Amer Est GFR (MDRD) Non-Af BUN/Creatinine Ratio Glucose Calcium Total Bilirubin AST ALT Alkaline Phosphatase Total Protein Albumin Globulin Albumin/Globulin Ratio Miscellaneous Test POC Glucose 01/29/19 01/29/19 01/29/19 07:30 07:54 11:03 WBC RBC Hgb Hct MCV MCH MCHC RDW Std Deviation RDW Coeff of Mohsen Plt Count MPV Neut % (Auto) Absolute Neuts (auto) Absolute Lymphs (auto) Total Counted Neutrophils % (Manual) Band Neutrophils % Lymphocytes % (Manual) Monocytes % (Manual) Metamyelocytes % Nucleated RBCs/100 WBC Diff Path Review Platelet Estimate RBC Morphology Macrocytosis PT INR APTT Specimen Type ART Sample Site L Radial pH 7.31 L Bicarbonate Actual 33.7 H POC Total CO2 36 Base Excess 7 H O2 Saturation 96 O2 % 100 ABG pCO2 67.3 H* ABG pO2 92 Dariusz Test POS O2 Delivery Device Vent Vent Mode APRV POC PEEP Pressure High 20.0 Pressure Low 0.0 Time High 4.0 Time Low 0.5 Blood Gas Notified Whom ICU MD Blood Gas Notified Time 748 Sodium 136 Potassium 6.0 H* Chloride 101 Carbon Dioxide 31.0 Anion Gap 4 L BUN 20 H Creatinine 0.49 L Estim Creat Clear Calc 158.31 Est GFR (MDRD) Af Amer 221 Est GFR (MDRD) Non-Af 183 BUN/Creatinine Ratio 40.7 H Glucose 191 H Calcium 8.5 Total Bilirubin AST ALT Alkaline Phosphatase Total Protein Albumin Globulin Albumin/Globulin Ratio Miscellaneous Test POC Glucose 216 H 01/29/19 01/29/19 01/29/19 14:10 14:10 17:29 WBC RBC Hgb Hct MCV MCH MCHC RDW Std Deviation RDW Coeff of Mohsen Plt Count MPV Neut % (Auto) Absolute Neuts (auto) Absolute Lymphs (auto) Total Counted Neutrophils % (Manual) Band Neutrophils % Lymphocytes % (Manual) Monocytes % (Manual) Metamyelocytes % Nucleated RBCs/100 WBC Diff Path Review Platelet Estimate RBC Morphology Macrocytosis PT INR APTT 46.2 H Specimen Type Sample Site pH Bicarbonate Actual POC Total CO2 Base Excess O2 Saturation O2 % ABG pCO2 ABG pO2 Dariusz Test O2 Delivery Device Vent Mode POC PEEP Pressure High Pressure Low Time High Time Low Blood Gas Notified Whom Blood Gas Notified Time Sodium Potassium 5.5 H Chloride Carbon Dioxide Anion Gap BUN Creatinine Estim Creat Clear Calc Est GFR (MDRD) Af Amer Est GFR (MDRD) Non-Af BUN/Creatinine Ratio Glucose Calcium Total Bilirubin AST ALT Alkaline Phosphatase Total Protein Albumin Globulin Albumin/Globulin Ratio Miscellaneous Test POC Glucose 211 H 01/29/19 01/29/19 01/29/19 20:42 20:55 21:20 WBC RBC Hgb Hct MCV MCH MCHC RDW Std Deviation RDW Coeff of Mohsen Plt Count MPV Neut % (Auto) Absolute Neuts (auto) Absolute Lymphs (auto) Total Counted Neutrophils % (Manual) Band Neutrophils % Lymphocytes % (Manual) Monocytes % (Manual) Metamyelocytes % Nucleated RBCs/100 WBC Diff Path Review Platelet Estimate RBC Morphology Macrocytosis PT INR APTT Cancelled 57.5 H Specimen Type Sample Site pH Bicarbonate Actual POC Total CO2 Base Excess O2 Saturation O2 % ABG pCO2 ABG pO2 Dariusz Test O2 Delivery Device Vent Mode POC PEEP Pressure High Pressure Low Time High Time Low Blood Gas Notified Whom Blood Gas Notified Time Sodium Potassium Chloride Carbon Dioxide Anion Gap BUN Creatinine Estim Creat Clear Calc Est GFR (MDRD) Af Amer Est GFR (MDRD) Non-Af BUN/Creatinine Ratio Glucose Calcium Total Bilirubin AST ALT Alkaline Phosphatase Total Protein Albumin Globulin Albumin/Globulin Ratio Miscellaneous Test POC Glucose 236 H 01/30/19 01/30/19 01/30/19 00:42 02:45 05:10 WBC RBC Hgb Hct MCV MCH MCHC RDW Std Deviation RDW Coeff of Mohsen Plt Count MPV Neut % (Auto) Absolute Neuts (auto) Absolute Lymphs (auto) Total Counted Neutrophils % (Manual) Band Neutrophils % Lymphocytes % (Manual) Monocytes % (Manual) Metamyelocytes % Nucleated RBCs/100 WBC Diff Path Review Platelet Estimate RBC Morphology Macrocytosis PT INR APTT 57.9 H Specimen Type Sample Site pH Bicarbonate Actual POC Total CO2 Base Excess O2 Saturation O2 % ABG pCO2 ABG pO2 Dariusz Test O2 Delivery Device Vent Mode POC PEEP Pressure High Pressure Low Time High Time Low Blood Gas Notified Whom Blood Gas Notified Time Sodium 136 Potassium 5.3 H Chloride 96 L Carbon Dioxide 36.0 H Anion Gap 4 L BUN 28 H Creatinine 0.54 L Estim Creat Clear Calc 143.65 Est GFR (MDRD) Af Amer 201 Est GFR (MDRD) Non-Af 166 BUN/Creatinine Ratio 52.3 H Glucose 196 H Calcium 8.4 L Total Bilirubin AST ALT Alkaline Phosphatase Total Protein Albumin Globulin Albumin/Globulin Ratio Miscellaneous Test POC Glucose 221 H 01/30/19 01/30/19 01/30/19 05:10 05:10 05:35 WBC 10.7 RBC 3.20 L Hgb 10.8 L Hct 33.4 L MCV 104.4 H MCH 33.8 H MCHC 32.3 RDW Std Deviation 52.7 H RDW Coeff of Mohsen 13.8 Plt Count 110 L MPV 11.5 Neut % (Auto) Not Reportable Absolute Neuts (auto) 8.0 H Absolute Lymphs (auto) 1.71 Total Counted 100 Neutrophils % (Manual) 73 H Band Neutrophils % 2 Lymphocytes % (Manual) 16 L Monocytes % (Manual) 5 Metamyelocytes % 4 H Nucleated RBCs/100 WBC 2 Diff Path Review Reviewed Platelet Estimate ADEQUATE RBC Morphology NORM C+C Macrocytosis PT 12.7 INR 1.0 APTT 51.2 H Specimen Type Sample Site pH Bicarbonate Actual POC Total CO2 Base Excess O2 Saturation O2 % ABG pCO2 ABG pO2 Dariusz Test O2 Delivery Device Vent Mode POC PEEP Pressure High Pressure Low Time High Time Low Blood Gas Notified Whom Blood Gas Notified Time Sodium Potassium Chloride Carbon Dioxide Anion Gap BUN Creatinine Estim Creat Clear Calc Est GFR (MDRD) Af Amer Est GFR (MDRD) Non-Af BUN/Creatinine Ratio Glucose Calcium Total Bilirubin AST ALT Alkaline Phosphatase Total Protein Albumin Globulin Albumin/Globulin Ratio Miscellaneous Test POC Glucose 182 H 01/30/19 01/30/19 01/30/19 07:22 12:47 14:45 WBC RBC Hgb Hct MCV MCH MCHC RDW Std Deviation RDW Coeff of Mohsen Plt Count MPV Neut % (Auto) Absolute Neuts (auto) Absolute Lymphs (auto) Total Counted Neutrophils % (Manual) Band Neutrophils % Lymphocytes % (Manual) Monocytes % (Manual) Metamyelocytes % Nucleated RBCs/100 WBC Diff Path Review Platelet Estimate RBC Morphology Macrocytosis PT INR APTT 71.0 H Specimen Type ART Sample Site L Radial pH 7.47 H Bicarbonate Actual 41.7 H POC Total CO2 43 Base Excess 18 H O2 Saturation 93 L O2 % 60 ABG pCO2 56.8 H ABG pO2 66 L Dariusz Test O2 Delivery Device Vent Vent Mode APRV POC PEEP Pressure High 20.0 Pressure Low 0.0 Time High 4.0 Time Low 0.5 Blood Gas Notified Whom ICU MD Blood Gas Notified Time 721 Sodium Potassium Chloride Carbon Dioxide Anion Gap BUN Creatinine Estim Creat Clear Calc Est GFR (MDRD) Af Amer Est GFR (MDRD) Non-Af BUN/Creatinine Ratio Glucose Calcium Total Bilirubin AST ALT Alkaline Phosphatase Total Protein Albumin Globulin Albumin/Globulin Ratio Miscellaneous Test POC Glucose 217 H 01/30/19 01/30/19 01/30/19 16:40 21:00 23:31 WBC RBC Hgb Hct MCV MCH MCHC RDW Std Deviation RDW Coeff of Mohsen Plt Count MPV Neut % (Auto) Absolute Neuts (auto) Absolute Lymphs (auto) Total Counted Neutrophils % (Manual) Band Neutrophils % Lymphocytes % (Manual) Monocytes % (Manual) Metamyelocytes % Nucleated RBCs/100 WBC Diff Path Review Platelet Estimate RBC Morphology Macrocytosis PT INR APTT 71.0 H Specimen Type Sample Site pH Bicarbonate Actual POC Total CO2 Base Excess O2 Saturation O2 % ABG pCO2 ABG pO2 Dariusz Test O2 Delivery Device Vent Mode POC PEEP Pressure High Pressure Low Time High Time Low Blood Gas Notified Whom Blood Gas Notified Time Sodium Potassium Chloride Carbon Dioxide Anion Gap BUN Creatinine Estim Creat Clear Calc Est GFR (MDRD) Af Amer Est GFR (MDRD) Non-Af BUN/Creatinine Ratio Glucose Calcium Total Bilirubin AST ALT Alkaline Phosphatase Total Protein Albumin Globulin Albumin/Globulin Ratio Miscellaneous Test POC Glucose 200 H 210 H 01/31/19 01/31/19 01/31/19 03:10 03:10 03:10 WBC 13.4 H RBC 3.35 L Hgb 11.4 L Hct 35.4 L MCV 105.7 H MCH 34.0 H MCHC 32.2 RDW Std Deviation 53.8 H RDW Coeff of Mohsen 13.9 Plt Count 134 L MPV 11.8 Neut % (Auto) Not Reportable Absolute Neuts (auto) 10.6 H Absolute Lymphs (auto) 1.34 Total Counted 100 Neutrophils % (Manual) 76 H Band Neutrophils % 3 Lymphocytes % (Manual) 10 L Monocytes % (Manual) 7 Metamyelocytes % 4 H Nucleated RBCs/100 WBC Diff Path Review May foll Platelet Estimate ADEQUATE RBC Morphology N CYTIC Macrocytosis 2+ PT INR APTT 60.4 H Specimen Type Sample Site pH Bicarbonate Actual POC Total CO2 Base Excess O2 Saturation O2 % ABG pCO2 ABG pO2 Dariusz Test O2 Delivery Device Vent Mode POC PEEP Pressure High Pressure Low Time High Time Low Blood Gas Notified Whom Blood Gas Notified Time Sodium 134 L Potassium 4.7 Chloride 90 L Carbon Dioxide 40.0 H Anion Gap 4 L BUN 32 H Creatinine 0.50 L Estim Creat Clear Calc 155.15 Est GFR (MDRD) Af Amer 217 Est GFR (MDRD) Non-Af 179 BUN/Creatinine Ratio 63.9 H Glucose 204 H Calcium 8.6 Total Bilirubin 0.50 AST 20 ALT 19 Alkaline Phosphatase 53 Total Protein 5.9 L Albumin 2.1 L Globulin 3.8 Albumin/Globulin Ratio 0.6 L Miscellaneous Test POC Glucose 01/31/19 01/31/19 04:37 05:40 WBC RBC Hgb Hct MCV MCH MCHC RDW Std Deviation RDW Coeff of Mohsen Plt Count MPV Neut % (Auto) Absolute Neuts (auto) Absolute Lymphs (auto) Total Counted Neutrophils % (Manual) Band Neutrophils % Lymphocytes % (Manual) Monocytes % (Manual) Metamyelocytes % Nucleated RBCs/100 WBC Diff Path Review Platelet Estimate RBC Morphology Macrocytosis PT INR APTT Specimen Type ART Sample Site L Radial pH 7.50 H Bicarbonate Actual 44.3 H POC Total CO2 46 Base Excess 21 H O2 Saturation 93 L O2 % 55 ABG pCO2 56.4 H ABG pO2 64 L Dariusz Test POS O2 Delivery Device Vent Vent Mode APRV POC PEEP 0 Pressure High 22.0 Pressure Low 0.0 Time High 4.0 Time Low 0.5 Blood Gas Notified Whom ICU MD Blood Gas Notified Time 435 Sodium Potassium Chloride Carbon Dioxide Anion Gap BUN Creatinine Estim Creat Clear Calc Est GFR (MDRD) Af Amer Est GFR (MDRD) Non-Af BUN/Creatinine Ratio Glucose Calcium Total Bilirubin AST ALT Alkaline Phosphatase Total Protein Albumin Globulin Albumin/Globulin Ratio Miscellaneous Test POC Glucose 205 H Microbiology 01/26/19 10:45 Sputum, Induced/Lukens Gram Stain - Final 01/26/19 10:45 Sputum, Induced/Lukens Respiratory Culture - Final Haemophilus influenzae Streptococcus pneumoniae 01/23/19 18:00 Blood Culture (Wb) - Anticubital Left Blood Culture - Final No growth in 5 days. 01/23/19 18:10 Blood Culture (Wb) - Right Forearm Blood Culture - Final No growth in 5 days. Medical Necessity - Tobacco Use Smoking Status: Current every day smoker Tobacco Use: Cigarettes Assessment/Plan All Active Problems CVA (cerebral vascular accident) (Acute) Slurred speech (Acute) COPD exacerbation (Acute) RECOMMENDATIONS: 1. Continue APRV ventilation, expand T high to 5.5 seconds, wean oxygen as tolerated 2. Continue Unasyn to complete a 10-day course 3. Increase diuretic therapy 4. Continue to wean FiO2 and PPI to maintain an oxygen saturation at or above 90%. 5. Continue bronchodilators. Transition to prednisone therapy 6. Continue tube feeds as ordered. 7. Continue appropriate ICU prophylaxis. IMPRESSIONS: 1. Acute on chronic hypoxemic respiratory failure secondary to presumed aspiration pneumonia The patient was emergently transferred to the ICU on the morning of January 26, where he did require intubation due to impending respiratory failure following an aspiration event. Patient now with multiple etiologies of hypoxic respiratory failure including COPD, H. influenzae and small pulmonary emboli. Patient is on anticoagulation. Patient is now alkalotic with increase in P high secondary to oxygenation. We will expand T high to decrease mandatory minute ventilation and facilitate spontaneous respiration. Diuretic therapy will be increased. 2. Septic shock secondary to presumed aspiration pneumonia Patient been able to come off of pressor therapy at this point. We will continue with antibiotics pending sensitivities for H. influenzae and pneumococcus. Will schedule diuresis given adequate blood pressures 3. COPD with exacerbation Inciting etiology appears to be aspiration event and possible pulmonary emboli. Continue current supportive measures as noted above along with bronchodilators and steroids. Wean oxygen as tolerated. Patient will be transition to prednisone therapy 4. Slurred speech Intubated and sedated. Will need to reevaluate once patient is liberated from the ventilator. 5. History of venous thrombi embolic disease/hypertension/hyperlipidemia/seizure disorder/continuous tobacco dependency Complicates care, management, recovery and prognosis. Hold home antihypertensives and diuretics for now. Continue antiepileptics. 6. Hyperkalemia Improving with diuresis. Patient reportedly did not have a hemolyzed sample, but has isolated hyperkalemia. Renal function appears to be intact at this time. We will hold off on giving acute intervention. Significant acidosis was not noted on ABG. TIME: 38 minutes of critical care time, independent of procedures, was spent addressing the patient's acute on chronic hypoxemic respiratory failure, septic shock secondary to presumed aspiration pneumonia, COPD with exacerbation, review of all data and collaboration with the care team. (6 AM to 7 AM) Code Visit [id number]: [id number] Critical care first hour
[2019-01-31] MEDS: fentaNYL drip 100 ML 7.5 MCG IV ×2 (08:16→20:57)
--- NOTE | 2019-01-31 08:53 | PN_ITS ---
Patient Problems: Active and Suspected Problems CVA (cerebral vascular accident) (Acute) Slurred speech (Acute) Subjective: Intubated and sedated Vitals/I&O's: Vital Signs Temp Pulse Resp BP Pulse Ox 99 F 79 12 104/72 90 01/31/19 06:00 01/31/19 07:00 01/31/19 06:53 01/31/19 06:00 01/31/19 06:50 Oxygen Flow Rate (L/min) 6 Oxygen Delivery Method Mechanical Ventilator Weight: 228 lb 9.91 oz Body Mass Index (BMI) 31.9 Intake and Output for Last 24 Hours 01/29/19 01/30/19 01/31/19 23:59 23:59 23:59 Intake Total 3964.67 / 4743.57 4105.20 / 4122.10 1022.12 / 1022.12 Output Total 3475 / 3925 4350 / 4350 500 / 500 Balance 489.67 / 818.57 -244.80 / -227.90 522.12 / 522.12 General: - - Intubated and sedated HEENT: Atraumatic, PERRLA, Normocephalic, - - Intubated Oral: Moist Mucosa Neck: Supple, No JVD Lungs: Diminished, Rhonchi, Wheezes Cardiovascular: Regular rate, Regular Rhythm, Normal S1, Normal S2, No murmurs Abdomen: Soft, Non-Distended, No Hepato-splenomegaly Extremities: Capillary Refill Less than 3 Seconds, Edema Skin: No rashes, No breakdown Neurological: - - Intubated and sedated Psych/Mental Status: - - Intubated and sedated Microbiology Past 72 Hours 01/26/19 10:45 Sputum, Induced/Lukens Gram Stain - Final 01/26/19 10:45 Sputum, Induced/Lukens Respiratory Culture - Final Haemophilus influenzae Streptococcus pneumoniae 01/23/19 18:00 Blood Culture (Wb) - Anticubital Left Blood Culture - Final No growth in 5 days. 01/23/19 18:10 Blood Culture (Wb) - Right Forearm Blood Culture - Final No growth in 5 days. 01/26/19 12:55 Urine Catheter - [place] Urine Culture - Final Culture exhibits no growth. Laboratory Results 01/30/19 05:10: Diff Path Review Reviewed 01/30/19 12:47: POC Glucose 217 H 11/26/19 14:45: APTT 71.0 H 01/30/19 16:40: POC Glucose 200 H 01/30/19 21:00: APTT 71.0 H 01/30/19 23:31: POC Glucose 210 H 01/31/19 03:10: APTT 60.4 H 01/31/19 03:10: WBC 13.4 H, RBC 3.35 L, Hgb 11.4 L, Hct 35.4 L, MCV 105.7 H, MCH 34.0 H, MCHC 32.2, RDW Std Deviation 53.8 H, RDW Coeff of Mohsen 13.9, Plt Count 134 L, MPV 11.8, Neut % (Auto) Not Reportable, Absolute Neuts (auto) 10.6 H, Absolute Lymphs (auto) 1.34, Total Counted 100, Neutrophils % (Manual) 76 H, Band Neutrophils % 3, Lymphocytes % (Manual) 10 L, Monocytes % (Manual) 7, Metamyelocytes % 4 H, Diff Path Review July, Platelet Estimate ADEQUATE, RBC Morphology N CYTIC, Macrocytosis 2+ 01/31/19 03:10: Sodium 134 L, Potassium 4.7, Chloride 90 L, Carbon Dioxide 40.0 H, Anion Gap 4 L, BUN 32 H, Creatinine 0.50 L, Estim Creat Clear Calc 155.15, Est GFR (MDRD) Af Amer 217, Est GFR (MDRD) Non-Af 179, BUN/Creatinine Ratio 63.9 H, Glucose 204 H, Calcium 8.6, Total Bilirubin 0.50, AST 20, ALT 19, Alkaline Phosphatase 53, Total Protein 5.9 L, Albumin 2.1 L, Globulin 3.8, Albumin/Globulin Ratio 0.6 L 01/31/19 04:37: Specimen Type ART, Sample Site L Radial, pH 7.50 H, Bicarbonate Actual 44.3 H, POC Total CO2 46, Base Excess 21 H, O2 Saturation 93 L, O2 % 55, ABG pCO2 56.4 H, ABG pO2 64 L, Dariusz Test POS, O2 Delivery Device Vent, Vent Mode APRV, POC PEEP 0, Pressure High 22.0, Pressure Low 0.0, Time High 4.0, Time Low 0.5, Blood Gas Notified Whom ICU , Blood Gas Notified Time 435 01/31/19 05:40: POC Glucose 205 H Current Medications Acetaminophen (Tylenol) 650 mg PO Q6H PRN PRN PRN Reason: Non-cardiac pain (4-12/14) Last Admin: 01/25/19 15:13 Dose: 650 mg Documented by: Acetaminophen (Tylenol Liquid) 650 mg GT Q6H PRN PRN PRN Reason: TEMP>101 Al Hydroxide/Mg Hydroxide (Mylanta Ii) 15 - 30 ml PO Q4H PRN PRN PRN Reason: INDIGESTION Albuterol Sulfate (Ventolin Aerosols) 2.5 mg INHALATION Q2H PRN PRN PRN Reason: dyspnea, wheezing Last Admin: 01/26/19 09:26 Dose: 2.5 mg Documented by: Albuterol/Ipratropium (Duoneb) 3 ml INHALATION Q4HWA.RT [facility] Last Admin: 01/31/19 06:53 Dose: 3 ml Documented by: Atorvastatin Calcium (Lipitor) 80 mg GT QHS [facility] Last Admin: 01/30/19 22:03 Dose: 80 mg Documented by: Chlorhexidine Gluconate () 15 ml PO BID [facility] Last Admin: 01/30/19 22:06 Dose: 15 ml Documented by: Chlorhexidine Gluconate () 1 each TOPICAL DAILY [facility] Last Admin: 01/30/19 05:33 Dose: 1 each Documented by: Dextrose (D50w Syringe) 0 gm IV X1 PRN; Protocol PRN Reason: Hypoglycemia Divalproex Sodium (Depakote Er) 500 mg PO 0700,1300 [facility] Last Admin: 01/26/19 13:30 Dose: Not Given Documented by: Divalproex Sodium (Depakote Er) 1,000 mg PO QHS [facility] Last Admin: 01/25/19 21:41 Dose: 1,000 mg Documented by: Enoxaparin Sodium (Lovenox) 100 mg SC Q12@0600,1800 [facility] Famotidine (Pepcid) 20 mg GT BID [facility] Last Admin: 01/30/19 22:03 Dose: 20 mg Documented by: Furosemide (Lasix) 60 mg IV Q8 [facility] Gabapentin (Neurontin) 300 mg GT TID [facility] Last Admin: 01/31/19 05:21 Dose: 300 mg Documented by: Glucagon () 1 mg IM .X1 PRN PRN Reason: Hypoglycemia Guaifenesin (Robitussin) 10 ml GT Q6H PRN Guaifenesin (Robitussin) 10 ml GT Q6H [facility] Last Admin: 01/31/19 05:21 Dose: 10 ml Documented by: Heparin Sodium (Porcine) (Heparin Na) 0 unit IV UD PRN; Protocol Sodium Chloride () 250 mls @ 15 mls/hr IV .[id number] PRN PRN Reason: Saline Flush Last Infusion: 01/31/19 06:09 Dose: 15 mls/hr Documented by: Enteral Nutritional Formula (Vital Af 1.2 Truong Liquid) 1,000 mls @ 60 mls/hr GT .[id number] [facility] Last Admin: 01/31/19 05:27 Dose: 60 mls/hr Documented by: Fentanyl () 100 mls @ 15 mls/hr IV UD [facility]; Protocol Last Admin: 01/31/19 08:16 Dose: 75 mcg/hr, 7.5 mls/hr Documented by: Propofol (Diprivan) 1,000 mg in 100 mls @ 18.882 mls/hr CONT INF .Q5H18M [facility]; Protocol Last Titration: 01/31/19 06:12 Dose: 15 mcg/kg/min, 9.4 mls/hr Documented by: Ampicillin Sodium/Sulbactam (Sodium 3 gm/ Sodium Chloride) 112 mls @ 150 mls/hr IV Q6 [facility] Stop: 02/04/19 18:01 Last Infusion: 01/31/19 06:09 Dose: Infused Documented by: Heparin Sodium/Dextrose () 25,000 units in 250 mls @ 15 mls/hr IV .[id number] [facility]; Protocol Stop: 01/31/19 16:00 Insulin Glargine (Lantus (Bkc)) 5 units SC BID [facility] Last Admin: 01/30/19 23:32 Dose: 5 u Documented by: Insulin Human Lispro (Humalog Kwikpen (Bkc)) 0 unit SC Q6 [facility]; Protocol Last Admin: 01/31/19 05:40 Dose: 1 u Documented by: Magnesium Hydroxide (Milk Of Magnesia) 30 ml GT DAILY PRN PRN Reason: Constipation Last Admin: 01/30/19 09:33 Dose: 30 ml Documented by: Nicotine (Nicoderm Cq (Pbkc)) 21 mg TRANSDERM. DAILY [facility] Last Admin: 01/30/19 09:37 Dose: 21 mg Documented by: Nitroglycerin (Nitrostat) 0.4 mg SUBLINGUAL Q5M PRN PRN Reason: CARDIAC/CHEST PAIN Ondansetron HCl (Zofran) 4 mg IV Q8H PRN PRN PRN Reason: NAUSEA/VOMITING Polyethylene Glycol (Miralax) 17 gm GT BID [facility] Last Admin: 01/30/19 21:51 Dose: 17 gm Documented by: Prednisone () 40 mg PO DAILY@0800 [facility] Senna/Docusate Sodium (Senokot-S, Lila-Colace) 2 tablet GT BID [facility] Last Admin: 01/30/19 21:51 Dose: 2 tablet Documented by: Sodium Chloride () 10 - 40 ml IV UD PRN PRN Reason: SALINE FLUSH Last Admin: 01/31/19 05:21 Dose: 10 ml Documented by: Throat Lozenges (Cepacol Sore Throat Lozenge) 1 lozenge MUCOUS MEM Q2H PRN PRN PRN Reason: COUGH Valproic Acid (Depakene) 500 mg GT 4X/DAY [facility] Last Admin: 01/30/19 22:04 Dose: 500 mg Documented by: STROKE Vital Signs/Narrative: Vital Signs Temp Pulse Resp BP Pulse Ox 01/31/19 07:00 79 01/31/19 06:53 83 12 01/31/19 06:50 85 12 90 01/31/19 06:00 99 F 82 12 104/72 89 01/31/19 05:00 86 16 90/53 L 92 Medical Necessity - Tobacco Use Smoking Status: Current every day smoker Tobacco Use: Cigarettes Assessment/Plan All Active Problems CVA (cerebral vascular accident) (Acute) Slurred speech (Acute) COPD exacerbation (Acute) 1. Acute on chronic hypoxic respiratory failure and septic shock secondary to aspiration/COPD exacerbation/PE -Initial presentation was with a COPD exacerbation and possible viral URI, and then he had an aspiration event which has led to his intubation and findings of septic shock necessitating Levophed -Pressors have been off since 01/29/19 -Appreciate ICU assistance -Continue with vent management -He is positive about 14 L, c/w diuresis -Switch heparin to lovenox to decrease fluid intake -DC abx, course complete 2. Slurred speech -Neurology was consulted -MRIs and MRAs of the head and neck were negative for a stroke -Echo was unremarkable with an EF of 65% and stage I diastolic dysfunction -Lovenox, will hold aspirin in the meantime, continue with statin 3. HTN/HLD -Given that he was on pressor support, will hold all blood home blood pressure medications -Monitor and adjust home medications as necessary -Continue with Lipitor 4. History of DVT -At the point of discharge we will plan on discharge on Eliquis given that he is also on Depakote for history of seizures -Given his history of DVT and now a PE, will likely need to be on lifelong anticoagulation 5. History of seizure disorder -Continue with Depakote as able -Appreciate neurology assistance DVT: Lovenox Code Visit Inpatient E&M: 45933 Subs Hosp L2
--- NOTE | 2019-01-31 09:51 | CASEMGMT ---
SW participated in ICU rounds this morning, pt remains on the ventilator at this time. SW will continue to follow for any social service needs. ERICKA Easton
[2019-01-31] MEDS: Chlorhexidine 15 ML PO ×2 (10:09→21:08)
[2019-01-31] MEDS: CHLORHEXIDINE GLUC 2% CLOTH 1 EACH TOWELETTE TOPICAL (10:09)
[2019-01-31] MEDS: Polyethylene Glycol 3350 17 GM PACKET GT ×2 (10:15→21:02)
[2019-01-31] MEDS: Senna/Docusate Sodium 1 Tablet 2 TABLET GT ×2 (10:16→21:02)
[2019-01-31] MEDS: Famotidine 20 MG Tablet GT ×2 (10:16→21:02)
[2019-01-31] MEDS: predniSONE 20 MG Tablet 40 MG PO (13:33)
[2019-01-31 13:45] LABS: Bedside Glucose 183 mg/dL (70-110)
[2019-01-31] MEDS: Propofol 10MG/Ml 1,000 MG/100 ML Bottle 6.3 MG CONT INF (14:36)
[2019-01-31 14:37] LABS: Pathologist Review Reviewed
[2019-01-31] MEDS: Furosemide 100 MG/10 ML Vial 60 MG IV ×2 (14:37→21:03)
--- NOTE | 2019-01-31 16:18 | CHAPLAIN ---
Type of Pastoral Visit ___ Initial Visit _x__ Follow-up Visit ___ On-call Visit ___ General Patient Visit ___ Spiritual Assessment ___ Family Conference ___ Bereavement ___ Rapid Response ___ Code Blue ___ Other (describe below) Pastoral Care Referral From _x__ Patient ___ Family ___ Nurse ___ Physician ___ Trumpet Teacher ___ Oil Dipper ___ Other (describe below) Sacrament/Intervention ___ Active listening ___ Anointing ___ Anabaptist ___ Bereavement ___ Communion ___ Gabby exploration ___ ___ Life review _x__ Prayer ___ Reconciliation ___ Sacrament of Sick _x__ Supportive presence ___ Wedding ___ Other (describe below) Pastoral Comments patient could open eyes and follow my statements and gave the thumbs up for prayer and support
[2019-01-31] MEDS: Enoxaparin 100 MG/ML Syringe SC (18:44)
[2019-01-31 19:00] LABS: Bedside Glucose 194 mg/dL (70-110)
[2019-01-31] MEDS: Atorvastatin Calcium 80 MG Tablet GT (21:03)
[2019-02-01] VITALS (39 sets, daily range): BP systolic 98–131; BP diastolic 55–86; PULSE 67–99; RESP 10–28; TEMP 37.2–37.8; O2SAT 88–98; BMI 31.9
[2019-02-01 00:11] LABS: Bedside Glucose 192 mg/dL (70-110)
[2019-02-01] MEDS: Ipratropium/Albuterol Sulfate 3 ML AMPUL.NEB INHALATION ×5 (03:10→18:50)
[2019-02-01 04:24] LABS: Hematocrit 33.5 % (40-54); Hemoglobin 10.8 g/dL (13.0-16.5); Mean Corp Hgb Conc 32.2 g/dL (32-36); Mean Corpuscular Hgb 34.2 pg (27.0-32.0); Mean Platelet Vol. 10.7 fl (6.2-12.0); POSITIVE COUNT YES; POSITIVE MORPHOLOGY YES; Platelet Count 131 K/mm3 (150-450); RBC Distribution Width CV 13.7 % (11.6-14.6); RBC Distribution Width SD 52.1 fl (35.1-43.9); Red Blood Count 3.16 M/mm3 (4.6-6.2)
[2019-02-01 04:28] LABS: Differential Indicated MANUAL DIFF; Partial Thromboplast Time 29.4 Seconds (24.1-36.2)
[2019-02-01 04:59] LABS: Anion Gap 4 (5-15); BUN 36 mg/dL (7-18); BUN/Creat Ratio 71.3 RATIO (10-20); Calcium,Total 8.6 mg/dL (8.5-10.1); Chloride 89 mmol/L (98-107); EST Glomerular Filtration Rate 177 mL/min (>60); Est Glom Filt Rate - Afr Amer 215 mL/min (>60); Estimated Creatinine Clearance 155.15 ml/min; Glucose 157 mg/dL (74-106); Potassium 3.6 mmol/L (3.5-5.1); Sodium Level 137 mmol/L (136-145)
[2019-02-01] MEDS: Insulin Lispro 100 UNIT/ML INSULN.PEN SC (05:11)
[2019-02-01] MEDS: Enoxaparin 100 MG/ML Syringe SC ×2 (05:11→17:28)
[2019-02-01] MEDS: Gabapentin 300 MG Capsule GT ×3 (05:11→21:13)
[2019-02-01] MEDS: Furosemide 100 MG/10 ML Vial 60 MG IV ×3 (05:11→21:12)
[2019-02-01] MEDS: guaiFENesin 10 ML UDC (200MG/10ML) GT ×4 (05:11→23:44)
[2019-02-01] MEDS: Vital AF 1.2 Cal Liquid 1,000 ML 60 ML GT (05:13)
[2019-02-01 05:22] LABS: Corrected WBC 12.5 K/mm3 (4.4-11.0); Lymphocyte 29 % (19-41); Metamyelocyte 6 % (0-1); Monocyte 10 % (0-10); Neutrophil-Band 4 % (0-5); Neutrophil-Segmented 51 % (47-70); Nucleated Red Bld Cells,Manual 7 % (0-5); Total Cells Counted 100 (MANUAL DIFF)
[2019-02-01 05:23] LABS: Macrocytosis 2+; Platelet Estimate ADEQUATE (ADEQ); Platelet Morphology CLUM; Polychromasia 2+
[2019-02-01 05:24] LABS: Absolute Lymphocyte Count 3.62 X10^3/uL (0.83-4.51); Absolute Neutrophil Count 6.9 X10^3/uL (2.0-7.7); Lymphocyte # 3.62 X10^3/ul (4.0); Neutrophil # 6.87 X10^3/uL (2.7-7.7)
[2019-02-01 05:36] LABS: Bedside Glucose 151 mg/dL (70-110)
--- NOTE | 2019-02-01 06:49 | PCM.PROGNOTE ---
Patient Problems: Active and Suspected Problems CVA (cerebral vascular accident) (Acute) Slurred speech (Acute) Subjective: Unasyn - stop date is 02/04/19 The patient is a 63-year-old male currently being treated for acute on chronic hypoxic respiratory failure secondary to aspiration pneumonia/acute exacerbation of COPD and pulmonary embolus. Also diagnosed with septic shock, off pressors since 01/29/2019. All events of the past 24 hours been reviewed. T-max over the past 24 hours was 99.6 Blood pressure is stable off pressors. Heart rate is within normal limits. He remains on mechanical ventilation and pulse ox is 88 to 90% on a 40% FiO2. Fluid balance on 01/31/2019 was -824. Fluid balance since admission is +10,882. The weight has decreased from 230 pounds and 13 ounces on 01/30/19 to 221 pounds and 9 ounces today with diuresis All lab was personally reviewed. White blood cell count remains mildly increased to 12.5. Hemoglobin is 10.8 and the platelets are stable at 131,000. Serum bicarb is increasing and today is 44. Creatinine is stable at 0.5 and the BUN is increasing and is 36 today. Acetylcholine receptor blocking antibody is pending. Blood sugars on 01/31/2019 ranged from 183-205. The fasting blood sugar today is 151. Sputum culture from 01/26/2019 grew Haemophilus influenza and Streptococcus pneumoniae. Blood cultures had no growth in 5 days. CTA from 01/28/2019 showed a small segmental pulmonary embolus in the right middle lobe with consolidation of both lower lobes. Echocardiogram from 01/23/2019 showed an EF of 65% with stage I diastolic dysfunction, moderately dilated right ventricle, bubble contrast study negative for right to left intra-atrial shunt. - Physical Exam Vitals/I&O's: Vital Signs Temp Pulse Resp BP Pulse Ox 99.0 F 87 21 H 131/65 H 90 02/01/19 04:00 02/01/19 06:22 02/01/19 06:22 02/01/19 06:00 02/01/19 06:19 Oxygen Flow Rate (L/min) 6 Oxygen Delivery Method Mechanical Ventilator Weight: 221 lb 9.033 oz Body Mass Index (BMI) 31.9 Intake and Output for Last 24 Hours 01/30/19 01/31/19 02/01/19 23:59 23:59 23:59 Intake Total 4105.20 / 4122.10 2825.63 / 3256.13 1150.41 / 1150.41 Output Total 4350 / 4350 3650 / 4750 2700 / 2700 Balance -244.80 / -227.90 -824.37 / -1493.87 -1549.59 / -1549.59 General: No apparent distress, - - Sedated with fentanyl and propofol. He does open his eyes and he is able to follow simple commands. HEENT: Atraumatic, PERRLA Neck: Supple, Trachea Midline Lungs: Clear to auscultation - anterior, no wheezes and no rales, BS are very diminished Cardiovascular: Regular rate, Regular Rhythm, Normal S1, Normal S2, No murmurs, No rub noted, No Gallop, - - having some PAC's. No ventricular ectopy Abdomen: Bowel Sounds Present, Soft, Non-Distended, Tender - diffusely but, no guarding Extremities: No cyanosis, Edema Skin: No rashes, - - very dry skin over the LE's with cracking but, no openings in the skin Neurological: Cranial nerves II-XII grossly intact, Neuro grossly intact Microbiology Past 72 Hours 01/26/19 13:20 Blood Culture (Wb) - Right Hand Blood Culture - Final No growth in 5 days. 01/26/19 12:50 Blood Culture (Wb) - Left Hand Blood Culture - Final No growth in 5 days. 01/26/19 10:45 Sputum, Induced/Lukens Gram Stain - Final 01/26/19 10:45 Sputum, Induced/Lukens Respiratory Culture - Final Haemophilus influenzae Streptococcus pneumoniae 01/23/19 18:00 Blood Culture (Wb) - Anticubital Left Blood Culture - Final No growth in 5 days. 01/23/19 18:10 Blood Culture (Wb) - Right Forearm Blood Culture - Final No growth in 5 days. Laboratory Results 01/31/19 03:10: Absolute Neuts (auto) 10.6 H, Absolute Lymphs (auto) 1.34, Total Counted 100, Neutrophils % (Manual) 76 H, Band Neutrophils % 3, Lymphocytes % (Manual) 10 L, Monocytes % (Manual) 7, Metamyelocytes % 4 H, Diff Path Review Reviewed, Platelet Estimate ADEQUATE, RBC Morphology N CYTIC, Macrocytosis 2+ 01/31/19 13:31: POC Glucose 183 H 01/31/19 18:48: POC Glucose 194 H 01/31/19 23:07: POC Glucose 192 H 02/01/19 04:00: APTT 29.4 02/01/19 04:00: WBC RCIS, Corrected WBC 12.5 H, RBC 3.16 L, Hgb 10.8 L, Hct 33.5 L, MCV 106.0 H, MCH 34.2 H, MCHC 32.2, RDW Std Deviation 52.1 H, RDW Coeff of Mohsen 13.7, Plt Count 131 L, MPV 10.7, Neut % (Auto) Not Reportable, Absolute Neuts (auto) 6.9, Absolute Lymphs (auto) 3.62, Total Counted 100, Neutrophils % (Manual) 51, Band Neutrophils % 4, Lymphocytes % (Manual) 29, Monocytes % (Manual) 10, Metamyelocytes % 6 H, Nucleated RBCs/100 WBC 7 H, Diff Path Review May foll, Platelet Estimate ADEQUATE, Plt Morphology Comment CLUM, Polychromasia 2+, Macrocytosis 2+ 02/01/19 04:00: Sodium 137, Potassium 3.6, Chloride 89 L, Carbon Dioxide 44.0 H, Anion Gap 4 L, BUN 36 H, Creatinine 0.50 L, Estim Creat Clear Calc 155.15, Est GFR (MDRD) Af Amer 215, Est GFR (MDRD) Non-Af 177, BUN/Creatinine Ratio 71.3 H, Glucose 157 H, Calcium 8.6 02/01/19 05:09: POC Glucose 151 H Current Medications Acetaminophen (Tylenol) 650 mg PO Q6H PRN PRN PRN Reason: Non-cardiac pain () Last Admin: 01/25/19 15:13 Dose: 650 mg Documented by: Acetaminophen (Tylenol Liquid) 650 mg GT Q6H PRN PRN PRN Reason: TEMP>101 Al Hydroxide/Mg Hydroxide (Mylanta Ii) 15 - 30 ml PO Q4H PRN PRN PRN Reason: INDIGESTION Albuterol Sulfate (Ventolin Aerosols) 2.5 mg INHALATION Q2H PRN PRN PRN Reason: dyspnea, wheezing Last Admin: 01/26/19 09:26 Dose: 2.5 mg Documented by: Albuterol/Ipratropium (Duoneb) 3 ml INHALATION Q4HWA.RT [facility] Last Admin: 02/01/19 06:22 Dose: 3 ml Documented by: Atorvastatin Calcium (Lipitor) 80 mg GT QHS [facility] Last Admin: 01/31/19 21:03 Dose: 80 mg Documented by: Chlorhexidine Gluconate () 15 ml PO BID [facility] Last Admin: 01/31/19 21:08 Dose: 15 ml Documented by: Chlorhexidine Gluconate () 1 each TOPICAL DAILY [facility] Last Admin: 01/31/19 10:09 Dose: 1 each Documented by: Dextrose (D50w Syringe) 0 gm IV X1 PRN; Protocol PRN Reason: Hypoglycemia Divalproex Sodium (Depakote Er) 500 mg PO 0700,1300 [facility] Last Admin: 01/26/19 13:30 Dose: Not Given Documented by: Divalproex Sodium (Depakote Er) 1,000 mg PO QHS [facility] Last Admin: 01/25/19 21:41 Dose: 1,000 mg Documented by: Enoxaparin Sodium (Lovenox) 100 mg SC Q12@0600,1800 [facility] Last Admin: 02/01/19 05:11 Dose: 100 mg Documented by: Famotidine (Pepcid) 20 mg GT BID [facility] Last Admin: 01/31/19 21:02 Dose: 20 mg Documented by: Furosemide (Lasix) 60 mg IV Q8 [facility] Last Admin: 02/01/19 05:11 Dose: 60 mg Documented by: Gabapentin (Neurontin) 300 mg GT TID [facility] Last Admin: 02/01/19 05:11 Dose: 300 mg Documented by: Glucagon () 1 mg IM .X1 PRN PRN Reason: Hypoglycemia Guaifenesin (Robitussin) 10 ml GT Q6H PRN Guaifenesin (Robitussin) 10 ml GT Q6H [facility] Last Admin: 02/01/19 05:11 Dose: 10 ml Documented by: Heparin Sodium (Porcine) (Heparin Na) 0 unit IV UD PRN; Protocol Sodium Chloride () 250 mls @ 15 mls/hr IV .[id number] PRN PRN Reason: Saline Flush Last Infusion: 01/31/19 16:27 Dose: Infused Documented by: Enteral Nutritional Formula (Vital Af 1.2 Truong Liquid) 1,000 mls @ 60 mls/hr GT .[id number] [facility] Last Admin: 02/01/19 05:13 Dose: 60 mls/hr Documented by: Fentanyl () 100 mls @ 15 mls/hr IV UD [facility]; Protocol Last Titration: 02/01/19 06:00 Dose: 50 mcg/hr, 5 mls/hr Documented by: Propofol (Diprivan) 1,000 mg in 100 mls @ 18.882 mls/hr CONT INF .Q5H18M [facility]; Protocol Last Titration: 02/01/19 06:00 Dose: 7.5 mcg/kg/min, 4.7 mls/hr Documented by: Ampicillin Sodium/Sulbactam (Sodium 3 gm/ Sodium Chloride) 112 mls @ 150 mls/hr IV Q6 [facility] Stop: 02/04/19 18:01 Last Infusion: 02/01/19 06:02 Dose: Infused Documented by: Insulin Glargine (Lantus (Bkc)) 5 units SC BID [facility] Last Admin: 01/31/19 23:08 Dose: 5 u Documented by: Insulin Human Lispro (Humalog Kwikpen (Bk)) 0 unit SC Q6 [facility]; Protocol Last Admin: 02/01/19 05:11 Dose: 1 u Documented by: Magnesium Hydroxide (Milk Of Magnesia) 30 ml GT DAILY PRN PRN Reason: Constipation Last Admin: 01/30/19 09:33 Dose: 30 ml Documented by: Nicotine (Nicoderm Cq (Pbkc)) 21 mg TRANSDERM. DAILY [facility] Last Admin: 01/31/19 10:15 Dose: 21 mg Documented by: Nitroglycerin (Nitrostat) 0.4 mg SUBLINGUAL Q5M PRN PRN Reason: CARDIAC/CHEST PAIN Ondansetron HCl (Zofran) 4 mg IV Q8H PRN PRN PRN Reason: NAUSEA/VOMITING Polyethylene Glycol (Miralax) 17 gm GT BID [facility] Last Admin: 01/31/19 21:02 Dose: 17 gm Documented by: Potassium Chloride (Potassium Chl Soln) [address] [place] Prednisone () 40 mg PO DAILY@0800 [facility] Last Admin: 01/31/19 13:33 Dose: 40 mg Documented by: Senna/Docusate Sodium (Senokot-S, Lila-Colace) 2 tablet GT BID [facility] Last Admin: 01/31/19 21:02 Dose: 2 tablet Documented by: Sodium Chloride () 10 - 40 ml IV UD PRN PRN Reason: SALINE FLUSH Last Admin: 01/31/19 18:44 Dose: 10 ml Documented by: Throat Lozenges (Cepacol Sore Throat Lozenge) 1 lozenge MUCOUS MEM Q2H PRN PRN PRN Reason: COUGH Valproic Acid (Depakene) 500 mg GT 4X/DAY [facility] Last Admin: 01/31/19 21:04 Dose: 500 mg Documented by: Medical Necessity - Tobacco Use Smoking Status: Current every day smoker Tobacco Use: Cigarettes Assessment/Plan All Active Problems CVA (cerebral vascular accident) (Acute) Slurred speech (Acute) COPD exacerbation (Acute) Impressions 1. Septic shock secondary to presumed aspiration pneumonia however, the sputum grew Haemophilus influenza and Streptococcus pneumoniae which would be more consistent with community-acquired pneumonia. Off pressors since 01/29/2019 and maintaining appropriate blood pressure. Plan 10 days of antibiotics total. Continue Unasyn. 2. Acute on chronic combined respiratory failure due to PNA 3. acute exacerbation COPD - has been transitioned to Prednisone per OGT 4. abdominal pain - Check a KUB today 5. Seizure disorder on valproic acid. Recheck valproic acid level today. It was therapeutic at admission. 6. anasarca due to volume OL. He is 10 liters up since admission and is currently being diuresed 7. Macrocytic anemia-stable 8. Thrombocytopenia-more likely than not secondary to sepsis, platelets are improving 9. Pulmonary emboli-continue therapeutic Lovenox. Transition to Eliquis prior to DC 10. GI prophylaxis with Pepcid 20 mg twice daily 11. Stage I diastolic dysfunction, moderately dilated right ventricle 12. Slurred speech at admission-MRI and MRAs negative for stroke. Seen by Dr. Dolan. Acetylcholine receptor antibodies pending Discussed on rounds with the ICU team. Potassium supplement added. Continue diuresis. recheck BMP in the AM. Check a valproic acid level KUB to evaluate for source of Abd pain Code Visit Inpatient E&M: 86269 Subs Hosp L3
--- NOTE | 2019-02-01 07:42 | PN_ITS ---
Subjective: Patient did well overnight. No acute issues were reported. Patient has had good diuresis and oxygenation has improved. Patient is opening his eyes and will deny pain by head shake. Patient continues to tolerate tube feeds. General: - - Intubated and sedated. RASS -1-0. Good vent synchrony. Spontaneous respirations noted. HEENT: Atraumatic, PERRLA, EOMI, Normocephalic, - - No scleral icterus or injection noted Oral: Moist Mucosa, No Gingival or Mucosal Lesions/ Ulcerations Neck: Supple, No JVD, No Nodes, Trachea Midline Lungs: No rhonchi, No wheeze, Diminished, Rales, - - Symmetric expansion Cardiovascular: Regular rate, Regular Rhythm, Normal S1, Normal S2, No murmurs, No rub noted, No Gallop Abdomen: Bowel Sounds Present, Soft, Non Tender, Non-Distended Extremities: No clubbing, No cyanosis, Edema - Anasarca is improved compared to previous Skin: No rashes, No breakdown Musculoskeletal: No Tenderness to Palpation of Joints or Extremities Lymphatic: No Cervical, Supraclavicular, or Inguinal Adenopathy Neurological: Cranial nerves II-XII grossly intact, Neuro grossly intact Psych/Mental Status: Flat Affect Vital Signs Temp Pulse Resp BP Pulse Ox 37.2 C 87 21 H 131/65 H 90 02/01/19 04:00 02/01/19 06:22 02/01/19 06:22 02/01/19 06:00 02/01/19 06:19 Oxygen Flow Rate (L/min) 6 Oxygen Delivery Method Mechanical Ventilator Weight: 100.5 kg Body Mass Index (BMI) 31.9 Intake and Output for Last 24 Hours 01/30/19 01/31/19 02/01/19 23:59 23:59 23:59 Intake Total 4105.20 / 4122.10 2825.63 / 3256.13 1167.62 / 1167.62 Output Total 4350 / 4350 3650 / 4750 2700 / 2700 Balance -244.80 / -227.90 -824.37 / -1493.87 -1532.38 / -1532.38 Labs (Last 48 Hours) 01/30/19 01/30/19 01/30/19 05:10 12:47 14:45 WBC Corrected WBC RBC Hgb Hct MCV MCH MCHC RDW Std Deviation RDW Coeff of Mohsen Plt Count MPV Neut % (Auto) Absolute Neuts (auto) Absolute Lymphs (auto) Total Counted Neutrophils % (Manual) Band Neutrophils % Lymphocytes % (Manual) Monocytes % (Manual) Metamyelocytes % Nucleated RBCs/100 WBC Diff Path Review Reviewed Platelet Estimate Plt Morphology Comment RBC Morphology Polychromasia Macrocytosis APTT 71.0 H Specimen Type Sample Site pH Bicarbonate Actual POC Total CO2 Base Excess O2 Saturation O2 % ABG pCO2 ABG pO2 Dariusz Test O2 Delivery Device Vent Mode POC PEEP Pressure High Pressure Low Time High Time Low Blood Gas Notified Whom Blood Gas Notified Time Sodium Potassium Chloride Carbon Dioxide Anion Gap BUN Creatinine Estim Creat Clear Calc Est GFR (MDRD) Af Amer Est GFR (MDRD) Non-Af BUN/Creatinine Ratio Glucose Calcium Total Bilirubin AST ALT Alkaline Phosphatase Total Protein Albumin Globulin Albumin/Globulin Ratio POC Glucose 217 H 01/30/19 01/30/19 01/30/19 16:40 21:00 23:31 WBC Corrected WBC RBC Hgb Hct MCV MCH MCHC RDW Std Deviation RDW Coeff of Mohsen Plt Count MPV Neut % (Auto) Absolute Neuts (auto) Absolute Lymphs (auto) Total Counted Neutrophils % (Manual) Band Neutrophils % Lymphocytes % (Manual) Monocytes % (Manual) Metamyelocytes % Nucleated RBCs/100 WBC Diff Path Review Platelet Estimate Plt Morphology Comment RBC Morphology Polychromasia Macrocytosis APTT 71.0 H Specimen Type Sample Site pH Bicarbonate Actual POC Total CO2 Base Excess O2 Saturation O2 % ABG pCO2 ABG pO2 Dariusz Test O2 Delivery Device Vent Mode POC PEEP Pressure High Pressure Low Time High Time Low Blood Gas Notified Whom Blood Gas Notified Time Sodium Potassium Chloride Carbon Dioxide Anion Gap BUN Creatinine Estim Creat Clear Calc Est GFR (MDRD) Af Amer Est GFR (MDRD) Non-Af BUN/Creatinine Ratio Glucose Calcium Total Bilirubin AST ALT Alkaline Phosphatase Total Protein Albumin Globulin Albumin/Globulin Ratio POC Glucose 200 H 210 H 01/31/19 01/31/19 01/31/19 03:10 03:10 03:10 WBC 13.4 H Corrected WBC RBC 3.35 L Hgb 11.4 L Hct 35.4 L MCV 105.7 H MCH 34.0 H MCHC 32.2 RDW Std Deviation 53.8 H RDW Coeff of Mohsen 13.9 Plt Count 134 L MPV 11.8 Neut % (Auto) Not Reportable Absolute Neuts (auto) 10.6 H Absolute Lymphs (auto) 1.34 Total Counted 100 Neutrophils % (Manual) 76 H Band Neutrophils % 3 Lymphocytes % (Manual) 10 L Monocytes % (Manual) 7 Metamyelocytes % 4 H Nucleated RBCs/100 WBC Diff Path Review Reviewed Platelet Estimate ADEQUATE Plt Morphology Comment RBC Morphology N CYTIC Polychromasia Macrocytosis 2+ APTT 60.4 H Specimen Type Sample Site pH Bicarbonate Actual POC Total CO2 Base Excess O2 Saturation O2 % ABG pCO2 ABG pO2 Dariusz Test O2 Delivery Device Vent Mode POC PEEP Pressure High Pressure Low Time High Time Low Blood Gas Notified Whom Blood Gas Notified Time Sodium 134 L Potassium 4.7 Chloride 90 L Carbon Dioxide 40.0 H Anion Gap 4 L BUN 32 H Creatinine 0.50 L Estim Creat Clear Calc 155.15 Est GFR (MDRD) Af Amer 217 Est GFR (MDRD) Non-Af 179 BUN/Creatinine Ratio 63.9 H Glucose 204 H Calcium 8.6 Total Bilirubin 0.50 AST 20 ALT 19 Alkaline Phosphatase 53 Total Protein 5.9 L Albumin 2.1 L Globulin 3.8 Albumin/Globulin Ratio 0.6 L POC Glucose 01/31/19 01/31/19 01/31/19 04:37 05:40 13:31 WBC Corrected WBC RBC Hgb Hct MCV MCH MCHC RDW Std Deviation RDW Coeff of Mohsen Plt Count MPV Neut % (Auto) Absolute Neuts (auto) Absolute Lymphs (auto) Total Counted Neutrophils % (Manual) Band Neutrophils % Lymphocytes % (Manual) Monocytes % (Manual) Metamyelocytes % Nucleated RBCs/100 WBC Diff Path Review Platelet Estimate Plt Morphology Comment RBC Morphology Polychromasia Macrocytosis APTT Specimen Type ART Sample Site L Radial pH 7.50 H Bicarbonate Actual 44.3 H POC Total CO2 46 Base Excess 21 H O2 Saturation 93 L O2 % 55 ABG pCO2 56.4 H ABG pO2 64 L Dariusz Test POS O2 Delivery Device Vent Vent Mode APRV POC PEEP 0 Pressure High 22.0 Pressure Low 0.0 Time High 4.0 Time Low 0.5 Blood Gas Notified Whom ICU Blood Gas Notified Time 435 Sodium Potassium Chloride Carbon Dioxide Anion Gap BUN Creatinine Estim Creat Clear Calc Est GFR (MDRD) Af Amer Est GFR (MDRD) Non-Af BUN/Creatinine Ratio Glucose Calcium Total Bilirubin AST ALT Alkaline Phosphatase Total Protein Albumin Globulin Albumin/Globulin Ratio POC Glucose 205 H 183 H 01/31/19 01/31/19 02/01/19 18:48 23:07 04:00 WBC Corrected WBC RBC Hgb Hct MCV MCH MCHC RDW Std Deviation RDW Coeff of Mohsen Plt Count MPV Neut % (Auto) Absolute Neuts (auto) Absolute Lymphs (auto) Total Counted Neutrophils % (Manual) Band Neutrophils % Lymphocytes % (Manual) Monocytes % (Manual) Metamyelocytes % Nucleated RBCs/100 WBC Diff Path Review Platelet Estimate Plt Morphology Comment RBC Morphology Polychromasia Macrocytosis APTT 29.4 Specimen Type Sample Site pH Bicarbonate Actual POC Total CO2 Base Excess O2 Saturation O2 % ABG pCO2 ABG pO2 Dariusz Test O2 Delivery Device Vent Mode POC PEEP Pressure High Pressure Low Time High Time Low Blood Gas Notified Whom Blood Gas Notified Time Sodium Potassium Chloride Carbon Dioxide Anion Gap BUN Creatinine Estim Creat Clear Calc Est GFR (MDRD) Af Amer Est GFR (MDRD) Non-Af BUN/Creatinine Ratio Glucose Calcium Total Bilirubin AST ALT Alkaline Phosphatase Total Protein Albumin Globulin Albumin/Globulin Ratio POC Glucose 194 H 192 H 02/01/19 02/01/19 02/01/19 04:00 04:00 05:09 WBC GLASS ENAMEL MIXER Corrected WBC 12.5 H RBC 3.16 L Hgb 10.8 L Hct 33.5 L MCV 106.0 H MCH 34.2 H MCHC 32.2 RDW Std Deviation 52.1 H RDW Coeff of Mohsen 13.7 Plt Count 131 L MPV 10.7 Neut % (Auto) Not Reportable Absolute Neuts (auto) 6.9 Absolute Lymphs (auto) 3.62 Total Counted 100 Neutrophils % (Manual) 51 Band Neutrophils % 4 Lymphocytes % (Manual) 29 Monocytes % (Manual) 10 Metamyelocytes % 6 H Nucleated RBCs/100 WBC 7 H Diff Path Review May foll Platelet Estimate ADEQUATE Plt Morphology Comment CLUM RBC Morphology Polychromasia 2+ Macrocytosis 2+ APTT Specimen Type Sample Site pH Bicarbonate Actual POC Total CO2 Base Excess O2 Saturation O2 % ABG pCO2 ABG pO2 Dariusz Test O2 Delivery Device Vent Mode POC PEEP Pressure High Pressure Low Time High Time Low Blood Gas Notified Whom Blood Gas Notified Time Sodium 137 Potassium 3.6 Chloride 89 L Carbon Dioxide 44.0 H Anion Gap 4 L BUN 36 H Creatinine 0.50 L Estim Creat Clear Calc 155.15 Est GFR (MDRD) Af Amer 215 Est GFR (MDRD) Non-Af 177 BUN/Creatinine Ratio 71.3 H Glucose 157 H Calcium 8.6 Total Bilirubin AST ALT Alkaline Phosphatase Total Protein Albumin Globulin Albumin/Globulin Ratio POC Glucose 151 H Microbiology 01/26/19 13:20 Blood Culture (Wb) - Right Hand Blood Culture - Final No growth in 5 days. 01/26/19 12:50 Blood Culture (Wb) - Left Hand Blood Culture - Final No growth in 5 days. 01/26/19 10:45 Sputum, Induced/Lukens Gram Stain - Final 01/26/19 10:45 Sputum, Induced/Lukens Respiratory Culture - Final Haemophilus influenzae Streptococcus pneumoniae Medical Necessity - Tobacco Use Smoking Status: Current every day smoker Tobacco Use: Cigarettes Assessment/Plan All Active Problems CVA (cerebral vascular accident) (Acute) Slurred speech (Acute) COPD exacerbation (Acute) RECOMMENDATIONS: 1. Continue APRV ventilation, continue T high at 5.5 seconds, attempt to wean P high through the day 2. Continue Unasyn to complete a 10-day course 3. Continue diuretic therapy, add potassium repletion 4. Continue to wean FiO2 and PPI to maintain an oxygen saturation at or above 90%. 5. Continue bronchodilators. Likely wean prednisone over the next 12 to 14 days 6. Continue tube feeds as ordered. 7. Continue appropriate ICU prophylaxis. IMPRESSIONS: 1. Acute on chronic hypoxemic respiratory failure secondary to presumed aspiration pneumonia The patient was emergently transferred to the ICU on the morning of January 26, where he did require intubation due to impending respiratory failure following an aspiration event. Patient now with multiple etiologies of hypoxic respiratory failure including COPD, H. influenzae and small pulmonary emboli. Patient is on anticoagulation. Patient responded well to an increase in T high. Patient continues to be diuresed and has tolerated lower FiO2. We will continue to attempt to wean P high through the day as diuresis takes effect. 2. Septic shock secondary to presumed aspiration pneumonia Patient has been able to come off of pressor therapy at this point. Patient will continue with antibiotic therapy to complete a 10-day course. 3. COPD with exacerbation Inciting etiology appears to be aspiration event and possible pulmonary emboli. Continue current supportive measures as noted above along with bronchodilators and steroids. Wean oxygen as tolerated. Prednisone can likely be weaned over the next 12 to 14 days 4. Slurred speech Intubated and sedated. Will need to reevaluate once patient is liberated from the ventilator. 5. History of venous thrombi embolic disease/hypertension/hyperlipidemia/seizure disorder/continuous tobacco dependency Complicates care, management, recovery and prognosis. Hold home antihypertensives and diuretics for now. Continue antiepileptics. 6. Hyperkalemia Patient receiving aggressive diuresis at this time. Potassium is at lower limit of normal at 3.6, so supplementation will be added TIME: 40 minutes of critical care time, independent of procedures, was spent addressing the patient's acute on chronic hypoxemic respiratory failure, septic shock secondary to presumed aspiration pneumonia, COPD with exacerbation, review of all data and collaboration with the care team. (6:15 AM to 7:15 AM) Code Visit [id number]: [id number] Critical care first hour
--- NOTE | 2019-02-01 09:29 | RAD_ITS ---
STUDY: X-RAY - ABDOMEN/PELVIS REASON FOR EXAM: Male, 63 years old. TECHNIQUE: 2 views COMPARISON: January 26, 2019 FINDINGS: The examination is limited. NG tube with the tip in the antrum of the stomach. Apparently very limited infiltrate in the medial aspect of the right lung There is an unremarkable bowel gas pattern. There is no demonstrated free abdominal air. No organomegaly or soft tissue masses. Calcified iliac vessels noted. There is a catheter with the tip in the urinary bladder Grossly the visualized bones are unremarkable. RAD/Abdomen Single View (Portable) IMPRESSION: Limited study of the abdomen and pelvis which is grossly negative. Electronically Signed: Wesley Mayer, at 10:40 EST Tel , Service support ,
[2019-02-01] MEDS: Chlorhexidine 15 ML PO ×2 (09:32→21:12)
[2019-02-01] MEDS: CHLORHEXIDINE GLUC 2% CLOTH 1 EACH TOWELETTE TOPICAL (09:32)
[2019-02-01] MEDS: Polyethylene Glycol 3350 17 GM PACKET GT ×2 (09:33→21:12)
[2019-02-01] MEDS: predniSONE 20 MG Tablet 40 MG PO (09:33)
[2019-02-01] MEDS: Senna/Docusate Sodium 1 Tablet 2 TABLET GT ×2 (09:34→21:13)
[2019-02-01] MEDS: Famotidine 20 MG Tablet GT ×2 (09:34→21:12)
[2019-02-01 09:46] LABS: Base Excess 28 mmol/L (-2 to +2); Bicarbonate 50.3 mmol/L (22-26); Blood Gas Specimen Type ART; FI02 40; Mode APRV; O2 Delivery Device Vent; PO2 57 mmHG (75-100); SITE L Radial; SO2 91 % (95-99); T LOW 0.5; Time Given 503; Total Carbon Dioxide > 50 mmol/L; pCO2 60.6 mmHg (35-45); pH 7.53 (7.35-7.45)
[2019-02-01] MEDS: fentaNYL drip 100 ML 10 MCG IV ×2 (10:00→19:13)
[2019-02-01 10:08] LABS: Magnesium 2.3 mg/dL (1.6-2.6); Phosphorus 4.1 mg/dL (2.5-4.9)
[2019-02-01] MEDS: 0.9% Saline Lock 10 ML Syringe IV ×3 (11:05→21:29)
[2019-02-01 11:15] LABS: Bedside Glucose 146 mg/dL (70-110)
[2019-02-01] MEDS: Propofol 10MG/Ml 1,000 MG/100 ML Bottle 7.5 MG CONT INF (11:29)
[2019-02-01 11:45] LABS: Valproic Acid (Depakene) Level 68 ug/mL (50-100)
[2019-02-01 17:41] LABS: Bedside Glucose 149 mg/dL (70-110)
[2019-02-01] MEDS: Propofol 10MG/Ml 1,000 MG/100 ML Bottle 10.6 MG CONT INF (17:50)
[2019-02-01] MEDS: Atorvastatin Calcium 80 MG Tablet GT (21:13)
[2019-02-01 21:51] LABS: Bedside Glucose 131 mg/dL (70-110)
[2019-02-02] VITALS (36 sets, daily range): BP systolic 81–123; BP diastolic 49–90; PULSE 74–94; RESP 12–24; TEMP 37.1–37.8; O2SAT 88–94; BMI 31.9
[2019-02-02 00:01] LABS: Bedside Glucose 121 mg/dL (70-110)
--- NOTE | 2019-02-02 01:20 | NURSING ---
O2 sats decreased to 88%, suctioned large amts of secretions via ETT, sats remain in high 80's, respiratory therapist at bedside, saline lavaged and large mucoid plug suctioned out, sats increased to low 90's.
[2019-02-02] MEDS: Propofol 10MG/Ml 1,000 MG/100 ML Bottle 10.6 MG CONT INF ×2 (03:16→11:42)
[2019-02-02] MEDS: 0.9% Saline Lock 10 ML Syringe IV ×3 (03:16→17:42)
[2019-02-02 03:59] LABS: Hematocrit 34.6 % (40-54); Mean Corp Hgb Conc 31.8 g/dL (32-36); Mean Corpuscular Hgb 33.7 pg (27.0-32.0); Mean Corpuscular Volume 106.1 fL (80-94); Mean Platelet Vol. 10.2 fl (6.2-12.0); POSITIVE COUNT YES; POSITIVE MORPHOLOGY YES; Platelet Count 136 K/mm3 (150-450); RBC Distribution Width CV 14.1 % (11.6-14.6); RBC Distribution Width SD 53.6 fl (35.1-43.9); Red Blood Count 3.26 M/mm3 (4.6-6.2)
[2019-02-02 04:04] LABS: White Blood Count 11.6 K/mm3 (4.4-11.0)
[2019-02-02 04:05] LABS: Differential Indicated MANUAL DIFF
[2019-02-02 04:11] LABS: Anion Gap 4 (5-15); BUN 32 mg/dL (7-18); BUN/Creat Ratio 74.4 RATIO (10-20); Calcium,Total 8.6 mg/dL (8.5-10.1); Chloride 91 mmol/L (98-107); Creatinine, Serum 0.43 mg/dL (0.70-1.30); EST Glomerular Filtration Rate 214 mL/min (>60); Est Glom Filt Rate - Afr Amer 258 mL/min (>60); Glucose 108 mg/dL (74-106); Potassium 3.7 mmol/L (3.5-5.1); Sodium Level 139 mmol/L (136-145)
[2019-02-02 04:20] LABS: Lymphocyte 26 % (19-41); Metamyelocyte 8 % (0-1); Monocyte 3 % (0-10); Neutrophil-Band 22 % (0-5); Neutrophil-Segmented 41 % (47-70); Nucleated Red Bld Cells,Manual 2 % (0-5); Total Cells Counted 100 (MANUAL DIFF)
[2019-02-02 04:22] LABS: Absolute Lymphocyte Count 3.02 X10^3/uL (0.83-4.51); Absolute Neutrophil Count 7.3 X10^3/uL (2.0-7.7); Lymphocyte # 3.02 X10^3/ul (4.0); Neutrophil # 7.31 X10^3/uL (2.7-7.7); Platelet Estimate SLT DEC (ADEQ)
[2019-02-02 04:23] LABS: Anisocytosis 2+; Macrocytosis 1+
[2019-02-02 04:24] LABS: Hypochromasia 1+; Polychromasia RARE
[2019-02-02] MEDS: fentaNYL drip 100 ML 10 MCG IV ×2 (05:28→15:43)
[2019-02-02] MEDS: Gabapentin 300 MG Capsule GT ×3 (05:28→21:00)
[2019-02-02] MEDS: Enoxaparin 100 MG/ML Syringe SC ×2 (05:29→17:41)
[2019-02-02] MEDS: Furosemide 100 MG/10 ML Vial 60 MG IV (05:29)
[2019-02-02] MEDS: guaiFENesin 10 ML UDC (200MG/10ML) GT ×3 (05:30→17:40)
[2019-02-02 05:51] LABS: Bedside Glucose 97 mg/dL (70-110)
[2019-02-02] MEDS: Ipratropium/Albuterol Sulfate 3 ML AMPUL.NEB INHALATION ×4 (06:33→19:00)
--- NOTE | 2019-02-02 07:45 | PN_ITS ---
Subjective: Patient did well overnight. No acute issues were reported outside of a mucous plug at approximately 2 AM. Patient was suctioned with improvement in saturations. Patient has been able to be weaned on his P high and FiO2 overnight. Diuresis has been progressing well. Patient continues to tolerate tube feeds. General: - - Anasarca continues to improve intubated and sedated. RASS -1. Obese. HEENT: Atraumatic, PERRLA, EOMI, Normocephalic, - - Slight scleral injection without icterus Oral: Moist Mucosa, No Gingival or Mucosal Lesions/ Ulcerations Neck: Supple, No JVD, No Nodes, Trachea Midline Lungs: No rhonchi, No wheeze, Diminished, Rales, - Cardiovascular: Regular rate, Regular Rhythm, Normal S1, Normal S2, No murmurs, No rub noted, No Gallop Abdomen: Bowel Sounds Present, Soft, Non Tender, Non-Distended, Obese Extremities: No clubbing, No cyanosis, Edema - Continues to improve Skin: No rashes, No breakdown Musculoskeletal: No Tenderness to Palpation of Joints or Extremities Lymphatic: No Cervical, Supraclavicular, or Inguinal Adenopathy Neurological: Cranial nerves II-XII grossly intact, Neuro grossly intact, Motor Exam 5/5 strength throughout Psych/Mental Status: Flat Affect Vital Signs Temp Pulse Resp BP Pulse Ox 37.2 C 87 12 100/63 91 02/02/19 06:00 02/02/19 07:15 02/02/19 07:00 02/02/19 07:00 02/02/19 07:00 Oxygen Flow Rate (L/min) 6 Oxygen Delivery Method Mechanical Ventilator Weight: 97.5 kg Body Mass Index (BMI) 31.9 Intake and Output for Last 24 Hours 01/31/19 02/01/19 02/02/19 23:59 23:59 23:59 Intake Total 2825.63 / 3256.13 2672.68 / 3157.28 1231.26 / 1231.26 Output Total 3650 / 4750 5225 / 6525 1750 / 1750 Balance -824.37 / -1493.87 -2552.32 / -3367.72 -518.74 / -518.74 Labs (Last 48 Hours) 01/31/19 01/31/19 01/31/19 03:10 13:31 18:48 WBC Corrected WBC RBC Hgb Hct MCV MCH MCHC RDW Std Deviation RDW Coeff of Mohsen Plt Count MPV Neut % (Auto) Absolute Neuts (auto) Absolute Lymphs (auto) Total Counted Neutrophils % (Manual) Band Neutrophils % Lymphocytes % (Manual) Monocytes % (Manual) Metamyelocytes % Nucleated RBCs/100 WBC Diff Path Review Reviewed Platelet Estimate Plt Morphology Comment Polychromasia Hypochromasia Anisocytosis Macrocytosis APTT Specimen Type Sample Site pH Bicarbonate Actual POC Total CO2 Base Excess O2 Saturation O2 % ABG pCO2 ABG pO2 Dariusz Test O2 Delivery Device Vent Mode Pressure High Pressure Low Time High Time Low Blood Gas Notified Whom Blood Gas Notified Time Sodium Potassium Chloride Carbon Dioxide Anion Gap BUN Creatinine Estim Creat Clear Calc Est GFR (MDRD) Af Amer Est GFR (MDRD) Non-Af BUN/Creatinine Ratio Glucose Calcium Phosphorus Magnesium Valproic Acid POC Glucose 183 H 194 H 01/31/19 02/01/19 02/01/19 23:07 04:00 04:00 WBC FILM EDITOR SUPERVISOR Corrected WBC 12.5 H RBC 3.16 L Hgb 10.8 L Hct 33.5 L MCV 106.0 H MCH 34.2 H MCHC 32.2 RDW Std Deviation 52.1 H RDW Coeff of Mohsen 13.7 Plt Count 131 L MPV 10.7 Neut % (Auto) Not Reportable Absolute Neuts (auto) 6.9 Absolute Lymphs (auto) 3.62 Total Counted 100 Neutrophils % (Manual) 51 Band Neutrophils % 4 Lymphocytes % (Manual) 29 Monocytes % (Manual) 10 Metamyelocytes % 6 H Nucleated RBCs/100 WBC 7 H Diff Path Review May foll Platelet Estimate ADEQUATE Plt Morphology Comment CLUM Polychromasia 2+ Hypochromasia Anisocytosis Macrocytosis 2+ APTT 29.4 Specimen Type Sample Site pH Bicarbonate Actual POC Total CO2 Base Excess O2 Saturation O2 % ABG pCO2 ABG pO2 Dariusz Test O2 Delivery Device Vent Mode Pressure High Pressure Low Time High Time Low Blood Gas Notified Whom Blood Gas Notified Time Sodium Potassium Chloride Carbon Dioxide Anion Gap BUN Creatinine Estim Creat Clear Calc Est GFR (MDRD) Af Amer Est GFR (MDRD) Non-Af BUN/Creatinine Ratio Glucose Calcium Phosphorus Magnesium Valproic Acid POC Glucose 192 H 02/01/19 02/01/19 02/01/19 04:00 04:00 05:04 WBC Corrected WBC RBC Hgb Hct MCV MCH MCHC RDW Std Deviation RDW Coeff of Mohsen Plt Count MPV Neut % (Auto) Absolute Neuts (auto) Absolute Lymphs (auto) Total Counted Neutrophils % (Manual) Band Neutrophils % Lymphocytes % (Manual) Monocytes % (Manual) Metamyelocytes % Nucleated RBCs/100 WBC Diff Path Review Platelet Estimate Plt Morphology Comment Polychromasia Hypochromasia Anisocytosis Macrocytosis APTT Specimen Type ART Sample Site L Radial pH Pending Bicarbonate Actual Pending POC Total CO2 Pending Base Excess Pending O2 Saturation Pending O2 % 40 ABG pCO2 Pending ABG pO2 57 L Dariusz Test NA O2 Delivery Device Vent Vent Mode APRV Pressure High 20.0 Pressure Low 0.0 Time High 6.0 Time Low 0.5 Blood Gas Notified Whom ICU MD Blood Gas Notified Time 503 Sodium 137 Potassium 3.6 Chloride 89 L Carbon Dioxide 44.0 H Anion Gap 4 L BUN 36 H Creatinine 0.50 L Estim Creat Clear Calc 155.15 Est GFR (MDRD) Af Amer 215 Est GFR (MDRD) Non-Af 177 BUN/Creatinine Ratio 71.3 H Glucose 157 H Calcium 8.6 Phosphorus 4.1 Magnesium 2.3 Valproic Acid POC Glucose 02/01/19 02/01/19 02/01/19 05:09 05:10 11:04 WBC Corrected WBC RBC Hgb Hct MCV MCH MCHC RDW Std Deviation RDW Coeff of Mohsen Plt Count MPV Neut % (Auto) Absolute Neuts (auto) Absolute Lymphs (auto) Total Counted Neutrophils % (Manual) Band Neutrophils % Lymphocytes % (Manual) Monocytes % (Manual) Metamyelocytes % Nucleated RBCs/100 WBC Diff Path Review Platelet Estimate Plt Morphology Comment Polychromasia Hypochromasia Anisocytosis Macrocytosis APTT Specimen Type ART Sample Site L Radial pH 7.53 H Bicarbonate Actual 50.3 H POC Total CO2 > 50 Base Excess 28 H O2 Saturation 91 L O2 % 40 ABG pCO2 60.6 H ABG pO2 57 L Dariusz Test NA O2 Delivery Device Vent Vent Mode APRV Pressure High 20.0 Pressure Low 0.0 Time High 6.0 Time Low 0.5 Blood Gas Notified Whom ICU MD Blood Gas Notified Time 503 Sodium Potassium Chloride Carbon Dioxide Anion Gap BUN Creatinine Estim Creat Clear Calc Est GFR (MDRD) Af Amer Est GFR (MDRD) Non-Af BUN/Creatinine Ratio Glucose Calcium Phosphorus Magnesium Valproic Acid POC Glucose 151 H 146 H 02/01/19 02/01/19 02/01/19 11:05 17:31 21:19 WBC Corrected WBC RBC Hgb Hct MCV MCH MCHC RDW Std Deviation RDW Coeff of Mohsen Plt Count MPV Neut % (Auto) Absolute Neuts (auto) Absolute Lymphs (auto) Total Counted Neutrophils % (Manual) Band Neutrophils % Lymphocytes % (Manual) Monocytes % (Manual) Metamyelocytes % Nucleated RBCs/100 WBC Diff Path Review Platelet Estimate Plt Morphology Comment Polychromasia Hypochromasia Anisocytosis Macrocytosis APTT Specimen Type Sample Site pH Bicarbonate Actual POC Total CO2 Base Excess O2 Saturation O2 % ABG pCO2 ABG pO2 Dariusz Test O2 Delivery Device Vent Mode Pressure High Pressure Low Time High Time Low Blood Gas Notified Whom Blood Gas Notified Time Sodium Potassium Chloride Carbon Dioxide Anion Gap BUN Creatinine Estim Creat Clear Calc Est GFR (MDRD) Af Amer Est GFR (MDRD) Non-Af BUN/Creatinine Ratio Glucose Calcium Phosphorus Magnesium Valproic Acid 68 POC Glucose 149 H 131 H 02/01/19 02/02/19 02/02/19 23:42 03:50 03:50 WBC 11.6 H Corrected WBC RBC 3.26 L Hgb 11.0 L Hct 34.6 L MCV 106.1 H MCH 33.7 H MCHC 31.8 L RDW Std Deviation 53.6 H RDW Coeff of Mohsen 14.1 Plt Count 136 L MPV 10.2 Neut % (Auto) Not Reportable Absolute Neuts (auto) 7.3 Absolute Lymphs (auto) 3.02 Total Counted 100 Neutrophils % (Manual) 41 L Band Neutrophils % 22 H Lymphocytes % (Manual) 26 Monocytes % (Manual) 3 Metamyelocytes % 8 H Nucleated RBCs/100 WBC 2 Diff Path Review Platelet Estimate SLT DEC Plt Morphology Comment Polychromasia RARE Hypochromasia 1+ Anisocytosis 2+ Macrocytosis 1+ APTT Specimen Type Sample Site pH Bicarbonate Actual POC Total CO2 Base Excess O2 Saturation O2 % ABG pCO2 ABG pO2 Dariusz Test O2 Delivery Device Vent Mode Pressure High Pressure Low Time High Time Low Blood Gas Notified Whom Blood Gas Notified Time Sodium 139 Potassium 3.7 Chloride 91 L Carbon Dioxide 44.0 H Anion Gap 4 L BUN 32 H Creatinine 0.43 L Estim Creat Clear Calc 180.40 Est GFR (MDRD) Af Amer 258 Est GFR (MDRD) Non-Af 214 BUN/Creatinine Ratio 74.4 H Glucose 108 H Calcium 8.6 Phosphorus Magnesium Valproic Acid POC Glucose 121 H 02/02/19 05:27 WBC Corrected WBC RBC Hgb Hct MCV MCH MCHC RDW Std Deviation RDW Coeff of Mohsen Plt Count MPV Neut % (Auto) Absolute Neuts (auto) Absolute Lymphs (auto) Total Counted Neutrophils % (Manual) Band Neutrophils % Lymphocytes % (Manual) Monocytes % (Manual) Metamyelocytes % Nucleated RBCs/100 WBC Diff Path Review Platelet Estimate Plt Morphology Comment Polychromasia Hypochromasia Anisocytosis Macrocytosis APTT Specimen Type Sample Site pH Bicarbonate Actual POC Total CO2 Base Excess O2 Saturation O2 % ABG pCO2 ABG pO2 Dariusz Test O2 Delivery Device Vent Mode Pressure High Pressure Low Time High Time Low Blood Gas Notified Whom Blood Gas Notified Time Sodium Potassium Chloride Carbon Dioxide Anion Gap BUN Creatinine Estim Creat Clear Calc Est GFR (MDRD) Af Amer Est GFR (MDRD) Non-Af BUN/Creatinine Ratio Glucose Calcium Phosphorus Magnesium Valproic Acid POC Glucose 97 Microbiology 01/26/19 13:20 Blood Culture (Wb) - Right Hand Blood Culture - Final No growth in 5 days. 01/26/19 12:50 Blood Culture (Wb) - Left Hand Blood Culture - Final No growth in 5 days. Clinical Impression(s) from Imaging Studies [facility] X-Ray 02/01/19 09:29 IMPRESSION: Limited study of the abdomen and pelvis which is grossly negative. Electronically Signed: Wesley Mayer, at 10:40 EST Tel , Service support , Medical Necessity - Tobacco Use Smoking Status: Current every day smoker Tobacco Use: Cigarettes Assessment/Plan All Active Problems CVA (cerebral vascular accident) (Acute) Slurred speech (Acute) COPD exacerbation (Acute) RECOMMENDATIONS: 1. Transition to assist control and wean PEEP as tolerated 2. Continue Unasyn to complete a 10-day course 3. Decrease diuretic therapy. Continue potassium repletion 4. Continue to wean FiO2 and PPI to maintain an oxygen saturation at or above 90%. 5. Continue bronchodilators. Likely wean prednisone over the next 12 to 14 days 6. Continue tube feeds as ordered. 7. Continue appropriate ICU prophylaxis. IMPRESSIONS: 1. Acute on chronic hypoxemic respiratory failure secondary to presumed aspiration pneumonia The patient was emergently transferred to the ICU on the morning of January 26, where he did require intubation due to impending respiratory failure following an aspiration event. Patient now with multiple etiologies of hypoxic respiratory failure including COPD, H. influenzae and small pulmonary emboli. Patient is on anticoagulation. Patient will be transitioned over to assist control with elevated PEEP. Will wean PEEP as tolerated. Patient has responded well to diuresis, but bicarbonate is indicating contraction alkalosis. We will decrease diuresis. 2. Septic shock secondary to presumed aspiration pneumonia Patient has been able to come off of pressor therapy at this point. Patient will continue with antibiotic therapy to complete a 10-day course. 3. COPD with exacerbation Inciting etiology appears to be aspiration event and possible pulmonary emboli. Continue current supportive measures as noted above along with bronchodilators and steroids. Wean oxygen as tolerated. Prednisone can likely be weaned over the next 12 to 14 days 4. Slurred speech Intubated and sedated. Will need to reevaluate once patient is liberated from the ventilator. 5. History of venous thrombi embolic disease/hypertension/hyperlipidemia/seizure disorder/continuous tobacco dependency Complicates care, management, recovery and prognosis. Hold home antihypertensives and diuretics for now. Continue antiepileptics. 6. Hyperkalemia Patient receiving aggressive diuresis at this time. Potassium is at lower limit of normal at 3.6, so supplementation will be added TIME: 37 minutes of critical care time, independent of procedures, was spent addressing the patient's acute on chronic hypoxemic respiratory failure, septic shock secondary to presumed aspiration pneumonia, COPD with exacerbation, review of all data and collaboration with the care team. (6 AM to 7:30 AM) Code Visit [id number]: [id number] Critical care first hour
[2019-02-02] MEDS: predniSONE 20 MG Tablet 40 MG PO (09:43)
[2019-02-02] MEDS: Chlorhexidine 15 ML PO ×2 (09:43→21:07)
[2019-02-02] MEDS: Famotidine 20 MG Tablet GT ×2 (09:45→21:00)
--- NOTE | 2019-02-02 09:49 | PCM.PN.HOSP ---
Patient Problems: Active and Suspected Problems CVA (cerebral vascular accident) (Acute) Slurred speech (Acute) Reason for Visit: Patient seen and examined. He remains intubated. No active events overnight. Patient is more alert but not able to communicate due to intubation. Unable to do complaints of review of systems. Labs and vitals reviewed. Vitals/I&O's: Vital Signs Temp Pulse Resp BP Pulse Ox 99.1 F 90 12 104/54 L 91 02/02/19 08:00 02/02/19 09:00 02/02/19 09:00 02/02/19 09:00 02/02/19 09:00 Oxygen Flow Rate (L/min) 6 Oxygen Delivery Method Mechanical Ventilator Weight: 214 lb 15.211 oz Body Mass Index (BMI) 31.9 Intake and Output for Last 24 Hours 01/31/19 02/01/19 02/02/19 23:59 23:59 23:59 Intake Total 2825.63 / 3256.13 2672.68 / 3157.28 1262.51 / 1262.51 Output Total 3650 / 4750 5225 / 6525 1750 / 1750 Balance -824.37 / -1493.87 -2552.32 / -3367.72 -487.49 / -487.49 General: Alert, - - Intubated and sedated. RASS score is 0 today. HEENT: Atraumatic, PERRLA, EOMI, Normocephalic Oral: Dry Mucosa Neck: Supple, No JVD, Negative Carotid Bruits Lungs: - - decreased breath sounds in lung bases; intubated and sedated; PEEP is [id number] Cardiovascular: Regular rate, Regular Rhythm, Normal S1, Normal S2, No murmurs Abdomen: Bowel Sounds Present, Soft, Non Tender Extremities: No clubbing, No cyanosis, No edema, Capillary Refill Less than 3 Seconds Skin: No rashes, No breakdown Musculoskeletal: No Tenderness to Palpation of Joints or Extremities Lymphatic: No Cervical, Supraclavicular, or Inguinal Adenopathy Neurological: - - intubated, sedated Microbiology Past 72 Hours 01/26/19 13:20 Blood Culture (Wb) - Right Hand Blood Culture - Final No growth in 5 days. 01/26/19 12:50 Blood Culture (Wb) - Left Hand Blood Culture - Final No growth in 5 days. 01/26/19 10:45 Sputum, Induced/Lukens Gram Stain - Final 01/26/19 10:45 Sputum, Induced/Lukens Respiratory Culture - Final Haemophilus influenzae Streptococcus pneumoniae Laboratory Results 02/01/19 04:00: Phosphorus 4.1, Magnesium 2.3 02/01/19 05:04: Specimen Type ART, Sample Site L Radial, pH Pending, Bicarbonate Actual Pending, POC Total CO2 Pending, Base Excess Pending, O2 Saturation Pending, O2 % 40, ABG pCO2 Pending, ABG pO2 57 L, Dariusz Test NA, O2 Delivery Device Vent, Vent Mode APRV, Pressure High 20.0, Pressure Low 0.0, Time High 6.0, Time Low 0.5, Blood Gas Notified Whom ICU , Blood Gas Notified Time 503 02/01/19 11:04: POC Glucose 146 H 02/01/19 11:05: Valproic Acid 68 02/01/19 17:31: POC Glucose 149 H 02/01/19 21:19: POC Glucose 131 H 02/01/19 23:42: POC Glucose 121 H 02/02/19 03:50: Sodium 139, Potassium 3.7, Chloride 91 L, Carbon Dioxide 44.0 H, Anion Gap 4 L, BUN 32 H, Creatinine 0.43 L, Estim Creat Clear Calc 180.40, Est GFR (MDRD) Af Amer 258, Est GFR (MDRD) Non-Af 214, BUN/Creatinine Ratio 74.4 H, Glucose 108 H, Calcium 8.6 02/02/19 03:50: WBC 11.6 H, RBC 3.26 L, Hgb 11.0 L, Hct 34.6 L, MCV 106.1 H, MCH 33.7 H, MCHC 31.8 L, RDW Std Deviation 53.6 H, RDW Coeff of Mohsen 14.1, Plt Count 136 L, MPV 10.2, Neut % (Auto) Not Reportable, Absolute Neuts (auto) 7.3, Absolute Lymphs (auto) 3.02, Total Counted 100, Neutrophils % (Manual) 41 L, Band Neutrophils % 22 H, Lymphocytes % (Manual) 26, Monocytes % (Manual) 3, Metamyelocytes % 8 H, Nucleated RBCs/100 WBC 2, Platelet Estimate SLT DEC, Polychromasia RARE, Hypochromasia 1+, Anisocytosis 2+, Macrocytosis 1+ 02/02/19 05:27: POC Glucose [address] 01/23/19 18:35 IMPRESSION: Chronic involutional changes of the brain. Electronically Signed: Ford Craig MD at 19:28 EST , Service support , Head MRA 01/24/19 12:20 IMPRESSION: Normal MRA of the head. No demonstrated aneurysm, dissection, stenosis, or occlusion. Electronically Signed: Renetta Diaz MD at 16:09 EST Tel , Service support , Neck MRA 01/24/19 12:20 IMPRESSION: Normal bilateral cervical carotid and vertebral arteries. Electronically Signed: Renetta Diaz MD at 16:15 EST Tel , Service support , Brain MRI 01/24/19 12:30 IMPRESSION: No acute infarct or intracranial hemorrhage. Mild involutional changes of the brain, as described above. Electronically Signed: Andrew Coleman, at 15:29 EST Tel , Service support , Chest X-Ray 01/27/19 06:29 IMPRESSION: Bibasilar pulmonary opacities with mild decrease on the right and mild increase on the left. at 0744 Reported and signed by: Vidhya Tierney MD Electronically Signed: Vidhya Tierney MD at 7:44 EST Tel , Service support , Chest CTA 01/28/19 00:00 IMPRESSION: 1. Small right middle lobe segmental pulmonary emboli. 2. Bilateral lower lobe airspace consolidations and possible atelectasis suggesting pneumonia. 3. 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 4. No CTA demonstrated arterial dissection. N.B. : The above information has been verbally conveyed by Maddie Jeffers MD to RANDY Galvez, on 01/28/2019 09:50:52 (ET). Electronically Signed: Maddie Jeffers MD at 9:55 EST , Service support , ADDENDUM: 01/28/19 1002 IMPRESSION: 1. Small right middle lobe segmental pulmonary emboli. 2. Bilateral lower lobe airspace consolidations and possible atelectasis suggesting pneumonia. 3. 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 4. No CTA demonstrated arterial dissection. N.B. : The above information has been verbally conveyed by Maddie Jeffers MD to RANDY Galvez, on 01/28/2019 09:50:52 (ET). Electronically Signed: Maddie Jeffers MD at 9:55 EST , Service support , KUB X-Ray 02/01/19 09:29 IMPRESSION: Limited study of the abdomen and pelvis which is grossly negative. Electronically Signed: Wesley Mayer, at 10:40 EST Tel , Service support , Current Medications Acetaminophen (Tylenol) 650 mg PO Q6H PRN PRN PRN Reason: Non-cardiac pain (4-1010) Last Admin: 01/25/19 15:13 Dose: 650 mg Documented by: Acetaminophen (Tylenol Liquid) 650 mg GT Q6H PRN PRN PRN Reason: TEMP>101 Al Hydroxide/Mg Hydroxide (Mylanta Ii) 15 - 30 ml PO Q4H PRN PRN PRN Reason: INDIGESTION Albuterol Sulfate (Ventolin Aerosols) 2.5 mg INHALATION Q2H PRN PRN PRN Reason: dyspnea, wheezing Last Admin: 01/26/19 09:26 Dose: 2.5 mg Documented by: Albuterol/Ipratropium (Duoneb) 3 ml INHALATION Q4HWA.RT [facility] Last Admin: 02/02/19 06:33 Dose: 3 ml Documented by: Atorvastatin Calcium (Lipitor) 80 mg GT QHS [facility] Last Admin: 02/01/19 21:13 Dose: 80 mg Documented by: Chlorhexidine Gluconate () 15 ml PO BID [facility] Last Admin: 02/02/19 09:43 Dose: 15 ml Documented by: Chlorhexidine Gluconate () 1 each TOPICAL DAILY [facility] Last Admin: 02/01/19 09:32 Dose: 1 each Documented by: Dextrose (D50w Syringe) 0 gm IV X1 PRN; Protocol PRN Reason: Hypoglycemia Divalproex Sodium (Depakote Er) 500 mg PO 0700,1300 [facility] Last Admin: 01/26/19 13:30 Dose: Not Given Documented by: Divalproex Sodium (Depakote Er) 1,000 mg PO QHS [facility] Last Admin: 01/25/19 21:41 Dose: 1,000 mg Documented by: Enoxaparin Sodium (Lovenox) 100 mg SC Q12@0600,1800 [facility] Last Admin: 02/02/19 05:29 Dose: 100 mg Documented by: Famotidine (Pepcid) 20 mg GT BID [facility] Last Admin: 02/02/19 09:45 Dose: 20 mg Documented by: Furosemide (Lasix) 40 mg IV Q8 [facility] Gabapentin (Neurontin) 300 mg GT TID [facility] Last Admin: 02/02/19 05:28 Dose: 300 mg Documented by: Glucagon () 1 mg IM .X1 PRN PRN Reason: Hypoglycemia Guaifenesin (Robitussin) 10 ml GT Q6H PRN Guaifenesin (Robitussin) 10 ml GT Q6H [facility] Last Admin: 02/02/19 05:30 Dose: 10 ml Documented by: Heparin Sodium (Porcine) (Heparin Na) 0 unit IV UD PRN; Protocol Sodium Chloride () 250 mls @ 15 mls/hr IV .[id number] PRN PRN Reason: Saline Flush Last Infusion: 01/31/19 16:27 Dose: Infused Documented by: Enteral Nutritional Formula (Vital Af 1.2 Truong Liquid) 1,000 mls @ 60 mls/hr GT .[id number] [facility] Last Admin: 02/01/19 22:43 Dose: Not Given Documented by: Fentanyl () 100 mls @ 15 mls/hr IV UD [facility]; Protocol Last Titration: 02/02/19 09:00 Dose: 100 mcg/hr, 10 mls/hr Documented by: Propofol (Diprivan) 1,000 mg in 100 mls @ 18.09 mls/hr CONT INF .Q5H32M [facility]; Protocol Last Titration: 02/02/19 09:00 Dose: 12.5 mcg/kg/min, 7.5 mls/hr Documented by: Ampicillin Sodium/Sulbactam (Sodium 3 gm/ Sodium Chloride) 112 mls @ 150 mls/hr IV Q6 [facility] Stop: 02/04/19 18:01 Last Infusion: 02/02/19 06:14 Dose: Infused Documented by: Insulin Glargine (Lantus (Bkc)) 5 units SC BID [facility] Last Admin: 02/01/19 21:19 Dose: 5 u Documented by: Insulin Human Lispro (Humalog Kwikpen (Bk)) 0 unit SC Q6 [facility]; Protocol Last Admin: 02/02/19 05:29 Dose: Not Given Documented by: Magnesium Hydroxide (Milk Of Magnesia) 30 ml GT DAILY PRN PRN Reason: Constipation Last Admin: 01/30/19 09:33 Dose: 30 ml Documented by: Nicotine (Nicoderm Cq (Pbkc)) 21 mg TRANSDERM. DAILY [facility] Last Admin: 02/02/19 09:45 Dose: 21 mg Documented by: Nitroglycerin (Nitrostat) 0.4 mg SUBLINGUAL Q5M PRN PRN Reason: CARDIAC/CHEST PAIN Ondansetron HCl (Zofran) 4 mg IV Q8H PRN PRN PRN Reason: NAUSEA/VOMITING Polyethylene Glycol (Miralax) 17 gm GT BID [facility] Last Admin: 02/02/19 09:20 Dose: Not Given Documented by: Potassium Chloride (Potassium Chl Soln) 40 meq GT BIDCM [facility] Last Admin: 02/02/19 09:43 Dose: 40 meq Documented by: Prednisone () 40 mg PO DAILY@0800 [facility] Last Admin: 02/02/19 09:43 Dose: 40 mg Documented by: Senna/Docusate Sodium (Senokot-S, Lila-Colace) 2 tablet GT BID [facility] Last Admin: 02/02/19 09:20 Dose: Not Given Documented by: Sodium Chloride () 10 - 40 ml IV UD PRN PRN Reason: SALINE FLUSH Last Admin: 02/02/19 03:16 Dose: 20 ml Documented by: Throat Lozenges (Cepacol Sore Throat Lozenge) 1 lozenge MUCOUS MEM Q2H PRN PRN PRN Reason: COUGH Valproic Acid (Depakene) 500 mg GT 4X/DAY [facility] Last Admin: 02/02/19 09:44 Dose: 500 mg Documented by: STROKE Vital Signs/Narrative: Vital Signs Temp Pulse Resp BP Pulse Ox 02/02/19 09:00 90 12 104/54 L 91 02/02/19 08:00 99.1 F 90 14 98/62 92 02/02/19 07:15 87 02/02/19 07:00 85 12 100/63 91 02/02/19 06:33 84 14 91 02/02/19 06:00 99.0 F 84 13 112/67 93 Medical Necessity - Tobacco Use Smoking Status: Current every day smoker Tobacco Use: Cigarettes Assessment/Plan All Active Problems CVA (cerebral vascular accident) (Acute) Slurred speech (Acute) COPD exacerbation (Acute) 1. Acute hypoxic respiratory failure due to aspiration pneumonia remains intubated and sedated PEEP now 18hgO0D blood cultures: no growth after 48 hours; repeat blood cultures pending sputum culture sputum culture grew Hemophilus influenza and Streptococcus pneumoniae. blood cultures showed no growth after 5 days. 2D echo: Ef of 65%, with stage 1 diastolic dysfunction and moderately dilated RV; bubble contrast study negative. now on IV unasyn; to complete 10 day course of antibiotics. critical care on board on IV lasix 40mg q8; in net positive balance by 9.39L 2. Septic shock due to aspiration pneumonia now off levophed. critical care on board on IV unasyn 3. Aspiration pneumonia: as under 1 and 2 4. Pulmonary embolism: CT chest showed small segmental right sided PE. does have a hsitory of PE and DVT coumadin was switched to eliquis on admission o/a of cross reaction between coumadin and depakote. However, PE developed whilst on eliquis, now on lovenox shots. 4. Slurred speech and double vision stroke ruled out per CT and MRI was evaluated by neurology PT/OT and speech therapy on board acetylcholine receptor antibodies pending 5. Hypertension:BP meds on hold o/a of septic shock 6. Seizure disorder: on depakote DVT prophylaxis: on lovenox Code Visit Inpatient E&M: [id number] Subs Hosp L3
--- NOTE | 2019-02-02 10:08 | CASEMGMT ---
RN CM Note: Participated in ICU Interdisciplinary rounds. Pt remains on vent, 40% O2, passed mobility screen. Anticipate SNF vs LTACH for DC planning. Awaiting PT/OT evaluations and pt's progress with PT/OT to evaluate for dc needs. Pt had declined to speak re: SNF in past, however will likely need to have physician/SW speak again with pt if SNF is recommended. Tari NOVAKN RN ACM
[2019-02-02] MEDS: CHLORHEXIDINE GLUC 2% CLOTH 1 EACH TOWELETTE TOPICAL (10:30)
[2019-02-02 11:05] LABS: CPK Total, Creatine Kinase 27 U/L (39-308); Triglycerides 126 mg/dL
[2019-02-02 12:01] LABS: Bedside Glucose 130 mg/dL (70-110)
[2019-02-02] MEDS: Vital AF 1.2 Cal Liquid 1,000 ML 60 ML GT (13:10)
[2019-02-02] MEDS: Furosemide 40 MG/4 ML Vial IV ×2 (13:12→21:00)
[2019-02-02 14:22] LABS: Pathologist Review Reviewed
[2019-02-02 14:24] LABS: Pathologist Review Reviewed
[2019-02-02] MEDS: Insulin Lispro 100 UNIT/ML INSULN.PEN SC (17:40)
[2019-02-02 18:11] LABS: Bedside Glucose 157 mg/dL (70-110)
[2019-02-02] MEDS: Propofol 10MG/Ml 1,000 MG/100 ML Bottle 7.5 MG CONT INF (19:38)
[2019-02-02] MEDS: Atorvastatin Calcium 80 MG Tablet GT (21:01)
[2019-02-02 22:50] LABS: Bedside Glucose 111 mg/dL (70-110)
[2019-02-03] VITALS (43 sets, daily range): BP systolic 81–113; BP diastolic 48–69; PULSE 65–94; RESP 12–18; TEMP 37.2–37.7; O2SAT 88–95; BMI 31.9
[2019-02-03] MEDS: guaiFENesin 10 ML UDC (200MG/10ML) GT ×5 (00:05→23:07)
[2019-02-03] MEDS: fentaNYL drip 100 ML 10 MCG IV ×2 (01:14→10:38)
[2019-02-03] MEDS: Propofol 10MG/Ml 1,000 MG/100 ML Bottle 7.5 MG CONT INF (02:58)
[2019-02-03 04:12] LABS: Hematocrit 33.5 % (40-54); Hemoglobin 10.7 g/dL (13.0-16.5); Mean Corp Hgb Conc 31.9 g/dL (32-36); Mean Corpuscular Hgb 34.2 pg (27.0-32.0); Mean Platelet Vol. 10.1 fl (6.2-12.0); POSITIVE COUNT YES; POSITIVE MORPHOLOGY YES; Platelet Count 125 K/mm3 (150-450); RBC Distribution Width CV 14.8 % (11.6-14.6); RBC Distribution Width SD 54.1 fl (35.1-43.9); Red Blood Count 3.13 M/mm3 (4.6-6.2); White Blood Count 9.9 K/mm3 (4.4-11.0)
[2019-02-03 04:19] LABS: Differential Indicated MANUAL DIFF
[2019-02-03 04:24] LABS: Anion Gap 4 (5-15); BUN 30 mg/dL (7-18); BUN/Creat Ratio 64.2 RATIO (10-20); Calcium,Total 8.6 mg/dL (8.5-10.1); Chloride 92 mmol/L (98-107); Creatinine, Serum 0.47 mg/dL (0.70-1.30); EST Glomerular Filtration Rate 194 mL/min (>60); Est Glom Filt Rate - Afr Amer 235 mL/min (>60); Estimated Creatinine Clearance 165.05 ml/min; Glucose 106 mg/dL (74-106); Potassium 3.7 mmol/L (3.5-5.1); Sodium Level 139 mmol/L (136-145)
--- NOTE | 2019-02-03 04:26 | NURSING ---
Sedation was shut off and sedation vacation was attempted with this pt, he did not tolerate. Pt became restless and was attempting to pull at his ETT at this time, sedation was restarted.
[2019-02-03 04:52] LABS: Lymphocyte 27 % (19-41); Metamyelocyte 7 % (0-1); Monocyte 2 % (0-10); Myelocyte 2 (0-0); Neutrophil-Band 17 % (0-5); Neutrophil-Segmented 45 % (47-70); Total Cells Counted 100 (MANUAL DIFF)
[2019-02-03 04:54] LABS: Absolute Lymphocyte Count 2.67 X10^3/uL (0.83-4.51); Absolute Neutrophil Count 6.1 X10^3/uL (2.0-7.7); Lymphocyte # 2.67 X10^3/ul (4.0); Macrocytosis 2+; Neutrophil # 6.14 X10^3/uL (2.7-7.7); Platelet Estimate SLT DEC (ADEQ)
[2019-02-03 04:55] LABS: Anisocytosis 1+; Polychromasia RARE
[2019-02-03] MEDS: Furosemide 40 MG/4 ML Vial IV ×3 (05:52→23:03)
[2019-02-03] MEDS: Gabapentin 300 MG Capsule GT ×3 (05:53→23:06)
[2019-02-03] MEDS: Enoxaparin 100 MG/ML Syringe SC ×2 (05:53→17:25)
[2019-02-03] MEDS: 0.9% Saline Lock 10 ML Syringe IV (05:56)
[2019-02-03 06:06] LABS: Bedside Glucose 89 mg/dL (70-110)
[2019-02-03] MEDS: Ipratropium/Albuterol Sulfate 3 ML AMPUL.NEB INHALATION ×5 (06:42→22:55)
--- NOTE | 2019-02-03 07:38 | PCM.PN.INT ---
Subjective: Patient did okay overnight. Patient has been having some diarrhea, but no black stools were noted. Patient did have a desaturation overnight requiring increase to 45%. Patient does remain on 12 of PEEP. Patient was appropriate this morning, but complaining of left leg pain. Patient has continued to get up with max assist with therapy sitting at the side of the bed. General: Alert, Cooperative, No apparent distress, - - Good vent synchrony. RASS 0. Anasarca is improving. HEENT: Atraumatic, PERRLA, EOMI, Normocephalic, - - Scleral injection without icterus Oral: Moist Mucosa, No Gingival or Mucosal Lesions/ Ulcerations Neck: Supple, No JVD, No Nodes, Trachea Midline Lungs: No rhonchi, No wheeze, No rales, Diminished, - - Symmetric expansion. Cardiovascular: Regular rate, Regular Rhythm, Normal S1, Normal S2, No murmurs, No rub noted, No Gallop Abdomen: Soft, Non-Distended, Hyperactive Bowel Sounds, Tender - To deep palpation. No guarding or rebound noted. Extremities: No cyanosis, Capillary Refill Less than 3 Seconds, Edema - Continues to improve Skin: No rashes, No breakdown Musculoskeletal: Tenderness - Palpation of lower extremities Lymphatic: No Cervical, Supraclavicular, or Inguinal Adenopathy Neurological: Cranial nerves II-XII grossly intact, Neuro grossly intact, Motor Exam 5/5 strength throughout Psych/Mental Status: Flat Affect Vital Signs Temp Pulse Resp BP Pulse Ox 37.3 C 83 12 102/58 L 92 02/03/19 06:00 02/03/19 06:00 02/03/19 06:00 02/03/19 06:00 02/03/19 06:00 Oxygen Flow Rate (L/min) 6 Oxygen Delivery Method Mechanical Ventilator Weight: 97.7 kg Body Mass Index (BMI) 31.9 Intake and Output for Last 24 Hours 02/01/19 02/02/19 02/03/19 23:59 23:59 23:59 Intake Total 2672.68 / 3157.28 3367.28 / 3384.78 1097.78 / 1097.78 Output Total 5225 / 6525 4950 / 4950 350 / 350 Balance -2552.32 / -3367.72 -1582.72 / -1565.22 747.78 / 747.78 Labs (Last 48 Hours) 02/01/19 02/01/19 02/01/19 04:00 04:00 05:04 WBC RBC Hgb Hct MCV MCH MCHC RDW Std Deviation RDW Coeff of Mohsen Plt Count MPV Neut % (Auto) Absolute Neuts (auto) Absolute Lymphs (auto) Total Counted Neutrophils % (Manual) Band Neutrophils % Lymphocytes % (Manual) Monocytes % (Manual) Metamyelocytes % Myelocytes % Nucleated RBCs/100 WBC Diff Path Review Reviewed Platelet Estimate Polychromasia Hypochromasia Anisocytosis Macrocytosis Specimen Type ART Sample Site L Radial pH Pending Bicarbonate Actual Pending POC Total CO2 Pending Base Excess Pending O2 Saturation Pending O2 % 40 ABG pCO2 Pending ABG pO2 57 L Dariusz Test NA O2 Delivery Device Vent Vent Mode APRV Pressure High 20.0 Pressure Low 0.0 Time High 6.0 Time Low 0.5 Blood Gas Notified Whom ICU MD Blood Gas Notified Time 503 Sodium Potassium Chloride Carbon Dioxide Anion Gap BUN Creatinine Estim Creat Clear Calc Est GFR (MDRD) Af Amer Est GFR (MDRD) Non-Af BUN/Creatinine Ratio Glucose Calcium Phosphorus 4.1 Magnesium 2.3 Total Creatine Kinase Triglycerides Valproic Acid POC Glucose 02/01/19 02/01/19 02/01/19 05:10 11:04 11:05 WBC RBC Hgb Hct MCV MCH MCHC RDW Std Deviation RDW Coeff of Mohsen Plt Count MPV Neut % (Auto) Absolute Neuts (auto) Absolute Lymphs (auto) Total Counted Neutrophils % (Manual) Band Neutrophils % Lymphocytes % (Manual) Monocytes % (Manual) Metamyelocytes % Myelocytes % Nucleated RBCs/100 WBC Diff Path Review Platelet Estimate Polychromasia Hypochromasia Anisocytosis Macrocytosis Specimen Type ART Sample Site L Radial pH 7.53 H Bicarbonate Actual 50.3 H POC Total CO2 > 50 Base Excess 28 H O2 Saturation 91 L O2 % 40 ABG pCO2 60.6 H ABG pO2 57 L Dariusz Test NA O2 Delivery Device Vent Vent Mode APRV Pressure High 20.0 Pressure Low 0.0 Time High 6.0 Time Low 0.5 Blood Gas Notified Whom ICU MD Blood Gas Notified Time 503 Sodium Potassium Chloride Carbon Dioxide Anion Gap BUN Creatinine Estim Creat Clear Calc Est GFR (MDRD) Af Amer Est GFR (MDRD) Non-Af BUN/Creatinine Ratio Glucose Calcium Phosphorus Magnesium Total Creatine Kinase Triglycerides Valproic Acid 68 POC Glucose 146 H 02/01/19 02/01/19 02/01/19 17:31 21:19 23:42 WBC RBC Hgb Hct MCV MCH MCHC RDW Std Deviation RDW Coeff of Mohsen Plt Count MPV Neut % (Auto) Absolute Neuts (auto) Absolute Lymphs (auto) Total Counted Neutrophils % (Manual) Band Neutrophils % Lymphocytes % (Manual) Monocytes % (Manual) Metamyelocytes % Myelocytes % Nucleated RBCs/100 WBC Diff Path Review Platelet Estimate Polychromasia Hypochromasia Anisocytosis Macrocytosis Specimen Type Sample Site pH Bicarbonate Actual POC Total CO2 Base Excess O2 Saturation O2 % ABG pCO2 ABG pO2 Dariusz Test O2 Delivery Device Vent Mode Pressure High Pressure Low Time High Time Low Blood Gas Notified Whom Blood Gas Notified Time Sodium Potassium Chloride Carbon Dioxide Anion Gap BUN Creatinine Estim Creat Clear Calc Est GFR (MDRD) Af Amer Est GFR (MDRD) Non-Af BUN/Creatinine Ratio Glucose Calcium Phosphorus Magnesium Total Creatine Kinase Triglycerides Valproic Acid POC Glucose 149 H 131 H 121 H 02/02/19 02/02/19 02/02/19 03:50 03:50 03:50 WBC 11.6 H RBC 3.26 L Hgb 11.0 L Hct 34.6 L MCV 106.1 H MCH 33.7 H MCHC 31.8 L RDW Std Deviation 53.6 H RDW Coeff of Mohsen 14.1 Plt Count 136 L MPV 10.2 Neut % (Auto) Not Reportable Absolute Neuts (auto) 7.3 Absolute Lymphs (auto) 3.02 Total Counted 100 Neutrophils % (Manual) 41 L Band Neutrophils % 22 H Lymphocytes % (Manual) 26 Monocytes % (Manual) 3 Metamyelocytes % 8 H Myelocytes % Nucleated RBCs/100 WBC 2 Diff Path Review Reviewed Platelet Estimate SLT DEC Polychromasia RARE Hypochromasia 1+ Anisocytosis 2+ Macrocytosis 1+ Specimen Type Sample Site pH Bicarbonate Actual POC Total CO2 Base Excess O2 Saturation O2 % ABG pCO2 ABG pO2 Dariusz Test O2 Delivery Device Vent Mode Pressure High Pressure Low Time High Time Low Blood Gas Notified Whom Blood Gas Notified Time Sodium 139 Potassium 3.7 Chloride 91 L Carbon Dioxide 44.0 H Anion Gap 4 L BUN 32 H Creatinine 0.43 L Estim Creat Clear Calc 180.40 Est GFR (MDRD) Af Amer 258 Est GFR (MDRD) Non-Af 214 BUN/Creatinine Ratio 74.4 H Glucose 108 H Calcium 8.6 Phosphorus Magnesium Total Creatine Kinase 27 L Triglycerides 126 Valproic Acid POC Glucose 02/02/19 02/02/19 02/02/19 05:27 11:37 17:37 WBC RBC Hgb Hct MCV MCH MCHC RDW Std Deviation RDW Coeff of Mohsen Plt Count MPV Neut % (Auto) Absolute Neuts (auto) Absolute Lymphs (auto) Total Counted Neutrophils % (Manual) Band Neutrophils % Lymphocytes % (Manual) Monocytes % (Manual) Metamyelocytes % Myelocytes % Nucleated RBCs/100 WBC Diff Path Review Platelet Estimate Polychromasia Hypochromasia Anisocytosis Macrocytosis Specimen Type Sample Site pH Bicarbonate Actual POC Total CO2 Base Excess O2 Saturation O2 % ABG pCO2 ABG pO2 Dariusz Test O2 Delivery Device Vent Mode Pressure High Pressure Low Time High Time Low Blood Gas Notified Whom Blood Gas Notified Time Sodium Potassium Chloride Carbon Dioxide Anion Gap BUN Creatinine Estim Creat Clear Calc Est GFR (MDRD) Af Amer Est GFR (MDRD) Non-Af BUN/Creatinine Ratio Glucose Calcium Phosphorus Magnesium Total Creatine Kinase Triglycerides Valproic Acid POC Glucose 97 130 H 157 H 02/02/19 02/03/19 02/03/19 22:38 04:05 04:05 WBC 9.9 RBC 3.13 L Hgb 10.7 L Hct 33.5 L MCV 107.0 H MCH 34.2 H MCHC 31.9 L RDW Std Deviation 54.1 H RDW Coeff of Mohsen 14.8 H Plt Count 125 L MPV 10.1 Neut % (Auto) Not Reportable Absolute Neuts (auto) 6.1 Absolute Lymphs (auto) 2.67 Total Counted 100 Neutrophils % (Manual) 45 L Band Neutrophils % 17 H Lymphocytes % (Manual) 27 Monocytes % (Manual) 2 Metamyelocytes % 7 H Myelocytes % 2 H Nucleated RBCs/100 WBC Diff Path Review May foll Platelet Estimate SLT DEC Polychromasia RARE Hypochromasia Anisocytosis 1+ Macrocytosis 2+ Specimen Type Sample Site pH Bicarbonate Actual POC Total CO2 Base Excess O2 Saturation O2 % ABG pCO2 ABG pO2 Dariusz Test O2 Delivery Device Vent Mode Pressure High Pressure Low Time High Time Low Blood Gas Notified Whom Blood Gas Notified Time Sodium 139 Potassium 3.7 Chloride 92 L Carbon Dioxide 43.0 H Anion Gap 4 L BUN 30 H Creatinine 0.47 L Estim Creat Clear Calc 165.05 Est GFR (MDRD) Af Amer 235 Est GFR (MDRD) Non-Af 194 BUN/Creatinine Ratio 64.2 H Glucose 106 Calcium 8.6 Phosphorus Magnesium Total Creatine Kinase Triglycerides Valproic Acid POC Glucose 111 H 02/03/19 05:47 WBC RBC Hgb Hct MCV MCH MCHC RDW Std Deviation RDW Coeff of Mohsen Plt Count MPV Neut % (Auto) Absolute Neuts (auto) Absolute Lymphs (auto) Total Counted Neutrophils % (Manual) Band Neutrophils % Lymphocytes % (Manual) Monocytes % (Manual) Metamyelocytes % Myelocytes % Nucleated RBCs/100 WBC Diff Path Review Platelet Estimate Polychromasia Hypochromasia Anisocytosis Macrocytosis Specimen Type Sample Site pH Bicarbonate Actual POC Total CO2 Base Excess O2 Saturation O2 % ABG pCO2 ABG pO2 Dariusz Test O2 Delivery Device Vent Mode Pressure High Pressure Low Time High Time Low Blood Gas Notified Whom Blood Gas Notified Time Sodium Potassium Chloride Carbon Dioxide Anion Gap BUN Creatinine Estim Creat Clear Calc Est GFR (MDRD) Af Amer Est GFR (MDRD) Non-Af BUN/Creatinine Ratio Glucose Calcium Phosphorus Magnesium Total Creatine Kinase Triglycerides Valproic Acid POC Glucose 89 Medical Necessity - Tobacco Use Smoking Status: Current every day smoker Tobacco Use: Cigarettes Assessment/Plan All Active Problems CVA (cerebral vascular accident) (Acute) Slurred speech (Acute) COPD exacerbation (Acute) RECOMMENDATIONS: 1. Continue assist control. Wean PEEP as tolerated 2. Continue Unasyn to complete a 10-day course 3. Continue current diuretic therapy and potassium repletion 4. Continue to wean FiO2 and PPI to maintain an oxygen saturation at or above 90%. 5. Continue bronchodilators. Likely wean prednisone tomorrow 6. Continue tube feeds as ordered. 7. Continue appropriate ICU prophylaxis. IMPRESSIONS: 1. Acute on chronic hypoxemic respiratory failure secondary to presumed aspiration pneumonia The patient was emergently transferred to the ICU on the morning of January 26, where he did require intubation due to impending respiratory failure following an aspiration event. Patient now with multiple etiologies of hypoxic respiratory failure including COPD, H. influenzae and small pulmonary emboli. Patient is on anticoagulation. Patient continues to improve with diuresis, but is still requiring significant PEEP to maintain saturations. We will continue diuresis. Patient is being treated with antibiotics 2. Septic shock secondary to presumed aspiration pneumonia Patient has been able to come off of pressor therapy at this point. Patient will continue with antibiotic therapy to complete a 10-day course. 3. COPD with exacerbation Inciting etiology appears to be aspiration event and possible pulmonary emboli. Continue current supportive measures as noted above along with bronchodilators and steroids. Wean oxygen as tolerated. Prednisone can likely be weaned over the next 12 to 14 days. Decrease prednisone tomorrow. 4. Slurred speech Intubated and sedated. Will need to reevaluate once patient is liberated from the ventilator. 5. History of venous thrombi embolic disease/hypertension/hyperlipidemia/seizure disorder/continuous tobacco dependency Complicates care, management, recovery and prognosis. Hold home antihypertensives and diuretics for now. Continue antiepileptics. 6. Hyperkalemia Patient receiving aggressive diuresis at this time. Potassium appears to remain stable with current supplementation regimen TIME: 35 minutes of critical care time, independent of procedures, was spent addressing the patient's acute on chronic hypoxemic respiratory failure, septic shock secondary to presumed aspiration pneumonia, COPD with exacerbation, review of all data and collaboration with the care team. (5:45 AM to 6:45 AM) Code Visit 9xxxx: [id number] Critical care first hour
--- NOTE | 2019-02-03 09:15 | CM.UR ---
Participated in interdisciplinary rounds. No family present. ex- is HCPOA but she doesn't come to visit. Remains intubated on vent (day 9) with tube feeds. anticipating placing trach and peg tube next week if no improvement. Still fluid overloaded but gently diuresing. Dr. Gee said we're probably looking at LTACH. Diane Gastelum RN, [facility].
--- NOTE | 2019-02-03 09:42 | PN_ITS ---
Patient Problems: Active and Suspected Problems CVA (cerebral vascular accident) (Acute) Slurred speech (Acute) Reason for Visit: Patient seen and examined. He still remains intubated and sedated. Patient is able to open his eyes and responds to voice. RASS score is 0. Labs and vitals reviewed. BP running low this mornin at 90/57. Patient has a mild low grade fever at 99.2F. Wbc is down to 9.9. Vitals/I&O's: Vital Signs Temp Pulse Resp BP Pulse Ox 99.2 F H 83 12 90/57 L 92 02/03/19 08:00 02/03/19 08:00 02/03/19 08:00 02/03/19 08:00 02/03/19 08:00 Oxygen Flow Rate (L/min) 6 Oxygen Delivery Method Mechanical Ventilator Weight: 215 lb 6.266 oz Body Mass Index (BMI) 31.9 Intake and Output for Last 24 Hours 02/01/19 02/02/19 02/03/19 23:59 23:59 23:59 Intake Total 2672.68 / 3157.28 3367.28 / 3384.78 1121.06 / 1121.06 Output Total 5225 / 6525 4950 / 4950 350 / 350 Balance -2552.32 / -3367.72 -1582.72 / -1565.22 771.06 / 771.06 General: Alert, - - Intubated and sedated. RASS score is 0 today. HEENT: Atraumatic, PERRLA, EOMI, Normocephalic Oral: Dry Mucosa Neck: Supple, No JVD, Negative Carotid Bruits Lungs: - - decreased breath sounds in lung bases; remains intubated and sedated Cardiovascular: Regular rate, Regular Rhythm, Normal S1, Normal S2, No murmurs Abdomen: Bowel Sounds Present, Soft, Non Tender Extremities: No clubbing, No cyanosis, No edema, Capillary Refill Less than 3 Seconds Skin: No rashes, No breakdown Musculoskeletal: No Tenderness to Palpation of Joints or Extremities Lymphatic: No Cervical, Supraclavicular, or Inguinal Adenopathy Neurological: - - intubated, sedated Microbiology Past 72 Hours 01/26/19 13:20 Blood Culture (Wb) - Right Hand Blood Culture - Final No growth in 5 days. 01/26/19 12:50 Blood Culture (Wb) - Left Hand Blood Culture - Final No growth in 5 days. Laboratory Results 02/01/19 04:00: Diff Path Review Reviewed 02/02/19 03:50: Diff Path Review Reviewed 02/02/19 03:50: Total Creatine Kinase 27 L, Triglycerides 126 02/02/19 11:37: POC Glucose 130 H 02/02/19 17:37: POC Glucose 157 H 02/02/19 22:38: POC Glucose 111 H 02/03/19 04:05: WBC 9.9, RBC 3.13 L, Hgb 10.7 L, Hct 33.5 L, MCV 107.0 H, MCH 34.2 H, MCHC 31.9 L, RDW Std Deviation 54.1 H, RDW Coeff of Mohsen 14.8 H, Plt Count 125 L, MPV 10.1, Neut % (Auto) Not Reportable, Absolute Neuts (auto) 6.1, Absolute Lymphs (auto) 2.67, Total Counted 100, Neutrophils % (Manual) 45 L, Band Neutrophils % 17 H, Lymphocytes % (Manual) 27, Monocytes % (Manual) 2, Metamyelocytes % 7 H, Myelocytes % 2 H, Diff Path Review May foll, Platelet Estimate SLT DEC, Polychromasia RARE, Anisocytosis 1+, Macrocytosis 2+ 02/03/19 04:05: Sodium 139, Potassium 3.7, Chloride 92 L, Carbon Dioxide 43.0 H, Anion Gap 4 L, BUN 30 H, Creatinine 0.47 L, Estim Creat Clear Calc 165.05, Est GFR (MDRD) Af Amer 235, Est GFR (MDRD) Non-Af 194, BUN/Creatinine Ratio 64.2 H, Glucose 106, Calcium 8.6 02/03/19 05:47: POC Glucose 89 Current Medications Acetaminophen (Tylenol) 650 mg PO Q6H PRN PRN PRN Reason: Non-cardiac pain (-12/14) Last Admin: 01/25/19 15:13 Dose: 650 mg Documented by: Acetaminophen (Tylenol Liquid) 650 mg GT Q6H PRN PRN PRN Reason: TEMP>101 Al Hydroxide/Mg Hydroxide (Mylanta Ii) 15 - 30 ml PO Q4H PRN PRN PRN Reason: INDIGESTION Albuterol Sulfate (Ventolin Aerosols) 2.5 mg INHALATION Q2H PRN PRN PRN Reason: dyspnea, wheezing Last Admin: 01/26/19 09:26 Dose: 2.5 mg Documented by: Albuterol/Ipratropium (Duoneb) 3 ml INHALATION Q4HWA.RT [facility] Last Admin: 02/03/19 06:42 Dose: 3 ml Documented by: Atorvastatin Calcium (Lipitor) 80 mg GT QHS [facility] Last Admin: 02/02/19 21:01 Dose: 80 mg Documented by: Chlorhexidine Gluconate () 15 ml PO BID [facility] Last Admin: 02/02/19 21:07 Dose: 15 ml Documented by: Chlorhexidine Gluconate () 1 each TOPICAL DAILY [facility] Last Admin: 02/02/19 10:30 Dose: 1 each Documented by: Dextrose (D50w Syringe) 0 gm IV X1 PRN; Protocol PRN Reason: Hypoglycemia Divalproex Sodium (Depakote Er) 500 mg PO 0700,1300 [facility] Last Admin: 01/26/19 13:30 Dose: Not Given Documented by: Divalproex Sodium (Depakote Er) 1,000 mg PO QHS [facility] Last Admin: 01/25/19 21:41 Dose: 1,000 mg Documented by: Enoxaparin Sodium (Lovenox) 100 mg SC Q12@0600,1800 [facility] Last Admin: 02/03/19 05:53 Dose: 100 mg Documented by: Famotidine (Pepcid) 20 mg GT BID [facility] Last Admin: 02/02/19 21:00 Dose: 20 mg Documented by: Furosemide (Lasix) 40 mg IV Q8 [facility] Last Admin: 02/03/19 05:52 Dose: 40 mg Documented by: Gabapentin (Neurontin) 300 mg GT TID [facility] Last Admin: 02/03/19 05:53 Dose: 300 mg Documented by: Glucagon () 1 mg IM .X1 PRN PRN Reason: Hypoglycemia Guaifenesin (Robitussin) 10 ml GT Q6H PRN Guaifenesin (Robitussin) 10 ml GT Q6H [facility] Last Admin: 02/03/19 05:54 Dose: 10 ml Documented by: Heparin Sodium (Porcine) (Heparin Na) 0 unit IV UD PRN; Protocol Sodium Chloride () 250 mls @ 15 mls/hr IV .[id number] PRN PRN Reason: Saline Flush Last Infusion: 02/03/19 06:35 Dose: 15 mls/hr Documented by: Enteral Nutritional Formula (Vital Af 1.2 Truong Liquid) 1,000 mls @ 60 mls/hr GT .[id number] [facility] Last Admin: 02/03/19 08:44 Dose: Not Given Documented by: Fentanyl () 100 mls @ 15 mls/hr IV UD [facility]; Protocol Last Titration: 02/03/19 08:00 Dose: 125 mcg/hr, 12.5 mls/hr Documented by: Propofol (Diprivan) 1,000 mg in 100 mls @ 18.09 mls/hr CONT INF .Q5H32M [facility]; Protocol Last Titration: 02/03/19 08:00 Dose: 17.5 mcg/kg/min, 10.6 mls/hr Documented by: Ampicillin Sodium/Sulbactam (Sodium 3 gm/ Sodium Chloride) 112 mls @ 150 mls/hr IV Q6 [facility] Stop: 02/04/19 18:01 Last Infusion: 02/03/19 06:35 Dose: Infused Documented by: Insulin Glargine (Lantus (Bkc)) 5 units SC BID [facility] Last Admin: 02/02/19 22:42 Dose: 5 u Documented by: Insulin Human Lispro (Humalog Kwikpen (Bk)) 0 unit SC Q6 [facility]; Protocol Last Admin: 02/03/19 05:52 Dose: Not Given Documented by: Magnesium Hydroxide (Milk Of Magnesia) 30 ml GT DAILY PRN PRN Reason: Constipation Last Admin: 01/30/19 09:33 Dose: 30 ml Documented by: Nicotine (Nicoderm Cq (Pbkc)) 21 mg TRANSDERM. DAILY [facility] Last Admin: 02/02/19 09:45 Dose: 21 mg Documented by: Nitroglycerin (Nitrostat) 0.4 mg SUBLINGUAL Q5M PRN PRN Reason: CARDIAC/CHEST PAIN Ondansetron HCl (Zofran) 4 mg IV Q8H PRN PRN PRN Reason: NAUSEA/VOMITING Polyethylene Glycol (Miralax) 17 gm GT BID [facility] Last Admin: 02/02/19 20:54 Dose: Not Given Documented by: Potassium Chloride (Potassium Chl Soln) 40 meq GT BIDCM [facility] Last Admin: 02/02/19 17:40 Dose: 40 meq Documented by: Prednisone () 40 mg PO DAILY@0800 [facility] Last Admin: 02/02/19 09:43 Dose: 40 mg Documented by: Senna/Docusate Sodium (Senokot-S, Lila-Colace) 2 tablet GT BID [facility] Last Admin: 02/02/19 20:54 Dose: Not Given Documented by: Sodium Chloride () 10 - 40 ml IV UD PRN PRN Reason: SALINE FLUSH Last Admin: 02/03/19 05:56 Dose: 40 ml Documented by: Throat Lozenges (Cepacol Sore Throat Lozenge) 1 lozenge MUCOUS MEM Q2H PRN PRN PRN Reason: COUGH Valproic Acid (Depakene) 500 mg GT 4X/DAY [facility] Last Admin: 02/02/19 21:00 Dose: 500 mg Documented by: STROKE Vital Signs/Narrative: Vital Signs Temp Pulse Resp BP Pulse Ox 02/03/19 08:00 99.2 F H 83 12 90/57 L 92 02/03/19 07:25 84 12 89 02/03/19 07:00 99.3 F H 82 12 83/52 L 94 02/03/19 06:42 78 12 91 02/03/19 06:00 99.1 F 83 12 102/58 L 92 Medical Necessity - Tobacco Use Smoking Status: Current every day smoker Tobacco Use: Cigarettes Assessment/Plan All Active Problems CVA (cerebral vascular accident) (Acute) Slurred speech (Acute) COPD exacerbation (Acute) 1. Acute hypoxic respiratory failure due to aspiration pneumonia * remains intubated and sedated * had a low grade fever this morning * blood cultures: no growth after 48 hours; repeat blood cultures show no growth after 5 days. urine cultures also negative * sputum culture sputum culture grew Hemophilus influenza and Streptococcus pneumoniae. * 2D echo: Ef of 65%, with stage 1 diastolic dysfunction and moderately dilated RV; bubble contrast study negative. * now on IV unasyn; to complete 10 day course of antibiotics. * critical care on board * on IV lasix 40mg q8; in net positive balance by 9.068L * 2. Septic shock due to aspiration pneumonia * now off levophed. * critical care on board * on IV unasyn * 3. Aspiration pneumonia: as under 1 and 2 4. Pulmonary embolism: * CT chest showed small segmental right sided PE. does have a hsitory of PE and DVT * coumadin was switched to eliquis on admission o/a of cross reaction between coumadin and depakote. * on lovenox now * 4. Slurred speech and double vision * stroke ruled out per CT and MRI * was evaluated by neurology * PT/OT and speech therapy on board * acetylcholine receptor antibodies pending * 5. Hypertension:BP meds on hold o/a of septic shock 6. Seizure disorder: on depakote DVT prophylaxis: on lovenox Code Visit Inpatient E&M: [id number] Subs Hosp L3
[2019-02-03] MEDS: predniSONE 20 MG Tablet 40 MG PO (09:58)
[2019-02-03] MEDS: Chlorhexidine 15 ML PO ×2 (09:59→23:03)
[2019-02-03] MEDS: CHLORHEXIDINE GLUC 2% CLOTH 1 EACH TOWELETTE TOPICAL (09:59)
[2019-02-03] MEDS: Famotidine 20 MG Tablet GT ×2 (10:00→23:06)
[2019-02-03] MEDS: Propofol 10MG/Ml 1,000 MG/100 ML Bottle 13.6 MG CONT INF (12:42)
[2019-02-03] MEDS: Insulin Lispro 100 UNIT/ML INSULN.PEN SC ×2 (12:45→17:31)
[2019-02-03 13:16] LABS: Bedside Glucose 167 mg/dL (70-110)
[2019-02-03 17:56] LABS: Bedside Glucose 153 mg/dL (70-110)
[2019-02-03] MEDS: Propofol 10MG/Ml 1,000 MG/100 ML Bottle 4.4 MG CONT INF (19:42)
[2019-02-03] MEDS: fentaNYL drip 100 ML 12.5 MCG IV (19:43)
[2019-02-03] MEDS: Vital AF 1.2 Cal Liquid 1,000 ML 60 ML GT (21:50)
[2019-02-03] MEDS: Senna/Docusate Sodium 1 Tablet 2 TABLET GT (23:05)
[2019-02-03] MEDS: Atorvastatin Calcium 80 MG Tablet GT (23:05)
[2019-02-04] VITALS (42 sets, daily range): BP systolic 80–109; BP diastolic 45–64; PULSE 66–97; RESP 12–20; TEMP 37.1–37.3; O2SAT 89–100; BMI 31.9
[2019-02-04 01:46] LABS: Bedside Glucose 124 mg/dL (70-110)
[2019-02-04] MEDS: fentaNYL drip 100 ML 12.5 MCG IV ×3 (03:02→20:52)
[2019-02-04] MEDS: Propofol 10MG/Ml 1,000 MG/100 ML Bottle 10.3 MG CONT INF (03:04)
--- NOTE | 2019-02-04 03:30 | NURSING ---
After morning bath pt began to desat on monitor, increased work of breathing. Respiratory therapy notified, morning CXR obtained.
[2019-02-04] MEDS: Ipratropium/Albuterol Sulfate 3 ML AMPUL.NEB INHALATION ×5 (03:33→18:45)
--- NOTE | 2019-02-04 03:37 | RAD_ITS ---
STUDY: X-RAY CHEST REASON FOR EXAM: Male, 63 years old. Endotracheal tube placement. TECHNIQUE: Single AP portable view of the chest. COMPARISON: 01/27/2019. FINDINGS: There is a right-sided PICC line with the tip in the distal SVC. The nasogastric tube has the tip below the diaphragm and projecting at approximately the gastric body junction with the antrum. The endotracheal tube has the tip approximately 4 cm above ciro. The lungs are normally expanded. There is right lower lobe density with sharp demarcation which could represent lung consolidation/atelectasis. The left hemithorax is clear. There is no demonstrated pleural abnormality. Normal size heart. Normal mediastinum and angie. Normal visualized pulmonary arteries. There is atherosclerotic calcification of the aortic arch with tortuosity. Suboptimally visualized thoracic spine. Normal visualized ribs, clavicles, and shoulders. There is no demonstrated abnormality of the visualized soft tissue structures of the upper abdomen. RAD/Chest 1 View (Portable) IMPRESSION: Right lower lobe consolidation suggestive of infiltrate and/or atelectasis. Lines and tubes as described above. Electronically Signed: Elizabet Aguilar MD at 3:57 EST , Service support ,
--- NOTE | 2019-02-04 03:45 | CPS ---
Pt's sats dropping in the mid 80's after given a bath early this morning. FiO2 was increased to 100% and PEEP increased to 12. Pt lavaged and thick secretions were suctioned out of ET tube. Pt recovered and FiO2 decreased to 70% but PEEP left at 12. Pts SpO2 90-93%.
[2019-02-04] MEDS: Enoxaparin 100 MG/ML Syringe SC ×2 (05:04→17:02)
[2019-02-04] MEDS: Gabapentin 300 MG Capsule GT ×3 (05:04→21:43)
[2019-02-04] MEDS: Furosemide 40 MG/4 ML Vial IV (05:04)
[2019-02-04] MEDS: guaiFENesin 10 ML UDC (200MG/10ML) GT ×4 (05:05→23:44)
[2019-02-04 05:21] LABS: Bedside Glucose 91 mg/dL (70-110)
[2019-02-04 05:29] LABS: Hematocrit 32.4 % (40-54); Hemoglobin 10.2 g/dL (13.0-16.5); Mean Corp Hgb Conc 31.5 g/dL (32-36); Mean Platelet Vol. 10.6 fl (6.2-12.0); POSITIVE COUNT YES; POSITIVE MORPHOLOGY YES; Platelet Count 120 K/mm3 (150-450); RBC Distribution Width CV 14.6 % (11.6-14.6); RBC Distribution Width SD 55.2 fl (35.1-43.9); White Blood Count 9.5 K/mm3 (4.4-11.0)
[2019-02-04 05:50] LABS: Anion Gap 3 (5-15); BUN 29 mg/dL (7-18); Calcium,Total 8.5 mg/dL (8.5-10.1); Chloride 94 mmol/L (98-107); EST Glomerular Filtration Rate 230 mL/min (>60); Est Glom Filt Rate - Afr Amer 278 mL/min (>60); Estimated Creatinine Clearance 193.93 ml/min; Glucose 95 mg/dL (74-106); Potassium 3.7 mmol/L (3.5-5.1); Sodium Level 138 mmol/L (136-145)
[2019-02-04 06:23] LABS: Differential Indicated MANUAL DIFF
[2019-02-04 06:52] LABS: Absolute Lymphocyte Count 2.46 X10^3/uL (0.83-4.51); Absolute Neutrophil Count 5.4 X10^3/uL (2.0-7.7); Eosinophil 1 % (0-5); Lymphocyte 26 % (19-41); Lymphocyte # 2.46 X10^3/ul (4.0); Monocyte 1 % (0-10); Neutrophil # 5.38 X10^3/uL (2.7-7.7); Neutrophil-Band 1 % (0-5); Neutrophil-Segmented 71 % (47-70); Platelet Estimate ADEQUATE (ADEQ); Red Cell Morphology NORM C+C NORMAL (NORM C&C); Total Cells Counted 100 (MANUAL DIFF)
--- NOTE | 2019-02-04 07:12 | PN_ITS ---
Subjective: The patient did well through most of the day yesterday and overnight. However, this morning while receiving a bath, patient developed a mucous plug with significant desaturation. Patient had been down to 10 of PEEP and 40%, but had to be elevated to 12 of PEEP and 70%. Patient's sedation was increased to help with vent synchrony, so spontaneous awakening trial was not completed. Patient continues to tolerate tube feeds. General: - - Intubated and sedated. RASS -2. Anasarca improved. HEENT: Atraumatic, PERRLA, EOMI, Normocephalic, - - Scleral injection without icterus Oral: Moist Mucosa, No Gingival or Mucosal Lesions/ Ulcerations Neck: Supple, No JVD, No Nodes, Trachea Midline Lungs: No wheeze, No rales, Diminished, Rhonchi - Right base, - - Chest x-ray shows partial collapse of right lower lobe Cardiovascular: Regular rate, Regular Rhythm, Normal S1, Normal S2, No murmurs, No rub noted, No Gallop Abdomen: Bowel Sounds Present, Soft, Non Tender, Non-Distended Extremities: No cyanosis, No edema, Capillary Refill Less than 3 Seconds Skin: No rashes, No breakdown Musculoskeletal: No Tenderness to Palpation of Joints or Extremities Lymphatic: No Cervical, Supraclavicular, or Inguinal Adenopathy Neurological: Cranial nerves II-XII grossly intact, Neuro grossly intact, Motor Exam 5/5 strength throughout Psych/Mental Status: Alert and oriented to time, place, person, mood and affect Vital Signs Temp Pulse Resp BP Pulse Ox 37.2 C 84 12 89/45 L 94 02/04/19 06:00 02/04/19 06:00 02/04/19 06:00 02/04/19 06:00 02/04/19 06:00 Oxygen Flow Rate (L/min) 6 Oxygen Delivery Method Mechanical Ventilator Weight: 95.9 kg Body Mass Index (BMI) 31.9 Intake and Output for Last 24 Hours 02/02/19 02/03/19 02/04/19 23:59 23:59 23:59 Intake Total 3367.28 / 3384.78 2810.81 / 3216.31 1100.23 / 1100.23 Output Total 4950 / 4950 2200 / 3100 1800 / 1800 Balance -1582.72 / -1565.22 610.81 / 116.31 -699.77 / -699.77 Labs (Last 48 Hours) 02/01/19 02/01/19 02/02/19 04:00 05:04 03:50 WBC RBC Hgb Hct MCV MCH MCHC RDW Std Deviation RDW Coeff of Omhsen Plt Count MPV Neut % (Auto) Absolute Neuts (auto) Absolute Lymphs (auto) Total Counted Neutrophils % (Manual) Band Neutrophils % Lymphocytes % (Manual) Monocytes % (Manual) Eosinophils % (Manual) Metamyelocytes % Myelocytes % Diff Path Review Reviewed Reviewed Platelet Estimate RBC Morphology Polychromasia Anisocytosis Macrocytosis Specimen Type Cancelled Sample Site Cancelled pH Cancelled Bicarbonate Actual Cancelled POC Total CO2 Cancelled Base Excess Cancelled O2 Saturation Cancelled O2 % Cancelled ABG pCO2 Cancelled ABG pO2 Cancelled Dariusz Test Cancelled Respiration Rate Cancelled O2 Delivery Device Cancelled Liter Flow Cancelled Minute Volume Cancelled Vent Mode Cancelled Tidal Volume Cancelled POC PEEP Cancelled POC Pressure Suppt Cancelled Pressure High Cancelled Pressure Low Cancelled Time High Cancelled Time Low Cancelled EPAP Cancelled IPAP Cancelled Blood Gas Notified Whom Cancelled Blood Gas Notified Time Cancelled Sodium Potassium Chloride Carbon Dioxide Anion Gap BUN Creatinine Estim Creat Clear Calc Est GFR (MDRD) Af Amer Est GFR (MDRD) Non-Af BUN/Creatinine Ratio Glucose Calcium Total Creatine Kinase Triglycerides POC Glucose 02/02/19 02/02/19 02/02/19 03:50 11:37 17:37 WBC RBC Hgb Hct MCV MCH MCHC RDW Std Deviation RDW Coeff of Mohsen Plt Count MPV Neut % (Auto) Absolute Neuts (auto) Absolute Lymphs (auto) Total Counted Neutrophils % (Manual) Band Neutrophils % Lymphocytes % (Manual) Monocytes % (Manual) Eosinophils % (Manual) Metamyelocytes % Myelocytes % Diff Path Review Platelet Estimate RBC Morphology Polychromasia Anisocytosis Macrocytosis Specimen Type Sample Site pH Bicarbonate Actual POC Total CO2 Base Excess O2 Saturation O2 % ABG pCO2 ABG pO2 Dariusz Test Respiration Rate O2 Delivery Device Liter Flow Minute Volume Vent Mode Tidal Volume POC PEEP POC Pressure Suppt Pressure High Pressure Low Time High Time Low EPAP IPAP Blood Gas Notified Whom Blood Gas Notified Time Sodium Potassium Chloride Carbon Dioxide Anion Gap BUN Creatinine Estim Creat Clear Calc Est GFR (MDRD) Af Amer Est GFR (MDRD) Non-Af BUN/Creatinine Ratio Glucose Calcium Total Creatine Kinase 27 L Triglycerides 126 POC Glucose 130 H 157 H 02/02/19 02/03/19 02/03/19 22:38 04:05 04:05 WBC 9.9 RBC 3.13 L Hgb 10.7 L Hct 33.5 L MCV 107.0 H MCH 34.2 H MCHC 31.9 L RDW Std Deviation 54.1 H RDW Coeff of Mohsen 14.8 H Plt Count 125 L MPV 10.1 Neut % (Auto) Not Reportable Absolute Neuts (auto) 6.1 Absolute Lymphs (auto) 2.67 Total Counted 100 Neutrophils % (Manual) 45 L Band Neutrophils % 17 H Lymphocytes % (Manual) 27 Monocytes % (Manual) 2 Eosinophils % (Manual) Metamyelocytes % 7 H Myelocytes % 2 H Diff Path Review May foll Platelet Estimate SLT DEC RBC Morphology Polychromasia RARE Anisocytosis 1+ Macrocytosis 2+ Specimen Type Sample Site pH Bicarbonate Actual POC Total CO2 Base Excess O2 Saturation O2 % ABG pCO2 ABG pO2 Dariusz Test Respiration Rate O2 Delivery Device Liter Flow Minute Volume Vent Mode Tidal Volume POC PEEP POC Pressure Suppt Pressure High Pressure Low Time High Time Low EPAP IPAP Blood Gas Notified Whom Blood Gas Notified Time Sodium 139 Potassium 3.7 Chloride 92 L Carbon Dioxide 43.0 H Anion Gap 4 L BUN 30 H Creatinine 0.47 L Estim Creat Clear Calc 165.05 Est GFR (MDRD) Af Amer 235 Est GFR (MDRD) Non-Af 194 BUN/Creatinine Ratio 64.2 H Glucose 106 Calcium 8.6 Total Creatine Kinase Triglycerides POC Glucose 111 H 02/03/19 02/03/19 02/03/19 05:47 12:40 17:31 WBC RBC Hgb Hct MCV MCH MCHC RDW Std Deviation RDW Coeff of Mohsen Plt Count MPV Neut % (Auto) Absolute Neuts (auto) Absolute Lymphs (auto) Total Counted Neutrophils % (Manual) Band Neutrophils % Lymphocytes % (Manual) Monocytes % (Manual) Eosinophils % (Manual) Metamyelocytes % Myelocytes % Diff Path Review Platelet Estimate RBC Morphology Polychromasia Anisocytosis Macrocytosis Specimen Type Sample Site pH Bicarbonate Actual POC Total CO2 Base Excess O2 Saturation O2 % ABG pCO2 ABG pO2 Dariusz Test Respiration Rate O2 Delivery Device Liter Flow Minute Volume Vent Mode Tidal Volume POC PEEP POC Pressure Suppt Pressure High Pressure Low Time High Time Low EPAP IPAP Blood Gas Notified Whom Blood Gas Notified Time Sodium Potassium Chloride Carbon Dioxide Anion Gap BUN Creatinine Estim Creat Clear Calc Est GFR (MDRD) Af Amer Est GFR (MDRD) Non-Af BUN/Creatinine Ratio Glucose Calcium Total Creatine Kinase Triglycerides POC Glucose 89 167 H 153 H 02/03/19 02/04/19 02/04/19 23:00 05:02 05:15 WBC 9.5 RBC 3.00 L Hgb 10.2 L Hct 32.4 L MCV 108.0 H MCH 34.0 H MCHC 31.5 L RDW Std Deviation 55.2 H RDW Coeff of Mohsen 14.6 Plt Count 120 L MPV 10.6 Neut % (Auto) Not Reportable Absolute Neuts (auto) 5.4 Absolute Lymphs (auto) 2.46 Total Counted 100 Neutrophils % (Manual) 71 H Band Neutrophils % 1 Lymphocytes % (Manual) 26 Monocytes % (Manual) 1 Eosinophils % (Manual) 1 Metamyelocytes % Myelocytes % Diff Path Review May foll Platelet Estimate ADEQUATE RBC Morphology NORM C+C Polychromasia Anisocytosis Macrocytosis Specimen Type Sample Site pH Bicarbonate Actual POC Total CO2 Base Excess O2 Saturation O2 % ABG pCO2 ABG pO2 Dariusz Test Respiration Rate O2 Delivery Device Liter Flow Minute Volume Vent Mode Tidal Volume POC PEEP POC Pressure Suppt Pressure High Pressure Low Time High Time Low EPAP IPAP Blood Gas Notified Whom Blood Gas Notified Time Sodium Potassium Chloride Carbon Dioxide Anion Gap BUN Creatinine Estim Creat Clear Calc Est GFR (MDRD) Af Amer Est GFR (MDRD) Non-Af BUN/Creatinine Ratio Glucose Calcium Total Creatine Kinase Triglycerides POC Glucose 124 H 91 02/04/19 05:15 WBC RBC Hgb Hct MCV MCH MCHC RDW Std Deviation RDW Coeff of Mohsen Plt Count MPV Neut % (Auto) Absolute Neuts (auto) Absolute Lymphs (auto) Total Counted Neutrophils % (Manual) Band Neutrophils % Lymphocytes % (Manual) Monocytes % (Manual) Eosinophils % (Manual) Metamyelocytes % Myelocytes % Diff Path Review Platelet Estimate RBC Morphology Polychromasia Anisocytosis Macrocytosis Specimen Type Sample Site pH Bicarbonate Actual POC Total CO2 Base Excess O2 Saturation O2 % ABG pCO2 ABG pO2 Dariusz Test Respiration Rate O2 Delivery Device Liter Flow Minute Volume Vent Mode Tidal Volume POC PEEP POC Pressure Suppt Pressure High Pressure Low Time High Time Low EPAP IPAP Blood Gas Notified Whom Blood Gas Notified Time Sodium 138 Potassium 3.7 Chloride 94 L Carbon Dioxide 41.0 H Anion Gap 3 L BUN 29 H Creatinine 0.40 L Estim Creat Clear Calc 193.93 Est GFR (MDRD) Af Amer 278 Est GFR (MDRD) Non-Af 230 BUN/Creatinine Ratio 72.0 H Glucose 95 Calcium 8.5 Total Creatine Kinase Triglycerides POC Glucose Clinical Impression(s) from Imaging Studies Chest X-Ray 02/04/19 03:37 IMPRESSION: Right lower lobe consolidation suggestive of infiltrate and/or atelectasis. Lines and tubes as described above. Electronically Signed: Elizabet Aguilar MD at 3:57 EST , Service support , Medical Necessity - Tobacco Use Smoking Status: Current every day smoker Tobacco Use: Cigarettes Assessment/Plan All Active Problems CVA (cerebral vascular accident) (Acute) Slurred speech (Acute) COPD exacerbation (Acute) RECOMMENDATIONS: 1. Continue assist control. Wean PEEP as tolerated 2. Continue Unasyn to complete a 10-day course 3. Continue current diuretic therapy and potassium repletion 4. Continue to wean FiO2 and PPI to maintain an oxygen saturation at or above 90%. 5. Continue bronchodilators. Likely wean prednisone tomorrow 6. Continue tube feeds as ordered. 7. Continue appropriate ICU prophylaxis. IMPRESSIONS: 1. Acute on chronic hypoxemic respiratory failure secondary to presumed aspiration pneumonia The patient was emergently transferred to the ICU on the morning of January 26, where he did require intubation due to impending respiratory failure following an aspiration event. Patient now with multiple etiologies of hypoxic respiratory failure including COPD, H. influenzae and small pulmonary emboli. Patient is on anticoagulation. Patient continues to improve with d iuresis, but is still requiring significant PEEP to maintain saturations. Patient with a mucous plug this morning. Will continue with aggressive pulmonary toileting. Given PEEP and FiO2 requirements, patient should likely be considered for a tracheostomy and PEG early next week. Will need to talk with the POA to see if this is agreeable. If not, extubation with no reintubation can be explored. 2. Septic shock secondary to presumed aspiration pneumonia Patient has been able to come off of pressor therapy at this point. Patient will continue with antibiotic therapy to complete a 10-day course. Blood pressures are marginal this morning, but this may be secondary to the acute event described. We will continue to monitor. May need to hold off on diuresis 3. COPD with exacerbation Inciting etiology appears to be aspiration event and possible pulmonary emboli. Continue current supportive measures as noted above along with bronchodilators and steroids. Wean oxygen as tolerated. Prednisone can likely be weaned over the next 12 to 14 days. 4. Slurred speech Intubated and sedated. Will need to reevaluate once patient is liberated from the ventilator. 5. History of venous thrombi embolic disease/hypertension/hyperlipidemia/seizure disorder/continuous tobacco dependen cy Complicates care, management, recovery and prognosis. Hold home antihypertensives and diuretics for now. Continue antiepileptics. 6. Hyperkalemia Patient receiving aggressive diuresis at this time. Potassium appears to remain stable with current supplementation regimen TIME: 37 minutes of critical care time, independent of procedures, was spent addressing the patient's acute on chronic hypoxemic respiratory failure, septic shock secondary to presumed aspiration pneumonia, COPD with exacerbation, review of all data and collaboration with the care team. (6 AM to 7:15 AM) Code Visit [id number]: [id number] Critical care first hour
--- NOTE | 2019-02-04 08:49 | PN_ITS ---
Patient Problems: Active and Suspected Problems CVA (cerebral vascular accident) (Acute) Slurred speech (Acute) Subjective: Patient seen and examined. He remains intubated and sedated. BP was running low this morning, and was thought to be due to lasix he received this morning. Propofol had also been increased, which also likely contributed to hypotension. per discussion with nurse, no other active events overnight. Vitals/I&O's: Vital Signs Temp Pulse Resp BP Pulse Ox 98.9 F 80 13 89/45 L 92 02/04/19 06:00 02/04/19 07:05 02/04/19 07:05 02/04/19 06:00 02/04/19 07:02 Oxygen Flow Rate (L/min) 6 Oxygen Delivery Method Mechanical Ventilator Weight: 211 lb 6.773 oz Body Mass Index (BMI) 31.9 Intake and Output for Last 24 Hours 02/02/19 02/03/19 02/04/19 23:59 23:59 23:59 Intake Total 3367.28 / 3384.78 2810.81 / 3216.31 1144.25 / 1144.25 Output Total 4950 / 4950 2200 / 3100 1800 / 1800 Balance -1582.72 / -1565.22 610.81 / 116.31 -655.75 / -655.75 General: Alert, - - Intubated and sedated. RASS score is 0 today. HEENT: Atraumatic, PERRLA, EOMI, Normocephalic Oral: Dry Mucosa Neck: Supple, No JVD, Negative Carotid Bruits Lungs: - - decreased breath sounds in lung bases; remains intubated and sedated Cardiovascular: Regular rate, Regular Rhythm, Normal S1, Normal S2, No murmurs Abdomen: Bowel Sounds Present, Soft, Non Tender Extremities: No clubbing, No cyanosis, No edema, Capillary Refill Less than 3 Seconds Skin: No rashes, No breakdown Musculoskeletal: No Tenderness to Palpation of Joints or Extremities Lymphatic: No Cervical, Supraclavicular, or Inguinal Adenopathy Neurological: - - intubated, sedated Laboratory Results 02/01/19 05:04: Specimen Type Cancelled, Sample Site Cancelled, pH Cancelled, Bicarbonate Actual Cancelled, POC Total CO2 Cancelled, Base Excess Cancelled, O2 Saturation Cancelled, O2 % Cancelled, ABG pCO2 Cancelled, ABG pO2 Cancelled, Dariusz Test Cancelled, Respiration Rate Cancelled, O2 Delivery Device Cancelled, Liter Flow Cancelled, Minute Volume Cancelled, Vent Mode Cancelled, Tidal Volume Cancelled, POC PEEP Cancelled, POC Pressure Suppt Cancelled, Pressure High Can celled, Pressure Low Cancelled, Time High Cancelled, Time Low Cancelled, EPAP Cancelled, IPAP Cancelled, Blood Gas Notified Whom Cancelled, Blood Gas Notified Time Cancelled 02/03/19 12:40: POC Glucose 167 H 02/03/19 17:31: POC Glucose 153 H 02/03/19 23:00: POC Glucose 124 H 02/04/19 05:02: POC Glucose 91 02/04/19 05:15: WBC 9.5, RBC 3.00 L, Hgb 10.2 L, Hct 32.4 L, MCV 108.0 H, MCH 34.0 H, MCHC 31.5 L, RDW Std Deviation 55.2 H, RDW Coeff of Mohsen 14.6, Plt Count 120 L, MPV 10.6, Neut % (Auto) Not Reportable, Absolute Neuts (auto) 5.4, Absolute Lymphs (auto) 2.46, Total Counted 100, Neutrophils % (Manual) 71 H, Band Neutrophils % 1, Lymphocytes % (Manual) 26, Monocytes % (Manual) 1, Eosinophils % (Manual) 1, Diff Path Review July, Platelet Estimate ADEQUATE, RBC Morphology NORM C+C 02/04/19 05:15: Sodium 138, Potassium 3.7, Chloride 94 L, Carbon Dioxide 41.0 H, Anion Gap 3 L, BUN 29 H, Creatinine 0.40 L, Estim Creat Clear Calc 193.93, Est GFR (MDRD) Af Amer 278, Est GFR (MDRD) Non-Af 230, BUN/Creatinine Ratio 72.0 H, Glucose 95, Calcium 8.[address] 01/23/19 18:35 IMPRESSION: Chronic involutional changes of the brain. Electronically Signed: Frod Craig MD at 19:28 EST , Service support , Head MRA 01/24/19 12:20 IMPRESSION: Normal MRA of the head. No demonstrated aneurysm, dissection, stenosis, or occlusion. Electronically Signed: Renetta Diaz MD at 16:09 EST Tel , Service support , Neck MRA 01/24/19 12:20 IMPRESSION: Normal bilateral cervical carotid and vertebral arteries. Electronically Signed: Renetta Diaz MD at 16:15 EST Tel , Service support , Brain MRI 01/24/19 12:30 IMPRESSION: No acute infarct or intracranial hemorrhage. Mild involutional changes of the brain, as described above. Electronically Signed: Andrew Coleman at 15:29 EST Tel , Service support , Chest CTA 01/28/19 00:00 IMPRESSION: 1. Small right middle lobe segmental pulmonary emboli. 2. Bilateral lower lobe airspace consolidations and possible atelectasis suggesting pneumonia. 3. 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 4. No CTA demonstrated arterial dissection. N.B. : The above information has been verbally conveyed by Maddie Jeffers MD to RANDY Galvez, on 01/28/2019 09:50:52 (ET). Electronically Signed: Maddie Jeffers MD at 9:55 EST , Service support , ADDENDUM: 01/28/19 1002 IMPRESSION: 1. Small right middle lobe segmental pulmonary emboli. 2. Bilateral lower lobe airspace consolidations and possible atelectasis suggesting pneumonia. 3. 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 4. No CTA demonstrated arterial dissection. N.B. : The above information has been verbally conveyed by Maddie Jeffers MD to RANDY Galvez, on 01/28/2019 09:50:52 (ET). Electronically Signed: Maddie Jeffers MD at 9:55 EST , Service support , KUB X-Ray 02/01/19 09:29 IMPRESSION: Limited study of the abdomen and pelvis which is grossly negative. Electronically Signed: Wesley Mayer, at 10:40 EST Tel , Service support , Chest X-Ray 02/04/19 03:37 IMPRESSION: Right lower lobe consolidation suggestive of infiltrate and/or atelectasis. Lines and tubes as described above. Electronically Signed: Elizabet Aguilar MD at 3:57 EST , Service support , Current Medications Acetaminophen (Tylenol) 650 mg PO Q6H PRN PRN PRN Reason: Non-cardiac pain (-12/14) Last Admin: 01/25/19 15:13 Dose: 650 mg Documented by: Acetaminophen (Tylenol Liquid) 650 mg GT Q6H PRN PRN PRN Reason: TEMP>101 Al Hydroxide/Mg Hydroxide (Mylanta Ii) 15 - 30 ml PO Q4H PRN PRN PRN Reason: INDIGESTION Albuterol Sulfate (Ventolin Aerosols) 2.5 mg INHALATION Q2H PRN PRN PRN Reason: dyspnea, wheezing Last Admin: 01/26/19 09:26 Dose: 2.5 mg Documented by: Albuterol/Ipratropium (Duoneb) 3 ml INHALATION Q4HWA.RT [facility] Last Admin: 02/04/19 07:05 Dose: 3 ml Documented by: Atorvastatin Calcium (Lipitor) 80 mg GT QHS [facility] Last Admin: 02/03/19 23:05 Dose: 80 mg Documented by: Chlorhexidine Gluconate () 15 ml PO BID [facility] Last Admin: 02/03/19 23:03 Dose: 15 ml Documented by: Chlorhexidine Gluconate () 1 each TOPICAL DAILY [facility] Last Admin: 02/03/19 09:59 Dose: 1 each Documented by: Dextrose (D50w Syringe) 0 gm IV X1 PRN; Protocol PRN Reason: Hypoglycemia Divalproex Sodium (Depakote Er) 500 mg PO 0700,1300 [facility] Last Admin: 01/26/19 13:30 Dose: Not Given Documented by: Divalproex Sodium (Depakote Er) 1,000 mg PO QHS [facility] Last Admin: 01/25/19 21:41 Dose: 1,000 mg Documented by: Enoxaparin Sodium (Lovenox) 100 mg SC Q12@0600,1800 [facility] Last Admin: 02/04/19 05:04 Dose: 100 mg Documented by: Famotidine (Pepcid) 20 mg GT BID [facility] Last Admin: 02/03/19 23:06 Dose: 20 mg Documented by: Furosemide (Lasix) 40 mg IV Q8 [facility] Last Admin: 02/04/19 05:04 Dose: 40 mg Documented by: Gabapentin (Neurontin) 300 mg GT TID [facility] Last Admin: 02/04/19 05:04 Dose: 300 mg Documented by: Glucagon () 1 mg IM .X1 PRN PRN Reason: Hypoglycemia Guaifenesin (Robitussin) 10 ml GT Q6H PRN Guaifenesin (Robitussin) 10 ml GT Q6H [facility] Last Admin: 02/04/19 05:05 Dose: 10 ml Documented by: Sodium Chloride () 250 mls @ 15 mls/hr IV .[id number] PRN PRN Reason: Saline Flush Last Infusion: 02/03/19 17:32 Dose: Infused Documented by: Enteral Nutritional Formula (Vital Af 1.2 Truong Liquid) 1,000 mls @ 60 mls/hr GT .[id number] [facility] Last Admin: 02/03/19 21:50 Dose: 60 mls/hr Documented by: Fentanyl () 100 mls @ 15 mls/hr IV UD [facility]; Protocol Last Titration: 02/04/19 08:00 Dose: 125 mcg/hr, 12.5 mls/hr Documented by: Propofol (Diprivan) 1,000 mg in 100 mls @ 17.262 mls/hr CONT INF .[id number] [facility]; Protocol Last Titration: 02/04/19 08:00 Dose: 17.5 mcg/kg/min, 10.1 mls/hr Documented by: Ampicillin Sodium/Sulbactam (Sodium 3 gm/ Sodium Chloride) 112 mls @ 150 mls/hr IV Q6 [facility] Stop: 02/04/19 18:01 Last Infusion: 02/04/19 05:51 Dose: Infused Documented by: Insulin Human Lispro (Humalog Kwikpen (Bkc)) 0 unit SC Q6 [facility]; Protocol Last Admin: 02/04/19 05:04 Dose: Not Given Documented by: Magnesium Hydroxide (Milk Of Magnesia) 30 ml GT DAILY PRN PRN Reason: Constipation Last Admin: 01/30/19 09:33 Dose: 30 ml Documented by: Nicotine (Nicoderm Cq (Pbkc)) 21 mg TRANSDERM. DAILY [facility] Last Admin: 02/03/19 09:58 Dose: 21 mg Documented by: Nitroglycerin (Nitrostat) 0.4 mg SUBLINGUAL Q5M PRN PRN Reason: CARDIAC/CHEST PAIN Ondansetron HCl (Zofran) 4 mg IV Q8H PRN PRN PRN Reason: NAUSEA/VOMITING Polyethylene Glycol (Miralax) 17 gm GT BID [facility] Last Admin: 02/03/19 23:06 Dose: Not Given Documented by: Potassium Chloride (Potassium Chl Soln) [facility] Last Admin: 02/03/19 17:23 Dose: 40 meq Documented by: Prednisone () 30 mg GT DAILY@0800 [facility] Senna/Docusate Sodium (Senokot-S, Lila-Colace) 2 tablet GT BID [facility] Last Admin: 02/03/19 23:05 Dose: 2 tablet Documented by: Sodium Chloride () 10 - 40 ml IV UD PRN PRN Reason: SALINE FLUSH Last Admin: 02/03/19 05:56 Dose: 40 ml Documented by: Throat Lozenges (Cepacol Sore Throat Lozenge) 1 lozenge MUCOUS MEM Q2H PRN PRN PRN Reason: COUGH Valproic Acid (Depakene) 500 mg GT 4X/DAY [facility] Last Admin: 02/03/19 23:03 Dose: 500 mg Documented by: STROKE Vital Signs/Narrative: Vital Signs Temp Pulse Resp BP Pulse Ox 02/04/19 07:05 80 13 02/04/19 07:02 72 12 92 02/04/19 06:00 98.9 F 84 12 89/45 L 94 02/04/19 05:00 98.9 F 72 12 90/57 L 93 Medical Necessity - Tobacco Use Smoking Status: Current every day smoker Tobacco Use: Cigarettes Assessment/Plan All Active Problems CVA (cerebral vascular accident) (Acute) Slurred speech (Acute) COPD exacerbation (Acute) 1. Acute hypoxic respiratory failure due to aspiration pneumonia * remains intubated and sedated * had a low grade fever overnight, with temperature peaking at 99.2F * blood cultures: no growth after 48 hours; repeat blood cultures show no growth after 5 days. urine cultures also negative * sputum culture sputum culture grew Hemophilus influenza and Streptococcus pneumoniae. * 2D echo: Ef of 65%, with stage 1 diastolic dysfunction and moderately dilated RV; bubble contrast study negative. * now on IV unasyn; to complete 10 day course of antibiotics. * critical care on board * on IV lasix 40mg q8; in net positive balance by 8.252L * 2. Septic shock due to aspiration pneumonia * now off levophed. * critical care on board * on IV unasyn * 3. Aspiration pneumonia: as under 1 and 2 4. Pulmonary embolism: * CT chest showed small segmental right sided PE. does have a hsitory of PE and DVT * coumadin was switched to eliquis on admission o/a of cross reaction between coumadin and depakote. * on lovenox * 4. Slurred speech and double vision * stroke ruled out per CT and MRI * was evaluated by neurology * PT/OT and speech therapy on board * acetylcholine receptor antibodies pending * 5. Hypertension:BP meds on hold o/a of septic shock 6. Seizure disorder: on depakote DVT prophylaxis: on lovenox Code Visit Inpatient E&M: [id number] [facility] [place] [facility] L3
[2019-02-04] MEDS: predniSONE 20 MG Tablet 30 MG GT (09:43)
[2019-02-04] MEDS: Chlorhexidine 15 ML PO ×2 (09:43→21:42)
[2019-02-04] MEDS: Famotidine 20 MG Tablet GT ×2 (09:44→21:43)
[2019-02-04] MEDS: Propofol 10MG/Ml 1,000 MG/100 ML Bottle 10.1 MG CONT INF ×2 (11:04→19:15)
[2019-02-04] MEDS: CHLORHEXIDINE GLUC 2% CLOTH 1 EACH TOWELETTE TOPICAL (12:10)
[2019-02-04 12:26] LABS: Bedside Glucose 133 mg/dL (70-110)
[2019-02-04] MEDS: Vital AF 1.2 Cal Liquid 1,000 ML 60 ML GT (17:00)
[2019-02-04 17:06] LABS: Bedside Glucose 142 mg/dL (70-110)
[2019-02-04] MEDS: Senna/Docusate Sodium 1 Tablet 2 TABLET GT (21:42)
[2019-02-04] MEDS: Atorvastatin Calcium 80 MG Tablet GT (21:43)
[2019-02-04 23:51] LABS: Bedside Glucose 120 mg/dL (70-110)
[2019-02-05] VITALS (37 sets, daily range): BP systolic 85–114; BP diastolic 52–76; PULSE 60–90; RESP 12–20; TEMP 36.3–37.4; O2SAT 81–97; BMI 31.9
[2019-02-05] MEDS: Propofol 10MG/Ml 1,000 MG/100 ML Bottle 12.9 MG CONT INF (03:18)
[2019-02-05 04:16] LABS: Absolute Lymphocyte Count 1.99 X10^3/uL (0.83-4.51); Absolute Neutrophil Count 6.1 X10^3/uL (2.0-7.7); Basophil# 0.01 X10^3/uL; Basophil% 0.1 % (0-1); Eosinophil# 0.04 X10^3/uL; Eosinophils% 0.5 % (0-5); Hematocrit 31.8 % (40-54); Lymphocyte # 1.99 X10^3/ul (4.0); Lymphocyte % 22.5 % (19-41); Mean Corp Hgb Conc 31.4 g/dL (32-36); Mean Corpuscular Hgb 34.2 pg (27.0-32.0); Mean Corpuscular Volume 108.9 fL (80-94); Mean Platelet Vol. 10.6 fl (6.2-12.0); Monocyte# 0.35 X10^3/uL; NRBC Flagged by Analyzer 0 % (0-5); Neutrophil # 6.09 X10^3/uL (2.7-7.7); Neutrophil % 68.9 % (47-70); Platelet Count 115 K/mm3 (150-450); RBC Distribution Width CV 14.9 % (11.6-14.6); RBC Distribution Width SD 56.3 fl (35.1-43.9); Red Blood Count 2.92 M/mm3 (4.6-6.2); White Blood Count 8.8 K/mm3 (4.4-11.0)
[2019-02-05 04:26] LABS: Anion Gap 2 (5-15); BUN 25 mg/dL (7-18); BUN/Creat Ratio 74.9 RATIO (10-20); Calcium,Total 8.5 mg/dL (8.5-10.1); Chloride 98 mmol/L (98-107); Creatinine, Serum 0.33 mg/dL (0.70-1.30); EST Glomerular Filtration Rate 286 mL/min (>60); Est Glom Filt Rate - Afr Amer 346 mL/min (>60); Estimated Creatinine Clearance 235.07 ml/min; Glucose 107 mg/dL (74-106); Potassium 3.6 mmol/L (3.5-5.1); Sodium Level 140 mmol/L (136-145)
[2019-02-05] MEDS: guaiFENesin 10 ML UDC (200MG/10ML) GT ×4 (05:26→22:49)
[2019-02-05] MEDS: Enoxaparin 100 MG/ML Syringe SC (05:26)
[2019-02-05] MEDS: Gabapentin 300 MG Capsule GT ×3 (05:26→22:50)
[2019-02-05 05:46] LABS: Bedside Glucose 95 mg/dL (70-110)
[2019-02-05] MEDS: Ipratropium/Albuterol Sulfate 3 ML AMPUL.NEB INHALATION ×4 (06:41→18:46)
[2019-02-05] MEDS: fentaNYL drip 100 ML 12.5 MCG IV ×3 (06:41→22:51)
--- NOTE | 2019-02-05 07:06 | PN_ITS ---
Patient Problems: Active and Suspected Problems CVA (cerebral vascular accident) (Acute) Slurred speech (Acute) Subjective: Patient with no acute events overnight with stable BPs following Lasix discontinuation, ongoing distal edema, SAT passed however SBT failed, continued on TFs, increased sedation secondary to agitation per RN report. Discussed patient with ICU physician, given ongoing failure for SBT plan for family discussions for consideration of trach and PEG. Patient sedated, intubated, no obvious evidence of fevers, chills, nausea, emesis, abdominal pain, chest pain. Objective: Physical Examination: General: Intubated, intubated, sedated, no obvious distress, laying in the ICU bed. Skin: normal color, turgor, no icterus, cyanosis. HEENT: AT/NC, EOM unable to be assessed given current status, PERRLA, mildly dry MM, intubated, sedated no carotid bruits or JVD noted. Lungs: Manage breath sounds throughout, greater bases, intubated, symmetric rise, no current obvious rales, ronchi or wheezing. Heart: Regular rate and rhythm; no gallop, rub audible. Abdomen: soft, obese, NTTP, ND, normal BS. Extremities: no cyanosis, clubbing, mild BL LE ankle to distal martell 1+ edema, BL hand to mid-forearm 2+ edema. Neurological: Intubated, intubated, sedated, no obvious distress, laying in the ICU bed; cognitive function not baseline intact; pupils equally reactive to light and accomodation; cranial nerves unable to be assessed given sedated status, strength accordingly severely globally decreased. Psychiatric: affect appears flat, sedated, previously agitated per RN report, no acute evidence of depressive or anxiety feelings. Vitals/I&O's: Vital Signs Temp Pulse Resp BP Pulse Ox 99.0 F 81 14 104/67 88 02/05/19 06:00 02/05/19 06:00 02/05/19 06:00 02/05/19 06:00 02/05/19 06:00 Oxygen Flow Rate (L/min) 6 Oxygen Delivery Method Mechanical Ventilator Weight: 213 lb 13.574 oz Body Mass Index (BMI) 31.9 Intake and Output for Last 24 Hours 02/03/19 02/04/19 02/05/19 23:59 23:59 23:59 Intake Total 2810.81 / 3216.31 2513.89 / 2919.49 859.84 / 859.84 Output Total 2200 / 3100 2850 / 3100 550 / 550 Balance 610.81 / 116.31 -336.11 / -180.51 309.84 / 309.84 Laboratory Results 02/04/19 12:09: POC Glucose 133 H 02/04/19 16:57: POC Glucose 142 H 02/04/19 23:39: POC Glucose 120 H 02/05/19 04:00: WBC 8.8, RBC 2.92 L, Hgb 10.0 L, Hct 31.8 L, MCV 108.9 H, MCH 34.2 H, MCHC 31.4 L, RDW Std Deviation 56.3 H, RDW Coeff of Mohsen 14.9 H, Plt Count 115 L, MPV 10.6, Immature Gran % (Auto) 4.000 H, Neut % (Auto) 68.9, Lymph % (Auto) 22.5, [place] % (Auto) 4.0, Eos % (Auto) 0.5, Baso % (Auto) 0.1, Absolute Neuts (auto) 6.1, Absolute Lymphs (auto) 1.99, Nucleated RBC % 0 02/05/19 04:00: Sodium 140, Potassium 3.6, Chloride 98, Carbon Dioxide 40.0 H, Anion Gap 2 L, BUN 25 H, Creatinine 0.33 L, Estim Creat Clear Calc 235.07, Est GFR (MDRD) Af Amer 346, Est GFR (MDRD) Non-Af 286, BUN/Creatinine Ratio 74.9 H, Glucose 107 H, Calcium 8.5 02/05/19 05:25: POC Glucose 95 Current Medications Acetaminophen (Tylenol) 650 mg PO Q6H PRN PRN PRN Reason: Non-cardiac pain (-12/14) Last Admin: 01/25/19 15:13 Dose: 650 mg Documented by: Acetaminophen (Tylenol Liquid) 650 mg GT Q6H PRN PRN PRN Reason: TEMP>101 Al Hydroxide/Mg Hydroxide (Mylanta Ii) 15 - 30 ml PO Q4H PRN PRN PRN Reason: INDIGESTION Albuterol Sulfate (Ventolin Aerosols) 2.5 mg INHALATION Q2H PRN PRN PRN Reason: dyspnea, wheezing Last Admin: 01/26/19 09:26 Dose: 2.5 mg Documented by: Albuterol/Ipratropium (Duoneb) 3 ml INHALATION Q4HWA.RT [facility] Last Admin: 02/05/19 06:41 Dose: 3 ml Documented by: Atorvastatin Calcium (Lipitor) 80 mg GT QHS [facility] Last Admin: 02/04/19 21:43 Dose: 80 mg Documented by: Chlorhexidine Gluconate () 15 ml PO BID [facility] Last Admin: 02/04/19 21:42 Dose: 15 ml Documented by: Chlorhexidine Gluconate () 1 each TOPICAL DAILY [facility] Last Admin: 02/04/19 12:10 Dose: 1 each Documented by: Dextrose (D50w Syringe) 0 gm IV X1 PRN; Protocol PRN Reason: Hypoglycemia Divalproex Sodium (Depakote Er) 500 mg PO 0700,1300 [facility] Last Admin: 01/26/19 13:30 Dose: Not Given Documented by: Divalproex Sodium (Depakote Er) 1,000 mg PO QHS [facility] Last Admin: 01/25/19 21:41 Dose: 1,000 mg Documented by: Enoxaparin Sodium (Lovenox) 100 mg SC Q12@0600,1800 [facility] Last Admin: 02/05/19 05:26 Dose: 100 mg Documented by: Famotidine (Pepcid) 20 mg GT BID [facility] Last Admin: 02/04/19 21:43 Dose: 20 mg Documented by: Gabapentin (Neurontin) 300 mg GT TID [facility] Last Admin: 02/05/19 05:26 Dose: 300 mg Documented by: Glucagon () 1 mg IM .X1 PRN PRN Reason: Hypoglycemia Guaifenesin (Robitussin) 10 ml GT Q6H PRN Guaifenesin (Robitussin) 10 ml GT Q6H [facility] Last Admin: 02/05/19 05:26 Dose: 10 ml Documented by: Sodium Chloride () 250 mls @ 15 mls/hr IV .[id number] PRN PRN Reason: Saline Flush Last Infusion: 02/03/19 17:32 Dose: Infused Documented by: Enteral Nutritional Formula (Vital Af 1.2 Truong Liquid) 1,000 mls @ 60 mls/hr GT .[id number] [facility] Last Admin: 02/04/19 17:00 Dose: 60 mls/hr Documented by: Fentanyl () 100 mls @ 15 mls/hr IV UD [facility]; Protocol Last Admin: 02/05/19 06:41 Dose: 125 mcg/hr, 12.5 mls/hr Documented by: Propofol (Diprivan) 1,000 mg in 100 mls @ 17.46 mls/hr CONT INF .Q5H44M [facility]; Protocol Last Titration: 02/05/19 06:15 Dose: 30 mcg/kg/min, 17.5 mls/hr Documented by: Insulin Human Lispro (Humalog Kwikpen (Bkc)) 0 unit SC Q6 [facility]; Protocol Last Admin: 02/05/19 05:26 Dose: Not Given Documented by: Magnesium Hydroxide (Milk Of Magnesia) 30 ml GT DAILY PRN PRN Reason: Constipation Last Admin: 01/30/19 09:33 Dose: 30 ml Documented by: Nicotine (Nicoderm Cq (Pbkc)) 21 mg TRANSDERM. DAILY [facility] Last Admin: 02/04/19 09:44 Dose: 21 mg Documented by: Nitroglycerin (Nitrostat) 0.4 mg SUBLINGUAL Q5M PRN PRN Reason: CARDIAC/CHEST PAIN Ondansetron HCl (Zofran) 4 mg IV Q8H PRN PRN PRN Reason: NAUSEA/VOMITING Polyethylene Glycol (Miralax) 17 gm GT BID [facility] Last Admin: 02/04/19 21:43 Dose: Not Given Documented by: Potassium Chlor[facility] (Potassium Chl Soln) [facility] Admin: 02/04/19 16:59 Dose: 40 meq Documented by: Prednisone () 30 mg GT DAILY@0800 [facility] Last Admin: 02/04/19 09:43 Dose: 30 mg Documented by: Senna/Docusate Sodium (Senokot-S, Lila-Colace) 2 tablet GT BID [facility] Last Admin: 02/04/19 21:42 Dose: 2 tablet Documented by: Sodium Chloride () 10 - 40 ml IV UD PRN PRN Reason: SALINE FLUSH Last Admin: 02/03/19 05:56 Dose: 40 ml Documented by: Throat Lozenges (Cepacol Sore Throat Lozenge) 1 lozenge MUCOUS MEM Q2H PRN PRN PRN Reason: COUGH Valproic Acid (Depakene) 500 mg GT 4X/DAY [facility] Last Admin: 02/04/19 21:42 Dose: 500 mg Documented by: STROKE Vital Signs/Narrative: Vital Signs Temp Pulse Resp BP Pulse Ox 02/05/19 06:00 99.0 F 81 14 104/67 88 02/05/19 05:40 90 20 H 81 02/05/19 05:00 98.7 F 87 14 112/70 93 02/05/19 04:30 74 12 94 02/05/19 04:15 76 17 95 02/05/19 04:00 98.7 F 62 14 91/52 L 95 Medical Necessity - Tobacco Use Smoking Status: Current every day smoker Tobacco Use: Cigarettes Assessment/Plan All Active Problems CVA (cerebral vascular accident) (Acute) Slurred speech (Acute) COPD exacerbation (Acute) The patient is a 63 y/o M w/ PMHx: Chronic COPD w/ Chronic Hypoxic Respiratory Failure (4-5L NC) following w/ [facility] Pulmonary, Obesity, HTN, HLD, Depression and Anxiety, Hx DVT/PE on coumadin, Seizure disorder, Tobacco use ongoing who presents to the [facility] ED on 01/23/19 with history of 2 to 3 days of progressively worsening fatigue, weakness generally, dyspnea worse with exertion with mildly productive cough of yellow-shields sputum with ongoing wheezing x 2 days. 1. Acute Septic Shock secondary to Acute on Chronic Hypoxic Respiratory Failure secondary to Acute on chronic COPD exacerbation and Aspiration Pneumonia: Initial ED evaluation with chest x-ray with chronic changes with CBC with no market WBC elevation and maintained on oxygen supplementation however clinically worsened and required transition to the ICU with intubation, sedation with negative blood cultures, sputum cultures with Haemophilus influenza and Streptococcus pneumonia, maintained on IV Unasyn x 10-day course of antibiotic therapy, treated on ATC duoneb, PRN albuterol, IV Solu-Medrol transitioned to prednisone taper, aggressive IV fluid administration given concurrent septic shock treated initially with Levophed now transitioned off, still failing spontaneous breathing trials with plan discussion with family with ICU for trach and PEG consideration. 2. Acute Pulmonary Embolism: CT chest with small segmental right-sided PE with history of prior PE and DVT, could initially transition to Eliquis secondary to crush reaction with Coumadin and Depakote, transition to therapeutic Lovenox. 3. Hypertension: Regimen held upon admission given #1, BP low normal, off pressor therapy, PRN agents as needed. 4. Hyperlipidemia: Continue on high-dose statin therapy. 5. History of DVT/PE: Upon admission position from Coumadin to Eliquis secondary to cross-reactivity of medications, given acute presentation with #1, #2 transition to therapeutic Lovenox. 6. Obesity: Weight loss and lifestyle changes encouraged, nutrition consulted. 7. Seizure disorder: Continued on Depakote regimen. 8. Tobacco Abuse: Encouraged upon admission cessation, inpatient consultation per RT if clinically becomes appropriate given #1, NR if desired. 9. GERD: Famotidine. 10. DVT prophylaxis: SCDs, therapeutic Lovenox. 11. CODE status: Full Code. Code Visit Inpatient E&M: 06230 Subs Hosp L3
--- NOTE | 2019-02-05 07:21 | PCM.PN.INT ---
Subjective: Patient did well overnight. Patient's oxygenation did improve throughout the day yesterday. Patient was actually placed on a spontaneous breathing trial this morning. However, after approximately 1 hour, patient became significantly hypoxic and tachycardic. Patient required aggressive suctioning with removal of a mucous plug and was up to 12 of PEEP and 70%. Sedation had to be increased. Patient has had his Lasix discontinued secondary to marginal blood pressures overnight. General: - - RASS -1. Obese. Mild anasarca. Good vent synchrony. HEENT: Atraumatic, PERRLA, EOMI, Normocephalic, - - Slight scleral injection. Oral: Moist Mucosa, No Gingival or Mucosal Lesions/ Ulcerations Neck: Supple, No JVD, No Nodes, Trachea Midline Lungs: No rhonchi, No wheeze, No rales, Diminished, - - Symmetric expansion. Cardiovascular: Regular rate, Regular Rhythm, Normal S1, Normal S2, No murmurs, No rub noted, No Gallop Abdomen: Bowel Sounds Present, Soft, Non Tender, Non-Distended Extremities: No cyanosis, Clubbing, Edema Skin: No rashes, No breakdown Musculoskeletal: No Tenderness to Palpation of Joints or Extremities Lymphatic: No Cervical, Supraclavicular, or Inguinal Adenopathy Neurological: Cranial nerves II-XII grossly intact, Neuro grossly intact, Motor Exam 5/5 strength throughout Psych/Mental Status: Anxious Vital Signs Temp Pulse Resp BP Pulse Ox 37.2 C 81 14 104/67 88 02/05/19 06:00 02/05/19 06:00 02/05/19 06:00 02/05/19 06:00 02/05/19 06:00 Oxygen Flow Rate (L/min) 6 Oxygen Delivery Method Mechanical Ventilator Weight: 97 kg Body Mass Index (BMI) 31.9 Intake and Output for Last 24 Hours 02/03/19 02/04/19 02/05/19 23:59 23:59 23:59 Intake Total 2810.81 / 3216.31 2513.89 / 2919.49 859.84 / 859.84 Output Total 2200 / 3100 2850 / 3100 550 / 550 Balance 610.81 / 116.31 -336.11 / -180.51 309.84 / 309.84 Labs (Last 48 Hours) 02/01/19 02/03/19 02/03/19 05:04 12:40 17:31 WBC RBC Hgb Hct MCV MCH MCHC RDW Std Deviation RDW Coeff of Mohsen Plt Count MPV Immature Gran % (Auto) Neut % (Auto) Lymph % (Auto) [place] % (Auto) Eos % (Auto) Baso % (Auto) Absolute Neuts (auto) Absolute Lymphs (auto) Total Counted Neutrophils % (Manual) Band Neutrophils % Lymphocytes % (Manual) Monocytes % (Manual) Eosinophils % (Manual) Nucleated RBC % Diff Path Review Platelet Estimate RBC Morphology Specimen Type Cancelled Sample Site Cancelled pH Cancelled Bicarbonate Actual Cancelled POC Total CO2 Cancelled Base Excess Cancelled O2 Saturation Cancelled O2 % Cancelled ABG pCO2 Cancelled ABG pO2 Cancelled Dariusz Test Cancelled Respiration Rate Cancelled O2 Delivery Device Cancelled Liter Flow Cancelled Minute Volume Cancelled Vent Mode Cancelled Tidal Volume Cancelled POC PEEP Cancelled POC Pressure Suppt Cancelled Pressure High Cancelled Pressure Low Cancelled Time High Cancelled Time Low Cancelled EPAP Cancelled IPAP Cancelled Blood Gas Notified Whom Cancelled Blood Gas Notified Time Cancelled Sodium Potassium Chloride Carbon Dioxide Anion Gap BUN Creatinine Estim Creat Clear Calc Est GFR (MDRD) Af Amer Est GFR (MDRD) Non-Af BUN/Creatinine Ratio Glucose Calcium POC Glucose 167 H 153 H 02/03/19 02/04/19 02/04/19 23:00 05:02 05:15 WBC 9.5 RBC 3.00 L Hgb 10.2 L Hct 32.4 L MCV 108.0 H MCH 34.0 H MCHC 31.5 L RDW Std Deviation 55.2 H RDW Coeff of Mohsen 14.6 Plt Count 120 L MPV 10.6 Immature Gran % (Auto) Neut % (Auto) Not Reportable Lymph % (Auto) [place] % (Auto) Eos % (Auto) Baso % (Auto) Absolute Neuts (auto) 5.4 Absolute Lymphs (auto) 2.46 Total Counted 100 Neutrophils % (Manual) 71 H Band Neutrophils % 1 Lymphocytes % (Manual) 26 Monocytes % (Manual) 1 Eosinophils % (Manual) 1 Nucleated RBC % Diff Path Review May foll Platelet Estimate ADEQUATE RBC Morphology NORM C+C Specimen Type Sample Site pH Bicarbonate Actual POC Total CO2 Base Excess O2 Saturation O2 % ABG pCO2 ABG pO2 Dariusz Test Respiration Rate O2 Delivery Device Liter Flow Minute Volume Vent Mode Tidal Volume POC PEEP POC Pressure Suppt Pressure High Pressure Low Time High Time Low EPAP IPAP Blood Gas Notified Whom Blood Gas Notified Time Sodium Potassium Chloride Carbon Dioxide Anion Gap BUN Creatinine Estim Creat Clear Calc Est GFR (MDRD) Af Amer Est GFR (MDRD) Non-Af BUN/Creatinine Ratio Glucose Calcium POC Glucose 124 H 91 02/04/19 02/04/19 02/04/19 05:15 12:09 16:57 WBC RBC Hgb Hct MCV MCH MCHC RDW Std Deviation RDW Coeff of Mohsen Plt Count MPV Immature Gran % (Auto) Neut % (Auto) Lymph % (Auto) [place] % (Auto) Eos % (Auto) Baso % (Auto) Absolute Neuts (auto) Absolute Lymphs (auto) Total Counted Neutrophils % (Manual) Band Neutrophils % Lymphocytes % (Manual) Monocytes % (Manual) Eosinophils % (Manual) Nucleated RBC % Diff Path Review Platelet Estimate RBC Morphology Specimen Type Sample Site pH Bicarbonate Actual POC Total CO2 Base Excess O2 Saturation O2 % ABG pCO2 ABG pO2 Dariusz Test Respiration Rate O2 Delivery Device Liter Flow Minute Volume Vent Mode Tidal Volume POC PEEP POC Pressure Suppt Pressure High Pressure Low Time High Time Low EPAP IPAP Blood Gas Notified Whom Blood Gas Notified Time Sodium 138 Potassium 3.7 Chloride 94 L Carbon Dioxide 41.0 H Anion Gap 3 L BUN 29 H Creatinine 0.40 L Estim Creat Clear Calc 193.93 Est GFR (MDRD) Af Amer 278 Est GFR (MDRD) Non-Af 230 BUN/Creatinine Ratio 72.0 H Glucose 95 Calcium 8.5 POC Glucose 133 H 142 H 02/04/19 02/05/19 02/05/19 23:39 04:00 04:00 WBC 8.8 RBC 2.92 L Hgb 10.0 L Hct 31.8 L MCV 108.9 H MCH 34.2 H MCHC 31.4 L RDW Std Deviation 56.3 H RDW Coeff of Mohsen 14.9 H Plt Count 115 L MPV 10.6 Immature Gran % (Auto) 4.000 H Neut % (Auto) 68.9 Lymph % (Auto) 22.5 [place] % (Auto) 4.0 Eos % (Auto) 0.5 Baso % (Auto) 0.1 Absolute Neuts (auto) 6.1 Absolute Lymphs (auto) 1.99 Total Counted Neutrophils % (Manual) Band Neutrophils % Lymphocytes % (Manual) Monocytes % (Manual) Eosinophils % (Manual) Nucleated RBC % 0 Diff Path Review Platelet Estimate RBC Morphology Specimen Type Sample Site pH Bicarbonate Actual POC Total CO2 Base Excess O2 Saturation O2 % ABG pCO2 ABG pO2 Dariusz Test Respiration Rate O2 Delivery Device Liter Flow Minute Volume Vent Mode Tidal Volume POC PEEP POC Pressure Suppt Pressure High Pressure Low Time High Time Low EPAP IPAP Blood Gas Notified Whom Blood Gas Notified Time Sodium 140 Potassium 3.6 Chloride 98 Carbon Dioxide 40.0 H Anion Gap 2 L BUN 25 H Creatinine 0.33 L Estim Creat Clear Calc 235.07 Est GFR (MDRD) Af Amer 346 Est GFR (MDRD) Non-Af 286 BUN/Creatinine Ratio 74.9 H Glucose 107 H Calcium 8.5 POC Glucose 120 H 02/05/19 05:25 WBC RBC Hgb Hct MCV MCH MCHC RDW Std Deviation RDW Coeff of Mohsen Plt Count MPV Immature Gran % (Auto) Neut % (Auto) Lymph % (Auto) [place] % (Auto) Eos % (Auto) Baso % (Auto) Absolute Neuts (auto) Absolute Lymphs (auto) Total Counted Neutrophils % (Manual) Band Neutrophils % Lymphocytes % (Manual) Monocytes % (Manual) Eosinophils % (Manual) Nucleated RBC % Diff Path Review Platelet Estimate RBC Morphology Specimen Type Sample Site pH Bicarbonate Actual POC Total CO2 Base Excess O2 Saturation O2 % ABG pCO2 ABG pO2 Dariusz Test Respiration Rate O2 Delivery Device Liter Flow Minute Volume Vent Mode Tidal Volume POC PEEP POC Pressure Suppt Pressure High Pressure Low Time High Time Low EPAP IPAP Blood Gas Notified Whom Blood Gas Notified Time Sodium Potassium Chloride Carbon Dioxide Anion Gap BUN Creatinine Estim Creat Clear Calc Est GFR (MDRD) Af Amer Est GFR (MDRD) Non-Af BUN/Creatinine Ratio Glucose Calcium POC Glucose 95 Medical Necessity - Tobacco Use Smoking Status: Current every day smoker Tobacco Use: Cigarettes Assessment/Plan All Active Problems CVA (cerebral vascular accident) (Acute) Slurred speech (Acute) COPD exacerbation (Acute) RECOMMENDATIONS: 1. Continue assist control. Wean PEEP as tolerated. 2. Discussed with with POA about trach and PEG 3. Continue to hold diuretic and potassium repletion for now given blood pressures 4. Continue to wean FiO2 and PPI to maintain an oxygen saturation at or above 90%. 5. Continue bronchodilators. Continue prednisone. Add vest therapy 6. Continue tube feeds as ordered. 7. Continue appropriate ICU prophylaxis. IMPRESSIONS: 1. Acute on chronic hypoxemic respiratory failure secondary to presumed aspiration pneumonia The patient was emergently transferred to the ICU on the morning of January 26, where he did require intubation due to impending respiratory failure following an aspiration event. Patient now with multiple etiologies of hypoxic respiratory failure including COPD, H. influenzae and small pulmonary emboli. Patient is on anticoagulation. Patient continues to improve with diuresis, but is still requiring significant PEEP to maintain saturations. Patient with a mucous plug this morning. We will add vest therapy for aggressive pulmonary toileting. Given PEEP and FiO2 requirements, patient should likely be considered for a tracheostomy and PEG early next week. Will need to talk with the POA to see if this is agreeable. If not, extubation with no reintubation can be explored. 2. Septic shock secondary to presumed aspiration pneumonia Patient has been able to come off of pressor therapy at this point. Patient has completed the 10-day course of antibiotics. Blood pressures are marginal this morning, so diuresis has been held. We will continue to monitor. 3. COPD with exacerbation Inciting etiology appears to be aspiration event and possible pulmonary emboli. Continue current supportive measures as noted above along with bronchodilators and steroids. Wean oxygen as tolerated. Prednisone can likely be weaned over the next 8-12 days. 4. Slurred speech Intubated and sedated. Will need to reevaluate once patient is liberated from the ventilator. 5. History of venous thrombi embolic disease/hypertension/hyperlipidemia/seizure disorder/continuous tobacco dependency Complicates care, management, recovery and prognosis. Hold home antihypertensives and diuretics for now. Continue antiepileptics. 6. Hyperkalemia Patient receiving aggressive diuresis at this time. Potassium appears to remain stable with current supplementation regimen Addendum 1341: Discussed with patient's POA about patient's clinical situation. She understands that the patient has been intubated for 12 days and is starting to run the risk of irreversible damage. Patient's POA states that he would never want to give up. After review the risks, benefits and alternatives, patient will have trach and PEG arranged. Family is highly resistant to hospice or palliative services at this time. Consults have been placed. Social work is aware of the need for an LTAC. TIME: 70 minutes of critical care time, independent of procedures, was spent addressing the patient's acute on chronic hypoxemic respiratory failure, septic shock secondary to presumed aspiration pneumonia, COPD with exacerbation, review of all data and collaboration with the care team. (6 AM to 7:00 AM, 1 PM to 1:30 PM) Code Visit 9xxxx: [id number] Critical care first hour Multi Select Codes - Hospitalists' Procedures Procedures: 87109 Critial Care Addl 30 Min
[2019-02-05] MEDS: Propofol 10MG/Ml 1,000 MG/100 ML Bottle 17.5 MG CONT INF ×3 (09:12→19:50)
[2019-02-05] MEDS: predniSONE 20 MG Tablet 30 MG GT (09:13)
[2019-02-05] MEDS: CHLORHEXIDINE GLUC 2% CLOTH 1 EACH TOWELETTE TOPICAL (09:14)
[2019-02-05] MEDS: Chlorhexidine 15 ML PO ×2 (09:14→22:50)
[2019-02-05] MEDS: Senna/Docusate Sodium 1 Tablet 2 TABLET GT ×2 (09:15→22:50)
[2019-02-05] MEDS: Famotidine 20 MG Tablet GT ×2 (09:15→22:50)
--- NOTE | 2019-02-05 09:38 | CASEMGMT ---
Social Work Per physician, he would like to meet with pt HCPOA to discuss pt condition. Phone call to Chely Wills, TONY and SW requested visit today to speak with physician. Ms. Wills states she does not have transportation and cannot come in until Tuesday when hospital transportation has been arranged. Phone call to Alida in hospital transportation and sampler pickup for today at 12:30 has been arranged. Return call to Ms. Wills and she is agreeable to come to the hospital today via [facility] van at 12:30. Nurse made aware and will notify Dr. Gee. Shalini Ac, STRAIGHT LINE EDGER
[2019-02-05] MEDS: Insulin Lispro 100 UNIT/ML INSULN.PEN SC (11:42)
[2019-02-05 12:29] LABS: Pathologist Review Reviewed
[2019-02-05 12:32] LABS: Pathologist Review Reviewed
[2019-02-05 13:06] LABS: Bedside Glucose 157 mg/dL (70-110)
--- NOTE | 2019-02-05 13:30 | CASEMGMT ---
Social Work SW attended meeting with physician, pt HCPOA Chely Sierray and Chely's daughter María. Physician providing medical information and options. HCPOA choosing to move forward with trach/peg placement. SW provided written list of area LTACH's. Family is understanding of need for LTACH and will discuss options and let staff know of choice. Family made aware that bed availability and pt acceptance will play into facility placement. Support provided to Chely and María. Palliative Care made aware of pt change of status. RANDY Catherine CM updated on above. SW will remain available should further needs arise. ITALO Armas
--- NOTE | 2019-02-05 14:44 | CON.PCM_ITS ---
Reason for Consult Date of Consultation: 02/05/19 History of Present Illness: The patient is a 63 year old M admitted due to pneumonia and respiratory failure. Patient has been on the vent since admission about 11 to 12 days and unable to be weaned. Patient currently is sedated unable to answer any question s as he has been agitated on the vent. Dr. Gee did discuss trach and PEG with patient's JESSICAA Chely Wills who was agreeable. Patient does have small segmental PE on the right and is on therapeutic Lovenox. Dr. Gee was agreeable to holding the Lovenox night before morning of as well as 24 hours after PEG. Past Medical History Past Medical History (Chronic Problems): Chronic Problems Chronic respiratory failure with hypoxia (Chronic) Tobacco use (Chronic) HTN (hypertension) (Chronic) HLD (hyperlipidemia) (Chronic) Ulcer of right lower extremity with fat layer exposed (Chronic) Lower extremity edema (Chronic) History of DVT (deep vein thrombosis) (Chronic) History of pulmonary embolism (Chronic) Seizure disorder (Chronic) COPD (chronic obstructive pulmonary disease) (Chronic) Allergies No Known Allergies Allergy (Verified 01/23/19 17:51) Home Medications: Ambulatory Orders Medication Instructions Recorded Gabapentin [Neurontin] 300 mg PO TID 05/28/16 Potassium Chloride [K-Dur] 10 meq PO TID 05/28/16 Nitroglycerin (INPATIENT USE) 0.4 mg SUBLINGUAL Q5M PRN 12/12/17 [Nitrostat] Furosemide [Lasix] 40 mg PO BREAKFAST 04/29/18 Divalproex Sodium [Depakote ER] 1,000 mg PO QHS 05/02/18 Divalproex Sodium [Depakote ER] 500 mg PO 0700,1300 05/02/18 Pravastatin Sodium 40 mg PO QHS 05/02/18 Acetaminophen [Tylenol Tablet] 650 mg PO Q6H PRN PRN tablet 05/10/18 Guaifenesin [Mucinex] 600 mg PO BID 07/15/18 Furosemide [Lasix] 20 mg PO LUNCH 01/04/19 Mometasone/Formoterol [Dulera 200 1 puff IH BID 01/04/19 Mcg/5 Mcg Inhaler] Warfarin [Coumadin] 5 mg PO SUTUWETHSA 01/04/19 Albuterol Inhaler [Ventolin Hfa] 2 puff INHALATION Q4H PRN PRN #0 01/09/19 Ipratropium/Albuterol Sulfate 3 ml INHALATION Q4H PRN PRN #30 01/09/19 [Duoneb] ampul.neb Cholecalciferol (Vitamin D3) 50,000 unit PO MO 01/23/19 [Vitamin D] Warfarin Sodium 2.5 mg PO MOFR 01/23/19 Surgical History: appendectomy, - - Liver biopsy. Psychiatric History: No pertinent psych hx Lives: With Family - Patient lives with his fianc?e as well as her family. Smoking Status: Current every day smoker Tobacco Use: Cigarettes Alcohol: None Drugs: None - *Family History Maternal History Items: COPD, Heart Disease Paternal History Items: Unknown - Does not know his paternal medical history. Review of Systems Unable to obtain accurate/complete ROS d/t: Patient is on the vent and sedated Patient Problems: Active and Suspected Problems CVA (cerebral vascular accident) (Acute) Slurred speech (Acute) - Physical Exam Vitals/I&O's: Vital Signs Temp Pulse Resp BP Pulse Ox 97.8 F 69 12 89/56 L 97 02/05/19 12:00 02/05/19 14:00 02/05/19 14:00 02/05/19 14:00 02/05/19 14:00 Oxygen Flow Rate (L/min) 4 Oxygen Delivery Method Mechanical Ventilator Weight: 213 lb 13.574 oz Body Mass Index (BMI) 31.9 Intake and Output for Last 24 Hours 02/03/19 02/04/19 02/05/19 23:59 23:59 23:59 Intake Total 2810.81 / 3216.31 2513.89 / 2919.49 1214.01 / 1214.01 Output Total 2200 / 3100 2850 / 3100 1200 / 1200 Balance 610.81 / 116.31 -336.11 / -180.51 14. 14.01 General: - - Intubated and sedated HEENT: Atraumatic, - - OG and ET tube in place Cardiovascular: Regular rate Abdomen: Soft, Non-Distended Extremities: No clubbing, No cyanosis Skin: No rashes Neurological: - - Patient sedated Psych/Mental Status: - - Patient is sedated Laboratory Results 02/03/19 04:05: Diff Path Review Reviewed 02/04/19 05:15: Diff Path Review Reviewed 02/04/19 16:57: POC Glucose 142 H 02/04/19 23:39: POC Glucose 120 H 02/05/19 04:00: WBC 8.8, RBC 2.92 L, Hgb 10.0 L, Hct 31.8 L, MCV 108.9 H, MCH 34.2 H, MCHC 31.4 L, RDW Std Deviation 56.3 H, RDW Coeff of Mohsen 14.9 H, Plt Count 115 L, MPV 10.6, Immature Gran % (Auto) 4.000 H, Neut % (Auto) 68.9, Lymph % (Auto) 22.5, [place] % (Auto) 4.0, Eos % (Auto) 0.5, Baso % (Auto) 0.1, Absolute Neuts (auto) 6.1, Absolute Lymphs (auto) 1.99, Nucleated RBC % 0 02/05/19 04:00: Sodium 140, Potassium 3.6, Chloride 98, Carbon Dioxide 40.0 H, Anion Gap 2 L, BUN 25 H, Creatinine 0.33 L, Estim Creat Clear Calc 235.07, Est GFR (MDRD) Af Amer 346, Est GFR (MDRD) Non-Af 286, BUN/Creatinine Ratio 74.9 H, Glucose 107 H, Calcium 8.5 02/05/19 05:25: POC Glucose 95 02/05/19 11:41: POC Glucose 157 H Current Medications Acetaminophen (Tylenol) 650 mg PO Q6H PRN PRN PRN Reason: Non-cardiac pain (-12/14) Last Admin: 01/25/19 15:13 Dose: 650 mg Documented by: Acetaminophen (Tylenol Liquid) 650 mg GT Q6H PRN PRN PRN Reason: TEMP>101 Al Hydroxide/Mg Hydroxide (Mylanta Ii) 15 - 30 ml PO Q4H PRN PRN PRN Reason: INDIGESTION Albuterol Sulfate (Ventolin Aerosols) 2.5 mg INHALATION Q2H PRN PRN PRN Reason: dyspnea, wheezing Last Admin: 01/26/19 09:26 Dose: 2.5 mg Documented by: Albuterol/Ipratropium (Duoneb) 3 ml INHALATION Q4HWA.RT ELVER Last Admin: 02/05/19 11:00 Dose: 3 ml Documented by: Atorvastatin Calcium (Lipitor) 80 mg GT QHS [facility] Last Admin: 02/04/19 21:43 Dose: 80 mg Documented by: Chlorhexidine Gluconate () 15 ml PO BID [facility] Last Admin: 02/05/19 09:14 Dose: 15 ml Documented by: Chlorhexidine Gluconate () 1 each TOPICAL DAILY [facility] Last Admin: 02/05/19 09:14 Dose: 1 each Documented by: Dextrose (D50w Syringe) 0 gm IV X1 PRN; Protocol PRN Reason: Hypoglycemia Divalproex Sodium (Depakote Er) 500 mg PO 0700,1300 [facility] Last Admin: 01/26/19 13:30 Dose: Not Given Documented by: Divalproex Sodium (Depakote Er) 1,000 mg PO QHS [facility] Last Admin: 01/25/19 21:41 Dose: 1,000 mg Documented by: Enoxaparin Sodium (Lovenox) 100 mg SC Q12@0600,1800 [facility] Last Admin: 02/05/19 05:26 Dose: 100 mg Documented by: Famotidine (Pepcid) 20 mg GT BID [facility] Last Admin: 02/05/19 09:15 Dose: 20 mg Documented by: Gabapentin (Neurontin) 300 mg GT TID [facility] Last Admin: 02/05/19 05:26 Dose: 300 mg Documented by: Glucagon () 1 mg IM .X1 PRN PRN Reason: Hypoglycemia Guaifenesin (Robitussin) 10 ml GT Q6H PRN Guaifenesin (Robitussin) 10 ml GT Q6H [facility] Last Admin: 02/05/19 11:41 Dose: 10 ml Documented by: Sodium Chloride () 250 mls @ 15 mls/hr IV .[id number] PRN PRN Reason: Saline Flush Last Infusion: 02/03/19 17:32 Dose: Infused Documented by: Enteral Nutritional Formula (Vital Af 1.2 Truong Liquid) 1,000 mls @ 60 mls/hr GT .[id number] [facility] Last Admin: 02/04/19 17:00 Dose: 60 mls/hr Documented by: Fentanyl () 100 mls @ 15 mls/hr IV UD [facility]; Protocol Last Titration: 02/05/19 13:34 Dose: 125 mcg/hr, 12.5 mls/hr Documented by: Propofol (Diprivan) 1,000 mg in 100 mls @ 17.46 mls/hr CONT INF .Q5H44M [facility]; Protocol Last Titration: 02/05/19 13:00 Dose: 30.07 mcg/kg/min, 17.5 mls/hr Documented by: Insulin Human Lispro (Humalog Kwikpen (Bkc)) 0 unit SC Q6 [facility]; Protocol Last Admin: 02/05/19 11:42 Dose: 1 u Documented by: Magnesium Hydroxide (Milk Of Magnesia) 30 ml GT DAILY PRN PRN Reason: Constipation Last Admin: 01/30/19 09:33 Dose: 30 ml Documented by: Nicotine (Nicoderm Cq (Pbkc)) 21 mg TRANSDERM. DAILY [facility] Last Admin: 02/05/19 09:14 Dose: 21 mg Documented by: Nitroglycerin (Nitrostat) 0.4 mg SUBLINGUAL Q5M PRN PRN Reason: CARDIAC/CHEST PAIN Ondansetron HCl (Zofran) 4 mg IV Q8H PRN PRN PRN Reason: NAUSEA/VOMITING Polyethylene Glycol (Miralax) 17 gm GT BID [facility] Last Admin: 02/05/19 09:14 Dose: Not Given Documented by: Prednisone () 30 mg GT DAILY@0800 [facility] Last Admin: 02/05/19 09:13 Dose: 30 mg Documented by: Senna/Docusate Sodium (Senokot-S, Lila-Colace) 2 tablet GT BID [facility] Last Admin: 02/05/19 09:15 Dose: 2 tablet Documented by: Sodium Chloride () 10 - 40 ml IV UD PRN PRN Reason: SALINE FLUSH Last Admin: 02/03/19 05:56 Dose: 40 ml Documented by: Throat Lozenges (Cepacol Sore Throat Lozenge) 1 lozenge MUCOUS MEM Q2H PRN PRN PRN Reason: COUGH Valproic Acid (Depakene) 500 mg GT 4X/DAY [facility] Last Admin: 02/05/19 09:14 Dose: 500 mg Documented by: Assessment/Plan All Active Problems CVA (cerebral vascular accident) (Acute) Slurred speech (Acute) COPD exacerbation (Acute) 63-year-old male with hypoxia on the ventilator, malnutrition, need for PEG tube I have discussed the above with the patient's CARMENCITA Wills I have offered the patient EGD with PEG tube placement for evaluation. I have explained the risks/benefits of the procedure and described the procedure. I have discussed the risks with the POA, including but not limited to: infection, bleeding, perforation of the GI tract requiring emergency surgery, discussed the need to leave the tube in for at least 4 weeks as it is if it is removed prior to this patient may need emergency surgery as gastric contents may leak into the abdomen, inability to complete the procedure, injury to any internal organs (i.e.-colon), complications of anesthesia, etc. - the POA understands and agrees to proceed. I have answered all the patient's POA questions to the patient's POA's Satisfaction and the patient's POA has no further questions. We will plan to have patient's Lovenox held the night before and morning of. Will place PEG tube in the ICU about 1 PM, discussed with with Dr. Gee and Dr. Saldana. Agnes Pike M.D. Pager: [phone] [facility] [address] [place] [address], [facility], [address] [place] [address] Office: [phone] Code Visit Inpatient E&M: 29082 Init Hosp L2
[2019-02-05] MEDS: Vital AF 1.2 Cal Liquid 1,000 ML 60 ML GT (15:06)
--- NOTE | 2019-02-05 16:48 | CHAPLAIN ---
Type of Pastoral Visit ___ Initial Visit _x__ Follow-up Visit ___ On-call Visit ___ General Patient Visit ___ Spiritual Assessment ___ Family Conference ___ Bereavement ___ Rapid Response ___ Code Blue ___ Other (describe below) Pastoral Care Referral From ___ Patient ___ Family ___ Nurse ___ Physician ___ Equipment Maint Tech ___ Senior Linux Unix Engineer _x__ Other (describe below) Sacrament/Intervention ___ Active listening ___ Anointing ___ Christian ___ Bereavement ___ Communion ___ Gabby exploration ___ ___ Life review _x__ Prayer ___ Reconciliation ___ Sacrament of Sick _x__ Supportive presence ___ Wedding ___ Other (describe below) Pastoral Comments
[2019-02-05 17:46] LABS: Bedside Glucose 129 mg/dL (70-110)
[2019-02-05] MEDS: Atorvastatin Calcium 80 MG Tablet GT (22:49)
[2019-02-05] MEDS: Polyethylene Glycol 3350 17 GM PACKET GT (22:50)
[2019-02-05 23:56] LABS: Bedside Glucose 99 mg/dL (70-110)
[2019-02-06] VITALS (35 sets, daily range): BP systolic 83–111; BP diastolic 45–71; PULSE 66–93; RESP 12–14; TEMP 36.7–37.5; O2SAT 89–100; BMI 31.9
[2019-02-06] MEDS: Propofol 10MG/Ml 1,000 MG/100 ML Bottle 17.5 MG CONT INF ×5 (01:22→20:27)
[2019-02-06] MEDS: Vital AF 1.2 Cal Liquid 1,000 ML 60 ML GT (05:01)
[2019-02-06] MEDS: guaiFENesin 10 ML UDC (200MG/10ML) GT ×3 (05:06→18:55)
[2019-02-06] MEDS: Gabapentin 300 MG Capsule GT ×3 (05:06→22:32)
[2019-02-06 05:36] LABS: Bedside Glucose 97 mg/dL (70-110)
[2019-02-06 05:49] LABS: Absolute Lymphocyte Count 1.87 X10^3/uL (0.83-4.51); Absolute Neutrophil Count 6.9 X10^3/uL (2.0-7.7); Basophil# 0.02 X10^3/uL; Basophil% 0.2 % (0-1); Eosinophil# 0.08 X10^3/uL; Eosinophils% 0.8 % (0-5); Hematocrit 30.9 % (40-54); Hemoglobin 9.9 g/dL (13.0-16.5); Lymphocyte # 1.87 X10^3/ul (4.0); Lymphocyte % 19.6 % (19-41); Mean Corpuscular Volume 109.2 fL (80-94); Mean Platelet Vol. 10.2 fl (6.2-12.0); Monocyte# 0.46 X10^3/uL; Monocyte% 4.8 % (0-10); NRBC Flagged by Analyzer 0.2 % (0-5); Neutrophil # 6.88 X10^3/uL (2.7-7.7); Neutrophil % 72.1 % (47-70); Platelet Count 116 K/mm3 (150-450); RBC Distribution Width CV 15.1 % (11.6-14.6); Red Blood Count 2.83 M/mm3 (4.6-6.2); White Blood Count 9.6 K/mm3 (4.4-11.0)
[2019-02-06 06:08] LABS: Anion Gap 3 (5-15); BUN 23 mg/dL (7-18); BUN/Creat Ratio 74.4 RATIO (10-20); Calcium,Total 8.5 mg/dL (8.5-10.1); Chloride 98 mmol/L (98-107); Creatinine, Serum 0.31 mg/dL (0.70-1.30); EST Glomerular Filtration Rate 313 mL/min (>60); Est Glom Filt Rate - Afr Amer 378 mL/min (>60); Estimated Creatinine Clearance 250.24 ml/min; Glucose 101 mg/dL (74-106); Potassium 3.6 mmol/L (3.5-5.1); Sodium Level 141 mmol/L (136-145)
[2019-02-06] MEDS: Ipratropium/Albuterol Sulfate 3 ML AMPUL.NEB INHALATION ×4 (06:29→18:45)
--- NOTE | 2019-02-06 06:41 | PCM.PN.INT ---
Subjective: Patient did well overnight. Patient was able to be weaned to 50% FiO2 and 10 of PEEP. Patient did have a mucous plug incident, but did not require increased PEEP or FiO2 after lavage. Patient's tube feeds have been held. Patient is not receiving Lovenox and did not receive a spontaneous breathing trial secondary to plans for PEG placement today. General: - - Intubated and sedated. RASS -1. HEENT: Atraumatic, PERRLA, EOMI, Normocephalic, - - No scleral icterus or injection noted Oral: Moist Mucosa, No Gingival or Mucosal Lesions/ Ulcerations Neck: Supple, No JVD, No Nodes, Trachea Midline Lungs: No rhonchi, No wheeze, No rales, Diminished, - - Symmetric expansion. Cardiovascular: Regular rate, Regular Rhythm, Normal S1, Normal S2, No murmurs, No rub noted, No Gallop Abdomen: Bowel Sounds Present, Soft, Non Tender, Non-Distended Extremities: No cyanosis, Clubbing, Edema - Mild anasarca Skin: No rashes, No breakdown Musculoskeletal: No Tenderness to Palpation of Joints or Extremities Lymphatic: No Cervical, Supraclavicular, or Inguinal Adenopathy Neurological: Cranial nerves II-XII grossly intact, Neuro grossly intact, Motor Exam 5/5 strength throughout Psych/Mental Status: Flat Affect Vital Signs Temp Pulse Resp BP Pulse Ox 37.1 C 68 14 102/60 93 02/06/19 05:00 02/06/19 06:00 02/06/19 06:00 02/06/19 06:00 02/06/19 06:00 Oxygen Flow Rate (L/min) 4 Oxygen Delivery Method Mechanical Ventilator Weight: 97.1 kg Body Mass Index (BMI) 31.9 Intake and Output for Last 24 Hours 02/04/19 02/05/19 02/06/19 23:59 23:59 23:59 Intake Total 2513.89 / 2919.49 1561.49 / 1982.49 905.58 / 905.58 Output Total 2850 / 3100 1450 / 1700 450 / 450 Balance -336.11 / -180.51 111.49 / 282.49 455.58 / 455.58 Labs (Last 48 Hours) 02/03/19 02/04/19 02/04/19 04:05 05:15 12:09 WBC RBC Hgb Hct MCV MCH MCHC RDW Std Deviation RDW Coeff of Mohsen Plt Count MPV Immature Gran % (Auto) Neut % (Auto) Lymph % (Auto) [place] % (Auto) Eos % (Auto) Baso % (Auto) Absolute Neuts (auto) 5.4 Absolute Lymphs (auto) 2.46 Total Counted 100 Neutrophils % (Manual) 71 H Band Neutrophils % 1 Lymphocytes % (Manual) 26 Monocytes % (Manual) 1 Eosinophils % (Manual) 1 Nucleated RBC % Diff Path Review Reviewed Reviewed Platelet Estimate ADEQUATE RBC Morphology NORM C+C Sodium Potassium Chloride Carbon Dioxide Anion Gap BUN Creatinine Estim Creat Clear Calc Est GFR (MDRD) Af Amer Est GFR (MDRD) Non-Af BUN/Creatinine Ratio Glucose Calcium POC Glucose 133 H 02/04/19 02/04/19 02/05/19 16:57 23:39 04:00 WBC 8.8 RBC 2.92 L Hgb 10.0 L Hct 31.8 L MCV 108.9 H MCH 34.2 H MCHC 31.4 L RDW Std Deviation 56.3 H RDW Coeff of Mohsen 14.9 H Plt Count 115 L MPV 10.6 Immature Gran % (Auto) 4.000 H Neut % (Auto) 68.9 Lymph % (Auto) 22.5 [place] % (Auto) 4.0 Eos % (Auto) 0.5 Baso % (Auto) 0.1 Absolute Neuts (auto) 6.1 Absolute Lymphs (auto) 1.99 Total Counted Neutrophils % (Manual) Band Neutrophils % Lymphocytes % (Manual) Monocytes % (Manual) Eosinophils % (Manual) Nucleated RBC % 0 Diff Path Review Platelet Estimate RBC Morphology Sodium Potassium Chloride Carbon Dioxide Anion Gap BUN Creatinine Estim Creat Clear Calc Est GFR (MDRD) Af Amer Est GFR (MDRD) Non-Af BUN/Creatinine Ratio Glucose Calcium POC Glucose 142 H 120 H 02/05/19 02/05/19 02/05/19 04:00 05:25 11:41 WBC RBC Hgb Hct MCV MCH MCHC RDW Std Deviation RDW Coeff of Mohsen Plt Count MPV Immature Gran % (Auto) Neut % (Auto) Lymph % (Auto) [place] % (Auto) Eos % (Auto) Baso % (Auto) Absolute Neuts (auto) Absolute Lymphs (auto) Total Counted Neutrophils % (Manual) Band Neutrophils % Lymphocytes % (Manual) Monocytes % (Manual) Eosinophils % (Manual) Nucleated RBC % Diff Path Review Platelet Estimate RBC Morphology Sodium 140 Potassium 3.6 Chloride 98 Carbon Dioxide 40.0 H Anion Gap 2 L BUN 25 H Creatinine 0.33 L Estim Creat Clear Calc 235.07 Est GFR (MDRD) Af Amer 346 Est GFR (MDRD) Non-Af 286 BUN/Creatinine Ratio 74.9 H Glucose 107 H Calcium 8.5 POC Glucose 95 157 H 02/05/19 02/05/19 02/06/19 17:38 22:47 05:31 WBC RBC Hgb Hct MCV MCH MCHC RDW Std Deviation RDW Coeff of Mohsen Plt Count MPV Immature Gran % (Auto) Neut % (Auto) Lymph % (Auto) [place] % (Auto) Eos % (Auto) Baso % (Auto) Absolute Neuts (auto) Absolute Lymphs (auto) Total Counted Neutrophils % (Manual) Band Neutrophils % Lymphocytes % (Manual) Monocytes % (Manual) Eosinophils % (Manual) Nucleated RBC % Diff Path Review Platelet Estimate RBC Morphology Sodium Potassium Chloride Carbon Dioxide Anion Gap BUN Creatinine Estim Creat Clear Calc Est GFR (MDRD) Af Amer Est GFR (MDRD) Non-Af BUN/Creatinine Ratio Glucose Calcium POC Glucose 129 H 99 97 02/06/19 02/06/19 05:40 05:40 WBC 9.6 RBC 2.83 L Hgb 9.9 L Hct 30.9 L MCV 109.2 H MCH 35.0 H MCHC 32.0 RDW Std Deviation 58.0 H RDW Coeff of Mohsen 15.1 H Plt Count 116 L MPV 10.2 Immature Gran % (Auto) 2.500 H Neut % (Auto) 72.1 H Lymph % (Auto) 19.6 [place] % (Auto) 4.8 Eos % (Auto) 0.8 Baso % (Auto) 0.2 Absolute Neuts (auto) 6.9 Absolute Lymphs (auto) 1.87 Total Counted Neutrophils % (Manual) Band Neutrophils % Lymphocytes % (Manual) Monocytes % (Manual) Eosinophils % (Manual) Nucleated RBC % 0.2 Diff Path Review Platelet Estimate RBC Morphology Sodium 141 Potassium 3.6 Chloride 98 Carbon Dioxide 40.0 H Anion Gap 3 L BUN 23 H Creatinine 0.31 L Estim Creat Clear Calc 250.24 Est GFR (MDRD) Af Amer 378 Est GFR (MDRD) Non-Af 313 BUN/Creatinine Ratio 74.4 H Glucose 101 Calcium 8.5 POC Glucose Medical Necessity - Tobacco Use Smoking Status: Current every day smoker Tobacco Use: Cigarettes Assessment/Plan All Active Problems CVA (cerebral vascular accident) (Acute) Slurred speech (Acute) COPD exacerbation (Acute) RECOMMENDATIONS: 1. Continue assist control. Wean PEEP as tolerated. 2. PEG placement today. Potential trach on Tuesday 3. Continue to hold diuretic and potassium repletion for now given blood pressures 4. Continue to wean FiO2 and PPI to maintain an oxygen saturation at or above 90%. 5. Continue bronchodilators. Continue prednisone and vest therapy for now 6. Continue tube feeds as ordered. 7. Continue appropriate ICU prophylaxis. IMPRESSIONS: 1. Acute on chronic hypoxemic respiratory failure secondary to presumed aspiration pneumonia The patient was emergently transferred to the ICU on the morning of January 26, where he did require intubation due to impending respiratory failure following an aspiration event. Patient now with multiple etiologies of hypoxic respiratory failure including COPD, H. influenzae and small pulmonary emboli. Patient is on anticoagulation. Patient continues to improve with diuresis, but is still requiring significant PEEP to maintain saturations. Patient with a mucous plug daily. Respiratory is not reporting significant mobilization with vest therapy. Clinical suspicion is patient could have a mucous plug with extubation leading to recurrent intubation. Patient's POA is agreeable to a trach and PEG. PEG will be placed today. Tracheostomy is tentatively Tuesday. 2. Septic shock secondary to presumed aspiration pneumonia Patient has been able to come off of pressor therapy at this point. Patient has completed the 10-day course of antibiotics. Blood pressures are slightly improved this morning, but diuresis has been held. We will continue to monitor. 3. COPD with exacerbation Inciting etiology appears to be aspiration event and possible pulmonary emboli. Continue current supportive measures as noted above along with bronchodilators and steroids. Wean oxygen as tolerated. Prednisone can likely be weaned over the next 8-12 days. Likely wean prednisone tomorrow 4. Slurred speech Intubated and sedated. Will need to reevaluate once patient is liberated from the ventilator. 5. History of venous thrombi embolic disease/hypertension/hyperlipidemia/seizure disorder/continuous tobacco dependency Complicates care, management, recovery and prognosis. Hold home antihypertensives and diuretics for now. Continue antiepileptics. 6. Hyperkalemia Patient receiving aggressive diuresis at this time. Potassium appears to remain stable with current supplementation regimen TIME: 31 minutes of critical care time, independent of procedures, was spent addressing the patient's acute on chronic hypoxemic respiratory failure, COPD with exacerbation, review of all data and collaboration with the care team. (5:55 AM to 6:45 AM) Code Visit 9xxxx: [id number] Critical care first hour
[2019-02-06] MEDS: Alteplase 2 MG/2 ML Vial IV ×2 (06:54→07:56)
[2019-02-06] MEDS: CHLORHEXIDINE GLUC 2% CLOTH 1 EACH TOWELETTE TOPICAL (07:00)
--- NOTE | 2019-02-06 07:09 | PCM.PN.HOSP ---
Patient Problems: Active and Suspected Problems CVA (cerebral vascular accident) (Acute) Slurred speech (Acute) Subjective: Per discussion with staff no acute events overnight except occasional mucus plugging but resolved without any acute concerns. Patient this morning per discussion with staff appears mildly more edematous in his upper and lower extremities, weight 214 pounds mildly increased over the last 2 days. Currently tube feeds held as well as Lovenox for planned PEG tube this afternoon. Patient with no evidence of fevers, chills, nausea, emesis, abdominal pain, chest pain or dyspnea but difficult given sedation although currently awake and looking around but not following any commands. Objective: Physical Examination: General: Intubated, sedated, no obvious distress, laying in the ICU bed, looking around but not following any commands. Skin: normal color, turgor, no icterus, cyanosis. HEENT: AT/NC, not following any EOM requests, PERRLA, mildly dry MM, intubated, sedated. Lungs: Bilaterally diminished breath sounds, greater bases, intubated, symmetric rise, no current obvious rales, ronchi or wheezing. Heart: Regular rate and rhythm; no gallop, rub audible. Abdomen: soft, obese, NTTP, ND, normal BS. Extremities: no cyanosis, clubbing, mild BL LE ankle to distal martell 1+ edema, BL hand to mid-forearm 2+ edema, mildly increased from day prior. Neurological: Intubated, sedated, no obvious distress, awake and looking around but not following any commands, laying in the ICU bed; cognitive function not baseline intact; pupils equally reactive to light and accomodation; cranial nerves unable to be assessed given sedated status, strength accordingly severely globally decreased. Psychiatric: affect appears flat, currently not agitated, no acute evidence of depressive or anxiety feelings. Vitals/I&O's: Vital Signs Temp Pulse Resp BP Pulse Ox 98.7 F 68 14 102/60 93 02/06/19 05:00 02/06/19 06:00 02/06/19 06:00 02/06/19 06:00 02/06/19 06:00 Oxygen Flow Rate (L/min) 4 Oxygen Delivery Method Mechanical Ventilator Weight: 214 lb 1.102 oz Body Mass Index (BMI) 31.9 Intake and Output for Last 24 Hours 02/04/19 02/05/19 02/06/19 23:59 23:59 23:59 Intake Total 2513.89 / 2919.49 1561.49 / 1982.49 935.00 / 935.00 Output Total 2850 / 3100 1450 / 1700 450 / 450 Balance -336.11 / -180.51 111.49 / 282.49 485.00 / 485.00 Laboratory Results 02/03/19 04:05: Diff Path Review Reviewed 02/04/19 05:15: Diff Path Review Reviewed 02/05/19 11:41: POC Glucose 157 H 02/05/19 17:38: POC Glucose 129 H 02/05/19 22:47: POC Glucose 99 02/06/19 05:31: POC Glucose 97 02/06/19 05:40: WBC 9.6, RBC 2.83 L, Hgb 9.9 L, Hct 30.9 L, MCV 109.2 H, MCH 35.0 H, MCHC 32.0, RDW Std Deviation 58.0 H, RDW Coeff of Mohsen 15.1 H, Plt Count 116 L, MPV 10.2, Immature Gran % (Auto) 2.500 H, Neut % (Auto) 72.1 H, Lymph % (Auto) 19.6, [place] % (Auto) 4.8, Eos % (Auto) 0.8, Baso % (Auto) 0.2, Absolute Neuts (auto) 6.9, Absolute Lymphs (auto) 1.87, Nucleated RBC % 0.2 02/06/19 05:40: Sodium 141, Potassium 3.6, Chloride 98, Carbon Dioxide 40.0 H, Anion Gap 3 L, BUN 23 H, Creatinine 0.31 L, Estim Creat Clear Calc 250.24, Est GFR (MDRD) Af Amer 378, Est GFR (MDRD) Non-Af 313, BUN/Creatinine Ratio 74.4 H, Glucose 101, Calcium 8.5 Current Medications Acetaminophen (Tylenol) 650 mg PO Q6H PRN PRN PRN Reason: Non-cardiac pain (-12/14) Last Admin: 01/25/19 15:13 Dose: 650 mg Documented by: Acetaminophen (Tylenol Liquid) 650 mg GT Q6H PRN PRN PRN Reason: TEMP>101 Al Hydroxide/Mg Hydroxide (Mylanta Ii) 15 - 30 ml PO Q4H PRN PRN PRN Reason: INDIGESTION Albuterol Sulfate (Ventolin Aerosols) 2.5 mg INHALATION Q2H PRN PRN PRN Reason: dyspnea, wheezing Last Admin: 01/26/19 09:26 Dose: 2.5 mg Documented by: Albuterol/Ipratropium (Duoneb) 3 ml INHALATION Q4HWA.RT [facility] Last Admin: 02/06/19 06:29 Dose: 3 ml Documented by: Atorvastatin Calcium (Lipitor) 80 mg GT QHS [facility] Last Admin: 02/05/19 22:49 Dose: 80 mg Documented by: Chlorhexidine Gluconate () 15 ml PO BID [facility] Last Admin: 02/05/19 22:50 Dose: 15 ml Documented by: Chlorhexidine Gluconate () 1 each TOPICAL DAILY [facility] Last Admin: 02/05/19 09:14 Dose: 1 each Documented by: Dextrose (D50w Syringe) 0 gm IV X1 PRN; Protocol PRN Reason: Hypoglycemia Divalproex Sodium (Depakote Er) 500 mg PO 0700,1300 [facility] Last Admin: 01/26/19 13:30 Dose: Not Given Documented by: Divalproex Sodium (Depakote Er) 1,000 mg PO QHS [facility] Last Admin: 01/25/19 21:41 Dose: 1,000 mg Documented by: Enoxaparin Sodium (Lovenox) 100 mg SC Q12@0600,1800 [facility] Last Admin: 02/05/19 05:26 Dose: 100 mg Documented by: Famotidine (Pepcid) 20 mg GT BID [facility] Last Admin: 02/05/19 22:50 Dose: 20 mg Documented by: Gabapentin (Neurontin) 300 mg GT TID [facility] Last Admin: 02/06/19 05:06 Dose: 300 mg Documented by: Glucagon () 1 mg IM .X1 PRN PRN Reason: Hypoglycemia Guaifenesin (Robitussin) 10 ml GT Q6H PRN Guaifenesin (Robitussin) 10 ml GT Q6H [facility] Last Admin: 02/06/19 05:06 Dose: 10 ml Documented by: Sodium Chloride () 250 mls @ 15 mls/hr IV .[id number] PRN PRN Reason: Saline Flush Last Infusion: 02/03/19 17:32 Dose: Infused Documented by: Enteral Nutritional Formula (Vital Af 1.2 Truong Liquid) 1,000 mls @ 60 mls/hr GT .[id number] [facility] Last Admin: 02/06/19 05:01 Dose: 60 mls/hr Documented by: Fentanyl () 100 mls @ 15 mls/hr IV UD [facility]; Protocol Last Titration: 02/06/19 06:00 Dose: 125 mcg/hr, 12.5 mls/hr Documented by: Propofol (Diprivan) 1,000 mg in 100 mls @ 17.478 mls/hr CONT INF .Q5H44M [facility]; Protocol Last Titration: 02/06/19 06:00 Dose: 30 mcg/kg/min, 17.5 mls/hr Documented by: Insulin Human Lispro (Humalog Kwikpen (Bkc)) 0 unit SC Q6 [facility]; Protocol Last Admin: 02/06/19 05:36 Dose: Not Given Documented by: Magnesium Hydroxide (Milk Of Magnesia) 30 ml GT DAILY PRN PRN Reason: Constipation Last Admin: 01/30/19 09:33 Dose: 30 ml Documented by: Nicotine (Nicoderm Cq (Pbkc)) 21 mg TRANSDERM. DAILY [facility] Last Admin: 02/05/19 09:14 Dose: 21 mg Documented by: Nitroglycerin (Nitrostat) 0.4 mg SUBLINGUAL Q5M PRN PRN Reason: CARDIAC/CHEST PAIN Ondansetron HCl (Zofran) 4 mg IV Q8H PRN PRN PRN Reason: NAUSEA/VOMITING Polyethylene Glycol (Miralax) 17 gm GT BID [facility] Last Admin: 02/05/19 22:50 Dose: 17 gm Documented by: Prednisone () 30 mg GT DAILY@0800 [facility] Last Admin: 02/05/19 09:13 Dose: 30 mg Documented by: Senna/Docusate Sodium (Senokot-S, Lila-Colace) 2 tablet GT BID [facility] Last Admin: 02/05/19 22:50 Dose: 2 tablet Documented by: Sodium Chloride () 10 - 40 ml IV UD PRN PRN Reason: SALINE FLUSH Last Admin: 02/03/19 05:56 Dose: 40 ml Documented by: Throat Lozenges (Cepacol Sore Throat Lozenge) 1 lozenge MUCOUS MEM Q2H PRN PRN PRN Reason: COUGH Valproic Acid (Depakene) 500 mg GT 4X/DAY [facility] Last Admin: 02/05/19 22:49 Dose: 500 mg Documented by: STROKE Vital Signs/Narrative: Vital Signs Temp Pulse Resp BP Pulse Ox 02/06/19 06:00 68 14 102/60 93 02/06/19 05:00 98.7 F 72 12 105/60 89 02/06/19 04:45 72 12 91 02/06/19 04:00 98.7 F 75 12 107/61 90 Medical Necessity - Tobacco Use Smoking Status: Current every day smoker Tobacco Use: Cigarettes Assessment/Plan All Active Problems CVA (cerebral vascular accident) (Acute) Slurred speech (Acute) COPD exacerbation (Acute) The patient is a 63 y/o M w/ PMHx: Chronic COPD w/ Chronic Hypoxic Respiratory Failure (4-5L NC) following w/ [facility] Pulmonary, Obesity, HTN, HLD, Depression and Anxiety, Hx DVT/PE on coumadin, Seizure disorder, Tobacco use ongoing who presents to the [facility] ED on 01/23/19 with history of 2 to 3 days of progressively worsening fatigue, weakness generally, dyspnea worse with exertion with mildly productive cough of yellow-shields sputum with ongoing wheezing x 2 days. 1. Acute Septic Shock secondary to Acute on Chronic Hypoxic Respiratory Failure secondary to Acute on chronic COPD exacerbation and Aspiration Pneumonia: Initial ED evaluation with chest x-ray with chronic changes with CBC with no market WBC elevation and maintained on oxygen supplementation however clinically worsened and required transition to the ICU with intubation, sedation with negative blood cultures, sputum cultures with Haemophilus influenza and Streptococcus pneumonia, maintained on IV Unasyn x 10-day course of antibiotic therapy, treated on ATC duoneb, PRN albuterol, IV Solu-Medrol transitioned to prednisone taper, aggressive IV fluid administration given concurrent septic shock treated initially with Levophed, transitioned off, still failing spontaneous breathing trials, deferred trial 02/06/19 for planned intervention as noted. Given patient slow weight increase with edema may need to pulse dose with IV Lasix with close monitoring of renal function, will review with ICU. Plan 02/06/19 1 pm PEG tube per General Surgery and 02/09/19 Trach per ENT. Will need LTAC once clinically appropriate. 2. Acute Pulmonary Embolism: CT chest with small segmental right-sided PE with history of prior PE and DVT, could initially transition to Eliquis secondary to crush reaction with Coumadin and Depakote, transitioned to therapeutic Lovenox held today for planned PEG placement. 3. Hypertension: Regimen held upon admission given #1, BP low normal, off pressor therapy, PRN agents as needed. 4. Hyperlipidemia: Continue on high-dose statin therapy. 5. History of DVT/PE: Upon admission position from Coumadin to Eliquis secondary to cross-reactivity of medications, given acute presentation with #1, #2 transitioned to therapeutic Lovenox held today for planned PEG placement. 6. Obesity: Weight loss and lifestyle changes encouraged, nutrition consulted. 7. Seizure disorder: Continued on Depakote regimen. 8. Tobacco Abuse: Encouraged upon admission cessation, inpatient consultation per RT if clinically becomes appropriate given #1, NR if desired. 9. GERD: Famotidine. 10. Microcytic anemia: Hemoglobin 14.4 however repeat 01/24/2019 12.8, 02/06/2019 hemoglobin 9.9 and has primarily remained 10-11 range, B12 normal level, RBC folate pending. 11. DVT prophylaxis: SCDs, therapeutic Lovenox held today for planned PEG placement. 12. CODE status: Full Code. Code Visit Inpatient E&M: 61868 Subs Hosp L3
[2019-02-06] MEDS: fentaNYL drip 100 ML 12.5 MCG IV ×3 (08:13→23:10)
--- NOTE | 2019-02-06 08:37 | PN.SURG_ITS ---
Patient Problems: Active and Suspected Problems CVA (cerebral vascular accident) (Acute) Slurred speech (Acute) Subjective: Patient is intubated and sedated, Lovenox has been held last night and this morning and tube feeds were stopped at 5 AM. - Physical Exam Vitals/I&O's: Vital Signs Temp Pulse Resp BP Pulse Ox 98.7 F 72 13 102/60 92 02/06/19 05:00 02/06/19 06:27 02/06/19 06:27 02/06/19 06:00 02/06/19 06:27 Oxygen Flow Rate (L/min) 4 Oxygen Delivery Method Mechanical Ventilator Weight: 214 lb 1.102 oz Body Mass Index (BMI) 31.9 Intake and Output for Last 24 Hours 02/04/19 02/05/19 02/06/19 23:59 23:59 23:59 Intake Total 2513.89 / 2919.49 1561.49 / 1982.49 980.62 / 980.62 Output Total 2850 / 3100 1450 / 1700 450 / 450 Balance -336.11 / -180.51 111.49 / 282.49 530.62 / 530.62 General: - - Intubated and sedated Cardiovascular: Regular rate Abdomen: Soft, Non-Distended Laboratory Results 02/03/19 04:05: Diff Path Review Reviewed 02/04/19 05:15: Diff Path Review Reviewed 02/05/19 11:41: POC Glucose 157 H 02/05/19 17:38: POC Glucose 129 H 02/05/19 22:47: POC Glucose 99 02/06/19 05:31: POC Glucose 97 02/06/19 05:40: WBC 9.6, RBC 2.83 L, Hgb 9.9 L, Hct 30.9 L, MCV 109.2 H, MCH 35.0 H, MCHC 32.0, RDW Std Deviation 58.0 H, RDW Coeff of Mohsen 15.1 H, Plt Count 116 L, MPV 10.2, Immature Gran % (Auto) 2.500 H, Neut % (Auto) 72.1 H, Lymph % (Auto) 19.6, [place] % (Auto) 4.8, Eos % (Auto) 0.8, Baso % (Auto) 0.2, Absolute Neuts (auto) 6.9, Absolute Lymphs (auto) 1.87, Nucleated RBC % 0.2 02/06/19 05:40: Sodium 141, Potassium 3.6, Chloride 98, Carbon Dioxide 40.0 H, Anion Gap 3 L, BUN 23 H, Creatinine 0.31 L, Estim Creat Clear Calc 250.24, Est GFR (MDRD) Af Amer 378, Est GFR (MDRD) Non-Af 313, BUN/Creatinine Ratio 74.4 H, Glucose 101, Calcium 8.5 Current Medications Acetaminophen (Tylenol) 650 mg PO Q6H PRN PRN PRN Reason: Non-cardiac pain (-12/14) Last Admin: 01/25/19 15:13 Dose: 650 mg Documented by: Acetaminophen (Tylenol Liquid) 650 mg GT Q6H PRN PRN PRN Reason: TEMP>101 Al Hydroxide/Mg Hydroxide (Mylanta Ii) 15 - 30 ml PO Q4H PRN PRN PRN Reason: INDIGESTION Albuterol Sulfate (Ventolin Aerosols) 2.5 mg INHALATION Q2H PRN PRN PRN Reason: dyspnea, wheezing Last Admin: 01/26/19 09:26 Dose: 2.5 mg Documented by: Albuterol/Ipratropium (Duoneb) 3 ml INHALATION Q4HWA.RT [facility] Last Admin: 02/06/19 06:29 Dose: 3 ml Documented by: Atorvastatin Calcium (Lipitor) 80 mg GT QHS [facility] Last Admin: 02/05/19 22:49 Dose: 80 mg Documented by: Chlorhexidine Gluconate () 15 ml PO BID [facility] Last Admin: 02/05/19 22:50 Dose: 15 ml Documented by: Chlorhexidine Gluconate () 1 each TOPICAL DAILY [facility] Last Admin: 02/05/19 09:14 Dose: 1 each Documented by: Dextrose (D50w Syringe) 0 gm IV X1 PRN; Protocol PRN Reason: Hypoglycemia Divalproex Sodium (Depakote Er) 500 mg PO 0700,1300 [facility] Last Admin: 01/26/19 13:30 Dose: Not Given Documented by: Divalproex Sodium (Depakote Er) 1,000 mg PO QHS [facility] Last Admin: 01/25/19 21:41 Dose: 1,000 mg Documented by: Enoxaparin Sodium (Lovenox) 100 mg SC Q12@0600,1800 [facility] Last Admin: 02/05/19 05:26 Dose: 100 mg Documented by: Famotidine (Pepcid) 20 mg GT BID [facility] Last Admin: 02/05/19 22:50 Dose: 20 mg Documented by: Gabapentin (Neurontin) 300 mg GT TID [facility] Last Admin: 02/06/19 05:06 Dose: 300 mg Documented by: Glucagon () 1 mg IM .X1 PRN PRN Reason: Hypoglycemia Guaifenesin (Robitussin) 10 ml GT Q6H PRN Guaifenesin (Robitussin) 10 ml GT Q6H [facility] Last Admin: 02/06/19 05:06 Dose: 10 ml Documented by: Sodium Chloride () 250 mls @ 15 mls/hr IV .[id number] PRN PRN Reason: Saline Flush Last Infusion: 02/03/19 17:32 Dose: Infused Documented by: Enteral Nutritional Formula (Vital Af 1.2 Truong Liquid) 1,000 mls @ 60 mls/hr GT .[id number] [facility] Last Admin: 02/06/19 05:01 Dose: 60 mls/hr Documented by: Fentanyl () 100 mls @ 15 mls/hr IV UD [facility]; Protocol Last Admin: 02/06/19 08:13 Dose: 125 mcg/hr, 12.5 mls/hr Documented by: Propofol (Diprivan) 1,000 mg in 100 mls @ 17.478 mls/hr CONT INF .Q5H44M [facility]; Protocol Last Titration: 02/06/19 08:00 Dose: 30 mcg/kg/min, 17.5 mls/hr Documented by: Insulin Human Lispro (Humalog Kwikpen (Bkc)) 0 unit SC Q6 [facility]; Protocol Last Admin: 02/06/19 05:36 Dose: Not Given Documented by: Magnesium Hydroxide (Milk Of Magnesia) 30 ml GT DAILY PRN PRN Reason: Constipation Last Admin: 01/30/19 09:33 Dose: 30 ml Documented by: Nicotine (Nicoderm Cq (Pbkc)) 21 mg TRANSDERM. DAILY [facility] Last Admin: 02/05/19 09:14 Dose: 21 mg Documented by: Nitroglycerin (Nitrostat) 0.4 mg SUBLINGUAL Q5M PRN PRN Reason: CARDIAC/CHEST PAIN Ondansetron HCl (Zofran) 4 mg IV Q8H PRN PRN PRN Reason: NAUSEA/VOMITING Polyethylene Glycol (Miralax) 17 gm GT BID [facility] Last Admin: 02/05/19 22:50 Dose: 17 gm Documented by: Prednisone () 30 mg GT DAILY@0800 [facility] Last Admin: 02/05/19 09:13 Dose: 30 mg Documented by: Senna/Docusate Sodium (Senokot-S, Lila-Colace) 2 tablet GT BID [facility] Last Admin: 02/05/19 22:50 Dose: 2 tablet Documented by: Sodium Chloride () 10 - 40 ml IV UD PRN PRN Reason: SALINE FLUSH Last Admin: 02/03/19 05:56 Dose: 40 ml Documented by: Throat Lozenges (Cepacol Sore Throat Lozenge) 1 lozenge MUCOUS MEM Q2H PRN PRN PRN Reason: COUGH Valproic Acid (Depakene) 500 mg GT 4X/DAY [facility] Last Admin: 02/05/19 22:49 Dose: 500 mg Documented by: Medical Necessity - Tobacco Use Smoking Status: Current every day smoker Tobacco Use: Cigarettes Assessment/Plan All Active Problems CVA (cerebral vascular accident) (Acute) Slurred speech (Acute) COPD exacerbation (Acute) 63-year-old male with hypoxia on the ventilator, malnutrition, need for PEG tube Plan to place PEG about 1 PM in the ICU today. Agnes Pike M.D. Pager: [phone] [facility] [address] [place] [address], [address] [place] [address] Office: [phone]
--- NOTE | 2019-02-06 08:40 | NURSING ---
spoke w/pt's POA, Chely Wills at length re PEG need/procedure. questions answered. consent given. verified per Dee South RN.
--- NOTE | 2019-02-06 09:34 | CASEMGMT ---
RANDY CM Note: Plan is for PEG tube placement today, and possible trach on Tuesday by Dr. Morales. Per staff, Dr. Morales cannot perform trach sooner. -Call to [facility] [place]. Discussed LTAC choices. Per Chely, she and daughter are still discussing which LTAC they would like pt to go to- [facility] or [facility]. RANDY DAVIDSON requested to call back this afternoon for decision. Chely is agreeable. Tari NOVAKN RN ACM
[2019-02-06] MEDS: Chlorhexidine 15 ML PO ×2 (10:00→22:31)
[2019-02-06] MEDS: 0.9% Saline Lock 10 ML Syringe IV (10:28)
[2019-02-06 12:36] LABS: Bedside Glucose 74 mg/dL (70-110)
[2019-02-06] MEDS: TITRATION PARAMETER CHANGE 1 EACH IV (13:05)
[2019-02-06] MEDS: Dext 5%-0.45% NS 1,000 ML 50 ML IV (13:05)
--- NOTE | 2019-02-06 13:28 | NURSING ---
Dr. Pike/Dr. Gee and endo staff present in pt room. 1330 HR 70 R 12 BP 94/50 SpO2 98 1335 HR 68 R 12 BP 88/51 (63) SpO2 98 procedure begun. 1340 HR 68 R 12 BP 120/77 (89) SpO2 95 1345 HR 69 R 12 BP 108/55 (71) SpO2 [address] propofol returned to 30mcq/kg/min and fentanyl to 125mcq/hr. 1350 HR 68 R 12 BP 111/56 (73) SpO2 94 FiO2 decreased to 40% by Dr. Gee 1355 HR 80 R 12 BP 114/65 (78) SpO2 90 1400 HR 93 R 12 BP 105/59(73) SpO2 92
--- NOTE | 2019-02-06 14:04 | CASEMGMT ---
RANDY Note: Attempted to call [facility] to discuss Lt[facility] choice. No answer. Will try again tomorrow. Tari BAÑUELOS RN ACM
--- NOTE | 2019-02-06 14:05 | OP.EGD_ITS ---
Patient Name: Isiah Constantino Procedure Date: 02/06/2019 1:32 PM Date of : 1955 Age: 63 Procedure: Upper GI endoscopy Indications: Malnutrition Providers: Agnes Pike MD Medicines: Monitored Anesthesia Care per Dr. Gee Patient Profile: This is a 63 year old male. Complications: No immediate complications. Procedure: Pre-Anesthesia Assessment: - Prior to the procedure, a History and Physical was performed, and patient medications and allergies were reviewed. The patient's tolerance of previous anesthesia was also reviewed. The risks and benefits of the procedure and the sedation options and risks were discussed with the patient. All questions were answered, and informed consent was obtained. Prior Anticoagulants: The patient has taken Lovenox (enoxaparin), last dose was 1 day prior to procedure. ASA Grade Assessment: IV - A patient with severe systemic disease that is a constant threat to life. After reviewing the risks and benefits, the patient was deemed in satisfactory condition to undergo the procedure. After obtaining informed consent, the endoscope was passed under direct vision. Throughout the procedure, the patient's blood pressure, pulse, and oxygen saturations were monitored continuously. The gastroscope was introduced through the mouth, and advanced to the second part of duodenum. The upper GI endoscopy was accomplished without difficulty. The patient tolerated the procedure well. Scope In: 1:35:12 PM Scope Out: 1:46:12 PM Total Procedure Duration Time 0 hours 11 minutes 0 seconds Findings: The Z-line was variable and was found 40 cm from the incisors. Patchy moderately erythematous mucosa without bleeding was found in the gastric body. The examined duodenum was normal. The patient was placed in the supine position for PEG placement. The stomach was insufflated to appose gastric and abdominal morales. A site was located in the body of the stomach with excellent transillumination for placement. The abdominal wall was marked and prepped in a sterile manner. The area was anesthetized with 3 mL of 0.5% lidocaine. The trocar needle was introduced through the abdominal wall and into the stomach under direct endoscopic view. A snare was introduced through the endoscope and opened in the gastric lumen. The guide wire was passed through the trocar and into the open snare. The snare was closed around the guide wire. The endoscope and snare were removed, pulling the wire out through the mouth. A skin incision was made at the site of needle insertion. The externally removable 20 Fr Bard gastrostomy tube was lubricated. The G-tube was tied to the guide wire and pulled through the mouth and into the stomach. The trocar needle was removed, and the gastrostomy tube was pulled out from the stomach through the skin. The external bumper was attached to the gastrostomy tube, and the tube was cut to remove the guide wire. The final position of the gastrostomy tube was confirmed by relook endoscopy, and skin marking noted to be 3 cm at the external bumper. The final tension and compression of the abdominal wall by the PEG tube and external bumper were checked and revealed that the bumper was loose and lightly touching the skin. The feeding tube was capped, and the tube site cleaned and dressed. Estimated blood loss was minimal. Impression: - Z-line variable, 40 cm from the incisors. - Erythematous mucosa in the gastric body. - Normal examined duodenum. - An externally removable PEG placement was successfully completed. - No specimens collected. Recommendation: - - Observe patient in ICU [Time] [Reason]. - Please follow the post-PEG recommendations including: change dressing on top of bumper daily, may use PEG today for meds and water, may use PEG tomorrow for feedings and clean site with soap and water daily and dry thoroughly. - Hold anticoagulation for 24 hours after placement, then can restart - Continue present medications. Procedure Code(s): --- Professional --- 46803, Esophagogastroduodenoscopy, flexible, transoral; with directed placement of percutaneous gastrostomy tube Diagnosis Code(s): --- Professional --- K22.8, Other specified diseases of esophagus K31.89, Other diseases of stomach and duodenum E46, Unspecified protein-calorie malnutrition CPT copyright 2017 [employer]. All rights reserved. The codes documented in this report are preliminary and upon broadcast checker review may be revised to meet current compliance requirements. MD Agnes Daugherty MD 02/06/2019 2:04:56 PM This report has been signed electronically. Number of Addenda: 0 Note Initiated On: 02/06/2019 1:32 PM
[2019-02-06] MEDS: predniSONE 20 MG Tablet 30 MG GT (14:14)
[2019-02-06] MEDS: Senna/Docusate Sodium 1 Tablet 2 TABLET GT ×2 (14:16→22:32)
[2019-02-06] MEDS: Cefazolin 2 GM in 0.9% Normal Saline 100 ML IV (17:17)
[2019-02-06 19:06] LABS: Bedside Glucose 110 mg/dL (70-110)
[2019-02-06] MEDS: Polyethylene Glycol 3350 17 GM PACKET GT (22:33)
[2019-02-06] MEDS: Atorvastatin Calcium 80 MG Tablet GT (22:33)
[2019-02-07] VITALS (34 sets, daily range): BP systolic 85–112; BP diastolic 45–63; PULSE 55–81; RESP 12–24; TEMP 36.3–36.9; O2SAT 90–98; BMI 31.9
[2019-02-07] MEDS: guaiFENesin 10 ML UDC (200MG/10ML) GT ×4 (00:14→20:05)
[2019-02-07 00:26] LABS: Bedside Glucose 118 mg/dL (70-110)
--- NOTE | 2019-02-07 01:12 | NURSING ---
Patient did not void on own, bladder scanned for 429ml. Straight cath done per MD order for 500ml of clear hillary urine. Condom cath placed back on patient. Patient tolerated procedure well.
[2019-02-07] MEDS: Propofol 10MG/Ml 1,000 MG/100 ML Bottle 17.5 MG CONT INF ×2 (01:35→07:09)
[2019-02-07] MEDS: Gabapentin 300 MG Capsule GT ×3 (05:24→21:42)
[2019-02-07 05:36] LABS: Bedside Glucose 98 mg/dL (70-110)
[2019-02-07 06:10] LABS: Absolute Lymphocyte Count 1.15 X10^3/uL (0.83-4.51); Absolute Neutrophil Count 5.9 X10^3/uL (2.0-7.7); Basophil# 0.01 X10^3/uL; Basophil% 0.1 % (0-1); Eosinophil# 0.05 X10^3/uL; Eosinophils% 0.6 % (0-5); Hematocrit 27.7 % (40-54); Hemoglobin 9.3 g/dL (13.0-16.5); Lymphocyte # 1.15 X10^3/ul (4.0); Lymphocyte % 14.9 % (19-41); Mean Corp Hgb Conc 33.6 g/dL (32-36); Mean Corpuscular Hgb 36.2 pg (27.0-32.0); Mean Corpuscular Volume 107.8 fL (80-94); Mean Platelet Vol. 10.4 fl (6.2-12.0); Monocyte# 0.45 X10^3/uL; Monocyte% 5.8 % (0-10); NRBC Flagged by Analyzer 0 % (0-5); Neutrophil # 5.94 X10^3/uL (2.7-7.7); Neutrophil % 76.8 % (47-70); Platelet Count 121 K/mm3 (150-450); RBC Distribution Width CV 15.2 % (11.6-14.6); Red Blood Count 2.57 M/mm3 (4.6-6.2); White Blood Count 7.7 K/mm3 (4.4-11.0)
[2019-02-07] MEDS: Ipratropium/Albuterol Sulfate 3 ML AMPUL.NEB INHALATION ×5 (06:22→23:07)
[2019-02-07 06:45] LABS: ALB/GLOB Ratio 0.5 RATIO (0.9-2.4); AST(SGOT) 30 U/L (15-37); Alanine Aminotransfer ALT/SGPT 21 U/L (16-61); Albumin, Serum 1.8 g/dL (3.2-5.0); Alkaline Phosphatase 43 U/L (45-117); Anion Gap 3 (5-15); BUN 15 mg/dL (7-18); BUN/Creat Ratio 61.2 RATIO (10-20); Calcium,Total 7.7 mg/dL (8.5-10.1); Chloride 97 mmol/L (98-107); Creatinine, Serum 0.24 mg/dL (0.70-1.30); EST Glomerular Filtration Rate 409 mL/min (>60); Est Glom Filt Rate - Afr Amer 494 mL/min (>60); Globulin 3.3 g/dL (2.2-4.2); Glucose 104 mg/dL (74-106); Potassium 3.4 mmol/L (3.5-5.1); Protein, Total 5.1 g/dL (6.4-8.2); Sodium Level 137 mmol/L (136-145)
--- NOTE | 2019-02-07 07:10 | PCM.PN.INT ---
Subjective: Patient did okay overnight. Patient did require straight catheterization once secondary to urinary retention. Patient's blood pressures have been marginal, but no fluid boluses have been required. Patient is currently n.p.o. secondary to PEG placement, so some D5 maintenance fluids were initiated secondary to marginal blood sugars. Patient has had some mild improvement on oxygenation, but is still on PEEP of 8 and 60%, so no spontaneous breathing trial was completed. Patient was able to mobilize some secretions yesterday with saline bullet, but respiratory is reporting little to no production this morning with the use of vest therapy. General: - - RASS -1. Anasarca. HEENT: Atraumatic, PERRLA, EOMI, Normocephalic, - - Slight scleral injection Oral: Moist Mucosa, No Gingival or Mucosal Lesions/ Ulcerations Neck: Supple, No Nodes, Trachea Midline, JVD, Right Lungs: No rhonchi, No wheeze, No rales, Diminished, - - Symmetric expansion. No dullness to percussion. Cardiovascular: Regular rate, Regular Rhythm, Normal S1, Normal S2, No murmurs, No rub noted, No Gallop Abdomen: Bowel Sounds Present, Soft, Non Tender, Non-Distended Extremities: No cyanosis, Capillary Refill Less than 3 Seconds, Clubbing, Edema Skin: No rashes, No breakdown Musculoskeletal: No Tenderness to Palpation of Joints or Extremities Lymphatic: No Cervical, Supraclavicular, or Inguinal Adenopathy Neurological: Cranial nerves II-XII grossly intact, Neuro grossly intact, Motor Exam 5/5 strength throughout Psych/Mental Status: Flat Affect Vital Signs Temp Pulse Resp BP Pulse Ox 36.6 C 57 L 12 90/51 L 93 02/07/19 05:00 02/07/19 06:00 02/07/19 06:00 02/07/19 06:00 02/07/19 06:00 Oxygen Flow Rate (L/min) 4 Oxygen Delivery Method Mechanical Ventilator Weight: 98.3 kg Body Mass Index (BMI) 31.9 Intake and Output for Last 24 Hours 02/05/19 02/06/19 02/07/19 23:59 23:59 23:59 Intake Total 1561.49 / 1982.49 1986.25 / 2514.17 1151.25 / 1151.25 Output Total 1450 / 1700 625 / 950 925 / 925 Balance 111.49 / 282.49 1361.25 / 1564.17 226.25 / 226.25 Labs (Last 48 Hours) 02/03/19 02/04/19 02/05/19 04:05 05:15 11:41 WBC RBC Hgb Hct MCV MCH MCHC RDW Std Deviation RDW Coeff of Mohsen Plt Count MPV Immature Gran % (Auto) Neut % (Auto) Lymph % (Auto) Nicholas % (Auto) Eos % (Auto) Baso % (Auto) Absolute Neuts (auto) Absolute Lymphs (auto) Nucleated RBC % Diff Path Review Reviewed Reviewed Sodium Potassium Chloride Carbon Dioxide Anion Gap BUN Creatinine Estim Creat Clear Calc Est GFR (MDRD) Af Amer Est GFR (MDRD) Non-Af BUN/Creatinine Ratio Glucose Calcium Total Bilirubin AST ALT Alkaline Phosphatase Total Protein Albumin Globulin Albumin/Globulin Ratio POC Glucose 157 H 02/05/19 02/05/19 02/06/19 17:38 22:47 05:31 WBC RBC Hgb Hct MCV MCH MCHC RDW Std Deviation RDW Coeff of Mohsen Plt Count MPV Immature Gran % (Auto) Neut % (Auto) Lymph % (Auto) Nicholas % (Auto) Eos % (Auto) Baso % (Auto) Absolute Neuts (auto) Absolute Lymphs (auto) Nucleated RBC % Diff Path Review Sodium Potassium Chloride Carbon Dioxide Anion Gap BUN Creatinine Estim Creat Clear Calc Est GFR (MDRD) Af Amer Est GFR (MDRD) Non-Af BUN/Creatinine Ratio Glucose Calcium Total Bilirubin AST ALT Alkaline Phosphatase Total Protein Albumin Globulin Albumin/Globulin Ratio POC Glucose 129 H 99 97 02/06/19 02/06/19 02/06/19 05:40 05:40 12:33 WBC 9.6 RBC 2.83 L Hgb 9.9 L Hct 30.9 L MCV 109.2 H MCH 35.0 H MCHC 32.0 RDW Std Deviation 58.0 H RDW Coeff of Mohsen 15.1 H Plt Count 116 L MPV 10.2 Immature Gran % (Auto) 2.500 H Neut % (Auto) 72.1 H Lymph % (Auto) 19.6 Nicholas % (Auto) 4.8 Eos % (Auto) 0.8 Baso % (Auto) 0.2 Absolute Neuts (auto) 6.9 Absolute Lymphs (auto) 1.87 Nucleated RBC % 0.2 Diff Path Review Sodium 141 Potassium 3.6 Chloride 98 Carbon Dioxide 40.0 H Anion Gap 3 L BUN 23 H Creatinine 0.31 L Estim Creat Clear Calc 250.24 Est GFR (MDRD) Af Amer 378 Est GFR (MDRD) Non-Af 313 BUN/Creatinine Ratio 74.4 H Glucose 101 Calcium 8.5 Total Bilirubin AST ALT Alkaline Phosphatase Total Protein Albumin Globulin Albumin/Globulin Ratio POC Glucose 74 02/06/19 02/07/19 02/07/19 18:38 00:11 05:23 WBC RBC Hgb Hct MCV MCH MCHC RDW Std Deviation RDW Coeff of Mohsen Plt Count MPV Immature Gran % (Auto) Neut % (Auto) Lymph % (Auto) Nicholas % (Auto) Eos % (Auto) Baso % (Auto) Absolute Neuts (auto) Absolute Lymphs (auto) Nucleated RBC % Diff Path Review Sodium Potassium Chloride Carbon Dioxide Anion Gap BUN Creatinine Estim Creat Clear Calc Est GFR (MDRD) Af Amer Est GFR (MDRD) Non-Af BUN/Creatinine Ratio Glucose Calcium Total Bilirubin AST ALT Alkaline Phosphatase Total Protein Albumin Globulin Albumin/Globulin Ratio POC Glucose 110 118 H 98 02/07/19 02/07/19 06:00 06:00 WBC 7.7 RBC 2.57 L Hgb 9.3 L Hct 27.7 L MCV 107.8 H MCH 36.2 H MCHC 33.6 RDW Std Deviation 58.0 H RDW Coeff of Mohsen 15.2 H Plt Count 121 L MPV 10.4 Immature Gran % (Auto) 1.800 H Neut % (Auto) 76.8 H Lymph % (Auto) 14.9 L Nicholas % (Auto) 5.8 Eos % (Auto) 0.6 Baso % (Auto) 0.1 Absolute Neuts (auto) 5.9 Absolute Lymphs (auto) 1.15 Nucleated RBC % 0 Diff Path Review Sodium 137 Potassium 3.4 L Chloride 97 L Carbon Dioxide 37.0 H Anion Gap 3 L BUN 15 Creatinine 0.24 L Estim Creat Clear Calc 323.22 Est GFR (MDRD) Af Amer 494 Est GFR (MDRD) Non-Af 409 BUN/Creatinine Ratio 61.2 H Glucose 104 Calcium 7.7 L Total Bilirubin 0.60 AST 30 ALT 21 Alkaline Phosphatase 43 L Total Protein 5.1 L Albumin 1.8 L Globulin 3.3 Albumin/Globulin Ratio 0.5 L POC Glucose Medical Necessity - Tobacco Use Smoking Status: Current every day smoker Tobacco Use: Cigarettes Assessment/Plan All Active Problems CVA (cerebral vascular accident) (Acute) Slurred speech (Acute) COPD exacerbation (Acute) RECOMMENDATIONS: 1. Continue assist control. Wean PEEP as tolerated. 2. Initiation of tube feeds per surgery. Potential trach on Tuesday 3. Discontinue IV fluids once tube feeds can be reinitiated 4. Continue to wean FiO2 and PPI to maintain an oxygen saturation at or above 90%. 5. Continue bronchodilators. Continue prednisone. Possibly transition to IPPV from vest 6. Reinitiate Lovenox therapy after 24 hours past the procedure 7. Continue appropriate ICU prophylaxis. IMPRESSIONS: 1. Acute on chronic hypoxemic respiratory failure secondary to presumed aspiration pneumonia The patient was emergently transferred to the ICU on the morning of January 26, where he did require intubation due to impending respiratory failure following an aspiration event. Patient now with multiple etiologies of hypoxic respiratory failure including COPD, H. influenzae and small pulmonary emboli. Patient is on anticoagulation. Patient continues to improve with diuresis, but is still requiring significant PEEP to maintain saturations. Patient has not had a spontaneous breathing trial in 2 days. Some secretion mobilization was noted yesterday with saline, but vest therapy is not having significant response. Possibly transition to IPPV for pulmonary toileting. No definitive time given yet for tracheostomy. 2. Septic shock secondary to presumed aspiration pneumonia Patient has been able to come off of pressor therapy at this point. Patient has completed the 10-day course of antibiotics. Blood pressures are slightly improved this morning, but diuresis has been held. We will continue to monitor. Patient with very poor nutritional status and low intravascular oncotic pressure leading to anasarca. 3. COPD with exacerbation Inciting etiology appears to be aspiration event and possible pulmonary emboli. Continue current supportive measures as noted above along with bronchodilators and steroids. Wean oxygen as tolerated. Prednisone can likely be weaned over the next 5-9 days. Likely wean prednisone tomorrow 4. Slurred speech Intubated and sedated. Will need to reevaluate once patient is liberated from the ventilator. 5. History of venous thrombi embolic disease/hypertension/hyperlipidemia/seizure disorder/continuous tobacco dependency Complicates care, management, recovery and prognosis. Hold home antihypertensives and diuretics for now. Continue antiepileptics. 6. Hyperkalemia Patient receiving aggressive diuresis at this time. Potassium appears to remain stable with current supplementation regimen TIME: 33 minutes of critical care time, independent of procedures, was spent addressing the patient's acute on chronic hypoxemic respiratory failure, COPD with exacerbation, review of all data and collaboration with the care team. (6 AM to 7 AM) Code Visit 9xxxx: [id number] Critical care first hour
[2019-02-07] MEDS: fentaNYL drip 100 ML 12.5 MCG IV ×2 (07:12→15:43)
--- NOTE | 2019-02-07 08:18 | PN_ITS ---
Patient Problems: Active and Suspected Problems CVA (cerebral vascular accident) (Acute) Slurred speech (Acute) Subjective: Patient status post PEG tube the day prior, tube feeds initiated. Patient more alert this morning upon evaluation, able to nod head to questions which per discussion with ICU physician he has done intermittently. Weight has steadily increased, currently 216 pounds, was on gentle hydration overnight with temporary tube feed hold. Per discussion with nursing staff no acute events and continue plan for now trach placement this upcoming Tuesday and following LTAC possibly early the next week. No obvious evidence of fevers, chills, nausea, emesis, abdominal pain, chest pain or dyspnea. Objective: Physical Examination: General: Intubated, sedated but more alert today and actually nodding head to some questions, no obvious distress, seated upright in the ICU bed, following some commands currently. Skin: normal color, turgor, no icterus, cyanosis. HEENT: AT/NC, EOMI, PERRLA, mildly dry MM, intubated, sedated. Lungs: Bilaterally diminished breath sounds, greater bases, intubated, symmetric rise, no current obvious rales, ronchi or wheezing. Heart: Regular rate and rhythm; no gallop, rub audible. Abdomen: soft, obese, NTTP, ND, normal BS. Extremities: no cyanosis, clubbing, mild BL LE ankle to distal martell 1+ edema, BL hand to mid-forearm 2+ edema, similar to day prior. Neurological: Intubated, sedated but more alert today and actually nodding head to some questions, no obvious distress, seated upright in the ICU bed, following some commands currently; cognitive function not baseline intact but improved from day prior; pupils equally reactive to light and accomodation; cranial nerves unable to be assessed appear intact but given current mildly sedated, intubated status incomplete, strength severely global decreased given current presentation. Psychiatric: affect appears more alert, still flat, no acute evidence of depressive or anxiety feelings. Vitals/I&O's: Vital Signs Temp Pulse Resp BP Pulse Ox 97.8 F 65 12 103/56 L 91 02/07/19 05:00 02/07/19 07:00 02/07/19 07:00 02/07/19 07:00 02/07/19 07:00 Oxygen Flow Rate (L/min) 4 Oxygen Delivery Method Mechanical Ventilator Weight: 216 lb 11.43 oz Body Mass Index (BMI) 31.9 Intake and Output for Last 24 Hours 02/05/19 02/06/19 02/07/19 23:59 23:59 23:59 Intake Total 1561.49 / 1982.49 1986.25 / 2514.17 1185.99 / 1185.99 Output Total 1450 / 1700 625 / 950 925 / 925 Balance 111.49 / 282.49 1361.25 / 1564.17 260.99 / 260.99 Laboratory Results 02/06/19 12:33: POC Glucose 74 02/06/19 18:38: POC Glucose 110 02/07/19 00:11: POC Glucose 118 H 02/07/19 05:23: POC Glucose 98 02/07/19 06:00: WBC 7.7, RBC 2.57 L, Hgb 9.3 L, Hct 27.7 L, MCV 107.8 H, MCH 36.2 H, MCHC 33.6, RDW Std Deviation 58.0 H, RDW Coeff of Mohsen 15.2 H, Plt Count 121 L, MPV 10.4, Immature Gran % (Auto) 1.800 H, Neut % (Auto) 76.8 H, Lymph % (Auto) 14.9 L, Levy % (Auto) 5.8, Eos % (Auto) 0.6, Baso % (Auto) 0.1, Absolute Neuts (auto) 5.9, Absolute Lymphs (auto) 1.15, Nucleated RBC % 0 02/07/19 06:00: Sodium 137, Potassium 3.4 L, Chloride 97 L, Carbon Dioxide 37.0 H, Anion Gap 3 L, BUN 15, Creatinine 0.24 L, Estim Creat Clear Calc 323.22, Est GFR (MDRD) Af Amer 494, Est GFR (MDRD) Non-Af 409, BUN/Creatinine Ratio 61.2 H, Glucose 104, Calcium 7.7 L, Total Bilirubin 0.60, AST 30, ALT 21, Alkaline Phosphatase 43 L, Total Protein 5.1 L, Albumin 1.8 L, Globulin 3.3, Albumin/Globulin Ratio 0.5 L Current Medications Acetaminophen (Tylenol) 650 mg PO Q6H PRN PRN PRN Reason: Non-cardiac pain (-12/14) Last Admin: 01/25/19 15:13 Dose: 650 mg Documented by: Acetaminophen (Tylenol Liquid) 650 mg GT Q6H PRN PRN PRN Reason: TEMP>101 Al Hydroxide/Mg Hydroxide (Mylanta Ii) 15 - 30 ml PO Q4H PRN PRN PRN Reason: INDIGESTION Albuterol Sulfate (Ventolin Aerosols) 2.5 mg INHALATION Q2H PRN PRN PRN Reason: dyspnea, wheezing Last Admin: 01/26/19 09:26 Dose: 2.5 mg Documented by: Albuterol/Ipratropium (Duoneb) 3 ml INHALATION Q4HWA.RT [facility] Last Admin: 02/07/19 06:22 Dose: 3 ml Documented by: Atorvastatin Calcium (Lipitor) 80 mg GT QHS [facility] Last Admin: 02/06/19 22:33 Dose: 80 mg Documented by: Chlorhexidine Gluconate () 15 ml PO BID [facility] Last Admin: 02/06/19 22:31 Dose: 15 ml Documented by: Chlorhexidine Gluconate () 1 each TOPICAL DAILY [facility] Last Admin: 02/06/19 07:00 Dose: 1 each Documented by: Dextrose (D50w Syringe) 0 gm IV X1 PRN; Protocol PRN Reason: Hypoglycemia Divalproex Sodium (Depakote Er) 500 mg PO 0700,1300 [facility] Last Admin: 01/26/19 13:30 Dose: Not Given Documented by: Divalproex Sodium (Depakote Er) 1,000 mg PO QHS [facility] Last Admin: 01/25/19 21:41 Dose: 1,000 mg Documented by: Enoxaparin Sodium (Lovenox) 100 mg SC Q12@0600,1800 [facility] Last Admin: 02/05/19 05:26 Dose: 100 mg Documented by: Gabapentin (Neurontin) 300 mg GT TID [facility] Last Admin: 02/07/19 05:24 Dose: 300 mg Documented by: Glucagon () 1 mg IM .X1 PRN PRN Reason: Hypoglycemia Guaifenesin (Robitussin) 10 ml GT Q6H PRN Guaifenesin (Robitussin) 10 ml GT Q6H [facility] Last Admin: 02/07/19 05:24 Dose: 10 ml Documented by: Sodium Chloride () 250 mls @ 15 mls/hr IV .[id number] PRN PRN Reason: Saline Flush Last Infusion: 02/03/19 17:32 Dose: Infused Documented by: Enteral Nutritional Formula (Vital Af 1.2 Truong Liquid) 1,000 mls @ 60 mls/hr GT .[id number] [facility] Last Admin: 02/06/19 22:47 Dose: Not Given Documented by: Fentanyl () 100 mls @ 15 mls/hr IV UD [facility]; Protocol Last Admin: 02/07/19 07:12 Dose: 125 mcg/hr, 12.5 mls/hr Documented by: Propofol (Diprivan) 1,000 mg in 100 mls @ 17.694 mls/hr CONT INF .Q5H40M [facility]; Protocol Last Admin: 02/07/19 07:09 Dose: 30 mcg/kg/min, 17.5 mls/hr Documented by: Dextrose/Sodium Chloride () 1,000 mls @ 50 mls/hr IV .Q20H [facility] Last Infusion: 02/07/19 06:04 Dose: 50 mls/hr Documented by: Insulin Human Lispro (Humalog Kwikpen (Bkc)) 0 unit SC Q6 [facility]; Protocol Last Admin: 02/07/19 05:24 Dose: Not Given Documented by: Lansoprazole (Lansoprazole) 30 mg GT DAILY [facility] Magnesium Hydroxide (Milk Of Magnesia) 30 ml GT DAILY PRN PRN Reason: Constipation Last Admin: 01/30/19 09:33 Dose: 30 ml Documented by: Nicotine (Nicoderm Cq (Pbkc)) 21 mg TRANSDERM. DAILY [facility] Last Admin: 02/06/19 14:13 Dose: 21 mg Documented by: Nitroglycerin (Nitrostat) 0.4 mg SUBLINGUAL Q5M PRN PRN Reason: CARDIAC/CHEST PAIN Ondansetron HCl (Zofran) 4 mg IV Q8H PRN PRN PRN Reason: NAUSEA/VOMITING Polyethylene Glycol (Miralax) 17 gm GT BID [facility] Last Admin: 02/06/19 22:33 Dose: 17 gm Documented by: Prednisone () 20 mg GT DAILY@0800 [facility] Senna/Docusate Sodium (Senokot-S, Lila-Colace) 2 tablet GT BID [facility] Last Admin: 02/06/19 22:32 Dose: 2 tablet Documented by: Sodium Chloride () 10 - 40 ml IV UD PRN PRN Reason: SALINE FLUSH Last Admin: 02/06/19 10:28 Dose: 20 ml Documented by: Throat Lozenges (Cepacol Sore Throat Lozenge) 1 lozenge MUCOUS MEM Q2H PRN PRN PRN Reason: COUGH Valproic Acid (Depakene) 500 mg GT 4X/DAY [place]VER Last Admin: 02/06/19 22:32 Dose: 500 mg Documented by: STROKE Vital Signs/Narrative: Vital Signs Temp Pulse Resp BP Pulse Ox 02/07/19 07:00 65 12 103/56 L 91 02/07/19 06:00 57 L 12 90/51 L 93 02/07/19 05:00 97.8 F 61 12 98/55 L 94 Medical Necessity - Tobacco Use Smoking Status: Current every day smoker Tobacco Use: Cigarettes Assessment/Plan All Active Problems CVA (cerebral vascular accident) (Acute) Slurred speech (Acute) COPD exacerbation (Acute) The patient is a 63 y/o M w/ PMHx: Chronic COPD w/ Chronic Hypoxic Respiratory Failure (4-5L NC) following w/ [facility] Pul[facility], Obesity, HTN, HLD, Depression and Anxiety, Hx DVT/PE on coumadin, Seizure disorder, Tobacco use ongoing who presents to the [facility] ED on 01/23/19 with history of 2 to 3 days of progressively worsening fatigue, weakness generally, dyspnea worse with exertion with mildly productive cough of yellow-shields sputum with ongoing wheezing x 2 days. 1. Acute Septic Shock secondary to Acute on Chronic Hypoxic Respiratory Failure secondary to Acute on chronic COPD exacerbation and Aspiration Pneumonia: Initial ED evaluation with chest x-ray with chronic changes with CBC with no market WBC elevation and maintained on oxygen supplementation however clinically worsened and required transition to the ICU with intubation, sedation with neg ative blood cultures, sputum cultures with Haemophilus influenza and Streptococcus pneumonia, maintained on IV Unasyn x 10-day course of antibiotic therapy, treated on ATC duoneb, PRN albuterol, IV Solu-Medrol transitioned to prednisone taper, aggressive IV fluid administration given concurrent septic shock treated initially with Levophed, transitioned off, still failing spontaneous breathing trials, deferred trial 02/06/19 for planned intervention as noted. Given patient slow weight increase with edema may need to pulse dose with IV Lasix with close monitoring of renal function, will review with ICU. 02/06/19 PEG tube per General Surgery with tube feed initiation. Confirmed plan for 02/09/19 Trach per ENT, unclear time. Per discussions with ICU attending as long as no events following this intervention possible LTAC placement Tuesday or Tuesday if able. 2. Acute Pulmonary Embolism: CT chest with small segmental right-sided PE with history of prior PE and DVT, could initially transition to Eliquis secondary to crush reaction with Coumadin and Depakote, transitioned to therapeutic Lovenox, continue although will be held for trach placement temporarily. 3. Hypertension: Regimen held upon admission given #1, BP low normal, off pressor therapy, PRN agents as needed. 4. Hyperlipidemia: Continue on high-dose statin therapy. 5. History of DVT/PE: Upon admission position from Coumadin to Eliquis secondary to cross-reactivity of medications, given acute presentation with #1, #2 transitioned to therapeutic Lovenox, continue although will need held for trach placement temporarily. 6. Obesity: Weight loss and lifestyle changes encouraged, nutrition consulted. 7. Seizure disorder: Continued on Depakote regimen. 8. Tobacco Abuse: Encouraged upon admission cessation, inpatient consultation per RT if clinically becomes appropriate given #1, NR if desired. 9. GERD: Famotidine. 10. Microcytic anemia: Hemoglobin 14.4 however repeat 01/24/2019 12.8, 02/07/2019 hemoglobin 9.3 and has primarily remained 10-11 range, B12 normal level, RBC folate pending. 11. DVT prophylaxis: SCDs, therapeutic Lovenox, continue although will be held for trach placement temporarily. 12. CODE status: Full Code. Code Visit Inpatient E&M: 93950 Subs Hosp L2
--- NOTE | 2019-02-07 09:13 | PCM.PN.SRG ---
Patient Problems: Active and Suspected Problems CVA (cerebral vascular accident) (Acute) Slurred speech (Acute) Subjective: Patient is able to follow some commands this morning still on propofol. - Physical Exam Vitals/I&O's: Vital Signs Temp Pulse Resp BP Pulse Ox 97.8 F 65 12 103/56 L 91 02/07/19 05:00 02/07/19 07:00 02/07/19 07:00 02/07/19 07:00 02/07/19 07:00 Oxygen Flow Rate (L/min) 4 Oxygen Delivery Method Mechanical Ventilator Weight: 216 lb 11.43 oz Body Mass Index (BMI) 31.9 Intake and Output for Last 24 Hours 02/05/19 02/06/19 02/07/19 23:59 23:59 23:59 Intake Total 1561.49 / 1982.49 1986.25 / 2514.17 1185.99 / 1185.99 Output Total 1450 / 1700 625 / 950 925 / 925 Balance 111.49 / 282.49 1361.25 / 1564.17 260.99 / 260.99 General: Alert, No apparent distress, - - Sedated/intubated Abdomen: Soft, Non-Distended, Tender - Near PEG site, PEG site clean dry and intact Laboratory Results 02/06/19 12:33: POC Glucose 74 02/06/19 18:38: POC Glucose 110 02/07/19 00:11: POC Glucose 118 H 02/07/19 05:23: POC Glucose 98 02/07/19 06:00: WBC 7.7, RBC 2.57 L, Hgb 9.3 L, Hct 27.7 L, MCV 107.8 H, MCH 36.2 H, MCHC 33.6, RDW Std Deviation 58.0 H, RDW Coeff of Mohsen 15.2 H, Plt Count 121 L, MPV 10.4, Immature Gran % (Auto) 1.800 H, Neut % (Auto) 76.8 H, Lymph % (Auto) 14.9 L, [place] % (Auto) 5.8, Eos % (Auto) 0.6, Baso % (Auto) 0.1, Absolute Neuts (auto) 5.9, Absolute Lymphs (auto) 1.15, Nucleated RBC % 0 02/07/19 06:00: Sodium 137, Potassium 3.4 L, Chloride 97 L, Carbon Dioxide 37.0 H, Anion Gap 3 L, BUN 15, Creatinine 0.24 L, Estim Creat Clear Calc 323.22, Est GFR (MDRD) Af Amer 494, Est GFR (MDRD) Non-Af 409, BUN/Creatinine Ratio 61.2 H, Glucose 104, Calcium 7.7 L, Total Bilirubin 0.60, AST 30, ALT 21, Alkaline Phosphatase 43 L, Total Protein 5.1 L, Albumin 1.8 L, Globulin 3.3, Albumin/Globulin Ratio 0.5 L Current Medications Acetaminophen (Tylenol) 650 mg PO Q6H PRN PRN PRN Reason: Non-cardiac pain (-12/14) Last Admin: 01/25/19 15:13 Dose: 650 mg Documented by: Acetaminophen (Tylenol Liquid) 650 mg GT Q6H PRN PRN PRN Reason: TEMP>101 Al Hydroxide/Mg Hydroxide (Mylanta Ii) 15 - 30 ml PO Q4H PRN PRN PRN Reason: INDIGESTION Albuterol Sulfate (Ventolin Aerosols) 2.5 mg INHALATION Q2H PRN PRN PRN Reason: dyspnea, wheezing Last Admin: 01/26/19 09:26 Dose: 2.5 mg Documented by: Albuterol/Ipratropium (Duoneb) 3 ml INHALATION Q4HWA.RT [facility] Last Admin: 02/07/19 06:22 Dose: 3 ml Documented by: Atorvastatin Calcium (Lipitor) 80 mg GT QHS [facility] Last Admin: 02/06/19 22:33 Dose: 80 mg Documented by: Chlorhexidine Gluconate () 15 ml PO BID [facility] Last Admin: 02/06/19 22:31 Dose: 15 ml Documented by: Chlorhexidine Gluconate () 1 each TOPICAL DAILY [facility] Last Admin: 02/06/19 07:00 Dose: 1 each Documented by: Dextrose (D50w Syringe) 0 gm IV X1 PRN; Protocol PRN Reason: Hypoglycemia Divalproex Sodium (Depakote Er) 500 mg PO 0700,1300 [facility] Last Admin: 01/26/19 13:30 Dose: Not Given Documented by: Divalproex Sodium (Depakote Er) 1,000 mg PO QHS [facility] Last Admin: 01/25/19 21:41 Dose: 1,000 mg Documented by: Enoxaparin Sodium (Lovenox) 100 mg SC Q12@0600,1800 [facility] Last Admin: 02/05/19 05:26 Dose: 100 mg Documented by: Gabapentin (Neurontin) 300 mg GT TID [facility] Last Admin: 02/07/19 05:24 Dose: 300 mg Documented by: Glucagon () 1 mg IM .X1 PRN PRN Reason: Hypoglycemia Guaifenesin (Robitussin) 10 ml GT Q6H PRN Guaifenesin (Robitussin) 10 ml GT Q6H [facility] Last Admin: 02/07/19 05:24 Dose: 10 ml Documented by: Sodium Chloride () 250 mls @ 15 mls/hr IV .[id number] PRN PRN Reason: Saline Flush Last Infusion: 02/03/19 17:32 Dose: Infused Documented by: Enteral Nutritional Formula (Vital Af 1.2 Truong Liquid) 1,000 mls @ 60 mls/hr GT .[id number] [facility] Last Admin: 02/06/19 22:47 Dose: Not Given Documented by: Fentanyl () 100 mls @ 15 mls/hr IV UD [facility]; Protocol Last Admin: 02/07/19 07:12 Dose: 125 mcg/hr, 12.5 mls/hr Documented by: Propofol (Diprivan) 1,000 mg in 100 mls @ 17.694 mls/hr CONT INF .Q5H40M [facility]; Protocol Last Admin: 02/07/19 07:09 Dose: 30 mcg/kg/min, 17.5 mls/hr Documented by: Dextrose/Sodium Chloride () 1,000 mls @ 50 mls/hr IV .Q20H [facility] Last Infusion: 02/07/19 06:04 Dose: 50 mls/hr Documented by: Insulin Human Lispro (Humalog Kwikpen (Bkc)) 0 unit SC Q6 [facility]; Protocol Last Admin: 02/07/19 05:24 Dose: Not Given Documented by: Lansoprazole (Lansoprazole) 30 mg GT DAILY [facility] Magnesium Hydroxide (Milk Of Magnesia) 30 ml GT DAILY PRN PRN Reason: Constipation Last Admin: 01/30/19 09:33 Dose: 30 ml Documented by: Nicotine (Nicoderm Cq (Pbkc)) 21 mg TRANSDERM. DAILY [facility] Last Admin: 02/06/19 14:13 Dose: 21 mg Documented by: Nitroglycerin (Nitrostat) 0.4 mg SUBLINGUAL Q5M PRN PRN Reason: CARDIAC/CHEST PAIN Ondansetron HCl (Zofran) 4 mg IV Q8H PRN PRN PRN Reason: NAUSEA/VOMITING Polyethylene Glycol (Miralax) 17 gm GT BID [facility] Last Admin: 02/06/19 22:33 Dose: 17 gm Documented by: Prednisone () 20 mg GT DAILY@0800 [facility] Senna/Docusate Sodium (Senokot-S, Lila-Colace) 2 tablet GT BID [facility] Last Admin: 02/06/19 22:32 Dose: 2 tablet Documented by: Sodium Chloride () 10 - 40 ml IV UD PRN PRN Reason: SALINE FLUSH Last Admin: 02/06/19 10:28 Dose: 20 ml Documented by: Throat Lozenges (Cepacol Sore Throat Lozenge) 1 lozenge MUCOUS MEM Q2H PRN PRN PRN Reason: COUGH Valproic Acid (Depakene) 500 mg GT 4X/DAY [facility] Last Admin: 02/06/19 22:32 Dose: 500 mg Documented by: Medical Necessity - Tobacco Use Smoking Status: Current every day smoker Tobacco Use: Cigarettes Assessment/Plan All Active Problems CVA (cerebral vascular accident) (Acute) Slurred speech (Acute) COPD exacerbation (Acute) 63-year-old male with hypoxia on the ventilator, malnutrition, need for PEG tube status post PEG placement Okay to use PEG tube. Patient will be restarted on anticoagulation today per ICU Agnes Pike M.D. Pager: [phone] [facility] [address] [place] [address], [facility], [address] [place] [address] Office: [phone] Code Visit Inpatient E&M: 08066 Subs Hosp L1
--- NOTE | 2019-02-07 09:25 | CASEMGMT ---
Addendum entered by Florin Myers 02/07/19 09:42: Call received from Kiran, admission @ [facility]. Referral is received and they will review. Per Kiran, they have discharges at the end of this week, but they do not save beds for referrals, and do not take admissions on weekends. -Dr. Hook and POA/family updated on above. Original Note: RANDY DAVIDSON Note: participated in interdisciplinary rounds. CARMENCITA Wills, pt's daughter in law and family friend participated. At conclusion RANDY DAVIDSON spoke with pt/family re: LTAC choice. They prefer [facility] as first choice and [facility] second choice. Plan of care for trach on Tuesday, and dc to LTAC when medically ready, possibly as soon as Tuesday (if LTAC accepts weekend admissions). [facility] PH: FX: -Call to Kiran @ [facility]. Message left requesting referral review and fax was sent to facility. Tari BAÑUELOS RN ACM
[2019-02-07] MEDS: Chlorhexidine 15 ML PO ×2 (10:02→21:50)
[2019-02-07] MEDS: Dext 5%-0.45% NS 1,000 ML 50 ML IV (10:04)
[2019-02-07] MEDS: Bumetanide 1 MG/4 ML Vial IV (10:05)
[2019-02-07] MEDS: Polyethylene Glycol 3350 17 GM PACKET GT ×2 (10:08→21:41)
[2019-02-07] MEDS: Lansoprazole 15 MG Capsule.DR 30 MG GT (10:09)
[2019-02-07] MEDS: Senna/Docusate Sodium 1 Tablet 2 TABLET GT ×2 (10:10→21:41)
[2019-02-07] MEDS: predniSONE 20 MG Tablet GT (10:11)
[2019-02-07 12:10] LABS: Bedside Glucose 85 mg/dL (70-110)
[2019-02-07] MEDS: Vital AF 1.2 Cal Liquid 1,000 ML 30 ML GT (12:44)
[2019-02-07] MEDS: Propofol 10MG/Ml 1,000 MG/100 ML Bottle 17.7 MG CONT INF ×2 (12:45→17:05)
[2019-02-07] MEDS: Enoxaparin 100 MG/ML Syringe SC (15:46)
[2019-02-07 17:15] LABS: Bedside Glucose 98 mg/dL (70-110)
--- NOTE | 2019-02-07 19:10 | CON.PCM_ITS ---
Problem List (1) COPD exacerbation Status: Acute Reason for Consult Date of Consultation: 02/07/19 Reason for Consultation: evaluate for tracheotomy History of Present Illness: The patient is a 63 year old M with a previous history of COPD who presented initially to the emergency department with complaint of slurred speech. From review of the records work-up at that time apparently was negative for an acute stroke. He subsequent suffered an aspiration event which necessitated intubation and treatment for aspiration pneumonia. He has been recovering from this and review of his care notes show that his overall status continues to improve. He is currently intubated but is able to nod his head yes and no in response to simple questions and give a thumbs up sign when asked suggesting a reasonable level of responsiveness. I was asked for evaluation of tracheotomy at this time. Further information or specific information was able to be gleaned from the patient given his intubated state. I did ask if he was interes yoselin in a surgical procedure to place a breathing tube in his neck to which he shakes his head no. [] Past Medical History Past Medical History (Chronic Problems): Chronic Problems Chronic respiratory failure with hypoxia (Chronic) Tobacco use (Chronic) HTN (hypertension) (Chronic) HLD (hyperlipidemia) (Chronic) Ulcer of right lower extremity with fat layer exposed (Chronic) Lower extremity edema (Chronic) History of DVT (deep vein thrombosis) (Chronic) History of pulmonary embolism (Chronic) Seizure disorder (Chronic) COPD (chronic obstructive pulmonary disease) (Chronic) Allergies No Known Allergies Allergy (Verified 01/23/19 17:51) Home Medications: Ambulatory Orders Medication Instructions Recorded Gabapentin [Neurontin] 300 mg PO TID 05/28/16 Potassium Chloride [K-Dur] 10 meq PO TID 05/28/16 Nitroglycerin (INPATIENT USE) 0.4 mg SUBLINGUAL Q5M PRN 12/12/17 [Nitrostat] Furosemide [Lasix] 40 mg PO BREAKFAST 04/29/18 Divalproex Sodium [Depakote ER] 1,000 mg PO QHS 05/02/18 Divalproex Sodium [Depakote ER] 500 mg PO 0700,1300 05/02/18 Pravastatin Sodium 40 mg PO QHS 05/02/18 Acetaminophen [Tylenol Tablet] 650 mg PO Q6H PRN PRN tablet 05/10/18 Guaifenesin [Mucinex] 600 mg PO BID 07/15/18 Furosemide [Lasix] 20 mg PO LUNCH 01/04/19 Mometasone/Formoterol [Dulera 200 1 puff IH BID 01/04/19 Mcg/5 Mcg Inhaler] Warfarin [Coumadin] 5 mg PO SUTUWETHSA 01/04/19 Albuterol Inhaler [Ventolin Hfa] 2 puff INHALATION Q4H PRN PRN #0 01/09/19 Ipratropium/Albuterol Sulfate 3 ml INHALATION Q4H PRN PRN #30 01/09/19 [Duoneb] ampul.neb Cholecalciferol (Vitamin D3) 50,000 unit PO MO 01/23/19 [Vitamin D] Warfarin Sodium 2.5 mg PO MOFR 01/23/19 Surgical History: appendectomy, - - Liver biopsy. Psychiatric History: No pertinent psych hx Lives: With Family - Patient lives with his fianc?e as well as her family. Smoking Status: Current every day smoker Tobacco Use: Cigarettes Alcohol: None Drugs: None - *Family History Maternal History Items: COPD, Heart Disease Paternal History Items: Unknown - Does not know his paternal medical history. Review of Systems Unable to obtain accurate/complete ROS d/t: Patient intubated, he is able to confirm that he is currently comfortable Patient Problems: Active and Suspected Problems CVA (cerebral vascular accident) (Acute) Slurred speech (Acute) - Physical Exam Vitals/I&O's: Vital Signs Temp Pulse Resp BP Pulse Ox 98.2 F 65 12 85/51 L 93 02/07/19 18:00 02/07/19 18:30 02/07/19 18:00 02/07/19 18:00 02/07/19 18:00 Oxygen Flow Rate (L/min) 4 Oxygen Delivery Method Mechanical Ventilator Weight: 98.3 kg Body Mass Index (BMI) 31.9 Intake and Output for Last 24 Hours 02/05/19 02/06/19 02/07/19 23:59 23:59 23:59 Intake Total 1561.49 / 1982.49 1986.25 / 2514.17 2222.36 / 2222.36 Output Total 1450 / 1700 625 / 950 2075 / 2075 Balance 111.49 / 282.49 1361.25 / 1564.17 147.36 / 147.36 General: Cooperative, No apparent distress HEENT: Atraumatic, PERRLA, EOMI, Normocephalic Oral: Moist Mucosa, - - Endotracheal tube in place secured Neck: Supple, Trachea Midline Lungs: Normal air movement, No rhonchi, No wheeze Cardiovascular: Regular rate, Regular Rhythm Abdomen: Non Tender, Non-Distended Extremities: Edema Psych/Mental Status: - - She is awake and able to nod yes and no in response to questions with contextually appropriate responses Laboratory Results 02/07/19 00:11: POC Glucose 118 H 02/07/19 05:23: POC Glucose 98 02/07/19 06:00: WBC 7.7, RBC 2.57 L, Hgb 9.3 L, Hct 27.7 L, MCV 107.8 H, MCH 36.2 H, MCHC 33.6, RDW Std Deviation 58.0 H, RDW Coeff of Mohsen 15.2 H, Plt Count 121 L, MPV 10.4, Immature Gran % (Auto) 1.800 H, Neut % (Auto) 76.8 H, Lymph % (Auto) 14.9 L, [place] % (Auto) 5.8, Eos % (Auto) 0.6, Baso % (Auto) 0.1, Absolute Neuts (auto) 5.9, Absolute Lymphs (auto) 1.15, Nucleated RBC % 0 02/07/19 06:00: Sodium 137, Potassium 3.4 L, Chloride 97 L, Carbon Dioxide 37.0 H, Anion Gap 3 L, BUN 15, Creatinine 0.24 L, Estim Creat Clear Calc 323.22, Est GFR (MDRD) Af Amer 494, Est GFR (MDRD) Non-Af 409, BUN/Creatinine Ratio 61.2 H, Glucose 104, Calcium 7.7 L, Total Bilirubin 0.60, AST 30, ALT 21, Alkaline Phosphatase 43 L, Total Protein 5.1 L, Albumin 1.8 L, Globulin 3.3, Albumin/Globulin Ratio 0.5 L 02/07/19 12:05: POC Glucose 85 02/07/19 17:09: POC Glucose 98 Current Medications Acetaminophen (Tylenol) 650 mg PO Q6H PRN PRN PRN Reason: Non-cardiac pain (4-12/14) Last Admin: 01/25/19 15:13 Dose: 650 mg Documented by: Acetaminophen (Tylenol Liquid) 650 mg GT Q6H PRN PRN PRN Reason: TEMP>101 Al Hydroxide/Mg Hydroxide (Mylanta Ii) 15 - 30 ml PO Q4H PRN PRN PRN Reason: INDIGESTION Albuterol Sulfate (Ventolin Aerosols) 2.5 mg INHALATION Q2H PRN PRN PRN Reason: dyspnea, wheezing Last Admin: 01/26/19 09:26 Dose: 2.5 mg Documented by: Albuterol/Ipratropium (Duoneb) 3 ml INHALATION Q4HWA.RT [facility] Last Admin: 02/07/19 18:30 Dose: 3 ml Documented by: Atorvastatin Calcium (Lipitor) 80 mg GT QHS [facility] Last Admin: 02/06/19 22:33 Dose: 80 mg Documented by: Chlorhexidine Gluconate () 15 ml PO BID [facility] Last Admin: 02/07/19 10:02 Dose: 15 ml Documented by: Chlorhexidine Gluconate () 1 each TOPICAL DAILY [facility] Last Admin: 02/07/19 10:00 Dose: Not Given Documented by: Dextrose (D50w Syringe) 0 gm IV X1 PRN; Protocol PRN Reason: Hypoglycemia Divalproex Sodium (Depakote Er) 500 mg PO 0700,1300 [facility] Last Admin: 01/26/19 13:30 Dose: Not Given Documented by: Divalproex Sodium (Depakote Er) 1,000 mg PO QHS [facility] Last Admin: 01/25/19 21:41 Dose: 1,000 mg Documented by: Enoxaparin Sodium (Lovenox) 100 mg SC Q12@0600,1800 [facility] Gabapentin (Neurontin) 300 mg GT TID [facility] Last Admin: 02/07/19 12:52 Dose: 300 mg Documented by: Glucagon () 1 mg IM .X1 PRN PRN Reason: Hypoglycemia Guaifenesin (Robitussin) 10 ml GT Q6H PRN Guaifenesin (Robitussin) 10 ml GT Q6H [facility] Last Admin: 02/07/19 12:50 Dose: 10 ml Documented by: Sodium Chloride () 250 mls @ 15 mls/hr IV .[id number] PRN PRN Reason: Saline Flush Last Infusion: 02/03/19 17:32 Dose: Infused Documented by: Enteral Nutritional Formula (Vital Af 1.2 Truong Liquid) 1,000 mls @ 60 mls/hr GT .[id number] [facility] Last Admin: 02/07/19 12:44 Dose: 30 mls/hr Documented by: Fentanyl () 100 mls @ 15 mls/hr IV UD [facility]; Protocol Last Titration: 02/07/19 17:00 Dose: 125 mcg/hr, 12.5 mls/hr Documented by: Propofol (Diprivan) 1,000 mg in 100 mls @ 17.694 mls/hr CONT INF .Q5H40M [facility]; Protocol Last Admin: 02/07/19 17:05 Dose: 30 mcg/kg/min, 17.7 mls/hr Documented by: Insulin Human Lispro (Humalog Kwikpen (Bkc)) 0 unit SC Q6 [facility]; Protocol Last Admin: 02/07/19 17:19 Dose: Not Given Documented by: Lansoprazole (Lansoprazole) 30 mg GT DAILY [facility] Last Admin: 02/07/19 10:09 Dose: 30 mg Documented by: Magnesium Hydroxide (Milk Of Magnesia) 30 ml GT DAILY PRN PRN Reason: Constipation Last Admin: 01/30/19 09:33 Dose: 30 ml Documented by: Nicotine (Nicoderm Cq (Pbkc)) 21 mg TRANSDERM. DAILY [facility] Last Admin: 02/07/19 10:07 Dose: 21 mg Documented by: Nitroglycerin (Nitrostat) 0.4 mg SUBLINGUAL Q5M PRN PRN Reason: CARDIAC/CHEST PAIN Ondansetron HCl (Zofran) 4 mg IV Q8H PRN PRN PRN Reason: NAUSEA/VOMITING Polyethylene Glycol (Miralax) 17 gm GT BID [facility] Last Admin: 02/07/19 10:08 Dose: 17 gm Documented by: Prednisone () 20 mg GT DAILY@0800 [facility] Last Admin: 02/07/19 10:11 Dose: 20 mg Documented by: Senna/Docusate Sodium (Senokot-S, Lila-Colace) 2 tablet GT BID [facility] Last Admin: 02/07/19 10:10 Dose: 2 tablet Documented by: Sodium Chloride () 10 - 40 ml IV UD PRN PRN Reason: SALINE FLUSH Last Admin: 02/06/19 10:28 Dose: 20 ml Documented by: Throat Lozenges (Cepacol Sore Throat Lozenge) 1 lozenge MUCOUS MEM Q2H PRN PRN PRN Reason: COUGH Valproic Acid (Depakene) 500 mg GT 4X/DAY [facility] Last Admin: 02/07/19 17:19 Dose: 500 mg Documented by: Assessment/Plan All Active Problems CVA (cerebral vascular accident) (Acute) Slurred speech (Acute) COPD exacerbation (Acute) Mr. Hopper is a 63-year-old male who suffered an acute aspiration event and subsequently pneumonia requiring intubation. He has had a PEG tube placed for nutrition. I did talk with him about the proposed surgical procedure of tracheotomy. He indicates he is not interested at this time in the surgical procedure. I feel that given his documented recovery and the acute nature of this event with anticipated ongoing improvement that it would be more reasonable for a trial of extubation in the hopes that he would satisfactory maintain his airway in the setting of reduced risk of aspiration with PEG feedings. As tracheotomy is a considerable airway risk and and of itself the optimal disposition of any patient is extubation and maintenance of their own airway as this circumvents the risk of tracheal stenosis, wound infection, subcutaneous emphysema, erosion of the trachea and involvement of the great vessels and fistula formation, with an annual mortality of patients with tracheotomy at 30%. Potential for extubation and avoidance of these potential risks as well as his indication that he is not willing to consider the surgical procedure at this time, I would advise plan for extubation attempts prior to reconsideration of surgical airway placement. If his condition or desires should change in this regard I would be happy to reevaluate him for tracheotomy in the future.
[2019-02-07] MEDS: Atorvastatin Calcium 80 MG Tablet GT (21:41)
[2019-02-07] MEDS: Propofol 10MG/Ml 1,000 MG/100 ML Bottle 14.7 MG CONT INF (23:49)
[2019-02-08] VITALS (37 sets, daily range): BP systolic 84–119; BP diastolic 49–82; PULSE 61–90; RESP 12–29; TEMP 36.9–38.8; O2SAT 89–96; BMI 31.9
[2019-02-08] MEDS: guaiFENesin 10 ML UDC (200MG/10ML) GT ×4 (00:58→17:51)
[2019-02-08] MEDS: fentaNYL drip 100 ML 10 MCG IV (01:20)
[2019-02-08 01:56] LABS: Bedside Glucose 87 mg/dL (70-110)
[2019-02-08] MEDS: Ipratropium/Albuterol Sulfate 3 ML AMPUL.NEB INHALATION ×4 (02:58→15:02)
[2019-02-08 04:47] LABS: Absolute Lymphocyte Count 1.42 X10^3/uL (0.83-4.51); Absolute Neutrophil Count 5.4 X10^3/uL (2.0-7.7); Basophil# 0.01 X10^3/uL; Basophil% 0.1 % (0-1); Eosinophil# 0.03 X10^3/uL; Eosinophils% 0.4 % (0-5); Hematocrit 30.9 % (40-54); Hemoglobin 10.5 g/dL (13.0-16.5); Lymphocyte # 1.42 X10^3/ul (4.0); Lymphocyte % 19.1 % (19-41); Mean Corpuscular Hgb 35.7 pg (27.0-32.0); Mean Corpuscular Volume 105.1 fL (80-94); Mean Platelet Vol. 10.4 fl (6.2-12.0); Monocyte# 0.51 X10^3/uL; Monocyte% 6.8 % (0-10); NRBC Flagged by Analyzer 0 % (0-5); Neutrophil # 5.38 X10^3/uL (2.7-7.7); Neutrophil % 72.3 % (47-70); Platelet Count 128 K/mm3 (150-450); RBC Distribution Width CV 14.9 % (11.6-14.6); RBC Distribution Width SD 55.8 fl (35.1-43.9); Red Blood Count 2.94 M/mm3 (4.6-6.2); White Blood Count 7.5 K/mm3 (4.4-11.0)
[2019-02-08 05:01] LABS: ALB/GLOB Ratio 0.5 RATIO (0.9-2.4); AST(SGOT) 32 U/L (15-37); Alanine Aminotransfer ALT/SGPT 21 U/L (16-61); Albumin, Serum 1.9 g/dL (3.2-5.0); Alkaline Phosphatase 56 U/L (45-117); Anion Gap 2 (5-15); BUN 14 mg/dL (7-18); BUN/Creat Ratio 52.8 RATIO (10-20); Calcium,Total 8.1 mg/dL (8.5-10.1); Chloride 95 mmol/L (98-107); Creatinine, Serum 0.26 mg/dL (0.70-1.30); EST Glomerular Filtration Rate 373 mL/min (>60); Est Glom Filt Rate - Afr Amer 452 mL/min (>60); Estimated Creatinine Clearance 298.36 ml/min; Glucose 91 mg/dL (74-106); Potassium 3.4 mmol/L (3.5-5.1); Protein, Total 5.9 g/dL (6.4-8.2); Sodium Level 135 mmol/L (136-145)
[2019-02-08] MEDS: Propofol 10MG/Ml 1,000 MG/100 ML Bottle 14.7 MG CONT INF (06:01)
[2019-02-08] MEDS: Gabapentin 300 MG Capsule GT ×3 (06:03→20:36)
[2019-02-08] MEDS: Enoxaparin 100 MG/ML Syringe SC ×2 (06:03→17:52)
[2019-02-08 06:21] LABS: Bedside Glucose 71 mg/dL (70-110)
--- NOTE | 2019-02-08 06:56 | PCM.PN.INT ---
Subjective: The patient was seen and examined at the bedside this morning. Events from the last 24 hours have been reviewed. The patient is currently febrile with a T-max over the last 12 hours noted to be 100.5 ?F. The patient continues to have issues with mucus plugging. His FiO2 requirement did have to be increased to 60% overnight. The patient has been intubated now for 2 weeks. Accordingly, consultation was placed to ENT for evaluation of tracheostomy placement. However, the provider who evaluated the patient did not feel that he was a candidate for tracheostomy placement and instead proposed a trial of extubation, despite the fact that the patient continues to have issues with mucus plugging and an FiO2 requirement in excess of 60%. Objective: The patient's most recent lab work, culture data and imaging studies have all been personally reviewed. Sputum culture dated January 26 was positive for both Haemophilus influenza and Streptococcus pneumoniae. General: - - Remains intubated, sedated and mechanically ventilated. HEENT: Atraumatic, PERRLA, Normocephalic Oral: No Gingival or Mucosal Lesions/ Ulcerations, - - Endotracheal tube remains in place Neck: Supple, No Nodes, Trachea Midline Lungs: No rhonchi, No wheeze, No rales, Diminished Cardiovascular: Regular rate, Regular Rhythm, Normal S1, Normal S2, No murmurs Abdomen: Bowel Sounds Present, Soft, Non Tender, - - + PEG tube Extremities: No cyanosis, Clubbing, Edema Skin: No breakdown Musculoskeletal: No Tenderness to Palpation of Joints or Extremities Lymphatic: No Cervical, Supraclavicular, or Inguinal Adenopathy Neurological: - - No focal neurological deficits. Arousable to verbal stimulation. Vital Signs Temp Pulse Resp BP Pulse Ox 100.5 F H 77 12 112/77 93 02/08/19 06:00 02/08/19 06:00 02/08/19 06:00 02/08/19 06:00 02/08/19 06:00 Oxygen Flow Rate (L/min) 4 Oxygen Delivery Method Mechanical Ventilator Weight: 214 lb 4.629 oz Body Mass Index (BMI) 31.9 Intake and Output for Last 24 Hours 02/06/19 02/07/19 02/08/19 23:59 23:59 23:59 Intake Total 1986.25 / 2514.17 2417.36 / 2981.36 1140.52 / 1140.52 Output Total 625 / 950 2075 / 2375 500 / 500 Balance 1361.25 / 1564.17 342.36 / 606.36 640.52 / 640.52 Labs (Last 48 Hours) 02/06/19 02/06/19 02/07/19 12:33 18:38 00:11 WBC RBC Hgb Hct MCV MCH MCHC RDW Std Deviation RDW Coeff of Mohsen Plt Count MPV Immature Gran % (Auto) Neut % (Auto) Lymph % (Auto) [place] % (Auto) Eos % (Auto) Baso % (Auto) Absolute Neuts (auto) Absolute Lymphs (auto) Nucleated RBC % Sodium Potassium Chloride Carbon Dioxide Anion Gap BUN Creatinine Estim Creat Clear Calc Est GFR (MDRD) Af Amer Est GFR (MDRD) Non-Af BUN/Creatinine Ratio Glucose Calcium Total Bilirubin AST ALT Alkaline Phosphatase Total Protein Albumin Globulin Albumin/Globulin Ratio POC Glucose 74 110 118 H 02/07/19 02/07/19 02/07/19 05:23 06:00 06:00 WBC 7.7 RBC 2.57 L Hgb 9.3 L Hct 27.7 L MCV 107.8 H MCH 36.2 H MCHC 33.6 RDW Std Deviation 58.0 H RDW Coeff of Mohsen 15.2 H Plt Count 121 L MPV 10.4 Immature Gran % (Auto) 1.800 H Neut % (Auto) 76.8 H Lymph % (Auto) 14.9 L Frederick % (Auto) 5.8 Eos % (Auto) 0.6 Baso % (Auto) 0.1 Absolute Neuts (auto) 5.9 Absolute Lymphs (auto) 1.15 Nucleated RBC % 0 Sodium 137 Potassium 3.4 L Chloride 97 L Carbon Dioxide 37.0 H Anion Gap 3 L BUN 15 Creatinine 0.24 L Estim Creat Clear Calc 323.22 Est GFR (MDRD) Af Amer 494 Est GFR (MDRD) Non-Af 409 BUN/Creatinine Ratio 61.2 H Glucose 104 Calcium 7.7 L Total Bilirubin 0.60 AST 30 ALT 21 Alkaline Phosphatase 43 L Total Protein 5.1 L Albumin 1.8 L Globulin 3.3 Albumin/Globulin Ratio 0.5 L POC Glucose 98 02/07/19 02/07/19 02/08/19 12:05 17:09 00:57 WBC RBC Hgb Hct MCV MCH MCHC RDW Std Deviation RDW Coeff of Mohsen Plt Count MPV Immature Gran % (Auto) Neut % (Auto) Lymph % (Auto) Frederick % (Auto) Eos % (Auto) Baso % (Auto) Absolute Neuts (auto) Absolute Lymphs (auto) Nucleated RBC % Sodium Potassium Chloride Carbon Dioxide Anion Gap BUN Creatinine Estim Creat Clear Calc Est GFR (MDRD) Af Amer Est GFR (MDRD) Non-Af BUN/Creatinine Ratio Glucose Calcium Total Bilirubin AST ALT Alkaline Phosphatase Total Protein Albumin Globulin Albumin/Globulin Ratio POC Glucose 85 98 87 02/08/19 02/08/19 02/08/19 04:35 04:35 06:12 WBC 7.5 RBC 2.94 L Hgb 10.5 L Hct 30.9 L MCV 105.1 H MCH 35.7 H MCHC 34.0 RDW Std Deviation 55.8 H RDW Coeff of Mohsen 14.9 H Plt Count 128 L MPV 10.4 Immature Gran % (Auto) 1.300 H Neut % (Auto) 72.3 H Lymph % (Auto) 19.1 Frederick % (Auto) 6.8 Eos % (Auto) 0.4 Baso % (Auto) 0.1 Absolute Neuts (auto) 5.4 Absolute Lymphs (auto) 1.42 Nucleated RBC % 0 Sodium 135 L Potassium 3.4 L Chloride 95 L Carbon Dioxide 38.0 H Anion Gap 2 L BUN 14 Creatinine 0.26 L Estim Creat Clear Calc 298.36 Est GFR (MDRD) Af Amer 452 Est GFR (MDRD) Non-Af 373 BUN/Creatinine Ratio 52.8 H Glucose 91 Calcium 8.1 L Total Bilirubin 0.60 AST 32 ALT 21 Alkaline Phosphatase 56 Total Protein 5.9 L Albumin 1.9 L Globulin 4.0 Albumin/Globulin Ratio 0.5 L POC Glucose 71 Clinical Impression(s) from Imaging Studies Brain CT 01/23/19 18:35 IMPRESSION: Chronic involutional changes of the brain. Electronically Signed: Ford Craig MD at 19:28 EST , Service support , Chest X-Ray 01/23/19 18:37 IMPRESSION: Calcified plaques of the thoracic aorta. Multiple old bilateral rib fractures. No acute cardiopulmonary disease process is seen. Electronically Signed: Ford Craig MD at 18:56 EST , Service support , Head MRA 01/24/19 12:20 IMPRESSION: Normal MRA of the head. No demonstrated aneurysm, dissection, stenosis, or occlusion. Electronically Signed: Renetta Diaz MD at 16:09 EST Tel , Service support , Neck MRA 01/24/19 12:20 IMPRESSION: Normal bilateral cervical carotid and vertebral arteries. Electronically Signed: Renetta Diaz MD at 16:15 EST Tel , Service support , Brain MRI 01/24/19 12:30 IMPRESSION: No acute infarct or intracranial hemorrhage. Mild involutional changes of the brain, as described above. Electronically Signed: Andrwe Coleman, at 15:29 EST Tel , Service support , Chest X-Ray 01/25/19 09:45 IMPRESSION: Hazy infiltrates at the right lung base may represent atelectasis or pneumonia in the proper clinical setting. Electronically Signed: Andrew Coleman at 10:46 EST Tel , Service support , Chest X-Ray 01/26/19 09:27 IMPRESSION: Persistent hazy infiltrates at the right lung base may represent aspiration pneumonia. Small right pleural effusion. Electronically Signed: Andrew Coleman at 10:01 EST Tel , Service support , Chest X-Ray 01/26/19 10:05 IMPRESSION: ET tube as described above. Persistent hazy infiltrates at the right lung base may represent aspiration pneumonia. Electronically Signed: Andrew Coleman, at 11:31 EST Tel , Service support , KUB X-Ray 01/26/19 10:05 IMPRESSION: Enteric tube overlies the stomach. Electronically Signed: Andrew Coleman, at 11:35 EST Tel , Service support , KUB X-Ray 01/26/19 10:46 IMPRESSION: Enteric tube overlies the stomach. Electronically Signed: Andrew Coleman, at 11:41 EST Tel , Service support , Chest X-Ray 01/27/19 06:29 IMPRESSION: Bibasilar pulmonary opacities with mild decrease on the right and mild increase on the left. at 0744 Reported and signed by: Vidhya Tierney MD Electronically Signed: Vidhya Tierney MD at 7:44 EST Tel , Service support , Chest CTA 01/28/19 00:00 IMPRESSION: 1. Small right middle lobe segmental pulmonary emboli. 2. Bilateral lower lobe airspace consolidations and possible atelectasis suggesting pneumonia. 3. 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 4. No CTA demonstrated arterial dissection. N.B. : The above information has been verbally conveyed by Maddie Jeffers MD to RANDY Galvez, on 01/28/2019 09:50:52 (ET). Electronically Signed: Maddie Jeffers MD at 9:55 EST , Service support , ADDENDUM: 01/28/19 1002 IMPRESSION: 1. Small right middle lobe segmental pulmonary emboli. 2. Bilateral lower lobe airspace consolidations and possible atelectasis suggesting pneumonia. 3. 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 4. No CTA demonstrated arterial dissection. N.B. : The above information has been verbally conveyed by Maddie Jeffers MD to RANDY Galvez, on 01/28/2019 09:50:52 (ET). Electronically Signed: Maddie Jeffers MD at 9:55 EST , Service support , KUB X-Ray 02/01/19 09:29 IMPRESSION: Limited study of the abdomen and pelvis which is grossly negative. Electronically Signed: Wesley Mayer at 10:40 EST Tel , Service support , Chest X-Ray 02/04/19 03:37 IMPRESSION: Right lower lobe consolidation suggestive of infiltrate and/or atelectasis. Lines and tubes as described above. Electronically Signed: Elizabet Aguilar MD at 3:57 EST , Service support , Medical Necessity - Tobacco Use Smoking Status: Current every day smoker Tobacco Use: Cigarettes Assessment/Plan All Active Problems CVA (cerebral vascular accident) (Acute) Slurred speech (Acute) COPD exacerbation (Acute) RECOMMENDATIONS: 1. Obtain blood, urine and sputum cultures. 2. If fevers persist, will start broad-spectrum antimicrobials. 3. Electrolyte repletion. 4. Administer IV Lasix x1. 5. Will obtain second opinion ENT consultation with regards to tracheostomy placement. 6. Continue Lovenox until timing for surgical procedure is identified. 7. Continue bronchodilators and steroids. 8. Wean FiO2 as tolerated. 9. Continue tube feeds. IMPRESSIONS: 1. Acute on chronic hypoxemic respiratory failure secondary to aspiration pneumonia The patient was emergently transferred to the ICU on the morning of January 26, where he did require intubation due to impending respiratory failure following an aspiration event. The patient did complete a full treatment course of antimicrobials to address the Haemophilus influenza and streptococcal pneumonia isolated from his sputum culture. However, the patient continues to require a high amount of ventilatory support and has frequent issues with mucus plugging. He has been unable to complete a spontaneous breathing trial without failure. The patient has been on the ventilator now for 14 days. Consultation was placed yesterday to ENT to evaluate the patient for tracheostomy. In light of the opinion rendered by the initial ENT provider, a consultation has been placed to [facility] for a second opinion. In the interim, we will plan to continue aggressive bronchopulmonary hygiene, scheduled bronchodilators and steroids. FiO2 will be weaned to maintain an oxygen saturation at or above 90%. PEG tube is already in place and the patient is tolerating tube feeds without issue. IV Lasix will also be administered today. 2. Septic shock secondary to presumed aspiration pneumonia As noted above, the patient completed a full treatment course of antibiotics for his underlying pneumonia. His blood pressures have remained stable. However, the patient did spike a fever this morning. Therefore, repeat blood, urine and sputum cultures will be obtained. If the patient's fever continues to progress, empiric antimicrobials once again be restarted. 3. COPD with exacerbation Inciting etiology appears to be aspiration event. Continue current supportive measures as noted above along with bronchodilators and steroids. Wean oxygen as tolerated. 4. Pulmonary emboli Identified on CTA chest early in the admission. The patient has been on treatment dose Lovenox. This will need to be held in preparation for possible tracheostomy. Will need to confer with the ENT provider about the timing for the procedure. 5. Slurred speech Neurology is currently following. Work-up has been unrevealing to date. 6. History of venous thrombi embolic disease/hypertension/hyperlipidemia/seizure disorder/continuous tobacco dependency Complicates care, management, recovery and prognosis. Continue antiepileptics. TIME: 37 minutes of critical care time, independent of procedures, was spent addressing the patient's acute on chronic hypoxemic respiratory failure, septic shock secondary to aspiration pneumonia, COPD with exacerbation, pulmonary emboli, review of all data and collaboration with the care team. ([id number]) Code Visit 9xxxx: [id number] Critical care first hour
--- NOTE | 2019-02-08 07:10 | PN_ITS ---
Patient Problems: Active and Suspected Problems CVA (cerebral vascular accident) (Acute) Slurred speech (Acute) Subjective: Patient with escalation of temperature overnight, up now to 101.4, pending urine, blood cultures per ICU direction. Patient evaluated per ENT day prior for consideration of trach, recommended continued monitoring but given concern and inability for successful SBT discussed with ICU staff and decision to obtain second opinion, awaiting Dr. Urrutia evaluation of patient. Patient administered x1 dose torsemide the day prior with lessened edema and weight decreased to 214 pound. Patient with otherwise no evidence of chills, nausea, emesis, chest pain or dyspnea but currently sedation increased as per discussion with staff mine warfare officer complaining of abdominal discomfort at his PEG insertion site. Objective: Physical Examination: General: Intubated, sedated, no obvious distress, laying in the ICU bed, more sedated currently, not awakening. Skin: normal color, turgor, no icterus, cyanosis, lila-PEG region with no erythema, well appearing. HEENT: AT/NC, unable to assess EOM, PERRLA, mildly dry MM, intubated, sedated. Lungs: Remains BL decreased, > bases, intubated, sedated, symmetric rise, no current obvious rales, ronchi or wheezing. Heart: Regular rate and rhythm; no gallop, rub audible. Abdomen: soft, obese, NTTP, ND, normal BS. Extremities: no cyanosis, clubbing, mild BL LE ankle and hand, distal forearm edema improved from day prior. Neurological: Intubated, sedated, no obvious distress, more sedate today, not able to follow any commands, laying in the ICU bed; cognitive function not baseline intact; pupils equally reactive to light and accomodation; cranial nerves unable to be assessed given sedated status, strength accordingly severely globally decreased. Psychiatric: affect appears sedate, no acute evidence of depressive or anxiety feelings. Vitals/I&O's: Vital Signs Temp Pulse Resp BP Pulse Ox 100.5 F H 77 12 112/77 93 02/08/19 06:00 02/08/19 06:00 02/08/19 06:00 02/08/19 06:00 02/08/19 06:00 Oxygen Flow Rate (L/min) 4 Oxygen Delivery Method Mechanical Ventilator Weight: 214 lb 4.629 oz Body Mass Index (BMI) 31.9 Intake and Output for Last 24 Hours 02/06/19 02/07/19 02/08/19 23:59 23:59 23:59 Intake Total 1986.25 / 2514.17 2417.36 / 2981.36 1140.52 / 1140.52 Output Total 625 / 950 2075 / 2375 500 / 500 Balance 1361.25 / 1564.17 342.36 / 606.36 640.52 / 640.52 Laboratory Results 02/07/19 12:05: POC Glucose 85 02/07/19 17:09: POC Glucose 98 02/08/19 00:57: POC Glucose 87 02/08/19 04:35: WBC 7.5, RBC 2.94 L, Hgb 10.5 L, Hct 30.9 L, MCV 105.1 H, MCH 35.7 H, MCHC 34.0, RDW Std Deviation 55.8 H, RDW Coeff of Mohsen 14.9 H, Plt Count 128 L, MPV 10.4, Immature Gran % (Auto) 1.300 H, Neut % (Auto) 72.3 H, Lymph % (Auto) 19.1, [place] % (Auto) 6.8, Eos % (Auto) 0.4, Baso % (Auto) 0.1, Absolute Neuts (auto) 5.4, Absolute Lymphs (auto) 1.42, Nucleated RBC % 0 02/08/19 04:35: Sodium 135 L, Potassium 3.4 L, Chloride 95 L, Carbon Dioxide 38.0 H, Anion Gap 2 L, BUN 14, Creatinine 0.26 L, Estim Creat Clear Calc 298.36, Est GFR (MDRD) Af Amer 452, Est GFR (MDRD) Non-Af 373, BUN/Creatinine Ratio 52.8 H, Glucose 91, Calcium 8.1 L, Total Bilirubin 0.60, AST 32, ALT 21, Alkaline Phosphatase 56, Total Protein 5.9 L, Albumin 1.9 L, Globulin 4.0, Albumin/Globulin Ratio 0.5 L 02/08/19 06:12: POC Glucose 71 Current Medications Acetaminophen (Tylenol) 650 mg PO Q6H PRN PRN PRN Reason: Non-cardiac pain (-12/14) Last Admin: 01/25/19 15:13 Dose: 650 mg Documented by: Acetaminophen (Tylenol Liquid) 650 mg GT Q6H PRN PRN PRN Reason: TEMP>101 Al Hydroxide/Mg Hydroxide (Mylanta Ii) 15 - 30 ml PO Q4H PRN PRN PRN Reason: INDIGESTION Albuterol Sulfate (Ventolin Aerosols) 2.5 mg INHALATION Q2H PRN PRN PRN Reason: dyspnea, wheezing Last Admin: 01/26/19 09:26 Dose: 2.5 mg Documented by: Albuterol/Ipratropium (Duoneb) 3 ml INHALATION Q4HWA.RT [facility] Last Admin: 02/08/19 06:22 Dose: 3 ml Documented by: Atorvastatin Calcium (Lipitor) 80 mg GT QHS [facility] Last Admin: 02/07/19 21:41 Dose: 80 mg Documented by: Chlorhexidine Gluconate () 15 ml PO BID [facility] Last Admin: 02/07/19 21:50 Dose: 15 ml Documented by: Chlorhexidine Gluconate () 1 each TOPICAL DAILY [facility] Last Admin: 02/07/19 10:00 Dose: Not Given Documented by: Dextrose (D50w Syringe) 0 gm IV X1 PRN; Protocol PRN Reason: Hypoglycemia Divalproex Sodium (Depakote Er) 500 mg PO 0700,1300 [facility] Last Admin: 01/26/19 13:30 Dose: Not Given Documented by: Divalproex Sodium (Depakote Er) 1,000 mg PO QHS [facility] Last Admin: 01/25/19 21:41 Dose: 1,000 mg Documented by: Enoxaparin Sodium (Lovenox) 100 mg SC Q12@0600,1800 [facility] Last Admin: 02/08/19 06:03 Dose: 100 mg Documented by: Gabapentin (Neurontin) 300 mg GT TID [facility] Last Admin: 02/08/19 06:03 Dose: 300 mg Documented by: Glucagon () 1 mg IM .X1 PRN PRN Reason: Hypoglycemia Guaifenesin (Robitussin) 10 ml GT Q6H PRN Guaifenesin (Robitussin) 10 ml GT Q6H [facility] Last Admin: 02/08/19 06:03 Dose: 10 ml Documented by: Sodium Chloride () 250 mls @ 15 mls/hr IV .[id number] PRN PRN Reason: Saline Flush Last Infusion: 02/03/19 17:32 Dose: Infused Documented by: Enteral Nutritional Formula (Vital Af 1.2 Truong Liquid) 1,000 mls @ 60 mls/hr GT .[id number] [facility] Last Admin: 02/08/19 05:05 Dose: Not Given Documented by: Fentanyl () 100 mls @ 15 mls/hr IV UD [facility]; Protocol Last Titration: 02/08/19 06:00 Dose: 125 mcg/hr, 12.5 mls/hr Documented by: Propofol (Diprivan) 1,000 mg in 100 mls @ 17.496 mls/hr CONT INF .Q5H43M [facility]; Protocol Last Admin: 02/08/19 06:01 Dose: 25 mcg/kg/min, 14.7 mls/hr Documented by: Insulin Human Lispro (Humalog Kwikpen (Bkc)) 0 unit SC Q6 [facility]; Protocol Last Admin: 02/08/19 06:15 Dose: Not Given Documented by: Lansoprazole (Lansoprazole) 30 mg GT DAILY [facility] Last Admin: 02/07/19 10:09 Dose: 30 mg Documented by: Magnesium Hydroxide (Milk Of Magnesia) 30 ml GT DAILY PRN PRN Reason: Constipation Last Admin: 01/30/19 09:33 Dose: 30 ml Documented by: Nicotine (Nicoderm Cq (Pbkc)) 21 mg TRANSDERM. DAILY [facility] Last Admin: 02/07/19 10:07 Dose: 21 mg Documented by: Nitroglycerin (Nitrostat) 0.4 mg SUBLINGUAL Q5M PRN PRN Reason: CARDIAC/CHEST PAIN Ondansetron HCl (Zofran) 4 mg IV Q8H PRN PRN PRN Reason: NAUSEA/VOMITING Polyethylene Glycol (Miralax) 17 gm GT BID [facility] Last Admin: 02/07/19 21:41 Dose: 17 gm Documented by: Prednisone () 20 mg GT DAILY@0800 [facility] Last Admin: 02/07/19 10:11 Dose: 20 mg Documented by: Senna/Docusate Sodium (Senokot-S, Lila-Colace) 2 tablet GT BID [facility] Last Admin: 02/07/19 21:41 Dose: 2 tablet Documented by: Sodium Chloride () 10 - 40 ml IV UD PRN PRN Reason: SALINE FLUSH Last Admin: 02/06/19 10:28 Dose: 20 ml Documented by: Throat Lozenges (Cepacol Sore Throat Lozenge) 1 lozenge MUCOUS MEM Q2H PRN PRN PRN Reason: COUGH Valproic Acid (Depakene) 500 mg GT 4X/DAY [facility] Last Admin: 02/07/19 21:41 Dose: 500 mg Documented by: STROKE Vital Signs/Narrative: Vital Signs Temp Pulse Resp BP Pulse Ox 02/08/19 06:00 100.5 F H 77 12 112/77 93 02/08/19 05:40 85 26 H 92 02/08/19 05:00 100.1 F H 78 15 105/62 93 02/08/19 04:00 99.5 F H 89 17 114/82 H 89 Medical Necessity - Tobacco Use Smoking Status: Current every day smoker Tobacco Use: Cigarettes Assessment/Plan All Active Problems CVA (cerebral vascular accident) (Acute) Slurred speech (Acute) COPD exacerbation (Acute) The patient is a 63 y/o M w/ PMHx: Chronic COPD w/ Chronic Hypoxic Respiratory Failure (4-5L NC) following w/ [facility], Obesity, HTN, HLD, Depression and Anxiety, Hx DVT/PE on coumadin, Seizure disorder, Tobacco use ongoing who presents to the [facility] ED on 01/23/19 with history of 2 to 3 days of progressively worsening fatigue, weakness generally, dyspnea worse with exertion with mildly productive cough of yellow-shields sputum with ongoing wheezing x 2 days. 1. Acute Septic Shock secondary to Acute on Chronic Hypoxic Respiratory Failure secondary to Acute on chronic COPD exacerbation and Aspiration Pneumonia: Initial ED evaluation with chest x-ray with chronic changes with CBC with no market WBC elevation and maintained on oxygen supplementation however clinically worsened and required transition to the ICU with intubation, sedation with negative blood cultures, sputum cultures with Haemophilus influenza and Streptococcus pneumonia, maintained on IV Unasyn x 10-day course of antibiotic therapy, treated on ATC duoneb, PRN albuterol, IV Solu-Medrol transitioned to prednisone taper, aggressive IV fluid administration given concurrent septic shock treated initially with Levophed, transitioned off, still failing spontaneous breathing trials, deferred trial 02/06/19 for planned intervention as noted. Given patient slow weight increase with edema may need to pulse dose with IV Lasix with close monitoring of renal function, will review with ICU. 02/06/19 PEG tube per General Surgery with tube feed initiation. Initial attempts for Trach placement to which patient and family were amenable; however, patient FIO2 requirements > 60%, not reasonable to attempt extubation trials at this time. Will re-discuss trach placement with ENT, Dr. Becerril, awaiting his evaluation. Overnight 02/07/19-02/08/19 F, pending UCx, Bld Cx per ICU physician direction. 2. Acute Pulmonary Embolism: CT chest with small segmental right-sided PE with history of prior PE and DVT, could initially transition to Eliquis secondary to crush reaction with Coumadin and Depakote, transitioned to therapeutic Lovenox, continue although will be held for trach placement temporarily. 3. Hypertension: Regimen held upon admission given #1, BP low normal, off pressor therapy, PRN agents as needed. 4. Hyperlipidemia: Continue on high-dose statin therapy. 5. History of DVT/PE: Upon admission position from Coumadin to Eliquis secondary to cross-reactivity of medications, given acute presentation with #1, #2 transitioned to therapeutic Lovenox, continue although will need held for trach placement temporarily. 6. Obesity: Weight loss and lifestyle changes encouraged, nutrition consulted. 7. Seizure disorder: Continued on Depakote regimen. 8. Tobacco Abuse: Encouraged upon admission cessation, inpatient consultation per RT if clinically becomes appropriate given #1, NR if desired. 9. GERD: Famotidine. 10. Microcytic anemia: Hemoglobin 14.4 however repeat 01/24/2019 12.8, 02/08/2019 hemoglobin 10.5, baseline 10-11 range, B12 normal level, RBC folate pending, likely a send out lab. 11. DVT prophylaxis: SCDs, therapeutic Lovenox, continue although will be held for trach placement temporarily. 12. CODE status: Full Code. Code Visit Inpatient E&M: 90452 Subs Hosp L3
--- NOTE | 2019-02-08 09:18 | PCM.PN.SRG ---
Patient Problems: Active and Suspected Problems CVA (cerebral vascular accident) (Acute) Slurred speech (Acute) Subjective: Patient intubated and sedated, tolerating tube feeds at 60 cc/hr, anticoagulation still held due to uncertain timing of trach - Physical Exam Vitals/I&O's: Vital Signs Temp Pulse Resp BP Pulse Ox 100.5 F H 79 29 H 112/77 95 02/08/19 06:00 02/08/19 08:00 02/08/19 06:22 02/08/19 06:00 02/08/19 06:22 Oxygen Flow Rate (L/min) 4 Oxygen Delivery Method Mechanical Ventilator Weight: 214 lb 4.629 oz Body Mass Index (BMI) 31.9 Intake and Output for Last 24 Hours 02/06/19 02/07/19 02/08/19 23:59 23:59 23:59 Intake Total 1986.25 / 2514.17 2417.36 / 2981.36 1194.57 / 1194.57 Output Total 625 / 950 2075 / 2375 500 / 500 Balance 1361.25 / 1564.17 342.36 / 606.36 694.57 / 694.57 General: - - Intubated/sedated Abdomen: Soft, Non-Distended, - - PEG tube in place Laboratory Results 02/07/19 12:05: POC Glucose 85 02/07/19 17:09: POC Glucose 98 02/08/19 00:57: POC Glucose 87 02/08/19 04:35: WBC 7.5, RBC 2.94 L, Hgb 10.5 L, Hct 30.9 L, MCV 105.1 H, MCH 35.7 H, MCHC 34.0, RDW Std Deviation 55.8 H, RDW Coeff of Mohsen 14.9 H, Plt Count 128 L, MPV 10.4, Immature Gran % (Auto) 1.300 H, Neut % (Auto) 72.3 H, Lymph % (Auto) 19.1, [place]iebach % (Auto) 6.8, Eos % (Auto) 0.4, Baso % (Auto) 0.1, Absolute Neuts (auto) 5.4, Absolute Lymphs (auto) 1.42, Nucleated RBC % 0 02/08/19 04:35: Sodium 135 L, Potassium 3.4 L, Chloride 95 L, Carbon Dioxide 38.0 H, Anion Gap 2 L, BUN 14, Creatinine 0.26 L, Estim Creat Clear Calc 298.36, Est GFR (MDRD) Af Amer 452, Est GFR (MDRD) Non-Af 373, BUN/Creatinine Ratio 52.8 H, Glucose 91, Calcium 8.1 L, Total Bilirubin 0.60, AST 32, ALT 21, Alkaline Phosphatase 56, Total Protein 5.9 L, Albumin 1.9 L, Globulin 4.0, Albumin/Globulin Ratio 0.5 L 02/08/19 06:12: POC Glucose 71 Current Medications Acetaminophen (Tylenol) 650 mg PO Q6H PRN PRN PRN Reason: Non-cardiac pain (-12/14) Last Admin: 01/25/19 15:13 Dose: 650 mg Documented by: Acetaminophen (Tylenol Liquid) 650 mg GT Q6H PRN PRN PRN Reason: TEMP>101 Al Hydroxide/Mg Hydroxide (Mylanta Ii) 15 - 30 ml PO Q4H PRN PRN PRN Reason: INDIGESTION Albuterol Sulfate (Ventolin Aerosols) 2.5 mg INHALATION Q2H PRN PRN PRN Reason: dyspnea, wheezing Last Admin: 01/26/19 09:26 Dose: 2.5 mg Documented by: Albuterol/Ipratropium (Duoneb) 3 ml INHALATION Q4HWA.RT [facility] Last Admin: 02/08/19 06:22 Dose: 3 ml Documented by: Atorvastatin Calcium (Lipitor) 80 mg GT QHS [facility] Last Admin: 02/07/19 21:41 Dose: 80 mg Documented by: Chlorhexidine Gluconate () 15 ml PO BID [facility] Last Admin: 02/07/19 21:50 Dose: 15 ml Documented by: Chlorhexidine Gluconate () 1 each TOPICAL DAILY [facility] Last Admin: 02/07/19 10:00 Dose: Not Given Documented by: Dextrose (D50w Syringe) 0 gm IV X1 PRN; Protocol PRN Reason: Hypoglycemia Divalproex Sodium (Depakote Er) 500 mg PO 0700,1300 [facility] Last Admin: 01/26/19 13:30 Dose: Not Given Documented by: Divalproex Sodium (Depakote Er) 1,000 mg PO QHS [facility] Last Admin: 01/25/19 21:41 Dose: 1,000 mg Documented by: Enoxaparin Sodium (Lovenox) 100 mg SC Q12@0600,1800 [facility] Last Admin: 02/08/19 06:03 Dose: 100 mg Documented by: Gabapentin (Neurontin) 300 mg GT TID [facility] Last Admin: 02/08/19 06:03 Dose: 300 mg Documented by: Glucagon () 1 mg IM .X1 PRN PRN Reason: Hypoglycemia Guaifenesin (Robitussin) 10 ml GT Q6H PRN Guaifenesin (Robitussin) 10 ml GT Q6H [facility] Last Admin: 02/08/19 06:03 Dose: 10 ml Documented by: Sodium Chloride () 250 mls @ 15 mls/hr IV .[id number] PRN PRN Reason: Saline Flush Last Infusion: 02/03/19 17:32 Dose: Infused Documented by: Enteral Nutritional Formula (Vital Af 1.2 Truong Liquid) 1,000 mls @ 60 mls/hr GT .[id number] [facility] Last Admin: 02/08/19 05:05 Dose: Not Given Documented by: Fentanyl () 100 mls @ 15 mls/hr IV UD [facility]; Protocol Last Titration: 02/08/19 08:00 Dose: 125 mcg/hr, 12.5 mls/hr Documented by: Propofol (Diprivan) 1,000 mg in 100 mls @ 17.496 mls/hr CONT INF .Q5H43M [facility]; Protocol Last Titration: 02/08/19 08:00 Dose: 25 mcg/kg/min, 14.6 mls/hr Documented by: Insulin Human Lispro (Humalog Anju (Bkc)) 0 unit SC Q6 [facility]; Protocol Last Admin: 02/08/19 06:15 Dose: Not Given Documented by: Lansoprazole (Lansoprazole) 30 mg GT DAILY [facility] Last Admin: 02/07/19 10:09 Dose: 30 mg Documented by: Magnesium Hydroxide (Milk Of Magnesia) 30 ml GT DAILY PRN PRN Reason: Constipation Last Admin: 01/30/19 09:33 Dose: 30 ml Documented by: Nicotine (Nicoderm Cq (Pbkc)) 21 mg TRANSDERM. DAILY [facility] Last Admin: 02/07/19 10:07 Dose: 21 mg Documented by: Nitroglycerin (Nitrostat) 0.4 mg SUBLINGUAL Q5M PRN PRN Reason: CARDIAC/CHEST PAIN Ondansetron HCl (Zofran) 4 mg IV Q8H PRN PRN PRN Reason: NAUSEA/VOMITING Polyethylene Glycol (Miralax) 17 gm GT BID [facility] Last Admin: 02/07/19 21:41 Dose: 17 gm Documented by: Prednisone () 20 mg GT DAILY@0800 [facility] Last Admin: 02/07/19 10:11 Dose: 20 mg Documented by: Senna/Docusate Sodium (Senokot-S, Lila-Colace) 2 tablet GT BID [facility] Last Admin: 02/07/19 21:41 Dose: 2 tablet Documented by: Sodium Chloride () 10 - 40 ml IV UD PRN PRN Reason: SALINE FLUSH Last Admin: 02/06/19 10:28 Dose: 20 ml Documented by: Throat Lozenges (Cepacol Sore Throat Lozenge) 1 lozenge MUCOUS MEM Q2H PRN PRN PRN Reason: COUGH Valproic Acid (Depakene) 500 mg GT 4X/DAY [facility] Last Admin: 02/07/19 21:41 Dose: 500 mg Documented by: Medical Necessity - Tobacco Use Smoking Status: Current every day smoker Tobacco Use: Cigarettes Assessment/Plan All Active Problems CVA (cerebral vascular accident) (Acute) Slurred speech (Acute) COPD exacerbation (Acute) 63-year-old male with hypoxia on the ventilator, malnutrition, need for PEG tube status post PEG placement Patient tolerating tube feeds. Okay to restart anticoagulation per ICU. Will sign off call with any questions. Agnes Pike M.D. Pager: [phone] [facility] [address] [place] [address], [address] [place] [address] Office: [phone]
[2019-02-08] MEDS: 0.9% Saline Lock 10 ML Syringe IV ×2 (09:48→11:54)
[2019-02-08] MEDS: predniSONE 20 MG Tablet GT (09:49)
[2019-02-08] MEDS: CHLORHEXIDINE GLUC 2% CLOTH 1 EACH TOWELETTE TOPICAL (10:00)
[2019-02-08] MEDS: Lansoprazole 15 MG Capsule.DR 30 MG GT (10:00)
[2019-02-08] MEDS: Polyethylene Glycol 3350 17 GM PACKET GT ×2 (10:01→20:35)
[2019-02-08] MEDS: Chlorhexidine 15 ML PO ×2 (10:02→20:35)
[2019-02-08] MEDS: fentaNYL drip 100 ML 12.5 MCG IV ×2 (10:10→17:52)
[2019-02-08] MEDS: Acetaminophen 650 MG/20 ML UDC GT (11:50)
[2019-02-08 11:56] LABS: Bedside Glucose 109 mg/dL (70-110)
[2019-02-08] MEDS: Propofol 10MG/Ml 1,000 MG/100 ML Bottle 14.6 MG CONT INF (12:00)
[2019-02-08] MEDS: Vital AF 1.2 Cal Liquid 1,000 ML 60 ML GT (12:18)
[2019-02-08] MEDS: Furosemide 40 MG/4 ML Vial IV (12:21)
--- NOTE | 2019-02-08 12:30 | CASEMGMT ---
RANDY DAVIDSON NOTE: Call received from Kiran @ [facility]. She states they are not able to apply for pt to be accepted until the trach has been placed and pt is off of Fentanyl and Propofol gtts. She asks for updated clinicals to be faxed to [place] once trach is placed. Per Kiran, she will not be working tomorrow 02/09. She states Jyoti will be available and will have her phone number. Radha BAÑUELOS RN, CM
[2019-02-08] MEDS: Insulin Lispro 100 UNIT/ML INSULN.PEN SC (17:49)
[2019-02-08 17:51] LABS: Bedside Glucose 150 mg/dL (70-110)
[2019-02-08] MEDS: Senna/Docusate Sodium 1 Tablet 2 TABLET GT (20:35)
[2019-02-08] MEDS: Atorvastatin Calcium 80 MG Tablet GT (20:35)
[2019-02-08] MEDS: Propofol 10MG/Ml 1,000 MG/100 ML Bottle 5.8 MG CONT INF (20:37)
--- NOTE | 2019-02-08 22:36 | NURSING ---
report given to Cathy PADILLA. change of staff assignments
[2019-02-08 23:21] LABS: Bedside Glucose 98 mg/dL (70-110)
[2019-02-09] VITALS (46 sets, daily range): BP systolic 85–115; BP diastolic 44–75; PULSE 58–108; RESP 12–25; TEMP 36.8–37.9; O2SAT 89–100
[2019-02-09] MEDS: guaiFENesin 10 ML UDC (200MG/10ML) GT ×4 (01:22→17:04)
[2019-02-09] MEDS: fentaNYL drip 100 ML 12.5 MCG IV (02:56)
[2019-02-09 04:22] LABS: Absolute Lymphocyte Count 1.31 X10^3/uL (0.83-4.51); Absolute Neutrophil Count 3.6 X10^3/uL (2.0-7.7); Basophil# 0.01 X10^3/uL; Basophil% 0.2 % (0-1); Eosinophil# 0.02 X10^3/uL; Eosinophils% 0.4 % (0-5); Hematocrit 31.1 % (40-54); Lymphocyte # 1.31 X10^3/ul (4.0); Lymphocyte % 24.3 % (19-41); Mean Corp Hgb Conc 32.2 g/dL (32-36); Mean Corpuscular Volume 105.8 fL (80-94); Mean Platelet Vol. 10.2 fl (6.2-12.0); Monocyte# 0.38 X10^3/uL; Monocyte% 7.1 % (0-10); NRBC Flagged by Analyzer 0 % (0-5); Neutrophil # 3.62 X10^3/uL (2.7-7.7); Neutrophil % 67.3 % (47-70); Platelet Count 133 K/mm3 (150-450); RBC Distribution Width SD 57.2 fl (35.1-43.9); Red Blood Count 2.94 M/mm3 (4.6-6.2); White Blood Count 5.4 K/mm3 (4.4-11.0)
[2019-02-09 04:41] LABS: ALB/GLOB Ratio 0.5 RATIO (0.9-2.4); AST(SGOT) 29 U/L (15-37); Alanine Aminotransfer ALT/SGPT 18 U/L (16-61); Alkaline Phosphatase 63 U/L (45-117); Anion Gap 1 (5-15); BUN 14 mg/dL (7-18); BUN/Creat Ratio 44.9 RATIO (10-20); Calcium,Total 8.4 mg/dL (8.5-10.1); Chloride 99 mmol/L (98-107); Creatinine, Serum 0.31 mg/dL (0.70-1.30); EST Glomerular Filtration Rate 309 mL/min (>60); Est Glom Filt Rate - Afr Amer 374 mL/min (>60); Estimated Creatinine Clearance 250.24 ml/min; Globulin 3.8 g/dL (2.2-4.2); Glucose 100 mg/dL (74-106); Potassium 3.5 mmol/L (3.5-5.1); Protein, Total 5.8 g/dL (6.4-8.2); Sodium Level 139 mmol/L (136-145)
[2019-02-09] MEDS: Gabapentin 300 MG Capsule GT ×3 (05:25→21:31)
[2019-02-09 05:41] LABS: Bedside Glucose 113 mg/dL (70-110)
[2019-02-09] MEDS: Ipratropium/Albuterol Sulfate 3 ML AMPUL.NEB INHALATION ×5 (06:34→22:15)
--- NOTE | 2019-02-09 06:56 | PCM.PN.HOSP ---
Patient Problems: Active and Suspected Problems CVA (cerebral vascular accident) (Acute) Slurred speech (Acute) Subjective: Patient overnight with increased vent needs otherwise remained afebrile, pending Gram stain, urine culture as well as blood culture x2 also pending, patient more awake this morning, sedation decreased and notes that his abdominal discomfort at the PEG tube site has resolved. Nursing staff do note that he was more anxious prior but, currently. Discussed with patient given more alert plan for placement of trach on Tuesday which would allow us to remove the tube from his mouth. No obvious evidence of fevers, chills, nausea, emesis, abdominal pain, chest pain or dyspnea. Objective: Physical Examination: General: Intubated, sedated but more alert today, sedation currently decreased, earlier per staff was more agitated, nodding head to some questions, no obvious distress, seated upright in the ICU bed. Skin: normal color, turgor, no icterus, cyanosis. HEENT: AT/NC, EOMI, PERRLA, mildly dry MM, intubated. Lungs: Bilaterally diminished breath sounds, greater bases, intubated, symmetric rise, no current obvious rales, ronchi or wheezing. Heart: Regular rate and rhythm; no gallop, rub audible. Abdomen: soft, obese, NTTP, ND, normal BS. Extremities: no cyanosis, clubbing, BL UE and LE edema, increased from day prior, 2+ pitting. Neurological: Intubated, sedated but more alert today, nodding head to some questions, no obvious distress, seated upright in the ICU bed; cognitive function not baseline intact; pupils equally reactive to light and accomodation; cranial nerves unable to be assessed appear intact but given current mildly sedated, intubated status incomplete, strength remains accordingly severely global decreased given current presentation. Psychiatric: affect appears more alert, still fatigued, flat, no acute evidence of depressive or anxiety feelings. Vitals/I&O's: Vital Signs Temp Pulse Resp BP Pulse Ox 98.9 F 65 14 94/59 L 93 02/09/19 06:00 02/09/19 06:00 02/09/19 06:00 02/09/19 06:00 02/09/19 06:00 Oxygen Flow Rate (L/min) 4 Oxygen Delivery Method Mechanical Ventilator Weight: 213 lb 6.519 oz Body Mass Index (BMI) 31.9 Intake and Output for Last 24 Hours 02/07/19 02/08/19 02/09/19 23:59 23:59 23:59 Intake Total 2417.36 / 2981.36 2905.03 / 2965.03 463.08 / 463.08 Output Total 2075 / 2375 1900 / 1900 250 / 250 Balance 342.36 / 606.36 1005.03 / 1065.03 213.08 / 213.08 Microbiology Past 72 Hours 02/08/19 11:35 Sputum, Induced/Lukens Gram Stain - Final Laboratory Results 01/26/19 06:45: Whole Bld Vitamin B1 Cancelled 02/08/19 04:35: Whole Bld Vitamin B1 Pending 02/08/19 11:48: POC Glucose 109 02/08/19 17:45: POC Glucose 150 H 02/08/19 23:17: POC Glucose 98 02/09/19 04:10: WBC 5.4, RBC 2.94 L, Hgb 10.0 L, Hct 31.1 L, MCV 105.8 H, MCH 34.0 H, MCHC 32.2, RDW Std Deviation 57.2 H, RDW Coeff of Mohsen 15.0 H, Plt Count 133 L, MPV 10.2, Immature Gran % (Auto) 0.700, Neut % (Auto) 67.3, Lymph % (Auto) 24.3, Gates % (Auto) 7.1, Eos % (Auto) 0.4, Baso % (Auto) 0.2, Absolute Neuts (auto) 3.6, Absolute Lymphs (auto) 1.31, Nucleated RBC % 0 02/09/19 04:10: Sodium 139, Potassium 3.5, Chloride 99, Carbon Dioxide 39.0 H, Anion Gap 1 L, BUN 14, Creatinine 0.31 L, Estim Creat Clear Calc 250.24, Est GFR (MDRD) Af Amer 374, Est GFR (MDRD) Non-Af 309, BUN/Creatinine Ratio 44.9 H, Glucose 100, Calcium 8.4 L, Total Bilirubin 0.40, AST 29, ALT 18, Alkaline Phosphatase 63, Total Protein 5.8 L, Albumin 2.0 L, Globulin 3.8, Albumin/Globulin Ratio 0.5 L 02/09/19 05:34: POC Glucose 113 H Current Medications Acetaminophen (Tylenol) 650 mg PO Q6H PRN PRN PRN Reason: Non-cardiac pain (-12/14) Last Admin: 01/25/19 15:13 Dose: 650 mg Documented by: Acetaminophen (Tylenol Liquid) 650 mg GT Q6H PRN PRN PRN Reason: TEMP>101 Last Admin: 02/08/19 11:50 Dose: 650 mg Documented by: Al Hydroxide/Mg Hydroxide (Mylanta Ii) 15 - 30 ml PO Q4H PRN PRN PRN Reason: INDIGESTION Albuterol Sulfate (Ventolin Aerosols) 2.5 mg INHALATION Q2H PRN PRN PRN Reason: dyspnea, wheezing Last Admin: 01/26/19 09:26 Dose: 2.5 mg Documented by: Albuterol/Ipratropium (Duoneb) 3 ml INHALATION Q4HWA.RT [facility] Last Admin: 02/09/19 06:34 Dose: 3 ml Documented by: Atorvastatin Calcium (Lipitor) 80 mg GT QHS [facility] Last Admin: 02/08/19 20:35 Dose: 80 mg Documented by: Chlorhexidine Gluconate () 15 ml PO BID [facility] Last Admin: 02/08/19 20:35 Dose: 15 ml Documented by: Chlorhexidine Gluconate () 1 each TOPICAL DAILY [facility] Last Admin: 02/08/19 10:00 Dose: 1 each Documented by: Dextrose (D50w Syringe) 0 gm IV X1 PRN; Protocol PRN Reason: Hypoglycemia Divalproex Sodium (Depakote Er) 500 mg PO 0700,1300 [facility] Last Admin: 01/26/19 13:30 Dose: Not Given Documented by: Divalproex Sodium (Depakote Er) 1,000 mg PO QHS [facility] Last Admin: 01/25/19 21:41 Dose: 1,000 mg Documented by: Gabapentin (Neurontin) 300 mg GT TID [facility] Last Admin: 02/09/19 05:25 Dose: 300 mg Documented by: Glucagon () 1 mg IM .X1 PRN PRN Reason: Hypoglycemia Guaifenesin (Robitussin) 10 ml GT Q6H PRN Guaifenesin (Robitussin) 10 ml GT Q6H [facility] Last Admin: 02/09/19 05:35 Dose: 10 ml Documented by: Sodium Chloride () 250 mls @ 15 mls/hr IV .[id number] PRN PRN Reason: Saline Flush Last Infusion: 02/08/19 19:02 Dose: 15 mls/hr Documented by: Enteral Nutritional Formula (Vital Af 1.2 Truong Liquid) 1,000 mls @ 60 mls/hr GT .[id number] [facility] Last Admin: 02/08/19 12:18 Dose: 60 mls/hr Documented by: Fentanyl () 100 mls @ 15 mls/hr IV UD [facility]; Protocol Last Titration: 02/09/19 06:00 Dose: 75 mcg/hr, 7.5 mls/hr Documented by: Propofol (Diprivan) 1,000 mg in 100 mls @ 17.424 mls/hr CONT INF .Q5H45M [facility]; Protocol Last Titration: 02/09/19 06:00 Dose: 10 mcg/kg/min, 5.8 mls/hr Documented by: Piperacillin Sod/Tazobactam (Sod 3.375 gm/ Sodium Chloride) 50 mls @ 12.5 mls/hr IV Q8 [facility] Last Admin: 02/09/19 05:25 Dose: 12.5 mls/hr Documented by: Insulin Human Lispro (Humalog Kwikpen (Bkc)) 0 unit SC Q6 [facility]; Protocol Last Admin: 02/09/19 05:35 Dose: Not Given Documented by: Lansoprazole (Lansoprazole) 30 mg GT DAILY [facility] Last Admin: 02/08/19 10:00 Dose: 30 mg Documented by: Magnesium Hydroxide (Milk Of Magnesia) 30 ml GT DAILY PRN PRN Reason: Constipation Last Admin: 01/30/19 09:33 Dose: 30 ml Documented by: Nicotine (Nicoderm Cq (Pbkc)) 21 mg TRANSDERM. DAILY [facility] Last Admin: 02/08/19 10:02 Dose: 21 mg Documented by: Nitroglycerin (Nitrostat) 0.4 mg SUBLINGUAL Q5M PRN PRN Reason: CARDIAC/CHEST PAIN Ondansetron HCl (Zofran) 4 mg IV Q8H PRN PRN PRN Reason: NAUSEA/VOMITING Polyethylene Glycol (Miralax) 17 gm GT BID [facility] Last Admin: 02/08/19 20:35 Dose: 17 gm Documented by: Prednisone () 20 mg GT DAILY@0800 [facility] Last Admin: 02/08/19 09:49 Dose: 20 mg Documented by: Senna/Docusate Sodium (Senokot-S, Lila-Colace) 2 tablet GT BID [facility] Last Admin: 02/08/19 20:35 Dose: 2 tablet Documented by: Sodium Chloride () 10 - 40 ml IV UD PRN PRN Reason: SALINE FLUSH Last Admin: 02/08/19 11:54 Dose: 20 ml Documented by: Throat Lozenges (Cepacol Sore Throat Lozenge) 1 lozenge MUCOUS MEM Q2H PRN PRN PRN Reason: COUGH Valproic Acid (Depakene) 500 mg GT 4X/DAY [facility] Last Admin: 02/08/19 20:34 Dose: 500 mg Documented by: STROKE Vital Signs/Narrative: Vital Signs Temp Pulse Resp BP Pulse Ox 02/09/19 06:00 98.9 F 65 14 94/59 L 93 02/09/19 05:20 82 17 93 02/09/19 05:00 98.7 F 74 17 94/62 92 02/09/19 04:00 98.3 F 75 15 92/54 L 93 02/09/19 03:00 98.3 F 63 12 85/52 L 92 02/09/19 02:59 62 Medical Necessity - Tobacco Use Smoking Status: Current every day smoker Tobacco Use: Cigarettes Assessment/Plan All Active Problems CVA (cerebral vascular accident) (Acute) Slurred speech (Acute) COPD exacerbation (Acute) The patient is a 63 y/o M w/ PMHx: Chronic COPD w/ Chronic Hypoxic Respiratory Failure (4-5L NC) following w/ [facility] Pulmonary, Obesity, HTN, HLD, Depression and Anxiety, Hx DVT/PE on coumadin, Seizure disorder, Tobacco use ongoing who presents to the [facility] ED on 01/23/19 with history of 2 to 3 days of progressively worsening fatigue, weakness generally, dyspnea worse with exertion with mildly productive cough of yellow-shields sputum with ongoing wheezing x 2 days. 1. Acute Septic Shock secondary to Acute on Chronic Hypoxic Respiratory Failure secondary to Acute on chronic COPD exacerbation and Aspiration Pneumonia as well as Haemophilus Influenzae and Streptococcal Pneumonia: Initial ED evaluation with chest x-ray with chronic changes with CBC with no market WBC elevation and maintained on oxygen supplementation however clinically worsened and required transition to the ICU with intubation, sedation with negative blood cultures, sputum cultures with Haemophilus influenza and Streptococcus pneumonia, maintained on IV Unasyn x 10-day course of antibiotic therapy, treated on ATC duoneb, PRN albuterol, IV Solu-Medrol transitioned to prednisone taper, aggressive IV fluid administration given concurrent septic shock treated initially with Levophed, transitioned off, still serially failed spontaneous breathing trials. Intermittent pulse lasix usage given weight slow increase, edema.02/06/19 PEG tube per General Surgery with tube feed initiation. Dr. Becerril consulted, planned trach 02/12/19. Increased vent settings overnight 02/08-02/09/19. Overnight 02/07/19-02/08/19 F, pending UCx, Bld Cx, Sputum per ICU physician direction, all pending but since has remained afebrile. 2. Acute Pulmonary Embolism: CT chest with small segmental right-sided PE with history of prior PE and DVT, could initially transition to Eliquis secondary to crush reaction with Coumadin and Depakote, transitioned to therapeutic Lovenox. 3. Hypertension: Regimen held upon admission given #1, BP low normal, off pressor therapy, PRN agents as needed. 4. Hyperlipidemia: Continue on high-dose statin therapy. 5. History of DVT/PE: Upon admission position from Coumadin to Eliquis secondary to cross-reactivity of medications, given acute presentation with #1, #2 transitioned to therapeutic Lovenox. 6. Obesity: Weight loss and lifestyle changes encouraged, nutrition consulted. 7. Seizure disorder: Continued on Depakote regimen. 8. Tobacco Abuse: Encouraged upon admission cessation, inpatient consultation per RT if clinically becomes appropriate given #1, NR if desired. 9. GERD: Famotidine. 10. Microcytic anemia: Hemoglobin 14.4 however repeat 01/24/2019 12.8, 02/09/2019 hemoglobin 10.0, baseline 10-11 range, B12 normal level, RBC folate pending, likely a send out lab. 11. DVT prophylaxis: SCDs, therapeutic Lovenox. 12. CODE status: Full Code. Code Visit Inpatient E&M: 75999 Subs Hosp L2
--- NOTE | 2019-02-09 07:27 | PCM.PN.INT ---
Subjective: The patient was seen and examined at the bedside this morning. Events from the last 24 hours have been reviewed. The patient is currently afebrile, hemodynamically stable and maintaining appropriate oxygen saturations on assist control mode of mechanical ventilation with an FiO2 requirement of 50%. The patient was febrile most of yesterday with a T-max noted to be 101.9 ?F. Empiric antimicrobials were restarted yesterday accordingly. The patient was noted to become significantly agitated and restless during his spontaneous awakening trial this morning. A second opinion ENT consultation was obtained yesterday, with tentative plans to proceed with tracheostomy on February 12. The patient is currently documented to be overall net +11.6 L for the admission. Objective: The patient's most recent lab work, culture data and imaging studies have all been personally reviewed. Sputum culture dated January 26 was positive for both Haemophilus influenza and Streptococcus pneumoniae. General: - - Intubated, sedated and mechanically ventilated HEENT: Atraumatic, PERRLA, Normocephalic Oral: No Gingival or Mucosal Lesions/ Ulcerations, - - Endotracheal tube remains in place Neck: Supple, No Nodes, Trachea Midline Lungs: No rhonchi, No wheeze, No rales, Diminished Cardiovascular: Regular rate, Regular Rhythm, Normal S1, Normal S2, No murmurs Abdomen: Bowel Sounds Present, Soft, Non Tender, - - PEG site is C/D/I Extremities: No clubbing, No cyanosis, Edema Skin: No breakdown Musculoskeletal: No Tenderness to Palpation of Joints or Extremities Lymphatic: No Cervical, Supraclavicular, or Inguinal Adenopathy Neurological: - - No focal neurological deficits. Currently sedated. Vital Signs Temp Pulse Resp BP Pulse Ox 98.9 F 65 14 94/59 L 93 02/09/19 06:00 02/09/19 06:00 02/09/19 06:00 02/09/19 06:00 02/09/19 06:00 Oxygen Flow Rate (L/min) 4 Oxygen Delivery Method Mechanical Ventilator Weight: 213 lb 6.519 oz Body Mass Index (BMI) 31.9 Intake and Output for Last 24 Hours 02/07/19 02/08/19 02/09/19 23:59 23:59 23:59 Intake Total 2417.36 / 2981.36 2905.03 / 2965.03 463.08 / 463.08 Output Total 2075 / 2375 1900 / 1900 250 / 250 Balance 342.36 / 606.36 1005.03 / 1065.03 213.08 / 213.08 Labs (Last 48 Hours) 01/26/19 02/07/19 02/07/19 06:45 12:05 17:09 WBC RBC Hgb Hct MCV MCH MCHC RDW Std Deviation RDW Coeff of Mohsen Plt Count MPV Immature Gran % (Auto) Neut % (Auto) Lymph % (Auto) Braxton % (Auto) Eos % (Auto) Baso % (Auto) Absolute Neuts (auto) Absolute Lymphs (auto) Nucleated RBC % Sodium Potassium Chloride Carbon Dioxide Anion Gap BUN Creatinine Estim Creat Clear Calc Est GFR (MDRD) Af Amer Est GFR (MDRD) Non-Af BUN/Creatinine Ratio Glucose Calcium Total Bilirubin AST ALT Alkaline Phosphatase Total Protein Albumin Globulin Albumin/Globulin Ratio Whole Bld Vitamin B1 Cancelled POC Glucose 85 98 02/08/19 02/08/19 02/08/19 00:57 04:35 04:35 WBC 7.5 RBC 2.94 L Hgb 10.5 L Hct 30.9 L MCV 105.1 H MCH 35.7 H MCHC 34.0 RDW Std Deviation 55.8 H RDW Coeff of Mohsen 14.9 H Plt Count 128 L MPV 10.4 Immature Gran % (Auto) 1.300 H Neut % (Auto) 72.3 H Lymph % (Auto) 19.1 Braxton % (Auto) 6.8 Eos % (Auto) 0.4 Baso % (Auto) 0.1 Absolute Neuts (auto) 5.4 Absolute Lymphs (auto) 1.42 Nucleated RBC % 0 Sodium 135 L Potassium 3.4 L Chloride 95 L Carbon Dioxide 38.0 H Anion Gap 2 L BUN 14 Creatinine 0.26 L Estim Creat Clear Calc 298.36 Est GFR (MDRD) Af Amer 452 Est GFR (MDRD) Non-Af 373 BUN/Creatinine Ratio 52.8 H Glucose 91 Calcium 8.1 L Total Bilirubin 0.60 AST 32 ALT 21 Alkaline Phosphatase 56 Total Protein 5.9 L Albumin 1.9 L Globulin 4.0 Albumin/Globulin Ratio 0.5 L Whole Bld Vitamin B1 POC Glucose 87 02/08/19 02/08/19 02/08/19 04:35 06:12 11:48 WBC RBC Hgb Hct MCV MCH MCHC RDW Std Deviation RDW Coeff of Mohsen Plt Count MPV Immature Gran % (Auto) Neut % (Auto) Lymph % (Auto) Braxton % (Auto) Eos % (Auto) Baso % (Auto) Absolute Neuts (auto) Absolute Lymphs (auto) Nucleated RBC % Sodium Potassium Chloride Carbon Dioxide Anion Gap BUN Creatinine Estim Creat Clear Calc Est GFR (MDRD) Af Amer Est GFR (MDRD) Non-Af BUN/Creatinine Ratio Glucose Calcium Total Bilirubin AST ALT Alkaline Phosphatase Total Protein Albumin Globulin Albumin/Globulin Ratio Whole Bld Vitamin B1 Pending POC Glucose 71 109 02/08/19 02/08/19 02/09/19 17:45 23:17 04:10 WBC 5.4 RBC 2.94 L Hgb 10.0 L Hct 31.1 L MCV 105.8 H MCH 34.0 H MCHC 32.2 RDW Std Deviation 57.2 H RDW Coeff of Mohsen 15.0 H Plt Count 133 L MPV 10.2 Immature Gran % (Auto) 0.700 Neut % (Auto) 67.3 Lymph % (Auto) 24.3 Braxton % (Auto) 7.1 Eos % (Auto) 0.4 Baso % (Auto) 0.2 Absolute Neuts (auto) 3.6 Absolute Lymphs (auto) 1.31 Nucleated RBC % 0 Sodium Potassium Chloride Carbon Dioxide Anion Gap BUN Creatinine Estim Creat Clear Calc Est GFR (MDRD) Af Amer Est GFR (MDRD) Non-Af BUN/Creatinine Ratio Glucose Calcium Total Bilirubin AST ALT Alkaline Phosphatase Total Protein Albumin Globulin Albumin/Globulin Ratio Whole Bld Vitamin B1 POC Glucose 150 H 98 02/09/19 02/09/19 04:10 05:34 WBC RBC Hgb Hct MCV MCH MCHC RDW Std Deviation RDW Coeff of Mohsen Plt Count MPV Immature Gran % (Auto) Neut % (Auto) Lymph % (Auto) Braxton % (Auto) Eos % (Auto) Baso % (Auto) Absolute Neuts (auto) Absolute Lymphs (auto) Nucleated RBC % Sodium 139 Potassium 3.5 Chloride 99 Carbon Dioxide 39.0 H Anion Gap 1 L BUN 14 Creatinine 0.31 L Estim Creat Clear Calc 250.24 Est GFR (MDRD) Af Amer 374 Est GFR (MDRD) Non-Af 309 BUN/Creatinine Ratio 44.9 H Glucose 100 Calcium 8.4 L Total Bilirubin 0.40 AST 29 ALT 18 Alkaline Phosphatase 63 Total Protein 5.8 L Albumin 2.0 L Globulin 3.8 Albumin/Globulin Ratio 0.5 L Whole Bld Vitamin B1 POC Glucose 113 H Microbiology 02/08/19 11:35 Sputum, Induced/Lukens Gram Stain - Final Clinical Impression(s) from Imaging Studies Brain CT 01/23/19 18:35 IMPRESSION: Chronic involutional changes of the brain. Electronically Signed: Ford Craig MD at 19:28 EST , Service support , Chest X-Ray 01/23/19 18:37 IMPRESSION: Calcified plaques of the thoracic aorta. Multiple old bilateral rib fractures. No acute cardiopulmonary disease process is seen. Electronically Signed: Ford Craig MD at 18:56 EST , Service support , Head MRA 01/24/19 12:20 IMPRESSION: Normal MRA of the head. No demonstrated aneurysm, dissection, stenosis, or occlusion. Electronically Signed: Renetta Diaz MD at 16:09 EST Tel , Service support , Neck MRA 01/24/19 12:20 IMPRESSION: Normal bilateral cervical carotid and vertebral arteries. Electronically Signed: Renetta Diaz MD at 16:15 EST Tel , Service support , Brain MRI 01/24/19 12:30 IMPRESSION: No acute infarct or intracranial hemorrhage. Mild involutional changes of the brain, as described above. Electronically Signed: Andrew Coleman, at 15:29 EST Tel , Service support , Chest X-Ray 01/25/19 09:45 IMPRESSION: Hazy infiltrates at the right lung base may represent atelectasis or pneumonia in the proper clinical setting. Electronically Signed: Andrew Coleman, at 10:46 EST Tel , Service support , Chest X-Ray 01/26/19 09:27 IMPRESSION: Persistent hazy infiltrates at the right lung base may represent aspiration pneumonia. Small right pleural effusion. Electronically Signed: Andrew Coleman, at 10:01 EST Tel , Service support , Chest X-Ray 01/26/19 10:05 IMPRESSION: ET tube as described above. Persistent hazy infiltrates at the right lung base may represent aspiration pneumonia. Electronically Signed: Andrew Coleman, at 11:31 EST Tel , Service support , KUB X-Ray 01/26/19 10:05 IMPRESSION: Enteric tube overlies the stomach. Electronically Signed: Andrew Coleman, at 11:35 EST Tel , Service support , KUB X-Ray 01/26/19 10:46 IMPRESSION: Enteric tube overlies the stomach. Electronically Signed: Andrew Coleman, at 11:41 EST Tel , Service support , Chest X-Ray 01/27/19 06:29 IMPRESSION: Bibasilar pulmonary opacities with mild decrease on the right and mild increase on the left. at 0744 Reported and signed by: Vidhya Tierney MD Electronically Signed: Vidhya Tierney MD at 7:44 EST Tel , Service support , Chest CTA 01/28/19 00:00 IMPRESSION: 1. Small right middle lobe segmental pulmonary emboli. 2. Bilateral lower lobe airspace consolidations and possible atelectasis suggesting pneumonia. 3. 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 4. No CTA demonstrated arterial dissection. N.B. : The above information has been verbally conveyed by Maddie Jeffers MD to RANDY Galvez, on 01/28/2019 09:50:52 (ET). Electronically Signed: Maddie Jeffers MD at 9:55 EST , Service support , ADDENDUM: 01/28/19 1002 IMPRESSION: 1. Small right middle lobe segmental pulmonary emboli. 2. Bilateral lower lobe airspace consolidations and possible atelectasis suggesting pneumonia. 3. 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 4. No CTA demonstrated arterial dissection. N.B. : The above information has been verbally conveyed by Maddie Jeffers MD to RANDY Galvez, on 01/28/2019 09:50:52 (ET). Electronically Signed: Maddie Jeffers MD at 9:55 EST , Service support , KUB X-Ray 02/01/19 09:29 IMPRESSION: Limited study of the abdomen and pelvis which is grossly negative. Electronically Signed: Wesley Mayer, at 10:40 EST Tel , Service support , Chest X-Ray 02/04/19 03:37 IMPRESSION: Right lower lobe consolidation suggestive of infiltrate and/or atelectasis. Lines and tubes as described above. Electronically Signed: Elizabet Aguilar MD at 3:57 EST , Service support , Medical Necessity - Tobacco Use Smoking Status: Current every day smoker Tobacco Use: Cigarettes Assessment/Plan All Active Problems CVA (cerebral vascular accident) (Acute) Slurred speech (Acute) COPD exacerbation (Acute) RECOMMENDATIONS: 1. Continue empiric antimicrobials for an additional 24 hours. Will discontinue tomorrow if cultures are negative. 2. Continue to wean FiO2 to maintain oxygen saturations at or above 90%. 3. Continue bronchodilators and prednisone. 4. Continue tube feeds. 5. Plans for tracheostomy on Tuesday. 6. Hold Lovenox on Tuesday. IMPRESSIONS: 1. Acute on chronic hypoxemic respiratory failure secondary to aspiration pneumonia The patient was emergently transferred to the ICU on the morning of January 26, where he did require intubation due to impending respiratory failure following an aspiration event. The patient did complete a full treatment course of antimicrobials to address the Haemophilus influenza and streptococcal pneumonia isolated from his sputum culture. However, the patient continues to require a high amount of ventilatory support and has frequent issues with mucus plugging. He has been unable to complete a spontaneous breathing trial without failure. The patient has been on the ventilator now for greater than 14 days. ENT is currently following with plans for tracheostomy placement on Tuesday. In the interim, we will plan to continue aggressive bronchopulmonary hygiene, scheduled bronchodilators and steroids. FiO2 will be weaned to maintain an oxygen saturation at or above 90%. PEG tube is already in place and the patient is tolerating tube feeds without issue. 2. Septic shock secondary to presumed aspiration pneumonia As noted above, the patient completed a full treatment course of antibiotics for his underlying pneumonia. His blood pressures have remained stable. However, the patient did spike a fever yesterday. Therefore, repeat blood, urine and sputum cultures were obtained and empiric antimicrobials started. The patient's fever has since resolved. If cultures remain negative tomorrow, antibiotics will be discontinued. 3. COPD with exacerbation Inciting etiology appears to be aspiration event. Continue current supportive measures as noted above along with bronchodilators and steroids. Wean oxygen as tolerated. 4. Pulmonary emboli Identified on CTA chest early in the admission. The patient has been on treatment dose Lovenox. This will need to be held in preparation for possible tracheostomy. 5. Slurred speech Neurology is currently following. Work-up has been unrevealing to date. 6. History of venous thrombi embolic disease/hypertension/hyperlipidemia/seizure disorder/continuous tobacco dependency Complicates care, management, recovery and prognosis. Continue antiepileptics. TIME: 38 minutes of critical care time, independent of procedures, was spent addressing the patient's acute on chronic hypoxemic respiratory failure, septic shock secondary to aspiration pneumonia, COPD with exacerbation, pulmonary emboli, review of all data and collaboration with the care team. ([id number]) Code Visit 9xxxx: [id number] Critical care first hour
--- NOTE | 2019-02-09 10:18 | CASEMGMT ---
RANDY DAVIDSON NOTE: Call placed to Jyoti @ [facility]. She was informed tentative plans are for trach to be placed on Tuesday. She states updated clinicals do not need to be faxed until after trach is placed on Tuesday. Radha BAÑUELOS RN CM
[2019-02-09] MEDS: TITRATION PARAMETER CHANGE 1 EACH IV (10:33)
[2019-02-09] MEDS: Propofol 10MG/Ml 1,000 MG/100 ML Bottle 8.7 MG CONT INF ×2 (10:34→17:51)
[2019-02-09] MEDS: Chlorhexidine 15 ML PO ×2 (10:37→21:32)
[2019-02-09] MEDS: CHLORHEXIDINE GLUC 2% CLOTH 1 EACH TOWELETTE TOPICAL (10:37)
[2019-02-09] MEDS: Lansoprazole 15 MG Capsule.DR 30 MG GT (10:43)
[2019-02-09] MEDS: Polyethylene Glycol 3350 17 GM PACKET GT ×2 (10:44→21:32)
[2019-02-09] MEDS: Senna/Docusate Sodium 1 Tablet 2 TABLET GT ×2 (10:44→21:31)
[2019-02-09] MEDS: predniSONE 20 MG Tablet GT (10:44)
[2019-02-09] MEDS: Enoxaparin 100 MG/ML Syringe SC ×2 (10:57→21:31)
[2019-02-09] MEDS: fentaNYL drip 100 ML 15 MCG IV ×2 (12:00→19:38)
[2019-02-09 12:11] LABS: CPK Total, Creatine Kinase 263 U/L (39-308); Triglycerides 105 mg/dL
[2019-02-09 12:35] LABS: Bedside Glucose 92 mg/dL (70-110)
[2019-02-09] MEDS: Vital AF 1.2 Cal Liquid 1,000 ML 60 ML GT (13:33)
[2019-02-09 15:42] LABS: ACHR AB Modulating <12 % (0-20); ACHR Recep AB, Blocking 19 % (0-25)
--- NOTE | 2019-02-09 17:12 | PCM.PN.BLA ---
Progress Note History of Present Illness: The patient is a 63-year-old male, with a history as outlined below, who presented to the emergency department on January 23 with complaints of shortness of breath and slurred speech. The patient has a history of COPD (follows with Dr. 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 The patient received aerosol treatments, IV steroids and was admitted to the progressive care unit for further management. Although the patient was maintained on bronchodilators and steroids, antibiotics were not initiated, as there was little overall concern for an underlying pulmonary infectious process. Over concerns for the patient slurred speech, neurology consultation was placed. Brain MRI, however, was largely unremarkable. A surface echocardiogram was also obtained and revealed normal LV size with an ejection fraction of 65% and stage I diastolic dysfunction. The RV was noted to be moderately dilated. On the morning of January 26, the patient apparently experienced a venkat aspiration event while eating breakfast. He subsequently went on to develop a significant amount of respiratory distress. Attempts to utilize noninvasive positive pressure ventilatory support was limited by the fact that the patient developed nausea and vomiting. The patient was then intubated and has remained so. He is unable to be weaned from the ventilator and according to the Critical care team extubation would be futile. Past Medical History Past Medical History (Chronic Problems): Chronic Problems Chronic respiratory failure with hypoxia (Chronic) Tobacco use (Chronic) HTN (hypertension) (Chronic) HLD (hyperlipidemia) (Chronic) Ulcer of right lower extremity with fat layer exposed (Chronic) Lower extremity edema (Chronic) History of DVT (deep vein thrombosis) (Chronic) History of pulmonary embolism (Chronic) Seizure disorder (Chronic) COPD (chronic obstructive pulmonary disease) (Chronic) Allergies No Known Allergies Allergy (Verified 01/23/19 17:51) Home Medications: Ambulatory Orders Medication Instructions Recorded Gabapentin [Neurontin] 300 mg PO TID 05/28/16 Potassium Chloride [K-Dur] 10 meq PO TID 05/28/16 Nitroglycerin (INPATIENT USE) 0.4 mg SUBLINGUAL Q5M PRN 12/12/17 [Nitrostat] Furosemide [Lasix] 40 mg PO BREAKFAST 04/29/18 Divalproex Sodium [Depakote ER] 1,000 mg PO QHS 05/02/18 Divalproex Sodium [Depakote ER] 500 mg PO 0700,1300 05/02/18 Pravastatin Sodium 40 mg PO QHS 05/02/18 Acetaminophen [Tylenol Tablet] 650 mg PO Q6H PRN PRN tablet 05/10/18 Guaifenesin [Mucinex] 600 mg PO BID 07/15/18 Furosemide [Lasix] 20 mg PO LUNCH 01/04/19 Mometasone/Formoterol [Dulera 200 1 puff IH BID 01/04/19 Mcg/5 Mcg Inhaler] Warfarin [Coumadin] 5 mg PO SUTUWETHSA 01/04/19 Albuterol Inhaler [Ventolin Hfa] 2 puff INHALATION Q4H PRN PRN #0 01/09/19 Ipratropium/Albuterol Sulfate 3 ml INHALATION Q4H PRN PRN #30 01/09/19 [Duoneb] ampul.neb Cholecalciferol (Vitamin D3) 50,000 unit PO MO 01/23/19 [Vitamin D] Warfarin Sodium 2.5 mg PO MOFR 01/23/19 Surgical History: appendectomy, - - Liver biopsy. Psychiatric History: No pertinent psych hx Lives: With Family - Patient lives with his fianc?e as well as her family. Smoking Status: Former smoker Tobacco Use: Cigarettes Alcohol: None Drugs: None - *Family History Maternal History Items: COPD, Heart Disease Paternal History Items: Unknown - Does not know his paternal medical history. Review of Systems Unable to obtain accurate/complete ROS d/t: Due to current intubation and mechanical ventilation status Objective: Intubated and sedated on fentanyl and propofol He nods his head inappropriately to commands and appears to be communicating with someone when no one is actually there. ETT in place FiO2 = 50% PEEP= 5 SAO2 92% Neck- no masses. The thryoid cartilage is palpable above the sternal notch. The cricoid is not palpable. A: Respiratory Failure secondary to aspiration pneumonia Prolonged ventilation with an inability to be extubated P: In order to advance his care, and give him the best chance of coming off of the ventilator while avoiding complications of prolonged intubation (vocal cord paralysis, subglottic stenosis, pneumonia from mechanical ventilation) I have placed the patient on the OR schedule for tracheotomy. Tracheotomy is not without risks, however, he has no other options at this point. He will need to have his lovenox held prior to the procedure (hold on 02/11). The procedure is scheduled for 02/12/19. STROKE Vital Signs/Narrative: Vital Signs Pulse Resp BP Pulse Ox 02/09/19 16:00 79 18 97/51 L 100 02/09/19 15:04 81 02/09/19 15:00 84 16 93/56 L 96 02/09/19 14:51 78 17 02/09/19 14:46 81 19 H 96 02/09/19 14:00 80 16 88/48 L 95
[2019-02-09 17:20] LABS: Bedside Glucose 134 mg/dL (70-110)
[2019-02-09] MEDS: Atorvastatin Calcium 80 MG Tablet GT (21:31)
[2019-02-10] VITALS (39 sets, daily range): BP systolic 85–108; BP diastolic 47–71; PULSE 50–85; RESP 12–19; TEMP 36.6–37.8; O2SAT 88–100
[2019-02-10] MEDS: guaiFENesin 10 ML UDC (200MG/10ML) GT ×4 (00:01→17:37)
[2019-02-10] MEDS: Propofol 10MG/Ml 1,000 MG/100 ML Bottle 11.6 MG CONT INF (02:30)
[2019-02-10 02:36] LABS: Bedside Glucose 97 mg/dL (70-110)
[2019-02-10] MEDS: fentaNYL drip 100 ML 15 MCG IV ×3 (02:45→18:30)
[2019-02-10] MEDS: Ipratropium/Albuterol Sulfate 3 ML AMPUL.NEB INHALATION ×5 (03:40→18:12)
[2019-02-10 04:04] LABS: Absolute Lymphocyte Count 1.41 X10^3/uL (0.83-4.51); Absolute Neutrophil Count 2.9 X10^3/uL (2.0-7.7); Basophil# 0.01 X10^3/uL; Basophil% 0.2 % (0-1); Eosinophil# 0.04 X10^3/uL; Eosinophils% 0.9 % (0-5); Hematocrit 29.9 % (40-54); Hemoglobin 9.6 g/dL (13.0-16.5); Lymphocyte # 1.41 X10^3/ul (4.0); Lymphocyte % 30.1 % (19-41); Mean Corp Hgb Conc 32.1 g/dL (32-36); Mean Corpuscular Hgb 34.3 pg (27.0-32.0); Mean Corpuscular Volume 106.8 fL (80-94); Mean Platelet Vol. 10.4 fl (6.2-12.0); Monocyte# 0.35 X10^3/uL; Monocyte% 7.5 % (0-10); NRBC Flagged by Analyzer 0 % (0-5); Neutrophil # 2.85 X10^3/uL (2.7-7.7); Neutrophil % 60.7 % (47-70); Platelet Count 133 K/mm3 (150-450); RBC Distribution Width CV 15.2 % (11.6-14.6); RBC Distribution Width SD 59.3 fl (35.1-43.9); White Blood Count 4.7 K/mm3 (4.4-11.0)
[2019-02-10 04:22] LABS: ALB/GLOB Ratio 0.5 RATIO (0.9-2.4); AST(SGOT) 29 U/L (15-37); Alanine Aminotransfer ALT/SGPT 19 U/L (16-61); Albumin, Serum 1.9 g/dL (3.2-5.0); Alkaline Phosphatase 64 U/L (45-117); Anion Gap 2 (5-15); BUN 12 mg/dL (7-18); Calcium,Total 8.3 mg/dL (8.5-10.1); Chloride 100 mmol/L (98-107); Creatinine, Serum 0.27 mg/dL (0.70-1.30); EST Glomerular Filtration Rate 361 mL/min (>60); Est Glom Filt Rate - Afr Amer 436 mL/min (>60); Estimated Creatinine Clearance 287.31 ml/min; Globulin 3.8 g/dL (2.2-4.2); Glucose 100 mg/dL (74-106); Potassium 3.4 mmol/L (3.5-5.1); Protein, Total 5.7 g/dL (6.4-8.2); Sodium Level 139 mmol/L (136-145)
[2019-02-10] MEDS: Gabapentin 300 MG Capsule GT ×3 (05:17→21:10)
--- NOTE | 2019-02-10 06:38 | PN_ITS ---
Subjective: The patient was seen and examined at the bedside this morning. Events from the last 24 hours have been reviewed. The patient is currently afebrile, hemodynamically stable and maintaining appropriate oxygen saturations on assist control mode of mechanical ventilation with an FiO2 requirement of 45%. The patient desaturated this morning with his spontaneous awakening trial. He is currently documented to be overall net +12.9 L for the admission. Blood counts are stable. Potassium is low this morning at 3.4. Objective: The patient's most recent lab work, culture data and imaging studies have all been personally reviewed. Sputum culture dated January 26 was positive for both Haemophilus influenza and Streptococcus pneumoniae. General: - - Remains intubated, sedated and mechanically ventilated. HEENT: Atraumatic, PERRLA, Normocephalic Oral: No Gingival or Mucosal Lesions/ Ulcerations, - - Endotracheal tube remains in place. Neck: Supple, No Nodes, Trachea Midline Lungs: No rhonchi, No wheeze, No rales, Diminished Cardiovascular: Regular rate, Regular Rhythm, Normal S1, Normal S2, No murmurs Abdomen: Bowel Sounds Present, Soft, Non Tender, - - PEG site is C/D/I Extremities: No cyanosis, Clubbing, Edema Skin: - - No interval change noted. Musculoskeletal: No Muscle Wasting Lymphatic: No Cervical, Supraclavicular, or Inguinal Adenopathy Neurological: - - No focal neurological deficits. Currently sedated. Vital Signs Temp Pulse Resp BP Pulse Ox 98.8 F 68 17 97/53 L 93 02/10/19 06:00 02/10/19 06:00 02/10/19 06:00 02/10/19 06:00 02/10/19 06:00 Oxygen Flow Rate (L/min) 4 Oxygen Delivery Method Mechanical Ventilator Weight: 216 lb 14.958 oz Body Mass Index (BMI) 31.9 Intake and Output for Last 24 Hours 02/08/19 02/09/19 02/10/19 23:59 23:59 23:59 Intake Total 2905.03 / 2965.03 2247.39 / 2668.39 989.16 / 989.16 Output Total 1900 / 1900 825 / 1225 900 / 900 Balance 1005.03 / 1065.03 1422.39 / 1443.39 89.16 / 89.16 Labs (Last 48 Hours) 01/26/19 01/26/19 02/08/19 06:45 10:24 04:35 WBC RBC Hgb Hct MCV MCH MCHC RDW Std Deviation RDW Coeff of Mohsen Plt Count MPV Immature Gran % (Auto) Neut % (Auto) Lymph % (Auto) [place] % (Auto) Eos % (Auto) Baso % (Auto) Absolute Neuts (auto) Absolute Lymphs (auto) Nucleated RBC % Sodium Potassium Chloride Carbon Dioxide Anion Gap BUN Creatinine Estim Creat Clear Calc Est GFR (MDRD) Af Amer Est GFR (MDRD) Non-Af BUN/Creatinine Ratio Glucose Calcium Total Bilirubin AST ALT Alkaline Phosphatase Total Creatine Kinase Total Protein Albumin Globulin Albumin/Globulin Ratio Triglycerides Whole Bld Vitamin B1 Cancelled Pending Acetylchol Rcpt Block Ab 19 Acetylchol Rcpt Modu Ab <12 POC Glucose 02/08/19 02/08/19 02/08/19 11:48 17:45 23:17 WBC RBC Hgb Hct MCV MCH MCHC RDW Std Deviation RDW Coeff of [place] Plt Count MPV Immature Gran % (Auto) Neut % (Auto) Lymph % (Auto) [place] % (Auto) Eos % (Auto) Baso % (Auto) Absolute Neuts (auto) Absolute Lymphs (auto) Nucleated RBC % Sodium Potassium Chloride Carbon Dioxide Anion Gap BUN Creatinine Estim Creat Clear Calc Est GFR (MDRD) Af Amer Est GFR (MDRD) Non-Af BUN/Creatinine Ratio Glucose Calcium Total Bilirubin AST ALT Alkaline Phosphatase Total Creatine Kinase Total Protein Albumin Globulin Albumin/Globulin Ratio Triglycerides Whole Bld Vitamin B1 Acetylchol Rcpt Block Ab Acetylchol Rcpt Modu Ab POC Glucose 109 150 H 98 02/09/19 02/09/19 02/09/19 04:10 04:10 04:10 WBC 5.4 RBC 2.94 L Hgb 10.0 L Hct 31.1 L MCV 105.8 H MCH 34.0 H MCHC 32.2 RDW Std Deviation 57.2 H RDW Coeff of [place]sen 15.0 H Plt Count 133 L MPV 10.2 Immature Gran % (Auto) 0.700 Neut % (Auto) 67.3 Lymph % (Auto) 24.3 [place] % (Auto) 7.1 Eos % (Auto) 0.4 Baso % (Auto) 0.2 Absolute Neuts (auto) 3.6 Absolute Lymphs (auto) 1.31 Nucleated RBC % 0 Sodium 139 Potassium 3.5 Chloride 99 Carbon Dioxide 39.0 H Anion Gap 1 L BUN 14 Creatinine 0.31 L Estim Creat Clear Calc 250.24 Est GFR (MDRD) Af Amer 374 Est GFR (MDRD) Non-Af 309 BUN/Creatinine Ratio 44.9 H Glucose 100 Calcium 8.4 L Total Bilirubin 0.40 AST 29 ALT 18 Alkaline Phosphatase 63 Total Creatine Kinase 263 Total Protein 5.8 L Albumin 2.0 L Globulin 3.8 Albumin/Globulin Ratio 0.5 L Triglycerides 105 Whole Bld Vitamin B1 Acetylchol Rcpt Block Ab Acetylchol Rcpt Modu Ab POC Glucose 02/09/19 02/09/19 02/09/19 05:34 12:28 17:08 WBC RBC Hgb Hct MCV MCH MCHC RDW Std Deviation RDW Coeff of [place] Plt Count MPV Immature Gran % (Auto) Neut % (Auto) Lymph % (Auto) [place] % (Auto) Eos % (Auto) Baso % (Auto) Absolute Neuts (auto) Absolute Lymphs (auto) Nucleated RBC % Sodium Potassium Chloride Carbon Dioxide Anion Gap BUN Creatinine Estim Creat Clear Calc Est GFR (MDRD) Af Amer Est GFR (MDRD) Non-Af BUN/Creatinine Ratio Glucose Calcium Total Bilirubin AST ALT Alkaline Phosphatase Total Creatine Kinase Total Protein Albumin Globulin Albumin/Globulin Ratio Triglycerides Whole Bld Vitamin B1 Acetylchol Rcpt Block Ab Acetylchol Rcpt Modu Ab POC Glucose 113 H 92 134 H 02/09/19 02/10/19 02/10/19 23:59 03:55 03:55 WBC 4.7 RBC 2.80 L Hgb 9.6 L Hct 29.9 L MCV 106.8 H MCH 34.3 H MCHC 32.1 RDW Std Deviation 59.3 H RDW Coeff of [place]sen 15.2 H Plt Count 133 L MPV 10.4 Immature Gran % (Auto) 0.600 Neut % (Auto) 60.7 Lymph % (Auto) 30.1 [place] % (Auto) 7.5 Eos % (Auto) 0.9 Baso % (Auto) 0.2 Absolute Neuts (auto) 2.9 Absolute Lymphs (auto) 1.41 Nucleated RBC % 0 Sodium 139 Potassium 3.4 L Chloride 100 Carbon Dioxide 37.0 H Anion Gap 2 L BUN 12 Creatinine 0.27 L Estim Creat Clear Calc 287.31 Est GFR (MDRD) Af Amer 436 Est GFR (MDRD) Non-Af 361 BUN/Creatinine Ratio 44.0 H Glucose 100 Calcium 8.3 L Total Bilirubin 0.40 AST 29 ALT 19 Alkaline Phosphatase 64 Total Creatine Kinase Total Protein 5.7 L Albumin 1.9 L Globulin 3.8 Albumin/Globulin Ratio 0.5 L Triglycerides Whole Bld Vitamin B1 Acetylchol Rcpt Block Ab Acetylchol Rcpt Modu Ab POC Glucose 97 Microbiology 02/08/19 11:35 Sputum, Induced/Lukens Gram Stain - Final 02/08/19 11:35 Sputum, Induced/Lukens Respiratory Culture - Preliminary Culture exhibits no growth. Clinical Impression(s) from Imaging Studies Brain CT 01/23/19 18:35 IMPRESSION: Chronic involutional changes of the brain. Electronically Signed: Ford Craig MD at 19:28 EST , Service support , Chest X-Ray 01/23/19 18:37 IMPRESSION: Calcified plaques of the thoracic aorta. Multiple old bilateral rib fractures. No acute cardiopulmonary disease process is seen. Electronically Signed: Ford Craig MD at 18:56 EST , Service support , Head MRA 01/24/19 12:20 IMPRESSION: Normal MRA of the head. No demonstrated aneurysm, dissection, stenosis, or occlusion. Electronically Signed: Renetta Diaz MD at 16:09 EST Tel , Service support , Neck MRA 01/24/19 12:20 IMPRESSION: Normal bilateral cervical carotid and vertebral arteries. Electronically Signed: Renetta Diaz MD at 16:15 EST Tel , Service support , Brain MRI 01/24/19 12:30 IMPRESSION: No acute infarct or intracranial hemorrhage. Mild involutional changes of the brain, as described above. Electronically Signed: Andrew Coleman, at 15:29 EST Tel , Service support , Chest X-Ray 01/25/19 09:45 IMPRESSION: Hazy infiltrates at the right lung base may represent atelectasis or pneumonia in the proper clinical setting. Electronically Signed: Andrew Coleman, at 10:46 EST Tel , Service support , Chest X-Ray 01/26/19 09:27 IMPRESSION: Persistent hazy infiltrates at the right lung base may represent aspiration pneumonia. Small right pleural effusion. Electronically Signed: Andrew Coleman, at 10:01 EST Tel , Service support , Chest X-Ray 01/26/19 10:05 IMPRESSION: ET tube as described above. Persistent hazy infiltrates at the right lung base may represent aspiration pneumonia. Electronically Signed: Andrew Coleman, at 11:31 EST Tel , Service support , KUB X-Ray 01/26/19 10:05 IMPRESSION: Enteric tube overlies the stomach. Electronically Signed: Andrew Travonshona, at 11:35 EST Tel , Service support , KUB X-Ray 01/26/19 10:46 IMPRESSION: Enteric tube overlies the stomach. Electronically Signed: Andrew Jared, at 11:41 EST Tel , Service support , Chest X-Ray 01/27/19 06:29 IMPRESSION: Bibasilar pulmonary opacities with mild decrease on the right and mild increase on the left. at 0744 Reported and signed by: Vidhya Tierney MD Electronically Signed: Vidhya Tierney MD at 7:44 EST Tel , Service support , Chest CTA 01/28/19 00:00 IMPRESSION: 1. Small right middle lobe segmental pulmonary emboli. 2. Bilateral lower lobe airspace consolidations and possible atelectasis suggesting pneumonia. 3. 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 4. No CTA demonstrated arterial dissection. N.B. : The above information has been verbally conveyed by Maddie Jeffers MD to RANDY Galvez, on 01/28/2019 09:50:52 (ET). Electronically Signed: Maddie Jeffers MD at 9:55 EST , Service support , ADDENDUM: 01/28/19 1002 IMPRESSION: 1. Small right middle lobe segmental pulmonary emboli. 2. Bilateral lower lobe airspace consolidations and possible atelectasis suggesting pneumonia. 3. 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 4. No CTA demonstrated arterial dissection. N.B. : The above information has been verbally conveyed by Maddie Jeffers MD to RANDY Galvez, on 01/28/2019 09:50:52 (ET). Electronically Signed: Maddie Jeffers MD at 9:55 EST , Service support , KUB X-Ray 02/01/19 09:29 IMPRESSION: Limited study of the abdomen and pelvis which is grossly negative. Electronically Signed: Wesley Mayer, at 10:40 EST Tel , Service support , Chest X-Ray 02/04/19 03:37 IMPRESSION: Right lower lobe consolidation suggestive of infiltrate and/or atelectasis. Lines and tubes as described above. Electronically Signed: Elizabet Aguilar MD at 3:57 EST , Service support , Medical Necessity - Tobacco Use Smoking Status: Current every day smoker Tobacco Use: Cigarettes Assessment/Plan All Active Problems CVA (cerebral vascular accident) (Acute) Slurred speech (Acute) COPD exacerbation (Acute) RECOMMENDATIONS: 1. Empiric antimicrobials can be discontinued this morning, as repeat infectious work-up has been unrevealing. 2. Continue to wean FiO2 to maintain oxygen saturations at or above 90%. 3. Continue bronchodilators and prednisone. 4. Continue tube feeds. 5. Administer Lasix today. 6. Plans for tracheostomy on Tuesday. 7. Hold Lovenox on Tuesday. 8. Electrolyte repletion as ordered. IMPRESSIONS: 1. Acute on chronic hypoxemic respiratory failure secondary to aspiration pneumonia The patient was emergently transferred to the ICU on the morning of January 26, where he did require intubation due to impending respiratory failure following an aspiration event. The patient did complete a full treatment course of antimicrobials to address the Haemophilus influenza and streptococcal pneumonia isolated from his sputum culture. However, the patient continues to require a high amount of ventilatory support and has frequent issues with mucus plugging. He has been unable to complete a spontaneous breathing trial without failure. The patient has been on the ventilator now for greater than 14 days. ENT is currently following with plans for tracheostomy placement on Tuesday. In the interim, we will plan to continue aggressive bronchopulmonary hygiene, scheduled bronchodilators and steroids. FiO2 will be weaned to maintain an oxygen saturation at or above 90%. PEG tube is already in place and the patient is tolerating tube feeds without issue. 2. Septic shock secondary to presumed aspiration pneumonia As noted above, the patient completed a full treatment course of antibiotics for his underlying pneumonia. His blood pressures have remained stable. However, the patient did spike a fever yesterday. Therefore, repeat blood, urine and sputum cultures were obtained and empiric antimicrobials started. The patient's fever has since resolved. Given that repeat cultures have not shown any growth to date, antibiotics will be discontinued. 3. COPD with exacerbation Inciting etiology appears to be aspiration event. Continue current supportive measures as noted above along with bronchodilators and steroids. Wean oxygen as tolerated. 4. Pulmonary emboli Identified on CTA chest early in the admission. The patient has been on treatment dose Lovenox. This will need to be held in preparation for possible tracheostomy. 5. Slurred speech Neurology is currently following. Work-up has been unrevealing to date. 6. History of venous thrombi embolic disease/hypertension/hyperlipidemia/seizure disorder/continuous tobacco dependency Complicates care, management, recovery and prognosis. Continue antiepileptics. TIME: 35 minutes of critical care time, independent of procedures, was spent addressing the patient's acute on chronic hypoxemic respiratory failure, septic shock secondary to aspiration pneumonia, COPD with exacerbation, pulmonary emboli, review of all data and collaboration with the care team. ([id number]) Code Visit [id number]: [id number] Critical care first hour
[2019-02-10] MEDS: TITRATION PARAMETER CHANGE 1 EACH IV (06:39)
[2019-02-10 07:01] LABS: Bedside Glucose 87 mg/dL (70-110)
--- NOTE | 2019-02-10 08:18 | PN_ITS ---
Patient Problems: Active and Suspected Problems CVA (cerebral vascular accident) (Acute) Slurred speech (Acute) Subjective: Patient with no acute events per self and per nursing report. Patient is alert this morning and answering questions although to some of the nursing questions he does not seem to understand or answers unexpectedly, remains afebrile, pending cultures with no growth on urine, sputum or blood as had had fevers during the week but this seems to have resolved, maintained oxygenation on current FiO2, given weight increase recently was administered diuresis, failed spontaneous awakening trial again as expected. Patient evaluated per Dr. Becerril, ENT with planned 02/12/2019 trach placement. Following this LTAC will need to be set up. Patient remains amenable to this plan. Patient denies fevers, chills, nausea, emesis, abdominal pain, chest pain or dyspnea. Objective: Physical Examination: General: Intubated, alert today, sedation currently decreased, nodding head to questions sometimes inappropriately, no obvious distress, seated upright in the ICU bed. Skin: normal color, turgor, no icterus, cyanosis. HEENT: AT/NC, EOMI, PERRLA, mildly dry MM, intubated. Lungs: Bilaterally diminished breath sounds, greater bases, intubated, symmetric rise, no current obvious rales, ronchi or wheezing. Heart: Regular rate and rhythm; no gallop, rub audible. Abdomen: soft, obese, NTTP, ND, normal BS. Extremities: no cyanosis, clubbing, BL UE and LE edema decreased, recent diuresis, had been increased the day prior with 2+ pitting, now resolved upper extremities, still 1+ bilateral lower extremities but improving. Neurological: Intubated, more alert today, nodding head to questions, no obvious distress, seated upright in the ICU bed; cognitive function not baseline intact; pupils equally reactive to light and accomodation; cranial nerves unable to be assessed appear intact but given current mildly sedated, intubated status incomplete, strength remains severely global decreased given current presentation. Psychiatric: affect appears more alert, interactive, no acute evidence of depressive or anxiety feelings. Vitals/I&O's: Vital Signs Temp Pulse Resp BP Pulse Ox 98.8 F 79 19 H 97/53 L 93 02/10/19 06:00 02/10/19 07:33 02/10/19 06:54 02/10/19 06:00 02/10/19 06:54 Oxygen Flow Rate (L/min) 4 Oxygen Delivery Method Mechanical Ventilator Weight: 216 lb 14.958 oz Body Mass Index (BMI) 31.9 Intake and Output for Last 24 Hours 02/08/19 02/09/19 02/10/19 23:59 23:59 23:59 Intake Total 2905.03 / 2965.03 2247.39 / 2668.39 1013.90 / 1013.90 Output Total 1900 / 1900 825 / 1225 900 / 900 Balance 1005.03 / 1065.03 1422.39 / 1443.39 113.90 / 113.90 Microbiology Past 72 Hours 02/08/19 09:30 Urine Catheter - [place] Urine Culture - Final Culture exhibits no growth. 02/08/19 11:35 Sputum, Induced/[place] Gram Stain - Final 02/08/19 11:35 Sputum, Induced/[place] Respiratory Culture - Final Culture exhibits no growth. Laboratory Results 01/26/19 10:24: Acetylchol Rcpt Block Ab 19, Acetylchol Rcpt Modu Ab <12 02/09/19 04:10: Total Creatine Kinase 263, Triglycerides 105 02/09/19 12:28: POC Glucose 92 02/09/19 17:08: POC Glucose 134 H 02/09/19 23:59: POC Glucose 97 02/10/19 03:55: WBC 4.7, RBC 2.80 L, Hgb 9.6 L, Hct 29.9 L, MCV 106.8 H, MCH 34.3 H, MCHC 32.1, RDW Std Deviation 59.3 H, RDW Coeff of Mohsen 15.2 H, Plt Count 133 L, MPV 10.4, Immature Gran % (Auto) 0.600, Neut % (Auto) 60.7, Lymph % (Auto) 30.1, [place] % (Auto) 7.5, Eos % (Auto) 0.9, Baso % (Auto) 0.2, Absolute Neuts (auto) 2.9, Absolute Lymphs (auto) 1.41, Nucleated RBC % 0 02/10/19 03:55: Sodium 139, Potassium 3.4 L, Chloride 100, Carbon Dioxide 37.0 H , Anion Gap 2 L, BUN 12, Creatinine 0.27 L, Estim Creat Clear Calc 287.31, Est GFR (MDRD) Af Amer 436, Est GFR (MDRD) Non-Af 361, BUN/Creatinine Ratio 44.0 H, Glucose 100, Calcium 8.3 L, Total Bilirubin 0.40, AST 29, ALT 19, Alkaline Phosphatase 64, Total Protein 5.7 L, Albumin 1.9 L, Globulin 3.8, Albumin/[place] bulin Ratio 0.5 L 02/10/19 05:18: POC Glucose 87 Current Medications Acetaminophen (Tylenol) 650 mg PO Q6H PRN PRN PRN Reason: Non-cardiac pain (-12/14) Last Admin: 01/25/19 15:13 Dose: 650 mg Documented by: Acetaminophen (Tylenol Liquid) 650 mg GT Q6H PRN PRN PRN Reason: TEMP>101 Last Admin: 02/08/19 11:50 Dose: 650 mg Documented by: Al Hydroxide/Mg Hydroxide (Mylanta Ii) 15 - 30 ml PO Q4H PRN PRN PRN Reason: INDIGESTION Albuterol Sulfate (Ventolin Aerosols) 2.5 mg INHALATION Q2H PRN PRN PRN Reason: dyspnea, wheezing Last Admin: 01/26/19 09:26 Dose: 2.5 mg Documented by: Albuterol/Ipratropium (Duoneb) 3 ml INHALATION Q4HWA.RT [facility] Last Admin: 02/10/19 06:54 Dose: 3 ml Documented by: Atorvastatin Calcium (Lipitor) 80 mg GT QHS [facility] Last Admin: 02/09/19 21:31 Dose: 80 mg Documented by: Chlorhexidine Gluconate () 15 ml PO BID [facility] Last Admin: 02/09/19 21:32 Dose: 15 ml Documented by: Chlorhexidine Gluconate () 1 each TOPICAL DAILY [facility] Last Admin: 02/09/19 10:37 Dose: 1 each Documented by: Dextrose (D50w Syringe) 0 gm IV X1 PRN; Protocol PRN Reason: Hypoglycemia Divalproex Sodium (Depakote Er) 500 mg PO 0700,1300 [facility] Last Admin: 01/26/19 13:30 Dose: Not Given Documented by: Divalproex Sodium (Depakote Er) 1,000 mg PO QHS [facility] Last Admin: 01/25/19 21:41 Dose: 1,000 mg Documented by: Enoxaparin Sodium (Lovenox) 100 mg SC Q12 [facility] Stop: 02/10/19 22:01 Last Admin: 02/09/19 21:31 Dose: 100 mg Documented by: Gabapentin (Neurontin) 300 mg GT TID [facility] Last Admin: 02/10/19 05:17 Dose: 300 mg Documented by: Glucagon () 1 mg IM .X1 PRN PRN Reason: Hypoglycemia Guaifenesin (Robitussin) 10 ml GT Q6H PRN Guaifenesin (Robitussin) 10 ml GT Q6H [facility] Last Admin: 02/10/19 05:17 Dose: 10 ml Documented by: Sodium Chloride () 250 mls @ 15 mls/hr IV .[id number] PRN PRN Reason: Saline Flush Last Infusion: 02/09/19 11:31 Dose: Infused Documented by: Enteral Nutritional Formula (Vital Af 1.2 Truong Liquid) 1,000 mls @ 60 mls/hr GT .[id number] [facility] Last Admin: 02/10/19 04:38 Dose: Not Given Documented by: Fentanyl () 100 mls @ 15 mls/hr IV UD [facility]; Protocol Last Titration: 02/10/19 07:30 Dose: 125 mcg/hr, 12.5 mls/hr Documented by: Propofol (Diprivan) 1,000 mg in 100 mls @ 17.712 mls/hr CONT INF .Q5H39M [facility]; Protocol Last Titration: 02/10/19 07:45 Dose: 15 mcg/kg/min, 8.9 mls/hr Documented by: Potassium Chloride 40 meq/ (Sodium Chloride) 120 mls @ 100 mls/hr IV BOLUS X1 ONE Stop: 02/10/19 08:44 Insulin Human Lispro (Humalog Kwikpen (Bkc)) 0 unit SC Q6 [facility]; Protocol Last Admin: 02/10/19 05:18 Dose: Not Given Documented by: Lansoprazole (Lansoprazole) 30 mg GT DAILY [facility] Last Admin: 02/09/19 10:43 Dose: 30 mg Documented by: Magnesium Hydroxide (Milk Of Magnesia) 30 ml GT DAILY PRN PRN Reason: Constipation Last Admin: 01/30/19 09:33 Dose: 30 ml Documented by: Nicotine (Nicoderm Cq (Pbkc)) 21 mg TRANSDERM. DAILY [facility] Last Admin: 02/09/19 10:43 Dose: 21 mg Documented by: Nitroglycerin (Nitrostat) 0.4 mg SUBLINGUAL Q5M PRN PRN Reason: CARDIAC/CHEST PAIN Ondansetron HCl (Zofran) 4 mg IV Q8H PRN PRN PRN Reason: NAUSEA/VOMITING Polyethylene Glycol (Miralax) 17 gm GT BID [facility] Last Admin: 02/09/19 21:32 Dose: 17 gm Documented by: Prednisone () 10 mg GT DAILY@0800 [facility] Senna/Docusate Sodium (Senokot-S, Lila-Colace) 2 tablet GT BID [facility] Last Admin: 02/09/19 21:31 Dose: 2 tablet Documented by: Sodium Chloride () 10 - 40 ml IV UD PRN PRN Reason: SALINE FLUSH Last Admin: 02/08/19 11:54 Dose: 20 ml Documented by: Throat Lozenges (Cepacol Sore Throat Lozenge) 1 lozenge MUCOUS MEM Q2H PRN PRN PRN Reason: COUGH Valproic Acid (Depakene) 500 mg GT 4X/DAY [facility] Last Admin: 02/09/19 21:31 Dose: 500 mg Documented by: STROKE Vital Signs/Narrative: Vital Signs Temp Pulse Resp BP Pulse Ox 02/10/19 07:33 79 02/10/19 06:54 67 17 93 02/10/19 06:00 98.8 F 68 17 97/53 L 93 02/10/19 05:00 98.9 F 79 19 H 105/65 88 Medical Necessity - Tobacco Use Smoking Status: Current every day smoker Tobacco Use: Cigarettes Assessment/Plan All Active Problems CVA (cerebral vascular accident) (Acute) Slurred speech (Acute) COPD exacerbation (Acute) The patient is a 63 y/o M w/ PMHx: Chronic COPD w/ Chronic Hypoxic Respiratory Failure (4-5L NC) following w/ [facility] Pulmonary, Obesity, HTN, HLD, Depression and Anxiety, Hx DVT/PE on coumadin, Seizure disorder, Tobacco use ongoing who presents to the [facility] ED on 01/23/19 with history of 2 to 3 days of progressively worsening fatigue, weakness generally, dyspnea worse with exertion with mildly productive cough of yellow-shields sputum with ongoing wheezing x 2 days. 1. Acute Septic Shock secondary to Acute on Chronic Hypoxic Respiratory Failure secondary to Acute on chronic COPD exacerbation and Aspiration Pneumonia as well as Haemophilus Influenzae and Streptococcal Pneumonia: Initial ED evaluation with chest x-ray with chronic changes with CBC with no market WBC elevation and maintained on oxygen supplementation however clinically worsened and required transition to the ICU with intubation, sedation with negative blood cultures, sputum cultures with Haemophilus influenza and Streptococcus pneumonia, maintained on IV Unasyn x 10-day course of antibiotic therapy, treated on ATC duoneb, PRN albuterol, IV Solu-Medrol transitioned to prednisone taper, aggressive IV fluid administration given concurrent septic shock treated initially with Levophed, transitioned off, still serially failed spontaneous breathing trials. Intermittent pulse lasix usage given weight slow increase, edema. 02/06/19 PEG tube per General Surgery with tube feed initiation and continued toleration at goal. 02/07/19-02/08/19 F, pending UCx, Bld Cx, Sputum per ICU physician direction, not growth to date, afebrile since. Dr. Becerril consulted, planned trach 02/12/19. 2. Acute Pulmonary Embolism: CT chest with small segmental right-sided PE with history of prior PE and DVT, could initially transition to Eliquis secondary to crush reaction with Coumadin and Depakote, transitioned to therapeutic Lovenox. 3. Hypertension: Regimen held upon admission given #1, BP low normal, remains off pressor therapy, PRN agents as needed but baseline SBP < 110. 4. Hyperlipidemia: Continue on high-dose statin therapy. 5. History of DVT/PE: Upon admission position from Coumadin to Eliquis secondary to cross-reactivity of medications, given acute presentation with #1, #2 transitioned to therapeutic Lovenox. 6. Obesity: Weight loss and lifestyle changes encouraged, nutrition consulted. 7. Seizure disorder: Continued on Depakote regimen. 8. Tobacco Abuse: Encouraged upon admission cessation, inpatient consultation per RT if clinically becomes appropriate given #1, NR if desired. 9. GERD: Famotidine. 10. Microcytic anemia: Hemoglobin 14.4 however repeat 01/24/2019 12.8, 02/10/2019 hemoglobin 9.6, baseline 10-11 range, B12 normal level, RBC folate still pending as of 02/10/19, likely a send out lab. 11. DVT prophylaxis: SCDs, therapeutic Lovenox. 12. CODE status: Full Code. Code Visit Inpatient E&M: 77014 Subs Hosp L2
--- NOTE | 2019-02-10 09:17 | CM.UR ---
Participated in interdisciplinary rounds. Remains on Vent. Plan is for trach on Tuesday. Decreasing sedation. DC plan is Chrissy BROOKS. Diane Gastelum RN, CCM.
[2019-02-10] MEDS: Furosemide 40 MG/4 ML Vial IV (09:28)
[2019-02-10] MEDS: predniSONE 10 MG Tablet GT (09:29)
[2019-02-10] MEDS: Chlorhexidine 15 ML PO ×2 (09:29→21:21)
[2019-02-10] MEDS: Lansoprazole 15 MG Capsule.DR 30 MG GT (09:30)
[2019-02-10] MEDS: CHLORHEXIDINE GLUC 2% CLOTH 1 EACH TOWELETTE TOPICAL (09:31)
[2019-02-10] MEDS: Enoxaparin 100 MG/ML Syringe SC ×2 (09:31→21:11)
[2019-02-10] MEDS: Senna/Docusate Sodium 1 Tablet 2 TABLET GT ×2 (09:31→21:10)
[2019-02-10] MEDS: QUEtiapine 25 MG Tablet 50 MG GT ×2 (09:35→21:10)
[2019-02-10 11:36] LABS: Bedside Glucose 89 mg/dL (70-110)
[2019-02-10] MEDS: Propofol 10MG/Ml 1,000 MG/100 ML Bottle 8.9 MG CONT INF (13:00)
[2019-02-10] MEDS: Vital AF 1.2 Cal Liquid 1,000 ML 60 ML GT (16:04)
[2019-02-10 17:55] LABS: Bedside Glucose 110 mg/dL (70-110)
[2019-02-10] MEDS: Atorvastatin Calcium 80 MG Tablet GT (21:10)
[2019-02-10] MEDS: Propofol 10MG/Ml 1,000 MG/100 ML Bottle 3 MG CONT INF (23:02)
[2019-02-10 23:46] LABS: Bedside Glucose 96 mg/dL (70-110)
[2019-02-11] VITALS (40 sets, daily range): BP systolic 86–123; BP diastolic 48–71; PULSE 65–103; RESP 12–22; TEMP 37.4–37.9; O2SAT 89–99
[2019-02-11] MEDS: guaiFENesin 10 ML UDC (200MG/10ML) GT ×5 (00:34→22:53)
[2019-02-11] MEDS: fentaNYL drip 100 ML 10 MCG IV ×3 (01:43→22:58)
[2019-02-11 04:10] LABS: Absolute Lymphocyte Count 1.89 X10^3/uL (0.83-4.51); Absolute Neutrophil Count 2.7 X10^3/uL (2.0-7.7); Basophil# 0.01 X10^3/uL; Basophil% 0.2 % (0-1); Eosinophil# 0.04 X10^3/uL; Eosinophils% 0.8 % (0-5); Hematocrit 31.6 % (40-54); Lymphocyte # 1.89 X10^3/ul (4.0); Lymphocyte % 37.5 % (19-41); Mean Corp Hgb Conc 31.6 g/dL (32-36); Mean Corpuscular Hgb 33.8 pg (27.0-32.0); Mean Corpuscular Volume 106.8 fL (80-94); Monocyte# 0.39 X10^3/uL; Monocyte% 7.7 % (0-10); NRBC Flagged by Analyzer 0 % (0-5); Neutrophil # 2.67 X10^3/uL (2.7-7.7); Platelet Count 147 K/mm3 (150-450); RBC Distribution Width CV 15.4 % (11.6-14.6); RBC Distribution Width SD 59.1 fl (35.1-43.9); Red Blood Count 2.96 M/mm3 (4.6-6.2)
[2019-02-11 04:27] LABS: ALB/GLOB Ratio 0.5 RATIO (0.9-2.4); AST(SGOT) 34 U/L (15-37); Alanine Aminotransfer ALT/SGPT 19 U/L (16-61); Alkaline Phosphatase 62 U/L (45-117); Anion Gap 3 (5-15); BUN 13 mg/dL (7-18); BUN/Creat Ratio 60.7 RATIO (10-20); Calcium,Total 8.4 mg/dL (8.5-10.1); Chloride 101 mmol/L (98-107); Creatinine, Serum 0.21 mg/dL (0.70-1.30); EST Glomerular Filtration Rate 478 mL/min (>60); Est Glom Filt Rate - Afr Amer 578 mL/min (>60); Globulin 3.8 g/dL (2.2-4.2); Glucose 80 mg/dL (74-106); Potassium 3.8 mmol/L (3.5-5.1); Protein, Total 5.8 g/dL (6.4-8.2); Sodium Level 140 mmol/L (136-145)
[2019-02-11] MEDS: Gabapentin 300 MG Capsule GT ×3 (05:50→23:01)
[2019-02-11] MEDS: 0.9% Saline Lock 10 ML Syringe IV (05:50)
[2019-02-11] MEDS: CHLORHEXIDINE GLUC 2% CLOTH 1 EACH TOWELETTE TOPICAL (05:50)
[2019-02-11] MEDS: TITRATION PARAMETER CHANGE 1 EACH IV (05:56)
[2019-02-11 06:01] LABS: Bedside Glucose 88 mg/dL (70-110)
[2019-02-11] MEDS: Ipratropium/Albuterol Sulfate 3 ML AMPUL.NEB INHALATION ×4 (06:31→18:46)
--- NOTE | 2019-02-11 06:43 | PN_ITS ---
Subjective: The patient was seen and examined at the bedside this morning. Events from the last 24 hours have been reviewed. The patient appears to once again have developed a low-grade fever. However, he remains hemodynamically stable. The patient was placed on scheduled Seroquel yesterday in hopes of decreasing the amount of propofol he is requiring. This morning, attempts to complete a spontaneous awakening trial was limited by the development of a significant amount of agitation. FiO2 requirement remained steady at 45%. The patient is currently overall net +12.3 L for the admission. He has been receiving IV Lasix in hopes of volume optimization. Objective: The patient's most recent lab work, culture data and imaging studies have all been personally reviewed. Sputum culture dated January 26 was positive for both Haemophilus influenza and Streptococcus pneumoniae. Repeat infectious work-up from February 08, including blood, urine and sputum cultures have been unrevealing to date. General: - - Remains intubated, sedated mechanically ventilated. HEENT: Atraumatic, PERRLA, Normocephalic Oral: No Gingival or Mucosal Lesions/ Ulcerations, - - Endotracheal tube remains in place. Neck: Supple, No Nodes, Trachea Midline Lungs: No rhonchi, No wheeze, No rales, Diminished Cardiovascular: Regular rate, Regular Rhythm, Normal S1, Normal S2, No murmurs Abdomen: Bowel Sounds Present, Soft, Non Tender, Obese, - - +PEG in place Extremities: No clubbing, No cyanosis, Edema Skin: No breakdown Musculoskeletal: No Muscle Wasting Lymphatic: No Cervical, Supraclavicular, or Inguinal Adenopathy Neurological: - - No focal neurological deficits. Moves all extremities spontaneously. Currently sedated. Psych/Mental Status: - - Intermittently agitated depending on the level of sedation. Vital Signs Temp Pulse Resp BP Pulse Ox 99.9 F H 74 16 104/53 L 98 02/11/19 06:00 02/11/19 06:00 02/11/19 06:00 02/11/19 06:00 02/11/19 06:00 Oxygen Flow Rate (L/min) 45 Oxygen Delivery Method Mechanical Ventilator Weight: 211 lb 10.3 oz Body Mass Index (BMI) 31.9 Intake and Output for Last 24 Hours 02/09/19 02/10/19 02/11/19 23:59 23:59 23:59 Intake Total 2247.39 / 2668.39 2759.52 / 2764.92 385.92 / 385.92 Output Total 825 / 1225 3400 / 3400 200 / 200 Balance 1422.39 / 1443.39 -640.48 / -635.08 185.92 / 185.92 Labs (Last 48 Hours) 01/26/19 02/09/19 02/09/19 10:24 04:10 12:28 WBC RBC Hgb Hct MCV MCH MCHC RDW Std Deviation RDW Coeff of Mohsen Plt Count MPV Immature Gran % (Auto) Neut % (Auto) Lymph % (Auto) [place] % (Auto) Eos % (Auto) Baso % (Auto) Absolute Neuts (auto) Absolute Lymphs (auto) Nucleated RBC % Sodium Potassium Chloride Carbon Dioxide Anion Gap BUN Creatinine Estim Creat Clear Calc Est GFR (MDRD) Af Amer Est GFR (MDRD) Non-Af BUN/Creatinine Ratio Glucose Calcium Total Bilirubin AST ALT Alkaline Phosphatase Total Creatine Kinase 263 Total Protein Albumin Globulin Albumin/Globulin Ratio Triglycerides 105 Acetylchol Rcpt Block Ab 19 Acetylchol Rcpt Modu Ab <12 POC Glucose 92 02/09/19 02/09/19 02/10/19 17:08 23:59 03:55 WBC 4.7 RBC 2.80 L Hgb 9.6 L Hct 29.9 L MCV 106.8 H MCH 34.3 H MCHC 32.1 RDW Std Deviation 59.3 H RDW Coeff of Mohsen 15.2 H Plt Count 133 L MPV 10.4 Immature Gran % (Auto) 0.600 Neut % (Auto) 60.7 Lymph % (Auto) 30.1 [place] % (Auto) 7.5 Eos % (Auto) 0.9 Baso % (Auto) 0.2 Absolute Neuts (auto) 2.9 Absolute Lymphs (auto) 1.41 Nucleated RBC % 0 Sodium Potassium Chloride Carbon Dioxide Anion Gap BUN Creatinine Estim Creat Clear Calc Est GFR (MDRD) Af Amer Est GFR (MDRD) Non-Af BUN/Creatinine Ratio Glucose Calcium Total Bilirubin AST ALT Alkaline Phosphatase Total Creatine Kinase Total Protein Albumin Globulin Albumin/Globulin Ratio Triglycerides Acetylchol Rcpt Block Ab Acetylchol Rcpt Modu Ab POC Glucose 134 H 97 02/10/19 02/10/19 02/10/19 03:55 05:18 11:27 WBC RBC Hgb Hct MCV MCH MCHC RDW Std Deviation RDW Coeff of Mohsen Plt Count MPV Immature Gran % (Auto) Neut % (Auto) Lymph % (Auto) [place] % (Auto) Eos % (Auto) Baso % (Auto) Absolute Neuts (auto) Absolute Lymphs (auto) Nucleated RBC % Sodium 139 Potassium 3.4 L Chloride 100 Carbon Dioxide 37.0 H Anion Gap 2 L BUN 12 Creatinine 0.27 L Estim Creat Clear Calc 287.31 Est GFR (MDRD) Af Amer 436 Est GFR (MDRD) Non-Af 361 BUN/Creatinine Ratio 44.0 H Glucose 100 Calcium 8.3 L Total Bilirubin 0.40 AST 29 ALT 19 Alkaline Phosphatase 64 Total Creatine Kinase Total Protein 5.7 L Albumin 1.9 L Globulin 3.8 Albumin/Globulin Ratio 0.5 L Triglycerides Acetylchol Rcpt Block Ab Acetylchol Rcpt Modu Ab POC Glucose 87 89 02/10/19 02/10/19 02/11/19 17:47 23:40 04:00 WBC 5.0 RBC 2.96 L Hgb 10.0 L Hct 31.6 L MCV 106.8 H MCH 33.8 H MCHC 31.6 L RDW Std Deviation 59.1 H RDW Coeff of Mohsen 15.4 H Plt Count 147 L MPV 10.0 Immature Gran % (Auto) 0.800 Neut % (Auto) 53.0 Lymph % (Auto) 37.5 [place] % (Auto) 7.7 Eos % (Auto) 0.8 Baso % (Auto) 0.2 Absolute Neuts (auto) 2.7 Absolute Lymphs (auto) 1.89 Nucleated RBC % 0 Sodium Potassium Chloride Carbon Dioxide Anion Gap BUN Creatinine Estim Creat Clear Calc Est GFR (MDRD) Af Amer Est GFR (MDRD) Non-Af BUN/Creatinine Ratio Glucose Calcium Total Bilirubin AST ALT Alkaline Phosphatase Total Creatine Kinase Total Protein Albumin Globulin Albumin/Globulin Ratio Triglycerides Acetylchol Rcpt Block Ab Acetylchol Rcpt Modu Ab POC Glucose 110 96 02/11/19 02/11/19 04:00 05:47 WBC RBC Hgb Hct MCV MCH MCHC RDW Std Deviation RDW Coeff of Mohsen Plt Count MPV Immature Gran % (Auto) Neut % (Auto) Lymph % (Auto) [place] % (Auto) Eos % (Auto) Baso % (Auto) Absolute Neuts (auto) Absolute Lymphs (auto) Nucleated RBC % Sodium 140 Potassium 3.8 Chloride 101 Carbon Dioxide 36.0 H Anion Gap 3 L BUN 13 Creatinine 0.21 L Estim Creat Clear Calc 369.40 Est GFR (MDRD) Af Amer 578 Est GFR (MDRD) Non-Af 478 BUN/Creatinine Ratio 60.7 H Glucose 80 Calcium 8.4 L Total Bilirubin 0.50 AST 34 ALT 19 Alkaline Phosphatase 62 Total Creatine Kinase Total Protein 5.8 L Albumin 2.0 L Globulin 3.8 Albumin/Globulin Ratio 0.5 L Triglycerides Acetylchol Rcpt Block Ab Acetylchol Rcpt Modu Ab POC Glucose 88 Microbiology 02/08/19 10:15 Blood Culture (Wb) - No Site/Description Given Blood Culture - Preliminary No growth in 48 hours. 02/08/19 09:38 Blood Culture (Wb) - Pic Blood Culture - Preliminary No growth in 48 hours. 02/08/19 09:30 Urine Catheter - [place] Urine Culture - Final Culture exhibits no growth. 02/08/19 11:35 Sputum, Induced/[place]uk[place] Gram Stain - Final 02/08/19 11:35 Sputum, Induced/[place]ens Respiratory Culture - Final Culture exhibits no growth. Clinical Impression(s) from Imaging Studies Brain CT 01/23/19 18:35 IMPRESSION: Chronic involutional changes of the brain. Electronically Signed: Ford Craig MD at 19:28 EST , Service support , Chest X-Ray 01/23/19 18:37 IMPRESSION: Calcified plaques of the thoracic aorta. Multiple old bilateral rib fractures. No acute cardiopulmonary disease process is seen. Electronically Signed: Ford Craig MD at 18:56 EST , Service support , Head MRA 01/24/19 12:20 IMPRESSION: Normal MRA of the head. No demonstrated aneurysm, dissection, stenosis, or occlusion. Electronically Signed: Renetta Diaz MD at 16:09 EST Tel , Service support , Neck MRA 01/24/19 12:20 IMPRESSION: Normal bilateral cervical carotid and vertebral arteries. Electronically Signed: Renetta Diaz MD at 16:15 EST Tel , Service support , Brain MRI 01/24/19 12:30 IMPRESSION: No acute infarct or intracranial hemorrhage. Mild involutional changes of the brain, as described above. Electronically Signed: Isaihammad Coleman, at 15:29 EST Tel , Service support , Chest X-Ray 01/25/19 09:45 IMPRESSION: Hazy infiltrates at the right lung base may represent atelectasis or pneumonia in the proper clinical setting. Electronically Signed: Andrew Coleman, at 10:46 EST Tel , Service support , Chest X-Ray 01/26/19 09:27 IMPRESSION: Persistent hazy infiltrates at the right lung base may represent aspiration pneumonia. Small right pleural effusion. Electronically Signed: Andrew Coleman, at 10:01 EST Tel , Service support , Chest X-Ray 01/26/19 10:05 IMPRESSION: ET tube as described above. Persistent hazy infiltrates at the right lung base may represent aspiration pneumonia. Electronically Signed: Andrew Coleman, at 11:31 EST Tel , Service support , KUB X-Ray 01/26/19 10:05 IMPRESSION: Enteric tube overlies the stomach. Electronically Signed: Andrew Coleman at 11:35 EST Tel , Service support , KUB X-Ray 01/26/19 10:46 IMPRESSION: Enteric tube overlies the stomach. Electronically Signed: Andrew Coleman, at 11:41 EST Tel , Service support , Chest X-Ray 01/27/19 06:29 IMPRESSION: Bibasilar pulmonary opacities with mild decrease on the right and mild increase on the left. at 0744 Reported and signed by: Vidhya Tierney MD Electronically Signed: Vidhya Tierney MD at 7:44 EST Tel , Service support , Chest CTA 01/28/19 00:00 IMPRESSION: 1. Small right middle lobe segmental pulmonary emboli. 2. Bilateral lower lobe airspace consolidations and possible atelectasis suggesting pneumonia. 3. 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 4. No CTA demonstrated arterial dissection. N.B. : The above information has been verbally conveyed by Maddie Jeffers MD to RANDY Galvez, on 01/28/2019 09:50:52 (ET). Electronically Signed: Maddie Jeffers MD at 9:55 EST , Service support , ADDENDUM: 01/28/19 1002 IMPRESSION: 1. Small right middle lobe segmental pulmonary emboli. 2. Bilateral lower lobe airspace consolidations and possible atelectasis suggesting pneumonia. 3. 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 4. No CTA demonstrated arterial dissection. N.B. : The above information has been verbally conveyed by Maddie Jeffers MD to RANDY Galvez, on 01/28/2019 09:50:52 (ET). Electronically Signed: Maddie Jeffers MD at 9:55 EST , Service support , KUB X-Ray 02/01/19 09:29 IMPRESSION: Limited study of the abdomen and pelvis which is grossly negative. Electronically Signed: Wesley Mayer, at 10:40 EST Tel , Service support , Chest X-Ray 02/04/19 03:37 IMPRESSION: Right lower lobe consolidation suggestive of infiltrate and/or atelectasis. Lines and tubes as described above. Electronically Signed: Elizabet Aguilar MD at 3:57 EST , Service support , Medical Necessity - Tobacco Use Smoking Status: Current every day smoker Tobacco Use: Cigarettes Assessment/Plan All Active Problems CVA (cerebral vascular accident) (Acute) Slurred speech (Acute) COPD exacerbation (Acute) RECOMMENDATIONS: 1. Continue to wean FiO2 to maintain oxygen saturations at or above 90%. 2. Continue bronchodilators and prednisone. 3. Continue tube feeds. 4. Continue scheduled Lasix. 5. Plans for tracheostomy on Tuesday. 6. Hold Lovenox on Tuesday. IMPRESSIONS: 1. Acute on chronic hypoxemic respiratory failure secondary to aspiration pneumonia The patient was emergently transferred to the ICU on the morning of January 26, where he did require intubation due to impending respiratory failure following an aspiration event. The patient did complete a full treatment course of antimicrobials to address the Haemophilus influenza and streptococcal pneumonia isolated from his sputum culture. However, the patient continues to require a high amount of ventilatory support and has frequent issues with mucus plugging. He has been unable to complete a spontaneous breathing trial without failure. The patient has been on the ventilator now for greater than 14 days. ENT is currently following with plans for tracheostomy placement on Tuesday. In the interim, we will plan to continue aggressive bronchopulmonary hygiene, scheduled bronchodilators and steroids. FiO2 will be weaned to maintain an oxygen saturation at or above 90%. PEG tube is already in place and the patient is tolerating tube feeds without issue. 2. Septic shock secondary to presumed aspiration pneumonia As noted above, the patient completed a full treatment course of antibiotics for his underlying pneumonia. His blood pressures have remained stable. However, the patient did spike a fever yesterday. Therefore, repeat blood, urine and sputum cultures were obtained and empiric antimicrobials started. The patient's fever has since resolved. Given that repeat cultures have not shown any growth to date, antibiotics were discontinued. 3. COPD with exacerbation Inciting etiology appears to be aspiration event. Continue current supportive measures as noted above along with bronchodilators and steroids. Wean oxygen as tolerated. 4. Pulmonary emboli Identified on CTA chest early in the admission. The patient has been on treatment dose Lovenox. This will need to be held in preparation for possible tracheostomy. 5. Slurred speech Neurology is currently following. Work-up has been unrevealing to date. 6. History of venous thrombi embolic disease/hypertension/hyperlipidemia/seizure disorder/continuous tobacco dependency Complicates care, management, recovery and prognosis. Continue antiepileptics. TIME: 35 minutes of critical care time, independent of procedures, was spent addressing the patient's acute on chronic hypoxemic respiratory failure, septic shock secondary to aspiration pneumonia, COPD with exacerbation, pulmonary emboli, review of all data and collaboration with the care team. ([id number]) Code Visit [id number]: [id number] Critical care first hour
--- NOTE | 2019-02-11 08:07 | PN_ITS ---
Patient Problems: Active and Suspected Problems CVA (cerebral vascular accident) (Acute) Slurred speech (Acute) Subjective: The patient is a 63 y/o M w/ PMHx: Chronic COPD w/ Chronic Hypoxic Respiratory Failure (4-5L NC) following w/ CC Pulmonary, Obesity, HTN, HLD, Depression and Anxiety, Hx DVT/PE on coumadin, Seizure disorder, Tobacco use ongoing who presents to the [facility] ED on 01/23/19 with history of 2 to 3 days of progressively worsening fatigue, weakness generally, dyspnea worse with exertion with mildly productive cough of yellow-shields sputum with ongoing wheezing x 2 days. Admitted with Acute Septic Shock secondary to Acute on Chronic Hypoxic Respiratory Failure secondary to Acute on chronic COPD exacerbation and Aspiration Pneumonia as well as Haemophilus Influenzae and Streptococcal Pneumonia. Initial ED evaluation with chest x-ray with chronic changes with CBC with no market WBC elevation and maintained on oxygen supplementation however clinically worsened and required transition to the ICU with intubation, sedation with negative blood cultures, sputum cultures with Haemophilus influenza and Streptococcus pneumonia, maintained on IV Unasyn x 10-day course of antibiotic therapy, treated on ATC duoneb, PRN albuterol, IV Solu-Medrol transitioned to prednisone taper, aggressive IV fluid administration given concurrent septic shock treated initially with Levophed, transitioned off, still serially failed spontaneous breathing trials. Intermittent pulse lasix usage now transitioned 02/11/19 to 40 mg IV BID given ongoing weight increase, edema. 02/06/19 PEG tube per General Surgery with tube feed initiation and continued toleration at goal. 02/07/19- 02/08/19 F, NG UCx, Bld Cx, Sputum. Low grade T overnight, ? atelectasis given negative nair-cultures. No vent setting changes overnight, but continued failure of breathing trials/decrease sedation. Plan ongoing for Dr. Becerril consulted, planned trach 02/12/19, unclear time. During admission CT chest with small segmental right-sided PE with history of prior PE and DVT, could initially transition to Eliquis secondary to crush reaction with Coumadin and Depakote, transitioned to therapeutic Lovenox, holding 02/12/19 AM for OR. Once stable s/p trach, needs LTAC placement. Patient with no acute events overnight per nursing staff aside low-grade fever with recent blood culture x2 obtained as well as urine culture and sputum culture with no growth. Ongoing plans for 02/12/[address] Becerril ENT. ICU physician had dose patient with Seroquel day prior to attempt decrease propofol usage. Recurrent difficulties with spontaneous awakening trials with ongoing usage of FiO2 45%. Patient with intermittent IV Lasix usage given notable positive net since admission and intermittent increased edema to upper and lower extremities. Patient without evidence of chills, nausea, emesis, abdominal pain, chest pain or dyspnea. Objective: Physical Examination: General: Intubated, more sedate today upon evaluation, no acute distress, laying in the ICU bed, more sedated currently, not awakening. Skin: normal color, turgor, no icterus, cyanosis, dorcas-PEG region well- appearing. HEENT: AT/NC, unable to assess EOM, PERRLA, mildly dry MM, intubated, sedated. Lungs: Remains diminished, > bases, intubated, sedated, symmetric rise, no current obvious rales, ronchi or wheezing. Heart: Regular rate and rhythm; no gallop, rub audible. Abdomen: soft, obese, NTTP, ND, normal BS. Extremities: no cyanosis, clubbing, increased from day prior BL LE ankle and hand and bilateral lower extremity edema, intermittent IV Lasix usage per ICU direction. Neurological: Intubated, sedated, no obvious distress, more sedate, not following commands, laying in the ICU bed; cognitive function not baseline intact; pupils equally reactive to light and accomodation; cranial nerves unable to be assessed given sedated status, strength accordingly severely globally decreased. Psychiatric: affect appears sedate, flat, no acute evidence of depressive or anxiety feelings. Vitals/I&O's: Vital Signs Temp Pulse Resp BP Pulse Ox 100.1 F H 71 12 92/60 94 02/11/19 07:00 02/11/19 07:00 02/11/19 07:00 02/11/19 07:00 02/11/19 07:00 Oxygen Flow Rate (L/min) 45 Oxygen Delivery Method Mechanical Ventilator Weight: 211 lb 10.3 oz Body Mass Index (BMI) 31.9 Intake and Output for Last 24 Hours 02/09/19 02/10/19 02/11/19 23:59 23:59 23:59 Intake Total 2247.39 / 2668.39 2759.52 / 2764.92 404.52 / 404.52 Output Total 825 / 1225 3400 / 3400 200 / 200 Balance 1422.39 / 1443.39 -640.48 / -635.08 204.52 / 204.52 Microbiology Past 72 Hours 02/08/19 10:15 Blood Culture (Wb) - No Site/Description Given Blood Culture - Preliminary No growth in 48 hours. 02/08/19 09:38 Blood Culture (Wb) - Pic Blood Culture - Preliminary No growth in 48 hours. 02/08/19 09:30 Urine Catheter - [place] Urine Culture - Final Culture exhibits no growth. 02/08/19 11:35 Sputum, Induced/Lukens Gram Stain - Final 02/08/19 11:35 Sputum, Induced/Lukens Respiratory Culture - Final Culture exhibits no growth. Laboratory Results 02/10/19 11:27: POC Glucose 89 02/10/19 17:47: POC Glucose 110 02/10/19 23:40: POC Glucose 96 02/11/19 04:00: WBC 5.0, RBC 2.96 L, Hgb 10.0 L, Hct 31.6 L, MCV 106.8 H, MCH 33 .8 H, MCHC 31.6 L, RDW Std Deviation 59.1 H, RDW Coeff of Mohsen 15.4 H, Plt Count 147 L, MPV 10.0, Immature Gran % (Auto) 0.800, Neut % (Auto) 53.0, Lymph % (Auto) 37.5, [place] % (Auto) 7.7, Eos % (Auto) 0.8, Baso % (Auto) 0.2, Absolute Neuts (auto) 2.7, Absolute Lymphs (auto) 1.89, Nucleated RBC % 0 02/11/19 04:00: Sodium 140, Potassium 3.8, Chloride 101, Carbon Dioxide 36.0 H, Anion Gap 3 L, BUN 13, Creatinine 0.21 L, Estim Creat Clear Calc 369.40, Est GFR (MDRD) Af Amer 578, Est GFR (MDRD) Non-Af 478, BUN/Creatinine Ratio 60.7 H, Glucose 80, Calcium 8.4 L, Total Bilirubin 0.50, AST 34, ALT 19, Alkaline Phosphatase 62, Total Protein 5.8 L, Albumin 2.0 L, Globulin 3.8, Albumin/Globulin Ratio 0.5 L 02/11/19 05:47: POC Glucose 88 Current Medications Acetaminophen (Tylenol) 650 mg PO Q6H PRN PRN PRN Reason: Non-cardiac pain (-12/14) Last Admin: 01/25/19 15:13 Dose: 650 mg Documented by: Acetaminophen (Tylenol Liquid) 650 mg GT Q6H PRN PRN PRN Reason: TEMP>101 Last Admin: 02/08/19 11:50 Dose: 650 mg Documented by: Al Hydroxide/Mg Hydroxide (Mylanta Ii) 15 - 30 ml PO Q4H PRN PRN PRN Reason: INDIGESTION Albuterol Sulfate (Ventolin Aerosols) 2.5 mg INHALATION Q2H PRN PRN PRN Reason: dyspnea, wheezing Last Admin: 01/26/19 09:26 Dose: 2.5 mg Documented by: Albuterol/Ipratropium (Duoneb) 3 ml INHALATION Q4HWA.RT [facility] Last Admin: 02/11/19 06:31 Dose: 3 ml Documented by: Atorvastatin Calcium (Lipitor) 80 mg GT QHS [facility] Last Admin: 02/10/19 21:10 Dose: 80 mg Documented by: Chlorhexidine Gluconate () 15 ml PO BID [facility] Last Admin: 02/10/19 21:21 Dose: 15 ml Documented by: Chlorhexidine Gluconate () 1 each TOPICAL DAILY [facility] Last Admin: 02/11/19 05:50 Dose: 1 each Documented by: Dextrose (D50w Syringe) 0 gm IV X1 PRN; Protocol PRN Reason: Hypoglycemia Divalproex Sodium (Depakote Er) 500 mg PO 0700,1300 [facility] Last Admin: 01/26/19 13:30 Dose: Not Given Documented by: Divalproex Sodium (Depakote Er) 1,000 mg PO QHS [facility] Last Admin: 01/25/19 21:41 Dose: 1,000 mg Documented by: Furosemide (Lasix) 40 mg IV BID@1000,1800 [facility] Gabapentin (Neurontin) 300 mg GT TID [facility] Last Admin: 02/11/19 05:50 Dose: 300 mg Documented by: Glucagon () 1 mg IM .X1 PRN PRN Reason: Hypoglycemia Guaifenesin (Robitussin) 10 ml GT Q6H PRN Guaifenesin (Robitussin) 10 ml GT Q6H [facility] Last Admin: 02/11/19 05:50 Dose: 10 ml Documented by: Sodium Chloride () 250 mls @ 15 mls/hr IV .[id number] PRN PRN Reason: Saline Flush Last Infusion: 02/10/19 13:38 Dose: 0 mls/hr Documented by: Enteral Nutritional Formula (Vital Af 1.2 Truong Liquid) 1,000 mls @ 30 mls/hr GT .[id number] [facility] Last Admin: 02/10/19 16:04 Dose: 60 mls/hr Documented by: Fentanyl () 100 mls @ 15 mls/hr IV UD [facility]; Protocol Last Titration: 02/11/19 07:00 Dose: 100 mcg/hr, 10 mls/hr Documented by: Propofol (Diprivan) 1,000 mg in 100 mls @ 17.28 mls/hr CONT INF .Q5H48M [facility]; Protocol Last Titration: 02/11/19 07:00 Dose: 15 mcg/kg/min, 8.6 mls/hr Documented by: Insulin Human Lispro (Humalog Kwikpen (Bkc)) 0 unit SC Q6 [facility]; Protocol Last Admin: 02/11/19 05:51 Dose: Not Given Documented by: Lansoprazole (Lansoprazole) 30 mg GT DAILY [facility] Last Admin: 02/10/19 09:30 Dose: 30 mg Documented by: Magnesium Hydroxide (Milk Of Magnesia) 30 ml GT DAILY PRN PRN Reason: Constipation Last Admin: 01/30/19 09:33 Dose: 30 ml Documented by: Nicotine (Nicoderm Cq (Pbkc)) 21 mg TRANSDERM. DAILY [facility] Last Admin: 02/10/19 09:32 Dose: 21 mg Documented by: Nitroglycerin (Nitrostat) 0.4 mg SUBLINGUAL Q5M PRN PRN Reason: CARDIAC/CHEST PAIN Ondansetron HCl (Zofran) 4 mg IV Q8H PRN PRN PRN Reason: NAUSEA/VOMITING Prednisone () 10 mg GT DAILY@0800 [facility] Last Admin: 02/10/19 09:29 Dose: 10 mg Documented by: Quetiapine Fumarate (Seroquel) 50 mg GT BID [facility] Last Admin: 02/10/19 21:10 Dose: 50 mg Documented by: Senna/Docusate Sodium (Senokot-S, Dorcas-Colace) 2 tablet GT BID [facility] Last Admin: 02/10/19 21:10 Dose: 2 tablet Documented by: Sodium Chloride () 10 - 40 ml IV UD PRN PRN Reason: SALINE FLUSH Last Admin: 02/11/19 05:50 Dose: 30 ml Documented by: Throat Lozenges (Cepacol Sore Throat Lozenge) 1 lozenge MUCOUS MEM Q2H PRN PRN PRN Reason: COUGH Valproic Acid (Depakene) 500 mg GT 4X/DAY [facility] Last Admin: 02/10/19 21:10 Dose: 500 mg Documented by: STROKE Vital Signs/Narrative: Vital Signs Temp Pulse Resp BP Pulse Ox 02/11/19 07:00 100.1 F H 71 12 92/60 94 02/11/19 06:31 76 18 99 02/11/19 06:00 99.9 F H 74 16 104/53 L 98 02/11/19 05:00 100.0 F H 78 14 101/54 L 96 Medical Necessity - Tobacco Use Smoking Status: Current every day smoker Tobacco Use: Cigarettes Assessment/Plan All Active Problems CVA (cerebral vascular accident) (Acute) Slurred speech (Acute) COPD exacerbation (Acute) The patient is a 63 y/o M w/ PMHx: Chronic COPD w/ Chronic Hypoxic Respiratory Failure (4-5L NC) following w/ CC Pulmonary, Obesity, HTN, HLD, Depression and Anxiety, Hx DVT/PE on coumadin, Seizure disorder, Tobacco use ongoing who presents to the [facility] ED on 01/23/19 with history of 2 to 3 days of progressively worsening fatigue, weakness generally, dyspnea worse with exertion with mildly productive cough of yellow-shields sputum with ongoing wheezing x 2 days. 1. Acute Septic Shock secondary to Acute on Chronic Hypoxic Respiratory Failure secondary to Acute on chronic COPD exacerbation and Aspiration Pneumonia as well as Haemophilus Influenzae and Streptococcal Pneumonia: Initial ED evaluation with chest x-ray with chronic changes with CBC with no market WBC elevation and maintained on oxygen supplementation however clinically worsened and required transition to the ICU with intubation, sedation with negative blood cultures, sputum cultures with Haemophilus influenza and Streptococcus pneumonia, maintained on IV Unasyn x 10-day course of antibiotic therapy, treated on ATC duoneb, PRN albuterol, IV Solu-Medrol transitioned to prednisone taper, aggressive IV fluid administration given concurrent septic shock treated initially with Levophed, transitioned off, still serially failed spontaneous breathing trials. Intermittent pulse lasix usage now transitioned 02/11/19 to 40 mg IV BID given ongoing weight increase, edema. 02/06/19 PEG tube per General Siegel rgery with tube feed initiation and continued toleration at goal. 02/07/19- 02/08/19 F, NG UCx, Bld Cx, Sputum. Low grade T overnight, ? atelectasis given negative nair-cultures. No vent setting changes overnight, but continued failure of breathing trials/decrease sedation. Plan ongoing for Dr. Becerril consulted, planned trach 02/12/19, unclear time. 2. Acute Pulmonary Embolism: CT chest with small segmental right-sided PE with history of prior PE and DVT, could initially transition to Eliquis secondary to crush reaction with Coumadin and Depakote, transitioned to therapeutic Lovenox, holding 02/12/19 AM for OR. 3. Hypertension: Regimen held upon admission given #1, BP low normal, remains off pressor therapy, PRN agents as needed but baseline SBP < 110. 4. Hyperlipidemia: Continue on high-dose statin therapy. 5. History of DVT/PE: Upon admission position from Coumadin to Eliquis secondary to cross-reactivity of medications, given acute presentation with #1, #2 transitioned to therapeutic Lovenox, , holding 02/12/19 AM for OR. 6. Obesity: Weight loss and lifestyle changes encouraged, nutrition consulted. 7. Seizure disorder: Continued on Depakote regimen. 8. Tobacco Abuse: Encouraged upon admission cessation, inpatient consultation per RT if clinically becomes appropriate given #1, NR if desired. 9. GERD: Famotidine. 10. Microcytic anemia: Hemoglobin 14.4 however repeat 01/24/2019 12.8, 02/10/2019 hemoglobin 9.6, baseline 10-11 range, B12 normal level, RBC folate still pending as of 02/10/19, likely a send out lab. 11. DVT prophylaxis: SCDs, therapeutic Lovenox, holding 02/12/19 AM for OR. 12. CODE status: Full Code. Code Visit Inpatient E&M: 17620 Subs Hosp L2
[2019-02-11] MEDS: Propofol 10MG/Ml 1,000 MG/100 ML Bottle 8.6 MG CONT INF ×2 (09:59→17:59)
[2019-02-11] MEDS: Senna/Docusate Sodium 1 Tablet 2 TABLET GT (10:20)
[2019-02-11] MEDS: Lansoprazole 15 MG Capsule.DR 30 MG GT (10:21)
[2019-02-11] MEDS: Chlorhexidine 15 ML PO ×2 (10:24→22:54)
[2019-02-11] MEDS: Furosemide 40 MG/4 ML Vial IV ×2 (10:24→18:15)
[2019-02-11] MEDS: predniSONE 10 MG Tablet GT (10:24)
[2019-02-11 11:01] LABS: Bedside Glucose 87 mg/dL (70-110)
[2019-02-11] MEDS: QUEtiapine 25 MG Tablet 50 MG GT ×2 (12:11→23:01)
[2019-02-11 18:01] LABS: Bedside Glucose 91 mg/dL (70-110)
[2019-02-11] MEDS: Atorvastatin Calcium 80 MG Tablet GT (22:54)
[2019-02-11 23:15] LABS: Bedside Glucose 84 mg/dL (70-110)
[2019-02-12] VITALS (39 sets, daily range): BP systolic 85–139; BP diastolic 52–92; PULSE 66–92; RESP 10–19; TEMP 36.7–37.7; O2SAT 89–98; BMI 30.7
[2019-02-12] MEDS: Propofol 10MG/Ml 1,000 MG/100 ML Bottle 11.5 MG CONT INF ×2 (02:01→07:04)
[2019-02-12 05:07] LABS: Absolute Lymphocyte Count 1.79 X10^3/uL (0.83-4.51); Absolute Neutrophil Count 2.7 X10^3/uL (2.0-7.7); Basophil# 0.01 X10^3/uL; Basophil% 0.2 % (0-1); Eosinophil# 0.04 X10^3/uL; Eosinophils% 0.8 % (0-5); Hematocrit 31.4 % (40-54); Hemoglobin 10.4 g/dL (13.0-16.5); Lymphocyte # 1.79 X10^3/ul (4.0); Lymphocyte % 36.5 % (19-41); Mean Corp Hgb Conc 33.1 g/dL (32-36); Mean Corpuscular Hgb 35.4 pg (27.0-32.0); Mean Corpuscular Volume 106.8 fL (80-94); Mean Platelet Vol. 9.9 fl (6.2-12.0); Monocyte# 0.32 X10^3/uL; Monocyte% 6.5 % (0-10); NRBC Flagged by Analyzer 0 % (0-5); Neutrophil % 55.2 % (47-70); Platelet Count 149 K/mm3 (150-450); RBC Distribution Width CV 15.3 % (11.6-14.6); RBC Distribution Width SD 59.8 fl (35.1-43.9); Red Blood Count 2.94 M/mm3 (4.6-6.2); White Blood Count 4.9 K/mm3 (4.4-11.0)
[2019-02-12 05:23] LABS: ALB/GLOB Ratio 0.5 RATIO (0.9-2.4); AST(SGOT) 60 U/L (15-37); Alanine Aminotransfer ALT/SGPT 27 U/L (16-61); Alkaline Phosphatase 53 U/L (45-117); Anion Gap 4 (5-15); BUN 13 mg/dL (7-18); BUN/Creat Ratio 55.1 RATIO (10-20); Calcium,Total 7.9 mg/dL (8.5-10.1); Chloride 97 mmol/L (98-107); Creatinine, Serum 0.24 mg/dL (0.70-1.30); EST Glomerular Filtration Rate 427 mL/min (>60); Est Glom Filt Rate - Afr Amer 516 mL/min (>60); Globulin 3.8 g/dL (2.2-4.2); Glucose 85 mg/dL (74-106); Potassium 3.2 mmol/L (3.5-5.1); Protein, Total 5.8 g/dL (6.4-8.2); Sodium Level 137 mmol/L (136-145)
[2019-02-12 05:41] LABS: Bedside Glucose 73 mg/dL (70-110)
[2019-02-12] MEDS: guaiFENesin 10 ML UDC (200MG/10ML) GT ×2 (06:30→18:39)
[2019-02-12] MEDS: Gabapentin 300 MG Capsule GT ×2 (06:35→21:47)
[2019-02-12] MEDS: Ipratropium/Albuterol Sulfate 3 ML AMPUL.NEB INHALATION ×3 (06:37→19:30)
--- NOTE | 2019-02-12 06:52 | PN_ITS ---
Subjective: Patient did okay overnight. Patient did have some increased agitation, requiring increased sedation, so blood pressures have been marginal. Oxygen ation remained stable. Patient currently n.p.o. and off of Lovenox for tracheostomy today. Nursing and respiratory had noted significant endotracheal secretions, so no spontaneous breathing trial was attempted this morning. General: - - Intubated and sedated. RASS -2. Anasarca present. HEENT: Atraumatic, PERRLA, EOMI, Normocephalic, - - No scleral icterus or injection noted Oral: Moist Mucosa, No Gingival or Mucosal Lesions/ Ulcerations Neck: Supple, No JVD, Trachea Midline Lungs: No rhonchi, No rales, Diminished - Left greater than right base Cardiovascular: Regular rate, Regular Rhythm, Normal S1, Normal S2, No murmurs, No rub noted, No Gallop Abdomen: Bowel Sounds Present, Soft, Non Tender, Non-Distended, - - PEG is clean, dry and intact Extremities: No clubbing, No cyanosis, Edema Skin: No rashes, No breakdown Musculoskeletal: No Tenderness to Palpation of Joints or Extremities Lymphatic: No Cervical, Supraclavicular, or Inguinal Adenopathy Neurological: Cranial nerves II-XII grossly intact, Neuro grossly intact, Motor Exam 5/5 strength throughout Psych/Mental Status: Flat Affect, Impulsive Vital Signs Temp Pulse Resp BP Pulse Ox 37.5 C H 75 14 85/74 L 94 02/12/19 00:00 02/12/19 06:00 02/12/19 06:00 02/12/19 06:00 02/12/19 06:00 Oxygen Flow Rate (L/min) 45 Oxygen Delivery Method Mechanical Ventilator Weight: 94.1 kg Body Mass Index (BMI) 31.9 Intake and Output for Last 24 Hours 02/10/19 02/11/19 02/12/19 23:59 23:59 23:59 Intake Total 2759.52 / 2764.92 851.75 / 1213.58 490.83 / 490.83 Output Total 3400 / 3400 1750 / 3550 1800 / 1800 Balance -640.48 / -635.08 -898.25 / -2336.42 -1309.17 / -1309.17 Labs (Last 48 Hours) 02/10/19 02/10/19 02/10/19 05:18 11:27 17:47 WBC RBC Hgb Hct MCV MCH MCHC RDW Std Deviation RDW Coeff of Mohsen Plt Count MPV Immature Gran % (Auto) Neut % (Auto) Lymph % (Auto) [place] % (Auto) Eos % (Auto) Baso % (Auto) Absolute Neuts (auto) Absolute Lymphs (auto) Nucleated RBC % PT INR APTT Sodium Potassium Chloride Carbon Dioxide Anion Gap BUN Creatinine Estim Creat Clear Calc Est GFR (MDRD) Af Amer Est GFR (MDRD) Non-Af BUN/Creatinine Ratio Glucose Calcium Total Bilirubin AST ALT Alkaline Phosphatase Total Protein Albumin Globulin Albumin/Globulin Ratio POC Glucose 87 89 110 02/10/19 02/11/19 02/11/19 23:40 04:00 04:00 WBC 5.0 RBC 2.96 L Hgb 10.0 L Hct 31.6 L MCV 106.8 H MCH 33.8 H MCHC 31.6 L RDW Std Deviation 59.1 H RDW Coeff of Mohsen 15.4 H Plt Count 147 L MPV 10.0 Immature Gran % (Auto) 0.800 Neut % (Auto) 53.0 Lymph % (Auto) 37.5 [place] % (Auto) 7.7 Eos % (Auto) 0.8 Baso % (Auto) 0.2 Absolute Neuts (auto) 2.7 Absolute Lymphs (auto) 1.89 Nucleated RBC % 0 PT INR APTT Sodium 140 Potassium 3.8 Chloride 101 Carbon Dioxide 36.0 H Anion Gap 3 L BUN 13 Creatinine 0.21 L Estim Creat Clear Calc 369.40 Est GFR (MDRD) Af Amer 578 Est GFR (MDRD) Non-Af 478 BUN/Creatinine Ratio 60.7 H Glucose 80 Calcium 8.4 L Total Bilirubin 0.50 AST 34 ALT 19 Alkaline Phosphatase 62 Total Protein 5.8 L Albumin 2.0 L Globulin 3.8 Albumin/Globulin Ratio 0.5 L POC Glucose 96 02/11/19 02/11/19 02/11/19 05:47 10:54 17:55 WBC RBC Hgb Hct MCV MCH MCHC RDW Std Deviation RDW Coeff of Mohsen Plt Count MPV Immature Gran % (Auto) Neut % (Auto) Lymph % (Auto) [place] % (Auto) Eos % (Auto) Baso % (Auto) Absolute Neuts (auto) Absolute Lymphs (auto) Nucleated RBC % PT INR APTT Sodium Potassium Chloride Carbon Dioxide Anion Gap BUN Creatinine Estim Creat Clear Calc Est GFR (MDRD) Af Amer Est GFR (MDRD) Non-Af BUN/Creatinine Ratio Glucose Calcium Total Bilirubin AST ALT Alkaline Phosphatase Total Protein Albumin Globulin Albumin/Globulin Ratio POC Glucose 88 87 91 02/11/19 02/12/19 02/12/19 22:51 05:00 05:00 WBC 4.9 RBC 2.94 L Hgb 10.4 L Hct 31.4 L MCV 106.8 H MCH 35.4 H MCHC 33.1 RDW Std Deviation 59.8 H RDW Coeff of Mohsen 15.3 H Plt Count 149 L MPV 9.9 Immature Gran % (Auto) 0.800 Neut % (Auto) 55.2 Lymph % (Auto) 36.5 [place] % (Auto) 6.5 Eos % (Auto) 0.8 Baso % (Auto) 0.2 Absolute Neuts (auto) 2.7 Absolute Lymphs (auto) 1.79 Nucleated RBC % 0 PT INR APTT Sodium 137 Potassium 3.2 L Chloride 97 L Carbon Dioxide 36.0 H Anion Gap 4 L BUN 13 Creatinine 0.24 L Estim Creat Clear Calc 323.22 Est GFR (MDRD) Af Amer 516 Est GFR (MDRD) Non-Af 427 BUN/Creatinine Ratio 55.1 H Glucose 85 Calcium 7.9 L Total Bilirubin 0.70 AST 60 H ALT 27 Alkaline Phosphatase 53 Total Protein 5.8 L Albumin 2.0 L Globulin 3.8 Albumin/Globulin Ratio 0.5 L POC Glucose 84 02/12/19 02/12/19 05:36 06:30 WBC RBC Hgb Hct MCV MCH MCHC RDW Std Deviation RDW Coeff of Mohsen Plt Count MPV Immature Gran % (Auto) Neut % (Auto) Lymph % (Auto) [place] % (Auto) Eos % (Auto) Baso % (Auto) Absolute Neuts (auto) Absolute Lymphs (auto) Nucleated RBC % PT Pending INR Pending APTT Pending Sodium Potassium Chloride Carbon Dioxide Anion Gap BUN Creatinine Estim Creat Clear Calc Est GFR (MDRD) Af Amer Est GFR (MDRD) Non-Af BUN/Creatinine Ratio Glucose Calcium Total Bilirubin AST ALT Alkaline Phosphatase Total Protein Albumin Globulin Albumin/Globulin Ratio POC Glucose 73 Microbiology 02/08/19 10:15 Blood Culture (Wb) - No Site/Description Given Blood Culture - Preliminary No growth in 48 hours. 02/08/19 09:38 Blood Culture (Wb) - Pic Blood Culture - Preliminary No growth in 48 hours. 02/08/19 09:30 Urine Catheter - [place] Urine Culture - Final Culture exhibits no growth. 02/08/19 11:35 Sputum, Induced/Lukens Gram Stain - Final 02/08/19 11:35 Sputum, Induced/Lukens Respiratory Culture - Final Culture exhibits no growth. Medical Necessity - Tobacco Use Smoking Status: Current every day smoker Tobacco Use: Cigarettes Assessment/Plan All Active Problems CVA (cerebral vascular accident) (Acute) Slurred speech (Acute) COPD exacerbation (Acute) RECOMMENDATIONS: 1. Continue assist control. 2. Tracheostomy scheduled for 2 PM today 3. Resume tube feeds per ENT 4. Increase Seroquel dosing 5. Continue bronchodilators. Continue prednisone. Continue IPPV for pulmonary toileting 6. Reinitiate Lovenox therapy after 24 hours past the procedure if okay with ENT 7. Continue appropriate ICU prophylaxis. IMPRESSIONS: 1. Acute on chronic hypoxemic respiratory failure secondary to presumed aspiration pneumonia Patient continues to have significant issues with mucus plugging leading to respiratory decompensation. Patient is to have a tracheostomy today. Patient will have coagulation studies sent, but Lovenox was held yesterday. Continue aggressive pulmonary toileting with IPPV. Wean oxygen as tolerated. 2. Septic shock secondary to presumed aspiration pneumonia Patient has been able to come off of pressor therapy at this point. Patient has completed the 10-day course of antibiotics. Blood pressures are slightly decreased this morning, but this is likely secondary to increased sedation requirements. Patient will have Seroquel increased. Patient is not currently on antibiotics. 3. COPD with exacerbation Inciting etiology appears to be aspiration event and possible pulmonary emboli. Continue current supportive measures as noted above along with bronchodilators and steroids. Wean oxygen as tolerated. Prednisone can likely be weaned over the next 5-9 days. Likely wean prednisone tomorrow if surgery goes okay 4. Slurred speech Intubated and sedated. Will need to reevaluate once patient is liberated from the ventilator. 5. History of venous thrombi embolic disease/hypertension/hyperlipidemia/seizure disorder/continuous tobacco dependency Complicates care, management, recovery and prognosis. Hold home antihypertensives and diuretics for now. Continue antiepileptics. 6. Hyperkalemia Patient receiving aggressive diuresis at this time. Potassium appears to remain stable with current supplementation regimen TIME: 31 minutes of critical care time, independent of procedures, was spent addressing the patient's acute on chronic hypoxemic respiratory failure, COPD with exacerbation, review of all data and collaboration with the care team. (5:30 AM to 6:30 AM) Code Visit 9xxxx: [id number] Critical care first hour
[2019-02-12 07:02] LABS: Prothrombin Time (Protime)PT. 12.7 SECONDS (11.7-14.9)
[2019-02-12 07:03] LABS: Partial Thromboplast Time 30.8 Seconds (24.1-36.2)
[2019-02-12] MEDS: CHLORHEXIDINE GLUC 2% CLOTH 1 EACH TOWELETTE TOPICAL (07:36)
[2019-02-12] MEDS: Chlorhexidine 15 ML PO ×2 (09:40→21:46)
[2019-02-12] MEDS: Furosemide 40 MG/4 ML Vial IV ×2 (09:41→18:28)
[2019-02-12] MEDS: QUEtiapine 100 MG Tablet GT ×2 (09:41→21:48)
[2019-02-12] MEDS: Lansoprazole 15 MG Capsule.DR 30 MG GT (09:43)
[2019-02-12] MEDS: predniSONE 10 MG Tablet GT (09:43)
[2019-02-12] MEDS: fentaNYL drip 100 ML 12.5 MCG IV ×2 (10:49→18:54)
[2019-02-12 11:25] LABS: Bedside Glucose 89 mg/dL (70-110)
--- NOTE | 2019-02-12 12:17 | CASEMGMT ---
Addendum entered by Florin Myers 02/12/19 13:05: Numerous attempts to fax documents from [facility] and ICU machines failed. Refaxing. Tari RUIZ Original Note: RANDY DAVIDSON Note: Participated in interdisciplinary rounds.Plan is for tracheostomy today and dc to LTAC if medically ready 02/13 or 02/14/19. Call to [facility] @ [facility]. Bed is available. Updated clinical faxed to [facility]. Tari RUIZ
--- NOTE | 2019-02-12 13:27 | CASEMGMT ---
RANDY DAVIDSON Note: Call to [facility] W[facility] via phone. Discussed plans for [facility] on dc. This is still her first choice. RANDY DAVIDSON Let Chely know CM was updated that bed would be available, and further clinicals were sent today. DC date will be determined by treating physicians, but RN STUART will keep family updated. Chely states she will try to come in Tue. Questions answered and emotional support given. Tari BAÑUELOS RN ACM
[2019-02-12] MEDS: Propofol 10MG/Ml 1,000 MG/100 ML Bottle 17.3 MG CONT INF (14:00)
--- NOTE | 2019-02-12 15:12 | PCM.OPRPT ---
Report of Operation Date of Procedure: 02/12/19 Pre-Operative Diagnosis: respiratory failure Post-Operative Diagnosis: same Surgery/Procedure Performed:: Tracheotomy Type of Anesthesia:: General Anesthesiologist: Omero Quevedo Estimated Blood Loss (mL): minimal Description of Procedure: The patient was taken to the operating room 02/12/2019. He was placed in supine position on the operating room table. He was given sufficient general anesthesia. The neck was prepped and draped sterilely. 1% lidocaine with epinephrine injected into the skin overlying the intended surgical incision site. An incision was made with 15 blade. This was carried down through to the subcutaneous tissue. Subcutaneous lipectomy was then performed using Bovie cautery. A large vein was clamp cut and ligated with 3-0 silk. The midline raphae was identified. The strap muscles were lateralized with Allis clamps. The cricoid cartilage was identified. A cricoid hook was used to the superior right trachea. I moved the thyroid isthmus inferiorly with dental rolls. The first and second tracheal rings appeared to be fused. Thus, I elected to remove the third tracheal ring. Incisions were made in the tracheawith a 15 blade and the anterior aspect of the third tracheal ring was removed with Dixon scissors. The fourth tracheal ring was split. A #8 Shiley cuffed tracheotomy tube was inserted into the trachea (#[id number]). The inner cannula was placed and the cuff was inflated. The anesthesia circuit was hooked to the tracheotomy tube and immediate visualization of CO2 was seen. There was some bleeding around the thyroid that was cauterized with Bovie cautery. I then placed some Enriqueta into the wound. The tracheotomy was sewn to the skin with 3-0 silk. Trach ties were placed around the patient's neck and the tracheotomy was tied as well. He was removed from the care unit in stable condition. Blood loss minimal, replacement none. Sponge, needle and instrument count were correct at the end of the procedure.
--- NOTE | 2019-02-12 15:30 | RAD_ITS ---
STUDY: X-RAY CHEST REASON FOR EXAM: Male, 63 years old. Tracheostomy tube placement TECHNIQUE: Single AP portable view of the chest. COMPARISON: February 04, 2019 FINDINGS: There is hyperinflation of the lungs consistent with chronic obstructive lung disease (COPD). Lungs are essentially clear. Tracheostomy tube is in place. Stable right PICC. Remainder is unchanged RAD/Chest 1 View (Portable) IMPRESSION: Placement of tracheostomy tube. Lungs are essentially clear. Electronically Signed: Braden Gannon DO at 16:24 EST Tel , Service support ,
--- NOTE | 2019-02-12 17:27 | PN_ITS ---
Patient Problems: Active and Suspected Problems Slurred speech (Acute) Subjective: Patient was seen and examined earlier in the ICU today, he went for a tracheostomy today, at the time I examined him this morning, patient was sedated and on the ventilator. He did not appear to be in any distress. I talked briefly with pulmonary medicine about his care. - Physical Exam Vitals/I&O's: Vital Signs Temp Pulse Resp BP Pulse Ox 98.1 F 70 14 113/67 90 02/12/19 17:00 02/12/19 17:00 02/12/19 17:00 02/12/19 17:00 02/12/19 17:00 Oxygen Flow Rate (L/min) 45 Oxygen Delivery Method Mechanical Ventilator Weight: 94.1 kg Body Mass Index (BMI) 30.7 Intake and Output for Last 24 Hours 02/10/19 02/11/19 02/12/19 23:59 23:59 23:59 Intake Total 2759.52 / 2764.92 851.75 / 1213.58 966.95 / 966.95 Output Total 3400 / 3400 1750 / 3550 2500 / 2500 Balance -640.48 / -635.08 -898.25 / -2336.42 -1533.05 / -1533.05 General: No apparent distress, Well developed, - - Patient is sedated and on the ventilator HEENT: Atraumatic, PERRLA, EOMI, Normocephalic Oral: Moist Mucosa Neck: Supple, Trachea Midline, Thyroid Normal Size and Texture Lungs: Clear to auscultation, Normal air movement, No rhonchi, No wheeze Cardiovascular: Regular rate, Regular Rhythm, Normal S1, Normal S2, No murmurs, No Ectopic Activity, PMI Normal Abdomen: Bowel Sounds Present, Soft, Non Tender, Non-Distended Extremities: Capillary Refill Less than 3 Seconds, Edema - Generalized anasarca is noted Skin: No rashes, No breakdown Musculoskeletal: No Tenderness to Palpation of Joints or Extremities Neurological: - - Patient is sedated and on the ventilator Psych/Mental Status: - - Patient is sedated and on the ventilator Microbiology Past 72 Hours 02/08/19 10:15 Blood Culture (Wb) - No Site/Description Given Blood Culture - Preliminary No growth in 48 hours. 02/08/19 09:38 Blood Culture (Wb) - Pic Blood Culture - Preliminary No growth in 48 hours. 02/08/19 09:30 Urine Catheter - [place] Urine Culture - Final Culture exhibits no growth. 02/08/19 11:35 Sputum, Induced/[place]uk[place] Gram Stain - Final 02/08/19 11:35 Sputum, Induced/[place]ens Respiratory Culture - Final Culture exhibits no growth. Laboratory Results 02/11/19 17:55: POC Glucose 91 02/11/19 22:51: POC Glucose 84 02/12/19 05:00: WBC 4.9, RBC 2.94 L, Hgb 10.4 L, Hct 31.4 L, MCV 106.8 H, MCH 35.4 H, MCHC 33.1, RDW Std Deviation 59.8 H, RDW Coeff of Mohsen 15.3 H, Plt Count 149 L, MPV 9.9, Immature Gran % (Auto) 0.800, Neut % (Auto) 55.2, Lymph % (Auto) 36.5, [place] % (Auto) 6.5, Eos % (Auto) 0.8, Baso % (Auto) 0.2, Absolute Neuts (auto) 2.7, Absolute Lymphs (auto) 1.79, Nucleated RBC % 0 02/12/19 05:00: Sodium 137, Potassium 3.2 L, Chloride 97 L, Carbon Dioxide 36.0 H, Anion Gap 4 L, BUN 13, Creatinine 0.24 L, Estim Creat Clear Calc 323.22, Est GFR (MDRD) Af Amer 516, Est GFR (MDRD) Non-Af 427, BUN/Creatinine Ratio 55.1 H, Glucose 85, Calcium 7.9 L, Total Bilirubin 0.70, AST 60 H, ALT 27, Alkaline Phosphatase 53, Total Protein 5.8 L, Albumin 2.0 L, Globulin 3.8, Albumin/Globulin Ratio 0.5 L 02/12/19 05:36: POC Glucose 73 02/12/19 06:30: PT 12.7, INR 1.0, APTT 30.8 02/12/19 11:12: POC Glucose 89 Current Medications Acetaminophen (Tylenol Liquid) 650 mg GT Q6H PRN PRN PRN Reason: TEMP>101 Last Admin: 02/08/19 11:50 Dose: 650 mg Documented by: Al Hydroxide/Mg Hydroxide (Mylanta Ii) 15 - 30 ml PO Q4H PRN PRN PRN Reason: INDIGESTION Albuterol Sulfate (Ventolin Aerosols) 2.5 mg INHALATION Q2H PRN PRN PRN Reason: dyspnea, wheezing Last Admin: 01/26/19 09:26 Dose: 2.5 mg Documented by: Albuterol/Ipratropium (Duoneb) 3 ml INHALATION Q4HWA.RT [facility] Last Admin: 02/12/19 15:00 Dose: Not Given Documented by: Atorvastatin Calcium (Lipitor) 80 mg GT QHS [facility] Last Admin: 02/11/19 22:54 Dose: 80 mg Documented by: Chlorhexidine Gluconate () 15 ml PO BID [facility] Last Admin: 02/12/19 09:40 Dose: 15 ml Documented by: Chlorhexidine Gluconate () 1 each TOPICAL DAILY [facility] Last Admin: 02/12/19 07:36 Dose: 1 each Documented by: Dextrose (D50w Syringe) 0 gm IV X1 PRN; Protocol PRN Reason: Hypoglycemia Divalproex Sodium (Depakote Er) 500 mg PO 0700,1300 [facility] Last Admin: 01/26/19 13:30 Dose: Not Given Documented by: Divalproex Sodium (Depakote Er) 1,000 mg PO QHS [facility] Last Admin: 01/25/19 21:41 Dose: 1,000 mg Documented by: Furosemide (Lasix) 40 mg IV BID@1000,1800 [facility] Last Admin: 02/12/19 09:41 Dose: 40 mg Documented by: Gabapentin (Neurontin) 300 mg GT TID [facility] Last Admin: 02/12/19 16:35 Dose: Not Given Documented by: Glucagon () 1 mg IM .X1 PRN PRN Reason: Hypoglycemia Guaifenesin (Robitussin) 10 ml GT Q6H PRN Guaifenesin (Robitussin) 10 ml GT Q6H [facility] Last Admin: 02/12/19 13:26 Dose: Not Given Documented by: Sodium Chloride () 250 mls @ 15 mls/hr IV .[id number] PRN PRN Reason: Saline Flush Last Infusion: 02/10/19 13:38 Dose: 0 mls/hr Documented by: Enteral Nutritional Formula (Vital Af 1.2 Truong Liquid) 1,000 mls @ 30 mls/hr GT .[id number] [facility] Last Admin: 02/11/19 19:36 Dose: Not Given Documented by: Fentanyl () 100 mls @ 15 mls/hr IV UD [facility]; Protocol Last Admin: 02/12/19 10:49 Dose: 125 mcg/hr, 12.5 mls/hr Documented by: Propofol (Diprivan) 1,000 mg in 100 mls @ 17.28 mls/hr CONT INF .Q5H48M [facility]; Protocol Last Titration: 02/12/19 17:00 Dose: 25 mcg/kg/min, 14.4 mls/hr Documented by: Insulin Human Lispro (Humalog Kwikpen (Bkc)) 0 unit SC Q6 [facility]; Protocol Last Admin: 02/12/19 12:38 Dose: Not Given Documented by: Lansoprazole (Lansoprazole) 30 mg GT DAILY [facility] Last Admin: 02/12/19 09:43 Dose: 30 mg Documented by: Magnesium Hydroxide (Milk Of Magnesia) 30 ml GT DAILY PRN PRN Reason: Constipation Last Admin: 01/30/19 09:33 Dose: 30 ml Documented by: Nicotine (Nicoderm Cq (Pbkc)) 21 mg TRANSDERM. DAILY [facility] Last Admin: 02/12/19 10:31 Dose: 21 mg Documented by: Nitroglycerin (Nitrostat) 0.4 mg SUBLINGUAL Q5M PRN PRN Reason: CARDIAC/CHEST PAIN Ondansetron HCl (Zofran) 4 mg IV Q8H PRN PRN PRN Reason: NAUSEA/VOMITING Prednisone () 10 mg GT DAILY@0800 [facility] Last Admin: 02/12/19 09:43 Dose: 10 mg Documented by: Quetiapine Fumarate (Seroquel) 100 mg GT BID [facility] Last Admin: 02/12/19 09:41 Dose: 100 mg Documented by: Senna/Docusate Sodium (Senokot-S, Lila-Colace) 2 tablet GT BID [facility] Last Admin: 02/12/19 09:41 Dose: Not Given Documented by: Sodium Chloride () 10 - 40 ml IV UD PRN PRN Reason: SALINE FLUSH Last Admin: 02/11/19 05:50 Dose: 30 ml Documented by: Throat Lozenges (Cepacol Sore Throat Lozenge) 1 lozenge MUCOUS MEM Q2H PRN PRN PRN Reason: COUGH Valproic Acid (Depakene) 500 mg GT 4X/DAY [place] Last Admin: 02/12/19 16:34 Dose: Not Given Documented by: Medical Necessity - Tobacco Use Smoking Status: Current every day smoker Tobacco Use: Cigarettes Assessment/Plan All Active Problems CVA (cerebral vascular accident) (Ruled-out) Slurred speech (Acute) COPD exacerbation (Acute) #1 septic shock secondary to aspiration pneumonia-Haemophilus influenza and Streptococcus pneumoniae-patient has completed regimen of IV antibiotics #2 acute on chronic hypoxemic respiratory failure secondary to aspiration pneumonia and septic shock-patient will go for a tracheostomy today, continue vent management per pulmonary medicine #3 exacerbation of COPD #4 pulmonary emboli #5 seizure disorder #6 essential hypertension #7 hyperlipidemia Code Visit Inpatient E&M: 08199 Subs Hosp L2
[2019-02-12] MEDS: Propofol 10MG/Ml 1,000 MG/100 ML Bottle 14.4 MG CONT INF (18:26)
[2019-02-12 18:31] LABS: Bedside Glucose 87 mg/dL (70-110)
[2019-02-12] MEDS: Vital AF 1.2 Cal Liquid 1,000 ML 30 ML GT (20:43)
[2019-02-12 20:49] LABS: Vitamin B1, Thiamine 104.6 nmol/L (66.5-200.0)
[2019-02-12] MEDS: Senna/Docusate Sodium 1 Tablet 2 TABLET GT (21:47)
[2019-02-12] MEDS: Atorvastatin Calcium 80 MG Tablet GT (21:47)
[2019-02-13] VITALS (40 sets, daily range): BP systolic 90–144; BP diastolic 54–94; PULSE 75–139; RESP 12–33; TEMP 37.4–38.8; O2SAT 88–100
[2019-02-13] MEDS: Propofol 10MG/Ml 1,000 MG/100 ML Bottle 14.4 MG CONT INF (00:20)
[2019-02-13] MEDS: guaiFENesin 10 ML UDC (200MG/10ML) GT ×5 (00:25→23:49)
[2019-02-13 00:41] LABS: Bedside Glucose 75 mg/dL (70-110)
[2019-02-13] MEDS: 0.9% Saline Lock 10 ML Syringe IV ×3 (04:06→09:56)
[2019-02-13 04:22] LABS: Absolute Lymphocyte Count 1.73 X10^3/uL (0.83-4.51); Absolute Neutrophil Count 2.9 X10^3/uL (2.0-7.7); Basophil# 0.01 X10^3/uL; Basophil% 0.2 % (0-1); Eosinophil# 0.02 X10^3/uL; Eosinophils% 0.4 % (0-5); Hematocrit 34.8 % (40-54); Hemoglobin 11.1 g/dL (13.0-16.5); Lymphocyte # 1.73 X10^3/ul (4.0); Lymphocyte % 34.5 % (19-41); Mean Corp Hgb Conc 31.9 g/dL (32-36); Mean Corpuscular Hgb 34.2 pg (27.0-32.0); Mean Corpuscular Volume 107.1 fL (80-94); Mean Platelet Vol. 9.9 fl (6.2-12.0); Monocyte# 0.29 X10^3/uL; Monocyte% 5.8 % (0-10); NRBC Flagged by Analyzer 0 % (0-5); Neutrophil # 2.94 X10^3/uL (2.7-7.7); Neutrophil % 58.5 % (47-70); Platelet Count 144 K/mm3 (150-450); RBC Distribution Width CV 15.1 % (11.6-14.6); RBC Distribution Width SD 58.8 fl (35.1-43.9); Red Blood Count 3.25 M/mm3 (4.6-6.2)
[2019-02-13 04:38] LABS: ALB/GLOB Ratio 0.5 RATIO (0.9-2.4); AST(SGOT) 70 U/L (15-37); Alanine Aminotransfer ALT/SGPT 30 U/L (16-61); Albumin, Serum 2.3 g/dL (3.2-5.0); Alkaline Phosphatase 61 U/L (45-117); Anion Gap 5 (5-15); BUN 12 mg/dL (7-18); BUN/Creat Ratio 37.6 RATIO (10-20); Calcium,Total 8.8 mg/dL (8.5-10.1); Chloride 98 mmol/L (98-107); Creatinine, Serum 0.32 mg/dL (0.70-1.30); EST Glomerular Filtration Rate 301 mL/min (>60); Est Glom Filt Rate - Afr Amer 365 mL/min (>60); Estimated Creatinine Clearance 234.53 ml/min; Globulin 4.2 g/dL (2.2-4.2); Glucose 93 mg/dL (74-106); Potassium 3.4 mmol/L (3.5-5.1); Protein, Total 6.5 g/dL (6.4-8.2); Sodium Level 138 mmol/L (136-145)
[2019-02-13] MEDS: Gabapentin 300 MG Capsule GT ×3 (06:19→21:27)
--- NOTE | 2019-02-13 06:27 | PN_ITS ---
Subjective: Patient had tracheostomy yesterday. Patient is not reporting any pain this morning, but nursing reports that patient has grabbed a hold of his PEG tube and there was concern for possible dislodgment. Patient has remained restrained for this reason. Nursing has reported some bloody secretions endotracheally and some swelling around the trach site. No change in respiratory status. Patient has been reinitiated on tube feeds and tolerating well. Blood sugars have required no coverage. General: Alert, Cooperative - On my exam, No apparent distress, - - Good vent synchrony noted HEENT: Atraumatic, PERRLA, EOMI, Normocephalic, - - No scleral icterus or injection noted. Tracheostomy site with some swelling and induration, but no purulent exudate noted. No obvious bleeding appreciated. Trach sutures in place. Oral: Moist Mucosa, No Gingival or Mucosal Lesions/ Ulcerations Neck: Supple, No JVD, No Nodes, Trachea Midline Lungs: No rhonchi, No wheeze, No rales, Diminished, - - Symmetric expansion. No dullness to percussion. Cardiovascular: Regular rate, Regular Rhythm, Normal S1, Normal S2, No murmurs, No rub noted, No Gallop Abdomen: Bowel Sounds Present, Soft, Non Tender, Non-Distended, Obese, - - PEG is clean, dry and intact Extremities: No cyanosis, Clubbing, Edema Skin: No rashes Musculoskeletal: No Tenderness to Palpation of Joints or Extremities Lymphatic: No Cervical, Supraclavicular, or Inguinal Adenopathy Neurological: Cranial nerves II-XII grossly intact, Neuro grossly intact, Motor Exam 5/5 strength throughout Psych/Mental Status: Appropriate, Impulsive Vital Signs Temp Pulse Resp BP Pulse Ox 37.6 C H 84 22 H 122/77 H 93 02/13/19 04:00 02/13/19 05:27 02/13/19 05:27 02/13/19 04:00 02/13/19 05:27 Oxygen Flow Rate (L/min) 45 Oxygen Delivery Method Mechanical Ventilator Weight: 93.5 kg Body Mass Index (BMI) 30.7 Intake and Output for Last 24 Hours 02/11/19 02/12/19 02/13/19 23:59 23:59 23:59 Intake Total 851.75 / 1213.58 1249.98 / 1249.98 116.81 / 116.81 Output Total 1750 / 3550 4050 / 4050 Balance -898.25 / -2336.42 -2800.02 / -2800.02 116.81 / 116.81 Labs (Last 48 Hours) 02/08/19 02/11/19 02/11/19 04:35 10:54 17:55 WBC RBC Hgb Hct MCV MCH MCHC RDW Std Deviation RDW Coeff of Mohsen Plt Count MPV Immature Gran % (Auto) Neut % (Auto) Lymph % (Auto) [place] % (Auto) Eos % (Auto) Baso % (Auto) Absolute Neuts (auto) Absolute Lymphs (auto) Nucleated RBC % PT INR APTT Sodium Potassium Chloride Carbon Dioxide Anion Gap BUN Creatinine Estim Creat Clear Calc Est GFR (MDRD) Af Amer Est GFR (MDRD) Non-Af BUN/Creatinine Ratio Glucose Calcium Total Bilirubin AST ALT Alkaline Phosphatase Total Protein Albumin Globulin Albumin/Globulin Ratio Whole Bld Vitamin B1 104.6 POC Glucose 87 91 02/11/19 02/12/19 02/12/19 22:51 05:00 05:00 WBC 4.9 RBC 2.94 L Hgb 10.4 L Hct 31.4 L MCV 106.8 H MCH 35.4 H MCHC 33.1 RDW Std Deviation 59.8 H RDW Coeff of Mohsen 15.3 H Plt Count 149 L MPV 9.9 Immature Gran % (Auto) 0.800 Neut % (Auto) 55.2 Lymph % (Auto) 36.5 [place] % (Auto) 6.5 Eos % (Auto) 0.8 Baso % (Auto) 0.2 Absolute Neuts (auto) 2.7 Absolute Lymphs (auto) 1.79 Nucleated RBC % 0 PT INR APTT Sodium 137 Potassium 3.2 L Chloride 97 L Carbon Dioxide 36.0 H Anion Gap 4 L BUN 13 Creatinine 0.24 L Estim Creat Clear Calc 323.22 Est GFR (MDRD) Af Amer 516 Est GFR (MDRD) Non-Af 427 BUN/Creatinine Ratio 55.1 H Glucose 85 Calcium 7.9 L Total Bilirubin 0.70 AST 60 H ALT 27 Alkaline Phosphatase 53 Total Protein 5.8 L Albumin 2.0 L Globulin 3.8 Albumin/Globulin Ratio 0.5 L Whole Bld Vitamin B1 POC Glucose 84 02/12/19 02/12/19 02/12/19 05:36 06:30 11:12 WBC RBC Hgb Hct MCV MCH MCHC RDW Std Deviation RDW Coeff of Mohsen Plt Count MPV Immature Gran % (Auto) Neut % (Auto) Lymph % (Auto) [place] % (Auto) Eos % (Auto) Baso % (Auto) Absolute Neuts (auto) Absolute Lymphs (auto) Nucleated RBC % PT 12.7 INR 1.0 APTT 30.8 Sodium Potassium Chloride Carbon Dioxide Anion Gap BUN Creatinine Estim Creat Clear Calc Est GFR (MDRD) Af Amer Est GFR (MDRD) Non-Af BUN/Creatinine Ratio Glucose Calcium Total Bilirubin AST ALT Alkaline Phosphatase Total Protein Albumin Globulin Albumin/Globulin Ratio Whole Bld Vitamin B1 POC Glucose 73 89 02/12/19 02/13/19 02/13/19 18:24 00:22 04:12 WBC 5.0 RBC 3.25 L Hgb 11.1 L Hct 34.8 L MCV 107.1 H MCH 34.2 H MCHC 31.9 L RDW Std Deviation 58.8 H RDW Coeff of Mohsen 15.1 H Plt Count 144 L MPV 9.9 Immature Gran % (Auto) 0.600 Neut % (Auto) 58.5 Lymph % (Auto) 34.5 [place] % (Auto) 5.8 Eos % (Auto) 0.4 Baso % (Auto) 0.2 Absolute Neuts (auto) 2.9 Absolute Lymphs (auto) 1.73 Nucleated RBC % 0 PT INR APTT Sodium Potassium Chloride Carbon Dioxide Anion Gap BUN Creatinine Estim Creat Clear Calc Est GFR (MDRD) Af Amer Est GFR (MDRD) Non-Af BUN/Creatinine Ratio Glucose Calcium Total Bilirubin AST ALT Alkaline Phosphatase Total Protein Albumin Globulin Albumin/Globulin Ratio Whole Bld Vitamin B1 POC Glucose 87 75 02/13/19 04:12 WBC RBC Hgb Hct MCV MCH MCHC RDW Std Deviation RDW Coeff of Mohsen Plt Count MPV Immature Gran % (Auto) Neut % (Auto) Lymph % (Auto) [place] % (Auto) Eos % (Auto) Baso % (Auto) Absolute Neuts (auto) Absolute Lymphs (auto) Nucleated RBC % PT INR APTT Sodium 138 Potassium 3.4 L Chloride 98 Carbon Dioxide 35.0 H Anion Gap 5 BUN 12 Creatinine 0.32 L Estim Creat Clear Calc 234.53 Est GFR (MDRD) Af Amer 365 Est GFR (MDRD) Non-Af 301 BUN/Creatinine Ratio 37.6 H Glucose 93 Calcium 8.8 Total Bilirubin 0.70 AST 70 H ALT 30 Alkaline Phosphatase 61 Total Protein 6.5 Albumin 2.3 L Globulin 4.2 Albumin/Globulin Ratio 0.5 L Whole Bld Vitamin B1 POC Glucose Clinical Impression(s) from Imaging Studies Chest X-Ray 02/12/19 15:30 IMPRESSION: Placement of tracheostomy tube. Lungs are essentially clear. Electronically Signed: Braden Gannon DO at 16:24 EST Tel , Service support , Medical Necessity - Tobacco Use Smoking Status: Current every day smoker Tobacco Use: Cigarettes Assessment/Plan All Active Problems CVA (cerebral vascular accident) (Ruled-out) Slurred speech (Acute) COPD exacerbation (Acute) RECOMMENDATIONS: 1. Continue assist control ventilation. Okay to attempt to discontinue sedation 2. Possible transition to p.o. pain medications 3. Await ENT evaluation of trach site 4. Increase Seroquel dosing 5. Continue bronchodilators. Discontinue prednisone. Continue IPPV for pulmonary toileting 6. Likely okay to reinitiate Lovenox therapy this evening 7. Continue appropriate ICU prophylaxis. IMPRESSIONS: 1. Acute on chronic hypoxemic respiratory failure secondary to presumed aspiration pneumonia Patient continues to have significant issues with mucus plugging leading to respiratory decompensation during trials. Patient has had some oozing following tracheostomy, but this does not appear to be hemodynamically significant. Continue aggressive pulmonary toileting with IPPV. Wean oxygen as tolerated. We will hold on Lovenox this morning, but possibly resume this evening pending ENT evaluation. 2. Septic shock secondary to presumed aspiration pneumonia Patient has been able to come off of pressor therapy at this point. Patient has completed the 10-day course of antibiotics. Blood pressures are slightly decreased this morning, but this is likely secondary to increased sedation requirements. Patient will have Seroquel increased. Patient is not currently on antibiotics. 3. COPD with exacerbation Inciting etiology appears to be aspiration event and possible pulmonary emboli. Continue current supportive measures as noted above along with bronchodilators and steroids. Wean oxygen as tolerated. Prednisone discontinued secondary to completing taper. 4. Slurred speech Intubated and sedated. This can be reevaluated once patient starts trach mask trials. 5. History of venous thrombi embolic disease/hypertension/hyperlipidemia/seizure disorder/continuous tobacco dependen cy Complicates care, management, recovery and prognosis. Hold home antihypertensives and diuretics for now. Continue antiepileptics. Anticipate transition to long-term acute care center Tuesday 6. Hyperkalemia Patient receiving aggressive diuresis at this time. Potassium appears to remain stable with current supplementation regimen TIME: 32 minutes of critical care time, independent of procedures, was spent addressing the patient's acute on chronic hypoxemic respiratory failure, COPD with exacerbation, review of all data and collaboration with the care team. (5:45 AM to 6:30 AM) Code Visit 9xxxx: [id number] Critical care first hour
[2019-02-13] MEDS: Ipratropium/Albuterol Sulfate 3 ML AMPUL.NEB INHALATION ×2 (06:34→18:35)
[2019-02-13] MEDS: TITRATION PARAMETER CHANGE 1 EACH IV (07:07)
[2019-02-13] MEDS: fentaNYL drip 100 ML 5 MCG IV (08:00)
[2019-02-13] MEDS: Acetaminophen 650 MG/20 ML UDC GT ×3 (08:10→23:49)
[2019-02-13] MEDS: Chlorhexidine 15 ML PO ×2 (09:37→21:25)
[2019-02-13] MEDS: CHLORHEXIDINE GLUC 2% CLOTH 1 EACH TOWELETTE TOPICAL (09:37)
[2019-02-13] MEDS: Lansoprazole 15 MG Capsule.DR 30 MG GT (09:38)
[2019-02-13] MEDS: Senna/Docusate Sodium 1 Tablet 2 TABLET GT (09:38)
[2019-02-13] MEDS: Furosemide 40 MG/4 ML Vial IV ×2 (09:38→17:21)
[2019-02-13] MEDS: LORazepam 1 MG Tablet 2 MG GT ×2 (11:04→17:20)
--- NOTE | 2019-02-13 16:00 | CASEMGMT ---
RN CM Note. Call and message left with Chely Wills re: possible dc tomorrow. -insurance precert has been started by [facility] earlier today. Tari NOVAKN RN ACM
--- NOTE | 2019-02-13 18:04 | PCM.PN.BLA ---
Progress Note The patient has had some oozing from the trach site today. avss trach- in place and patent. No subcutaneous air. Cuff up and appropriate. sutures intact. No bleeding. There is some mild blood tinged mucous coming from around the tube itself. A: POD #1 s/p tracheotomy P: continue trach care May start lovenox tomorrow if he continues to do well. STROKE Vital Signs/Narrative: Vital Signs Pulse Resp Pulse Ox 02/13/19 16:11 104 H 20 H 99 02/13/19 15:55 103 H
--- NOTE | 2019-02-13 18:46 | PCM.PROGNOTE ---
Patient Problems: Active and Suspected Problems Slurred speech (Acute) Subjective: Patient seen and examined in the ICU today, he remains somnolent and on the ventilator, patient had a tracheostomy placed yesterday. He responds to voice by opening his eyes. - Physical Exam Vitals/I&O's: Vital Signs Temp Pulse Resp BP Pulse Ox 101.5 F H 115 H 21 H 120/75 95 02/13/19 18:00 02/13/19 18:00 02/13/19 18:00 02/13/19 18:00 02/13/19 18:00 Oxygen Flow Rate (L/min) 45 Oxygen Delivery Method Mechanical Ventilator Weight: 93.5 kg Body Mass Index (BMI) 30.7 Intake and Output for Last 24 Hours 02/11/19 02/12/19 02/13/19 23:59 23:59 23:59 Intake Total 851.75 / 1213.58 1249.98 / 1249.98 1207.06 / 1207.06 Output Total 1750 / 3550 4050 / 4050 1150 / 1150 Balance -898.25 / -2336.42 -2800.02 / -2800.02 57.06 / 57.06 General: No apparent distress, Well developed, Lethargic HEENT: Atraumatic, PERRLA, EOMI, Normocephalic Oral: Moist Mucosa Neck: Supple, No Nuchal Rigidity, Trachea Midline, Thyroid Normal Size and Texture Lungs: Clear to auscultation, Normal air movement, No rhonchi, No wheeze, No rales Cardiovascular: Regular rate, Regular Rhythm, Normal S1, Normal S2, No murmurs, PMI Normal, No rub noted Abdomen: Bowel Sounds Present, Soft, Non Tender, Non-Distended Extremities: No clubbing, No cyanosis, No edema, Capillary Refill Less than 3 Seconds Skin: No rashes, No breakdown Neurological: - - Patient is sedated and on the ventilator Psych/Mental Status: - - Patient is sedated and on the ventilator Microbiology Past 72 Hours 02/08/19 10:15 Blood Culture (Wb) - No Site/Description Given Blood Culture - Final No growth in 5 days. 02/08/19 09:38 Blood Culture (Wb) - Pic Blood Culture - Final No growth in 5 days. Laboratory Results 01/26/19 06:45: RBC Folate Hemolysate , RBC Folate Not Reportable, Hematocrit Not Reportable 02/08/19 04:35: Whole Bld Vitamin B1 104.6 02/13/19 00:22: POC Glucose 75 02/13/19 04:12: WBC 5.0, RBC 3.25 L, Hgb 11.1 L, Hct 34.8 L, MCV 107.1 H, MCH 34.2 H, MCHC 31.9 L, RDW Std Deviation 58.8 H, RDW Coeff of Mohsen 15.1 H, Plt Count 144 L, MPV 9.9, Immature Gran % (Auto) 0.600, Neut % (Auto) 58.5, Lymph % (Auto) 34.5, Hawkins % (Auto) 5.8, Eos % (Auto) 0.4, Baso % (Auto) 0.2, Absolute Neuts (auto) 2.9, Absolute Lymphs (auto) 1.73, Nucleated RBC % 0 02/13/19 04:12: Sodium 138, Potassium 3.4 L, Chloride 98, Carbon Dioxide 35.0 H, Anion Gap 5, BUN 12, Creatinine 0.32 L, Estim Creat Clear Calc 234.53, Est GFR (MDRD) Af Amer 365, Est GFR (MDRD) Non-Af 301, BUN/Creatinine Ratio 37.6 H, Glucose 93, Calcium 8.8, Total Bilirubin 0.70, AST 70 H, ALT 30, Alkaline Phosphatase 61, Total Protein 6.5, Albumin 2.3 L, Globulin 4.2, Albumin/Globulin Ratio 0.5 L Current Medications Acetaminophen (Tylenol Liquid) 650 mg GT Q6H PRN PRN PRN Reason: TEMP>101 Last Admin: 02/13/19 17:28 Dose: 650 mg Documented by: Al Hydroxide/Mg Hydroxide (Mylanta Ii) 15 - 30 ml PO Q4H PRN PRN PRN Reason: INDIGESTION Albuterol Sulfate (Ventolin Aerosols) 2.5 mg INHALATION Q2H PRN PRN PRN Reason: dyspnea, wheezing Last Admin: 01/26/19 09:26 Dose: 2.5 mg Documented by: Albuterol/Ipratropium (Duoneb) 3 ml INHALATION Q4HWA.RT ELVER Last Admin: 02/13/19 18:35 Dose: 3 ml Documented by: Atorvastatin Calcium (Lipitor) 80 mg GT QHS [facility] Last Admin: 02/12/19 21:47 Dose: 80 mg Documented by: Chlorhexidine Gluconate () 15 ml PO BID [facility] Last Admin: 02/13/19 09:37 Dose: 15 ml Documented by: Chlorhexidine Gluconate () 1 each TOPICAL DAILY [facility] Last Admin: 02/13/19 09:37 Dose: 1 each Documented by: Dextrose (D50w Syringe) 0 gm IV X1 PRN; Protocol PRN Reason: Hypoglycemia Divalproex Sodium (Depakote Er) 500 mg PO 0700,1300 [facility] Last Admin: 01/26/19 13:30 Dose: Not Given Documented by: Divalproex Sodium (Depakote Er) 1,000 mg PO QHS [facility] Last Admin: 01/25/19 21:41 Dose: 1,000 mg Documented by: Furosemide (Lasix) 40 mg IV BID@1000,1800 [facility] Last Admin: 02/13/19 17:21 Dose: 40 mg Documented by: Gabapentin (Neurontin) 300 mg GT TID [facility] Last Admin: 02/13/19 13:07 Dose: 300 mg Documented by: Glucagon () 1 mg IM .X1 PRN PRN Reason: Hypoglycemia Guaifenesin (Robitussin) 10 ml GT Q6H PRN Guaifenesin (Robitussin) 10 ml GT Q6H [facility] Last Admin: 02/13/19 17:20 Dose: 10 ml Documented by: Sodium Chloride () 250 mls @ 15 mls/hr IV .[id number] PRN PRN Reason: Saline Flush Last Infusion: 02/13/19 16:14 Dose: Infused Documented by: Enteral Nutritional Formula (Vital Af 1.2 Truong Liquid) 1,000 mls @ 60 mls/hr GT .[id number] [facility] Last Admin: 02/12/19 20:43 Dose: 30 mls/hr Documented by: Fentanyl () 100 mls @ 15 mls/hr IV UD [facility]; Protocol Last Titration: 02/13/19 17:00 Dose: 75 mcg/hr, 7.5 mls/hr Documented by: Lansoprazole (Lansoprazole) 30 mg GT DAILY [facility] Last Admin: 02/13/19 09:38 Dose: 30 mg Documented by: Lorazepam (Ativan) 2 mg GT Q4H PRN PRN PRN Reason: ANXIETY/AGITATION Last Admin: 02/13/19 17:20 Dose: 2 mg Documented by: Magnesium Hydroxide (Milk Of Magnesia) 30 ml GT DAILY PRN PRN Reason: Constipation Last Admin: 01/30/19 09:33 Dose: 30 ml Documented by: Nicotine (Nicoderm Cq (Pbkc)) 21 mg TRANSDERM. DAILY [facility] Last Admin: 02/13/19 09:38 Dose: 21 mg Documented by: Nitroglycerin (Nitrostat) 0.4 mg SUBLINGUAL Q5M PRN PRN Reason: CARDIAC/CHEST PAIN Ondansetron HCl (Zofran) 4 mg IV Q8H PRN PRN PRN Reason: NAUSEA/VOMITING Potassium Chloride (Potassium Chl Soln) 40 meq GT DAILY [facility] Quetiapine Fumarate 100 mg/ (Quetiapine Fumarate 50 mg) 150 mg GT BID [facility] Last Admin: 02/13/19 09:40 Dose: 150 mg Documented by: Senna/Docusate Sodium (Senokot-S, Lila-Colace) 2 tablet GT BID [facility] Last Admin: 02/13/19 09:38 Dose: 2 tablet Documented by: Sodium Chloride () 10 - 40 ml IV UD PRN PRN Reason: SALINE FLUSH Last Admin: 02/13/19 09:56 Dose: 10 ml Documented by: Throat Lozenges (Cepacol Sore Throat Lozenge) 1 lozenge MUCOUS MEM Q2H PRN PRN PRN Reason: COUGH Valproic Acid (Depakene) 500 mg GT 4X/DAY [facility] Last Admin: 02/13/19 17:20 Dose: 500 mg Documented by: Medical Necessity - Tobacco Use Smoking Status: Current every day smoker Tobacco Use: Cigarettes Assessment/Plan All Active Problems CVA (cerebral vascular accident) (Ruled-out) Slurred speech (Acute) COPD exacerbation (Acute) #1 septic shock secondary to aspiration pneumonia-Haemophilus influenza and Streptococcus pneumoniae-patient has completed regimen of IV antibiotics #2 acute on chronic hypoxemic respiratory failure secondary to aspiration pneumonia and septic shock-postop day #1 tracheostomy-ventilator is managed by pulmonary medicine #3 exacerbation of COPD #4 pulmonary emboli #5 seizure disorder #6 essential hypertension #7 hyperlipidemia Code Visit Inpatient E&M: 42832 Subs Hosp L2
[2019-02-13] MEDS: fentaNYL drip 100 ML 7.5 MCG IV (21:22)
[2019-02-13] MEDS: Atorvastatin Calcium 80 MG Tablet GT (21:28)
[2019-02-14] VITALS (20 sets, daily range): BP systolic 101–136; BP diastolic 54–79; PULSE 93–128; RESP 12–32; TEMP 37.6–38.4; O2SAT 90–98
[2019-02-14] MEDS: Vital AF 1.2 Cal Liquid 1,000 ML 60 ML GT (01:17)
[2019-02-14] MEDS: CHLORHEXIDINE GLUC 2% CLOTH 1 EACH TOWELETTE TOPICAL (03:49)
[2019-02-14] MEDS: 0.9% Saline Lock 10 ML Syringe IV (04:04)
[2019-02-14 04:23] LABS: Absolute Lymphocyte Count 1.56 X10^3/uL (0.83-4.51); Absolute Neutrophil Count 3.2 X10^3/uL (2.0-7.7); Basophil# 0.01 X10^3/uL; Basophil% 0.2 % (0-1); Eosinophil# 0.03 X10^3/uL; Eosinophils% 0.6 % (0-5); Hematocrit 32.8 % (40-54); Hemoglobin 10.4 g/dL (13.0-16.5); Lymphocyte # 1.56 X10^3/ul (4.0); Lymphocyte % 29.9 % (19-41); Mean Corp Hgb Conc 31.7 g/dL (32-36); Mean Corpuscular Hgb 33.8 pg (27.0-32.0); Mean Corpuscular Volume 106.5 fL (80-94); Mean Platelet Vol. 9.9 fl (6.2-12.0); Monocyte# 0.43 X10^3/uL; Monocyte% 8.3 % (0-10); NRBC Flagged by Analyzer 0 % (0-5); Neutrophil # 3.15 X10^3/uL (2.7-7.7); Neutrophil % 60.4 % (47-70); Platelet Count 125 K/mm3 (150-450); RBC Distribution Width CV 15.6 % (11.6-14.6); RBC Distribution Width SD 60.8 fl (35.1-43.9); Red Blood Count 3.08 M/mm3 (4.6-6.2); White Blood Count 5.2 K/mm3 (4.4-11.0)
[2019-02-14 04:44] LABS: Anion Gap 4 (5-15); BUN 13 mg/dL (7-18); BUN/Creat Ratio 46.9 RATIO (10-20); Calcium,Total 8.5 mg/dL (8.5-10.1); Chloride 99 mmol/L (98-107); Creatinine, Serum 0.28 mg/dL (0.70-1.30); EST Glomerular Filtration Rate 355 mL/min (>60); Est Glom Filt Rate - Afr Amer 429 mL/min (>60); Estimated Creatinine Clearance 268.04 ml/min; Glucose 96 mg/dL (74-106); Magnesium 1.9 mg/dL (1.6-2.6); Phosphorus 3.9 mg/dL (2.5-4.9); Potassium 3.3 mmol/L (3.5-5.1); Sodium Level 138 mmol/L (136-145)
[2019-02-14] MEDS: Gabapentin 300 MG Capsule GT (06:28)
[2019-02-14] MEDS: Ipratropium/Albuterol Sulfate 3 ML AMPUL.NEB INHALATION ×2 (06:40→11:07)
[2019-02-14] MEDS: guaiFENesin 10 ML UDC (200MG/10ML) GT ×2 (06:53→12:12)
--- NOTE | 2019-02-14 06:53 | PN_ITS ---
Subjective: Patient did well overnight. No acute issues were reported. Patient was able to be taken off a fentanyl drip at approximately 2 AM. Patient did have some fever, but no change in secretions reported. Patient did have a spontaneous breathing trial this morning, but became tachypneic after approximately 45 minutes. Bleeding from the trach site has resolved. Some serosanguineous secretions noted on dressing. General: Alert, Cooperative, No apparent distress, - - Nods head to questions HEENT: Atraumatic, PERRLA, EOMI, Normocephalic, - - Trach site is clean, dry and intact Oral: Moist Mucosa, No Gingival or Mucosal Lesions/ Ulcerations Neck: Supple, No JVD, No Nodes, Trachea Midline Lungs: No rhonchi, No wheeze, No rales, Diminished Cardiovascular: Regular rate, Regular Rhythm, Normal S1, Normal S2, No murmurs, No rub noted, No Gallop Abdomen: Bowel Sounds Present, Soft, Non Tender, Non-Distended, - - PEG is clean, dry and intact Extremities: No cyanosis, Clubbing, Edema Skin: No rashes Musculoskeletal: No Tenderness to Palpation of Joints or Extremities Lymphatic: No Cervical, Supraclavicular, or Inguinal Adenopathy Neurological: Cranial nerves II-XII grossly intact, Neuro grossly intact, Motor Exam 5/5 strength throughout Psych/Mental Status: Appropriate, Flat Affect Vital Signs Temp Pulse Resp BP Pulse Ox 37.7 C H 98 22 H 118/67 93 02/14/19 06:00 02/14/19 06:00 02/14/19 06:00 02/14/19 06:00 02/14/19 06:00 Oxygen Flow Rate (L/min) 45 Oxygen Delivery Method Mechanical Ventilator Weight: 91.9 kg Body Mass Index (BMI) 30.7 Intake and Output for Last 24 Hours 02/12/19 02/13/19 02/14/19 23:59 23:59 23:59 Intake Total 1249.98 / 1249.98 1312.06 / 1793.06 782.00 / 782.00 Output Total 4050 / 4050 1150 / 1800 900 / 900 Balance -2800.02 / -2800.02 162.06 / -6.94 -118.00 / -118.00 Labs (Last 48 Hours) 01/26/19 02/08/19 02/12/19 06:45 04:35 06:30 WBC RBC Hgb Hct MCV MCH MCHC RDW Std Deviation RDW Coeff of Mohsen Plt Count MPV Immature Gran % (Auto) Neut % (Auto) Lymph % (Auto) Calloway % (Auto) Eos % (Auto) Baso % (Auto) Absolute Neuts (auto) Absolute Lymphs (auto) Nucleated RBC % PT 12.7 INR 1.0 APTT 30.8 Sodium Potassium Chloride Carbon Dioxide Anion Gap BUN Creatinine Estim Creat Clear Calc Est GFR (MDRD) Af Amer Est GFR (MDRD) Non-Af BUN/Creatinine Ratio Glucose Calcium Phosphorus Magnesium Total Bilirubin AST ALT Alkaline Phosphatase Total Protein Albumin Globulin Albumin/Globulin Ratio Whole Bld Vitamin B1 104.6 RBC Folate Hemolysate RBC Folate Not Reportable Hematocrit Not Reportable POC Glucose 02/12/19 02/12/19 02/13/19 11:12 18:24 00:22 WBC RBC Hgb Hct MCV MCH MCHC RDW Std Deviation RDW Coeff of Mohsen Plt Count MPV Immature Gran % (Auto) Neut % (Auto) Lymph % (Auto) Calloway % (Auto) Eos % (Auto) Baso % (Auto) Absolute Neuts (auto) Absolute Lymphs (auto) Nucleated RBC % PT INR APTT Sodium Potassium Chloride Carbon Dioxide Anion Gap BUN Creatinine Estim Creat Clear Calc Est GFR (MDRD) Af Amer Est GFR (MDRD) Non-Af BUN/Creatinine Ratio Glucose Calcium Phosphorus Magnesium Total Bilirubin AST ALT Alkaline Phosphatase Total Protein Albumin Globulin Albumin/Globulin Ratio Whole Bld Vitamin B1 RBC Folate Hemolysate RBC Folate Hematocrit POC Glucose 89 87 75 02/13/19 02/13/19 02/14/19 04:12 04:12 04:05 WBC 5.0 5.2 RBC 3.25 L 3.08 L Hgb 11.1 L 10.4 L Hct 34.8 L 32.8 L MCV 107.1 H 106.5 H MCH 34.2 H 33.8 H MCHC 31.9 L 31.7 L RDW Std Deviation 58.8 H 60.8 H RDW Coeff of Mohsen 15.1 H 15.6 H Plt Count 144 L 125 L MPV 9.9 9.9 Immature Gran % (Auto) 0.600 0.600 Neut % (Auto) 58.5 60.4 Lymph % (Auto) 34.5 29.9 Calloway % (Auto) 5.8 8.3 Eos % (Auto) 0.4 0.6 Baso % (Auto) 0.2 0.2 Absolute Neuts (auto) 2.9 3.2 Absolute Lymphs (auto) 1.73 1.56 Nucleated RBC % 0 0 PT INR APTT Sodium 138 Potassium 3.4 L Chloride 98 Carbon Dioxide 35.0 H Anion Gap 5 BUN 12 Creatinine 0.32 L Estim Creat Clear Calc 234.53 Est GFR (MDRD) Af Amer 365 Est GFR (MDRD) Non-Af 301 BUN/Creatinine Ratio 37.6 H Glucose 93 Calcium 8.8 Phosphorus Magnesium Total Bilirubin 0.70 AST 70 H ALT 30 Alkaline Phosphatase 61 Total Protein 6.5 Albumin 2.3 L Globulin 4.2 Albumin/Globulin Ratio 0.5 L Whole Bld Vitamin B1 RBC Folate Hemolysate RBC Folate Hematocrit POC Glucose 02/14/19 04:05 WBC RBC Hgb Hct MCV MCH MCHC RDW Std Deviation RDW Coeff of Mohsen Plt Count MPV Immature Gran % (Auto) Neut % (Auto) Lymph % (Auto) Calloway % (Auto) Eos % (Auto) Baso % (Auto) Absolute Neuts (auto) Absolute Lymphs (auto) Nucleated RBC % PT INR APTT Sodium 138 Potassium 3.3 L Chloride 99 Carbon Dioxide 35.0 H Anion Gap 4 L BUN 13 Creatinine 0.28 L Estim Creat Clear Calc 268.04 Est GFR (MDRD) Af Amer 429 Est GFR (MDRD) Non-Af 355 BUN/Creatinine Ratio 46.9 H Glucose 96 Calcium 8.5 Phosphorus 3.9 Magnesium 1.9 Total Bilirubin AST ALT Alkaline Phosphatase Total Protein Albumin Globulin Albumin/Globulin Ratio Whole Bld Vitamin B1 RBC Folate Hemolysate RBC Folate Hematocrit POC Glucose Microbiology 02/08/19 10:15 Blood Culture (Wb) - No Site/Description Given Blood Culture - Final No growth in 5 days. 02/08/19 09:38 Blood Culture (Wb) - Pic Blood Culture - Final No growth in 5 days. Medical Necessity - Tobacco Use Smoking Status: Current every day smoker Tobacco Use: Cigarettes Assessment/Plan All Active Problems CVA (cerebral vascular accident) (Ruled-out) Slurred speech (Acute) COPD exacerbation (Acute) RECOMMENDATIONS: 1. Continue assist control ventilation. 2. Discontinue fentanyl drip. Add pain medications through PEG tube if necessary 3. Await ENT evaluation of trach site 4. Continue Seroquel dosing, possibly wean over the next 5 to 7 days 5. Continue bronchodilators. Completed prednisone taper. Continue IPPV for pulmonary toileting 6. Likely okay to reinitiate Lovenox therapy 7. Okay to transfer to the long-term acute care from my perspective IMPRESSIONS: 1. Acute on chronic hypoxemic respiratory failure secondary to presumed aspiration pneumonia/PE/advanced COPD Patient continues to have significant issues with mucus plugging leading to respiratory decompensation during trials. Patient has had some oozing follow ing tracheostomy, but this has improved. Patient okay to be initiated on Lovenox therapy. Continue aggressive pulmonary toileting with IPPV. Wean oxygen as tolerated. We will hold on Lovenox this morning, but possibly resume this evening pending ENT evaluation. Patient will need to be on anticoagulation for 6 months 2. Septic shock secondary to presumed aspiration pneumonia Patient has been able to come off of pressor therapy for some time at this point. Patient has completed the 10-day course of antibiotics. Blood pressure has remained stable. Patient appears to be calm on current dose of Seroquel. This can likely be weaned over the next 5 to 7 days as patient adjusts to tracheostomy. Patient is not currently on antibiotics. 3. COPD with exacerbation Inciting etiology appears to be aspiration event and possible pulmonary emboli. Continue current supportive measures as noted above along with bronchodilators. Patient completed steroid wean. Wean oxygen as tolerated. 4. Slurred speech Intubated and sedated. This can be reevaluated once patient starts trach mask/PMV trials. 5. History of venous thrombi embolic disease/hypertension/hyperlipidemia/seizure disorder/continuous tobacco dependency Complicates care, management, recovery and prognosis. May need to reinitiate baseline antihypertensives and diuretics in a stepwise fashion. Continue antiepileptics. Anticipate transition to long-term acute care center today or tomorrow 6. Hyperkalemia Patient receiving aggressive diuresis at this time. Potassium appears to remain stable with current supplementation regimen Code Visit Inpatient E&M: 19475 [facility] L3
--- NOTE | 2019-02-14 09:50 | NS ---
Upon discharge, recommend continue Vital AF 1.2 via PEG at goal rate of 60mL/hour w/ 100mL H2O flush every 4 hours to provide 1728 calories, 108 g protein, and 1767 mL total fluid per day.
--- NOTE | 2019-02-14 10:21 | CASEMGMT ---
Addendum entered by Nikita Solano 02/14/19 11:38: Transportation has been arranged for 1 PM per commercial banker. Transfer to extended care form, medication list, and updated clinicals and progress note faxed to [facility]. Call placed to [place] and she was made aware of transportation time and faxed information. She states she will review and let RN CM know if she needs any further information. Original Note: RN STUART NOTE Call received from [facility]. She states Insurance approval has been received from [facility]. Dr Car made aware. SHAREPOINT APPLICATION ARCHITECT, Vidhi, made aware. RN to RN nursing report to be called to [phone]. Vidhi, SHAREPOINT APPLICATION ARCHITECT, made aware. [place] requests that either an extra trach or obturator be sent with pt. CPS and Dr Gee made aware. Per Dr Gee, the cost of this item is approx $400 and he requests that this be returned to [facility] if it is not used en route to [facility]. Kiran Sy [place] made aware and is agreeable to having the trach returned to [facility] if it is not used in transport. She was made aware trach to be returned to: [facility] ICU: Attention Maria G Fredy Wills and several other family members at bedside. They were made aware insurance approval has been received and pt will be transferring to [facility] today. ICU commercial banker notified and will set up transportation. Radha BAÑUELOS RN, CM
[2019-02-14] MEDS: Furosemide 40 MG/4 ML Vial IV (10:38)
[2019-02-14] MEDS: Lansoprazole 15 MG Capsule.DR 30 MG GT (10:44)
[2019-02-14] MEDS: Enoxaparin 100 MG/ML Syringe 90 MG SC (11:07)
--- NOTE | 2019-02-14 11:12 | PCM.TXEXTCAR ---
- Diet 01/26/19 19:05 NPO [Diet: Nothing Per Oral] Is pt able to select menu?: NO - Routine Orders/Code Status Routine Lab Work: BMP - 02/15/19 - Wound(s) LT Buttock Wound Type: shearing - Therapies Physical Therapy: Eval and Treat Occupational Therapy: Eval and Treat Speech Therapy: Eval and Treat - Problem/Diagnosis (1) Aspiration pneumonia Status: Acute Current Visit: Yes (2) Chronic respiratory failure with hypoxia Status: Chronic Current Visit: Yes (3) COPD exacerbation Status: Acute Current Visit: No (4) HTN (hypertension) Status: Chronic Current Visit: No (5) History of pulmonary embolism Status: Chronic Current Visit: No (6) Seizure disorder Status: Chronic Current Visit: No - Allergies/Procedures Done in Hospital Allergies/Adverse Reactions: Allergies No Known Allergies Allergy (Verified 01/23/19 17:51) Procedures: Peg tube placement, - - TRACH - Type of Care/Length of Stay Estimated LOS: Convalescent Care Less Than 30 days Type of Care Needed: LTAC Rehab Potential: Good Prognosis: Good - Additional Orders/Day of Discharge Additional Orders: VENT SETTINGS: FIO2:.50, PEEP: 5, A/C: 12, VT: 450CC H&P will serve as current which was dated: 01/23/19 Day of Discharge: 02/14/19 - Dietary and Speech Recommendations Dietitian Recommendations/Changes: Recommend continue Vital AF 1.2 via PEG at goal rate of 60mL/hour w/ 100mL H2O flush every 4 hours to provide 1728 calories, 108 g protein, and 1767 mL total fluid per day. Speech Linguistic Eval Summary: Pt admitted to [facility] with dyspnea, cough, wheezing, ongoing slurred speech, possible CVA. PMHx: tobacco use, HLD, hx DVT, hx of pulmonary embolis, seizure disorder, COPD, chronic resp failure with hypoxia. Pt is oriented WNL. Pt is expressing himself with slurred speech, 75% intelligible to this unfamiliar listener. Pt is having a good conversation, expressing self with good word recall. Pt recalling recent events well. Pt agreeable to treatment to improve speech intelligibility. - Follow Up Care Primary Care Physician: Josefina Newby MD [Primary Care Provider] - Please Follow Up With: Josefina Newby MD
[2019-02-14] MEDS: Chlorhexidine 15 ML PO (11:13)
--- NOTE | 2019-02-14 12:06 | CASEMGMT ---
HENRIETTA did call [facility], as a palliative care referral had been made earlier in this hospitalization. HENRIETTA let Darshana know pt is going to [facility] today. ERICKA Easton
[2019-02-14] MEDS: LORazepam 1 MG Tablet 2 MG GT (12:14)
--- NOTE | 2019-02-14 12:41 | CHAPLAIN ---
Type of Pastoral Visit ___ Initial Visit _x__ Follow-up Visit ___ On-call Visit ___ General Patient Visit ___ Spiritual Assessment ___ Family Conference ___ Bereavement ___ Rapid Response ___ Code Blue ___ Other (describe below) Pastoral Care Referral From ___ Patient ___ Family ___ Nurse ___ Physician ___ Director [employer] News ___ Accounts Collector _x__ Other (describe below) Sacrament/Intervention ___ Active listening ___ Anointing ___ Rastafari ___ Bereavement ___ Communion ___ Gabby exploration ___ ___ Life review _x__ Prayer ___ Reconciliation ___ Sacrament of Sick _x__ Supportive presence ___ Wedding ___ Other (describe below) Pastoral Comments
[2019-02-14] MEDS: Acetaminophen 650 MG/20 ML UDC GT (13:38)
--- NOTE | 2019-02-15 17:45 | DS.PCM_ITS ---
Discharge Date and Diagnosis Date of Admission: 01/23/19 Date of Discharge: 02/14/19 - Primary Discharge Diagnosis #1 septic shock secondary to aspiration pneumonia-Haemophilus influenza and Streptococcus pneumoniae #2 acute on chronic hypoxemic respiratory failure secondary to aspiration pneum onia and septic shock #3 exacerbation of COPD #4 pulmonary emboli #5 seizure disorder #6 essential hypertension #7 hyperlipidemia - Secondary Discharge Diagnosis Chronic Problems Chronic respiratory failure with hypoxia (Chronic) Tobacco use (Chronic) HTN (hypertension) (Chronic) HLD (hyperlipidemia) (Chronic) Ulcer of right lower extremity with fat layer exposed (Chronic) Lower extremity edema (Chronic) History of DVT (deep vein thrombosis) (Chronic) History of pulmonary embolism (Chronic) Seizure disorder (Chronic) COPD (chronic obstructive pulmonary disease) (Chronic) Hospital Course and Treatment Operations: None, - - Tracheostomy Procedures: 2-D Echocardiogram, Peg tube placement Summary of Care Provided: The patient is a 63 year old M who was seen in the emergency room at [facility] chief complaint of shortness of breath, patient also gave a complaint of slurred speech for 48 hours. Work-up in the emergency room revealed his pulse ox to be 97% on 4 L, patient was given IV Solu-Medrol and DuoNeb aerosols, chemistries are unremarkable except for sodium 132, INR was 2.3-patient was on warfarin at home. Chest x-ray showed multiple old bilateral rib fractures but no acute cardiopulmonary disease. Brain CT showed chronic involutional changes of the brain. Patient was admitted for exacerbation of COPD and possible TIA, he was seen in consultation by neurology if an MRI of the brain reported nothing acute, MRA of the head and neck reported no hemodynamically significant stenosis or occlusion. Neurology felt it was unlikely he had a TIA and they did not feel he had a stroke. Patient was admitted to PCU but his respiratory status deteriorated and patient reported he had a coughing episode while eating breakfast and he had an acute desaturation of his O2. Pulmonary medicine was consulted and the patient was transferred to ICU-patient was unable to tolerate BiPAP and he was emergently intubated. IV antibiotics were continued and the patient's sputum grew out Haemophilus influenza and Streptococcus pneumoniae. Patient underwent a protracted course in the ICU, PEG tube had to be inserted, he was seen in consultation by ENT who did not recommend a trach initially, as time went on, another ENT physician was consulted and agreed that the patient needed a tracheostomy. Patient was evaluated for transfer to an LTAC, tracheostomy was inserted on 02/12/2019-there were no complications. On 02/14/2019, patient was seen and examined: On examination he appeared lethargic, he did open his eyes to verbal stimuli and tactile stimuli. Vital signs as documented. Skin warm and dry and without overt rashes. Neck- tracheostomy is in place. Lungs clear. Heart exam notable for regular rhythm, normal sounds and absence of murmurs, rubs or gallops. Abdomen unremarkable and without evidence of organomegaly, masses, or abdominal aortic enlargement. PEG tube present. Extremities nonedematous. Neuro: Cranial nerves II through XII are grossly intact, patient is lethargic. Psych: Patient is lethargic but responds to verbal and tactile stimuli On 02/14/2019, patient was accepted for transfer to an LTAC in [facility], his status at the time of discharge from the ICU here was stable. - Physical Exam Vitals/I&O's: Vital Signs Temp Pulse Resp BP Pulse Ox 100.5 F H 123 H 12 113/71 96 02/14/19 12:00 02/14/19 13:00 02/14/19 13:00 02/14/19 13:00 02/14/19 13:00 Oxygen Flow Rate (L/min) 45 Oxygen Delivery Method Mechanical Ventilator Weight: 91.9 kg Body Mass Index (BMI) 30.7 Intake and Output for Last 24 Hours 02/13/19 02/14/19 02/15/19 23:59 23:59 23:59 Intake Total 1312.06 / 1793.06 1312.00 / 1312.00 Output Total 1150 / 1800 1175 / 1175 Balance 162.06 / -6.94 137.00 / 137.00 Microbiology Past 72 Hours 02/08/19 10:15 Blood Culture (Wb) - No Site/Description Given Blood Culture - Final No growth in 5 days. 02/08/19 09:38 Blood Culture (Wb) - Pic Blood Culture - Final No growth in 5 days. Home Medications: Medications to take at Discharge Acetaminophen Liquid [Tylenol Liquid] 650 mg GT Q6H PRN PRN udc 02/14/19 Albuterol Aerosols [Ventolin Aerosols] 2.5 mg INHALATION Q2H PRN PRN vial.neb. 02/14/19 Atorvastatin Calcium [Lipitor] 80 mg GT QHS tab 02/14/19 Enoxaparin [Lovenox] 90 mg SUBCUT Q12 syringe 02/14/19 Furosemide Liquid [Lasix Liquid] 40 mg GT BIDLX #1 ml 02/14/19 Gabapentin [Neurontin] 300 mg GT TID cap 02/14/19 Guaifenesin [Robitussin] 10 ml GT Q6H udc 02/14/19 Ipratropium/Albuterol Sulfate [Duoneb] 3 ml INHALATION Q4HWA.RT ampul.neb 02/14/19 Lansoprazole 30 mg GT DAILY capsule. 02/14/19 Potassium Chl Soln 40 meq GT DAILY udc 02/14/19 Quetiapine Fumarate [Seroquel] 150 mg GT BID tab 02/14/19 Valproate Sodium [Depakene] 500 mg GT 4X/DAY udc 02/14/19 Following Prescrptions Were Given to Patient: Furosemide Liquid [Lasix Liquid] 40 mg GT BIDLX #1 ml Primary Care Physician: Josefina Newby MD [Primary Care Provider] - Please Follow Up With: Josefina Newby MD Disposition: Skilled Nursing Acute Care Minutes spent on discharge:: 36 Patient Condition:: Stable Medical Necessity - Tobacco Use Smoking Status: Current every day smoker Tobacco Use: Cigarettes Meaningful Use Info Meaningful Use Diagnoses (Choose all that apply): None applicable Code Visit Inpatient E&M: 27578 Disch Hosp
== END 2019-02-14 13:57 | DRG 5 ==
LOC: ED 18:42 → PCU 21:15 → ICU 01-26 10:22
PROVIDERS: Family Medicine; Internal Medicine; Internal Medicine Critical Care Medicine; Nurse Practitioner Family; Otolaryngology; Psychiatry & Neurology Neurology; Student in an Organized Health Care Education/Training Program; Surgery; Admitting Provider Family Medicine; Emergency Provider Emergency Medicine; Family Provider Internal Medicine; PCP Internal Medicine; Visit Provider Internal Medicine
PROC: 0DJ08ZZ Inspection of Upper Intestinal Tract, Via Natural or Artificial Opening Endoscopic (ICD-10-PCS; CPT 43235; principal; 2019-02-06 12:55)
PROC: 0B110F4 Bypass Trachea to Cutaneous with Tracheostomy Device, Open Approach (ICD-10-PCS; principal; 2019-02-12 13:45)
DX: J44.1 Chronic obstructive pulmonary disease with (acute) exacerbation (principal); J96.21 Acute and chronic respiratory failure with hypoxia; F17.210 Nicotine dependence, cigarettes, uncomplicated; G40.909 Epilepsy, unspecified, not intractable, without status epilepticus; E78.5 Hyperlipidemia, unspecified; E66.9 Obesity, unspecified; R47.81 Slurred speech; Z79.01 Long term (current) use of anticoagulants; J69.0 Pneumonitis due to inhalation of food and vomit; Z99.81 Dependence on supplemental oxygen; I26.99 Other pulmonary embolism without acute cor pulmonale; B96.3 Hemophilus influenzae [H. influenzae] as the cause of diseases classified elsewhere; Z68.30 Body mass index [BMI] 30.0-30.9, adult; Z86.718 Personal history of other venous thrombosis and embolism; Z86.711 Personal history of pulmonary embolism; B95.3 Streptococcus pneumoniae as the cause of diseases classified elsewhere; E87.5 Hyperkalemia; I10 Essential (primary) hypertension
CPT/HCPCS: 31500; 31720; 36415; 36569; 36600; 70450; 70544; 70547; 70551; 71045; 71046; 71275; 74018; 80048; 80053; 80061; 80076; 80164; 80202; 80307; 80320; 81001; 82140; 82550; 82607; 82747; 82803; 82962; 83036; 83519; 83605; 83735; 84100; 84132; 84425; 84443; 84478; 84484; 85014; 85025; 85610; 85652; 85730; 87040; 87070; 87077; 87086; 87186; 87205; 87633; 87804; 92507; 92523; 92526; 92610; 93005; 93306; 94002; 94003; 94640; 94660; 94667; 94668; 94762; 95831; 97110; 97112; 97162; 97164; 97166; 97168; 97530; 97535; 97802; 97803; 99251; 99285; 99406; J2997; J7030; J7040; J7050; J7120; Q9957; Q9967; A4216; C8929; G0463; G0480; J0295; J1940; J7799